=== PATIENT | female | born 1950 | race Caucasian/White ===

== ENCOUNTER → 2018-01-21 12:41 | Outpatient (CLI) | payer MEDICARE, OTHER, SELFPAY ==
--- NOTE | 2018-01-21 12:43 | ECHOD_ITS ---
Reason For Study: GALLOP RHYTHM Procedure This was a 2D Doppler, Color Flow transthoracic echocardiogram. Exam performed in department. Left Ventricle Normal LV size. Left ventricular systolic function is normal. The estimated ejection fraction is 60 %. Transmitral diastolic flow velocities suggest mild (stage 1) diastolic dysfunction (reversed pattern). No regional wall motion abnormalities noted. Right Ventricle Normal RV size. Normal systolic function. Atria Normal left atrium. Normal right atrium. Mitral Valve Normal mitral valve. Mild (1+) eccentric mitral valve insufficiency. Tricuspid Valve Normal tricuspid valve. Mild (1+) tricuspid valve insufficiency. Pulmonary artery systolic pressure is 29 mmHg. Aortic Valve Normal aortic valve. Pulmonic Valve The pulmonic valve is not well visualized. Great Vessels Normal aortic root. The pulmonary artery is normal size. Normal inferior vena cava. Pericardium/Pleural No pericardial effusion. MMode/2D Measurements & Calculations LVIDd: 3.6 cm IVSd: 1.1 cm Ao root diam: 3.1 cm LVIDs: 2.6 cm LVPWd: 1.0 cm RVDd: 3.0 cm FS: 27.2 % LAV(MOD-bp): 44.7 ml EDV(MOD-sp4): 80.0 ml SV(MOD-sp4): 46.6 ml LAV(MOD-bp) Indexed: 23.1 ml/m2 ESV(MOD-sp4): 33.4 ml LAV(MOD-sp2): 44.4 ml EF(MOD-sp4): 58.3 % LAV(MOD-sp4): 41.6 ml LA A4 area: 16.5 cm2 RA A4 area: 13.0 cm2 Time Measurements MV dec time: 0.19 sec Doppler Measurements & Calculations MV E max gabriel: 67.9 cm/sec Lat Peak E' Gabriel: 13.3 cm/sec Med Peak E' Gabriel: 9.3 cm/sec MV A max gabriel: 79.9 cm/sec E/E' lat: 5.1 E/E' med: 7.3 MV E/A: 0.85 Ao V2 max: 136.5 cm/sec LV V1 max: 94.8 cm/sec PA V2 max: 145.2 cm/sec Ao max P.5 mmHg LV V1 max P.6 mmHg TR max gabriel: 259.1 cm/sec TR max P.9 mmHg Interpretation Summary Normal LV size. Left ventricular systolic function is normal. The estimated ejection fraction is 60 %. Transmitral diastolic flow velocities suggest mild (stage 1) diastolic dysfunction (reversed pattern). Mild (1+) eccentric mitral valve insufficiency. Mild (1+) tricuspid valve insufficiency. Ordering Physician: Damian Craig Referring Physician: Damian Craig Performed By: Andriy, Melissa, RDCS
== END ==
PROVIDERS: Family Provider Family Medicine; PCP Family Medicine; Visit Provider Family Medicine
DX: R00.8 Other abnormalities of heart beat (principal)
CPT/HCPCS: 93306

== ENCOUNTER → 2018-01-22 07:38 | Outpatient (CLI) | payer MEDICARE, SELFPAY ==
[2018-01-22 10:07] LABS: Absolute Lymphocyte Count 1.29 X10^3/ul (0.83-4.51); Absolute Neutrophil Count 2.9 X10^3/uL (2.0-7.7); Basophil# 0.01 X10^3/uL; Basophil% 0.2 % (0-1); Eosinophil# 0.24 X10^3/uL; Hematocrit 41.5 % (37-47); Hemoglobin 13.7 g/dl (12.0-15.0); Lymphocyte # 1.29 X10^3/ul (4.0); Lymphocyte % 26.7 % (19-41); Mean Corpuscular Hgb 30.4 pg (27.0-32.0); Mean Corpuscular Volume 92.2 fL (81-99); Mean Platelet Vol. 9.7 fl (6.2-12.0); Monocyte% 8.3 % (0-10); Neutrophil # 2.89 X10^3/uL (2.7-7.7); Neutrophil % 59.8 % (47-70); Platelet Count 181 K/mm3 (150-450); RBC Distribution Width CV 13.3 % (11.6-14.6); White Blood Count 4.8 K/mm3 (4.4-11.0)
[2018-01-22 10:09] LABS: POSITIVE COUNT NO; POSITIVE DIFFERENTIAL NO; POSITIVE MORPHOLOGY NO
[2018-01-22 10:45] LABS: ALB/GLOB Ratio 0.8 RATIO (0.9-2.4); AST(SGOT) 15 U/L (15-37); Alanine Aminotransfer ALT/SGPT 18 U/L (13-56); Alkaline Phosphatase 80 U/L (45-117); Anion Gap 9 (5-15); BUN 14 mg/dL (7-18); BUN/Creat Ratio 22.8 RATIO (10-20); Calcium,Total 8.5 mg/dL (8.5-10.1); Chloride 108 mmol/L (98-107); Cholesterol 227 mg/dL (200); Creatinine, Serum 0.61 mg/dL (0.55-1.02); EST Glomerular Filtration Rate 104 mL/min (>60); Est Glom Filt Rate - Afr Amer 126 mL/min (>60); Globulin 3.6 g/dL (2.2-4.2); Glucose 88 mg/dL (74-106); High Density Lipoprotein 55 mg/dL; Potassium 4.1 mmol/L (3.5-5.1); Protein, Total 6.6 g/dL (6.4-8.2); Sodium Level 142 mmol/L (136-145); Thyroid Stim Hormone (TSH) 3.87 uIU/mL (0.358-3.74); Triglycerides 80 mg/dL; Very Low Density Lipoprotein 16 mg/dL (5-40)
== END ==
PROVIDERS: Family Provider Family Medicine; PCP Family Medicine; Visit Provider Family Medicine
DX: Z00.00 Encounter for general adult medical examination without abnormal findings (principal); N81.4 Uterovaginal prolapse, unspecified; R00.8 Other abnormalities of heart beat
CPT/HCPCS: 36415; 80053; 80061; 84443; 85025

== ENCOUNTER 2018-01-29 07:07 | Day surgery (SDC) | payer MEDICARE, OTHER, SELFPAY ==
[2018-01-29] VITALS (8 sets, daily range): BP systolic 104–138; BP diastolic 53–84; PULSE 78–110; RESP 16–18; TEMP 36.3–36.9; O2SAT 94–98; BMI 35.2
[2018-01-29] MEDS: Phenazopyridine 95 MG Tablet 190 MG PO (07:00)
--- NOTE | 2018-01-29 08:24 | PCM.OPRPT ---
Problem List (1) Uterovaginal prolapse, incomplete Status: Acute (2) Female stress incontinence Status: Acute Report of Operation Date of Procedure: 01/29/18 Pre-Operative Diagnosis: Uterovaginal prolapse and stress incontinence Post-Operative Diagnosis: same Surgery/Procedure Performed:: Total vaginal hysterectomy, bilateral salpingectomy, uterosacral ligament suspension, anterior colporrhaphy, midurethral sling and cystoscopy Description of Surgical Findings:: The patient was taken to the operating room where general anesthesia was initiated. The patient was placed in dorsal lithotomy position and prepped and draped in sterile fashion. A surgical timeout occurred. A sandy catheter was placed in the patient's bladder. A weighted speculum was placed in the patient's vagina. A curved [place] was used to retract the anterior vaginal wall and bladder out of the field. The cervix was grasped with two Kati traction forceps. The cervix was then injected with 0.25% marcaine mixed with epinephrine. A circumferential incision with a 10 blade scalpel was then made incising the vagina mucosa down to the body of the cervix. The posterior vaginal epithelium was then dissected off the cervix until the peritoneum of the pouch of Ward was reached. This was then grasped and cut with Orta scissors entering the peritoneal cavity. A long weighted speculum was then placed in the posterior cul-de-sac. Attention was then turned to the anterior vaginal wall epithelium which was grasped with pickups and dissected, along with the bladder, off of the cervix and the uterus until the peritoneal reflection was visualized. This was then grasped with pickups and incised with Metzenbaum scissors, entering the peritoneal cavity anteriorly. The sanyd bulb was palpated to confirm that the bladder was not perforated. The Ping was then used to retract the bladder out of the operative field. A curved Beverly clamp was then used to clamp, cut and suture ligate the uterosacral ligament on the patient's left side. This was repeated on the contralateral side. Next, the vessels of the broad ligament including the uterine vessels were clamped, cut and suture ligated bilaterally. Finally, the utero-ovarian ligament was clamped cut and suture ligated; first with a tie on a passer and then with a Beverly stitch. The uterus and cervix were passed off the sterile field and sent to pathology. With two Breisky Navratil retractors placed anteriorly and posteriorly in the vagina, the bowel was packed out of the cul-de-sac using a moist Kerlex sponge. A 0-Maxon with an HGU-46 needle on a long needle road train driver was passed through the uterosacral ligament on the patients right side. This was followed by a 2-0 prolene suture using an SH needle. This was repeated on the contralateral side. The instruments and packing were removed from the vagina. The patient was given 5 mg of Lasix IV and 5 cc of Indigo [place]. Cystoscopy was then performed while holding tension on the uterosacral ligament suspensions sutures. Bilateral efflux of orange urine was seen from ureteral orifices. The vaginal epithelium overlying the anterior vaginal wall was grasped with two Allis clamps, injected with 0.25% Marcaine with epinephrine and a midline incision was made over the herniation of the anterior vaginal wall. The underlying pubocervical fascia was dissected off the overlying vaginal epithelium until the herniation of the pubocervical fascia was completely exposed. Hemostasis was achieved with electrosurgical cautery. The herniation was repaired in the traditional fashion using imbricating horizontal mattress sutures of 2-O PDS on a CT-1 needle. Once the hernation was completely repaired, the redundant vaginal epithelium was excised and the incision was closed with a running, locking 3-O vicryl suture. Excellent hemostasis was noted. The sutures were then bought through the corners of the vaginal cuff. The cuff was closed with interrupted 0-vicryl sutures. The uterosacral ligament sutures were then tied, elevating the vaginal vault. The vaginal epithelium overlying the mid-urethra was grasped with two Allis clamps, injected with 0.25% Marcaine with epinephrine and a 1.5 cm midline incision was made over the mid urethra using a 15 blade scalpel. Tunnels were dissected bilaterally to the pubic rami and the Advantage Fit trocars were passed through the tunnels on the right side, through the space of Retzius and out the skin at at the pubic symphysis. This was repeated on the patient's left side. Cystoscopy was performed and there was no evidence of bladder or urethral injury. The sling was then drawn up through the space of Retzius and out the skin at the pubic symphysis. Tension was adjusted by placing a Wangensteen forceps between the sling and the urethra. Once adequate tension was adjusted, the plastic sheaths were removed. The redundant sling was trimmed at the skin edges and the skin was repaired with Indermil. The vaginal epithelium was repaired with a running 3-0 Vicryl suture. The vagina was packed with Kerlex gauze soaked in estrogen cream. Anesthesia was discontinued. All needle, instrument, and sponge counts were correct x 2. The patient was taken to recovery room in stable condition draining clear urine from her sandy catheter. materials supervisor: Naty Mehta Type of Anesthesia:: General - Endotracheal
--- NOTE | 2018-01-29 08:29 | OP.PCM_ITS ---
Problem List (1) Uterovaginal prolapse, incomplete Status: Acute (2) Female stress incontinence Status: Acute Report of Operation Date of Procedure: 01/29/18 Pre-Operative Diagnosis: Uterovaginal prolapse and stress incontinence Post-Operative Diagnosis: same Surgery/Procedure Performed:: Total vaginal hysterectomy, bilateral salpingectomy, uterosacral ligament suspension, anterior colporrhaphy, midurethral sling and cystoscopy Description of Surgical Findings:: The patient was taken to the operating room where general anesthesia was initiated. The patient was placed in dorsal lithotomy position and prepped and draped in sterile fashion. A surgical timeout occurred. A sandy catheter was placed in the patient's bladder. A weighted speculum was placed in the patient's vagina. A curved [place] was used to retract the anterior vaginal wall and bladder out of the field. The cervix was grasped with two Kati traction forceps. The cervix was then injected with 0.25% marcaine mixed with epinephrine. A circumferential incision with a 10 blade scalpel was then made incising the vagina mucosa down to the body of the cervix. The posterior vaginal epithelium was then dissected off the cervix until the peritoneum of the pouch of Ward was reached. This was then grasped and cut with Orta scissors entering the peritoneal cavity. A long weighted speculum was then placed in the posterior cul-de-sac. Attention was then turned to the anterior vaginal wall epithelium which was grasped with pickups and dissected, along with the bladder, off of the cervix and the uterus until the peritoneal reflection was visualized. This was then grasped with pickups and incised with Metzenbaum scissors, entering the peritoneal cavity anteriorly. The sandy bulb was palpated to confirm that the bladder was not perforated. The Ping was then used to retract the bladder out of the operative field. A curved Beverly clamp was then used to clamp, cut and suture ligate the uterosacral ligament on the patient's left side. This was repeated on the contralateral side. Next, the vessels of the broad ligament including the uterine vessels were clamped, cut and suture ligated bilaterally. Finally, the utero-ovarian ligament was clamped cut and suture ligated; first with a tie on a passer and then with a Beverly stitch. The uterus and cervix were passed off the sterile field and sent to pathology. With two Breisky Navratil retractors placed anteriorly and posteriorly in the vagina, the bowel was packed out of the cul-de-sac using a moist Kerlex sponge. A 0-Maxon with an HGU-46 needle on a long needle coal tram driver was passed through the uterosacral ligament on the patients right side. This was followed by a 2- 0 prolene suture using an SH needle. This was repeated on the contralateral side. The instruments and packing were removed from the vagina. The patient was given 5 mg of Lasix IV and 5 cc of Indigo [place]. Cystoscopy was then performed while holding tension on the uterosacral ligament suspensions sutures. Bilateral efflux of orange urine was seen from ureteral orifices. The vaginal epithelium overlying the anterior vaginal wall was grasped with two Allis clamps, injected with 0.25% Marcaine with epinephrine and a midline incision was made over the herniation of the anterior vaginal wall. The underlying pubocervical fascia was dissected off the overlying vaginal epithelium until the herniation of the pubocervical fascia was completely exposed. Hemostasis was achieved with electrosurgical cautery. The herniation was repaired in the traditional fashion using imbricating horizontal mattress sutures of 2-O PDS on a CT-1 needle. Once the hernation was completely repaired , the redundant vaginal epithelium was excised and the incision was closed with a running, locking 3-O vicryl suture. Excellent hemostasis was noted. The sutures were then bought through the corners of the vaginal cuff. The cuff was closed with interrupted 0-vicryl sutures. The uterosacral ligament sutures were then tied, elevating the vaginal vault. The vaginal epithelium overlying the mid-urethra was grasped with two Allis clamps, injected with 0.25% Marcaine with epinephrine and a 1.5 cm midline incision was made over the mid urethra using a 15 blade scalpel. Tunnels were dissected bilaterally to the pubic rami and the Advantage Fit trocars were passed through the tunnels on the right side, through the space of Retzius and out the skin at at the pubic symphysis. This was repeated on the patient's left side. Cystoscopy was performed and there was no evidence of bladder or urethral injury. The sling was then drawn up through the space of Retzius and out the skin at the pubic symphysis. Tension was adjusted by placing a Wangensteen forceps between the sling and the urethra. Once adequate tension was adjusted, the plastic sheaths were removed. The redundant sling was trimmed at the skin edges and the skin was repaired with Indermil. The vaginal epithelium was repaired with a running 3-0 Vicryl suture. The vagina was packed with Kerlex gauze soaked in estrogen cream. Anesthesia was discontinued. All needle, instrument, and sponge counts were correct x 2. The patient was taken to recovery room in stable condition draining clear urine from her sandy catheter. patient services representative: Naty Mehta Type of Anesthesia:: General - Endotracheal
--- NOTE | 2018-01-29 08:45 | UT_PTH ---
PATIENT: KRISTA TALAVERA LOC: [facility] [place] U#:[id number] AGE/SX: 67/F ROOM: RE01/29/[address]: Dr. Negrita Cortez MD : 1950 BED: DIS: 01/29/2018 SPEC #: [id number] RECD: 01/29/18 12:26 STATUS: ALEXEI JERO #: [id number] ZHEN: 01/29/18 08:[address]: Negrita Cortez DEPT: SURGICAL PATHOLOGY RECD BY: Fer Bran ENTERED: 01/29/18 13:13 SP TYPE: UTERUS OTHR DR: Dr. Damian Craig MD Tissues: Uterus, NOS Procedures: Surgery Specimen Level V HEADER OPERATION: Hysterectomy, total vaginal, anterior repair, sling, cysto, uterosacral ligament fixation PRE-OP DIAGNOSIS: Uterovaginal prolapse; stress urinary incontinence TISSUE SUBMITTED: Uterus, vaginal mucosa MICROSCOPIC DIAGNOSIS Uterus, vaginal mucosa, total vaginal hysterectomy with anterior repair: Cervix ? mild chronic inflammation. Endometrium ? inactive endometrium with cystic changes. Myometrium ? adenomyosis. - focal subserosal benign glandular inclusion. Vaginal mucosa ? fragments of squamous mucosa with focal hyperkeratosis and parakeratosis. SJ:yvonne 02/01/18 MICROSCOPIC DESCRIPTION Slides are reviewed. GROSS DESCRIPTION Received in fixative is one container labeled with the patient's name and designated uterus and vaginal mucosa. The specimen consists of a uterus with cervix without fallopian tubes and ovaries measuring 7.6 x 4 x 3.5 cm and weighing 45.5 gm. The ectocervix is unremarkable. The cervical os is [place] in contour. The endocervical canal measures 3 cm in length and is grossly unremarkable. The triangular endometrial cavity measures 3.5 x 2 cm. The velvety, light steward endometrium measures up to 0.2 cm. The myometrium measures 1.5 cm in greatest thickness and is free of mass lesions. Also present in the container are two glistening fragments of pink-steward mucosa with attached hemorrhagic submucosal tissue measuring in aggregate 5 x 5 x 0.6 cm. No mucosal mass lesions are identified. Plumbing Assembler Installer sections are submitted in six cassettes as follows: 1 - anterior cervix, 2 - posterior cervix, 3 & 4 - anterior uterine wall, 5 - posterior uterine wall, 6 ? vaginal mucosa. / AM:yvonne 01/29/18 TC:5 CPT: 62135
[2018-01-29] MEDS: Bupiv/Epi 0.5% Mpf 30 ML Vial (08:57)
[2018-01-29] MEDS: Cefazolin 2 GM in 0.9% Normal Saline 100 ML IV (08:57)
--- NOTE | 2018-01-29 10:19 | PCM.DC.VHY ---
Discharge Activity: Return to Normal Activity, May not drive while taking narcotic pain medications. May shower in (days): 1 May resume sexual activity in: 6 weeks Call your doctor if your incision/area has: Continuous Slow Oozing, Sudden Increased Bleeding, Increased Pain/ Swelling, Increased Redness, Foul Smelling Discharge, Swelling at the incision site Call your doctor if you observe: Fever of 101 or Higher, Inability to urinate, Inability to have a bowel movement, Using more than one pad per hour Allergies/Adverse Reactions: Allergies No Known Allergies Allergy (Verified 01/22/18 10:07) Medications to take at Discharge Paroxetine HCl [Paxil] 20 mg PO DAILY 01/22/18 Primary Care Physician: Damian Craig MD [Primary Care Provider] - Please Follow Up With: Negrita Cortez MD When: 6 weeks Proposed Discharge Date: 01/29/18
--- NOTE | 2018-01-29 14:47 | NURSING ---
BLADDER SCAN SHOWS [phone], PT CONTINUES TO DENY URGE TO VOID. SITTING AT EDGE OF BED TAKING PO FLUIDS NOW. WILL CONTINUE TO MONITOR.
== END 2018-01-29 16:02 | disposition home or self-care (01) ==
LOC: SDC 07:09 → AC 07:09 → MS2 08:50 → AC 10:54
PROVIDERS: Family Provider Family Medicine; PCP Family Medicine; Visit Provider Obstetrics & Gynecology
PROC: (CPT 58260; principal; 2018-01-29 08:25)
DX: N80.0 Endometriosis of uterus (principal); N89.4 Leukoplakia of vagina; N72 Inflammatory disease of cervix uteri; R23.4 Changes in skin texture; N39.3 Stress incontinence (female) (male); F32.9 Major depressive disorder, single episode, unspecified; F41.9 Anxiety disorder, unspecified; Z79.899 Other long term (current) drug therapy; Z87.891 Personal history of nicotine dependence
CPT/HCPCS: 57240; 57288; 58260; 58700; 88307; J7120; C1771; J2405

== ENCOUNTER → 2018-02-09 14:56 | Outpatient (CLI) | payer MEDICARE, OTHER, SELFPAY ==
--- NOTE | 2018-02-09 14:57 | BI_ITS ---
MAMMOGRAPHY - BILATERAL SCREENING REASON FOR EXAM: Female, 67 years old. Routine annual screening examination. PERTINENT HISTORY: Grandmother with breast cancer. Remote left stereotactic breast biopsy. TECHNIQUE: Digital bilateral breast jenny (3D mammographic acquisition) in the CC and MLO projections. 2-D mediolateral oblique (MLO) and craniocaudad (CC) views of both breasts were obtained. CAD: Full Field Digital Mammography with Computer Added Detection was performed. COMPARISON: Comparison is made with prior study dated December 25, 2016 and November 19, 2015. FINDINGS: Breast Composition: The breasts are almost entirely fatty. There are no dominant masses or suspicious calcifications. A tissue clip marker is once again seen in the upper lateral portion of the left breast. No other significant abnormalities are identified. There has been no significant change since the prior study. BI/SCREENING MAMM (CAD), BILAT IMPRESSION: Stable bilateral screening mammogram. Yearly follow-up mammogram recommended. (A) ASSESSMENT CATEGORY: BIRADS Category 2: Benign. A letter regarding these results will be sent to the patient by the facility within 30 days. Approximately 10% of breast cancers are not detected by mammography. A normal mammogram should not delay biopsy of a clinically suspicious abnormality. [id number] Electronically Signed: Xavier Crane MD at 8:14 EDT Tel [phone], Service support ,
== END ==
PROVIDERS: Family Provider Family Medicine; PCP Family Medicine; Visit Provider Family Medicine
DX: Z12.31 Encounter for screening mammogram for malignant neoplasm of breast (principal)
CPT/HCPCS: 77063; 77067

== ENCOUNTER → 2018-08-11 12:22 | Outpatient (CLI) | payer MEDICARE, OTHER, SELFPAY ==
--- NOTE | 2018-08-11 12:27 | RAD_ITS ---
STUDY: X-RAY - PELVIS AND LEFT HIP REASON FOR EXAM: Female, 68 years old. Left hip pain TECHNIQUE: Radiological exam, hip, unilateral, with pelvis when performed; 2 or 3 views. COMPARISON: None. FINDINGS: Severe osteoarthritic changes are seen in the right hip. Moderate osteoarthritic changes are seen in the left hip. The sacroiliac joints are normal. There are no fractures. RAD/HIP, UNI W/ Pelvis 2-3 Views IMPRESSION: Osteoarthritis of both hips especially on the right. No fracture Electronically Signed: Suleman Murphy MD at 4:56 EST Tel , Service support ,
== END ==
PROVIDERS: Family Provider Family Medicine; PCP Family Medicine; Referring Provider Family Medicine; Visit Provider Family Medicine
DX: M25.552 Pain in left hip (principal)
CPT/HCPCS: 73502

== ENCOUNTER → 2019-06-01 | Outpatient (CLI) | payer MEDICARE, OTHER, SELFPAY ==
--- NOTE | 2019-06-01 07:59 | BI_ITS ---
MAMMOGRAPHY - BILATERAL SCREENING REASON FOR EXAM: Female, 69 years old. Routine annual screening examination. PERTINENT HISTORY: Grandmother with breast cancer. Remote left stereotactic breast biopsy. TECHNIQUE: Digital bilateral breast mague (3D mammographic acquisition) in the CC and MLO projections. 2-D mediolateral oblique (MLO) and craniocaudad (CC) views of both breasts were obtained. CAD: Full Field Digital Mammography with Computer Added Detection was performed. COMPARISON: Comparison is made with prior study dated February 09, 2018 and December 25, 2016. FINDINGS: Breast Composition: The breasts are almost entirely fatty. There are no dominant masses or suspicious calcifications. A tissue clip marker is once again seen in the upper lateral aspect of the left breast No other significant abnormalities are identified. There has been no significant change since the prior study. BI/SCREEN MAMM (CAD) W/MAGUE BILAT IMPRESSION: Stable bilateral screening mammogram. Yearly follow-up mammogram recommended. (A) ASSESSMENT CATEGORY: BIRADS Category 2: Benign. A letter regarding these results will be sent to the patient by the facility within 30 days. Approximately 10% of breast cancers are not detected by mammography. A normal mammogram should not delay biopsy of a clinically suspicious abnormality. [id number] Electronically Signed: Xavier Crane, at 10:36 EDT , Service support ,
== END | disposition home or self-care (01) ==
LOC: OPBI 07:56
PROVIDERS: Family Provider Family Medicine; PCP Family Medicine; Referring Provider Family Medicine; Visit Provider Family Medicine
DX: Z12.31 Encounter for screening mammogram for malignant neoplasm of breast (principal)
CPT/HCPCS: 77063; 77067

== ENCOUNTER → 2020-05-17 | Outpatient (CLI) | payer MEDICARE, OTHER, SELFPAY ==
[2020-05-17 10:08] LABS: Absolute Lymphocyte Count 1.33 X10^3/uL (0.83-4.51); Absolute Neutrophil Count 2.7 X10^3/uL (2.0-7.7); Basophil# 0.01 X10^3/uL; Basophil% 0.2 % (0-1); Eosinophil# 0.13 X10^3/uL; Eosinophils% 2.8 % (0-5); Hematocrit 41.8 % (37-47); Hemoglobin 13.4 g/dL (12.0-15.0); Lymphocyte # 1.33 X10^3/ul (4.0); Lymphocyte % 29.1 % (19-41); Mean Corp Hgb Conc 32.1 g/dL (32-36); Mean Corpuscular Hgb 30.4 pg (27.0-32.0); Mean Corpuscular Volume 94.8 fL (81-99); Mean Platelet Vol. 9.5 fl (6.2-12.0); Monocyte# 0.35 X10^3/uL; Monocyte% 7.7 % (0-10); NRBC Flagged by Analyzer 0 % (0-5); Neutrophil # 2.74 X10^3/uL (2.7-7.7); Platelet Count 174 K/mm3 (150-450); RBC Distribution Width CV 12.2 % (11.6-14.6); RBC Distribution Width SD 42.3 fl (35.1-43.9); Red Blood Count 4.41 M/mm3 (4.2-5.4); White Blood Count 4.6 K/mm3 (4.4-11.0)
[2020-05-17 10:25] LABS: Hemoglobin A1c 5.2 % (3.8-5.6)
[2020-05-17 10:28] LABS: Vitamin D,25 Hydroxy 40.7 ng/mL
[2020-05-17 10:33] LABS: Anion Gap 3 (5-15); BUN 18 mg/dL (7-18); Calcium,Total 8.6 mg/dL (8.5-10.1); Chloride 110 mmol/L (98-107); Cholesterol 188 mg/dL (200); Creatinine, Serum 0.55 mg/dL (0.55-1.02); EST Glomerular Filtration Rate 118 mL/min (>60); Est Glom Filt Rate - Afr Amer 143 mL/min (>60); Glucose 93 mg/dL (74-106); High Density Lipoprotein 50 mg/dL; Sodium Level 142 mmol/L (136-145); Thyroid Stim Hormone (TSH) 3.59 uIU/mL (0.358-3.74); Triglycerides 72 mg/dL; Very Low Density Lipoprotein 14 mg/dL (5-40)
== END | disposition home or self-care (01) ==
LOC: MFPLAB 08:06
PROVIDERS: PCP Family Medicine; Referring Provider Family Medicine; Visit Provider Family Medicine
DX: M19.90 Unspecified osteoarthritis, unspecified site (principal); M85.80 Other specified disorders of bone density and structure, unspecified site; E66.9 Obesity, unspecified; Z68.32 Body mass index [BMI] 32.0-32.9, adult
CPT/HCPCS: 36415; 80048; 80061; 82306; 83036; 84443; 85025

== ENCOUNTER → 2020-05-23 | Outpatient (CLI) | payer MEDICARE, OTHER, SELFPAY ==
[2018-01-29 08:14] VITALS: BMI 35.2
--- NOTE | 2020-05-23 08:27 | BD_ITS ---
STUDY: DUAL ENERGY X-RAY ABSORPTIOMETRY / DXA REASON FOR EXAM: Female, 70 years old. Pat is 187# and 63.25 and quot; a loss of 1.75 and quot; per pat. Early edgar 35. Hx of HRT. Past hx of smoking 50 yrs ago. Was on a bone building med in the past but for only a few months. Exercises moderatly. TECHNIQUE: Bone Mineral Density (BMD) measurements of lumbar spine and bilateral hips were obtained. COMPARISON: Comparison is made with prior examination dated 05/08/2011. FINDINGS: Lumbar Spine (L1-L4): g/cm2 (1.124) / T-score (-0.6) / Z-score (1.0) Findings are suggestive of normal bone density with a low fracture risk. Left Femur Total: g/cm2 (0.693) / T-score (-2.5) / Z-score (-1.1) Left Femoral Neck: g/cm2 (0.945) / T-score (-0.7) / Z-score (0.9) Right Femur Total: g/cm2 (0.721) / T-score (-2.3) / Z-score (-0.9) Right Femoral Neck: g/cm2 (0.901) / T-score (-1.0) / Z-score (0.6) The T-Scores on the most recent prior examination were: Lumbar Spine (L1-L4): There has been improvement of bone density since the previous examination. Left Femur Total: which represents a worsening of 17%. Right Femur Total: which represents a worsening of 12.9%. BD/Dexa Bone Density Study IMPRESSION: The patient is considered osteopenic as outlined below according to World Maxx Organization (WHO) criteria with a high fracture risk. There has been worsening of bone density since the previous examination. Reference Information: The T-score is the number of standard deviations above or below the standard which is normal for young adults at their peak bone mineral density. The World Health Organization (WHO) interprets the T-scores as follows: Above -1 Normal bone density Between -1 and -2.5 Osteopenia Equal to / or below -2.5 Osteoporosis As a practical clinical guideline, osteopenia may be graded as follows: Mild -1 through -1.5 Moderate -1.6 through -2.0 Severe -2.1 through -2.4 The Z-score is the number of standard deviations above or below age-matched controls. A Z-score of less than -1.5 would be considered abnormal. References: 1. NIH Osteoporosis and Related Bone Diseases http://www.osteo.org 2. International Society for Clinical Densitometry http://www.iscd.org 3. National Osteoporosis Foundation http://www.nof.org Electronically Signed: Xavier Crane, at 15:54 EDT , Service support ,
== END | disposition home or self-care (01) ==
LOC: OPBD 08:19
PROVIDERS: PCP Family Medicine; Referring Provider Family Medicine; Visit Provider Family Medicine
DX: M85.80 Other specified disorders of bone density and structure, unspecified site (principal); N95.9 Unspecified menopausal and perimenopausal disorder
CPT/HCPCS: 77080

== ENCOUNTER 2020-06-27 10:00 | Outpatient (RCR) | payer MEDICARE, OTHER, SELFPAY ==
[2018-01-29 08:14] VITALS: BMI 35.2
--- NOTE | 2020-05-24 12:52 | HP.PTEVAL_ITS ---
Patient's Visit Information KRISTA TALAVERA is a 70 year old F referred to Physical Therapy by Dr. Damian Craig MD with a diagnosis of Bilateral Hip Pain. Date of Evaluation: 05/24/20 Physical Therapist: Lorenza Davis DPT - Visit Plan Frequency: 2x /Week Duration: 4 Weeks Plan: Focus on LE and core strength for functional mobility - Subjective Patient reports that she is having problems with both hips. She use to walk 4 miles and now just going to the grocery wears her out. Has problems with stairs, getting in/out of the car. The left one hurts more than the right. She has a truck so which is a harder one to get in/out of. Both hips bother her at night- sleep is disturbed when she rolls over onto them but then she can go right back to sleep. Worst: 3/10 Agg: being up on them. Best: 0/10 Eases: sit down- When she sit down the pain goes away instantly. When she rests and then gets back to it its okay. Pain is located in the groin- describes the pain as achy. When she is on her feet she feel like she has a weight on her low back. No radiating pain- No N/T in the LE. Did have bone density scans and x- rays on her hips. The right is worse than the left for OA- and will hear of her bone denisity tomorrow. She scrubbed a lot of floors when she was younger so she thinks that part of the problem and her balance is not that great- but has not had any falls. She would like to get more active but her hips are pr eventing that. PMHX: none Meds: Paxil. - Objective Posture: FH, RS, increased kyphosis- unable to correct and maintain. Gait: slightly antalgic- decreased stance bilateral with moderate hip drop. HR/TR: able without pain but uses UE. Stairs: asc/desc 8 recip with 2 HR- propulsion with UE and poor control with descent. SLS: unable without UE and reports pain in left hip. Palpation: tender along greater troch bilaterally andinto the gluts on the left. Sensation: WFL. ROM: Left: Hip- flexion: 90 degrees, extn: netral, IR: 30 derees, ER: neutral, Abd: 50 degrees, Knee/Ankle: WNL. Right: Hip- flexion: 100 degrees xtn: netral, IR: 30 derees, ER: neutral, Abd: 50 degrees, Knee/Ankle: WNL. Strength:Core: fair minus, Hip: 4-/5, Knee: 5/5, Ankle: 5/5. Special Test: Scour: positive, JEF: positive. Dural Signs: negative - Goals Goal 1:: Patient will be I with HEP and progression Goal Time Frame: 4-6 Weeks Goal 2:: Patient will ambulate >300 feet with a normalized gait pattern Goal Time Frame: 4-6 Weeks Goal 3:: Patient will asc/desc 8' stairs recip with 1 HR and good technique Goal Time Frame: 4-6 Weeks Goal 4:: Patient will demo 4+/5 throughout LE Goal Time Frame: 4-6 Weeks Goal 5:: Patient will report no more than 2/10 pain Goal Time Frame: 4-6 Weeks - Rehabilitation Potential Physical Therapy Diagnosis: Patient presents with hypomobility-she has decreased ROM,strength, flex and muscular endurance leading to abnormal gait and decreased ability to perform painfree ADL's Rehabilitation Potential: Fair - Anticipated Interventions Therapeutic Exercise to Include: Strength training, Endurance training, Balance training, Agility training, Body mechanics, Postural training, Flexibilty training, Gait and locomotor training, Neuromotor development, Passive ROM, Active ROM, Dynamic Lumbar Stabilization, Scapular Strength/Stabilization For the Purpose of:: To improve muscle performance and motor function TENS: Yes Cryotherapy (ice pack, ice massage): Yes Thermo therapy (hot pack): Yes Thank you for the opportunity to evaluate your patient. For Medicare and Medicare HMO plans, please review the plan of care and approve it. It will need to be FAXED BACK to us at [phone] for Medicare purposes. For Medicare only, by signing this I certify the plan of care. Please let me know if there are questions or concerns regarding this plan of care. Physician Signature: Date:
--- NOTE | 2020-06-27 10:51 | HP.PTDCSUM ---
It has been my pleasure to treat KRISTA TALAVERA referred by Dr. Damian Craig MD, with the diagnosis of Bilateral Hip Pain for a total of 10 visit(s). Discharge Date: Please see the following information for a summary of their discharge status. Subjective: Patient reports that she does not feel that she is doing a lot better. She feels she can continue the exercises at home. She reports that its not bad to walk but if she is in the store for an hour it starts to bother her and she wants to sit down. She feels stiff if she sits down for to long. Right Hip Pain Intensity (Out of 10): 4 Left Hip Pain Intensity (Out of 10): 4 % Improvement: 50 Objective/Function: Posture: FH, RS, increased kyphosis- unable to correct and maintain. Gait: slightly antalgic- decreased stance bilateral with moderate hip drop. HR/TR: able without pain but uses UE. Stairs: asc/desc 8 recip with 1 HR- fair form. SLS: weight shift fully but does not take her hands off the wall Palpation: tender along greater troch bilaterally andinto the gluts on the left. Sensation: WFL. Strength:Core: fair, Hip: 4/5, Knee: 5/5, Ankle: 5/5. Special Test: Scour: positive, JEF: positive. Dural Signs: negative Goal 1:: Patient will be I with HEP and progression Goal 2:: Patient will ambulate >300 feet with a normalized gait pattern Goal 3:: Patient will asc/desc 8' stairs recip with 1 HR and good technique Goal 4:: Patient will demo 4+/5 throughout LE Goal 5:: Patient will report no more than 2/10 pain Plan: Discharge to [facility] If there are questions or concerns regarding this patient's physical therapy, please feel free to call me at [phone]. Thank you for the referral of this patient. Sincerely, Lorenza Davis DPT
== END 2020-06-27 13:27 | disposition home or self-care (01) ==
LOC: PT 10:00
PROVIDERS: PCP Family Medicine; Referring Provider Family Medicine; Visit Provider Family Medicine
DX: M16.0 Bilateral primary osteoarthritis of hip (principal)
CPT/HCPCS: 97110; 97162; 97164

== ENCOUNTER → 2020-11-12 11:42 | Outpatient (CLI) | payer MEDICARE, OTHER, SELFPAY ==
[2018-01-29 08:14] VITALS: BMI 35.2
[2020-11-12 15:10] LABS: Absolute Lymphocyte Count 1.27 X10^3/uL (0.83-4.51); Basophil# 0.01 X10^3/uL; Basophil% 0.1 % (0-1); Eosinophil# 0.03 X10^3/uL; Eosinophils% 0.4 % (0-5); Hematocrit 47.3 % (37-47); Hemoglobin 15.2 g/dL (12.0-15.0); Lymphocyte # 1.27 X10^3/ul (4.0); Mean Corp Hgb Conc 32.1 g/dL (32-36); Mean Corpuscular Hgb 30.1 pg (27.0-32.0); Mean Corpuscular Volume 93.7 fL (81-99); Mean Platelet Vol. 9.5 fl (6.2-12.0); Monocyte# 0.41 X10^3/uL; Monocyte% 6.1 % (0-10); NRBC Flagged by Analyzer 0 % (0-5); Neutrophil # 4.97 X10^3/uL (2.7-7.7); Neutrophil % 74.3 % (47-70); Platelet Count 193 K/mm3 (150-450); RBC Distribution Width CV 12.1 % (11.6-14.6); RBC Distribution Width SD 42.2 fl (35.1-43.9); Red Blood Count 5.05 M/mm3 (4.2-5.4); White Blood Count 6.7 K/mm3 (4.4-11.0)
[2020-11-12 15:45] LABS: ALB/GLOB Ratio 0.9 RATIO (0.9-2.4); AST(SGOT) 15 U/L (15-37); Alanine Aminotransfer ALT/SGPT 19 U/L (13-56); Albumin, Serum 3.4 g/dL (3.2-5.0); Alkaline Phosphatase 94 U/L (45-117); Anion Gap 8 (5-15); BUN 18 mg/dL (7-18); BUN/Creat Ratio 26.7 RATIO (10-20); Calcium,Total 9.3 mg/dL (8.5-10.1); Chloride 108 mmol/L (98-107); Creatinine, Serum 0.68 mg/dL (0.55-1.02); EST Glomerular Filtration Rate 92 mL/min (>60); Est Glom Filt Rate - Afr Amer 111 mL/min (>60); Globulin 3.8 g/dL (2.2-4.2); Glucose 117 mg/dL (74-106); Potassium 4.1 mmol/L (3.5-5.1); Protein, Total 7.2 g/dL (6.4-8.2); Sodium Level 142 mmol/L (136-145); Thyroid Stim Hormone (TSH) 2.88 uIU/mL (0.358-3.74)
== END ==
PROVIDERS: PCP Family Medicine; Visit Provider Family Medicine
DX: I47.1 Supraventricular tachycardia (principal)
CPT/HCPCS: 36415; 80053; 84443; 85025

== ENCOUNTER → 2020-11-29 06:30 | Outpatient (CLI) | payer MEDICARE, OTHER, SELFPAY ==
[2020-11-21 08:56] VITALS: BMI 34.0
--- NOTE | 2020-11-29 06:33 | ECHOD_ITS ---
Reason For Study: A. fib Procedure This was a 2D Doppler, Color Flow transthoracic echocardiogram. Exam performed in department. Left Ventricle Normal LV size. Left ventricular systolic function is normal. The estimated ejection fraction is 65 %. Stage 1 diastolic dysfunction. No regional wall motion abnormalities noted. Right Ventricle Normal RV size. Normal systolic function. Atria Normal left atrium. Normal right atrium. Bubble contrast study negative for right to left interatrial shunt. Mitral Valve Normal mitral valve. Tricuspid Valve Normal tricuspid valve. Mild tricuspid valve insufficiency. Aortic Valve Normal aortic valve. Trisinus/trileaflet aortic valve. Mild (1+) eccentric aortic valve insufficiency. Pulmonic Valve The pulmonic valve is not well visualized. Great Vessels Normal aortic root. The pulmonary artery is normal size. Normal inferior vena cava. Pericardium/Pleural No pericardial effusion. Medication Performed a rapid injection of agitated mix of 9 cc saline and 1cc air to assess for atrial septal defect. MMode/2D Measurements & Calculations LVIDd: 3.6 cm IVSd: 1.1 cm Ao root diam: 3.2 cm LVIDs: 2.1 cm LVPWd: 1.0 cm RVDd: 3.3 cm FS: 41.0 % LAV(MOD-bp): 44.3 ml LVAd ap4: 28.7 cm2 SV(MOD-sp4): 51.4 ml LAV(MOD-bp) Indexed: 22.9 ml/m2 EDV(MOD-sp4): 78.3 ml LAV(MOD-sp2): 38.3 ml EDV(sp4-el): 80.7 ml LAV(MOD-sp4): 46.1 ml LVAs ap4: 15.1 cm2 ESV(MOD-sp4): 26.9 ml ESV(sp4-el): 26.4 ml EF(MOD-sp4): 65.6 % EF(sp4-el): 67.3 % SV(sp4-el): 54.3 ml LA A4 area: 17.0 cm2 LA dimension(2D): 4.0 cm RA A4 area: 12.2 cm2 Doppler Measurements & Calculations MV E max gabriel: 64.6 cm/sec Lat Peak E' Gabriel: 7.9 cm/sec Med Peak E' Gabriel: 9.1 cm/sec MV A max gabriel: 103.5 cm/sec E/E' lat: 8.2 E/E' med: 7.1 MV E/A: 0.62 Ao V2 max: 146.8 cm/sec AI max gabriel: 451.0 cm/sec LV V1 max: 118.1 cm/sec Ao max P.6 mmHg AI max P.4 mmHg LV V1 max P.6 mmHg AI dec slope: 426.7 cm/sec2 AI P1/2t: 309.6 msec PA V2 max: 166.8 cm/sec TR max gabriel: 234.9 cm/sec TR max P.1 mmHg Interpretation Summary Normal LV size. Left ventricular systolic function is normal. The estimated ejection fraction is 65 %. Stage 1 diastolic dysfunction. Bubble contrast study negative for right to left interatrial shunt. Mild tricuspid valve insufficiency. Ordering Physician: Xander Fitzgerald Referring Physician: Damian Craig MD Performed By: Deepti Bush RDCS
--- NOTE | 2020-11-29 09:19 | STRESSREP ---
Stress Test Report Exercise myocardial perfusion stress test. 70-year-old lady with a history of chest pain. Stress protocol: Resting EKG demonstrates normal sinus rhythm with a rate of 75 bpm normal intervals are noted resting blood pressure is 116/70 mmHg. The patient exercised according to regular Shahzad protocol for a total duration of 5 minutes and 30 seconds. The maximum heart rate attained was 164 bpm which was 107% of maximum predicted heart rate the maximum workload was 7 metabolic equivalents. At rest there were no ST or T wave changes noted suggest ischemia at peak exercise upsloping ST changes only were noted with no meet the criteria for ischemia. The resting blood pressure was 116/70 with a peak blood pressure 154/80 mmHg. Myocardial perfusion protocol. 11.5 mCi of technetium 99m sestamibi was injected at rest. The patient exercised according to regular Shahzad protocol for 5-1/2 minutes and at peak exercise 32.6 mCi of technetium 99m sestamibi was injected stress images were obtained stress and rest images were reconstructed and compared in the short axis vertical long horizontal long axis. Gated images were also obtained Perfusion SPECT analysis: Review of the stress images demonstrate normal uptake of tracer noted in all areas of the myocardium the resting images similarly demonstrate normal uptake of tracer noted in all areas of the myocardium. No areas of reversibility are noted suggest ischemia no previous infarct is noted. Gated SPECT analysis: The gated ejection fraction is 67%. Conclusion: Normal exercise myocardial perfusion stress test at a moderate workload. Preserved ejection fraction.
== END ==
PROVIDERS: PCP Family Medicine; Referring Provider Internal Medicine Cardiovascular Disease; Visit Provider Internal Medicine Cardiovascular Disease
DX: R94.31 Abnormal electrocardiogram [ECG] [EKG] (principal); I48.0 Paroxysmal atrial fibrillation
CPT/HCPCS: 78452; 93017; 93306; A9500; A4216

== ENCOUNTER 2021-01-31 09:18 | Outpatient (RCR) | payer MEDICARE, OTHER, SELFPAY ==
[2020-12-11 08:29] VITALS: BMI 34.0
[2021-01-03 10:34] VITALS: BMI 35.0
[2021-01-03 12:56] LABS: Prothrombin Time (Protime)PT. 12.5 SECONDS (11.7-14.9)
[2021-01-10 10:15] LABS: International Normalized Ratio 1.3; Prothrombin Time (Protime)PT. 15.9 SECONDS (11.7-14.9)
[2021-01-17 10:16] LABS: International Normalized Ratio 1.5; Prothrombin Time (Protime)PT. 17.6 SECONDS (11.7-14.9)
[2021-01-24 11:12] LABS: International Normalized Ratio 1.3; Prothrombin Time (Protime)PT. 15.9 SECONDS (11.7-14.9)
[2021-01-31 10:37] LABS: Prothrombin Time (Protime)PT. 21.6 SECONDS (11.7-14.9)
== END 2021-01-31 18:00 | disposition home or self-care (01) ==
LOC: LAB 09:18
PROVIDERS: PCP Family Medicine; Referring Provider Physician Assistant Medical; Visit Provider Physician Assistant Medical
DX: I48.0 Paroxysmal atrial fibrillation (principal)
CPT/HCPCS: 36415; 85610

== ENCOUNTER 2021-02-14 09:07 | Outpatient (RCR) | payer MEDICARE, OTHER, SELFPAY ==
[2021-01-03 10:34] VITALS: BMI 35.0
[2021-02-14 09:40] LABS: International Normalized Ratio 2.6; Prothrombin Time (Protime)PT. 27.4 SECONDS (11.7-14.9)
== END 2021-02-14 18:00 | disposition home or self-care (01) ==
LOC: LAB 09:07
PROVIDERS: PCP Family Medicine; Referring Provider Physician Assistant Medical; Visit Provider Physician Assistant Medical
DX: I48.0 Paroxysmal atrial fibrillation (principal)
CPT/HCPCS: 36415; 85610

== ENCOUNTER 2021-03-07 10:51 | Outpatient (RCR) | payer MEDICARE, OTHER, SELFPAY ==
[2021-01-03 10:34] VITALS: BMI 35.0
== END 2021-03-07 18:00 | disposition home or self-care (01) ==
LOC: LAB 10:51
PROVIDERS: PCP Family Medicine; Referring Provider Physician Assistant Medical; Visit Provider Physician Assistant Medical
DX: I48.0 Paroxysmal atrial fibrillation (principal)

== ENCOUNTER 2021-03-13 15:59 | Observation (INO) | payer MEDICARE, OTHER, SELFPAY ==
[2021-01-03 10:34] VITALS: BMI 35.0
--- NOTE | 2021-02-25 22:56 | PCM.HP.BLA ---
History and Physical History and Physical [facility] Patient Name: Joselin Singer : 1950 From:? TUYET ANDERSON PA-C? DATE OF SURGERY:? 03/13/2021 SCHEDULED PROCEDURE:? right total hip arthroplasty HISTORY OF PRESENT ILLNESS: This is a 70-year-old female who has had ongoing pain for over 2 years with regards to her right hip.? She also gets pain in the left hip.? Pain can reach 6/10 with activities.? Her pain has been gone, aching, stabbing.? She has increased pain with going up and down stairs, sitting, and walking.? She does get pain and bilateral groin as well as into the anterior thigh.? Denies any numbness and tingling.? She does have start up pain.? She has difficulty with activities of daily living including getting dressed as well as shopping.? She has tried rest with no relief in symptoms.? She has been through physical therapy and home exercises without relief.? She denies previous surgery on the right hip.? Patient has a medical history pertinent for hypertension, atrophic fibrillation in which she has on Coumadin.? We're obtaining surgical clearance from the primary care physician and records management technician .? Crime Prevention Worker was okay with stopping the Coumadin 3 days prior to surgery.? She will resume this postoperatively.? Patient denies any chest pain, shortness of breath, fevers chills or recent infections.? After failing conservative measures and discussing treatment options with Dr. Elmo Velásquez, the patient does wish to proceed with a right total hip arthroplasty. REVIEW OF SYSTEMS: ROS: Const: Reports weight change, but denies change in appetite and fever. CV: Reports irregular heartbeat, but denies chest pain and heart murmur. Resp: Denies cough, pneumonia, shortness of breath, tuberculosis and wheezing. GI: Denies constipation, diarrhea, heartburn, nausea, rectal itching, bloody stools and vomiting. : Reports incontinence. Musculo: Reports trouble walking and weakness, but denies leg swelling and pain. Skin: Denies Raynaud's, history of shingles and tattoo. Neuro: Denies ambulatory dysfunction, dizziness, numbness/tingling and tremor. Psych: Reports anxiety, but denies insomnia and stress. Eamon/Lymph: Denies anemia, bleeding/bruising tendency and past transfusion. Reviewed, no changes. PAST MEDICAL HISTORY: Advance Care Plan: Other Directive, POA Effective Date: 01/09/2021 Other Directive, LIVING WILL Effective Date: 01/09/2021 PMH: Medical Problems: Arthritis, Hard of Hearing, High Blood Pressure Covid-19 Vaccinated - (12/20/2020)(01/17/2021) A-Fib Accidents: None Surgical Hx: Hysterectomy, Tonsillectomy, Tubal Ligation Anesthesia Complications: None Assistive Devices: Glasses Reviewed, no changes. SOCIAL HISTORY: SH: Marital: .Occupation: Retired.Work Status: Retired.Hand Dominance: Left-handed. Personal Habits:? Cigarette Use: Former.Smokeless Tobacco: Never Used Smokeless Tobacco.E-Cigarette Use: Never used.Alcohol: Denies use.Drug Use: Denies Use.Enjoy Exercising: Never Exercises. Reviewed and updated. VITALS: Ht: 64.3 Wt: 204lb Wt k.534 BMI: 34.7 BP: 135/76 Pulse: 63 Resp: 14 T: 97.3 T: 36.3C Pain Level: 2 ALLERGIES: No Known Drug Allergy? MEDICATIONS: Warfarin Sodium 3 mg 1 daily, Metoprolol Tartrate 25 mg 1 by mouth twice a day, Super B Complex? 2 daily, Sarabjit Red , Magnesium Oxide (Elemental) 400 mg 2 daily, Paroxetine HCL 30 mg 1 by mouth every day, Calcium + D3? 2 daily, Tylenol 8 Hour Arthritis Pain 650 mg every 4 hour as needed pain PRE-OP EXAM:? General appearance:NORMAL? ? ? Other: Eyes: Conjunctivae and lids: NORMAL? Pupils: ERR Ears, Nose, Mouth, and Throat: NORMAL? Other: Inspection of lips, teeth and gums: NORMAL? ?Other: Neck: Examination of neck: no masses noted. Respiratory: Assessment of respiratory effort: NORMAL? ?Other: ?Auscultation of lungs: clear to auscultation no wheezes, rhonchi or rales. Cardiovascular:? Auscultation of heart: regular rate and rhythm, no murmurs, gallops or rubs. Exam of carotid arteries: NORMAL? ?Other: Gastrointestinal:? Exam of abdomen: soft, nontender, nondistended bowel sounds present. PHYSICAL EXAMINATION: Patient does walk with an antalgic gait.? There is tenderness to palpation over bilateral greater trochanteric region.? Right hip she has obligatory external rotation with flexion.? Flexion 60, internal rotation 10, external rotation 20.? Sensation intact to light touch.? Neurovascularly intact. IMAGING STUDIES: Previous x-rays of the right hip reveal joint space narrowing, subchondral sclerosis, osteophyte formation consistent with severe stage IV osteoarthritis IMPRESSION: 1.? Severe right hip osteoarthritis 2.? Left hip osteoarthritis 3.? Hypertension 4.? History of atrial fibrillation currently on Coumadin PLAN: Dr. Elmo Velásquez did discuss and review with the patient all treatment options including surgical versus nonsurgical options.? Patient does wish to proceed with the above-stated procedure.? Potential risks, benefits, and complications of the procedure were discussed in detail including but not limited to , infection, nerve and blood vessel damage, persistent pain, numbness, tingling, paresthesias, blood clot, pulmonary embolism, and requirement for possible further surgery.? The patient expressed full understanding and has no further questions for the doctor.? Patient does agree to proceed with the above-stated procedure and has signed the surgery consent form. We discussed the current risks associated with COVID 19.? This does include the risk of exposure while in the hospital.? Patient was reassured local hospitals have low infection rates and are taking all necessary precautions to avoid exposure to patients.? In addition, we discussed strategies that can be used to help limit exposure including those that limit the patient's time in the hospital.? Also using strategies to limit the patient's need for continued inpatient services after being discharged from the hospital.? Patient was notified that we will need to comply with any screening or testing the hospital wishes to perform or that surgery may be delayed for any positive results. This dictation was created using voice recognition software. Phonetic and/or grammatical errors may exist. ___? I have re-examined the patient.? There are no clinical changes since date of exam. ___? See progress notes for changes. ___? Dictated on admission Date: ? ? ?Time: Signature:
[2021-03-07 11:55] LABS: Absolute Lymphocyte Count 1.72 X10^3/uL (0.83-4.51); Absolute Neutrophil Count 3.3 X10^3/uL (2.0-7.7); Basophil# 0.03 X10^3/uL; Basophil% 0.5 % (0-1); Eosinophil# 0.11 X10^3/uL; Hematocrit 40.6 % (37-47); Hemoglobin 13.3 g/dL (12.0-15.0); Lymphocyte # 1.72 X10^3/ul (0.83-4.51); Lymphocyte % 30.7 % (19-41); Mean Corp Hgb Conc 32.8 g/dL (32-36); Mean Corpuscular Hgb 30.7 pg (27.0-32.0); Mean Corpuscular Volume 93.8 fL (81-99); Mean Platelet Vol. 9.5 fl (6.2-12.0); Monocyte# 0.42 X10^3/uL; Monocyte% 7.5 % (0-10); NRBC Flagged by Analyzer 0 % (0-5); Neutrophil # 3.32 X10^3/uL (2.7-7.7); Neutrophil % 59.1 % (47-70); Platelet Count 171 K/mm3 (150-450); RBC Distribution Width CV 12.5 % (11.6-14.6); RBC Distribution Width SD 43.3 fl (35.1-43.9); Red Blood Count 4.33 M/mm3 (4.2-5.4); White Blood Count 5.6 K/mm3 (4.4-11.0)
[2021-03-07 12:01] LABS: International Normalized Ratio 2.1; Prothrombin Time (Protime)PT. 22.7 SECONDS (11.7-14.9)
[2021-03-07 12:40] LABS: Anion Gap 4 (5-15); BUN 18 mg/dL (7-18); BUN/Creat Ratio 29.1 RATIO (10-20); Chloride 104 mmol/L (98-107); Creatinine, Serum 0.62 mg/dL (0.55-1.02); EST Glomerular Filtration Rate 102 mL/min (>60); Est Glom Filt Rate - Afr Amer 123 mL/min (>60); Glucose 90 mg/dL (74-106); Magnesium 2.4 mg/dL (1.6-2.6); Potassium 4.2 mmol/L (3.5-5.1); Sodium Level 139 mmol/L (136-145)
[2021-03-13] VITALS (15 sets, daily range): BP systolic 95–143; BP diastolic 55–78; PULSE 68–83; RESP 16; TEMP 36–37.1; O2SAT 95–100; BMI 36.1
--- NOTE | 2021-03-13 07:14 | OP.PCM_ITS ---
Report of Operation Date of Procedure: 03/13/21 Pre-Operative Diagnosis: Right hip primary osteoarthritis Post-Operative Diagnosis: Right hip primary osteoarthritis Surgery/Procedure Performed:: Right minimally invasive direct anterior total hip replacement Description of Surgical Findings:: Stable hip with equal leg length Surgeon: Elmo Velásquez bed operator: Shannon Mary Type of Anesthesia: Spinal Special Medications: 2 g Ancef, 2 g TXA lavage prior to closure, 10 mg Decadron, joint cocktail (5 mg Duramorph, 30 mL of 0.5% Ropivicaine, 1000 units of epinephrine, 30 mg of Toradol) Specimen's removed: Bony cuts Estimated Blood Loss (mL): 250 Fluids Replaced: 1000 mL crystalloid Description of Procedure: Components used: 1. Accolade 2 Jass femoral stem size 4 132? 2. [place] trident 2 acetabular shell size 52 mm 3. [place] X3 polyethylene E 4. Jass Biolox delta 36mm, -5mm femoral head Brief history operative indications: 71 yo F who failed conservative measures for their hip osteoarthritis. X-rays were consistent with osteoarthritis including joint space narrowing, osteophyte formation and subchondral cysts. Total hip replacement was discussed with the patient with risks and benefits including but not limited to blood loss, DVTs, PEs, neurovascular damage, dislocation, general risks of anesthesia including loss of life. Patient demonstrated an understanding medical clearance is obtained the patient was consented for surgery. Procedure: On the date of procedure the patient's right hip was marked in the preoperative area. Patient was then taken back to the operating room where anesthesia assumed control of the C-spine and airway and administered anesthetic. Patient was transferred to the operating table and placed in the supine position. The hips were placed at the break of the bed and a sacral bump was placed. The right lower extremity was then prepped out in a sterile fashion using chlorhexidine while the surgeon scrubbed. The PA was vital in the positioning of the patient. Upon reentering the room the right lower extremity was draped in the standard orthopedic fashion and the incision was marked. A timeout was called and everyone agreed upon the side, the site, the procedure be performed, antibody given, and patient's identity. At this time incision was made through skin, subcutaneous tissue, and fat down to fascia. The fascia was then incised and the TFL was retracted laterally. A retractor was placed on the lateral border of the femoral neck. Attention was directed to the inferior portion of the approach and all crossing vessels were identified and appropriately coagulated. A retractor was then placed on the medial portion of the femoral neck. The anterior capsule was then cleared of all soft tissue and then H shaped capsulotomy was made. The retractors were then placed inside the capsule. The femoral neck was identified and a cleanup cut was made. At this time a power corkscrew was used to remove the femoral head. Attention was then turned toward the acetabulum where the soft tissues were appropriately retracted and the acetabulum was sequentially reamed to 52 mm. A 52 mm cup was then selected and impacted into place. Acetabular liner was impacted into place and locking mechanism was verified. The position of the acetabular cup was then verified under live fluoroscopy. Attention was then turned to the femur. Soft tissue releases on the medial and lateral femoral neck were appropriately done, the leg was externally rotated and lateralized. A Baltazar retractor was placed medially and proximally to the greater trochanter this allowed appropriate visualization and exposure of the femoral canal. Rongeour was then used to remove excess lateral bone. A canal finder and entry broach were used to open the proximal canal. Once we verified we were down the femoral canal we subsequently broached up to a size 4 femur. The appropriate neck was placed in the previously selected head was trialed with a -5 mm neck. Traction was pulled and the hip was reduced with internal rotation. Once it was appropriately reduced and stability was checked. There was minimal shuck, equal leg lengths and appropriate stability with hyperextension and external rotation as well as with 90? flexion and internal rotation. Fluoroscopy was then also used to verify the position of the components and leg lengths using the contralateral side for comparison. The trial components were then dislocated the proximal femur was again exposed and the components were removed from the wound. The final components were verified and opened. The wound was copiously irrigated out with normal saline. The acetabulum was checked for any residual debris. The final components were placed and impacted. Traction and internal rotation were again used to reduce the hip. After adequate reduction the hip remained stable with appropriate leg lengths. The final components were once again checked with live fluoroscopy and were found to be satisfactory. The wound was then copiously irrigated with normal saline once more, and hemostasis was obtained. Closure was then done using #1 Vicryl runner to close the fascia. A 2-0 vicryl interuppted sutures were used to close the subcutaneous skin. A 3-0 Monocryl and Steri-Strips were used for final skin closure. A Silverlon dressing was placed. Patient was awakened by anesthesia and transferred to the [facility]. Patient was then transferred to the PACU for recovery. Postoperative plan: Patient will get 24 hours postop antibiotics. Patient will get in-house physical therapy and will be weight-bear as tolerated. Patient will follow up in office in 2 weeks for a wound check and x-rays. Patient will resume her Coumadin postoperatively for DVT prophylaxis she will bridge with Xarelto while in-house. Complications No intraoperative complications Admit VTE Documentation VTE Present on Admission: No VTE Mechan Device Prophylaxis: SCD's and Thigh High MARILYN Hose VTE Pharm Prophylaxis ordered?: Yes
[2021-03-13] MEDS: Lactated Ringers 1,000 ML 999 ML IV ×2 (09:04→12:16)
[2021-03-13] MEDS: Gabapentin 600 MG Tablet PO (09:04)
[2021-03-13] MEDS: Acetaminophen 500 MG Tablet 1000 MG PO ×3 (09:04→21:15)
[2021-03-13 09:14] LABS: International Normalized Ratio 1.1; Prothrombin Time (Protime)PT. 13.2 SECONDS (11.7-14.9)
[2021-03-13] MEDS: Lactated Ringers 1,000 ML 75 ML IV (09:25)
[2021-03-13] MEDS: Cefazolin 2 GM in 0.9% Normal Saline 100 ML IV (10:40)
--- NOTE | 2021-03-13 11:00 | HIP_PTH ---
PATIENT: KRISTA TALAVERA LOC: [id number] U#:[id number] AGE/SX: 71/F [place]: [facility] [place] [place]13/[address]: Dr. Lakshmi Bautista MD : 1950 BED: 1 DIS: 03/14/2021 SPEC #: [id number] RECD: 03/13/21 13:18 STATUS: ALEXEI SNEEDRoshni #: [id number] ZHEN: 03/13/21 11:[address]: Elmo Velásquez DEPT: SURGICAL PATHOLOGY RECD BY: Chu Pugh ENTERED: 03/13/21 13:25 SP TYPE: TOTAL HIP OTHR DR: Dr. Damian Craig MD Tissues: Hip, NOS Procedures: Decalcification bone/plaque Surgery Specimen Level IV HEADER OPERATION: ERAS, total hip anterior approach PRE-OP DIAGNOSIS: Severe right hip osteoarthritis TISSUE SUBMITTED: Right hip bone and soft tissue MICROSCOPIC DIAGNOSIS Bone and soft tissue of right hip, total hip resection: Severe degenerative joint disease. Trilineage hematopoiesis. AM:yvonne 03/18/2021 MICROSCOPIC DESCRIPTION Slides are reviewed. GROSS DESCRIPTION Received is one container labeled with the patient's name and designated right hip bone and soft tissue. The specimen consists of a steward femoral head measuring 4.5 x 4.5 x 4 cm. The articular surface displays prominent osteophyte formation, eburnation and bone erosion. Also present in the specimen container is a detached piece of bone consistent with portion of femoral neck measuring 4 x 3 x 1.2 cm. The soft tissue measures in aggregate 7 x 7 x 3 cm. Aircraft Quality Control Inspector sections are submitted in two cassettes as follows: 1 - soft tissue, 2 - bone after decalcification. / SJ:yvonne 03/13/21 TC:5 [facility]: [id number], [id number]
--- NOTE | 2021-03-13 11:00 | RAD_ITS ---
STUDY: X-RAY - PELVIS AND RIGHT HIP REASON FOR EXAM: Female, 71 years old. PAIN TECHNIQUE: 1 views of the pelvis and hip. COMPARISON: None. FINDINGS: The patient is status post right total hip replacement. There is good alignment. RAD/Hip 1 view with Pelvis IMPRESSION: Status post right total hip replacement. There is good alignment. Electronically Signed: Xavier Crane MD at 12:05 EDT , Service support ,
[2021-03-13 11:05] LABS: Bedside Glucose 69 mg/dL (70-110)
[2021-03-13 11:16] LABS: INR Fingerstick 1.7; Prothrombin Time Fingerstick 20.1 SEC (11.9-14.4)
--- NOTE | 2021-03-13 13:00 | RAD_ITS ---
STUDY: X-RAY - PELVIS AND RIGHT HIP REASON FOR EXAM: Female, 71 years old. Post Op -- AP both hips on single ronny/lateral of op hip PACU TECHNIQUE: 2 views of the pelvis and hip. COMPARISON: None. FINDINGS: The patient is status post right total hip replacement. There is good alignment. Postoperative soft tissue changes. RAD/Hip Min 2 Views (Portable) IMPRESSION: Status post right total hip replacement. There is good alignment. Postoperative soft tissue changes. Electronically Signed: Xavier Crane MD at 13:30 EDT , Service support ,
[2021-03-13] MEDS: Lactated Ringers 1,000 ML 125 ML IV (13:40)
[2021-03-13] MEDS: Ensure Surgery 237 ML LIQUID PO (16:29)
--- NOTE | 2021-03-13 16:41 | PN.HOSP_ITS ---
Subjective Subjective Status post right anterior total hip replacement. Currently feeling well at this time. Objective Data Objective Data Vital Signs: Vital Signs Temp Pulse Resp BP Pulse Ox 36.4 C L 73 16 143/70 H 96 03/13/21 16:02 03/13/21 16:02 03/13/21 16:02 03/13/21 16:02 03/13/21 16:02 Oxygen Flow Rate (L/min) 6 Oxygen Delivery Method Room Air Weight: 94 kg Body Mass Index (BMI) 36.1 Intake & Output: Intake and Output for Last 24 Hours 03/11/21 03/12/21 03/13/21 23:59 23:59 23:59 Intake Total 3335.5 / 3335.5 Balance 3335.5 / 3335.5 Lab / Micro Data Result Diagrams: 03/07/21 11:06 03/07/21 11:06 Labs: Laboratory Results - last 24 hr 03/13/21 03/13/21 03/13/21 08:41 08:44 09:22 POC PT 20.1 H PT 13.2 INR 1.7 1.1 POC Glucose 69 L Micro: Microbiology 03/07/21 11:06 Nasal Secretion Nasal Screen MRSA/MSSA - Final Radiography Diagnostic Testing: Radiology Impression Hip X-Ray 03/13/21 13:00 IMPRESSION: Status post right total hip replacement. There is good alignment. Postoperative soft tissue changes. Electronically Signed: Xavier Crane MD at 13:30 EDT , Service support , Physical Exam Const alert and oriented x3 Neck no lymphadenopathy Resp normal respiratory effort Cardio regular rate, regular rhythm, S1 normal heart sound and S2 normal heart sound GI normal to inspection, nondistended, normoactive bowel sounds, non-tender and non-distended Extremity normal to inspection Assessment & Plan Assessment/Plan (1) Paroxysmal atrial fibrillation: PLAN: 1. Paroxysmal atrial fibrillation * Currently rate controlled * Continue with metoprolol tartrate as well as anticoagulation with warfarin 2. Status post right hip replacement * Management per orthopedics 3. VTE prophylaxis: Patient currently on warfarin. Charges/Coding Visit Charges Inpatient E&M: 07463 Subs Hosp L2
[2021-03-13] MEDS: Senna/Docusate Sodium 1 Tablet 2 TABLET PO (21:15)
[2021-03-13] MEDS: Metoprolol Tartrate 25 MG Tablet PO (21:15)
[2021-03-13] MEDS: Cefazolin 1 GM/50 ML BAG IV (21:15)
[2021-03-13] MEDS: PARoxetine 10 MG Tablet 30 MG PO (21:26)
[2021-03-14] MEDS: oxyCODONE 5 MG Tablet 2.5 MG PO (01:58)
[2021-03-14 02:14] VITALS: BP 115/42; PULSE 63; RESP 16; TEMP 36.8; O2SAT 96
--- NOTE | 2021-03-14 05:59 | PN.ORTHO_ITS ---
Subjective Subjective 71-year-old female. 1 day status post right total hip replacement. Overall she is doing well. She notes she is more thigh discomfort this morning than last evening. Some numbness over the lateral thigh. No numbness and tingling distally. No shortness of breath or chest pain. She was able to get up to the chair for couple hours last evening. She is been happy with her progress so far. Objective Data Objective Data Vital Signs: Vital Signs Temp Pulse Resp BP Pulse Ox 98.3 F 63 16 115/42 L 96 03/14/21 02:14 03/14/21 02:14 03/14/21 02:14 03/14/21 02:14 03/14/21 02:14 Oxygen Flow Rate (L/min) 6 Oxygen Delivery Method Room Air Weight: 207 lb 3.752 oz Body Mass Index (BMI) 36.1 Intake & Output: Intake and Output for Last 24 Hours 03/12/21 03/13/21 03/14/21 23:59 23:59 23:59 Intake Total 4385.5 / 4985.5 600 / 600 Balance 4385.5 / 4985.5 600 / 600 Lab / Micro Data Result Diagrams: 03/07/21 11:06 03/07/21 11:06 Labs: Laboratory Results - last 24 hr 03/13/21 03/13/21 03/13/21 08:41 08:44 09:22 POC PT 20.1 H PT 13.2 INR 1.7 1.1 POC Glucose 69 L Micro: Microbiology 03/07/21 11:06 Nasal Secretion Nasal Screen MRSA/MSSA - Final Radiography Diagnostic Testing: Radiology Impression Hip X-Ray 03/13/21 13:00 IMPRESSION: Status post right total hip replacement. There is good alignment. Postoperative soft tissue changes. Electronically Signed: Xavier Crane MD at 13:30 EDT , Service support , Personally reviewed x-rays and agree Physical Exam Narrative Alert and oriented x3. Appears well this morning. No acute distress. Extremity Extremity Narrative: Right lower extremity: Dressing is clean dry and intact Sensations intact to light touch saphenous, sural, superficial peroneal, deep peroneal, and tibial distributions Motors intact EHL, DF, PF calves are soft and supple thigh is soft and supple, Mild ecchymosis laterally. Assessment & Plan Assessment/Plan (1) Anticoagulant long-term use: PLAN: Patient is restarted on her Coumadin postoperatively. She is been given 2 weeks of Eliquis at home. She will be given Xarelto here in the hospital. I have encouraged her to follow-up with her PCP in 3 to 4 days for INR check. I think it is very possible she can discontinue the Eliquis prior to the full 2 weeks when she is adequately bridged. (2) Paroxysmal atrial fibrillation: PLAN: Medically managed and stable. Anticoagulation addressed as above. (3) Status post total hip replacement, right: PLAN: Pain control: Continue current regimen. Patient doing well with Tylenol and oxycodone. No anti-inflammatory secondary to anticoagulation therapy. DVT prophylaxis: Coumadin with Eliquis bridging. Have recommended follow-up with her PCP to check INR and discontinue bridging as soon as appropriate. Therapy: Weightbearing as tolerated, activity as tolerated, anterior precau tions. Medical management: Medical comorbidities are well managed. Appreciate hospitalist service involvement in this patient. Laboratories: Pending at this time will follow and make adjustments as n ecessary. Disposition: Patient is doing well this morning. We will plan on discharge home after therapy today. Patient can discontinue her dressing 5 days postoperatively. First physical therapy is scheduled for March 18. [facility] Office:
[2021-03-14 06:03] VITALS: BP 130/49; PULSE 63; RESP 16; TEMP 36.7; O2SAT 96
[2021-03-14] MEDS: Acetaminophen 500 MG Tablet 1000 MG PO (06:05)
[2021-03-14] MEDS: Cefazolin 1 GM/50 ML BAG IV (06:06)
--- NOTE | 2021-03-14 06:06 | PCM.DC.SUM ---
Providers Date of Admission: 03/13/21 Primary Care Physician: Dr. Damian Craig MD Consultations 03/13/21 07:36 Consult: Hospitalist Routine Consulting Provider: Damian Chase Reason for Consult: post op med management EMERGENT Consult: No MD Notified: Yes Date Notified: 03/13/21 Time Notified: 15:53 Method of Notification: Text Reason For Visit: RT TOTAL ANTERIOR HIP Diagnosis Discharge Diagnosis (1) Anticoagulant long-term use: Status: Chronic Code(s): Z79.01 - long term acute care registered nurse (current) use of anticoagulants (2) Paroxysmal atrial fibrillation: Status: Chronic Code(s): I48.0 - Paroxysmal atrial fibrillation (3) Status post total hip replacement, right: Status: Acute Code(s): Z96.641 - Presence of right artificial hip joint Medications at Discharge Home Medications metoprolol tartrate 25 mg tablet 25 mg PO BID 11/19/20 paroxetine HCl 30 mg tablet 30 mg PO DAILY 12/11/20 magnesium oxide 400 mg PO DAILY tablet 01/03/21 warfarin 3 mg tablet 3 mg PO .COMPLEX #90 tablet 01/24/21 calcium carbonate-vitamin D3 [Calcium 600 + D(3)] 1 cap PO DAILY 02/26/21 omega-3 fatty acids [[place] 3 Fish Oil] 1,250 mg PO DAILY 02/26/21 vitamin B complex 1 tab PO DAILY 02/26/21 Weight / BMI Weight Weight: 207 lb 3.752 oz Body Mass Index (BMI) 36.1 ABG / Lab / Microbiology Data Result Diagrams: 03/07/21 11:06 03/07/21 11:06 Laboratory: Laboratory Results - last 24 hr 03/13/21 03/13/21 03/13/21 08:41 08:44 09:22 POC PT 20.1 H PT 13.2 INR 1.7 1.1 POC Glucose 69 L Microbiology: Microbiology 03/07/21 11:06 Nasal Secretion Nasal Screen MRSA/MSSA - Final Radiography Diagnostic Testing: Radiology Impression Hip X-Ray 03/13/21 13:00 IMPRESSION: Status post right total hip replacement. There is good alignment. Postoperative soft tissue changes. Electronically Signed: Xavier Crane MD at 13:30 EDT , Service support , D/C Instructions Discharge Diet: No restrictions Discharge Activity: May Not Drive May shower in (days): 1 (With back to shower) May resume sexual activity in: 6-8 weeks Ice area for (Minutes): 20 (every hour while awake.) Weight Bearing Status: Weight bearing as tolerated Keep extremity elevated above heart level: Operative Extremity Additional Activity Instructions: Wear elastic stockings for 2 weeks after your surgery. Call your doctor if your incision/area has: Continuous Slow Oozing, Sudden Increased Bleeding, Increased Pain/ Swelling, Increased Redness and Foul Smelling Discharge Call your doctor if you observe: Fever of 101 or Higher, Coldness, Increased Pain, Numbness or Tingling, Change in Color, Calf discomfort and Uncontrolled pain Change Dressing in: do not change dressing (and daily as needed.) Remove Dressing in: 5 days Additional Dressing/Incision Instructions: If incision is clean dry and intact may leave the wound open to air and continue showering. If there is continued drainage continue daily dry dressing changes and keep incision clean dry and intact until there is no drainage. Please Follow Up With: Elmo Velásquez MD When: 02/14/2021 Discharge Plan Admission Admit Date/Time: 03/13/21 15:59 Primary Reason for Your Visit: Right total hip replacement Attending Provider: Elmo Velásquez Primary Care Provider: Damian Craig Consulting Providers: Damian Chase Discharge Orders/Prescriptions Prescriptions: No Action metoprolol tartrate 25 mg tablet 25 mg PO BID RF: 0 magnesium oxide 400 mg magnesium tablet 400 mg PO DAILY RF: 0 paroxetine HCl 30 mg tablet 30 mg PO DAILY RF: 0 warfarin 3 mg tablet 3 mg PO .COMPLEX Qty: 90 RF: 11 vitamin B complex Tablet 1 tab PO DAILY RF: 0 [place] 3 Fish Oil Capsule 1,250 mg PO DAILY RF: 0 Calcium 600 + D(3) 600 mg calcium- 200 unit Capsule 1 cap PO DAILY RF: 0 Referrals / Follow Up: Damian Craig MD [Primary Care Provider] -
[2021-03-14] MEDS: Rivaroxaban 10 MG Tablet PO (06:08)
--- NOTE | 2021-03-14 06:09 | PCM.DC ---
Discharge Instructions Activity Discharge Activity: May Not Drive (while taking narcotic pain medications.) May shower in (days): 1 (Turned back to water shower did not directly run water over the dressing. Do NOT soak/submerge in tub/pool/gutierrez/stream/hot tub.) Additional Activity Instructions:: Wear elastic stockings for 2 weeks. DO NOT use alcohol with narcotic pain medication. DO NOT make important decisions while taking narcotic medication. If you have problems with taking your medication (rash, itching, nausea, etc.) call the office at once. Dressing / Incision Call your doctor if your incision/area has: Increased Redness and Foul Smelling Discharge Call your doctor if you observe: Fever of 101 or Higher Remove Dressing in: 5 days Additional Dressing/Incision Instructions:: If incision is clean dry and intact may leave the wound open to air and continue showering. If there is continued drainage continue daily dry dressing changes and keep incision clean dry and intact until there is no drainage. Follow Up Care Please Follow Up With: Amilcar Michaud PA-C When: 03-27-2021 10 ;00 Test Results: Test results from this visit will be discussed in further detail at your follow-up appointment, if applicable. Discharge Plan Admission Admit Date/Time: 03/13/21 15:59 Primary Reason for Your Visit: Right total hip replacement Attending Provider: Elmo Velásquez Primary Care Provider: Damian Craig Consulting Providers: Damian Chase Discharge Orders/Prescriptions Prescriptions: New acetaminophen 500 mg Tablet 1,000 mg PO Q8 Qty: 0 RF: 0 famotidine 20 mg Tablet 20 mg PO DAILY 30 Days Qty: 30 RF: 0 Ensure Surgery 0.08-1.4 gram-kcal/mL Liquid 237 ml PO TIDCM Qty: 0 RF: 0 sennosides-docusate sodium [Stool Softener-Stimulant Laxat] 8.6-50 mg Tablet 2 tab PO BID 5 Days Qty: 10 RF: 0 warfarin [Jantoven] 3 mg Tablet 3 mg PO Sharma@1700 Qty: 0 RF: 0 oxycodone 5 mg Tablet 5 - 10 mg PO Q4H PRN PRN (Reason: Pain Score 4-10) 5 Days Qty: 40 RF: 0 Continued metoprolol tartrate 25 mg tablet 25 mg PO BID RF: 0 magnesium oxide 400 mg magnesium tablet 400 mg PO DAILY RF: 0 paroxetine HCl 30 mg tablet 30 mg PO DAILY RF: 0 warfarin 3 mg tablet 3 mg PO .COMPLEX Qty: 90 RF: 11 Calcium 600 + D(3) 600 mg calcium- 200 unit Capsule 1 cap PO DAILY RF: 0 Held vitamin B complex Tablet 1 tab PO DAILY RF: 0 Hold Instructions: Resume on 03/27/21. omega-3 fatty acids Capsule 1,250 mg PO DAILY RF: 0 Hold Instructions: Resume on 03/27/21. Referrals / Follow Up: Damian Craig MD [Primary Care Provider] - (please f/u in 3-4 days to check INR and possible d/c eliquis)
[2021-03-14 06:16] LABS: Hematocrit 29.8 % (37-47); Hemoglobin 9.7 g/dL (12.0-15.0); Mean Corp Hgb Conc 32.6 g/dL (32-36); Mean Corpuscular Hgb 30.7 pg (27.0-32.0); Mean Corpuscular Volume 94.3 fL (81-99); Mean Platelet Vol. 9.6 fl (6.2-12.0); Platelet Count 130 K/mm3 (150-450); RBC Distribution Width CV 12.2 % (11.6-14.6); RBC Distribution Width SD 42.5 fl (35.1-43.9); Red Blood Count 3.16 M/mm3 (4.2-5.4); White Blood Count 8.8 K/mm3 (4.4-11.0)
[2021-03-14 06:29] LABS: International Normalized Ratio 1.2; Prothrombin Time (Protime)PT. 14.2 SECONDS (11.7-14.9)
[2021-03-14 06:38] LABS: Anion Gap 4 (5-15); BUN 15 mg/dL (7-18); BUN/Creat Ratio 29.5 RATIO (10-20); Calcium,Total 8.1 mg/dL (8.5-10.1); Chloride 109 mmol/L (98-107); Creatinine, Serum 0.51 mg/dL (0.55-1.02); EST Glomerular Filtration Rate 127 mL/min (>60); Est Glom Filt Rate - Afr Amer 154 mL/min (>60); Estimated Creatinine Clearance 43.92 ml/min; Glucose 114 mg/dL (74-106); Potassium 4.1 mmol/L (3.5-5.1); Sodium Level 138 mmol/L (136-145)
[2021-03-14] MEDS: Calcium Carb/Vitamin D 1 TABLET Tablet PO (08:20)
[2021-03-14] MEDS: Famotidine 20 MG Tablet PO (08:20)
[2021-03-14 08:21] VITALS: BP 130/49; PULSE 63
[2021-03-14] MEDS: Metoprolol Tartrate 25 MG Tablet PO (08:21)
[2021-03-14] MEDS: Ensure Surgery 237 ML LIQUID PO (08:26)
[2021-03-14] MEDS: Magnesium Chloride 64 MG Delay Rel.Tablet 128 MG PO (08:26)
--- NOTE | 2021-03-14 10:13 | PHA.DC.MC ---
Pharmacy Service has performed discharge medication reconciliation and counseling for this patient. The patient was counseled on the following discharge medications and changes in medications for homegoing were reviewed. 1. OXYCODONE 2. SENNA/DOCUSATE 3. TYLENOL 4. PEPCID The Reason for Use, instructions for use, and potential side effects were reviewed for all new medications. The patient's questions regarding all of their medications were answered. The patient was able to verbally demonstrate an understanding of their discharge medications. NOTE: Also discussed with the patient her warfarin and Eliquis bridging. Explained importance of following up with PCP, Dr. Craig, 3-4 days to have INR monitored so she would not have to be on her bridge therapy longer than necessary. Pt verbalized understanding. Home Medications metoprolol tartrate 25 mg tablet 25 mg PO BID 11/19/20 paroxetine HCl 30 mg tablet 30 mg PO DAILY 12/11/20 magnesium oxide 400 mg PO DAILY tablet 01/03/21 warfarin 3 mg tablet 3 mg PO .COMPLEX #90 tablet 01/24/21 Calcium 600 + D(3) 1 cap PO DAILY 02/26/21 omega-3 fatty acids 1,250 mg PO DAILY 02/26/21 vitamin B complex 1 tab PO DAILY 02/26/21 acetaminophen 1,000 mg PO Q8 #0 tab 03/14/21 famotidine 20 mg PO DAILY 30 Days #30 tab 03/14/21 nut.tx.comp. immune systm,reg [Ensure Surgery] 237 ml PO TIDCM #0 ml 03/14/21 oxycodone 5 - 10 mg PO Q4H PRN PRN 5 Days #40 tab 03/14/21 sennosides-docusate sodium [Stool Softener-Stimulant Laxat] 2 tab PO BID 5 Days #10 tab 03/14/21 warfarin [Jantoven] 3 mg PO Sharma@1700 #0 tab 03/14/21 The patient's discharge medication list was reviewed for discrepancies and discrepancies were resolved.
[2021-03-14 10:18] VITALS: BP 115/48; PULSE 77; RESP 16; TEMP 36.9; O2SAT 96
--- NOTE | 2021-03-14 10:35 | CASEMGMT ---
RN DEMI Face to Face with patient for initial transition planning/care coordination assessment. RN CM introduced self and role at [facility]. Patient sitting in chair, alert and oriented, at bedside. Patient willing to participate in assessment and is able to answer all questions appropriately. Care providers, pharmacy, and demographics verified. Patient wishes to discharge home and is setup with [facility] for outpatient therapy. Patient states she has no further needs or concerns at this time. CM to follow for discharge planning needs that may arise. PCP: Damian Craig Specialists: Amilcar vice president [employer] Preferred Pharmacy: [facility] Insurance: [facility], [facility] Prescription Benefit: yes Living Will/HPOA: yes, Kusum Singer LNOK: , daughter Living Arrangements: Patient lives with in a single story home with ramp to enter the home. Patient was independent at home prior to discharge. Transportation: DME/HHC: Ana states she has shower chair, grab bars, and walker. Patient is setup with [facility] for outpatient therapy starting Thursday. Disposition Plan: Patient to discharge home with family support and follow-up plans in place. Lucero COBB, RN, CM
--- NOTE | 2021-03-14 10:51 | PCM.PN.HOSP ---
Documented by User: Yoandy WORKMAN 03/14/21 10:57 Subjective Subjective Patient is a pleasant 71-year-old female comfortably resting in a chair, alert and orient x3. Patient denies chest pain, shortness of breath, palpitations, hemoptysis, sputum production, fever, chills, N/V/D. Objective Data Objective Data Vital Signs: Vital Signs Temp Pulse Resp BP Pulse Ox 98.5 F 77 16 115/48 L 96 03/14/21 10:18 03/14/21 10:18 03/14/21 10:18 03/14/21 10:18 03/14/21 10:18 Oxygen Flow Rate (L/min) 6 Oxygen Delivery Method Room Air Weight: 207 lb 3.752 oz Body Mass Index (BMI) 36.1 Intake & Output: Intake and Output for Last 24 Hours 03/12/21 03/13/21 03/14/21 23:59 23:59 23:59 Intake Total 4385.5 / 4985.5 1150 / 1150 Balance 4385.5 / 4985.5 1150 / 1150 Lab / Micro Data Result Diagrams: 03/14/21 05:46 03/14/21 05:46 Labs: Laboratory Results - last 24 hr 03/13/21 03/13/21 03/14/21 08:41 09:22 05:46 WBC 8.8 RBC 3.16 L Hgb 9.7 L Hct 29.8 L MCV 94.3 MCH 30.7 MCHC 32.6 RDW Std Deviation 42.5 RDW Coeff of Marielos 12.2 Plt Count 130 L MPV 9.6 POC PT 20.1 H PT INR 1.7 Sodium Potassium Chloride Carbon Dioxide Anion Gap BUN Creatinine Estim Creat Clear Calc Est GFR (MDRD) Af Amer Est GFR (MDRD) Non-Af BUN/Creatinine Ratio Glucose Calcium POC Glucose 69 L 03/14/21 03/14/21 05:46 05:46 WBC RBC Hgb Hct MCV MCH MCHC RDW Std Deviation RDW Coeff of Marielos Plt Count MPV POC PT PT 14.2 INR 1.2 Sodium 138 Potassium 4.1 Chloride 109 H Carbon Dioxide 25.0 Anion Gap 4 L BUN 15 Creatinine 0.51 L Estim Creat Clear Calc 43.92 Est GFR (MDRD) Af Amer 154 Est GFR (MDRD) Non-Af 127 BUN/Creatinine Ratio 29.5 H Glucose 114 H Calcium 8.1 L POC Glucose Micro: Microbiology 03/07/21 11:06 Nasal Secretion Nasal Screen MRSA/MSSA - Final Radiography Diagnostic Testing: Radiology Impression Hip X-Ray 03/13/21 13:00 IMPRESSION: Status post right total hip replacement. There is good alignment. Postoperative soft tissue changes. Electronically Signed: Xavier Crane MD at 13:30 EDT , Service support , Physical Exam Narrative See subjective. Const alert, oriented x3 and no apparent distress HEENT head/scalp atraumatic and moist oral mucous membranes Head and Scalp: normocephalic Eyes PERRL, EOMs intact bilaterally and conjunctivae normal Neck no lymphadenopathy, supple and no JVD Resp normal respiratory effort, no retractions, no use of accessory muscles and clear to auscultation bilaterally Cardio regular rate, regular rhythm, no murmurs and no JVD GI normal to inspection, nondistended, normoactive bowel sounds, soft to palpation, non-tender and non-distended Extremity normal to inspection, full ROM and no clubbing, cyanosis or edema Skin no rashes or lesions noted, no wounds and skin turgor normal Neuro CN's II-XII intact bilaterally Psych affect normal Assessment & Plan Assessment/Plan (1) Paroxysmal atrial fibrillation: (2) Status post total hip replacement, right: (3) Anticoagulant long-term use: PLAN: See subjective for patient presentation. This provider saw this patient on consult from orthopedics status post right anterior total hip replacement conducted on 03/13/2021. Patient to be discharged home today, per orthopedics. 1) paroxysmal atrial fibrillation. Rate currently controlled. Continue home metoprolol and warfarin. 2) status post right hip arthroplasty Surgical management indicated for right hip primary osteoarthritis. Management per orthopedics, follow-up appointment on 03/27/2021. Discharge home today. Patient seen by Yoandy Houston PA-C, under the supervision of Dr. Bautista. Documented by User: Dr. Lakshmi Bautista MD 03/14/21 17:12 Objective Data Lab / Micro Data Result Diagrams: 03/14/21 05:46 03/14/21 05:46 Charges/Coding Addendum Addendum: This patient was seen in conjunction with JACINTA Figueroa. I have independently interviewed and examined the patient and reviewed pertinent historical, laboratory, and other data. Please refer to JACINTA Figueroa's note for his patient's presentation, findings, and recommendations. I have reviewed and his note and concur with his documentation Patient was seen and examined. She feels improved. Denied any chest pain or dyspnea palpitation. She has been discharge Physical Exam: Gen:Comfortable, not pale, not jaundiced CVS:HS I +II, regular, no murmurs RESP: Diminished at lung bases GI: BS present and normal, soft, nontender, no palpable organs EXT:No edema ASSESSMENT: 1. Postop day 1 status post right hip arthroplasty 2. Paroxysmal atrial fibrillation Plan: Home Meds reviewed?continue Follow-up with orthopedic surgery recommendations Visit Charges Inpatient E&M: 09731 Subs Hosp L2
== END 2021-03-14 10:43 | disposition home or self-care (01) ==
LOC: MS3 15:59
PROVIDERS: Admitting Provider Specialist; PCP Family Medicine; Referring Provider Specialist; Visit Provider Internal Medicine
PROC: (CPT 27284; principal; 2021-03-13 10:35)
DX: M16.0 Bilateral primary osteoarthritis of hip (principal); I10 Essential (primary) hypertension; I48.0 Paroxysmal atrial fibrillation; Z79.01 Long term (current) use of anticoagulants; Z87.891 Personal history of nicotine dependence; Z79.899 Other long term (current) drug therapy
CPT/HCPCS: 01214; 27130; 36415; 36416; 73501; 73502; 76000; 80048; 82962; 83735; 85025; 85027; 85610; 87081; 88305; 88311; 96361; 96365; 96366; 97110; 97162; 97166; 97530; 99218; 99251; C1776; J7120; A4216; G0378; G0379; G0463

== ENCOUNTER 2021-05-08 13:32 | Observation (INO) | payer MEDICARE, OTHER, SELFPAY ==
[2021-01-03 10:34] VITALS: BMI 35.0
[2021-03-13 16:01] VITALS: BMI 36.1
--- NOTE | 2021-04-23 05:07 | PCM.HP.BLA ---
History and Physical History and Physical [facility] Patient Name: Joselin Singer : 1950 From: TUYET ANDERSON PA-C DATE OF SURGERY: 05/08/2021 SCHEDULED PROCEDURE: left total hip arthroplasty HISTORY OF PRESENT ILLNESS: Dictating on a 71-year-old female who is had bilateral hip pain for several years. She recently on March 13, 2021 underwent a right total hip arthroplasty and is doing well. She continues to complain of left hip pain. Pain is increased with going up and down stairs and walking. Pain can reach his high as a 6/10. She does have start up pain. She has difficulty with activities of daily living including shopping as well as leisure activity such as walking for exercise. Pain does occasionally wake her at night. She gets pain into the thigh. She has increased groin pain with activities on the left. Patient has difficulty putting on her socks and shoes. Patient has been through physical therapy and home exercises with no relief in symptoms. She has tried Tylenol for pain control. She is unable to use nonsteroidal anti-inflammatories due to her Coumadin use. She uses a cane for ambulatory assistance. Denies previous surgery on the left hip. Patient has medical history pertinent for atrial ablation in which she currently takes Coumadin. Patient also has hypertension. Currently denies any chest pain, shortness of breath, fevers chills or recent infections. We have obtain surgical clearance from the infant lead teacher Dr. Fitzgerald and will be asking for input on bridging if required. After failing conservative measures and discussing treatment options with Dr. Elmo Velásquez, the patient does wish to proceed with a left total hip arthroplasty. REVIEW OF SYSTEMS: ROS: Const: Reports weight change, but denies change in appetite and fever. CV: Reports irregular heartbeat, but denies chest pain and heart murmur. Resp: Denies cough, pneumonia, shortness of breath, tuberculosis and wheezing. GI: Denies constipation, diarrhea, heartburn, nausea, rectal itching, bloody stools and vomiting. : Reports incontinence. Musculo: Reports trouble walking and weakness, but denies leg swelling and pain. Skin: Denies Raynaud's, history of shingles and tattoo. Neuro: Denies ambulatory dysfunction, dizziness, numbness/tingling and tremor. Psych: Reports anxiety, but denies insomnia and stress. Eamon/Lymph: Denies anemia, bleeding/bruising tendency and past transfusion. Reviewed, no changes. PAST MEDICAL HISTORY: Advance Care Plan: Other Directive, POA Effective Date: 01/09/2021 Other Directive, LIVING WILL Effective Date: 01/09/2021 PMH: Medical Problems: Arthritis, Hard of Hearing, High Blood Pressure Covid-19 Vaccinated - (12/20/2020)(01/17/2021) A-Fib Accidents: None Surgical Hx: Hysterectomy, Tonsillectomy, Tubal Ligation Hip Replacement RT - (03/13/2021) SAW @ [facility] Anesthesia Complications: None Assistive Devices: Glasses Reviewed, no changes. SOCIAL HISTORY: SH: Marital: .Occupation: Retired.Work Status: Retired.Hand Dominance: Left-handed. Personal Habits: Cigarette Use: Former.Smokeless Tobacco: Never Used Smokeless Tobacco.E-Cigarette Use: Never used.Alcohol: Denies use.Drug Use: Denies Use.Enjoy Exercising: Never Exercises. Reviewed, no changes. VITALS: Ht: 65.5 Wt: 208lb Wt k.349 BMI: 34.1 BP: 120/68 Pulse: 71 Resp: 20 T: 97.8 T: 36.6C Pain Level: 0 ALLERGIES: No Known Drug Allergy MEDICATIONS: Warfarin Sodium 3 mg 1 daily, Metoprolol Tartrate 25 mg 1 by mouth twice a day, Paroxetine HCL 30 mg 1 by mouth every day, Tylenol 8 Hour Arthritis Pain 650 mg every 4 hour as needed pain PRE-OP EXAM: General appearance:NORMAL Other: Eyes: Conjunctivae and lids: NORMAL Pupils: ERR Ears, Nose, Mouth, and Throat: NORMAL Other: Inspection of lips, teeth and gums: NORMAL Other: Neck: Examination of neck: no masses noted. Respiratory: Assessment of respiratory effort: NORMAL Other: Auscultation of lungs: clear to auscultation no wheezes, rhonchi or rales. Cardiovascular: Auscultation of heart: regular rate and rhythm, no murmurs, gallops or rubs. Exam of carotid arteries: NORMAL Other: Gastrointestinal: Exam of abdomen: soft, nontender, nondistended bowel sounds present. PHYSICAL EXAMINATION: Patient continues to walk with an antalgic gait. She is doing well from the right postoperative hip with the incision well healed. She continues to complain of left groin pain with ambulation. Left hip obligatory external rotation with flexion to 60, internal rotation 10, external rotation 30 with increased pain. IMAGING STUDIES: Previous x-rays of the left hip reveal joint space narrowing with subchondral sclerosis, osteophyte formation consistent with severe stage IV severe osteoarthritis IMPRESSION: 1. Severe left hip osteoarthritis 2. Presence of right total hip arthroplasty 3. Atrial fibrillation currently on Coumadin 4. Hypertension PLAN: Dr. Elmo Velásquez did discuss and review with the patient all treatment options including surgical versus nonsurgical options. Patient does wish to proceed with the above-stated procedure. Potential risks, benefits, and complications of the procedure were discussed in detail including but not limited to , infection, nerve and blood vessel damage, persistent pain, numbness, tingling, paresthesias, blood clot, pulmonary embolism, and requirement for possible further surgery. The patient expressed full understanding and has no further questions for the doctor. Patient does agree to proceed with the above-stated procedure and has signed the surgery consent form. We discussed the current risks associated with COVID 19. This does include the risk of exposure while in the hospital. Patient was reassured local hospitals have low infection rates and are taking all necessary precautions to avoid exposure to patients. In addition, we discussed strategies that can be used to help limit exposure including those that limit the patient's time in the hospital. Also using strategies to limit the patient's need for continued inpatient services after being discharged from the hospital. Patient was notified that we will need to comply with any screening or testing the hospital wishes to perform or that surgery may be delayed for any positive results. This dictation was created using voice recognition software. Phonetic and/or grammatical errors may exist. ___ I have re-examined the patient. There are no clinical changes since date of exam. ___ See progress notes for changes. ___ Dictated on admission Date: Time: Signature:
[2021-05-08] VITALS (13 sets, daily range): BP systolic 104–137; BP diastolic 53–90; PULSE 57–88; RESP 16–18; TEMP 36–36.9; O2SAT 95–100; BMI 36.8
--- NOTE | 2021-05-08 07:15 | PCM.OPRPT ---
Report of Operation Date of Procedure: 05/08/21 Pre-Operative Diagnosis: Left hip primary osteoarthritis Post-Operative Diagnosis: Left hip primary osteoarthritis Surgery/Procedure Performed:: Left minimally invasive direct anterior hip replacement Description of Surgical Findings:: Stable hip with equal leg lengths Surgeon: Elmo Velásquez supplier quality manager: Amilcar Michaud Type of Anesthesia: Spinal Special Medications: 2 g Ancef, 1 g TXA at incision, 1 g TXA closure, 10 mg Decadron, joint cocktail (5 mg Duramorph, 30 mL of 0.5% Ropivicaine, 1000 units of epinephrine, 30 mg of Toradol) Specimen's removed: Bony cuts Estimated Blood Loss (mL): 350 Fluids Replaced: 1300 mL crystalloid Description of Procedure: Components used: 1. Accolade 2 Jass femoral stem size 4 132? 2. Jass trident 2 acetabular shell size 52 mm 3. [place] X3 polyethylene E 4. Jass Biolox delta 36 mm, -2.5 mm femoral head Brief history operative indications: 71yo female who failed conservative measures for their hip osteoarthritis. X-rays were consistent with osteoarthritis including joint space narrowing, osteophyte formation and subchondral cysts. Total hip replacement was discussed with the patient with risks and benefits including but not limited to blood loss, DVTs, PEs, neurovascular damage, dislocation, general risks of anesthesia including loss of life. Patient demonstrated an understanding medical clearance is obtained the patient was consented for surgery. Procedure: On the date of procedure the patient's L hip was marked in the preoperative area. Patient was then taken back to the operating room where anesthesia assumed control of the C-spine and airway and administered anesthetic. Patient was transferred to the operating table and placed in the supine position. The hips were placed at the break of the bed and a sacral bump was placed. L The lower extremity was then prepped out in a sterile fashion using chlorhexidine while the surgeon scrubbed. The PA was vital in the positioning of the patient. Upon reentering the room the left lower extremity was draped in the standard orthopedic fashion and the incision was marked. A timeout was called and everyone agreed upon the side, the site, the procedure be performed, antibody given, and patient's identity. At this time incision was made through skin, subcutaneous tissue, and fat down to fascia. The fascia was then incised and the TFL was retracted laterally. A retractor was placed on the lateral border of the femoral neck. Attention was directed to the inferior portion of the approach and all crossing vessels were identified and appropriately coagulated. A retractor was then placed on the medial portion of the femoral neck. The anterior capsule was then cleared of all soft tissue and then H shaped capsulotomy was made. The retractors were then placed inside the capsule. The femoral neck was identified and a cleanup cut was made. At this time a power corkscrew was used to remove the femoral head. Attention was then turned toward the acetabulum where the soft tissues were appropriately retracted and the acetabulum was sequentially reamed to 52 mm. A 52 mm cup was then selected and impacted into place. Acetabular liner was impacted into place and locking mechanism was verified. The position of the acetabular cup was then verified under live fluoroscopy. Attention was then turned to the femur. Soft tissue releases on the medial and lateral femoral neck were appropriately done, the leg was externally rotated and lateralized. A Baltazar retractor was placed medially and proximally to the greater trochanter this allowed appropriate visualization and exposure of the femoral canal. Rongeour was then used to remove excess lateral bone. A canal finder and entry broach were used to open the proximal canal. Once we verified we were down the femoral canal we subsequently broached up to a size 4 femur. The appropriate neck was placed in the previously selected head was trialed with a -2.5 mm neck. Traction was pulled and the hip was reduced with internal rotation. Once it was appropriately reduced and stability was checked. There was minimal shuck, equal leg lengths and appropriate stability with hyperextension and external rotation as well as with 90? flexion and internal rotation. Fluoroscopy was then also used to verify the position of the components and leg lengths using the contralateral side for comparison. The trial components were then dislocated the proximal femur was again exposed and the components were removed from the wound. The final components were verified and opened. The wound was copiously irrigated out with normal saline. The acetabulum was checked for any residual debris. The final components were placed and impacted. Traction and internal rotation were again used to reduce the hip. After adequate reduction the hip remained stable with appropriate leg lengths. The final components were once again checked with live fluoroscopy and were found to be satisfactory. The wound was then copiously irrigated with normal saline once more, and hemostasis was obtained. Closure was then done using #1 Vicryl runner to close the fascia. A 2-0 vicryl interuppted sutures were used to close the subcutaneous skin. A 3-0 Monocryl and Steri-Strips were used for final skin closure. A Silverlon dressing was placed. Patient was awakened by anesthesia and transferred to the [facility]. Patient was then transferred to the PACU for recovery. Postoperative plan: Patient will get 24 hours postop antibiotics. Patient will get in-house physical therapy and will be weight-bear as tolerated. Patient will follow up in office in 2 weeks for a wound check and x-rays. Patient will resume Coumadin tomorrow for her atrial fibrillation this will be used for DVT prophylaxis. Complications No intraoperative complications Admit VTE Documentation VTE Present on Admission: No VTE Mechan Device Prophylaxis: SCD's and Thigh High MARILYN Hose VTE Pharm Prophylaxis ordered?: Yes
--- NOTE | 2021-05-08 07:17 | RAD_ITS ---
STUDY: X-RAY - PELVIS AND LEFT HIP REASON FOR EXAM: Postoperative evaluation of left hip arthroplasty. TECHNIQUE: 2 views of the pelvis and hip. COMPARISON: Radiographs . FINDINGS: There is postoperative gas in the soft tissues. Normal bilateral iliac wings, sacroiliac joints and visualized sacrum. Normal bilateral superior and inferior pubic rami. Normal pubic symphysis. Normal bilateral ischial tuberosities. There is a left hip arthroplasty without evidence of complication. RAD/Hip Min 2 Views (Portable) IMPRESSION: Uncomplicated left hip arthroplasty. Electronically Signed: Jamie Shell MD at 14:20 EDT Tel , Service support ,
[2021-05-08] MEDS: Lactated Ringers 1,000 ML 75 ML IV (09:36)
[2021-05-08] MEDS: Acetaminophen 500 MG Tablet 1000 MG PO ×3 (09:37→23:00)
[2021-05-08] MEDS: Gabapentin 600 MG Tablet PO (09:37)
[2021-05-08 09:46] LABS: Bedside Glucose 63 mg/dL (70-110)
[2021-05-08 10:31] LABS: INR Fingerstick 1.3; Prothrombin Time Fingerstick 15.8 SEC (11.9-14.4)
[2021-05-08] MEDS: Cefazolin 2 GM in 0.9% Normal Saline 100 ML IV (11:15)
[2021-05-08] MEDS: dexAMETHasone 10 MG/ML Vial IV (11:32)
--- NOTE | 2021-05-08 12:10 | RAD_ITS ---
STUDY: X-RAY - PELVIS AND LEFT HIP REASON FOR EXAM: Intraoperative fluoroscopy for left hip arthroplasty. TECHNIQUE: 6 intraoperative images of the pelvis and hip. COMPARISON: Radiographs 03/13/2021. FINDINGS: There is a left hip arthroplasty without evidence of complication. 8.7 seconds of fluoroscopy time was used. Electronically Signed: Jamie Shell MD at 14:33 EDT Tel , Service support , RAD/Hip 1 view with Pelvis
[2021-05-08] MEDS: Lactated Ringers 1,000 ML 999 ML IV ×2 (12:40→14:31)
--- NOTE | 2021-05-08 15:54 | PCM.PN.HOSP ---
Subjective Subjective No pain at present. Objective Data Objective Data Vital Signs: Vital Signs Temp Pulse Resp BP Pulse Ox 36.5 C L 82 16 132/59 H 96 05/08/21 15:19 05/08/21 15:19 05/08/21 15:19 05/08/21 15:19 05/08/21 15:19 Oxygen Flow Rate (L/min) 6 Oxygen Delivery Method Room Air Weight: 94.2 kg Body Mass Index (BMI) 36.8 Intake & Output: Intake and Output for Last 24 Hours 05/06/21 05/07/21 05/08/21 23:59 23:59 23:59 Intake Total 2335.5 / 2335.5 Balance 2335.5 / 2335.5 Lab / Micro Data Labs: Laboratory Results - last 24 hr 05/08/21 09:01: POC PT 15.8 H, INR 1.3 05/08/21 09:13: POC Glucose 63 L Radiography Diagnostic Testing: Radiology Impression Hip X-Ray 05/08/21 07:17 IMPRESSION: Uncomplicated left hip arthroplasty. Electronically Signed: Jamie Shell MD at 14:20 EDT Tel , Service support , Hip/Pelvis X-Ray 05/08/21 12:10 Physical Exam Const alert and no apparent distress HEENT Head and Scalp: normocephalic Resp normal respiratory effort, no use of accessory muscles and clear to auscultation bilaterally Cardio regular rate, regular rhythm, S1 normal heart sound and S2 normal heart sound GI normal to inspection, nondistended, normoactive bowel sounds, soft to palpation, non-tender and non-distended Extremity Peripheral Pulses: Yes dorsalis pedis pulses present Skin no rashes or lesions noted Assessment & Plan Assessment/Plan (1) Paroxysmal atrial fibrillation: PLAN: 1. pafib NSR continue warfarin and metoprolol tartrate 2. s/p L hip replacment mgmt per orthopaedics 3. VTE prophylaxis: resumed on warfarin consider VTE prophylactic dosing of enoxaparin until INR greater than or equal to 2. Thank you for the consult. Will follow peripherally. Charges/Coding Visit Charges Inpatient E&M: 82938 Subs Hosp L2
[2021-05-08] MEDS: Famotidine 20 MG Tablet PO (16:39)
[2021-05-08] MEDS: Lactated Ringers 1,000 ML 125 ML IV (16:39)
[2021-05-08] MEDS: Cefazolin 1 GM/50 ML BAG IV (18:56)
[2021-05-08] MEDS: Metoprolol Tartrate 25 MG Tablet PO (20:51)
[2021-05-08] MEDS: Senna/Docusate Sodium 1 Tablet 2 TABLET PO (20:52)
[2021-05-08] MEDS: Paroxetine 20 MG Tablet PO (20:52)
[2021-05-09] MEDS: Cefazolin 1 GM/50 ML BAG IV (03:17)
[2021-05-09 03:19] VITALS: BP 111/53; PULSE 58; RESP 16; TEMP 36.6; O2SAT 98
[2021-05-09 05:42] LABS: Hematocrit 34.5 % (37-47); Hemoglobin 10.1 g/dL (12.0-15.0); Mean Corp Hgb Conc 29.3 g/dL (32-36); Mean Corpuscular Hgb 30.1 pg (27.0-32.0); Mean Platelet Vol. 9.6 fl (6.2-12.0); Platelet Count 147 K/mm3 (150-450); RBC Distribution Width SD 45.4 fl (35.1-43.9); Red Blood Count 3.35 M/mm3 (4.2-5.4); White Blood Count 8.5 K/mm3 (4.4-11.0)
[2021-05-09] MEDS: 0.9% Saline Lock 10 ML Syringe IV (05:53)
[2021-05-09] MEDS: Acetaminophen 500 MG Tablet 1000 MG PO (05:54)
[2021-05-09 05:55] VITALS: BP 142/57; PULSE 61; RESP 18; TEMP 36.7; O2SAT 100
[2021-05-09 06:01] LABS: Anion Gap 5 (5-15); BUN 17 mg/dL (7-18); BUN/Creat Ratio 34.6 RATIO (10-20); Calcium,Total 8.1 mg/dL (8.5-10.1); Chloride 106 mmol/L (98-107); Creatinine, Serum 0.49 mg/dL (0.55-1.02); EST Glomerular Filtration Rate 133 mL/min (>60); Est Glom Filt Rate - Afr Amer 161 mL/min (>60); Estimated Creatinine Clearance 41.99 ml/min; Glucose 127 mg/dL (74-106); Potassium 3.8 mmol/L (3.5-5.1); Sodium Level 138 mmol/L (136-145)
[2021-05-09 06:10] LABS: International Normalized Ratio 1.1; Prothrombin Time (Protime)PT. 13.6 SECONDS (11.7-14.9)
[2021-05-09] MEDS: Calcium Carb/Vitamin D 1 TABLET Tablet PO (08:10)
[2021-05-09] MEDS: Cholecalciferol (VIT D3) 25 MCG TABLET (1,000 UNITS) PO (08:10)
[2021-05-09] MEDS: Ensure Surgery 237 ML LIQUID PO ×2 (08:11→12:13)
[2021-05-09] MEDS: oxyCODONE 5 MG Tablet PO (09:15)
[2021-05-09 10:00] VITALS: BP 126/45; PULSE 82; RESP 16; TEMP 36.8; O2SAT 99
--- NOTE | 2021-05-09 10:24 | PCM.PN.ORT ---
Subjective Subjective The patient was sitting in bedside chair upon examination. Patient denies any chest pain, shortness of breath, dizziness, lightheadedness, nausea or vomiting, or calf pain. Pain is controlled on medications. No adverse overnight events. Overall patient is doing very well. Her pain is been well controlled. Patient does have history of atrial fibrillation and is currently on Coumadin. We did get clearance from typing office worker and primary care physician. They stated no bridging was required. She can resume her Coumadin postoperatively. She will need repeat INR check in 1 week. Objective Data Objective Data Vital Signs: Vital Signs Temp Pulse Resp BP Pulse Ox 98.0 F 61 18 142/57 H 100 05/09/21 05:55 05/09/21 05:55 05/09/21 05:55 05/09/21 05:55 05/09/21 05:55 Oxygen Flow Rate (L/min) 6 Oxygen Delivery Method Room Air Weight: 94.2 kg Body Mass Index (BMI) 36.8 Intake & Output: Intake and Output for Last 24 Hours 05/07/21 05/08/21 05/09/21 23:59 23:59 23:59 Intake Total 5006.25 / 5006.25 148.25 / 148.25 Balance 5006.25 / 5006.25 148.25 / 148.25 Lab / Micro Data Result Diagrams: 05/09/21 04:58 05/09/21 04:58 Labs: Laboratory Results - last 24 hr 05/08/21 09:01: POC PT 15.8 H, INR 1.3 05/09/21 04:58: WBC 8.5, RBC 3.35 L, Hgb 10.1 L, Hct 34.5 L, MCV 103.0 H, MCH 30.1, MCHC 29.3 L, RDW Std Deviation 45.4 H, RDW Coeff of Marielos 12.0, Plt Count 147 L, MPV 9.6 05/09/21 04:58: Sodium 138, Potassium 3.8, Chloride 106, Carbon Dioxide 27.0, Anion Gap 5, BUN 17, Creatinine 0.49 L, Estim Creat Clear Calc 41.99, Est GFR (MDRD) Af Amer 161, Est GFR (MDRD) Non-Af 133, BUN/Creatinine Ratio 34.6 H, Glucose 127 H, Calcium 8.1 L 05/09/21 04:58: PT 13.6, INR 1.1 Radiography Diagnostic Testing: Radiology Impression Hip X-Ray 05/08/21 07:17 IMPRESSION: Uncomplicated left hip arthroplasty. Electronically Signed: Jamie Shell MD at 14:20 EDT Tel , Service support , Hip/Pelvis X-Ray 05/08/21 12:10 Physical Exam Narrative Vital signs stable and afebrile. Patient is able to plantarflex and dorsiflex actively. Sensation is intact to light touch to saphenous, sural, superficial and deep peroneal, and tibial distribution. Dressing is clean dry and intact. Negative Homans bilaterally, negative signs and symptoms of DVT. Const alert, oriented x3 and no apparent distress Assessment & Plan Assessment/Plan (1) Status post total hip replacement, left: PLAN: 1. S/P left direct anterior total hip arthroplasty POD #1 2. Continue Pain Medications: Tylenol and oxycodone 3. DVT Prophylaxis: Patient is resuming her Coumadin as instructed and directed by outside provider. We reached out and they do not require any bridging postoperatively. She will need INR recheck in 1 week. 4. PT/OT: Weightbearing as tolerated 5. H & H: 10.1/34.5, asymptomatic. Postoperative anemia secondary to acute blood loss from surgery without any intra operative complications. 6. Continue postoperative medical management per medicine 7. Encouraged Incentive Spirometry 8. Disposition: Overall patient is doing well today and plan will be for discharge home later this afternoon. Medications will be E scribed to [facility]. She will resume Coumadin as instructed by outside provider in which no bridging was required. Patient will follow-up per postop instructions. I have reviewed the [place] Automated Rx Reporting System (OARRS) report for this patient for refill pattern and other prescriber involvement as part of the appropriate surveillance for the provision of acute and chronic controlled medications. The report was requested and reviewed on the date of this entry and was considered in the prescribing process.
--- NOTE | 2021-05-09 10:32 | PCM.DC ---
Discharge Instructions Diet Discharge Diet: No restrictions Activity Discharge Activity: May Not Drive (while taking narcotic pain medications.) May shower in (days): 1 (only if incision is dry and without drainage. Do NOT soak/submerge in tub/pool/gutierrez/stream/hot tub.)) Ice area for (Minutes): 20 (Every 1-2 hours while awake[address] place barrier between ice and skin.) Weight Bearing Status: Weight bearing as tolerated Keep extremity elevated above heart level: Operative Extremity Dressing / Incision Call your doctor if your incision/area has: Continuous Slow Oozing, Sudden Increased Bleeding, Increased Pain/ Swelling, Increased Redness and Foul Smelling Discharge Call your doctor if you observe: Fever of 101 or Higher, Shortness of breath, Chest pain, Calf discomfort and Uncontrolled pain Remove Dressing in: 4 days (Okay to remove dressing on May 13, 2021) Additional Dressing/Incision Instructions:: Follow [facility] Post-op Instructions. Once postoperative dressing has been removed, only use gentle soap and water over the incision. Do not use any ointments, Neosporin, salves, alcohol pads over the incision for 6 weeks postoperatively. Do not submerge underwater for 6 weeks postoperatively. Continue with MARILYN hose/elastic stockings for 2 weeks postoperatively. May remove at nighttime but needs to be placed back on the leg during the day. Do NOT use alcohol with narcotic pain medication. Do NOT make important decisions while taking narcotic medication. If you have problems with taking your medication (rash, itching, nausea, etc.) call the office at once. Follow Up Care Test Results: Test results from this visit will be discussed in further detail at your follow-up appointment, if applicable. Discharge Plan Admission Admit Date/Time: 05/08/21 13:32 Attending Provider: Elmo Velásquez Primary Care Provider: Damian Craig Consulting Providers: Damian Chase Discharge Orders/Prescriptions Prescriptions: New acetaminophen 500 mg Tablet 1,000 mg PO Q8 Qty: 100 RF: 0 oxycodone 5 mg Tablet 5 - 10 mg PO Q4H PRN PRN (Reason: Pain Score 4-10) 4 Days Qty: 42 RF: 0 sennosides-docusate sodium [Stool Softener-Stimulant Laxat] 8.6-50 mg Tablet 2 tab PO BID Qty: 14 RF: 0 Continued metoprolol tartrate 25 mg tablet 25 mg PO BID RF: 0 magnesium oxide 400 mg magnesium tablet 400 mg PO DAILY RF: 0 paroxetine HCl [Paxil] 30 mg tablet 20 mg PO DAILY RF: 0 vitamin B complex Tablet 1 tab PO DAILY RF: 0 Hold Instructions: Resume on 03/27/21. omega-3 fatty acids Capsule 1,250 mg PO DAILY RF: 0 Hold Instructions: Resume on 03/27/21. Calcium 600 + D(3) 600 mg calcium- 200 unit Capsule 1 cap PO DAILY RF: 0 warfarin 3 mg tablet 8 mg PO DAILY RF: 0 cholecalciferol (vitamin D3) [Vitamin D3] 25 mcg (1,000 unit) Capsule 25 mcg PO DAILY RF: 0 Discontinued acetaminophen 500 mg Tablet 1,000 mg PO Q8 Qty: 0 RF: 0 famotidine 20 mg Tablet 20 mg PO DAILY 30 Days Qty: 30 RF: 0 sennosides-docusate sodium [Stool Softener-Stimulant Laxat] 8.6-50 mg Tablet 2 tab PO BID 5 Days Qty: 10 RF: 0 oxycodone 5 mg Tablet 5 - 10 mg PO Q4H PRN PRN (Reason: Pain Score 4-10) 5 Days Qty: 40 RF: 0 Other Ambulatory Orders: MRSA/SAID SCREEN (PRE SURG) (Routine) Timeframe: 20210424 Facility: [facility] - Location: Laboratory Ordered By: Dr. Damian Vincent Basic Metabolic Profile (BMP) (Routine) Timeframe: 20210424 Facility: [facility] - Location: Laboratory Ordered By: Dr. Elmo Velásquez CBC W/Diff, Automated (Routine) Timeframe: 20210424 Facility: [facility] - Location: Laboratory Ordered By: Dr. Elmo Velásquez Magnesium (Routine) Timeframe: 20210424 Facility: [facility] - Location: Laboratory Ordered By: Dr. Elmo Velásquez Referrals / Follow Up: Damian Craig MD [Primary Care Provider] - Physical,Therapy [Other] - 05/13/21 9:00 am Shelly Solis PA [PHYSICIAN CABLE SPLICER ASSISTANT] - 05/21/21 8:45 am Disposition Disposition (needs filled in before D/C Order can be placed): Home, Self Care
[2021-05-09 10:52] VITALS: BP 126/46; PULSE 61
[2021-05-09] MEDS: Metoprolol Tartrate 25 MG Tablet PO (10:52)
[2021-05-09] MEDS: Magnesium Chloride 64 MG Delay Rel.Tablet 128 MG PO (10:52)
[2021-05-09] MEDS: Senna/Docusate Sodium 1 Tablet 2 TABLET PO (10:53)
[2021-05-09] MEDS: Famotidine 20 MG Tablet PO (10:53)
--- NOTE | 2021-05-09 11:25 | CASEMGMT ---
TEENA SIMMS Face to Face with patient for initial transition planning/care coordination assessment. RN DEMI introduced self and role at [facility]. Patient lying in bed, alert and oriented, family at bedside. Patient willing to participate in assessment and is able to answer all questions appropriately. Care providers, pharmacy, and demographics verified. Patient wishes to discharge home and is scheduled for outpatient therapy with [facility]. Patient states she has no further needs or concerns at this time. CM to follow for discharge planning needs that may arise. PCP: Rafa Specialists: khushi Velásquez; Amilcar grocery shopper Preferred Pharmacy: [facility] Insurance: [facility], [facility] Prescription Benefit: yes Living Will/HPOA: yes, Daughter Kusum Singer LNOK: , daughter Living Arrangements: Patient lives with in a single story home with no steps to enter. Patient states she was independent at home prior to surgery . Transportation: DME/HHC: Patient states she has walker, rollator, shower chair, raised toilet, and cane at home. No previous HHC or SNF. Patient is scheduled for outpatient therapy with [facility] on Thursday. Disposition Plan: Patient to discharge home with outpatient therapy, family support, and follow-up plans in place. Lucero COBB, RN, CM
--- NOTE | 2021-05-09 11:30 | CASEMGMT ---
TEENA SIMMS in to discuss SALAS form with patient. RN DEMI explained SALAS form to patient, patient voiced understanding. Patient signed SALAS form and filed in chart. Patient provided copy of signed SALAS form. Patient had no further questions or concerns at this time.
--- NOTE | 2021-05-09 12:44 | PCM.PN.HOSP ---
Subjective Subjective Feels good. Feels ready for discharge. Objective Data Objective Data Vital Signs: Vital Signs Temp Pulse Resp BP Pulse Ox 36.8 C 61 16 126/46 H 99 05/09/21 10:00 05/09/21 10:52 05/09/21 10:00 05/09/21 10:52 05/09/21 10:00 Oxygen Flow Rate (L/min) 6 Oxygen Delivery Method Room Air Weight: 94.2 kg Body Mass Index (BMI) 36.8 Intake & Output: Intake and Output for Last 24 Hours 05/07/21 05/08/21 05/09/21 23:59 23:59 23:59 Intake Total 5006.25 / 5006.25 148.25 / 148.25 Balance 5006.25 / 5006.25 148.25 / 148.25 Lab / Micro Data Result Diagrams: 05/09/21 04:58 05/09/21 04:58 Labs: Laboratory Results - last 24 hr 05/09/21 04:58: WBC 8.5, RBC 3.35 L, Hgb 10.1 L, Hct 34.5 L, MCV 103.0 H, MCH 30.1, MCHC 29.3 L, RDW Std Deviation 45.4 H, RDW Coeff of Marielos 12.0, Plt Count 147 L, MPV 9.6 05/09/21 04:58: Sodium 138, Potassium 3.8, Chloride 106, Carbon Dioxide 27.0, Anion Gap 5, BUN 17, Creatinine 0.49 L, Estim Creat Clear Calc 41.99, Est GFR (MDRD) Af Amer 161, Est GFR (MDRD) Non-Af 133, BUN/Creatinine Ratio 34.6 H, Glucose 127 H, Calcium 8.1 L 05/09/21 04:58: PT 13.6, INR 1.1 Radiography Diagnostic Testing: Radiology Impression Hip X-Ray 05/08/21 07:17 IMPRESSION: Uncomplicated left hip arthroplasty. Electronically Signed: Jamie Shell MD at 14:20 EDT Tel , Service support , Hip/Pelvis X-Ray 05/08/21 12:10 Physical Exam Const alert Constitutional Narrative: up in chair. non-toxic. Psych affect normal Assessment & Plan Assessment/Plan (1) Paroxysmal atrial fibrillation: PLAN: 1. pafib NSR continue warfarin and metoprolol tartrate 2. s/p L hip replacment mgmt per orthopaedics 3. VTE prophylaxis: resumed on warfarin consider VTE prophylactic dosing of enoxaparin until INR greater than or equal to 2. Medically stable for Discharge. Will sign off. Call with questions. BASILIA Michaud. Charges/Coding Visit Charges Inpatient E&M: 18235 Subs Hosp L1
== END 2021-05-09 13:58 | disposition home or self-care (01) ==
LOC: SDC 13:33 → MS3 13:33
PROVIDERS: Admitting Provider Specialist; PCP Family Medicine; Referring Provider Specialist; Visit Provider Specialist
PROC: (CPT 27284; principal; 2021-05-08 10:50)
DX: M16.12 Unilateral primary osteoarthritis, left hip (principal); I10 Essential (primary) hypertension; Z79.01 Long term (current) use of anticoagulants; Z79.899 Other long term (current) drug therapy; I48.0 Paroxysmal atrial fibrillation; F41.9 Anxiety disorder, unspecified; N39.3 Stress incontinence (female) (male); E66.9 Obesity, unspecified; Z68.36 Body mass index [BMI] 36.0-36.9, adult
CPT/HCPCS: 01214; 27130; 36415; 36416; 73501; 73502; 76000; 80048; 82962; 85027; 85610; 96365; 96366; 97110; 97116; 97162; 97166; 97535; 99218; 99251; C1776; J7120; A4216; G0378; G0463; J2405

== ENCOUNTER → 2021-06-26 10:39 | Outpatient (CLI) | payer MEDICARE, OTHER, SELFPAY ==
[2021-06-26 12:14] LABS: Hematocrit 43.5 % (37-47); Hemoglobin 13.3 g/dL (12.0-15.0); Mean Corp Hgb Conc 30.6 g/dL (32-36); Mean Corpuscular Hgb 28.9 pg (27.0-32.0); Mean Corpuscular Volume 94.6 fL (81-99); Mean Platelet Vol. 9.4 fl (6.2-12.0); Platelet Count 247 K/mm3 (150-450); RBC Distribution Width CV 12.9 % (11.6-14.6); RBC Distribution Width SD 44.7 fl (35.1-43.9); White Blood Count 6.9 K/mm3 (4.4-11.0)
[2021-06-26 12:40] LABS: ALB/GLOB Ratio 0.7 RATIO (0.9-2.4); AST(SGOT) 15 U/L (15-37); Alanine Aminotransfer ALT/SGPT 29 U/L (13-56); Albumin, Serum 2.9 g/dL (3.2-5.0); Alkaline Phosphatase 126 U/L (45-117); Anion Gap 4 (5-15); BUN 16 mg/dL (7-18); BUN/Creat Ratio 30.7 RATIO (10-20); CRP 2.96 mg/L (0.0-3.0); Calcium,Total 8.6 mg/dL (8.5-10.1); Chloride 105 mmol/L (98-107); Creatinine, Serum 0.52 mg/dL (0.55-1.02); EST Glomerular Filtration Rate 124 mL/min (>60); Est Glom Filt Rate - Afr Amer 150 mL/min (>60); Ferritin 104 ng/mL (8-252); Glucose 74 mg/dL (74-106); Potassium 3.8 mmol/L (3.5-5.1); Protein, Total 6.9 g/dL (6.4-8.2); Sodium Level 137 mmol/L (136-145)
[2021-06-26 12:41] LABS: Vitamin B12 354 pg/mL (211-911); Vitamin D,25 Hydroxy 44.6 ng/mL
== END ==
PROVIDERS: PCP Family Medicine; Referring Provider Family Medicine; Visit Provider Family Medicine
DX: E55.9 Vitamin D deficiency, unspecified (principal); R53.83 Other fatigue; Z79.01 Long term (current) use of anticoagulants
CPT/HCPCS: 36415; 80053; 82306; 82607; 82728; 82746; 84443; 85027; 86140

== ENCOUNTER 2021-11-12 08:22 | Outpatient (CLI) | payer MEDICARE, OTHER, SELFPAY ==
--- NOTE | 2021-11-12 08:24 | BI_ITS ---
MAMMOGRAPHY - BILATERAL SCREENING REASON FOR EXAM: Female, 71 years old. Routine annual screening examination. PERTINENT HISTORY: Grandmother with breast cancer. Remote left stereotactic breast biopsy. TECHNIQUE: Digital bilateral breast jenny (3D mammographic acquisition) in the CC and MLO projections. 2-D mediolateral oblique (MLO) and craniocaudad (CC) views of both breasts were obtained. CAD: Full Field Digital Mammography with Computer Added Detection was performed. COMPARISON: Comparison is made with prior study 06/01/2019 and 02/09/2018. FINDINGS: Breast Composition: The breasts are almost entirely fatty. There are no dominant masses or suspicious calcifications. A tissue clip marker is once again seen in the upper lateral aspect of the left breast. This is unchanged. Stable small benign-appearing bilateral axillary lymph nodes. No other significant abnormalities are identified. There has been no significant change since the prior study. BI/SCREENING MAMM (CAD), BILAT IMPRESSION: Stable bilateral screening mammogram. Yearly follow-up mammogram recommended. (A) ASSESSMENT CATEGORY: BIRADS Category 2: Benign. A letter regarding these results will be sent to the patient by the facility within 30 days. Approximately 10% of breast cancers are not detected by mammography. A normal mammogram should not delay biopsy of a clinically suspicious abnormality. [id number] Electronically Signed: Xavier Crane MD at 9:31 EST ,
== END 2021-11-12 23:59 | disposition home or self-care (01) ==
LOC: OPBI 08:22
PROVIDERS: PCP Family Medicine; Referring Provider Nurse Practitioner Family; Visit Provider Nurse Practitioner Family
DX: Z12.31 Encounter for screening mammogram for malignant neoplasm of breast (principal)
CPT/HCPCS: 77067

== ENCOUNTER → 2023-02-23 | Outpatient (CLI) | payer MEDICARE, OTHER, SELFPAY ==
--- NOTE | 2023-02-23 15:21 | BI_ITS ---
MAMMOGRAPHY - BILATERAL SCREENING REASON FOR EXAM: Female, 72 years old. Routine annual screening examination. PERTINENT HISTORY: Grandmother with breast cancer. Remote left stereotactic breast biopsy. TECHNIQUE: Digital bilateral breast mague (3D mammographic acquisition) in the CC and MLO projections. 2-D mediolateral oblique (MLO) and craniocaudad (CC) views of both breasts were obtained. CAD: Full Field Digital Mammography with Computer Added Detection was performed. COMPARISON: Mammogram from 11/12/2021, 06/01/2019. FINDINGS: Breast Composition: The breasts are almost entirely fatty. There are no dominant masses or suspicious calcifications. Stable biopsy marker in the left breast. Stable benign-appearing bilateral axillary lymph nodes. No other significant abnormalities are identified. There has been no significant change since the prior study. BI/SCRN MAMM (CAD)W/MAGUE BILAT IMPRESSION: Stable bilateral screening mammogram. Yearly follow-up mammogram recommended. (A) ASSESSMENT CATEGORY: BIRADS Category 2: Benign. A letter regarding these results will be sent to the patient by the facility within 30 days. Approximately 10% of breast cancers are not detected by mammography. A normal mammogram should not delay biopsy of a clinically suspicious abnormality. Electronically Signed: Gautam Wick MD at 17:31 EDT ,
== END | disposition home or self-care (01) ==
LOC: OPBI 15:19
PROVIDERS: PCP Family Medicine; Referring Provider Nurse Practitioner Family; Visit Provider Nurse Practitioner Family
DX: Z12.31 Encounter for screening mammogram for malignant neoplasm of breast (principal); Z80.3 Family history of malignant neoplasm of breast
CPT/HCPCS: 77063; 77067

== ENCOUNTER → 2023-07-14 | Outpatient (CLI) | payer MEDICARE, OTHER, SELFPAY ==
[2023-07-14 15:36] LABS: Absolute Lymphocyte Count 1.58 X10^3/uL (0.83-4.51); Absolute Neutrophil Count 3.7 X10^3/uL (2.0-7.7); Basophil# 0.03 X10^3/uL; Basophil% 0.5 % (0-1); Eosinophils% 1.7 % (0-5); Hematocrit 43.1 % (37-47); Hemoglobin 13.7 g/dL (12.0-15.0); Lymphocyte # 1.58 X10^3/ul (0.83-4.51); Lymphocyte % 26.9 % (19-41); Mean Corp Hgb Conc 31.8 g/dL (32-36); Mean Corpuscular Hgb 29.8 pg (27.0-32.0); Mean Corpuscular Volume 93.9 fL (81-99); Mean Platelet Vol. 9.6 fl (6.2-12.0); Monocyte# 0.44 X10^3/uL; Monocyte% 7.5 % (0-10); NRBC Flagged by Analyzer 0 % (0-5); Neutrophil # 3.71 X10^3/uL (2.7-7.7); Neutrophil % 63.2 % (47-70); Platelet Count 186 K/mm3 (150-450); RBC Distribution Width CV 13.3 % (11.6-14.6); RBC Distribution Width SD 45.7 fl (35.1-43.9); Red Blood Count 4.59 M/mm3 (4.2-5.4); White Blood Count 5.9 K/mm3 (4.4-11.0)
[2023-07-14 16:07] LABS: Vitamin B12 388 pg/mL (211-911)
[2023-07-14 16:19] LABS: ALB/GLOB Ratio 0.9 RATIO (0.9-2.4); AST(SGOT) 17 U/L (15-37); Alanine Aminotransfer ALT/SGPT 26 U/L (13-56); Albumin, Serum 3.1 g/dL (3.2-5.0); Alkaline Phosphatase 97 U/L (45-117); Anion Gap 5 (5-15); BUN 19 mg/dL (7-18); Calcium,Total 8.7 mg/dL (8.5-10.1); Chloride 108 mmol/L (98-107); EST Glomerular Filtration Rate 87 mL/min (>60); Est Glom Filt Rate - Afr Amer 105 mL/min (>60); Ferritin 65 ng/mL (8-252); Globulin 3.5 g/dL (2.2-4.2); Glucose 97 mg/dL (74-106); Potassium 3.9 mmol/L (3.5-5.1); Protein, Total 6.6 g/dL (6.4-8.2); Sodium Level 140 mmol/L (136-145); Thyroid Stim Hormone (TSH) 2.06 uIU/mL (0.358-3.74)
[2023-07-14 16:23] LABS: International Normalized Ratio 2.9; Prothrombin Time (Protime)PT. 30.6 SECONDS (11.7-14.9)
== END | disposition home or self-care (01) ==
LOC: MFPLAB 13:46
PROVIDERS: PCP Family Medicine; Visit Provider Family Medicine
DX: I10 Essential (primary) hypertension (principal); I48.0 Paroxysmal atrial fibrillation; R53.83 Other fatigue; Z79.01 Long term (current) use of anticoagulants
CPT/HCPCS: 36415; 80053; 82607; 82728; 84443; 85025; 85610

== ENCOUNTER → 2023-12-22 | Outpatient (CLI) | payer MEDICARE, OTHER, SELFPAY ==
--- NOTE | 2023-12-22 12:02 | STRESSREP ---
Stress Test Report Pharmacologic myocardial perfusion stress test. 73-year-old lady for preoperative evaluation Resting EKG demonstrates sinus rhythm with a rate of 74 bpm. Resting blood pressure is 138/78 mmHg. 0.4 mg of regadenoson was infused per usual protocol followed by rapid intravenous saline flush injection. Continuous EKG monitoring was performed. The maximum heart rate was 88 bpm which was 59% of max impacted heart rate the maximum workload was 1 metabolic equivalent. At rest there were no ST or T wave changes noted to suggest ischemia and at peak infusion nonspecific ST changes were noted which did not meet the criteria for ischemia. No clinical angina is noted. The final blood pressure was 126/70 mmHg. Myocardial perfusion protocol. 13.6 mCi of technetium 99m sestamibi was injected at rest. 0.4 mg of regadenoson was infused per usual protocol. At peak infusion 43.7 mCi of technetium 99m sestamibi was injected stress images were obtained stress and rest images were reconstructed and compared in the short axis vertical long and horizontal long axis. Gated images were also obtained. Perfusion SPECT analysis: Review of the stress images demonstrate normal uptake of tracer noted in all areas of the myocardium. The resting images similar demonstrated normal uptake of tracer noted in all areas of the myocardium. No areas of reversibility are noted to suggest ischemia and no previous infarct is noted. Gated SPECT analysis: The gated ejection fraction is 39%. Conclusion: Normal pharmacologic myocardial perfusion stress test. Mildly reduced ejection fraction.
== END | disposition home or self-care (01) ==
LOC: CVS 06:10
PROVIDERS: PCP Family Medicine; Referring Provider Internal Medicine Cardiovascular Disease; Visit Provider Internal Medicine Cardiovascular Disease
DX: Z01.818 Encounter for other preprocedural examination (principal); I25.10 Atherosclerotic heart disease of native coronary artery without angina pectoris
CPT/HCPCS: 78452; 93017; A9500; A4216; J2785

== ENCOUNTER → 2024-01-22 | Outpatient (CLI) | payer MEDICARE, OTHER, SELFPAY ==
--- NOTE | 2024-01-22 08:04 | EKG12_ITS ---
Test Reason : PREOP Blood Pressure : / mmHG Vent. Rate : 089 BPM Atrial Rate : 089 BPM P-R Int : 170 ms QRS Dur : 084 ms QT Int : 356 ms P-R-T Axes : 022 006 026 degrees QTc Int : 433 ms Normal sinus rhythm Normal ECG Confirmed by FREDERICK WAGNER, MALIKA ([id number]), editor dictionary NAEL YOO ([id number]) on 01/22/2024 10:41:36 AM Referred By: Elmo Velásquez Confirmed By:MALIKA MACK MD
--- NOTE | 2024-01-22 08:05 | CT_ITS ---
CT RIGHT LOWER EXTREMITY WITH 3-D IMAGING CLINICAL INDICATION: RIGHT KNEE OSTEOARTHRITIS *ADNK PROTOCOL* TECHNIQUE: Axial CT images of the right lower extremity (including right hip, right knee, and right ankle) was performed without IV contrast material. Coronal and sagittal reformats were provided. RADIATION DOSAGE (If Supplied By Facility): CTDIvol = ( 20.08 ) mGy, DLP = ( 1240.95 ) mGycm COMPARISON: No relevant prior comparison study available. FINDINGS: Bones: There is a right hip arthroplasty in place, with no periprosthetic fracture. There is minimal degenerative arthrosis of the patellofemoral and lateral femorotibial compartments of the right knee, with tiny marginal osteophyte formation. There is a plantar calcaneal spur, otherwise, unremarkable right ankle. Osseous structures are intact without evidence of fracture or dislocation. No lytic or blastic osseous masses. Soft Tissues: There is a small right knee joint effusion. The deep soft tissue structures are unremarkable. The superficial soft tissues are unremarkable without evidence of edema, hematoma, or foreign body. CT/Extremity Lower without Contra IMPRESSION: Minimal degenerative arthrosis of the patellofemoral and lateral femorotibial compartments of the right knee. Small right knee joint effusion. Electronically Signed: Salty Anderson MD at 10:28 EDT ,
== END | disposition home or self-care (01) ==
LOC: PSN 08:04
PROVIDERS: PCP Family Medicine; Referring Provider Specialist; Visit Provider Specialist
DX: Z01.818 Encounter for other preprocedural examination (principal); Z01.810 Encounter for preprocedural cardiovascular examination; M25.561 Pain in right knee; M17.11 Unilateral primary osteoarthritis, right knee; M25.461 Effusion, right knee
CPT/HCPCS: 73700; 93005

== ENCOUNTER → 2024-01-25 | Outpatient (CLI) | payer MEDICARE, OTHER, SELFPAY ==
[2024-01-25 12:05] LABS: Absolute Lymphocyte Count 1.41 X10^3/uL (0.83-4.51); Absolute Neutrophil Count 4.1 X10^3/uL (2.0-7.7); Basophil# 0.03 X10^3/uL; Basophil% 0.5 % (0-1); Eosinophil# 0.18 X10^3/uL; Eosinophils% 2.9 % (0-5); Hematocrit 44.3 % (37-47); Hemoglobin 14.4 g/dL (12.0-15.0); Lymphocyte # 1.41 X10^3/ul (0.83-4.51); Lymphocyte % 22.7 % (19-41); Mean Corp Hgb Conc 32.5 g/dL (32-36); Mean Corpuscular Hgb 30.3 pg (27.0-32.0); Mean Corpuscular Volume 93.1 fL (81-99); Mean Platelet Vol. 9.4 fl (6.2-12.0); Monocyte# 0.52 X10^3/uL; Monocyte% 8.4 % (0-10); NRBC Flagged by Analyzer 0 % (0-5); Neutrophil # 4.06 X10^3/uL (2.7-7.7); Neutrophil % 65.2 % (47-70); Platelet Count 207 K/mm3 (150-450); RBC Distribution Width CV 12.8 % (11.6-14.6); RBC Distribution Width SD 43.8 fl (35.1-43.9); Red Blood Count 4.76 M/mm3 (4.2-5.4); White Blood Count 6.2 K/mm3 (4.4-11.0)
[2024-01-25 12:27] LABS: International Normalized Ratio 1.5; Prothrombin Time (Protime)PT. 17.8 SECONDS (11.7-14.9)
[2024-01-25 12:28] LABS: Partial Thromboplast Time 32.3 Seconds (24.1-36.2)
[2024-01-25 12:39] LABS: Vitamin D,25 Hydroxy 46.9 ng/mL
[2024-01-25 13:01] LABS: ALB/GLOB Ratio 0.8 RATIO (0.9-2.4); AST(SGOT) 18 U/L (15-37); Alanine Aminotransfer ALT/SGPT 18 U/L (13-56); Albumin, Serum 3.3 g/dL (3.2-5.0); Alkaline Phosphatase 102 U/L (45-117); Anion Gap 7 (5-15); BUN 15 mg/dL (7-18); BUN/Creat Ratio 22.8 RATIO (10-20); Calcium,Total 9.3 mg/dL (8.5-10.1); Chloride 104 mmol/L (98-107); Creatinine, Serum 0.66 mg/dL (0.55-1.02); EST Glomerular Filtration Rate 94 mL/min (>60); Est Glom Filt Rate - Afr Amer 114 mL/min (>60); Globulin 4.2 g/dL (2.2-4.2); Glucose 95 mg/dL (74-106); Magnesium 2.2 mg/dL (1.6-2.6); Microalbumin,Random Urine < 5.0 mg/L (NO RANGE EST.); Potassium 3.7 mmol/L (3.5-5.1); Protein, Total 7.5 g/dL (6.4-8.2); Sodium Level 139 mmol/L (136-145)
== END | disposition home or self-care (01) ==
LOC: MFPLAB 11:09
PROVIDERS: PCP Family Medicine; Visit Provider Family Medicine
DX: M17.11 Unilateral primary osteoarthritis, right knee (principal); I48.0 Paroxysmal atrial fibrillation; M85.80 Other specified disorders of bone density and structure, unspecified site; Z79.01 Long term (current) use of anticoagulants; I10 Essential (primary) hypertension
CPT/HCPCS: 36415; 80053; 82043; 82306; 82570; 83735; 84443; 85025; 85610; 85730

== ENCOUNTER → 2024-02-01 | Outpatient (CLI) | payer MEDICARE, OTHER, SELFPAY ==
--- NOTE | 2024-02-01 08:44 | ECHOD_ITS ---
Reason For Study: ATRIAL FIBRILLATION Procedure This was a 2D Doppler, Color Flow transthoracic echocardiogram. Exam performed in department. Left Ventricle Normal LV size. Left ventricular systolic function is normal. The left ventricular ejection fraction is 60 %. No regional wall motion abnormalities noted. Right Ventricle Normal RV size. Normal systolic function. Atria Normal left atrium. Normal right atrium. Mitral Valve Normal mitral valve. Tricuspid Valve Normal tricuspid valve. Aortic Valve Normal aortic valve. Pulmonic Valve Normal pulmonic valve. Great Vessels Normal aortic root. The pulmonary artery is normal size. Inferior vena cava collapse with respiration. Pericardium/Pleural No pericardial effusion. MMode/2D Measurements & Calculations LVIDd: 4.1 cm IVSd: 0.85 cm LVOT diam: 2.1 cm LVIDs: 2.8 cm LVPWd: 0.90 cm LVOT area: 3.4 cm2 RVDd: 3.3 cm FS: 31.5 % Ao root diam: 3.0 cm LAV(MOD-bp): 52.6 ml LVAd ap4: 29.9 cm2 LAV(MOD-bp) Indexed: 26.6 ml/m2 LVLd ap4: 8.6 cm LAV(MOD-sp2): 67.1 ml EDV(MOD-sp4): 83.7 ml LAV(MOD-sp4): 36.3 ml EDV(sp4-el): 87.9 ml LVAs ap4: 17.1 cm2 LVLs ap4: 7.5 cm ESV(MOD-sp4): 33.2 ml ESV(sp4-el): 33.0 ml EF(MOD-sp4): 60.3 % EF(sp4-el): 62.5 % LVAd ap2: 31.8 cm2 SV(MOD-sp4): 50.4 ml SV(MOD-sp2): 55.9 ml LVLd ap2: 8.8 cm EDV(MOD-sp2): 92.5 ml EDV(sp2-el): 97.0 ml LVAs ap2: 17.6 cm2 LVLs ap2: 7.1 cm ESV(MOD-sp2): 36.6 ml ESV(sp2-el): 37.1 ml EF(MOD-sp2): 60.5 % SV(sp4-el): 55.0 ml LA dimension(2D): 3.2 cm LA A4 area: 14.9 cm2 RA A4 area: 11.6 cm2 TAPSE: 2.0 cm Time Measurements MV dec time: 0.22 sec Doppler Measurements & Calculations MV E max gabriel: 61.6 cm/sec Lat Peak E' Gabriel: 10.5 cm/sec Med Peak E' Gabriel: 10.1 cm/sec MV A max gabriel: 90.8 cm/sec E/E' lat: 5.9 E/E' med: 6.1 MV E/A: 0.68 Ao V2 max: 160.4 cm/sec AI max gabriel: 402.5 cm/sec MV dec slope: 279.5 cm/sec2 Ao max P.3 mmHg AI max P.9 mmHg Ao V2 mean: 109.5 cm/sec Ao mean P.3 mmHg AI dec slope: 372.8 cm/sec2 Ao V2 VTI: 31.2 cm AI P1/2t: 316.2 msec AV (velocity ratio): 0.81 NATE(I,D): 2.7 cm2 NATE(V,D): 2.2 cm2 LV V1 max: 106.5 cm/sec SV(LVOT): 84.6 ml PA V2 max: 137.2 cm/sec LV V1 max P.5 mmHg PA max PG (full): 5.1 mmHg LV V1 mean P.7 mmHg LV V1 mean: 79.6 cm/sec LV V1 VTI: 25.2 cm ECHO/Echo Complete Interpretation Summary Normal LV size. Left ventricular systolic function is normal. The left ventricular ejection fraction is 60 %. Structurally normal valves. Ordering Physician: Yoandy Carson Referring Physician: Damian Craig MD Performed By: Yvette Mccloud RDCS
== END | disposition home or self-care (01) ==
LOC: CVS 08:44
PROVIDERS: PCP Family Medicine; Referring Provider Nurse Practitioner Family; Visit Provider Nurse Practitioner Family
DX: Z01.810 Encounter for preprocedural cardiovascular examination (principal); I48.0 Paroxysmal atrial fibrillation; I10 Essential (primary) hypertension
CPT/HCPCS: 93306

== ENCOUNTER 2024-02-04 09:00 | Outpatient (RCR) | payer MEDICARE, OTHER, SELFPAY ==
--- NOTE | 2023-12-11 09:36 | HP.PTEVAL_ITS ---
Patient's Visit Information Visit Information Visit Information: KRISTA TALAVERA is a 73 year old F referred to Physical Therapy by Dr. Elmo Velásquez MD with a diagnosis of PAIN IN RIGHT KNEE ,UNILATERAL PRIMARY OASTEOARTHRITIS ,RIGHT KNEE. Date of Evaluation: 12/11/23 Physical Therapist: Sanket Goodwin, PT, Cert MDT, OCS Visit Plan Frequency: 2-3x /Week Duration: 4-6 Weeks Plan: PT INTERVENTIONS AQUATIC THERAPY ROM RIGHT KNEE ,FLEXABILITY RIGHT LEG , AND STRENGTHENING QUADS/ HAMS/HIP Subjective Subjective: This 73 y/o female presents to physical therapy with right knee DJD right. Patient here for Pre Rehab and plans to have TKA in February 17. Patient has had knee pain for 1 year but symptoms worse past several weeks. Patient seen Dr Velásquez tried injection cortisone which did not help. Patient had x-rays showed progressive DJD right. Patient pain global greater lateral medial . Patient can sleep okay. Denies paresthesia/tingling-. Aggravating factors walking/standing,stairs unable squat kneel. Patient doing steps one step at a time. Alleviating factors teylonal . Patient has no edema. Patient pain affects QOL and function and started to use cane . Patient pain goals lessen pain and have TKA. Patient has h/o FERMIN SOCIAL: VOCATION: retired Pain Right Knee: Pain Intensity (Out of 10): 8 Pain Intensity Range: 10 Objective Objective: POSTURE: mild forward posture hips/knees flexed NEURO: denies paresthesia/tingling PALAPTION: medial /lateral joint line GAIT: reciprocal pattern 2 point gait with cane antalgic right side hips/knee flexed AROM: right knee 10 -100 degrees supine flexion ,left 5-125 degrees MMT: ( peak force) quads 21.2 ,hamstrings 18.5 ,hip flexion 22.7 STAIRS: one step at time with rail and cane Balance/Special Test Scores Lower Extremity Functional Score: 29 Goals Goal 1:: I with Aquatic therapy program Goal Time Frame: 4-6 Weeks Goal 2:: Patient to demonstrate 40% improvement with less pain and increase function Goal Time Frame: 4-6 Weeks Goal 3:: Patient to improve LFES score by 5 points to improve QOL and function Goal Time Frame: 4-6 Weeks Goal 4:: Patient to improve AROM knee by 5-10 degrees to improve gait and stairs Goal Time Frame: 4-6 Weeks Goal 5:: Patient to improve peak force quads/hams/hip by 5-10 # strength Goal Time Frame: 4-6 Weeks Rehabilitation Potential Physical Therapy Diagnosis: This patient has right knee DJD with pain decrease ROM ,strength impairs gait and function thus will need TKA in May and benefit from skilled PT Rehabilitation Potential: Good Anticipated Interventions Patient/Client Instruction: Educate patient on: Condition and Plan of Care For the Purpose of:: To decrease pain, To increase ROM, To improve ability to perform ADL's, To increase tolerance to activity/condition/position, To improve ability of physical actions for home/community/work/leisure, To improve gait and locomotor functions, To improve health of tissue, To decrease soft tissue restriction and To increase flexibility/ROM Therapeutic Exercise to Include: Strength training, Endurance training, Balance training, Flexibilty training, Gait and locomotor training, In an aquatic setting and Active ROM Comment: QUADS/HAMS/HIP For the Purpose of:: To decrease pain, To decrease swelling/inflammation, To increase ROM, To improve muscle performance and motor function, To improve ability to perform ADL's, To increase tolerance to activity/condition/position, To improve ability of physical actions for home/community/work/leisure, To increase flexibility/ROM, To improve endurance and To improve balance Text: Thank you for the opportunity to evaluate your patient. For Medicare and Medicare HMO plans, please review the plan of care and approve it. It will need to be FAXED BACK to us at [phone] for Medicare purposes. For Medicare only, by signing this I certify the plan of care. Please let me know if there are questions or concerns regarding this plan of care. Physician Signature: Date:
--- NOTE | 2024-01-08 10:01 | HP.PTREVAL_ITS ---
Re-Evaluation Intro: Dr. Elmo Velásquez MD, It has been my pleasure to treat KRISTA TALAVERA over the last 9 visits for PAIN IN RIGHT KNEE ,UNILATERAL PRIMARY OASTEOARTHRITIS ,RIGHT KNEE. Please see the progress note below for an update on the physical therapy plan of care! Subjective Subjective: Patient plans to get TKA February 17 Does no use cane Objective Objective/Function: * Patient progressing towards goals with ROM and strength thus new goals updated and PT interventions are appropriate and benefit from skilled PT* POSTURE: mild forward posture hips/knees flexed NEURO: denies paresthesia/tingling PALAPTION: medial /lateral joint line GAIT: reciprocal pattern antalgic gait mild right side ( doesnt use cane) AROM: right knee 5-110 degrees supine flexion ,left 5-125 degrees MMT: ( peak force) quads 31.8 ,hamstrings 31,2 ,hip flexion 32.7 STAIRS: one step at time with rail Plan Plan Plan: PT INTERVENTIONS AQUATIC THERAPY ROM RIGHT KNEE ,FLEXABILITY RIGHT LEG , AND STRENGTHENING QUADS/ HAMS/HIP Balance/Gait/Functional tests Balance/Special Test Scores Lower Extremity Functional Score: 30 Goals Goals Goal 1:: I with Aquatic therapy program Goal Time Frame: 4-6 Weeks Goal Progress: Progressing Goal 2:: Patient to demonstrate 40% improvement with less pain and increase function Goal Time Frame: 4-6 Weeks Goal Progress: Progressing Goal 3:: Patient to improve LFES score by 5 points to improve QOL and function Goal Time Frame: 4-6 Weeks Goal Progress: Progressing Goal 4:: Patient to improve AROM knee by 5-10 degrees to improve gait and st airs( NEW GOAL) Goal Time Frame: 4-6 Weeks Goal 5:: Patient to improve peak force quads/hams/hip by 5-10 # strength ( NEW GOAL) Goal Time Frame: 4-6 Weeks Anticipated Interventions Anticipated Interventions Patient/Client Instruction: Educate patient on: Condition and Plan of Care For the Purpose of:: To decrease pain, To increase ROM, To improve ability to perform ADL's, To increase tolerance to activity/condition/position, To improve ability of physical actions for home/community/work/leisure, To improve gait and locomotor functions, To improve health of tissue, To decrease soft tissue restriction and To increase flexibility/ROM Therapeutic Exercise to Include: Strength training, Endurance training, Balance training, Flexibilty training, Gait and locomotor training, In an aquatic setting and Active ROM Comment: QUADS/HAMS/HIP For the Purpose of:: To decrease pain, To decrease swelling/inflammation, To increase ROM, To improve muscle performance and motor function, To improve ability to perform ADL's, To increase tolerance to activity/condition/position, To improve ability of physical actions for home/community/work/leisure, To increase flexibility/ROM, To improve endurance and To improve balance Re-Evaluation Ending Re-evaluation ending: Please do not hesitate to contact me at [phone] by phone or if you have questions or concerns regarding this new plan of care! Sincerely, Sanket Goodwin, PT, Cert MDT, OCS
--- NOTE | 2024-02-04 09:33 | HP.PTDCSUM ---
Discharge Summary D/C summary: It has been my pleasure to treat KRISTA TALAVERA referred by Dr. Elmo Velásquez MD, with the diagnosis of PAIN IN RIGHT KNEE ,UNILATERAL PRIMARY OASTEOARTHRITIS ,RIGHT KNEE for a total of 17 visit(s). Discharge Date: 02/04/24 Please see the following information for a summary of their discharge status. Subjective Subjective: Doing well ,, Ready for knee TKR Pain Right Knee: Pain Intensity (Out of 10): 4 Overall Improvement % Improvement: 50 Objective Objective/Function: POSTURE: mild forward posture hips/knees flexed NEURO: denies paresthesia/tingling PALAPTION: medial /lateral joint line GAIT: reciprocal pattern antalgic AROM: right knee 5-120 degrees supine flexion ,left 5-125 degrees MMT: ( peak force) quads 31.8 ,hamstrings 31,2 ,hip flexion 32.7 STAIRS: one step at time with rail Goals Goal 1:: I with Aquatic therapy program Goal Progress: Goal Met Goal 2:: Patient to demonstrate 40% improvement with less pain and increase function Goal Progress: Goal Met Goal 3:: Patient to improve LFES score by 5 points to improve QOL and function Goal Progress: Goal Met Goal 4:: Patient to improve AROM knee by 5-10 degrees to improve gait and stairs( NEW GOAL) Goal Progress: Goal Met Goal 5:: Patient to improve peak force quads/hams/hip by 5-10 # strength ( NEW GOAL) Goal Progress: Goal Met Plan Plan: D/C SCHEDULED SURGERY D/C Information d/c sentence: If there are questions or concerns regarding this patient's physical therapy, please feel free to call me at [phone]. Thank you for the referral of this patient. Sincerely, Sanket Goodwin, PT, Cert MDT, OCS Balance/Gait/Functional tests Balance/Special Test Scores Lower Extremity Functional Score: 55 Improvement % Improvement: 50
== END 2024-02-04 09:45 | disposition home or self-care (01) ==
LOC: PT 09:00
PROVIDERS: PCP Family Medicine; Referring Provider Specialist; Visit Provider Specialist
DX: M25.561 Pain in right knee (principal); M17.11 Unilateral primary osteoarthritis, right knee; M25.461 Effusion, right knee
CPT/HCPCS: 97113; 97162; 97530

== ENCOUNTER → 2024-02-05 | Outpatient (CLI) | payer MEDICARE, OTHER, SELFPAY ==
[2024-02-05 14:47] LABS: Absolute Neutrophil Count 4.4 X10^3/uL (2.0-7.7); Basophil# 0.03 X10^3/uL; Basophil% 0.4 % (0-1); Eosinophil# 0.12 X10^3/uL; Eosinophils% 1.7 % (0-5); Hematocrit 41.7 % (37-47); Hemoglobin 13.8 g/dL (12.0-15.0); Lymphocyte % 26.7 % (19-41); Mean Corp Hgb Conc 33.1 g/dL (32-36); Mean Corpuscular Hgb 30.3 pg (27.0-32.0); Mean Corpuscular Volume 91.6 fL (81-99); Mean Platelet Vol. 9.6 fl (6.2-12.0); Monocyte# 0.64 X10^3/uL; NRBC Flagged by Analyzer 0 % (0-5); Neutrophil # 4.41 X10^3/uL (2.7-7.7); Neutrophil % 61.9 % (47-70); Platelet Count 189 K/mm3 (150-450); RBC Distribution Width CV 12.6 % (11.6-14.6); RBC Distribution Width SD 42.2 fl (35.1-43.9); Red Blood Count 4.55 M/mm3 (4.2-5.4); White Blood Count 7.1 K/mm3 (4.4-11.0)
[2024-02-05 15:14] LABS: Albumin, Serum 3.3 g/dL (3.2-5.0); Anion Gap 6 (5-15); BUN 30 mg/dL (7-18); BUN/Creat Ratio 50.7 RATIO (10-20); Chloride 104 mmol/L (98-107); Creatinine, Serum 0.59 mg/dL (0.55-1.02); EST Glomerular Filtration Rate 106 mL/min (>60); Est Glom Filt Rate - Afr Amer 128 mL/min (>60); Glucose 95 mg/dL (74-106); Sodium Level 137 mmol/L (136-145)
== END | disposition home or self-care (01) ==
PROVIDERS: PCP Family Medicine; Referring Provider Specialist; Visit Provider Specialist
DX: Z01.818 Encounter for other preprocedural examination (principal); I48.91 Unspecified atrial fibrillation; Z01.810 Encounter for preprocedural cardiovascular examination; Z01.812 Encounter for preprocedural laboratory examination; I10 Essential (primary) hypertension; Z79.01 Long term (current) use of anticoagulants; Z79.899 Other long term (current) drug therapy
CPT/HCPCS: 36415; 80048; 82040; 85025

== ENCOUNTER → 2024-02-07 | Outpatient (CLI) | payer MEDICARE, OTHER, SELFPAY | END | disposition home or self-care (01) | LOC: LAB.FUTURE 09:37 | PROVIDERS: PCP Family Medicine; Visit Provider Specialist | DX: Z01.818 Encounter for other preprocedural examination (principal); I48.91 Unspecified atrial fibrillation; M17.11 Unilateral primary osteoarthritis, right knee; M21.061 Valgus deformity, not elsewhere classified, right knee; I10 Essential (primary) hypertension; Z79.01 Long term (current) use of anticoagulants; Z01.810 Encounter for preprocedural cardiovascular examination; Z01.812 Encounter for preprocedural laboratory examination ==

== ENCOUNTER → 2024-04-08 | Outpatient (CLI) | payer MEDICARE, OTHER, SELFPAY ==
[2024-04-08 15:28] LABS: Vitamin B12 400 pg/mL (211-911)
[2024-04-08 15:46] LABS: ALB/GLOB Ratio 0.9 RATIO (0.9-2.4); AST(SGOT) 13 U/L (15-37); Alanine Aminotransfer ALT/SGPT 17 U/L (13-56); Albumin, Serum 3.6 g/dL (3.2-5.0); Alkaline Phosphatase 124 U/L (45-117); Anion Gap 9 (5-15); BUN 10 mg/dL (7-18); CRP 7.43 mg/L (0.0-3.0); Calcium,Total 9.5 mg/dL (8.5-10.1); Chloride 104 mmol/L (98-107); Creatinine, Serum 0.56 mg/dL (0.55-1.02); EST Glomerular Filtration Rate 114 mL/min (>60); Est Glom Filt Rate - Afr Amer 138 mL/min (>60); Globulin 3.9 g/dL (2.2-4.2); Glucose 117 mg/dL (74-106); Potassium 3.8 mmol/L (3.5-5.1); Protein, Total 7.5 g/dL (6.4-8.2); Sodium Level 138 mmol/L (136-145); Thyroid Stim Hormone (TSH) 1.72 uIU/mL (0.358-3.74)
[2024-04-11 13:07] LABS: ANTINUCLEAR ANTIBODIES DIRECT Negative (Negative)
== END | disposition home or self-care (01) ==
LOC: MTLAB 12:38
PROVIDERS: PCP Family Medicine; Referring Provider Family Medicine; Visit Provider Family Medicine
DX: R53.83 Other fatigue (principal)
CPT/HCPCS: 36415; 80053; 82607; 82746; 84443; 86038; 86140

== ENCOUNTER → 2024-07-19 | Outpatient (CLI) | payer MEDICARE, OTHER, SELFPAY ==
--- NOTE | 2024-07-19 13:10 | BI_ITS ---
MAMMOGRAPHY - BILATERAL SCREENING 3-D TOMOSYNTHESIS REASON FOR EXAM: Female, 74 years old. screening PERTINENT HISTORY: No significant family history. TECHNIQUE: 2-D mammograms and 3-D Tomosynthesis of the breast (s) were performed. CAD was performed. COMPARISON: 02/23/2023 FINDINGS: The breast composition is composed of scattered fibroglandular density. Scattered benign calcifications are seen. No dense spiculated masses or suspicious microcalcifications are identified. No architectural distortion is identified. There is no skin thickening or retraction. There has been no significant change since the prior study. BI/SCRN MAMM (CAD)W/MAGUE BILAT IMPRESSION: No mammographic signs of malignancy. Routine yearly mammograms recommended. ASSESSMENT CATEGORY: BIRADS Category 1: Negative. A letter regarding these results will be sent to the patient by the facility within 30 days. FOLLOW UP RECOMMENDATION: Yearly follow up mammogram recommended. (A) Approximately 10% of breast cancers are not detected by mammography. A normal mammogram should not delay biopsy of a clinically suspicious abnormality. Electronically Signed: Fer Delgado MD at 14:36 EDT ,
== END | disposition home or self-care (01) ==
LOC: OPBI 13:09
PROVIDERS: PCP Family Medicine; Referring Provider Family Medicine; Visit Provider Family Medicine
DX: Z12.31 Encounter for screening mammogram for malignant neoplasm of breast (principal)
CPT/HCPCS: 77063; 77067

== ENCOUNTER 2024-10-03 05:32 | Emergency (ER) | payer MEDICARE, OTHER, SELFPAY ==
[2024-10-03 05:32] VITALS: BP 181/64; PULSE 124; RESP 18; TEMP 37.4; O2SAT 95; BMI 36.3
--- NOTE | 2024-10-03 05:39 | RAD_ITS ---
STUDY: X-RAY CHEST REASON FOR EXAM: Female, 74 years old. cough, vomiting TECHNIQUE: Single AP portable view of the chest. COMPARISON: None. FINDINGS: The lungs are clear and expanded. There is no demonstrated pleural abnormality. Normal size heart. Normal mediastinum and [place]. Normal visualized pulmonary arteries. Normal visualized aortic arch and descending thoracic aorta. Normal visualized thoracic spine. Normal visualized ribs, clavicles, and shoulders. There is no demonstrated abnormality of the visualized soft tissue structures of the upper abdomen. RAD/Chest 1 View (Portable) IMPRESSION: Normal x-ray examination of the chest. Electronically Signed: Fer Delgado MD at 8:15 EST ,
--- NOTE | 2024-10-03 05:39 | EKG12_ITS ---
Test Reason : DYSRHYTHMIA Blood Pressure : */* mmHG Vent. Rate : 115 BPM Atrial Rate : 115 BPM P-R Int : 210 ms QRS Dur : 78 ms QT Int : 296 ms P-R-T Axes : 57 20 23 degrees QTcB Int : 409 ms Sinus tachycardia with 1st degree A-V block Otherwise normal ECG Confirmed by FREDERICK WAGNER, MALIKA ([id number]), editor city NAEL YOO ([id number]) on 10/04/2024 7:55:06 AM Referred By: BB Confirmed By: MALIKA MACK MD
--- NOTE | 2024-10-03 05:40 | EDS_ITS ---
HPI HPI - GI History of Present Illness Chief Complaint: Nausea/Vomiting Informant: patient Narrative Narrative: 74-year-old female presents at 5:30 AM for symptoms that started 1.5 hours ago. She woke up feeling poorly, nauseated, she vomited clear liquid once, and decided to come to the ED. She denies any associated subjective fevers or chills, chest or abdominal pain, diarrhea, she has had a cough but no dyspnea. She was at a 1 or 2 days ago, no known sick contacts but she was around a lot of people. PFSH PFSH Medical History Essential hypertension Other acute postprocedural pain Wears glasses Arthritis Migraine headache Former smoker Leg cramps History of pain when walking Anticoagulant long-term use Paroxysmal atrial fibrillation Anxiety Obesity Paroxysmal supraventricular tachycardia Dizziness Palpitations Female stress incontinence Uterovaginal prolapse, incomplete Home Medications ?Medication ?Instructions ?Recorded ?Last Taken ?Type acetaminophen 500 mg tablet 1,000 mg PO Q8 PRN pain 07/23/22 Unknown History diltiazem HCl 120 mg 120 mg PO DAILY #90 caps 07/24/22 Unknown Rx capsule,extended release 24 hr, controlled ascorbic acid (vitamin C) 500 mg 500 mg PO QAM osteoporosis 05/31/24 Unknown History tablet (Vitamin C) cholecalciferol (vitamin D3) 25 25 mcg PO QDAY 05/31/24 Unknown History mcg (1,000 unit) tablet apixaban 5 mg tablet (Eliquis) 5 mg PO BID #180 tabs 08/26/24 Unknown Rx buspirone 5 mg tablet 5 mg PO BID 10/03/24 Unknown History calcium citrate 200 mg PO BID 10/03/24 Unknown History magnesium oxide 400 mg (241.3 mg 400 mg PO QHS 10/03/24 Unknown History magnesium) tablet ondansetron 8 mg disintegrating 8 mg PO Q8H PRN nausea and 10/03/24 Unknown Rx tablet vomiting #12 tabs Allergy/AdvReac Type Severity Reaction Status Date / Time metoprolol AdvReac Mild Nausea Verified 10/03/24 05:32 flecainide AdvReac nausea Verified 10/03/24 05:32 Family History Mother CAD (coronary artery disease) Myocardial infarction, Onset Age: 80 Father Asthma COPD (chronic obstructive pulmonary disease) Brother Colon cancer COPD (chronic obstructive pulmonary disease) Former smoker Grandmother Breast cancer Grandfather Colon cancer Surgical History History of knee replacement (02/18/24) History of total hip arthroplasty (05/08/21) Hx of total hip arthroplasty History of esophagogastroduodenoscopy (EGD) Hx of colonoscopy History of bladder suspension procedure (2018) H/O total hysterectomy (2018) Social History Smoking Status: Former smoker how long ago did patient quit smokin years ago alcohol intake: never substance use type: does not use caffeine: Yes Type: coffee Number of servings: 2 ROS ROS ED Constitutional Constitutional ED: Denies chills or fever(s) Eyes Eyes: Denies change in vision or diplopia ENT ENT ED: Denies rhinorrhea or sore throat Cardiovascular Cardiovascular: Denies chest pain or palpitations Respiratory/Chest Respiratory/Chest: Reports cough; Denies dyspnea Gastrointestinal Gastrointestinal: Reports nausea and vomiting; Denies abdominal pain or diarrhea Genitourinary Genitourinary ED: Denies dysuria or hematuria Musculoskeletal Musculoskeletal: Denies back pain or neck pain Integumentary Denies abscess or rash Neurologic Neurologic: Denies headache(s), paresthesias or weakness Psychiatric Psychiatric: Denies anxiety or suicidal thoughts EXAM Physical Exam Const Vital Signs: 10/03/24 05:32 10/03/24 05:55 Temperature 99.3 F H Temperature Source Oral Pulse Rate 124 H Respiratory Rate 18 Blood Pressure 181/64 H Blood Pressure Mean 103 Pulse Ox 95 98 Oxygen Delivery Method Room Air Positive well nourished and well developed General Appearance ED: well developed and NAD HEENT Reports moist mucous membranes normocephalic and atraumatic Eyes PERRL and EOMs intact bilaterally Neck full ROM and supple Resp normal respiratory effort and clear to auscultation bilaterally Effort and Inspection: able to speak in complete sentences Cardio regular rate, regular rhythm and no murmurs Rate: tachycardic GI non-tender and non-distended Auscultation: normoactive bowel sounds Palpation: soft Back/Spine no CVA tenderness General Back: other FROM Extremity normal to inspection General Extremety ED: Negative for edema, pulses abnormal or tenderness General Extremity: Negative for edema or pulses abnormal Neuro oriented x3, CN's II-XII intact bilaterally and no sensory deficits noted Sensorium / Orientation: awake and alert Motor Exam: strength 5/5 throughout Psych mental status grossly normal and thought process normal Skin no rashes or lesions noted and no wounds MDM MDM MDM Narrative Medical decision making narrative: Patient has a low-grade temperature of 99.3, making viral gastritis more likely item of the differential, which also includes acute coronary syndrome, dysrhythmia, lower lobe pneumonia causing her cough and GI symptoms. Therefore chest x-ray, EKG, labs obtained. EKG shows sinus tachycardia but is otherwise unremarkable except for an incidental first-degree AV block. While awaiting workup she was given a bag of IV fluids as well as some Tylenol after receiving Zofran to see if treating her low-grade fever and giving her fluids would help her tachycardia. 1 view chest x-ray on my interpretation shows chronic-appearing interstitial abnormalities, but no acute infiltrates or pleural effusion or pneumothorax. Her labs including her troponin are unremarkable. After the fluids, Tylenol, Zofran, her heart rate has come down to about 108, she is feeling less nauseated and doing okay clinically. Given the patient presenting 1.5 hours after the onset of symptoms, in order to rule out acute coronary syndrome I am sending a 2-hour repeat high-sensitivity troponin. If the patient continues to be doing well and tolerating oral fluids and the delta comes back negative, I support sending the patient home with a prescription for Zofran to supportively and empirically treat acute gastritis. Checked out to a.m. physician at shift change. Lab Data Attestation: I reviewed the patient's lab results. Labs: Laboratory Results - last 24 hr 10/03/24 05:50 WBC 6.1 RBC 4.60 Hgb 13.9 Hct 41.5 MCV 90.2 MCH 30.2 MCHC 33.5 RDW Std Deviation 40.1 RDW Coeff of Marielos 12.2 Plt Count 113 L MPV 9.1 Immature Gran % (Auto) 0.300 Neut % (Auto) 83.6 H Lymph % (Auto) 6.8 L [place] % (Auto) 8.2 Eos % (Auto) 0.8 Baso % (Auto) 0.3 Absolute Neuts (auto) 5.1 Absolute Lymphs (auto) 0.41 L Nucleated RBC % 0 Sodium 138 Potassium 3.9 Chloride 108 H Carbon Dioxide 27.0 Anion Gap 3 L BUN 11 Creatinine 0.65 Estim Creat Clear Calc 68.84 Est GFR (MDRD) Af Amer 114 Est GFR (MDRD) Non-Af 94 BUN/Creatinine Ratio 16.8 Glucose 123 H Calcium 9.1 Troponin I High Sens 7 Rhythm Strip Rhythm Strip: Sinus Tach Rate: 120 Ectopy: None EKG Initial EKG: Attestation: I personally reviewed and interpreted this EKG as follows: Interpretation: No Acute Injury Pattern, Sinus Tachycardia and AV Block (1st deg) Discharge Plan Triage Chief Complaint: Nausea/Vomiting ED Provider: Thierry Sy Dx/Rx/DC Orders Clinical Impression: Acute gastritis without bleeding Instructions: ED Gastritis (Adult) Prescriptions: New ondansetron 8 mg tablet,disintegrating 8 mg PO Q8H PRN (Reason: nausea and vomiting) Qty: 12 0RF No Action acetaminophen 500 mg tablet 1,000 mg PO Q8 PRN (Reason: pain) Rx Instructions: Do not take more than 3000 mg Tylenol in a 24-hour period. cholecalciferol (vitamin D3) 25 mcg (1,000 unit) tablet 25 mcg PO QDAY ascorbic acid (vitamin C) [Vitamin C] 500 mg tablet 500 mg PO QAM buspirone 5 mg tablet 5 mg PO BID calcium citrate 200 mg (950 mg) tablet 200 mg PO BID magnesium oxide 400 mg (241.3 mg magnesium) tablet 400 mg PO QHS diltiazem HCl 120 mg capsule,ext.rel 24h degradable 120 mg PO DAILY Qty: 90 3RF Eliquis 5 mg tablet 5 mg PO BID Qty: 180 4RF Primary Care Provider: Damian Craig Referrals: Damian Craig MD [Primary Care Provider] - 3-5 Days if not improving Print Language: Citizen Of [place]
[2024-10-03] MEDS: 0.9% Normal Saline (500mL Bag) 500 ML 999 ML IV (05:53)
[2024-10-03] MEDS: Ondansetron 4 MG/2 ML Vial IV (05:53)
[2024-10-03] MEDS: Acetaminophen 500 MG Tablet 1000 MG PO (05:54)
[2024-10-03 05:55] VITALS: O2SAT 98
[2024-10-03 06:02] LABS: Absolute Lymphocyte Count 0.41 X10^3/uL (0.83-4.51); Absolute Neutrophil Count 5.1 X10^3/uL (2.0-7.7); Basophil# 0.02 X10^3/uL; Basophil% 0.3 % (0-1); Eosinophil# 0.05 X10^3/uL; Eosinophils% 0.8 % (0-5); Hematocrit 41.5 % (37-47); Hemoglobin 13.9 g/dL (12.0-15.0); Lymphocyte # 0.41 X10^3/ul (0.83-4.51); Lymphocyte % 6.8 % (19-41); Mean Corp Hgb Conc 33.5 g/dL (32-36); Mean Corpuscular Hgb 30.2 pg (27.0-32.0); Mean Corpuscular Volume 90.2 fL (81-99); Mean Platelet Vol. 9.1 fl (6.2-12.0); Monocyte% 8.2 % (0-10); NRBC Flagged by Analyzer 0 % (0-5); Neutrophil # 5.07 X10^3/uL (2.7-7.7); Neutrophil % 83.6 % (47-70); POSITIVE DIFFERENTIAL YES; Platelet Count 113 K/mm3 (150-450); RBC Distribution Width CV 12.2 % (11.6-14.6); RBC Distribution Width SD 40.1 fl (35.1-43.9); White Blood Count 6.1 K/mm3 (4.4-11.0)
[2024-10-03 06:18] LABS: Anion Gap 3 (5-15); BUN 11 mg/dL (7-18); BUN/Creat Ratio 16.8 RATIO (10-20); Calcium,Total 9.1 mg/dL (8.5-10.1); Chloride 108 mmol/L (98-107); Creatinine, Serum 0.65 mg/dL (0.55-1.02); EST Glomerular Filtration Rate 94 mL/min (>60); Est Glom Filt Rate - Afr Amer 114 mL/min (>60); Estimated Creatinine Clearance 68.84 ml/min; Glucose 123 mg/dL (74-106); Potassium 3.9 mmol/L (3.5-5.1); Sodium Level 138 mmol/L (136-145); Troponin-I HS (w/2H Reflex) 7 pg/mL (3.0-54.0)
[2024-10-03 07:32] VITALS: BP 143/67; PULSE 92
[2024-10-03 07:57] LABS: Reflex Troponin-HS? (from REC) Y
--- NOTE | 2024-10-03 08:16 | EKG12_ITS ---
Test Reason : SOB/CP Blood Pressure : */* mmHG Vent. Rate : 99 BPM Atrial Rate : 99 BPM P-R Int : 206 ms QRS Dur : 80 ms QT Int : 348 ms P-R-T Axes : 37 10 26 degrees QTcB Int : 446 ms Normal sinus rhythm Normal ECG When compared with ECG of 03-Oct-2024 05:46, MANUAL COMPARISON REQUIRED DATA IS UNCONFIRMED Confirmed by FREDERICK WAGNER, MALIKA ([id number]), clinical editor NAEL YOO ([id number]) on 10/06/2024 1:18:32 PM Referred By: Confirmed By: MALIKA MACK MD
[2024-10-03 08:25] LABS: Troponin-I HS 13 pg/mL (3.0-54.0)
[2024-10-03 08:45] VITALS: BP 143/64; PULSE 71; RESP 20; TEMP 36.9; O2SAT 100
== END 2024-10-03 08:50 | disposition home or self-care (01) ==
LOC: ED 05:59
PROVIDERS: Emergency Provider Emergency Medicine; PCP Family Medicine; Visit Provider Emergency Medicine
DX: K29.00 Acute gastritis without bleeding (principal); I10 Essential (primary) hypertension; Z87.891 Personal history of nicotine dependence; Z79.899 Other long term (current) drug therapy; Z79.01 Long term (current) use of anticoagulants
CPT/HCPCS: 71045; 80048; 84484; 85025; 93005; 96361; 96374; 99283; A4216; J2405

== ENCOUNTER 2024-10-05 08:48 | Emergency (ER) | payer MEDICARE, OTHER, SELFPAY ==
[2024-10-05 08:49] VITALS: BP 135/66; PULSE 117; RESP 18; TEMP 37.2; O2SAT 92
--- NOTE | 2024-10-05 09:03 | EDS_ITS ---
HPI History of Present Illness Chief Complaint: Abd Pain Informant: patient and spouse/S.O. Narrative Narrative: 74-year-old female brought to the emergency room because she states she does not feel well. Patient states that she was seen here on Thursday and was diagnosed with gastritis. She states that when she got home she developed bruising of her right leg from the EKG sticker but now also is on her knee. She states that she continues to have nausea. This morning she states she had a fever of 103 and took Tylenol at 0800 hrs. She did not take any of her morning medications because she was afraid she might throw up. She has not yet thrown up. states that she seemed like she was going to throw up yesterday. She denies cough sore throat or runny nose. She states my stomach just does not feel well. states he feels fine. She denies any diarrhea. Review of her labs on Thursday showed a mild thrombocytopenia. She is on Eliquis for atrial fibrillation. [facility] Medical History Essential hypertension Other acute postprocedural pain Wears glasses Arthritis Migraine headache Former smoker Leg cramps History of pain when walking Anticoagulant long-term use Paroxysmal atrial fibrillation Anxiety Obesity Paroxysmal supraventricular tachycardia Dizziness Palpitations Female stress incontinence Uterovaginal prolapse, incomplete Home Medications ?Medication ?Instructions ?Recorded ?Last Taken ?Type acetaminophen 500 mg tablet 1,000 mg PO Q8 PRN pain 07/23/22 Unknown History diltiazem HCl 120 mg 120 mg PO DAILY #90 caps 07/24/22 Unknown Rx capsule,extended release 24 hr, controlled ascorbic acid (vitamin C) 500 mg 500 mg PO QAM osteoporosis 05/31/24 Unknown History tablet (Vitamin C) cholecalciferol (vitamin D3) 25 25 mcg PO QDAY 05/31/24 Unknown History mcg (1,000 unit) tablet apixaban 5 mg tablet (Eliquis) 5 mg PO BID #180 tabs 08/26/24 Unknown Rx buspirone 5 mg tablet 5 mg PO BID 10/03/24 Unknown History calcium citrate 200 mg PO BID 10/03/24 Unknown History magnesium oxide 400 mg (241.3 mg 400 mg PO QHS 10/03/24 Unknown History magnesium) tablet ondansetron 8 mg disintegrating 8 mg PO Q8H PRN nausea and 10/03/24 Unknown Rx tablet vomiting #12 tabs Allergy/AdvReac Type Severity Reaction Status Date / Time metoprolol AdvReac Mild Nausea Verified 10/05/24 08:49 flecainide AdvReac nausea Verified 10/05/24 08:49 Family History Mother CAD (coronary artery disease) Myocardial infarction, Onset Age: 80 Father Asthma COPD (chronic obstructive pulmonary disease) Brother Colon cancer COPD (chronic obstructive pulmonary disease) Former smoker Grandmother Breast cancer Grandfather Colon cancer Surgical History History of knee replacement (02/18/24) History of total hip arthroplasty (05/08/21) Hx of total hip arthroplasty History of esophagogastroduodenoscopy (EGD) Hx of colonoscopy History of bladder suspension procedure (2017) H/O total hysterectomy (2017) Social History Smoking Status: Former smoker how long ago did patient quit smokin years ago alcohol intake: never substance use type: does not use caffeine: Yes Type: coffee Number of servings: 2 ROS ROS ED ROS Narrative Fatigue Constitutional Constitutional ED: Reports chills and fever(s); Denies weight loss Eyes Eyes: Denies change in vision or diplopia ENT ENT ED: Denies ear pain, rhinorrhea or sore throat Cardiovascular Cardiovascular: Denies chest pain, orthopnea, palpitations or racing heartbeat Respiratory/Chest Respiratory/Chest: Denies cough, dyspnea or orthopnea Gastrointestinal Gastrointestinal: Reports nausea and vomiting; Denies abdominal pain or diarrhea Genitourinary Genitourinary ED: Denies dysuria, hematuria or urinary frequency Musculoskeletal Musculoskeletal: Denies arthralgias or myalgias Integumentary Reports rash; Denies abscess Neurologic Neurologic: Denies headache(s) or weakness Psychiatric Psychiatric: Denies anxiety, depression, suicidal ideation or suicidal thoughts Endocrine Endocrinology: Denies polydipsia, polyphagia or polyuria Allergic/Immunologic Allergic/Immunologic ED: Denies mouth swelling, tongue swelling or urticaria EXAM Physical Exam Const Vital Signs: 10/05/24 08:49 10/05/24 10:56 10/05/24 12:05 Temperature 98.9 F 98.8 F Temperature Source Oral Pulse Rate 117 H 89 84 Respiratory Rate 18 14 16 Blood Pressure 135/66 H 124/54 H 138/79 H Blood Pressure Mean 89 77 98 Pulse Ox 92 93 97 Oxygen Delivery Method Room Air Room Air Positive well nourished, well developed and obese General Appearance ED: well developed and NAD Nutritional Appearance: obese HEENT Reports normocephalic, head/scalp atraumatic and moist mucous membranes Eyes PERRL and EOMs intact bilaterally Neck no lymphadenopathy, supple and no JVD Resp normal respiratory effort and clear to auscultation bilaterally Cardio regular rate, regular rhythm and no murmurs Rate: tachycardic GI normal to inspection, nondistended, normoactive bowel sounds and non-tender Palpation: soft Back/Spine no CVA tenderness and normal ROM Extremity normal to inspection General Extremety ED: Negative for edema General Extremity: Negative for edema Neuro oriented x3 and CN's II-XII intact bilaterally Sensorium / Orientation: alert Motor Exam: strength 5/5 throughout Psych mental status grossly normal Mood & Affect: Negative for depressed or tearful Skin no wounds Skin Narrative: There is a petechial-like rash on the right lower extremity extending from near the ankle to mid murray. There is a second area just inferior to the right patella anteriorly. This rash does not kwesi and again appears petechial in nature MDM MDM MDM Narrative Medical decision making narrative: Differential diagnosis includes but not limited to viral syndrome gastritis gastroenteritis dehydration electrolyte abnormalities UTI Patient's white count 6.9 with 85.7 neutrophils. Platelet count 113 which is where she was on Thursday. Hemoglobin is 13.1 INR 1.3 PTT 34.6 creatinine 0.67 glucose 151 elevation of her transaminases and slight elevation of alk phos normal total bilirubin direct bilirubin slightly elevated 0.32 urinalysis with no overt infection. Patient is COVID-19 positive. Patient's vital signs are stable. She is able to ambulate and believes that she will do well at home. Would recommend continued supportive care follow-up for return if worsening History & Record Review Discussion w/independent historian: Patient and Significant other Lab Data Attestation: I reviewed the patient's lab results. Labs: Laboratory Results - last 24 hr 10/05/24 10/05/24 09:15 09:40 WBC 6.9 RBC 4.39 Hgb 13.1 Hct 39.5 MCV 90.0 MCH 29.8 MCHC 33.2 RDW Std Deviation 40.5 RDW Coeff of Marielos 12.1 Plt Count 113 L MPV 9.4 Immature Gran % (Auto) 0.300 Neut % (Auto) 85.7 H Lymph % (Auto) 5.4 L Wallace % (Auto) 8.5 Eos % (Auto) 0.0 Baso % (Auto) 0.1 Absolute Neuts (auto) 5.9 Absolute Lymphs (auto) 0.37 L Nucleated RBC % 0 PT 16.7 H INR 1.3 APTT 34.6 Sodium 136 Potassium 3.3 L Chloride 101 Carbon Dioxide 27.0 Anion Gap 8 BUN 15 Creatinine 0.67 Est GFR (MDRD) Af Amer 112 Est GFR (MDRD) Non-Af 92 BUN/Creatinine Ratio 22.5 H Glucose 151 H Calcium 8.5 Total Bilirubin 0.70 Direct Bilirubin 0.32 H AST 160 H ALT 146 H Alkaline Phosphatase 127 H Total Protein 6.5 Albumin 2.7 L Globulin 3.8 Lipase 21 Urine Color Yellow Urine Clarity Clear Urine pH 6.0 Ur Specific [place] 1.025 Urine Protein 30 H Urine Glucose (UA) Normal Urine Ketones 5 H Urine Occult Blood 10 H Urine Nitrite Negative Urine Bilirubin 1 H Urine Urobilinogen 1 H Ur Leukocyte Esterase 25 H Urine RBC 0-5 SEEN Urine WBC 0-5 SEEN Ur Squamous Epith Cells 0 SEEN Calcium Oxalate Crystal 3+ Urine Bacteria 0 SEEN Urine Mucus 0 SEEN Discharge Plan Triage Chief Complaint: Abd Pain ED Provider: Nasir Jean Baptiste Dx/Rx/DC Orders Clinical Impression: COVID-19, Anticoagulant long-term use, Nausea, Thrombocytopenia, Petechial rash Instructions: Symptoms of COVID-19 Infection, Thrombocytopenia Prescriptions: No Action acetaminophen 500 mg tablet 1,000 mg PO Q8 PRN (Reason: pain) Rx Instructions: Do not take more than 3000 mg Tylenol in a 24-hour period. cholecalciferol (vitamin D3) 25 mcg (1,000 unit) tablet 25 mcg PO QDAY ascorbic acid (vitamin C) [Vitamin C] 500 mg tablet 500 mg PO QAM buspirone 5 mg tablet 5 mg PO BID calcium citrate 200 mg (950 mg) tablet 200 mg PO BID magnesium oxide 400 mg (241.3 mg magnesium) tablet 400 mg PO QHS ondansetron 8 mg tablet,disintegrating 8 mg PO Q8H PRN (Reason: nausea and vomiting) Qty: 12 0RF diltiazem HCl 120 mg capsule,ext.rel 24h degradable 120 mg PO DAILY Qty: 90 3RF Eliquis 5 mg tablet 5 mg PO BID Qty: 180 4RF Primary Care Provider: Damian Craig Referrals: Damian Craig MD [Primary Care Provider] - As Needed Print Language: Wolof Disposition Disposition: Home, Self Care Discharge Date/Time: 10/05/24 12:08
[2024-10-05 09:31] LABS: Absolute Lymphocyte Count 0.37 X10^3/uL (0.83-4.51); Absolute Neutrophil Count 5.9 X10^3/uL (2.0-7.7); Basophil# 0.01 X10^3/uL; Basophil% 0.1 % (0-1); Hematocrit 39.5 % (37-47); Hemoglobin 13.1 g/dL (12.0-15.0); Lymphocyte # 0.37 X10^3/ul (0.83-4.51); Lymphocyte % 5.4 % (19-41); Mean Corp Hgb Conc 33.2 g/dL (32-36); Mean Corpuscular Hgb 29.8 pg (27.0-32.0); Mean Platelet Vol. 9.4 fl (6.2-12.0); Monocyte# 0.58 X10^3/uL; Monocyte% 8.5 % (0-10); NRBC Flagged by Analyzer 0 % (0-5); Neutrophil # 5.87 X10^3/uL (2.7-7.7); Neutrophil % 85.7 % (47-70); POSITIVE DIFFERENTIAL YES; Platelet Count 113 K/mm3 (150-450); RBC Distribution Width CV 12.1 % (11.6-14.6); RBC Distribution Width SD 40.5 fl (35.1-43.9); Red Blood Count 4.39 M/mm3 (4.2-5.4); White Blood Count 6.9 K/mm3 (4.4-11.0)
[2024-10-05 09:46] LABS: AST(SGOT) 160 U/L (15-37); Alanine Aminotransfer ALT/SGPT 146 U/L (13-56); Albumin, Serum 2.7 g/dL (3.2-5.0); Alkaline Phosphatase 127 U/L (45-117); Anion Gap 8 (5-15); BUN 15 mg/dL (7-18); BUN/Creat Ratio 22.5 RATIO (10-20); Bilirubin, Direct 0.32 mg/dL (0.00-0.30); Calcium,Total 8.5 mg/dL (8.5-10.1); Chloride 101 mmol/L (98-107); Creatinine, Serum 0.67 mg/dL (0.55-1.02); EST Glomerular Filtration Rate 92 mL/min (>60); Est Glom Filt Rate - Afr Amer 112 mL/min (>60); Globulin 3.8 g/dL (2.2-4.2); Glucose 151 mg/dL (74-106); Lipase 21 U/L (13-75); Potassium 3.3 mmol/L (3.5-5.1); Protein, Total 6.5 g/dL (6.4-8.2); Sodium Level 136 mmol/L (136-145)
[2024-10-05 09:47] LABS: International Normalized Ratio 1.3; Prothrombin Time (Protime)PT. 16.7 SECONDS (11.7-14.9)
[2024-10-05 09:48] LABS: Partial Thromboplast Time 34.6 Seconds (24.1-36.2)
[2024-10-05 09:55] LABS: Bacteria 0 SEEN /hpf (None Seen); Mucous, Urine 0 SEEN /hpf (<or=2+); Squamous Epithelial Cells - UA 0 SEEN /hpf (5-10)
[2024-10-05 10:01] LABS: Color, Urine Yellow (Yellow); Glucose, Dipstick Normal (Normal); Ketone-Dipstick 5 mg/dl (Negative); Leukocyte Esterase-Dipstick 25 /ul (Negative); Nitrite-Dipstick Negative (Negative); Occult Blood-Urine 10 /ul (Negative); Protein-Dipstick 30 mg/dl (Negative); Specific Gravity, Urine 1.025 (1.002-1.030); Urine Clarity Clear (Clear); Urine Urobilinogen 1 mg/dl (Normal)
[2024-10-05 10:04] LABS: Urine Bilirubin Dipstick 1 mg/dL (Negative)
[2024-10-05 10:09] LABS: Red Blood Cells-Urine 0-5 SEEN /hpf (0-5); White Blood Cells 0-5 SEEN /hpf (0-5)
[2024-10-05 10:10] LABS: Calcium Oxalate Crystals Ur 3+ /hpf (<or=2+)
[2024-10-05] MEDS: 0.9% Normal Saline (1000mL) 1,000 ML 1000 ML IV (10:28)
[2024-10-05] MEDS: Ondansetron 4 MG/2 ML Vial IV (10:28)
[2024-10-05 10:30] VITALS: BMI 36.8
[2024-10-05 10:56] VITALS: BP 124/54; PULSE 89; RESP 14; O2SAT 93
[2024-10-05 12:05] VITALS: BP 138/79; PULSE 84; RESP 16; TEMP 37.1; O2SAT 97
== END 2024-10-05 12:08 | disposition home or self-care (01) ==
PROVIDERS: Emergency Provider Emergency Medicine; PCP Family Medicine; Visit Provider Emergency Medicine
DX: U07.1 COVID-19 (principal); I48.0 Paroxysmal atrial fibrillation; R11.0 Nausea; Z87.891 Personal history of nicotine dependence; I10 Essential (primary) hypertension; D69.6 Thrombocytopenia, unspecified; R10.9 Unspecified abdominal pain; Z79.01 Long term (current) use of anticoagulants; E66.9 Obesity, unspecified
CPT/HCPCS: 80048; 80076; 81001; 83690; 85025; 85610; 85730; 87631; 96361; 96374; 99284; A4216; J2405

== ENCOUNTER → 2024-10-11 | Outpatient (CLI) | payer MEDICARE, OTHER, SELFPAY ==
[2024-10-11 15:23] LABS: Hematocrit 41.3 % (37-47); Mean Corp Hgb Conc 31.5 g/dL (32-36); Mean Corpuscular Hgb 29.1 pg (27.0-32.0); Mean Corpuscular Volume 92.4 fL (81-99); Mean Platelet Vol. 8.9 fl (6.2-12.0); POSITIVE COUNT YES; POSITIVE MORPHOLOGY YES; Platelet Count 345 K/mm3 (150-450); RBC Distribution Width CV 12.8 % (11.6-14.6); RBC Distribution Width SD 43.2 fl (35.1-43.9); Red Blood Count 4.47 M/mm3 (4.2-5.4); White Blood Count 11.5 K/mm3 (4.4-11.0)
[2024-10-11 15:33] LABS: Differential Indicated MANUAL DIFF
[2024-10-11 15:37] LABS: Erythrocyte Sedimentation Rate 57 mm/hr (0-30)
[2024-10-11 16:38] LABS: Neutrophil-Band 1 % (0-5); Neutrophil-Segmented 71 % (47-70); Total Cells Counted 100 (MANUAL DIFF)
[2024-10-11 16:39] LABS: Eosinophil 1 % (0-5); Lymphocyte 13 % (19-41); Monocyte 9 % (0-10); Myelocyte 5 % (0-0)
[2024-10-11 17:04] LABS: Absolute Neutrophil Count 8.3 X10^3/uL (2.0-7.7)
[2024-10-11 17:05] LABS: Absolute Lymphocyte Count 1.49 X10^3/uL (0.83-4.51); Platelet Estimate ADEQUATE (ADEQ); Red Cell Morphology N CHROM NORMAL (NORM C&C)
[2024-10-11 17:06] LABS: Anisocytosis RARE; Macrocytosis RARE; Ovalocyte RARE
[2024-10-12 11:39] LABS: Anion Gap 8 (5-15); BUN 24 mg/dL (7-18); BUN/Creat Ratio 41.2 RATIO (10-20); Calcium,Total 9.3 mg/dL (8.5-10.1); Chloride 105 mmol/L (98-107); Creatinine, Serum 0.58 mg/dL (0.55-1.02); EST Glomerular Filtration Rate 108 mL/min (>60); Est Glom Filt Rate - Afr Amer 131 mL/min (>60); Glucose 77 mg/dL (74-106); Potassium 3.7 mmol/L (3.5-5.1); Sodium Level 140 mmol/L (136-145)
[2024-10-12 14:09] LABS: Pathologist Review Reviewed
== END | disposition home or self-care (01) ==
PROVIDERS: PCP Family Medicine
DX: M25.561 Pain in right knee (principal); I10 Essential (primary) hypertension; U09.9 Post COVID-19 condition, unspecified; T84.84XA Pain due to internal orthopedic prosthetic devices, implants and grafts, initial encounter
CPT/HCPCS: 36415; 80048; 85025; 85652; 86140

== ENCOUNTER → 2024-10-11 | Outpatient (CLI) | payer MEDICARE, OTHER, SELFPAY ==
--- NOTE | 2024-10-11 12:34 | VDLE_ITS ---
Reason For Study: Swelling RIGHT LEFT GSV is normal. CFV is compressible, spontaneous, phasic, CFV is compressible, spontaneous, phasic, competent, and demonstrates normal competent and demonstrates normal augmentation. augmentation. FV is compressible, spontaneous, phasic, competent and demonstrates normal augmentation. POP V is compressible, spontaneous, phasic, competent and demonstrates normal augmentation. T/P Trunk is compressible. PTV is compressible. RT PerV is compressible. Procedure This is a venous duplex using B-mode, color flow and spectral Doppler. Exam performed in department. A preliminary report was called and/or faxed to Michi Ritter NP. VL/Venous Duplex US, Unilateral Interpretation Summary Deep veins of the right lower extremity are patent and compressible segmentally . There is no evidence of right lower extremity deep vein thrombosis. The right great sapheno us vein appears patent and compressible segmentally. Ordering Physician: Michi Ritter Referring Physician: Damian Craig MD Performed By: Lucero Smith RVT and Student
== END | disposition home or self-care (01) ==
PROVIDERS: PCP Family Medicine
DX: M79.604 Pain in right leg (principal); M79.89 Other specified soft tissue disorders
CPT/HCPCS: 93971

== ENCOUNTER → 2024-10-12 | Outpatient (CLI) | payer MEDICARE, OTHER, SELFPAY ==
[2024-10-12 12:15] LABS: Synovial Fld Mononuclear WBC # 1.663 10^3/ul; Synovial Fld Polynuclear WBC # 4.278 10^3/uL
[2024-10-12 15:08] LABS: AUTO B FLUID DILUENT BKGD CT WBC <0.1 RBC <0.01 (W<.1,R<.01); Appearance /Synovial Fluid Purulent (CLEAR); Color / Synovial Fluid Yellow (Pale Yellow)
[2024-10-12 15:12] LABS: Source / Synovial Fluid RIGHT KNEE
[2024-10-12 15:16] LABS: Lymph 2 %; Monocyte /Synovial Fluid 8 %; Neutrophil 90 % (0-25)
[2024-10-12 15:17] LABS: Body Fluid QC Type(s) 42880413
[2024-10-12 16:45] LABS: Magnesium 2.4 mg/dL (1.6-2.6)
[2024-10-13 09:59] LABS: Pathologist Comment Reviewed
== END | disposition home or self-care (01) ==
LOC: LAB 10:33 → LABSPEC 12:02
PROVIDERS: Anesthesiology; PCP Family Medicine; Referring Provider Specialist; Visit Provider Specialist
DX: I10 Essential (primary) hypertension (principal); T84.84XA Pain due to internal orthopedic prosthetic devices, implants and grafts, initial encounter; Z96.651 Presence of right artificial knee joint
CPT/HCPCS: 83735; 87015; 87070; 87075; 87077; 87101; 87116; 87186; 87205; 87206; 89050; 89051

== ENCOUNTER 2024-10-13 11:41 | Inpatient (IN) | payer MEDICARE, OTHER, SELFPAY ==
--- NOTE | 2024-10-12 15:37 | PAT.ANE_ITS ---
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 When Was Last Pacemaker Check QUESTION #4 FULL TEXT: You/Your Family Experience fever (hyperthermia) with Anesthesia Last Oral Intake Last Oral intake: Last Oral Intake NPO since Meds taken in AM with sips of water? Meds patient instructed to take am of surgery PONV PONV - industrial robotics mechanic: PONV - industrial robotics mechanic Female Yes 10/12/24 14:22 HX of Motion Sickness Yes 10/12/24 14:22 HX of N/V After Surgery No 10/12/24 14:22 Non-Smoker Yes 10/12/24 14:22 Duration of Surgery greater Yes 10/12/24 14:22 than 60 minutes Number of Risk Factors 4 10/12/24 14:22 PONV Score Severe Risk 10/12/24 14:22 Height & Weight Height & Weight: Anesthesia: Height & Weight Height 5 ft 3 in 10/12/24 15:18 Weight: 89.811 kg 10/12/24 15:18 Respiratory Assessment Respiratory Assessment - industrial robotics mechanic: Respiratory Tract Infection Hx - industrial robotics mechanic Hx Respiratory Tract Infection Yes: 10/05/24 COVID + NO 10/12/24 14:22 SYMPTOMS SINCE 10/06/24 STOP Sleep Apnea STOP Sleep Apnea - industrial robotics mechanic: STOP Sleep Apnea - industrial robotics mechanic Hx Hypertension Yes: CONTROLLED WITH MED 10/12/24 14:22 Hx Sleep Apnea No 10/12/24 14:22 CPAP No 05/08/21 13:20 BIPAP Do you snore loudly (louder No 10/12/24 14:22 than talking or can be heard Do you often feel tired/ No 10/12/24 14:22 fatigued/ sleepy during daytime? Has anyone observed you stop No 10/12/24 14:22 breathing during sleep? STOP Results Negative 10/12/24 14:22 QUESTION #5 FULL TEXT : Do you snore loudly (louder than talking or can be h eard through closed doors)? Tobacco Use History Tobacco Use History - industrial robotics mechanic: Tobacco Use History - industrial robotics mechanic Tobacco Use Non-smoker 02/26/21 09:17 Smoking Status Former smoker 10/12/24 14:22 Hx Tobacco Use No 10/12/24 14:22 Years Smoking Packs Smoked per Day Smoking Cessation Date was No - quit smoking greater 10/12/24 14:22 within the last 15 years than 15 years ago Hx Smoking Cessation Date Hx Smoking Cessation No 10/12/24 14:22 Counseling Hematologic Medial History Hematologic Hx - industrial robotics mechanic: Hematologic Medical Hx - mill operator helper Hx of Blood Transfusion No 10/12/24 14:22 Hx of Transfusion in last 3 No 10/12/24 14:22 Months Date of Last Transfusion (if within last 3 months) Ever experience any problems No 10/12/24 14:22 with transfusion(s)? Specify any problems Hx of Preganancy in last 3 No 10/12/24 14:22 Months Nurse Filling Out Transfusion DSCHRIBER 10/12/24 14:22 & Questions: Date: 10/12/24 10/12/24 14:22 Time: 14:24 10/12/24 14:22 Patient unable to answer at this time (ie. confused, unrespo /Reproduction History /Reproductive History - industrial robotics mechanic: /Reproductive Hx- industrial robotics mechanic Hx Now No 10/12/24 14:22 Gestational Age (in weeks): EDC: Hx Hx Para Hx Section SAB No 10/12/24 14:22 Active Medications Active Medications: Current Medications Generic Name Dose Route Start Last Admin Trade Name Freq PRN Reason Stop Dose Admin Acetaminophen 1,000 mg 10/13/24 12:30 Acetaminophen 500 Mg Tablet PO 10/13/24 12:31 X1 ONE Tranexamic Acid 2,000 mg/ 0 mg 10/13/24 12:30 Sodium Chloride 100 ml OPERA.SITE 10/13/24 12:31 X1 ONE Gabapentin 600 mg 10/13/24 12:30 Gabapentin 600 Mg Tablet PO 10/13/24 12:31 X1 ONE Cefazolin Sodium 2 gm/ N/A 20 mls @ 400 mls/hr 10/13/24 12:30 IV 10/13/24 12:32 PREOP ONE Vancomycin HCl 1,250 mg/ 275 mls @ 167 mls/hr 10/13/24 12:30 Sodium Chloride IV 10/13/24 14:08 PREOP ONE Lactated Ringer's 1,000 mls @ 125 mls/hr 10/13/24 12:30 IV 10/13/24 20:29 .Q8H MAXIMUS Insulin Human Lispro 1 - 6 unit 10/13/24 12:30 Insulin Lispro 100 Unit/Ml Insuln.Pen SC Q4H PRN PRN BG>/= 180, SEE PROTOCOL [facility] Medical History (Updated 10/12/24 @ 14:33 by Monica Mercer) Loss of hearing History of steroid therapy Uses wheelchair Walker as ambulation aid Bladder disease Heartburn History of edema History of stress test History of echocardiogram Cardiology follow-up encounter Essential hypertension Other acute postprocedural pain Wears glasses Arthritis Migraine headache Former smoker History of pain when walking Anticoagulant long-term use Paroxysmal atrial fibrillation Anxiety Obesity Paroxysmal supraventricular tachycardia Dizziness Palpitations Uterovaginal prolapse, incomplete Home Medications ?Medication ?Instructions ?Recorded ?Last Taken ?Type acetaminophen 500 mg tablet 1,000 mg PO Q8 PRN pain 07/23/22 Unknown History ascorbic acid (vitamin C) 500 mg 500 mg PO QAM osteoporosis 05/31/24 Unknown History tablet (Vitamin C) cholecalciferol (vitamin D3) 25 25 mcg PO QDAY SUPPLEMENT 05/31/24 Unknown History mcg (1,000 unit) tablet apixaban 5 mg tablet (Eliquis) 5 mg PO BID BLOOD THINNER #180 tabs 08/26/24 10/12/24 Rx buspirone 5 mg tablet 7.5 mg PO BID ANXIETY 10/03/24 Unknown History calcium citrate 200 mg PO BID SUPPLEMENT 10/03/24 Unknown History magnesium oxide 400 mg (241.3 mg 400 mg PO QHS SUPPLEMENT 10/03/24 Unknown History magnesium) tablet diltiazem HCl 120 mg 120 mg PO QHS BP 10/12/24 Unknown History capsule,extended release 24 hr, controlled famotidine 20 mg tablet 20 mg PO PRN PRN GERD 10/12/24 Unknown History tramadol 50 mg tablet 50 mg PO BID PRN pain 10/12/24 Unknown History Allergy/AdvReac Type Severity Reaction Status Date / Time metoprolol AdvReac Mild Nausea Verified 10/12/24 14:15 flecainide AdvReac nausea Verified 10/12/24 14:15 Family History Mother CAD (coronary artery disease) Myocardial infarction, Onset Age: 80 Father Asthma COPD (chronic obstructive pulmonary disease) Brother Colon cancer COPD (chronic obstructive pulmonary disease) Former smoker Grandmother Breast cancer Grandfather Colon cancer Surgical History (Updated 10/12/24 @ 14:33 by Monica Mercer) History of knee replacement (02/18/24) History of total hip arthroplasty (05/08/21) Hx of total hip arthroplasty History of esophagogastroduodenoscopy (EGD) Hx of colonoscopy History of bladder suspension procedure (2017) H/O total hysterectomy (2017) Social History Smoking Status: Former smoker how long ago did patient quit smokin years ago alcohol intake: never substance use type: does not use caffeine: Yes Type: coffee Number of servings: 2 Audit: Pertinent Findings Pertinent Findings EKG Perinent findings: 10/03/2024 normal sinus rhythm 99 bpm normal EKG Stress test pertinent findings: 12/22/2023 ejection fraction 39% normal perfusion stress test mildly reduced ejection fraction Echo (EF%) pertinent findings: 02/01/2024 normal size normal function EF 60% Consult pertinent findings: Cardiology 05/31/2024 hypertension continue current medical therapy paroxysmal atrial fibrillation chronic EKG today 05/31/2024 shows sinus tachycardia Recommendation Anesthesia Recommendation Anesthesia recommendation: OPTIMIZED for anesthesia
[2024-10-13] VITALS (11 sets, daily range): BP systolic 120–148; BP diastolic 50–75; PULSE 86–116; RESP 16–18; TEMP 36.1–37.4; O2SAT 92–99; BMI 37.5
[2024-10-13] MEDS: 0.9% Normal Saline (1000mL) 1,000 ML 15 ML IV (12:31)
[2024-10-13] MEDS: Vancomycin HCl 1,250 MG in 0.9% Normal Saline (250mL Bag) 250 ML 167 MG IV (12:31)
[2024-10-13] MEDS: Magnesium 1 GM over 15 mins IV (12:31)
[2024-10-13] MEDS: Acetaminophen 500 MG Tablet 1000 MG PO ×2 (12:32→22:29)
[2024-10-13] MEDS: Gabapentin 600 MG Tablet PO (12:32)
--- NOTE | 2024-10-13 13:23 | PCM.PRE.AN2 ---
ASA Classification* ASA Classification ASA Classification: 3 Assessment & Plan Anesthesia* Anesthesia Assessment Anesthesia Assessment: Discussed sedation and/or anesthesia options, risks, benefits, and alternatives with patient/parents/legal guardian/POA. Questions invited. The patient/parents/legal guardian/POA seems to understand and agrees to proceed with anesthesia plan. Reviewed the physical assessment, medical history, allergy history and patient home medications list prior to surgery/procedure/anesthetic and documented any changes. Performed airway and anesthesia risk assessments. Anesthesia Type Anesthesia Type: General (Eliquis 48 hours ago) and Block Anesthesia Focused Assessment* Temperature: 99.4 F Pulse Rate: 116 Blood Pressure: 128/58 Respiratory Rate: 16 Pulse Ox: 96 Airway Assessment Mouth opens: >3 cm Mallampati Score: II Focused Labs Anesthesia Preop lab: CBC WBC 11.5 K/mm3 (4.4-11.0) H 10/11/24 12:09 RBC 4.47 M/mm3 (4.2-5.4) 10/11/24 12:09 Hgb 13.0 g/dL (12.0-15.0) 10/11/24 12:09 Hct 41.3 % (37-47) 10/11/24 12:09 Plt Count 345 K/mm3 (150-450) 10/11/24 12:09 CHEMISTRY Potassium 3.7 mmol/L (3.5-5.1) 10/11/24 12:09 Sodium 140 mmol/L (136-145) 10/11/24 12:09 Magnesium 2.4 mg/dL (1.6-2.6) 10/11/24 12:09 BUN 24 mg/dL (7-18) H 10/11/24 12:09 Creatinine 0.58 mg/dL (0.55-1.02) 10/11/24 12:09 Glucose 77 mg/dL (74-106) 10/11/24 12:09 POC Glucose 63 mg/dL (70-110) L 05/08/21 09:13 TSH 1.72 uIU/mL (0.358-3.74) 04/08/24 12:45 COAG PT 16.7 SECONDS (11.7-14.9) H 10/05/24 09:15 Pre-Assessment Diagnosis/Proposed Procedure Planned Operative Procedure(s): RIGHT KNEE OPEN I&D COMPLETE SYNOVECTOMY AND POLY EXCHANGE Anesthesia History 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 When Was Last Pacemaker Check QUESTION #4 FULL TEXT: You/Your Family Experience fever (hyperthermia) with Anesthesia Last Oral Intake Last Oral intake: Last Oral Intake NPO since 08:00 10/13/24 12:25 Meds taken in AM with sips of Yes 10/13/24 12:25 water? Meds patient instructed to cardizem 10/13/24 12:25 take am of surgery PONV PONV - technician automated equipment: PONV - technician automated equipment Female Yes 10/12/24 14:22 HX of Motion Sickness Yes 10/12/24 14:22 HX of N/V After Surgery No 10/12/24 14:22 Non-Smoker Yes 10/12/24 14:22 Duration of Surgery greater Yes 10/12/24 14:22 than 60 minutes Number of Risk Factors 4 10/12/24 14:22 PONV Score Severe Risk 10/12/24 14:22 Height & Weight Height & Weight: Anesthesia: Height & Weight Height 5 ft 3 in 10/13/24 12:25 Weight: 96 kg 10/13/24 12:25 Body Mass Index (BMI) 37.5 10/13/24 12:25 Respiratory Assessment Respiratory Assessment - technician automated equipment: Respiratory Tract Infection Hx - technician automated equipment Hx Respiratory Tract Infection Yes: 10/05/24 COVID + NO 10/12/24 14:22 SYMPTOMS SINCE 10/06/24 STOP Sleep Apnea STOP Sleep Apnea - technician automated equipment: STOP Sleep Apnea - technician automated equipment Hx Hypertension Yes: CONTROLLED WITH MED 10/12/24 14:22 Hx Sleep Apnea No 10/12/24 14:22 CPAP No 05/08/21 13:20 BIPAP Do you snore loudly (louder No 10/12/24 14:22 than talking or can be heard Do you often feel tired/ No 10/12/24 14:22 fatigued/ sleepy during daytime? Has anyone observed you stop No 10/12/24 14:22 breathing during sleep? STOP Results Negative 10/12/24 14:22 QUESTION #5 FULL TEXT : Do you snore loudly (louder than talking or can be heard through closed doors)? Tobacco Use History Tobacco Use History - technician automated equipment: Tobacco Use History - technician automated equipment Tobacco Use Non-smoker 02/26/21 09:17 Smoking Status Former smoker 10/12/24 14:22 Hx Tobacco Use No 10/12/24 14:22 Years Smoking Packs Smoked per Day Smoking Cessation Date was No - quit smoking greater 10/12/24 14:22 within the last 15 years than 15 years ago Hx Smoking Cessation Date Hx Smoking Cessation No 10/12/24 14:22 Counseling Hematologic Medial History Hematologic Hx - technician automated equipment: Hematologic Medical Hx - care management associate Hx of Blood Transfusion No 10/12/24 14:22 Hx of Transfusion in last 3 No 10/12/24 14:22 Months Date of Last Transfusion (if within last 3 months) Ever experience any problems No 10/12/24 14:22 with transfusion(s)? Specify any problems Hx of Preganancy in last 3 No 10/12/24 14:22 Months Nurse Filling Out Transfusion DSCHRIBER 10/12/24 14:22 & Questions: Date: 10/12/24 10/12/24 14:22 Time: 14:24 10/12/24 14:22 Patient unable to answer at this time (ie. confused, unrespo /Reproduction History /Reproductive History - technician automated equipment: /Reproductive Hx- technician automated equipment Hx Now No 10/12/24 14:22 Gestational Age (in weeks): EDC: Hx Hx Para Hx Section SAB No 10/12/24 14:22 Active Medications Active Medications: Current Medications Generic Name Dose Route Start Last Admin Trade Name Freq PRN Reason Stop Dose Admin Vancomycin HCl 1,250 mg/ 275 mls @ 167 mls/hr 10/13/24 12:30 10/13/24 12:31 Sodium Chloride IV 10/13/24 14:08 167 mls/hr PREOP ONE Administration Lactated Ringer's 1,000 mls @ 125 mls/hr 10/13/24 12:30 IV 10/13/24 20:29 .Q8H MAXIMUS Sodium Chloride 1,000 mls @ 15 mls/hr 10/13/24 11:55 10/13/24 12:31 IV 10/19/24 01:14 15 mls/hr .Q48H MAXIMUS Administration Protocol Insulin Human Lispro 1 - 6 unit 10/13/24 12:30 Insulin Lispro 100 Unit/Ml Insuln.Pen SC Q4H PRN PRN BG>/= 180, SEE PROTOCOL Protocol PFSH Medical History Loss of hearing History of steroid therapy Uses wheelchair Walker as ambulation aid Bladder disease Heartburn History of edema History of stress test History of echocardiogram Cardiology follow-up encounter Essential hypertension Other acute postprocedural pain Wears glasses Arthritis Migraine headache Former smoker History of pain when walking Anticoagulant long-term use Paroxysmal atrial fibrillation Anxiety Obesity Paroxysmal supraventricular tachycardia Dizziness Palpitations Uterovaginal prolapse, incomplete Home Medications ?Medication ?Instructions ?Recorded ?Last Taken ?Type acetaminophen 500 mg tablet 1,000 mg PO Q8 PRN pain 07/23/22 10/13/24 01:00 History ascorbic acid (vitamin C) 500 mg 500 mg PO QAM osteoporosis 05/31/24 Unknown History tablet (Vitamin C) cholecalciferol (vitamin D3) 25 25 mcg PO QDAY SUPPLEMENT 05/31/24 10/12/24 History mcg (1,000 unit) tablet apixaban 5 mg tablet (Eliquis) 5 mg PO BID BLOOD THINNER #180 tabs 08/26/24 10/12/24 Rx buspirone 5 mg tablet 7.5 mg PO BID ANXIETY 10/03/24 10/13/24 History calcium citrate 200 mg PO BID SUPPLEMENT 10/03/24 10/12/24 History magnesium oxide 400 mg (241.3 mg 400 mg PO QHS SUPPLEMENT 10/03/24 Unknown History magnesium) tablet diltiazem HCl 120 mg 120 mg PO QHS BP 10/12/24 10/12/24 History capsule,extended release 24 hr, controlled famotidine 20 mg tablet 20 mg PO PRN PRN GERD 10/12/24 Unknown History tramadol 50 mg tablet 50 mg PO BID PRN pain 10/12/24 10/13/24 01:00 History Allergy/AdvReac Type Severity Reaction Status Date / Time metoprolol AdvReac Mild Nausea Verified 10/13/24 12:19 flecainide AdvReac nausea Verified 10/13/24 12:19 Family History Mother CAD (coronary artery disease) Myocardial infarction, Onset Age: 80 Father Asthma COPD (chronic obstructive pulmonary disease) Brother Colon cancer COPD (chronic obstructive pulmonary disease) Former smoker Grandmother Breast cancer Grandfather Colon cancer Surgical History History of knee replacement (02/18/24) History of total hip arthroplasty (05/08/21) Hx of total hip arthroplasty History of esophagogastroduodenoscopy (EGD) Hx of colonoscopy History of bladder suspension procedure (2017) H/O total hysterectomy (2017) Social History Smoking Status: Former smoker how long ago did patient quit smokin years ago alcohol intake: never substance use type: does not use caffeine: Yes Type: coffee Number of servings: 2 Review of Systems (Anesthesia) ROS Narrative System reviewed and no additional complaints, except as documented.
[2024-10-13 15:05] LABS: Bedside Glucose 85 mg/dL (74-106)
[2024-10-13] MEDS: Cefazolin 2 GM in Syringe 10 ML IV (15:09)
--- NOTE | 2024-10-13 16:25 | PCM.OPRPT ---
Operative Report (Standard) Operative Information Date of Procedure: 10/13/24 Pre-Operative Diagnosis: Right knee acute periprosthetic joint infection Post-Operative Diagnosis: Right knee acute periprosthetic joint infection Surgery/Procedure Performed: Irrigation debridement, complete synovectomy and polyethylene exchange right knee city distribution clerk: Yes Engineering Inspection Assistant: Amilcar Michaud Tasks completed by public aid eligibility assistant: Other (See operative report) Additional benefits assistant?: No Type of Anesthesia: General RN Documented Start/Stop Times: Operation Date: 10/13/24 14:30 Case Time Into Pre-Op 10/13/24 11:52 Out of Pre-Op 10/13/24 15:08 Anesthesia Start 10/13/24 15:09 Into Room 10/13/24 15:09 Procedure Start 10/13/24 15:35 Procedure End 10/13/24 17:30 Anesthesia End 10/13/24 17:37 Out of Room 10/13/24 17:37 Into Recovery 10/13/24 17:40 Out of Recovery 10/13/24 18:46 Procedure Start Time: 15:35 Procedure Stop Time: 17:30 Select all DRAINS/GRAFTS/IMPLANTS that apply: Prosthetic device Prosthetic device details: Jass X3 size 4 polyethylene 9 mm thickness Special Medications: Ancef and vancomycin Estimated Blood Loss: 750 mL Fluids Replaced: 1000 mL Specimen collected: Yes Description of specimen(s) removed: 3 separate specimens were sent to microbiology Description of surgery: 74 yo f history of R TKA in presents with acute pyogenic right total knee infection. Reviewed options were discussed the patient. Based on acuity of the symptoms and organism irrigation debridement with polyethylene exchange is recommended. Risks and benefits of the procedure were discussed with the patient including but not limited to blood loss, DVTs, PEs, neurovascular damage, infection, general risk of anesthesia including loss of life. Demonstrated understanding and was able to sign informed consent. On the date of procedure patient's R lower extremity was marked in the preoperative area. The patient was then taken back to the operating room where the patient was placed on the table in the supine position. All bony prominences were identified a well-padded. Anesthesia assumed control of the C-spine and airway and remained controlled throughout the remainder of the procedure. A tourniquet was placed on the operative thigh and the leg was prepped in a sterile fashion. The surgeon then scrubbed at this time .Upon reentering the room left lower extremity was draped in a standard orthopedic fashion. A timeout was then called and everyone agreed upon the side, the site, the procedure to be performed, patient's identity and antibiotics given. A midline skin incision was made and sharp dissection was taken down through skin subcutaneous tissue and fat. Appropriate flaps were elevated medially and laterally. His arthrotomy was identified and the standard medial parapatellar incision was made and the patella was subluxed laterally. The standard deep MCL release was done. At this point an aggressive synovectomy commenced. Our attention was first turned towards the subpatellar pouch and all suspicious synovium and tissues were debrided. We then directed our attention towards medial lateral gutters were these tissues were aggressively debrided. Knee was then flexed up the polyethylene was removed. Once polyethylene was removed we did the remainder of the synovium in the medial and lateral gutters and along the lateral structures and MCL. We then debrided the posterior knee. Knee was flexed up and culture was taken from the femoral notch. And also there was a membrane beneath the tibial baseplate that was removed and sent for culture. He had completed our synovectomy and were happy with the joint. We then used a chlorahexadine scrub sponge and physically scrub the metal implants using a scrub sponge but nothing abrasive. We also scrubbed the remainder of the wound with chlorhexidine. 6 L of normal saline were then irrigated throughout the wound with low-pressure lavage and the wound was once again explored. All remaining tissue that was suspicious was seen in the wound was once again irrigated with normal saline. 10 mm polyethylene was then opened and put back into place after appropriate trialing. Tourniquet was let down and hemostasis was obtained as well as possible. Lateral drain was placed in 2 g of vancomycin powder were placed in the wound/joint. Once the final components were placed the wound was copiously irrigated with normal saline solution. The wound was closed in a layer fulton fashion using #1 vicryl interrupted sutures for the arthrotomy, 2-0 interrupted Vicryl for the subcuticular layer and isabella for final skin closure. A sterile compressive dressing was then placed. The patient was then awakened from anesthesia, transferred to the [facility] and transferred to the PACU for recovery. Post op plan Infectious ease will be consulted. Patient be placed on Ancef based on preoperative cultures until infectious disease can review the case. Patient be weightbearing as tolerated. Range of motion as tolerated. Resume Eliquis tomorrow for DVT prophylaxis. My physician benefits assistant was a vital part of this case, they was important because there was not another skilled set of hands available to their training and aptitude needed for safe and appropriate completion of this case. They were important in appropriate retraction during the case, and protection of soft tissues during bony cuts. In particular the experience and skill of this benefits assistant made for safe retraction and exposure during implantation of medical implants without damage or fracture to vital soft tissues or structures. His intimate knowledge of the case and my steps aided in safe and expedient completion of the procedure as well as appropriate position of the leg during the case. He was also vital in assisting with closure and placement of the dressing under my direct supervision. Surgical Findings: Gross purulence encountered with synovial fluid. Significant synovial hypertrophy and inflammation. Complications Complications: No Admit VTE Documentation VTE Present on Admission: No VTE Mechan Device Prophylaxis: SCD's and Thigh High MARILYN Hose VTE Pharm Prophylaxis ordered?: Yes
[2024-10-13] MEDS: TRANEXAMIC ACID 2,000 MG, 0.9% Normal Saline (100mL Bag) 100 ML OPERA.SITE (16:40)
[2024-10-13] MEDS: Lactated Ringers 1,000 ML 125 ML IV (17:20)
--- NOTE | 2024-10-13 17:39 | PCM.POST.ANE ---
Anesthesia: Postop Eval I Current Vital Signs Temperature: 97 F Pulse Rate: 103 Blood Pressure: 148/61 Respiratory Rate: 16 Pulse Ox: 92 Oxygen Delivery Method: Nasal Cannula Oxygen Flow Rate (L/min): 2 Assessment Airway patent: Yes Spontaneous unlabored respirations: Yes Mental status: Awake and Calm nausea: No Vomiting: No Anesthesia Complication: No Fluid Hydration Crystalloid volume administer (ml): 1,200 Total IV fluid infused: 1,200 Progress Note Anesthesia document: Postop Eval 1 completed: Yes
--- NOTE | 2024-10-13 17:40 | POSTOPAN2_ITS ---
Anesthesia Postop Eval I Sum Postop Eval Completion status Anesthesia document: Postop Eval 1 completed: Yes Anesthesia Postop Eval I Summary Anesthesia Postop Eval I Summary: Anesthesia Postop Eval I: Assessment Summary Airway patent Yes 10/13/24 17:40 GREEN MATERIAL VALUE ADDED ASSESSOR.MDOT Spontaneous unlabored Yes 10/13/24 17:40 GREEN MATERIAL VALUE ADDED ASSESSOR.MDOT respirations Mental status Awake,Calm 10/13/24 17:40 GREEN MATERIAL VALUE ADDED ASSESSOR.MDOT nausea No 10/13/24 17:40 GREEN MATERIAL VALUE ADDED ASSESSOR.MDOT Vomiting No 10/13/24 17:40 GREEN MATERIAL VALUE ADDED ASSESSOR.MDOT Anesthesia Postop Eval I: Fluid Summary Crystalloid volume administer 1,200 10/13/24 17:40 GREEN MATERIAL VALUE ADDED ASSESSOR.MDOT (ml) Colloids volume administered ( ml) Blood Product volume administered (ml) Total IV fluid infused 1,200 10/13/24 17:40 GREEN MATERIAL VALUE ADDED ASSESSOR.MDOT Anesthesia Postop Eval I: Summary Notes Anesthesia Complication No 10/13/24 17:40 GREEN MATERIAL VALUE ADDED ASSESSOR.MDOT Anesthesia Complication Comment: Post-operative progress note Anesthesia: Postop Eval II Evaluation Mental status: Awake and Calm Pain Level: 4 nausea: No Vomiting: No Complications Anesthesia Complication: No
--- NOTE | 2024-10-13 17:40 | PCM.POSTANE2 ---
Anesthesia Postop Eval I Sum Postop Eval Completion status Anesthesia document: Postop Eval 1 completed: Yes Anesthesia Postop Eval I Summary Anesthesia Postop Eval I Summary: Anesthesia Postop Eval I: Assessment Summary Airway patent Yes 10/13/24 17:40 CREW CHIEF.MDOT Spontaneous unlabored Yes 10/13/24 17:40 CREW CHIEF.MDOT respirations Mental status Awake,Calm 10/13/24 17:40 CREW CHIEF.MDOT nausea No 10/13/24 17:40 CREW CHIEF.MDOT Vomiting No 10/13/24 17:40 CREW CHIEF.MDOT Anesthesia Postop Eval I: Fluid Summary Crystalloid volume administer 1,200 10/13/24 17:40 CREW CHIEF.MDOT (ml) Colloids volume administered ( ml) Blood Product volume administered (ml) Total IV fluid infused 1,200 10/13/24 17:40 CREW CHIEF.MDOT Anesthesia Postop Eval I: Summary Notes Anesthesia Complication No 10/13/24 17:40 CREW CHIEF.MDOT Anesthesia Complication Comment: Post-operative progress note Anesthesia: Postop Eval II Evaluation Mental status: Awake and Calm Pain Level: 4 nausea: No Vomiting: No Complications Anesthesia Complication: No
--- NOTE | 2024-10-13 17:45 | RAD_ITS ---
EXAM: XR RIGHT KNEE, 1 OR 2 VIEWS CLINICAL INDICATION: post op -- AP and Lateral xray of operative knee in PACU TECHNIQUE: Frontal and/or lateral views of the right knee. COMPARISON: No relevant prior studies available. FINDINGS: New total knee arthroplasty. No hardware complications, acute fracture or malalignment. Extensive soft tissue air and gas. Surgical drain projects over the knee. RAD/Knee 1 or 2 Views IMPRESSION: No unexpected postsurgical findings. Electronically Signed: Tadeo Jones MD at 18:53 EST ,
--- NOTE | 2024-10-13 20:22 | CON.PCM.HO_ITS ---
Assessment & Plan Assessment/Plan (1) Infection of prosthetic right knee joint: PLAN: Plan Patient is a 74-year-old female who presented to [facility] on 10/13/2024 for procedure for right knee prosthetic joint infection. Medicine consulted postoperatively for medical management. 1. Right knee prosthetic joint infection ? Orthopedic surgery primary. ID consulted. Initial right knee replacement in February 2024. Presented with worsening pain and early October. Synovial fluid on 10/12 from joint tap showed purulent fluid and WBC count 118,000. S/p right knee debridement with irrigation, complete synovectomy and polyethylene exchange of right knee with Dr. Velásquez on 10/13. Initial joint fluid cultures from 10/12 growing group G strep. Given dose of vancomycin intraoperatively and treating with IV Ancef for now, appreciate ID recs. Pain management per orthopedics. PT/OT/case management consulted. Follow-up a.m. labs. 2. Recent COVID diagnosis ? Presented to the ED on 10/05 not feeling well. Found to be COVID-positive. Chest x-ray was unremarkable and patient was stable on room air. No need for steroids or remdesivir, was managed symptomatically. Patient with mild postoperative hypoxia though notably has been satting in the mid to high 90s on 2 to 4 L nasal cannula, appears to be on oxygen more for comfort. Continue isolation precautions through 10/14. Continue symptomatic management. 3. Paroxysmal A-fib ? Follows with [place] cardiology. In normal sinus rhythm postoperatively. Continue home Eliquis and diltiazem. 4. Hypertension ? Mildly hypertensive postoperatively. Continue home diltiazem. 5. Anxiety ? Stable. Continue home BuSpar. 6. Class II obesity ? BMI 37 on admit. Complicates hospital course, care and prognosis. DVT prophylaxis: Not indicated, on therapeutic Eliquis Total clinical time spent by myself addressing the patient's medical issues, reviewing all the data, and collaborating with patient's care team: 35 minutes. HPI Consult Data Date of Consult: 10/14/24 HPI Narrative Reason for Consultation: Postoperative medical management HPI Narrative: KRISTA TALAVERA, is a 74 F who presented to [facility] on 10/13/2024 for planned orthopedic procedure. Patient had right knee replacement done initially in February 2024. She recently developed pain in the right knee with swelling, and synovial fluid after joint tap on 10/12 with purulent and had 118,000 WBCs present. S/p right knee debridement with irrigation, complete synovectomy and polyethylene exchange of right knee with Dr. Velásquez on 10/13. Patient tolerated procedure well, no intraoperative complications. I saw the patient at bedside earlier this evening. Patient was sleeping on my arrival to the room. On awakening, patient appeared comfortable and was conversing normally. She reported mild right knee pain currently, otherwise denied any acute concerns. Denied any fevers or chills. No other concerns at this time. [facility] Medical History Loss of hearing History of steroid therapy Uses wheelchair Walker as ambulation aid Bladder disease Heartburn History of edema History of stress test History of echocardiogram Cardiology follow-up encounter Essential hypertension Other acute postprocedural pain Wears glasses Arthritis Migraine headache Former smoker History of pain when walking Anticoagulant long-term use Paroxysmal atrial fibrillation Anxiety Obesity Paroxysmal supraventricular tachycardia Dizziness Palpitations Uterovaginal prolapse, incomplete Home Medications ?Medication ?Instructions ?Recorded ?Last Taken ?Type acetaminophen 500 mg tablet 1,000 mg PO Q8 PRN pain 07/23/22 10/13/24 01:00 History ascorbic acid (vitamin C) 500 mg 500 mg PO QAM osteoporosis 05/31/24 Unknown History tablet (Vitamin C) cholecalciferol (vitamin D3) 25 25 mcg PO QDAY SUPPLEMENT 05/31/24 10/12/24 History mcg (1,000 unit) tablet apixaban 5 mg tablet (Eliquis) 5 mg PO BID BLOOD THINNER #180 tabs 08/26/24 10/12/24 Rx buspirone 5 mg tablet 7.5 mg PO BID ANXIETY 10/03/24 10/13/24 History calcium citrate 200 mg PO BID SUPPLEMENT 10/03/24 10/12/24 History magnesium oxide 400 mg (241.3 mg 400 mg PO QHS SUPPLEMENT 10/03/24 Unknown History magnesium) tablet diltiazem HCl 120 mg 120 mg PO QHS BP 10/12/24 10/12/24 History capsule,extended release 24 hr, controlled famotidine 20 mg tablet 20 mg PO PRN PRN GERD 10/12/24 Unknown History tramadol 50 mg tablet 50 mg PO BID PRN pain 10/12/24 10/13/24 01:00 History Allergy/AdvReac Type Severity Reaction Status Date / Time metoprolol AdvReac Mild Nausea Verified 10/13/24 12:19 flecainide AdvReac nausea Verified 10/13/24 12:19 Family History Mother CAD (coronary artery disease) Myocardial infarction, Onset Age: 80 Father Asthma COPD (chronic obstructive pulmonary disease) Brother Colon cancer COPD (chronic obstructive pulmonary disease) Former smoker Grandmother Breast cancer Grandfather Colon cancer Surgical History History of knee replacement (02/18/24) History of total hip arthroplasty (05/08/21) Hx of total hip arthroplasty History of esophagogastroduodenoscopy (EGD) Hx of colonoscopy History of bladder suspension procedure (2017) H/O total hysterectomy (2018) Social History Smoking Status: Former smoker how long ago did patient quit smokin years ago alcohol intake: never substance use type: does not use caffeine: Yes Type: coffee Number of servings: 2 ROS Constitutional Constitutional: Reports fatigue; Denies chills, fever(s) or weakness Cardiovascular Cardiovascular: Denies chest pain Respiratory/Chest Respiratory/Chest: Denies shortness of breath at rest Gastrointestinal Gastrointestinal: Denies abdominal pain Musculoskeletal Musculoskeletal: Reports joint pain Neurologic Neurologic: Denies dizziness or headache(s) Physical Exam Const alert, oriented x3 and no apparent distress Constitutional Narrative: Pleasant elderly female, class II obesity, mildly fatigued appearing but otherwise laying back comfortably in bed, conversing normally and in no acute distress. General Appearance: cooperative and comfortable HEENT normocephalic, head/scalp atraumatic, hearing grossly normal bilaterally, nasal mucous membranes and turbinates normal and moist oral mucous membranes Eyes PERRL, EOMs intact bilaterally and conjunctivae normal Neck full ROM Chest inspection of chest normal Resp normal respiratory effort, normal air movement, no use of accessory muscles and clear to auscultation bilaterally Cardio regular rate, regular rhythm, no murmurs and peripheral pulses 2+ throughout GI normal to inspection, nondistended, normoactive bowel sounds, soft to palpation, non-tender and non-distended Back/Spine normal ROM Extremity Extremity Narrative: Right knee with dressing and ice pack in place. Skin no rashes or lesions noted Psych mental status grossly normal Lab / Micro Data Labs: Laboratory Results - last 24 hr 10/13/24 12:25: POC Glucose 85 Imaging Radiology Impression Knee X-Ray 10/13/24 17:45 IMPRESSION: No unexpected postsurgical findings. Electronically Signed: Tadeo Jones MD at 18:53 EST , Charges/Coding Visit Charges Inpatient E&M: 54206 Subs Hosp L2
[2024-10-13] MEDS: Cefazolin 1 GM/50 ML BAG IV (22:27)
[2024-10-13] MEDS: dilTIAZem CD 120 MG Capsule PO (22:28)
[2024-10-13] MEDS: Magnesium Chloride 64 MG Delay Rel.Tablet 128 MG PO (22:29)
[2024-10-13] MEDS: busPIRone 5 MG Tablet 7.5 MG PO (22:29)
[2024-10-13] MEDS: Senna/Docusate Sodium 1 Tablet 2 TABLET PO (22:29)
[2024-10-14 01:13] VITALS: BP 149/76; PULSE 70; RESP 16; TEMP 36.4; O2SAT 99
[2024-10-14 01:20] VITALS: O2SAT 97
[2024-10-14 05:29] VITALS: BP 148/71; PULSE 80; RESP 16; TEMP 36.6; O2SAT 99
[2024-10-14] MEDS: Acetaminophen 500 MG Tablet 1000 MG PO ×3 (05:31→23:57)
[2024-10-14] MEDS: Cefazolin 1 GM/50 ML BAG IV (05:31)
--- NOTE | 2024-10-14 06:53 | PN.ORTHO_ITS ---
Subjective Subjective The patient was sitting in bed upon examination. Patient denies any chest pain, shortness of breath, dizziness, lightheadedness, nausea or vomiting, or calf pain. Pain is controlled on medications. No adverse overnight events. Case was discussed with nurse and states 140 mL was taken out of the Hemovac drain. Patient had a previous right total knee arthroplasty on February 18, 2024. Patient tested positive for COVID-19 on October 05, 2024. She started to develop right knee symptoms. Patient did have aspiration in the office by Dr. Elmo Velásquez which did reveal joint infection with streptococcal group G. Infectious disease has been consulted for recommendations on antibiotics. Patient states her pain has been controlled overnight. She does have incisional Prevena wound VAC in place. Patient was doing well with the right knee prior to the recent COVID-19. Patient has medical history pertinent for hypertension, paroxysmal atrial fibrillation, anxiety, and obesity. Objective Data Objective Data Vital Signs: Vital Signs Temp Pulse Resp BP Pulse Ox O2 Del Method O2 Flow Rate 98 F 80 16 148/71 H 99 Room Air 2 10/14/24 05:29 10/14/24 05:29 10/14/24 05:29 10/14/24 05:29 10/14/24 05:29 10/14/24 05:29 10/14/24 01:13 Oxygen Flow Rate (L/min) 2 Oxygen Delivery Method Room Air Weight: 96 kg Body Mass Index (BMI) 37.5 Intake & Output: Intake and Output for Last 24 Hours 10/12/24 10/13/24 10/14/24 23:59 23:59 23:59 Intake Total 1855.33 / 1855.33 Output Total 90 / 90 Balance 1765.33 / 1765.33 Lab / Micro Data Labs: Laboratory Results - last 24 hr 10/13/24 12:25: POC Glucose 85 Radiography Diagnostic Testing: Radiology Impression Knee X-Ray 10/13/24 17:45 IMPRESSION: No unexpected postsurgical findings. Electronically Signed: Tadeo Jones MD at 18:53 EST , Physical Exam Narrative Vital signs stable and afebrile. MARILYN hose and SCDs are in place bilaterally Patient is able to plantarflex and dorsiflex actively. Sensation is intact to light touch to saphenous, sural, superficial and deep peroneal, and tibial distribution. Prevena incisional wound VAC in place with no appreciable drainage or output and tubing/canister Hemovac drain was just emptied and patient has had 140 mL removed since surgery Negative Homans bilaterally, negative signs and symptoms of DVT. Const alert, oriented x3 and no apparent distress Assessment & Plan Assessment/Plan (1) Infection of prosthetic right knee joint: PLAN: 1. S/P irrigation debridement with complete synovectomy and polyethylene exchange right knee due to acute periprosthetic joint infection POD #1 2. Continue Pain Medications: Tylenol and oxycodone 3. DVT Prophylaxis: Patient will resume her Eliquis today in which she takes for atrial fibrillation. This will cover her for DVT prophylaxis. Patient denies past history of DVT or pulmonary embolism. 4. PT/OT: Weightbearing as tolerated with walker. Range of motion as tolerated. 5. H & H: Labs are not available yet, asymptomatic. Vitals have been stable. Currently on room air breathing in no distress 6. Infectious disease consultation: Microbiology is currently pending from intraoperative samples. Preoperatively patient did grow out Streptococcus group G. Currently on cefazolin until recommendations from infectious disease. Appreciate recommendations for antibiotics for discharge planning. 7. Hemovac drain: There has been 140 mL fluid removed overnight. Plan will be for removal prior to discharge when appropriate. 8. Continue Prevena incisional wound VAC: Plan will be to keep incisional wound VAC on for 1 week postoperatively with removal on October 20, 2024. Currently no output in canister or tubing 9. Encouraged Incentive Spirometry 10. Patient is aware of postoperative constipation that can occur from 1-3 days postoperatively. Will continue with senna 2 tablets twice daily until first bowel movement. Patient was advised if not having a bowel movement after day 3 she is to contact orthopedics so appropriate change can be made. Patient voiced understanding. 11. Continue postoperative medical treatment per medicine 12. Disposition: At this time patient is orthopedically stable. Awaiting recommendations from infectious disease for appropriate discharge planning for antibiotics. While in the hospital patient will continue to work with physical therapy in which she is weightbearing as tolerated and range of motion as tolerated. Continue above pain medications. She can resume the Eliquis today in which he takes for atrial fibrillation. Recommend ice and elevation. Case management will be involved for appropriate and safe discharge planning once final recommendations have been established. I have reviewed the [place] Automated Rx Reporting System (OARRS) report for this patient for refill pattern and other prescriber involvement as part of the appropriate surveillance for the provision of acute and chronic controlled medications. The report was requested and reviewed on the date of this entry and was considered in the prescribing process. This dictation was created using voice recognition software. Phonetic and/or grammatical errors may exist. (2) COVID-19:
[2024-10-14 07:19] LABS: Hematocrit 33.8 % (37-47); Mean Corp Hgb Conc 32.5 g/dL (32-36); Mean Corpuscular Hgb 29.8 pg (27.0-32.0); Mean Corpuscular Volume 91.6 fL (81-99); Mean Platelet Vol. 8.6 fl (6.2-12.0); Platelet Count 279 K/mm3 (150-450); RBC Distribution Width CV 12.5 % (11.6-14.6); RBC Distribution Width SD 41.9 fl (35.1-43.9); Red Blood Count 3.69 M/mm3 (4.2-5.4); White Blood Count 12.7 K/mm3 (4.4-11.0)
[2024-10-14 07:36] LABS: Anion Gap 3 (5-15); BUN 15 mg/dL (7-18); Calcium,Total 8.2 mg/dL (8.5-10.1); Chloride 107 mmol/L (98-107); Creatinine, Serum 0.43 mg/dL (0.55-1.02); EST Glomerular Filtration Rate 154 mL/min (>60); Est Glom Filt Rate - Afr Amer 186 mL/min (>60); Estimated Creatinine Clearance 70.08 ml/min; Glucose 109 mg/dL (74-106); Potassium 4.1 mmol/L (3.5-5.1); Sodium Level 138 mmol/L (136-145)
--- NOTE | 2024-10-14 08:54 | NURSING ---
SCOTT online ordering entered for child care specialist PICC line need. (spoke with [facility] sanitation truck cleaner and no one in radiology dept available to place PICC)
[2024-10-14 08:55] VITALS: BP 151/78; PULSE 79; RESP 16; TEMP 36.6; O2SAT 98
[2024-10-14] MEDS: oxyCODONE 5 MG Tablet PO ×2 (09:02→23:58)
[2024-10-14] MEDS: Senna/Docusate Sodium 1 Tablet 2 TABLET PO ×2 (09:02→23:57)
[2024-10-14] MEDS: Ascorbic Acid 500 MG Tablet PO (09:02)
[2024-10-14] MEDS: busPIRone 5 MG Tablet 7.5 MG PO ×2 (09:03→23:59)
[2024-10-14] MEDS: Cholecalciferol (VIT D3) 25 MCG TABLET (1,000 UNITS) PO (09:03)
[2024-10-14] MEDS: APIXABAN 5 MG TABLET PO ×2 (09:03→23:59)
--- NOTE | 2024-10-14 11:08 | CASEMGMT ---
Addendum entered by Annia Piedra 10/14/24 11:27: Pt does not have any therapy set up at this time post hospitalization. Original Note: TEENA SIMMS Assessment: Face to Face with pt for initial transition planning/care coordination assessment. RN DEMI introduced self and role at [facility], pt voices understanding and consents to assessment. Pt is A&O x4 and answers all questions appropriately at this time. Pt sitting up in chair in no distress with at bedside. Care providers, pharmacy, and demographics verified/updated. Admitting Dx: PJI Strata Score: 1 PCP:Rafa Specialists:khushi Velásquez; Amilcar, cardio [facility] Insurance: [employer], [employer] Prescription Benefit: yes LNOK: Gavin Singer, Living Arrangements: Pt lives with in a single story home with a ramp to enter. Pt reports prior to surgery she was I in ADLs/IADLs. Pt denies concerns at home. Transportation: Pt drives self and denies concerns with transportation. Pt will transport pt until pt can drive again. DME:w/c, scooter, rollator, walker, toilet riser, shower bench HHC/SNF: Denies hx of Pt states no concerns with going home at time of dc. Discussed with pt the different options should she need IV atb at [place]. Pt states her dtr lives beside her and is a PHARMACIST CRITICAL CARE at [place]. She states she feels she could do IV atb if needed or she would be willing to come in daily to the [facility] Infusion Center if need be. ID is c/s. TEENA SIMMS to follow. Pt states no further concerns/needs. Advised pt to ask CM if any further questions/concerns/needs arise, voices understanding. Pt Goal: Home, pt to discuss with family options should she need IV atb Plan: BONG Correa RN, CM
[2024-10-14] MEDS: 0.9% Saline Lock 10 ML Syringe IV (12:27)
[2024-10-14] MEDS: Ceftriaxone 2 GM in 0.9% Normal Saline (50mL MB+) 50 ML IV (12:28)
--- NOTE | 2024-10-14 12:54 | CASEMGMT ---
Addendum entered by Annia Piedra 10/14/24 16:16: Sent [facility] the ID c/s and picc insertion via careport. Addendum entered by Annia Piedra 10/14/24 16:14: Met with pt dtr, she states that pt has chosen 1. [facility] 2. [facility] 3. [facility] 4. [facility]. She can be available on Thursday by 2:30p-3p to learn administration of medication. Reviewed process and answered all questions. TC denita Schultz at [facility], referral made. TEENA SIMMS will await acceptance. Addendum entered by Annia Piedra 10/14/24 13:48: Received notication that pt is not medically ready for dc this date and possibly tomorrow. Due to not having definitive dc, will plan for SOC for HHC on Thursday. Referral sent to [facility] at this time. Original Note: RN DEMI received IV atb rx from ID. RN DEMI into pt room, pt states that she is leaning towards HHC and her dtr doing the IV atb at home. She states her dtr will be in after work today at approx 2:30. Provided pt with a verbal local in network list of Infusion providers, pt chose [facility]. Patient was provided a list of [facility] providers including quality and resource use data and consistent with the patient?s preferred geographic region, medical needs, and insurance network were provided from the CarePort Guide. Pt to review HHC options and RN DEMI to check back for pt preferences. Pt aware to provide 3 preferences. Message to Amilcar WORKMAN to see if pt medically ready for dc this date.
--- NOTE | 2024-10-14 13:29 | PCM.PN.HOSP ---
Reason for Visit Reason for Visit: Diagnoses Infection and inflammatory reaction due to internal right knee prosthesis, initial encounter (10/14/24) COVID-19 (10/14/24) Encounter for other preprocedural examination (10/14/24) Subjective Subjective Patient sitting up in bed, little bit of pain but overall feeling fairly well. No new or acute complaints. Has not had a bowel movement yet today but reports she usually goes 2 or 3 days without 1. He is amenable to taking stool softeners Objective Data Objective Data Vital Signs: Vital Signs Temp Pulse Resp BP Pulse Ox O2 Del Method O2 Flow Rate 97.9 F 79 16 151/78 H 98 Room Air 2 10/14/24 08:55 10/14/24 08:55 10/14/24 08:55 10/14/24 08:55 10/14/24 08:55 10/14/24 09:22 10/14/24 01:13 Oxygen Flow Rate (L/min) 2 Oxygen Delivery Method Room Air Weight: 96 kg Body Mass Index (BMI) 37.5 Intake & Output: Intake and Output for Last 24 Hours 10/12/24 10/13/24 10/14/24 23:59 23:59 23:59 Intake Total 1855.33 / 1855.33 50 / 50 Output Total 90 / 90 50 / 50 Balance 1765.33 / 1765.33 0 / 0 Lab / Micro Data 10/14/24 06:45 10/14/24 06:45 Labs: Laboratory Results - last 24 hr 10/13/24 12:25: POC Glucose 85 10/14/24 06:45: WBC 12.7 H, RBC 3.69 L, Hgb 11.0 L, Hct 33.8 L, MCV 91.6, MCH 29.8, MCHC 32.5, RDW Std Deviation 41.9, RDW Coeff of Marielos 12.5, Plt Count 279, MPV 8.6, Sodium 138, Potassium 4.1, Chloride 107, Carbon Dioxide 28.0, Anion Gap 3 L, BUN 15, Creatinine 0.43 L, Estim Creat Clear Calc 70.08, Est GFR (MDRD) Af Amer 186, Est GFR (MDRD) Non-Af 154, BUN/Creatinine Ratio 35.0 H, Glucose 109 H, Calcium 8.2 L Radiography Diagnostic Testing: Radiology Impression Knee X-Ray 10/13/24 17:45 IMPRESSION: No unexpected postsurgical findings. Electronically Signed: Tadeo Jones MD at 18:53 EST , Physical Exam Narrative General: Alert, oriented, no apparent distress HEENT: Atraumatic, normocephalic Eyes: Anicteric, normal conjunctiva, extraocular movements grossly intact Neck: Supple Respiratory: Clear to auscultation bilaterally, normal respiratory effort Cardiovascular: Regular rate GI: Soft, nontender, nondistended Extremities: No edema Musculoskeletal: Moving all extremities Neuro: No overt focal neurological deficits Skin: Knee presently wrapped and wound VAC in place Psych: Cooperative Assessment & Plan Assessment/Plan (1) Infection of prosthetic right knee joint: PLAN: Plan # Right prosthetic knee joint infection -Had right total knee arthroplasty 02/18/2024 and began to have problems again with her knee on October 05, 2024. She had joint aspiration in the office with Dr. Velásquez which revealed infection with Streptococcus and patient brought to the hospital and admitted with wound VAC placed. -ID following for antibiotics. Aspiration grew group G strep so patient had PICC ordered and 6 weeks of IV Rocephin with stop date 11/24/2024 with weekly labs and ID follow-up in 2 to 3 weeks # COVID-19 positive -No respiratory symptoms and vitally stable -No indication for Decadron or remdesivir # Paroxysmal atrial fibrillation -Patient on Eliquis and diltiazem #anxiety -Continue home medications #Hypertension -Continue home diltiazem #DVT ppx: On Eliquis Laurie Zuniga MD Charges/Coding Visit Charges Inpatient E&M: 89570 Subs Hosp L1
--- NOTE | 2024-10-14 13:51 | CON.PCM.ID_ITS ---
Assessment & Plan Assessment/Plan (1) Infection of prosthetic right knee joint: PLAN: Aspiration cx with group g strep. Taken to OR 10/13/[address] Velásquez for I&D and poly exchange. Surg cx pending. Will order picc and 6 weeks iv ceftriaxone, stop date 11/24/24 with weekly labs and ID followup in 2-3 weeks. Will follow, thank you (2) COVID-19: HPI Consult Data Date of Consult: 10/14/24 HPI Narrative Reason for Consultation: pji HPI Narrative: KRISTA TALAVERA, is a 74 F who had R knee replacement early last year, developed fever, nausea, headache. Came to ED 10/03 and 10/05, dx with covid. Given symptomatic treatment. Over next week, developed progressive R knee pain, swelling, redness, and warmth. No known trauma to the knee. Admitted and taken to OR 10/13/[address] Velásquez for I&D and poly exchange. Covid sx are resolved, never got sick with this. Full ROS performed and neg except as noted above. [facility] Medical History Loss of hearing History of steroid therapy Uses wheelchair Walker as ambulation aid Bladder disease Heartburn History of edema History of stress test History of echocardiogram Cardiology follow-up encounter Essential hypertension Other acute postprocedural pain Wears glasses Arthritis Migraine headache Former smoker History of pain when walking Anticoagulant long-term use Paroxysmal atrial fibrillation Anxiety Obesity Paroxysmal supraventricular tachycardia Dizziness Palpitations Uterovaginal prolapse, incomplete Home Medications ?Medication ?Instructions ?Recorded ?Last Taken ?Type acetaminophen 500 mg tablet 1,000 mg PO Q8 PRN pain 07/23/22 10/13/24 01:00 History ascorbic acid (vitamin C) 500 mg 500 mg PO QAM osteoporosis 05/31/24 Unknown History tablet (Vitamin C) cholecalciferol (vitamin D3) 25 25 mcg PO QDAY SUPPLEMENT 05/31/24 10/12/24 History mcg (1,000 unit) tablet apixaban 5 mg tablet (Eliquis) 5 mg PO BID BLOOD THINNER #180 tabs 08/26/24 10/12/24 Rx buspirone 5 mg tablet 7.5 mg PO BID ANXIETY 10/03/24 10/13/24 History calcium citrate 200 mg PO BID SUPPLEMENT 10/03/24 10/12/24 History magnesium oxide 400 mg (241.3 mg 400 mg PO QHS SUPPLEMENT 10/03/24 Unknown History magnesium) tablet diltiazem HCl 120 mg 120 mg PO QHS BP 10/12/24 10/12/24 History capsule,extended release 24 hr, controlled famotidine 20 mg tablet 20 mg PO PRN PRN GERD 10/12/24 Unknown History tramadol 50 mg tablet 50 mg PO BID PRN pain 10/12/24 10/13/24 01:00 History ceftriaxone 2 gram intravenous 2 g IV Q24H 40 days 10/14/24 Unknown Rx solution Allergy/AdvReac Type Severity Reaction Status Date / Time metoprolol AdvReac Mild Nausea Verified 10/13/24 12:19 flecainide AdvReac nausea Verified 10/13/24 12:19 Family History Mother CAD (coronary artery disease) Myocardial infarction, Onset Age: 80 Father Asthma COPD (chronic obstructive pulmonary disease) Brother Colon cancer COPD (chronic obstructive pulmonary disease) Former smoker Grandmother Breast cancer Grandfather Colon cancer Surgical History History of knee replacement (02/18/24) History of total hip arthroplasty (05/08/21) Hx of total hip arthroplasty History of esophagogastroduodenoscopy (EGD) Hx of colonoscopy History of bladder suspension procedure (2017) H/O total hysterectomy (2018) Social History Smoking Status: Former smoker how long ago did patient quit smokin years ago alcohol intake: never substance use type: does not use caffeine: Yes Type: coffee Number of servings: 2 Physical Exam Const alert, oriented x3 and no apparent distress General Appearance: cooperative HEENT normocephalic and head/scalp atraumatic Eyes PERRL and EOMs intact bilaterally Neck supple and No nodes Resp normal air movement and clear to auscultation bilaterally Cardio regular rate and regular rhythm GI soft to palpation, non-tender and non-distended Extremity General Extremity: Negative for edema Skin no rashes or lesions noted Skin Narrative: R knee wrapped Neuro CN's II-XII intact bilaterally Lab / Micro Data Attestation: I reviewed the patient's lab results. 10/14/24 06:45 10/14/24 06:45 Labs: Laboratory Results - last 24 hr 10/13/24 12:25: POC Glucose 85 10/14/24 06:45: WBC 12.7 H, RBC 3.69 L, Hgb 11.0 L, Hct 33.8 L, MCV 91.6, MCH 29.8, MCHC 32.5, RDW Std Deviation 41.9, RDW Coeff of Mareilos 12.5, Plt Count 279, MPV 8.6, Sodium 138, Potassium 4.1, Chloride 107, Carbon Dioxide 28.0, Anion Gap 3 L, BUN 15, Creatinine 0.43 L, Estim Creat Clear Calc 70.08, Est GFR (MDRD) Af Amer 186, Est GFR (MDRD) Non-Af 154, BUN/Creatinine Ratio 35.0 H, Glucose 109 H, Calcium 8.2 L Imaging Radiology Impression Knee X-Ray 10/13/24 17:45 IMPRESSION: No unexpected postsurgical findings. Electronically Signed: Tadeo Jones MD at 18:53 EST ,
[2024-10-14 14:37] VITALS: BP 136/83; PULSE 108; RESP 18; TEMP 36.6; O2SAT 98
[2024-10-14 22:45] VITALS: BP 139/66; PULSE 108; RESP 16; TEMP 36.8; O2SAT 98
[2024-10-14] MEDS: Magnesium Chloride 64 MG Delay Rel.Tablet 128 MG PO (23:57)
[2024-10-14] MEDS: dilTIAZem CD 120 MG Capsule PO (23:59)
[2024-10-15 01:48] VITALS: BP 121/61; PULSE 107; RESP 18; TEMP 36.6; O2SAT 95
[2024-10-15 06:10] VITALS: BP 127/46; PULSE 87; RESP 18; TEMP 36.6; O2SAT 98
[2024-10-15] MEDS: Acetaminophen 500 MG Tablet 1000 MG PO ×3 (06:13→22:55)
[2024-10-15 06:24] LABS: Hemoglobin 10.9 g/dL (12.0-15.0); Mean Corp Hgb Conc 31.1 g/dL (32-36); Mean Corpuscular Hgb 28.8 pg (27.0-32.0); Mean Corpuscular Volume 92.6 fL (81-99); Mean Platelet Vol. 8.4 fl (6.2-12.0); Platelet Count 288 K/mm3 (150-450); RBC Distribution Width CV 12.7 % (11.6-14.6); RBC Distribution Width SD 43.1 fl (35.1-43.9); Red Blood Count 3.78 M/mm3 (4.2-5.4)
[2024-10-15 06:55] VITALS: O2SAT 94
[2024-10-15 07:01] LABS: Anion Gap 2 (5-15); BUN 17 mg/dL (7-18); BUN/Creat Ratio 34.1 RATIO (10-20); Calcium,Total 7.9 mg/dL (8.5-10.1); Chloride 110 mmol/L (98-107); EST Glomerular Filtration Rate 129 mL/min (>60); Est Glom Filt Rate - Afr Amer 156 mL/min (>60); Estimated Creatinine Clearance 70.08 ml/min; Glucose 94 mg/dL (74-106); Potassium 3.8 mmol/L (3.5-5.1); Sodium Level 140 mmol/L (136-145)
--- NOTE | 2024-10-15 07:27 | PCM.PN.HOSP ---
Reason for Visit Reason for Visit: Diagnoses Infection and inflammatory reaction due to internal right knee prosthesis, initial encounter (10/14/24) COVID-19 (10/14/24) Encounter for other preprocedural examination (10/14/24) Subjective Subjective Patient feeling well today and has no new or acute complaints, no palpitations or chest pain, denies shortness of breath Objective Data Objective Data Vital Signs: Vital Signs Temp Pulse Resp BP Pulse Ox O2 Del Method O2 Flow Rate 97.8 F 87 18 127/46 H 98 Room Air 2 10/15/24 06:10 10/15/24 06:10 10/15/24 06:10 10/15/24 06:10 10/15/24 06:10 10/15/24 06:10 10/14/24 01:13 Oxygen Flow Rate (L/min) 2 Oxygen Delivery Method Room Air Weight: 96 kg Body Mass Index (BMI) 37.5 Intake & Output: Intake and Output for Last 24 Hours 10/13/24 10/14/24 10/15/24 23:59 23:59 23:59 Intake Total 1855.33 / 1855.33 50 / 50 Output Total 90 / 90 95 / 95 Balance 1765.33 / 1765.33 -45 / -45 Lab / Micro Data 10/15/24 05:56 10/15/24 05:56 Labs: Laboratory Results - last 24 hr 10/14/24 06:45: Sodium 138, Potassium 4.1, Chloride 107, Carbon Dioxide 28.0, Anion Gap 3 L, BUN 15, Creatinine 0.43 L, Estim Creat Clear Calc 70.08, Est GFR (MDRD) Af Amer 186, Est GFR (MDRD) Non-Af 154, BUN/Creatinine Ratio 35.0 H, Glucose 109 H, Calcium 8.2 L 10/15/24 05:56: WBC 9.0, RBC 3.78 L, Hgb 10.9 L, Hct 35.0 L, MCV 92.6, MCH 28.8, MCHC 31.1 L, RDW Std Deviation 43.1, RDW Coeff of Marielos 12.7, Plt Count 288, MPV 8.4, Sodium 140, Potassium 3.8, Chloride 110 H, Carbon Dioxide 28.0, Anion Gap 2 L, BUN 17, Creatinine 0.50 L, Estim Creat Clear Calc 70.08, Est GFR (MDRD) Af Amer 156, Est GFR (MDRD) Non-Af 129, BUN/Creatinine Ratio 34.1 H, Glucose 94, Calcium 7.9 L Micro: Microbiology 10/13/24 17:00 Tissue - Knee Wound Culture - Preliminary Beta streptococcus 10/13/24 17:00 Tissue - Knee Wound Culture - Preliminary Beta hemolytic organism Physical Exam Narrative General: Alert, oriented, no apparent distress HEENT: Atraumatic, normocephalic Eyes: Anicteric, normal conjunctiva, extraocular movements grossly intact Neck: Supple Respiratory: Clear to auscultation bilaterally, normal respiratory effort Cardiovascular: Regular rate GI: Soft, nontender, nondistended Extremities: No edema Musculoskeletal: Moving all extremities, sitting up in chair Neuro: No overt focal neurological deficits Skin: No rashes appreciated Psych: Cooperative Assessment & Plan Assessment/Plan (1) Infection of prosthetic right knee joint: PLAN: Plan # Right prosthetic knee joint infection secondary to group G strep -Had right total knee arthroplasty 02/18/2024 and began to have problems again with her knee on October 05, 2024. She had joint aspiration in the office with Dr. Velásquez which revealed infection with Streptococcus and patient brought to the hospital and admitted with irrigation debridement and complete synovectomy -ID following for antibiotics. Aspiration grew group G strep so patient had PICC ordered and 6 weeks of IV Rocephin with stop date 11/24/2024 with weekly labs and ID follow-up in 2 to 3 weeks -10/15: ID following, PICC ordered with IV Rocephin. Will need weekly labs and follow-up with ID in 2 to 3 weeks. Patient medically stable to discharge from my point once antibiotic plan finalized and okay to do so with orthopedics and infectious disease # COVID-19 positive -No respiratory symptoms and vitally stable -No indication for Decadron or remdesivir -10/15: 98% on room air, no further acute management # Paroxysmal atrial fibrillation -Patient on Eliquis and diltiazem -10/15: On Eliquis, heart rate intermittently low 100s but not consistently so, no A-fib with RVR noted, no symptoms, blood pressure and oxygen saturation is stable. Continue diltiazem, suspect this is physiologic and not pathologic. No further workup or management at this time given vital stability, relatively low grade intermittent tachycardia and lack of any specific complaints that would lead me to believe there was any underlying additional process, discussed this with orthopedics Chronic medical problems: #anxiety -Continue home medications #Hypertension -Continue home diltiazem #DVT ppx: On Suyapaquedgardo Zuniga MD Time spent in the patient's overall evaluation,decision-making process, review of diagnostic data, adjustment of management, discussion with other providers, nursing nursing and ancillary staff involved in patient's care documentation, 36 minutes Charges/Coding Visit Charges Inpatient E&M: 01730 Subs Hosp L2
--- NOTE | 2024-10-15 09:38 | PN.ORTHO_ITS ---
Subjective Subjective Patient did well overnight. Did have some tachycardia. Has history of atrial fibrillation. Infectious disease was able to the patient yesterday and establish antibiotic regimen Rocephin for 6 weeks. Intraoperative cultures consistent with beta-hemolytic strep. Aspiration cultures revealed group G strep. Drain put out 20 at last shift. Roughly 20 mL this morning. Objective Data Objective Data Vital Signs: Vital Signs Temp Pulse Resp BP Pulse Ox O2 Del Method O2 Flow Rate 97.8 F 87 18 127/46 H 94 Room Air 2 10/15/24 06:10 10/15/24 06:10 10/15/24 06:10 10/15/24 06:10 10/15/24 06:55 10/15/24 06:55 10/14/24 01:13 Oxygen Flow Rate (L/min) 2 Oxygen Delivery Method Room Air Weight: 211 lb 10.3 oz Body Mass Index (BMI) 37.5 Intake & Output: Intake and Output for Last 24 Hours 10/13/24 10/14/24 10/15/24 23:59 23:59 23:59 Intake Total 1855.33 / 1855.33 50 / 50 Output Total 90 / 90 95 / 95 Balance 1765.33 / 1765.33 -45 / -45 Lab / Micro Data Attestation: I reviewed the patient's lab results. 10/15/24 05:56 10/15/24 05:56 Labs: Laboratory Results - last 24 hr 10/15/24 05:56: WBC 9.0, RBC 3.78 L, Hgb 10.9 L, Hct 35.0 L, MCV 92.6, MCH 28.8, MCHC 31.1 L, RDW Std Deviation 43.1, RDW Coeff of Marielos 12.7, Plt Count 288, MPV 8.4, Sodium 140, Potassium 3.8, Chloride 110 H, Carbon Dioxide 28.0, Anion Gap 2 L, BUN 17, Creatinine 0.50 L, Estim Creat Clear Calc 70.08, Est GFR (MDRD) Af Amer 156, Est GFR (MDRD) Non-Af 129, BUN/Creatinine Ratio 34.1 H, Glucose 94, C alcium 7.9 L Micro: Microbiology 10/13/24 17:00 Tissue - Knee Wound Culture - Preliminary Beta streptococcus 10/13/24 17:00 Tissue - Knee Wound Culture - Preliminary Beta hemolytic organism Physical Exam Const alert, oriented x3 and no apparent distress Resp normal respiratory effort Extremity Extremity Narrative: Right lower extremity: Prevena VAC dressing is clean dry and intact. No drainage in the VAC canister. Hemovac drain does have about 20 cc of fluid. Skin without erythema. Sensations intact to light touch saphenous, sural, superficial peroneal, deep peroneal, and tibial distributions Motors intact EHL, DF, PF calves are soft and supple Assessment & Plan Assessment/Plan (1) Infection of prosthetic right knee joint: PLAN: 1. S/P irrigation debridement with complete synovectomy and polyethylene exchange right knee due to acute periprosthetic joint infection POD #2 2. Continue Pain Medications: Tylenol and oxycodone 3. DVT Prophylaxis: Patient will resume her Eliquis today in which she takes for atrial fibrillation. This will cover her for DVT prophylaxis. Patient denies past history of DVT or pulmonary embolism. 4. PT/OT: Weightbearing as tolerated with walker. Range of motion as tolerated. 5. H & H: Stable over the last 2 days. 10.9 hemoglobin today. vitals have been stable. Currently on room air breathing in no distress 6. Infectious disease consultation: Microbiology is currently pending from intraoperative samples 2 out of 3 cultures do show positive growth morning showing beta-hemolytic organism 1 beta strep. Preoperative aspiration did grow out Streptococcus group G. Infectious diseases recommended Rocephin for 6 weeks. PICC line was placed. 7. Hemovac drain: Last evening shift drain 20 cc of fluid. Roughly 20 cc this morning overnight. I did elect for the drain. Suture was removed and drain was removed dressing was placed. 8. Continue Prevena incisional wound VAC: Plan will be to keep incisional wound VAC on for 1 week postoperatively with removal on October 20, 2024. Currently no output in canister or tubing 9. Encouraged Incentive Spirometry 10. Patient is aware of postoperative constipation that can occur from 1-3 days postoperatively. Will continue with senna 2 tablets twice daily until first bowel movement. Patient was advised if not having a bowel movement after day 3 she is to contact orthopedics so appropriate change can be made. Patient voiced understanding. 11. Continue postoperative medical treatment per medicine 12. Tachycardia: Patient did become tachycardic overnight. I discussed medicine no other significant abnormalities in her vitals. Currently no chest pain or shortness of breath. Calves are soft and supple. Will continue to monitor clinically. 13. Disposition: At this time patient is orthopedically stable. Infectious disease has established a antibiotic regimen Rocephin every 24 hours IV for 6 weeks. Did review social work notes patient does prefer home health care. Based on availability of home health care and ability training family at home it appears that 2 days ago discharge date. In order to have this properly arranged for safe and appropriate handoff. Will continue to work with family and home health care social work team to finalize a plan. While in the hospital patient will continue to work with physical therapy in which she is weightbearing as tolerated and range of motion as tolerated. Continue above pain medications. She has resumed her Eliquis which she takes for atrial fibrillation. Recommend ice and elevation. Case management will be involved for appropriate and safe discharge planning once final recommendations have been established. Patient did discuss portable SCDs with me today. I directed her to the website showing many options and recommended continue with the good have at home upon discharge. Additionally we discussed at home ice machine. I have reviewed the [place] Automated Rx Reporting System (OARRS) report for this patient for refill pattern and other prescriber involvement as part of the appropriate surveillance for the provision of acute and chronic controlled medications. The report was requested and reviewed on the date of this entry and was considered in the prescribing process. This dictation was created using voice recognition software. Phonetic and/or grammatical errors may exist. (2) COVID-19:
[2024-10-15 09:44] VITALS: BP 126/50; PULSE 101; RESP 18; TEMP 36.7; O2SAT 99
[2024-10-15] MEDS: busPIRone 5 MG Tablet 7.5 MG PO ×2 (09:46→22:56)
[2024-10-15] MEDS: Ascorbic Acid 500 MG Tablet PO (09:46)
[2024-10-15] MEDS: Senna/Docusate Sodium 1 Tablet 2 TABLET PO ×2 (09:46→22:54)
[2024-10-15] MEDS: Cholecalciferol (VIT D3) 25 MCG TABLET (1,000 UNITS) PO (09:46)
[2024-10-15] MEDS: Ceftriaxone 2 GM in 0.9% Normal Saline (50mL MB+) 50 ML IV (09:47)
[2024-10-15] MEDS: APIXABAN 5 MG TABLET PO ×2 (09:47→22:54)
[2024-10-15] MEDS: Calcium Carbonate 500 MG Tablet PO (09:47)
[2024-10-15] MEDS: 0.9% Saline Lock 10 ML Syringe IV (09:52)
[2024-10-15] MEDS: oxyCODONE 5 MG Tablet PO ×2 (10:09→23:08)
[2024-10-15 15:00] VITALS: BP 147/71; PULSE 92; RESP 18; TEMP 36.5; O2SAT 100
[2024-10-15] MEDS: Mineral Oil/Petrolatum Cr 1.75oz Bottle 1 APPLIC TOPICAL (17:34)
[2024-10-15] MEDS: dilTIAZem CD 120 MG Capsule PO (22:54)
[2024-10-15] MEDS: Magnesium Chloride 64 MG Delay Rel.Tablet 128 MG PO (22:55)
[2024-10-15 23:02] VITALS: BP 140/67; PULSE 103; RESP 16; TEMP 36.5; O2SAT 99
[2024-10-16 04:53] VITALS: BP 134/58; PULSE 93; RESP 16; TEMP 36.5; O2SAT 98
[2024-10-16] MEDS: Acetaminophen 500 MG Tablet 1000 MG PO ×3 (04:55→22:39)
[2024-10-16 06:40] LABS: Hematocrit 31.2 % (37-47); Mean Corp Hgb Conc 32.1 g/dL (32-36); Mean Corpuscular Hgb 29.7 pg (27.0-32.0); Mean Corpuscular Volume 92.6 fL (81-99); Mean Platelet Vol. 8.4 fl (6.2-12.0); Platelet Count 249 K/mm3 (150-450); RBC Distribution Width CV 12.8 % (11.6-14.6); RBC Distribution Width SD 43.1 fl (35.1-43.9); Red Blood Count 3.37 M/mm3 (4.2-5.4); White Blood Count 7.4 K/mm3 (4.4-11.0)
[2024-10-16 07:00] LABS: Anion Gap 1 (5-15); BUN 11 mg/dL (7-18); BUN/Creat Ratio 25.3 RATIO (10-20); Calcium,Total 8.3 mg/dL (8.5-10.1); Chloride 108 mmol/L (98-107); Creatinine, Serum 0.43 mg/dL (0.55-1.02); EST Glomerular Filtration Rate 152 mL/min (>60); Est Glom Filt Rate - Afr Amer 183 mL/min (>60); Estimated Creatinine Clearance 70.08 ml/min; Glucose 104 mg/dL (74-106); Sodium Level 138 mmol/L (136-145)
[2024-10-16 08:15] VITALS: O2SAT 96
[2024-10-16 09:27] VITALS: BP 122/73; PULSE 89; RESP 18; TEMP 36.5; O2SAT 96
[2024-10-16] MEDS: APIXABAN 5 MG TABLET PO ×2 (09:28→22:39)
[2024-10-16] MEDS: busPIRone 5 MG Tablet 7.5 MG PO ×2 (09:28→22:37)
[2024-10-16] MEDS: Senna/Docusate Sodium 1 Tablet 2 TABLET PO (09:29)
[2024-10-16] MEDS: Cholecalciferol (VIT D3) 25 MCG TABLET (1,000 UNITS) PO (09:29)
[2024-10-16] MEDS: Ascorbic Acid 500 MG Tablet PO (09:29)
[2024-10-16] MEDS: Calcium Carbonate 500 MG Tablet PO ×2 (09:29→22:38)
[2024-10-16] MEDS: Ceftriaxone 2 GM in 0.9% Normal Saline (50mL MB+) 50 ML IV (10:14)
[2024-10-16] MEDS: 0.9% Saline Lock 10 ML Syringe IV (10:15)
--- NOTE | 2024-10-16 11:01 | PN.HOSP_ITS ---
Reason for Visit Reason for Visit: Diagnoses Infection and inflammatory reaction due to internal right knee prosthesis, initial encounter (10/14/24) COVID-19 (10/14/24) Encounter for other preprocedural examination (10/14/24) Subjective Subjective Patient was just up in chair and on side of bed doing exercises, now laying back, she has no physical complaints Objective Data Objective Data Vital Signs: Vital Signs Temp Pulse Resp BP Pulse Ox O2 Del Method O2 Flow Rate 97.7 F L 89 18 122/73 H 96 Room Air 2 10/16/24 09:27 10/16/24 09:27 10/16/24 09:27 10/16/24 09:27 10/16/24 09:27 10/16/24 09:27 10/14/24 01:13 Oxygen Flow Rate (L/min) 2 Oxygen Delivery Method Room Air Weight: 96 kg Body Mass Index (BMI) 37.5 Intake & Output: Intake and Output for Last 24 Hours 10/14/24 10/15/24 10/16/24 23:59 23:59 23:59 Intake Total 50 / 50 450 / 650 400 / 400 Output Total 95 / 95 Balance -45 / -45 450 / 650 400 / 400 Lab / Micro Data 10/16/24 06:19 10/16/24 06:19 Labs: Laboratory Results - last 24 hr 10/16/24 06:19: WBC 7.4, RBC 3.37 L, Hgb 10.0 L, Hct 31.2 L, MCV 92.6, MCH 29.7, MCHC 32.1, RDW Std Deviation 43.1, RDW Coeff of Marielos 12.8, Plt Count 249, MPV 8.4, Sodium 138, Potassium 4.0, Chloride 108 H, Carbon Dioxide 29.0, Anion Gap 1 L, BUN 11, Creatinine 0.43 L, Estim Creat Clear Calc 70.08, Est GFR (MDRD) Af Amer 183, Est GFR (MDRD) Non-Af 152, BUN/Creatinine Ratio 25.3 H, Glucose 104, C alcium 8.3 L Micro: Microbiology 10/13/24 17:00 Tissue - Knee Gram Stain - Final 10/13/24 17:00 Tissue - Knee Wound Culture - Final Streptococcus group G 10/13/24 17:00 Tissue - Knee Gram Stain - Final 10/13/24 17:00 Tissue - Knee Wound Culture - Final Streptococcus group G 10/13/24 17:00 Tissue - Knee Gram Stain - Final 10/13/24 17:00 Tissue - Knee Wound Culture - Final No growth aerobically. Physical Exam Narrative General: Alert, oriented, no apparent distress HEENT: Atraumatic, normocephalic Eyes: Anicteric, normal conjunctiva, extraocular movements grossly intact Neck: Supple Respiratory: Clear to auscultation bilaterally, normal respiratory effort Cardiovascular: Very slightly tachycardic and irregular but patient just got back in the bed GI: Soft, nontender, nondistended Extremities: No edema Musculoskeletal: Moving all extremities, sitting up in chair Neuro: No overt focal neurological deficits Skin: No rashes appreciated Psych: Cooperative Assessment & Plan Assessment/Plan (1) Infection of prosthetic right knee joint: PLAN: Plan # Right prosthetic knee joint infection secondary to group G strep -Had right total knee arthroplasty 02/18/2024 and began to have problems again with her knee on October 05, 2024. She had joint aspiration in the office with Dr. Velásquez which revealed infection with Streptococcus and patient brought to the hospital and admitted with irrigation debridement and complete synovectomy -ID following for antibiotics. Aspiration grew group G strep so patient had PICC ordered and 6 weeks of IV Rocephin with stop date 11/24/2024 with weekly labs and ID follow-up in 2 to 3 weeks -10/15: ID following, PICC ordered with IV Rocephin. Will need weekly labs and follow-up with ID in 2 to 3 weeks. Patient medically stable to discharge from my point once antibiotic plan finalized and okay to do so with orthopedics and infectious disease -10/16: Awaiting home health for discharge, patient on Rocephin # COVID-19 positive -No respiratory symptoms and vitally stable -No indication for Decadron or remdesivir -10/15: 98% on room air, no further acute management -10/16: Respiratory status stable # Paroxysmal atrial fibrillation -Patient on Eliquis and diltiazem -10/15: On Eliquis, heart rate intermittently low 100s but not consistently so, no A-fib with RVR noted, no symptoms, blood pressure and oxygen saturation is stable. Continue diltiazem, suspect this is physiologic and not pathologic. No further workup or management at this time given vital stability, relatively low grade intermittent tachycardia and lack of any specific complaints that would lead me to believe there was any underlying additional process, discussed this with orthopedics -10/16: Continues to intermittently have very low-grade elevations in heart rate, had just been up in chair and then doing exercises on side of bed so was very slight elevation heart rate. Given patient otherwise vitally stable and also is down hemoglobin postsurgery as well as is on antibiotics for an infection and patient reports p.o. intake suspect this is all causing mild physiologic tachycardia especially if she is getting up or moving around and would anticipate that this would improve over time, does not seem that there is any actual A-fib with RVR or anything else pathologic, due to her saying she is not eating and drinking particularly well will add gentle IV fluids, do not think this is something that would preclude discharge tomorrow or the following day. Patient can follow-up with her primary care physician. Continue Eliquis and diltiazem Chronic medical problems: #anxiety -Continue home medications #Hypertension -Continue home diltiazem #DVT ppx: On Eliquis Laurie Zuniga MD Time spent in the patient's overall evaluation,decision-making process, review of diagnostic data, adjustment of management, discussion with other providers, nursing nursing and ancillary staff involved in patient's care documentation, 35 minutes Charges/Coding Visit Charges Inpatient E&M: 48368 Subs Hosp L2
[2024-10-16] MEDS: 0.9% Normal Saline (1000mL) 1,000 ML 50 ML IV (12:31)
[2024-10-16] MEDS: Mineral Oil/Petrolatum Cr 1.75oz Bottle 1 APPLIC TOPICAL (12:40)
--- NOTE | 2024-10-16 13:23 | PCM.PN.ORT ---
Subjective Subjective Patient is doing well. She is comfortable. She is tolerated therapy well. Plan is for home health care with her IV infusion. PICC line is in place. She is on Rocephin 2 g once daily. Objective Data Objective Data Vital Signs: Vital Signs Temp Pulse Resp BP Pulse Ox O2 Del Method O2 Flow Rate 97.7 F L 89 18 122/73 H 96 Room Air 2 10/16/24 09:27 10/16/24 09:27 10/16/24 09:27 10/16/24 09:27 10/16/24 09:27 10/16/24 09:27 10/14/24 01:13 Oxygen Flow Rate (L/min) 2 Oxygen Delivery Method Room Air Weight: 211 lb 10.3 oz Body Mass Index (BMI) 37.5 Intake & Output: Intake and Output for Last 24 Hours 10/14/24 10/15/24 10/16/24 23:59 23:59 23:59 Intake Total 50 / 50 450 / 650 450 / 450 Output Total 95 / 95 Balance -45 / -45 450 / 650 450 / 450 Lab / Micro Data 10/16/24 06:19 10/16/24 06:19 Labs: Laboratory Results - last 24 hr 10/16/24 06:19: WBC 7.4, RBC 3.37 L, Hgb 10.0 L, Hct 31.2 L, MCV 92.6, MCH 29.7, MCHC 32.1, RDW Std Deviation 43.1, RDW Coeff of Marielos 12.8, Plt Count 249, MPV 8.4, Sodium 138, Potassium 4.0, Chloride 108 H, Carbon Dioxide 29.0, Anion Gap 1 L, BUN 11, Creatinine 0.43 L, Estim Creat Clear Calc 70.08, Est GFR (MDRD) Af Amer 183, Est GFR (MDRD) Non-Af 152, BUN/Creatinine Ratio 25.3 H, Glucose 104, Calcium 8.3 L Micro: Microbiology 10/13/24 17:00 Tissue - Knee Gram Stain - Final 10/13/24 17:00 Tissue - Knee Wound Culture - Final Streptococcus group G 10/13/24 17:00 Tissue - Knee Gram Stain - Final 10/13/24 17:00 Tissue - Knee Wound Culture - Final Streptococcus group G 10/13/24 17:00 Tissue - Knee Gram Stain - Final 10/13/24 17:00 Tissue - Knee Wound Culture - Final No growth aerobically. Physical Exam Narrative Right lower extremity: Wound VAC dressing is clean dry and intact no drainage in tubing or canister. No surrounding erythema Sensations intact to light touch saphenous, sural, superficial peroneal, deep peroneal, and tibial distributions Motors intact EHL, DF, PF calves are soft and supple Const alert and oriented x3 Assessment & Plan Assessment/Plan (1) Infection of prosthetic right knee joint: PLAN: 1. S/P irrigation debridement with complete synovectomy and polyethylene exchange right knee due to acute periprosthetic joint infection POD #3 2. Continue Pain Medications: Tylenol and oxycodone. Primarily controlled with Tylenol 3. DVT Prophylaxis: Patient has resumed her Eliquis in which she takes for atrial fibrillation. This will cover her for DVT prophylaxis. Patient denies past history of DVT or pulmonary embolism. 4. PT/OT: Weightbearing as tolerated with walker. Range of motion as tolerated. 5. H & H: Stable over send surgery with expected drop associated with intraoperative blood loss. vitals have been stable. Currently on room air breathing in no distress 6. Infectious disease consultation: Intraoperative microbiology is currently 2 out of 3 cultures do show group G strep susceptible to cephalosporins. Preoperative aspiration did grow out Streptococcus group G. Infectious diseases recommended Rocephin for [address] 7. Hemovac drain: Removed yesterday. 8. Continue Prevena incisional wound VAC: Plan will be to keep incisional wound VAC on for 1 week postoperatively with removal on October 20, 2024. Currently no output in canister or tubing 9. Encouraged Incentive Spirometry 10. Patient is aware of postoperative constipation that can occur from 1-3 days postoperatively. Will continue with senna 2 tablets twice daily until first bowel movement. Patient was advised if not having a bowel movement after day 3 she is to contact orthopedics so appropriate change can be made. Patient voiced understanding. Additionally, we spoke about the use of probiotics today upon discharge. Patient was instructed to take probiotic of choice or use activity over at least once a day 11. Continue postoperative medical treatment per medicine. Appreciate medicine input on this patient 12. Tachycardia: Patient has had occasional bouts of increased heart rate some associated with activity and therapy sessions otherwise asymptomatic. Discussed case with medicine yesterday dated give her some additional IV fluids today due to her increased oral intake ultimately, does not appear to be significant enough to require continued inpatient care. Currently no chest pain or shortness of breath. Calves are soft and supple. Will continue to monitor clinically. 13. Disposition: At this time patient is orthopedically stable. Infectious disease has established a antibiotic regimen Rocephin every 24 hours IV for 6 weeks and now cultures show bacteria would be susceptible to this. Did speak with social work today. Plan is for discharge tomorrow if approval can be obtained from the at home service. Will plan on discharge after her dose of antibiotics tomorrow. Her daughter is expected to be at the home on Thursday for appropriate training. While in the hospital patient will continue to work with physical therapy in which she is weightbearing as tolerated and range of motion as tolerated. Continue above pain medications. She has resumed her Eliquis which she takes for atrial fibrillation. Recommend ice and elevation. Case management will be involved for appropriate and safe discharge planning once final recommendations have been established. Patient did discuss portable SCDs with me yesterday. I directed her to the website showing many options and recommended continue with the good have at home upon discharge. Additionally we discussed at home ice machine. I have reviewed the [place] Automated Rx Reporting System (OARRS) report for this patient for refill pattern and other prescriber involvement as part of the appropriate surveillance for the provision of acute and chronic controlled medications. The report was requested and reviewed on the date of this entry and was considered in the prescribing process. This dictation was created using voice recognition software. Phonetic and/or grammatical errors may exist. (2) COVID-19:
[2024-10-16 14:00] VITALS: BP 138/56; PULSE 96; RESP 18; TEMP 36.7; O2SAT 98
[2024-10-16] MEDS: oxyCODONE 5 MG Tablet PO (19:48)
[2024-10-16 22:35] VITALS: BP 139/58; PULSE 102; RESP 16; TEMP 37; O2SAT 95
[2024-10-16] MEDS: Magnesium Chloride 64 MG Delay Rel.Tablet 128 MG PO (22:38)
[2024-10-16] MEDS: dilTIAZem CD 120 MG Capsule PO (22:39)
[2024-10-16 22:42] VITALS: PULSE 103
[2024-10-17 05:22] VITALS: BP 136/57; PULSE 94; RESP 16; TEMP 36.4; O2SAT 97
[2024-10-17] MEDS: Acetaminophen 500 MG Tablet 1000 MG PO (05:24)
--- NOTE | 2024-10-17 07:25 | PCM.PN.ORT ---
Subjective Subjective Patient appears to be comfortable in bed. Patient stated that they have been up and working with physical therapy and has been walking on hallway. Patient states that her pain is well-controlled with pretty much just taking Tylenol. Patient denies any shortness of breath, chest pain, calf pain, fever, chills, dizziness, nausea, and vomiting. Patient denies any adverse events overnight. Objective Data Objective Data Vital Signs: Vital Signs Temp Pulse Resp BP Pulse Ox O2 Del Method O2 Flow Rate 97.5 F L 94 16 136/57 H 97 Room Air 2 10/17/24 05:22 10/17/24 05:22 10/17/24 05:22 10/17/24 05:22 10/17/24 05:22 10/17/24 05:22 10/14/24 01:13 Oxygen Flow Rate (L/min) 2 Oxygen Delivery Method Room Air Weight: 96 kg Body Mass Index (BMI) 37.5 Intake & Output: Intake and Output for Last 24 Hours 10/15/24 10/16/24 10/17/24 23:59 23:59 23:59 Intake Total 450 / 650 1172.5 / 1372.5 350 / 350 Balance 450 / 650 1172.5 / 1372.5 350 / 350 Lab / Micro Data 10/16/24 06:19 10/16/24 06:19 Micro: Microbiology 10/13/24 17:00 Tissue - Knee Gram Stain - Final 10/13/24 17:00 Tissue - Knee Wound Culture - Final Streptococcus group G 10/13/24 17:00 Tissue - Knee Anaerobic Culture - Preliminary Checking for anaerobes, further studies to follow. 10/13/24 17:00 Tissue - Knee Gram Stain - Final 10/13/24 17:00 Tissue - Knee Wound Culture - Final Streptococcus group G 10/13/24 17:00 Tissue - Knee Anaerobic Culture - Preliminary Checking for anaerobes, further studies to follow. 10/13/24 17:00 Tissue - Knee Gram Stain - Final 10/13/24 17:00 Tissue - Knee Wound Culture - Final No growth aerobically. 10/13/24 17:00 Tissue - Knee Anaerobic Culture - Preliminary No growth in 48 hours. Physical Exam Narrative 1. There is in place bilaterally. 2. SCDs are in place bilaterally. 3. Incision is clean dry and intact. 4. Dorsiflexion and plantarflexion are performed actively without pain or restriction. 5. Sensation intact to light touch. 6. Neurovascular intact overall. 7. Negative Homans' sign. Const alert, oriented x3 and no apparent distress Assessment & Plan Assessment/Plan (1) Infection of prosthetic right knee joint: PLAN: 1. DVT prophylaxis: Patient has resumed her normal dose of Eliquis and will continue her regular dose at home, patient was educated to wear her MARILYN hose for 2 weeks educating her that she is able to take them off at night if she wishes, patient was also encouraged to walk 5 minutes of every hour that she is weak. 2. Pain medication: Patient was instructed to take Tylenol 1000 mg every 8 hours [id number] taking no more than 3000 mg in 24 hours. Patient was also instructed to then take her oxycodone 1-2 every 6 hours as needed for breakthrough pain. OARRS report was reviewed today. The risk of abuse potential for narcotic pain medications was discussed and reviewed. Patient was advised on history of motor vehicle or operate heavy equipment while taking narcotic pain medication. They were instructed to the minimal amount of narcotic pain medication as requested by the current pain and decrease its use as appropriate for pain. Patient voiced understanding. 3. Constipation: Patient states that she did have a bowel movement yesterday. Patient was instructed that she will be sent home with senna that she can take as needed for constipation. 4. Physical therapy: Patient has been up and working with physical therapy stating that she has walked up and down the hallway with her walker. Per physical therapy note she walked 120 feet with her walker. Patient states that she will begin physical therapy at her home along with home health services. 5. Labs: Patient's labs have not yet been drawn this morning. Patient's labs were stable as of yesterday and we will review once labs are drawn. 6. Incentive spirometer: Patient was encouraged to use her incentive spirometer every hour that she is awake for the first week to exercise along decrease risk of postoperative lung infection. 7. Home health: Patient will be utilizing home health services as she will have an IV infusion and PICC line with Rocephin 2 g 1 time per day for 6 weeks. 8. Patient is weightbearing as tolerated with her walker. 9. Infectious disease: Intraoperative cultures have come back as group G Streptococcus infectious disease services were involved and recommended Rocephin for 6 weeks. Patient has a PICC line in place. 10. Prevena incisional wound VAC: Patient will have wound VAC in place for 1 week postoperatively with removal on 10/20/2024. 11. Dressings: Patient was educated that she is able to get her dressings in the shower and can remove waterproof dressing on postop day 5. Patient was educated that she can do gentle soap and water over her incision after taking the dressing off. Patient was advised not to do any soaking, submerging of her incision for 6 weeks. Patient was also advised not to do any lotions, oils, salves directly over the incision for 6 weeks. 12. Medicines involvement: Medicine services have been involved to help manage chronic disease. Appreciate medicine services. 13. Patient is good for discharge as pain is adequately controlled, she has worked with physical therapy and has seemed to tolerate well, and is okay per medicine doctors instructions. 14 disposition: Patient is orthopedically stable at this time and is ready for discharge. The discharge plan is for patient to be discharged today if approval is obtained from home health services. Will plan that she can be discharged today after her dose of antibiotics. Case management has been involved and will help for a safe discharge planning once recommendations and plans are in place. Patient will plan to follow-up in our office in 2 weeks on 10/28/[address] Velásquez. Patient plans to set up home physical therapy as well. Patient will be weightbearing as tolerated with her walker for physical therapy. Patient was encouraged to do elevation and ice as needed for pain control.
--- NOTE | 2024-10-17 07:42 | DCINST_ITS ---
Discharge Instructions Diet Discharge Diet: No restrictions DC O2, CPAP, BIPAP needs Home O2 Discharge instructions: No Dressing / Incision Discharge Activity: May Not Drive (No driving for 6 weeks as well as while taking narcotic pain medication.) and May Shower (As long as incision is clean dry and intact. No soaking, submerging for 6 weeks.) Ice area for (Minutes): 20 (Every 1-2 hours while awake. Making sure to place a barrier between the ice machine in the skin.) Weight Bearing Status: Weight bearing as tolerated Keep extremity elevated above heart level: Operative Extremity Dressing / Incision Call your doctor if your incision/area has: Increased Pain/ Swelling, Increased Redness, Foul Smelling Discharge and Swelling at the incision site Call your doctor if you observe: Fever of 101 or Higher, Numbness or Tingling, Inability to have a bowel movement, Shortness of breath, Dizziness, Chest pain and Calf discomfort Remove Dressing in: 1 day (Can remove dressing on postoperative day 5. Will have Prevena incisional wound VAC on for 1 week postoperative with removal on 10/20/2024.) Additional Dressing/Incision Instructions:: Once postoperative dressing has been removed, only use gentle soap and water over the incision. Do not use any ointments, Neosporin, salves, alcohol pads over the incision for 6 weeks postoperatively. Do not submerge underwater for 6 weeks postoperatively. Continue with MARILYN hose/elastic stockings for 2 weeks postoperatively. May remove at nighttime but needs to be placed back on the leg during the day. Do NOT use alcohol with narcotic pain medication. Do NOT make important decisions while taking narcotic medication. If you have problems with taking your medication (rash, itching, nausea, etc.) call the office at once. Follow Up Care Test Results: Test results from this visit will be discussed in further detail at your follow- up appointment, if applicable. Discharge Plan Admission Admit Date/Time: 10/14/24 11:35 Attending Provider: Elmo Velásquez Primary Care Provider: Damian Craig Consulting Providers: Laurie Zuniga; Ariel Traylor Discharge Orders/Prescriptions Prescriptions: New ceftriaxone 2 gram recon soln 2 g IV Q24H 40 Days Rx Instructions: stop date 11/24/24. Dx: [facility] weekly bmp, cbc, and esr. Fax to [phone]. Routine picc care per protocol. oxycodone 5 mg Tablet 5 - 10 mg PO Q4H PRN PRN (Reason: as needed for pain) 7 Days Qty: 42 0RF Rx Instructions: Take 1-2 tabs every 4-6 hours as needed for pain control. sennosides-docusate sodium 8.6-50 mg Tablet 2 tab PO BID 3 Days Qty: 12 0RF Continued acetaminophen 500 mg tablet 1,000 mg PO Q8 PRN (Reason: pain) Rx Instructions: Do not take more than 3000 mg Tylenol in a 24-hour period. cholecalciferol (vitamin D3) 25 mcg (1,000 unit) tablet 25 mcg PO QDAY ascorbic acid (vitamin C) [Vitamin C] 500 mg tablet 500 mg PO QAM buspirone 5 mg tablet 7.5 mg PO BID calcium citrate 200 mg (950 mg) tablet 200 mg PO BID magnesium oxide 400 mg (241.3 mg magnesium) tablet 400 mg PO QHS tramadol 50 mg tablet 50 mg PO BID PRN (Reason: pain) diltiazem HCl 120 mg capsule,ext.rel 24h degradable 120 mg PO QHS famotidine 20 mg tablet 20 mg PO PRN PRN (Reason: GERD) Eliquis 5 mg tablet 5 mg PO BID Qty: 180 4RF Referrals / Follow Up: Damian Craig MD [Primary Care Provider] - Disposition Disposition (needs filled in before D/C Order can be placed): Home Health Service
[2024-10-17 08:23] VITALS: BP 134/68; PULSE 94; RESP 17; TEMP 36.6; O2SAT 97
--- NOTE | 2024-10-17 09:09 | CASEMGMT ---
Addendum entered by Annia Piedra 10/17/24 09:48: Pt nurse aware that pt may dc after the IV medication is given. Addendum entered by Annia Piedra 10/17/24 09:31: Faxed [facility] the IV rx for pt. Addendum entered by Annia Piedra 10/17/24 09:29: [id number] CM into pt room, pt is aware that [facility] has accepted her for care to start tomorrow. She is aware the cost of the IV medication and supplies is $565.51/wk. Pt asks if there is help with this cost. She is aware that they will call her and she can verify with them. Also sent a message in [facility] making them aware pt has this question. Pt denies further needs at this time. Original Note: TC denita Schultz at [facility], they can accept pt for SOC tomorrow. Updated [facility] with dc instructions and [facility] agency to see pt. Updated dc plan.
[2024-10-17] MEDS: Ceftriaxone 2 GM in 0.9% Normal Saline (50mL MB+) 50 ML IV (10:01)
[2024-10-17] MEDS: busPIRone 5 MG Tablet 7.5 MG PO (10:01)
[2024-10-17] MEDS: Calcium Carbonate 500 MG Tablet PO (10:03)
[2024-10-17] MEDS: Cholecalciferol (VIT D3) 25 MCG TABLET (1,000 UNITS) PO (10:03)
[2024-10-17] MEDS: Ascorbic Acid 500 MG Tablet PO (10:03)
[2024-10-17] MEDS: 0.9% Saline Lock 10 ML Syringe IV (10:03)
[2024-10-17] MEDS: APIXABAN 5 MG TABLET PO (10:03)
--- NOTE | 2024-10-17 11:15 | PHA.DC_ITS ---
Pharmacy [facility] has performed discharge medication reconciliation and counseling for this patient. Patient would like meds to beds, this [facility] called retail and requested delivery. 1. CEFTRIAXONE 2GM IV DAILY 2. OXYCODONE 5-10MG PO Q4-6H PRN PAIN - DO NOT TAKE AT THE SAME TIME TRAMADOL 3. SENNA/DOCUSATE 2T PO BID The patient's discharge medication list was reviewed for discrepancies and discrepancies were resolved. The patient was counseled on the following discharge medications and changes in medications for homegoing were reviewed. The Reason for Use, instructions for use, and potential side effects were reviewed for all new medications. The patient's questions regarding all of their medications were answered. The patient was able to verbally demonstrate an understanding of their discharge medications. Medications at Discharge Home Medications acetaminophen 500 mg tablet 1,000 mg PO Q8 PRN pain 07/23/22 ascorbic acid (vitamin C) 500 mg tablet (Vitamin C) 500 mg PO QAM osteoporosis 05/31/24 cholecalciferol (vitamin D3) 25 mcg (1,000 unit) tablet 25 mcg PO QDAY SUPPLEMENT 05/31/24 apixaban 5 mg tablet (Eliquis) 5 mg PO BID BLOOD THINNER #180 tabs 08/26/24 buspirone 5 mg tablet 7.5 mg PO BID ANXIETY 10/03/24 calcium citrate 200 mg PO BID SUPPLEMENT 10/03/24 magnesium oxide 400 mg (241.3 mg magnesium) tablet 400 mg PO QHS SUPPLEMENT 10/03/24 diltiazem HCl 120 mg capsule,extended release 24 hr, controlled 120 mg PO QHS BP 10/12/24 famotidine 20 mg tablet 20 mg PO PRN PRN GERD 10/12/24 tramadol 50 mg tablet 50 mg PO BID PRN pain 10/12/24 ceftriaxone 2 gram intravenous solution 2 g IV Q24H 40 days 10/14/24 oxycodone 5 mg tablet 5 - 10 mg (1 - 2 x 5 mg) PO Q4H PRN PRN as needed for pain 7 days #42 tabs 10/17/24 sennosides 8.6 mg-docusate sodium 50 mg tablet 2 tab PO BID 3 days #12 tabs 10/17/24
--- NOTE | 2024-10-17 12:59 | PCM.DC.SUM ---
Providers Date of Admission: 10/13/24 Date of Discharge: 10/17/24 Primary Care Physician: Dr. Damian Craig MD Consultations 10/13/24 16:56 Consult: Infectious Disease Routine Consulting Provider: Ariel Traylor Reason for Consult: R TKA PJI EMERGENT Consult: No Notified: Yes Date Notified: 10/13/24 Time Notified: 16:57 Method of Notification: Text 10/13/24 16:57 Consult: Hospitalist Routine Consulting Provider: [facility] Reason for Consult: post op med management EMERGENT Consult: No Notified: Yes Date Notified: 10/13/24 Time Notified: 19:50 Method of Notification: Text Diagnosis Discharge Diagnosis (1) Infection of prosthetic right knee joint: Status: Acute Code(s): T84.53XA - Infection and inflammatory reaction due to internal right knee prosthesis, initial encounter Plan: 1. S/P irrigation debridement with complete synovectomy and polyethylene exchange right knee due to acute periprosthetic joint infection POD #1 2. Continue Pain Medications: Tylenol and oxycodone 3. DVT Prophylaxis: Patient will resume her Eliquis today in which she takes for atrial fibrillation. This will cover her for DVT prophylaxis. Patient denies past history of DVT or pulmonary embolism. 4. PT/OT: Weightbearing as tolerated with walker. Range of motion as tolerated. 5. H & H: Labs are not available yet, asymptomatic. Vitals have been stable. Currently on room air breathing in no distress 6. Infectious disease consultation: Microbiology is currently pending from intraoperative samples. Preoperatively patient did grow out Streptococcus group G. Currently on cefazolin until recommendations from infectious disease. Appreciate recommendations for antibiotics for discharge planning. 7. Hemovac drain: There has been 140 mL fluid removed overnight. Plan will be for removal prior to discharge when appropriate. 8. Continue Prevena incisional wound VAC: Plan will be to keep incisional wound VAC on for 1 week postoperatively with removal on October 20, 2024. Currently no output in canister or tubing 9. Encouraged Incentive Spirometry 10. Patient is aware of postoperative constipation that can occur from 1-3 days postoperatively. Will continue with senna 2 tablets twice daily until first bowel movement. Patient was advised if not having a bowel movement after day 3 she is to contact orthopedics so appropriate change can be made. Patient voiced understanding. 11. Continue postoperative medical treatment per medicine 12. Disposition: At this time patient is orthopedically stable. Awaiting recommendations from infectious disease for appropriate discharge planning for antibiotics. While in the hospital patient will continue to work with physical therapy in which she is weightbearing as tolerated and range of motion as tolerated. Continue above pain medications. She can resume the Eliquis today in which he takes for atrial fibrillation. Recommend ice and elevation. Case management will be involved for appropriate and safe discharge planning once final recommendations have been established. I have reviewed the [place] Automated Rx Reporting System (OARRS) report for this patient for refill pattern and other prescriber involvement as part of the appropriate surveillance for the provision of acute and chronic controlled medications. The report was requested and reviewed on the date of this entry and was considered in the prescribing process. This dictation was created using voice recognition software. Phonetic and/or grammatical errors may exist. Medications at Discharge Home Medications acetaminophen 500 mg tablet 1,000 mg PO Q8 PRN pain 07/23/22 ascorbic acid (vitamin C) 500 mg tablet (Vitamin C) 500 mg PO QAM osteoporosis 05/31/24 cholecalciferol (vitamin D3) 25 mcg (1,000 unit) tablet 25 mcg PO QDAY SUPPLEMENT 05/31/24 apixaban 5 mg tablet (Eliquis) 5 mg PO BID BLOOD THINNER #180 tabs 08/26/24 buspirone 5 mg tablet 7.5 mg PO BID ANXIETY 10/03/24 calcium citrate 200 mg PO BID SUPPLEMENT 10/03/24 magnesium oxide 400 mg (241.3 mg magnesium) tablet 400 mg PO QHS SUPPLEMENT 10/03/24 diltiazem HCl 120 mg capsule,extended release 24 hr, controlled 120 mg PO QHS BP 10/12/24 famotidine 20 mg tablet 20 mg PO PRN PRN GERD 10/12/24 tramadol 50 mg tablet 50 mg PO BID PRN pain 10/12/24 ceftriaxone 2 gram intravenous solution 2 g IV Q24H 40 days 10/14/24 oxycodone 5 mg tablet 5 - 10 mg (1 - 2 x 5 mg) PO Q4H PRN PRN as needed for pain 7 days #42 tabs 10/17/24 sennosides 8.6 mg-docusate sodium 50 mg tablet 2 tab PO BID 3 days #12 tabs 10/17/24 Hospital Course Operations - (Irrigation debridement with complete synovectomy and polyethylene exchange right knee due to acute periprosthetic joint infection) Summary of Care Provided Hospital Course: Patient is a 74-year-old female who has history of previous right total knee arthroplasty in February 2024. Patient presented to the emergency room on October 05, 2024 not feeling well. She tested positive for COVID-19. Patient was then seen by Dr. Elmo Velásquez in which joint aspiration did reveal purulent fluid. Based on the acuity of symptoms and organism the patient opted to proceed with a irrigation debridement with complete synovectomy and polyethylene exchange right knee. The patient underwent the above-stated procedure on October 13, 2024. Patient did receive perioperative antibiotics. Intraoperatively was uneventful. For details please see dictated operative note. The patient was placed in thigh-high teds, bilateral SCDs, remained stable in recovery. Patient was admitted to the 3rd floor at [facility]. The patient's pain was managed with the use of IV and p.o. pain medications. Patient participated in physical therapy. Patient was discharged on postoperative day 4 to home with home health physical therapy and nursing for IV antibiotics. Patient's pain was primarily managed on Tylenol. She has resumed her Eliquis which will cover her for DVT prophylaxis. Infectious disease was consulted while in the hospital with PICC line placed. Infectious disease recommended Rocephin ?6 weeks. Cultures did grow out Streptococcus group G. Patient initially had a Hemovac drain which was removed on postoperative day #2. She will continue with the pravena incisional wound VAC with removal on October 20, 2024. Patient will follow up with [facility] per postop instructions for reassessment. She will also follow up with infectious disease 2 weeks postoperatively with repeat labs per infectious disease. Weight / BMI Weight Weight: 96 kg Body Mass Index (BMI) 37.5 ABG / Lab / Microbiology Data 10/16/24 06:19 10/16/24 06:19 Microbiology: Microbiology 10/13/24 17:00 Tissue - Knee Gram Stain - Final 10/13/24 17:00 Tissue - Knee Wound Culture - Final Streptococcus group G 10/13/24 17:00 Tissue - Knee Anaerobic Culture - Preliminary Checking for anaerobes, further studies to follow. 10/13/24 17:00 Tissue - Knee Gram Stain - Final 10/13/24 17:00 Tissue - Knee Wound Culture - Final Streptococcus group G 10/13/24 17:00 Tissue - Knee Anaerobic Culture - Preliminary Checking for anaerobes, further studies to follow. 10/13/24 17:00 Tissue - Knee Gram Stain - Final 10/13/24 17:00 Tissue - Knee Wound Culture - Final No growth aerobically. 10/13/24 17:00 Tissue - Knee Anaerobic Culture - Preliminary No growth in 48 hours. D/C Instructions Discharge Diet: No restrictions Ice area for (Minutes): 20 (Every 1-2 hours while awake. Making sure to place a barrier between the ice machine in the skin.) Weight Bearing Status: Weight bearing as tolerated Keep extremity elevated above heart level: Operative Extremity Call your doctor if your incision/area has: Increased Pain/ Swelling, Increased Redness, Foul Smelling Discharge and Swelling at the incision site Call your doctor if you observe: Fever of 101 or Higher, Numbness or Tingling, Inability to have a bowel movement, Shortness of breath, Dizziness, Chest pain and Calf discomfort Additional Dressing/Incision Instructions: Once postoperative dressing has been removed, only use gentle soap and water over the incision. Do not use any ointments, Neosporin, salves, alcohol pads over the incision for 6 weeks postoperatively. Do not submerge underwater for 6 weeks postoperatively. Continue with MARILYN hose/elastic stockings for 2 weeks postoperatively. May remove at nighttime but needs to be placed back on the leg during the day. Do NOT use alcohol with narcotic pain medication. Do NOT make important decisions while taking narcotic medication. If you have problems with taking your medication (rash, itching, nausea, etc.) call the office at once. DC O2, CPAP, BIPAP Needs Home O2 Discharge instructions: No Meaningful Use Info Meaningful Use Meaningful Use Diagnoses (Choose all that apply): None applicable Ischemic Stroke Statin Dosing Therapy Reference: STATIN DOSE THERAPY REFERENCE: * Patients > 75 years receive moderate or high dose statin therapy. * Patients 75 years or YOUNGER should receive HIGH intensity statin dose unless contraindicated. You will be required to document reason for non-treatment if statin daily dose does not meet guidelines. HIGH DOSE STATIN THERAPY DAILY Atorvastatin > than or = to 40 mg Rosuvastatin > than or = to 20 mg Amlodipine + Atorvastatin > than or = to 2.5/40 mg Ezetimibe + Simvastatin 10/80 mg Simvastatin 80mg Discharge Plan Admission Admit Date/Time: 10/14/24 11:35 Attending Provider: Elmo Velásquez Primary Care Provider: Damian Craig Consulting Providers: Laurie Zuniga; Ariel Traylor Discharge Orders/Prescriptions Prescriptions: New ceftriaxone 2 gram recon soln 2 g IV Q24H 40 Days Rx Instructions: stop date 11/24/24. Dx: PJI weekly bmp, cbc, and esr. Fax to [phone]. Routine picc care per protocol. oxycodone 5 mg Tablet 5 - 10 mg PO Q4H PRN PRN (Reason: as needed for pain) 7 Days Qty: 42 0RF Rx Instructions: Take 1-2 tabs every 4-6 hours as needed for pain control. sennosides-docusate sodium 8.6-50 mg Tablet 2 tab PO BID 3 Days Qty: 12 0RF Continued acetaminophen 500 mg tablet 1,000 mg PO Q8 PRN (Reason: pain) Rx Instructions: Do not take more than 3000 mg Tylenol in a 24-hour period. cholecalciferol (vitamin D3) 25 mcg (1,000 unit) tablet 25 mcg PO QDAY ascorbic acid (vitamin C) [Vitamin C] 500 mg tablet 500 mg PO QAM buspirone 5 mg tablet 7.5 mg PO BID calcium citrate 200 mg (950 mg) tablet 200 mg PO BID magnesium oxide 400 mg (241.3 mg magnesium) tablet 400 mg PO QHS tramadol 50 mg tablet 50 mg PO BID PRN (Reason: pain) diltiazem HCl 120 mg capsule,ext.rel 24h degradable 120 mg PO QHS famotidine 20 mg tablet 20 mg PO PRN PRN (Reason: GERD) Eliquis 5 mg tablet 5 mg PO BID Qty: 180 4RF Referrals / Follow Up: Damian Craig MD [Primary Care Provider] - Disposition Disposition (needs filled in before D/C Order can be placed): Home Health Service
--- NOTE | 2024-10-17 14:18 | PCM.PN.HOSP ---
Reason for Visit Reason for Visit: Diagnoses Other acute postprocedural pain (10/14/24) Infection and inflammatory reaction due to internal right knee prosthesis, initial encounter (10/14/24) COVID-19 (10/14/24) Encounter for other preprocedural examination (10/14/24) Subjective Subjective Patient feeling well today with no new or acute complaints Objective Data Objective Data Vital Signs: Vital Signs Temp Pulse Resp BP Pulse Ox O2 Del Method O2 Flow Rate 97.9 F 94 17 134/68 H 97 Room Air 2 10/17/24 08:23 10/17/24 08:23 10/17/24 08:23 10/17/24 08:23 10/17/24 08:23 10/17/24 08:23 10/14/24 01:13 Oxygen Flow Rate (L/min) 2 Oxygen Delivery Method Room Air Weight: 96 kg Body Mass Index (BMI) 37.5 Intake & Output: Intake and Output for Last 24 Hours 10/15/24 10/16/24 10/17/24 23:59 23:59 23:59 Intake Total 450 / 650 1172.5 / 1372.5 400 / 400 Balance 450 / 650 1172.5 / 1372.5 400 / 400 Lab / Micro Data 10/16/24 06:19 10/16/24 06:19 Micro: Microbiology 10/13/24 17:00 Tissue - Knee Gram Stain - Final 10/13/24 17:00 Tissue - Knee Wound Culture - Final Streptococcus group G 10/13/24 17:00 Tissue - Knee Anaerobic Culture - Final No anaerobic bacteria isolated. 10/13/24 17:00 Tissue - Knee Gram Stain - Final 10/13/24 17:00 Tissue - Knee Wound Culture - Final Streptococcus group G 10/13/24 17:00 Tissue - Knee Anaerobic Culture - Final No anaerobic bacteria isolated. 10/13/24 17:00 Tissue - Knee Gram Stain - Final 10/13/24 17:00 Tissue - Knee Wound Culture - Final No growth aerobically. 10/13/24 17:00 Tissue - Knee Anaerobic Culture - Preliminary No growth in 48 hours. Physical Exam Narrative General: Alert, oriented, no apparent distress HEENT: Atraumatic, normocephalic Eyes: extraocular movements grossly intact Neck: Supple Respiratory: normal respiratory effort Cardiovascular: Irregularly irregular, not presently tachycardic GI: nondistended Extremities: Moving all extremities Neuro: No overt focal neurological deficits Psych: Cooperative Assessment & Plan Assessment/Plan (1) Infection of prosthetic right knee joint: PLAN: Plan # Right prosthetic knee joint infection secondary to group G strep -Had right total knee arthroplasty 02/18/2024 and began to have problems again with her knee on October 05, 2024. She had joint aspiration in the office with Dr. Velásquez which revealed infection with Streptococcus and patient brought to the hospital and admitted with irrigation debridement and complete synovectomy -ID following for antibiotics. Aspiration grew group G strep so patient had PICC ordered and 6 weeks of IV Rocephin with stop date 11/24/2024 with weekly labs and ID follow-up in 2 to 3 weeks -10/15: ID following, PICC ordered with IV Rocephin. Will need weekly labs and follow-up with ID in 2 to 3 weeks. Patient medically stable to discharge from my point once antibiotic plan finalized and okay to do so with orthopedics and infectious disease -10/16: Awaiting home health for discharge, patient on Rocephin -10/17: Patient to discharge today on Rocephin # COVID-19 positive -No respiratory symptoms and vitally stable -No indication for Decadron or remdesivir -10/15: 98% on room air, no further acute management -10/16: Respiratory status stable -10/17: No further workup or management necessary, patient stable # Paroxysmal atrial fibrillation -Patient on Eliquis and diltiazem -10/15: On Eliquis, heart rate intermittently low 100s but not consistently so, no A-fib with RVR noted, no symptoms, blood pressure and oxygen saturation is stable. Continue diltiazem, suspect this is physiologic and not pathologic. No further workup or management at this time given vital stability, relatively low grade intermittent tachycardia and lack of any specific complaints that would lead me to believe there was any underlying additional process, discussed this with orthopedics -10/16: Continues to intermittently have very low-grade elevations in heart rate, had just been up in chair and then doing exercises on side of bed so was very slight elevation heart rate. Given patient otherwise vitally stable and also is down hemoglobin postsurgery as well as is on antibiotics for an infection and patient reports p.o. intake suspect this is all causing mild physiologic tachycardia especially if she is getting up or moving around and would anticipate that this would improve over time, does not seem that there is any actual A-fib with RVR or anything else pathologic, due to her saying she is not eating and drinking particularly well will add gentle IV fluids, do not think this is something that would preclude discharge tomorrow or the following day. Patient can follow-up with her primary care physician. Continue Eliquis and diltiazem -10/17: Irregularly irregular but not tachycardic, exam, no cardiac or respiratory complaints Chronic medical problems: #anxiety -Continue home medications #Hypertension -Continue home diltiazem #DVT ppx: On Eliquis Laurie Zuniga MD Charges/Coding Visit Charges Inpatient E&M: 51355 Subs Hosp L1
--- NOTE | 2024-10-17 14:52 | CHAPLAIN ---
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
== END 2024-10-17 12:13 | disposition home health service (06) | DRG 485 ==
LOC: ACINP 17:50 → MS3 17:51
PROVIDERS: Internal Medicine; Admitting Provider Specialist; PCP Family Medicine; Referring Provider Specialist; Visit Provider Specialist
PROC: 0SBC0ZZ Excision of Right Knee Joint, Open Approach (ICD-10-PCS; CPT 27301; principal; 2024-10-13 14:10)
DX: T84.53XA Infection and inflammatory reaction due to internal right knee prosthesis, initial encounter (principal); U07.1 COVID-19; I10 Essential (primary) hypertension; Z68.37 Body mass index [BMI] 37.0-37.9, adult; I48.0 Paroxysmal atrial fibrillation; F41.9 Anxiety disorder, unspecified; E66.9 Obesity, unspecified; Z87.891 Personal history of nicotine dependence; Z79.899 Other long term (current) drug therapy; Z79.01 Long term (current) use of anticoagulants; Z96.651 Presence of right artificial knee joint; X58.XXXA Exposure to other specified factors, initial encounter
CPT/HCPCS: 36415; 36569; 73560; 80048; 82962; 83735; 85025; 85027; 85652; 86140; 87015; 87070; 87075; 87077; 87101; 87102; 87116; 87186; 87205; 87206; 89050; 89051; 94668; 97110; 97116; 97162; 97166; 97530; 99252; C1776; A4216; G0463; J0696; J2405; J3475

== ENCOUNTER 2024-10-24 10:28 | Outpatient (RCR) | payer MEDICARE, OTHER, SELFPAY ==
[2024-10-24 11:07] LABS: Erythrocyte Sedimentation Rate 52 mm/hr (0-30)
[2024-10-24 11:09] LABS: Hematocrit 31.8 % (37-47); Hemoglobin 10.2 g/dL (12.0-15.0); Mean Corp Hgb Conc 32.1 g/dL (32-36); Mean Corpuscular Hgb 29.7 pg (27.0-32.0); Mean Corpuscular Volume 92.4 fL (81-99); Mean Platelet Vol. 8.9 fl (6.2-12.0); Platelet Count 246 K/mm3 (150-450); RBC Distribution Width CV 12.4 % (11.6-14.6); RBC Distribution Width SD 41.3 fl (35.1-43.9); Red Blood Count 3.44 M/mm3 (4.2-5.4); White Blood Count 4.8 K/mm3 (4.4-11.0)
[2024-10-24 11:21] LABS: Anion Gap 4 (5-15); BUN 14 mg/dL (7-18); BUN/Creat Ratio 28.6 RATIO (10-20); Chloride 106 mmol/L (98-107); Creatinine, Serum 0.49 mg/dL (0.55-1.02); EST Glomerular Filtration Rate 132 mL/min (>60); Est Glom Filt Rate - Afr Amer 160 mL/min (>60); Glucose 124 mg/dL (74-106); Potassium 3.9 mmol/L (3.5-5.1); Sodium Level 137 mmol/L (136-145)
== END 2024-11-04 23:59 ==
LOC: LABSPEC 10:28
PROVIDERS: PCP Family Medicine; Referring Provider Internal Medicine Infectious Disease; Visit Provider Internal Medicine Infectious Disease
DX: Z45.2 Encounter for adjustment and management of vascular access device
CPT/HCPCS: 80048; 85027; 85652

== ENCOUNTER 2024-10-31 14:44 | Outpatient (RCR) | payer MEDICARE, OTHER, SELFPAY ==
[2024-10-31 15:02] VITALS: BP 146/77; PULSE 109; RESP 16; TEMP 36.6; BMI 35.4
--- NOTE | 2024-11-01 09:34 | WC ---
PHOTO 10/31/24 RIGHT KNEE INCISION
--- NOTE | 2024-11-01 14:19 | PCM.WC.HP ---
History of Present Illness Date of Service: 10/31/24 Chief Complaint: Right knee wound after infected arthroplasty History of Wound: Joselin Diane is a delightful 74-year-old female with past medical history of a right total knee arthroplasty in February 2024 who presented back to her arthroplasty surgeon Dr. Velásquez with an acute pyogenic right total knee infection earlier this month in October 2024 and was taken back to the operating room on 13 October 2024 for irrigation/debridement with complete synovectomy and a polyethylene exchange of the right knee. Per operative report, the joint was closed with layered 1-0 Vicryl interrupted sutures and the subcuticular layer was closed with 2-0 interrupted Vicryl sutures followed by isabella for the final skin closure. The patient was placed on IV antibiotics by infectious disease, as her cultures grew Streptococcus group G (currently on ceftriaxone per infectious disease consultation). She followed up with Dr. Velásquez in clinic and had some drainage and wound healing issues from the distal portions of the incision and at some point nylon stitches were used to bridge the gap and keep the wound together (isabella are out on exam today). Today she denies any fevers chills or any significant drainage. Of note the patient has atrial fibrillation and is chronically anticoagulated on Eliquis and also takes diltiazem for rate control and blood pressure. She is not a smoker. No history of diabetes. No personal or family history of bleeding or clotting problems or problems with anesthesia. [facility] Medical History Loss of hearing History of steroid therapy Uses wheelchair Walker as ambulation aid Bladder disease Heartburn History of edema History of stress test History of echocardiogram Cardiology follow-up encounter Essential hypertension Other acute postprocedural pain Wears glasses Arthritis Migraine headache Former smoker History of pain when walking Anticoagulant long-term use Paroxysmal atrial fibrillation Anxiety Obesity Paroxysmal supraventricular tachycardia Dizziness Palpitations Uterovaginal prolapse, incomplete Home Medications ?Medication ?Instructions ?Recorded ?Last Taken ?Type acetaminophen 500 mg tablet 1,000 mg PO Q8 PRN pain 07/23/22 10/13/24 01:00 History ascorbic acid (vitamin C) 500 mg 500 mg PO QAM osteoporosis 05/31/24 Unknown History tablet (Vitamin C) cholecalciferol (vitamin D3) 25 25 mcg PO QDAY SUPPLEMENT 05/31/24 10/12/24 History mcg (1,000 unit) tablet apixaban 5 mg tablet (Eliquis) 5 mg PO BID BLOOD THINNER #180 tabs 08/26/24 10/12/24 Rx buspirone 5 mg tablet 7.5 mg PO BID ANXIETY 10/03/24 10/13/24 History calcium citrate 200 mg PO BID SUPPLEMENT 10/03/24 10/12/24 History magnesium oxide 400 mg (241.3 mg 400 mg PO QHS SUPPLEMENT 10/03/24 Unknown History magnesium) tablet diltiazem HCl 120 mg 120 mg PO QHS BP 10/12/24 10/12/24 History capsule,extended release 24 hr, controlled famotidine 20 mg tablet 20 mg PO PRN PRN GERD 10/12/24 Unknown History ceftriaxone 2 gram intravenous 2 g IV Q24H 40 days 10/14/24 Unknown Rx solution oxycodone 5 mg tablet 5 - 10 mg (1 - 2 x 5 mg) PO Q4H 10/17/24 Unknown Rx PRN PRN as needed for pain 7 days #42 tabs Allergy/AdvReac Type Severity Reaction Status Date / Time metoprolol AdvReac Mild Nausea Verified 10/31/24 15:21 flecainide AdvReac nausea Verified 10/31/24 15:21 Family History Mother CAD (coronary artery disease) Myocardial infarction, Onset Age: 80 Father Asthma COPD (chronic obstructive pulmonary disease) Brother Colon cancer COPD (chronic obstructive pulmonary disease) Former smoker Grandmother Breast cancer Grandfather Colon cancer Surgical History History of knee replacement (02/18/24) History of total hip arthroplasty (05/08/21) Hx of total hip arthroplasty History of esophagogastroduodenoscopy (EGD) Hx of colonoscopy History of bladder suspension procedure (2017) H/O total hysterectomy (2018) Social History Smoking Status: Former smoker how long ago did patient quit smokin years ago alcohol intake: never substance use type: does not use caffeine: Yes Type: coffee Number of servings: 2 Vital Signs Vital Signs Vital Signs: 10/31/24 15:02 Temperature 97.8 F Temperature Source Temporal Pulse Rate 109 H Respiratory Rate 16 Blood Pressure 146/77 H Blood Pressure Mean 100 Blood Pressure Source Monitor Blood Pressure Position Sitting Blood Pressure Location Left Arm Oxygen Delivery Method Room Air Weight Weight: 200 lb Body Mass Index (BMI) 35.4 Physical Exam Narrative Right upper extremity Inspection: No varicosities or swelling or skin changes on the right lower extremity. Wound: Dehiscence of the distal aspect of the right knee surgical incision. No mala purulence or fluid collections at this time. Fibrinous exudate and debris in the area of dehiscence. Vascular: 2+ dorsalis pedis and posterior tibial pulses Sensation: Sensation to light touch intact throughout the foot and ankle. Debridement Note Debridement Note Wound debrided: Right knee wound Laterality: Right Type of Debridement: Selective debridement Anesthesia Used: 4% Lidocaine Solution Depth: in the subcutaneous layer Percentage of wound debrided: 100 Instrument Used: 7mm curette Severity: Fat Layer Exposed Amount of bleeding with debridement: Mild Bleeding Controlled with: Compression and gauze Patient tolerated procedure: Patient tolerated procedure well Post-Debridement Measurements and Additional Note: Post-Debridement Measurements/Treatment - Nurse 1 - General Ulcer Assessment Start: 10/31/24 15:02 Freq: Status: Active Protocol: ABILIO Activity Type Activity Date Activity User E-sign Co-sign Detail Recorded Client Recorded Date Recorded By Document 10/31/24 15:02 [facility] [id number] 10/31/24 15:19 [facility] 10/31/24 15:02 - Today's Visit Information Type of service Initial Visit Arrival Mode Ambulatory, Walker Transfer Assistance None Accompanied by and sebas Patient Identification Verified (Name & Yes ) Height and Weight Height 5 ft 3 in Weight 200 lb Weight in Pounds 200.0 lbs Weight Measurement Method Stated by Patient Body Mass Index (BMI) 35.4 BMI Classification Obese BSA - David 1.93 Vital Signs Temperature (97.8 F-99.1 F) 97.8 F Temperature Source Temporal Pulse Rate (60-100) 109 H Pulse Location Monitor Respiratory Rate (12-18) 16 Respiratory rate source Observation Oxygen Delivery Method Room Air Blood Pressure (90/60-120/80) 146/77 H Blood Pressure Mean 100 Source Monitor Position Sitting Blood Pressure Location Left Arm History Since Last Visit- (Skip if this is Patient's initial visit) Left Footwear Regular Shoe Right Footwear Regular Shoe Pain Scale: 0-10 Numeric Is Patient Pain Free? Yes Communication Assessment Able to Read Yes Able to Write Yes Communication Tools None Right Hearing Abillity Normal Left Hearing Abillity Normal Visual Assistive Devices Glasses Teaching Assessment Preferences Verbal,Written, Audio/Visual, Demonstration Barriers to Learning None Readiness To Learn Excellent Willingness to Engage in Self Management High Activies Readiness to Engage in Self Management High Activities Anxiety Level Calm Cooperation Cooperative Perception Coherent Interest in Health Problem Asks Questions Education Importance Acknowledges Need Does Patient Smoke tobacco or other No substances Smoking Status Former smoker Is Patient Diabetic No Culture/Shinto/Jitterbug Operator Cultural/Shinto Needs that may affect No Treatment Plan Teaching: Wound Center *Welcome to the Wound Center -Person Taught Patient,Family -Teaching Method Discussion -Response to teaching Verbalize Understanding - Nurse 1 - General Ulcer Measurement Start: 10/31/24 15:02 Freq: Status: Active Protocol: Activity Type Activity Date Activity User E-sign Co-sign Detail Recorded Client Recorded Date Recorded By Document 10/31/24 15:02 [facility] [id number] 10/31/24 15:19 [facility] 10/31/24 15:02 Wound Center Nurse 1 #1- R KNEE INCISION POST OP -Combined with other wound No -Current Size (cm) - Length 7.2 -Current Size (cm) - Width 2 -Current Size (cm) - Depth 0.2 -Total Square Cm 14.4 -Date of Last Picture (Recall this 10/31/24 field) -Photo Taken Yes -Tunneling No -Undermining/Tunneling No -Circular Undermining No -Exudate Amt Medium -Exudate Type Serosanguineous -Wound Margin Distinct, Outline Attached -Granulation Amt Medium (34-66%) -Granulation Quality Red -Slough/Fibrin Yes -Necrosis Amt Medium (34-66%) -Necrotic Tissue Type Eschar -Texture (Nancy-wound Skin Appearance) Assessed -Moisture (Nancy-wound Skin Appearance) Assessed,Dry/ Scaly -Color (Nancy-wound Skin Appearance) Assessed -Temperature (Nancy-wound Skin No Abnormality Appearance) (Pt Warm) -Tenderness on Palpation (Nancy-wound No Skin Appearance) -Ulcer Cleansing Soap and Water -Foul Odor after Cleansing No -Anesthetic Used 5% Lidocaine Gel -Wound Comment(s) SOME SUTURES INTACT Lower Limb Edema Present Yes Right Calf (cm) 42 Right Ankle (cm) 23.4 - Nurse 2 - General Ulcer CM Notes Start: 10/31/24 15:02 Freq: Status: Active Protocol: Activity Type Activity Date Activity User E-sign Co-sign Detail Recorded Client Recorded Date Recorded By Document 10/31/24 16:05 JF [id number] 10/31/24 16:12 JF 10/31/24 16:05 Wound Center Nurse 2 #1- R KNEE INCISION POST OP -Time 16:06 -Correct Patient Yes -Correct Side, Site, Position Yes -Correct Procedure Yes -Procedure Performed Yes -Type of Procedure Debridement -Clinical Debridement Muscle / Fascia -Tissue Removed Muscle -Post Debridement (cm) - Length 6.3 -Post Debridement (cm) - Width 0.7 -Post Debridement (cm) - Depth 1.3 -Total Square (Post) (cm) 4.41 -Area of Debridement (cm) - Length 6.3 -Area of Debridement (cm) - Width 0.7 -Total Square (Area) (cm) 4.41 -Tunneling No -Undermining/Tunneling No -Circular Undermining No -Wound/Ulcer Outcome Not Healed -Ulcer Cleansing Rinsed/ Irrigated with Saline -Foul Odor after Cleansing No -Bioengineered Tissue No -Bleeding Controlled with Pressure -Treatment Response Procedure Tolerated Well -Offloading No -Debridement - Muscle / Fascia, 1st Yes 20sq cm Pain Scale: 0-10 Numeric Is Patient Pain Free? Yes - Nurse 3 - General Ulcer D/C NN Start: 10/31/24 15:02 Freq: Status: Active Protocol: Activity Type Activity Date Activity User E-sign Co-sign Detail Recorded Client Recorded Date Recorded By Document 10/31/24 16:17 KW [id number] 10/31/24 16:18 10/31/24 16:17 Wound Care Center Nurse 3 #1- R KNEE INCISION POST OP -Primary Dressing Applied Hysept ($) -Primary Dressing Covered/Secured with Dry Gauze, Secured with Tape Pain Scale: 0-10 Numeric Is Patient Pain Free? Yes - Visit Discharge Discharge Condition Stable Ambulatory Status Ambulatory Transportation Private Auto Medication Reconcilliation completed & No provided to patient/care provider Clinical Summary of Care Provided Yes Charges/Coding Visit Charges Office Visits / Consults: 80761 OV L5 New 60min (Spent significant time reviewing chart, coordinating care with patient and orthopedic surgeon, evaluating the wound, and recommending dressings including the wound VAC) Procedures Integumentary 111xxx-113xx: 20909 Rosy subq tissue 20 sq cm/< (With 25 modifier) Assessment/Plan Assessment/Plan (1) Infection of prosthetic right knee joint: CODE(S): T84.53XA - Infection and inflammatory reaction due to internal right knee prosthesis, initial encounter PLAN: I talked the patient extensively about concern for soft tissue coverage. I talked to Dr. Velásquez also about his concerns. Following debridement of the tissue today, I think it is appropriate to attempt wound VAC to improve granulation and attempt to bridge the area of dehiscence. Patient was informed of risks, benefits, and alternatives to this treatment. We also talked about potential need for flap coverage to improve soft tissue overlying the knee prosthesis, which could possibly be our next option if there is further demarcation of the tissue and need for further debridement in the operating room. I will reassess the wound on Thursday, 07 November 2024 (next week), after initiation of the wound VAC. Flap option would be a medial gastrocnemius. Patient happy with the plan at this time. Dr. Velásquez happy with the plan. The patient will continue twice daily wet-to-dry dressings until she gets the wound VAC.
== END 2024-11-04 23:59 | disposition home or self-care (01) ==
LOC: WC 14:44
PROVIDERS: PCP Family Medicine; Referring Provider Surgery Plastic and Reconstructive Surgery; Visit Provider Surgery Plastic and Reconstructive Surgery
DX: T84.53XA Infection and inflammatory reaction due to internal right knee prosthesis, initial encounter (principal); L97.812 Non-pressure chronic ulcer of other part of right lower leg with fat layer exposed; I48.91 Unspecified atrial fibrillation; I10 Essential (primary) hypertension; Z87.891 Personal history of nicotine dependence; Z90.710 Acquired absence of both cervix and uterus; Z79.01 Long term (current) use of anticoagulants; Z96.651 Presence of right artificial knee joint; B95.4 Other streptococcus as the cause of diseases classified elsewhere
CPT/HCPCS: 11043; 99214; G0463

== ENCOUNTER → 2024-11-01 | Outpatient (CLI) | payer MEDICARE, OTHER, SELFPAY ==
[2024-11-01 18:30] LABS: Hematocrit 34.7 % (37-47); Hemoglobin 11.1 g/dL (12.0-15.0); Mean Corpuscular Hgb 29.6 pg (27.0-32.0); Mean Corpuscular Volume 92.5 fL (81-99); Mean Platelet Vol. 8.9 fl (6.2-12.0); Platelet Count 316 K/mm3 (150-450); RBC Distribution Width CV 13.3 % (11.6-14.6); RBC Distribution Width SD 44.6 fl (35.1-43.9); Red Blood Count 3.75 M/mm3 (4.2-5.4); White Blood Count 5.9 K/mm3 (4.4-11.0)
[2024-11-01 18:31] LABS: Scan Indicated on CBC? Y/N NO
[2024-11-01 18:44] LABS: Anion Gap 9 (5-15); BUN 21 mg/dL (7-18); BUN/Creat Ratio 37.9 RATIO (10-20); Calcium,Total 9.5 mg/dL (8.5-10.1); Chloride 102 mmol/L (98-107); Creatinine, Serum 0.55 mg/dL (0.55-1.02); EST Glomerular Filtration Rate 114 mL/min (>60); Est Glom Filt Rate - Afr Amer 138 mL/min (>60); Glucose 113 mg/dL (74-106); Potassium 3.6 mmol/L (3.5-5.1); Sodium Level 137 mmol/L (136-145)
[2024-11-01 18:53] LABS: Erythrocyte Sedimentation Rate 50 mm/hr (0-30)
== END | disposition home or self-care (01) ==
PROVIDERS: PCP Family Medicine; Visit Provider Internal Medicine Infectious Disease
DX: T84.53XD Infection and inflammatory reaction due to internal right knee prosthesis, subsequent encounter (principal); X58.XXXD Exposure to other specified factors, subsequent encounter
CPT/HCPCS: 80048; 85027; 85652

== ENCOUNTER 2024-11-09 17:54 | Inpatient (IN) | payer MEDICARE, OTHER, SELFPAY ==
[2024-11-09] VITALS (7 sets, daily range): BP systolic 97–119; BP diastolic 52–66; PULSE 112–154; RESP 12–26; TEMP 36.6–37.7; O2SAT 92–98; BMI 34.2; BMI 35.3
--- NOTE | 2024-11-09 18:47 | EDS_ITS ---
HPI History of Present Illness Chief Complaint: General Illness Narrative Narrative: Chief complaint and HPI: Chills. 74-year-old female with past medical history of atrial fibrillation on Eliquis, HTN, right knee infection on antibiotic presents for evaluation of chills. History taken by patient as well as medical record. Patient states that she is currently on antibiotics with Rocephin daily for her right knee infection. She did receive her Rocephin today. On chart review, patient developed an acute pyogenic right total knee infection in October. She was taken back to the operating room operating on 10/13 for irrigation/debridement with complete synovectomy and a polyethylene exchange of the right knee. Cultures grew Streptococcus group G. Patient is currently on Rocephin per infectious disease. She follows with Dr. Chisholm for a wound currently being treated with wound VAC. Patient states that a nurse came to her house today to draw blood from her PICC line. She states shortly later she developed rigors so she presented to the emergency department. She denies any worsening pain in her right knee. Denies any fever, shortness of breath, chest pain, abdominal pain, nausea, vomiting, dysuria, URI symptoms. Review of systems: See HPI Medications: As listed on the chart Allergies: As listed on the chart PFSH: Per chart Vital signs: As listed on the chart. Reviewed. Physical exam: Gen: A&O x3, NAD Head: Normocephalic, atraumatic Eyes: No sclera icterus, conjunctiva clear, PERRL, EOMI ENT: Dry mucous membranes Neck: Trachea midline, No JVD CV: Tachycardic, regular rhythm, no murmurs Resp: Lungs CTA BL, no w/r/c GI: Abd soft, non-distended, non-tender, no r/r/g Musc: Moves all extremities, no deformity, right knee with wound VAC, right knee mildly tender with movement, no erythema however warmer to touch than left knee Skin: Warm, dry, right upper extremity PICC line Neuro: Alert, oriented, grossly intact, sensation intact Psych: Cooperative, appropriate mood and affect [facility] Medical History Loss of hearing History of steroid therapy Uses wheelchair Walker as ambulation aid Bladder disease Heartburn History of edema History of stress test History of echocardiogram Cardiology follow-up encounter Essential hypertension Other acute postprocedural pain Wears glasses Arthritis Migraine headache Former smoker History of pain when walking Anticoagulant long-term use Paroxysmal atrial fibrillation Anxiety Obesity Paroxysmal supraventricular tachycardia Dizziness Palpitations Uterovaginal prolapse, incomplete Home Medications ?Medication ?Instructions ?Recorded ?Last Taken ?Type acetaminophen 500 mg tablet 1,000 mg PO Q8 PRN pain 10/13/24 01:00 History ascorbic acid (vitamin C) 500 mg 500 mg PO QAM osteopo rosis 05/31/24 Unknown History tablet (Vitamin C) cholecalciferol (vitamin D3) 25 25 mcg PO QDAY SUPPLEM ENT 05/31/24 10/12/24 History mcg (1,000 unit) tablet apixaban 5 mg tablet (Eliquis) 5 mg PO BID BLOOD THINN ER #180 tabs 08/26/24 10/12/24 Rx buspirone 5 mg tablet 5 mg PO .q1-2days ANXIETY 11/09/24 History magnesium oxide 400 mg (241.3 mg 400 mg PO QHS SUPPLEM ENT 10/03/24 Unknown History magnesium) tablet ceftriaxone 2 gram intravenous 2 g IV Q24H 40 days 07/29 Unknown Rx solution diltiazem HCl 180 mg 180 mg PO QPM 11/09/24 Unkno wn History capsule,extended release 24 hr, controlled (DILT-XR) hydroxyzine HCl 25 mg tablet 25 mg PO QHS PRN PRN anxi ety 11/09/24 Unknown History quetiapine 25 mg tablet 25 mg PO DAILY 11/09/24 Unkn own History Allergy/AdvReac Type Severity Reaction Status Date / Time metoprolol AdvReac Mild Nausea Verified 11/09/24 17:55 flecainide AdvReac nausea Verified 11/09/24 17:55 Family History Mother CAD (coronary artery disease) Myocardial infarction, Onset Age: 80 Father Asthma COPD (chronic obstructive pulmonary disease) Brother Colon cancer COPD (chronic obstructive pulmonary disease) Former smoker Grandmother Breast cancer Grandfather Colon cancer Surgical History History of knee replacement (02/18/24) History of total hip arthroplasty (05/08/21) Hx of total hip arthroplasty History of esophagogastroduodenoscopy (EGD) Hx of colonoscopy History of bladder suspension procedure (2018) H/O total hysterectomy (2018) Social History (Updated 11/10/24 @ 00:[address] Shadia Nance MD) household members: spouse Smoking Status: Former smoker how long ago did patient quit smokin years ago alcohol intake: never substance use type: does not use caffeine: Yes Type: coffee Number of servings: 2 EXAM Physical Exam Const Vital Signs: 11/09/24 17:55 11/09/24 19:14 11/09/24 20:35 Temperature 99.8 F H 98.4 F Temperature Source Oral Oral Pulse Rate 154 H 127 H Respiratory Rate 20 H 12 Blood Pressure 119/54 L 108/59 L Blood Pressure Mean 75 75 Pulse Ox 97 96 Oxygen Delivery Method Room Air Room Air Room Air 11/09/24 21:35 Temperature 97.9 F Temperature Source Temporal Pulse Rate 122 H Respiratory Rate 21 H Blood Pressure 97/52 L Blood Pressure Mean 67 Pulse Ox 97 Oxygen Delivery Method Room Air MDM MDM MDM Narrative Medical decision making narrative: 74-year-old female with past medical history of atrial fibrillation on Eliquis, HTN, right knee infection on antibiotic presents for evaluation of chills/rigors with known right knee infection. On presentation patient is tachycardic and tachypneic. Temperature 99.8 ?F blood patient did take Tylenol prior to arrival. No hypotension. Given patient's vital signs with known infection patient was made a sepsis alert. 30 cc/kg bolus was not given given that patient is not hypotensive and her 30 cc/kg bolus is 3 L. Will start with a liter. Suspect her knee as a source of infection/symptoms. Patient is already on Rocephin therefore will broaden with vancomycin and Zosyn. Infectious workup ordered as differential diagnosis also includes viral illness, pneumonia, UTI. EKG and chest x-ray reviewed see below. CBC without leukocytosis. Patient has chronic anemia. New thrombocytopenia with platelet count of 132. INR 1.4. CMP with mild hypokalemia of 3.3. No MARILIN. Lactic acid 2.3. Another NS bolus ordered. Patient has worsening transaminitis. With an elevated bilirubin of 1.2. Patient not having any abdominal pain. UA negative for UTI. COVID, flu, RSV negative. X-ray of the right knee without fracture or osteomyelitis. Patient will warrant admission for sepsis likely secondary to right knee infection. Patient was updated of all the results and confirmed understanding of the plan. Patient was discussed with the hospitalist service, Dr. Murphy. She accepted admission but would like orthopedic surgery and plastic surgery notified. I spoke with Dr. Velásquez with orthopedic surgery. He will see the patient in consult. Patient may need surgery tomorrow. Recommends keeping the patient n.p.o. N.p.o. order placed. I spoke with plastic surgeon Dr. Duffy she will see the patient in consult as well. EKG: Interpreted by me/EM physician: EKG shows sinus tachycardia with a heart rate of 149. No acute ischemic changes. EKG shows sinus tachycardia with no acute ischemic changes. Heart rate 127. Diagnostic: Interpreted by me/EM physician: Chest x-ray without pneumonia, effusion, cardiomegaly, pneumothorax 30 minutes of critical care time utilized in managing the patient. This is due to high probability of and deterioration of the patient based on the patient's condition and excludes any separately billable procedures. Impression: 1. Sepsis secondary to right knee infection 2. Chronic anemia 3. Thrombocytopenia 4. Transaminitis 5. Hyperbilirubinemia 6. Mild hypokalemia 7. Lactic acidosis Lab Data Labs: Laboratory Results - last 24 hr 11/09/24 11/09/24 18:54 20:14 WBC 6.1 RBC 3.80 L Hgb 11.2 L Hct 34.8 L MCV 91.6 MCH 29.5 MCHC 32.2 RDW Std Deviation 45.1 H RDW Coeff of Marielos 13.3 Plt Count 132 L MPV 9.4 Immature Gran % (Auto) 1.200 H Neut % (Auto) 89.6 H Lymph % (Auto) 5.0 L [place] % (Auto) 2.1 Eos % (Auto) 1.8 Baso % (Auto) 0.3 Absolute Neuts (auto) 5.4 Absolute Lymphs (auto) 0.30 L Nucleated RBC % 0 PT 16.8 H INR 1.3 APTT 29.6 Sodium 138 Potassium 3.3 L Chloride 106 Carbon Dioxide 22.0 Anion Gap 10 BUN 30 H Creatinine 0.70 Estim Creat Clear Calc 66.69 Est GFR (MDRD) Af Amer 105 Est GFR (MDRD) Non-Af 87 BUN/Creatinine Ratio 42.7 H Glucose 109 H Lactic Acid 2.3 H* Calcium 8.7 Magnesium 1.9 Total Bilirubin 1.20 H AST 233 H ALT 211 H Alkaline Phosphatase 512 H Total Protein 6.6 Albumin 2.4 L Globulin 4.2 Albumin/Globulin Ratio 0.6 L Urine Color Yellow Urine Clarity Clear Urine pH 5.0 Ur Specific [place] 1.015 Urine Protein 30 H Urine Glucose (UA) Normal Urine Ketones 5 H Urine Occult Blood 10 H Urine Nitrite Negative Urine Bilirubin 1 H Urine Urobilinogen 1 H Ur Leukocyte Esterase 25 H Urine RBC 0 SEEN Urine WBC 0-5 SEEN Ur Squamous Epith Cells 0-5 SEEN Urine Bacteria 0 SEEN Urine Mucus 0 SEEN Radiography Diagnostic Testing: Clinical Impression(s) from Imaging Studies Knee X-Ray 11/09/24 18:50 IMPRESSION: Intact right knee arthroplasty. Large knee joint effusion. Reading Location: [facility] Chest X-Ray 11/09/24 19:20 IMPRESSION: NEGATIVE SINGLE VIEW OF THE CHEST. Reading Location: [facility] Discharge Plan Disposition Disposition: Acute Care Hospital [facility] Discharge Date/Time: 11/09/24 23:19
--- NOTE | 2024-11-09 18:48 | EKG12_ITS ---
Test Reason : Blood Pressure : */* mmHG Vent. Rate : 149 BPM Atrial Rate : 149 BPM P-R Int : 130 ms QRS Dur : 74 ms QT Int : 256 ms P-R-T Axes : 62 8 14 degrees QTcB Int : 403 ms Critical Test Result: High HR Sinus tachycardia Otherwise normal ECG Confirmed by FREDERICK WAGNER, MALIKA ([id number]), production editor MELINDA STAHL ([id number]) on 11/12/2024 7:19:36 AM Referred By: Confirmed By: MALIKA MACK MD
--- NOTE | 2024-11-09 18:50 | RAD_ITS ---
PROCEDURE: KNEE 3 VIEWS REASON FOR EXAM: Known infection. TECHNIQUE: 3 view(s) of the right knee COMPARISON: None. FINDINGS: No fracture. No suspicious bone lesion. Normal alignment. Large knee joint effusion. Soft tissues are unremarkable. Right knee arthroplasty. RAD/Knee 3 Views IMPRESSION: Intact right knee arthroplasty. Large knee joint effusion. Reading Location: [id number]
[2024-11-09] MEDS: 0.9% Normal Saline (1000mL) 1,000 ML 999 ML IV ×2 (19:06→21:57)
[2024-11-09 19:18] LABS: Absolute Neutrophil Count 5.4 X10^3/uL (2.0-7.7); Basophil# 0.02 X10^3/uL; Basophil% 0.3 % (0-1); Eosinophil# 0.11 X10^3/uL; Eosinophils% 1.8 % (0-5); Hematocrit 34.8 % (37-47); Hemoglobin 11.2 g/dL (12.0-15.0); Mean Corp Hgb Conc 32.2 g/dL (32-36); Mean Corpuscular Hgb 29.5 pg (27.0-32.0); Mean Corpuscular Volume 91.6 fL (81-99); Mean Platelet Vol. 9.4 fl (6.2-12.0); Monocyte# 0.13 X10^3/uL; Monocyte% 2.1 % (0-10); NRBC Flagged by Analyzer 0 % (0-5); Neutrophil # 5.43 X10^3/uL (2.7-7.7); Neutrophil % 89.6 % (47-70); Platelet Count 132 K/mm3 (150-450); RBC Distribution Width CV 13.3 % (11.6-14.6); RBC Distribution Width SD 45.1 fl (35.1-43.9); White Blood Count 6.1 K/mm3 (4.4-11.0)
--- NOTE | 2024-11-09 19:20 | RAD_ITS ---
PROCEDURE: CHEST 1 VIEW (PORTABLE) REASON FOR EXAM: Sepsis. TECHNIQUE: Frontal view of the chest. COMPARISON: None. FINDINGS: The cardiac and mediastinal contours are normal. The lungs are clear. RAD/Chest 1 View (Portable) IMPRESSION: NEGATIVE SINGLE VIEW OF THE CHEST. Reading Location: [id number]
[2024-11-09 19:22] LABS: International Normalized Ratio 1.3; Prothrombin Time (Protime)PT. 16.8 SECONDS (11.7-14.9)
[2024-11-09 19:24] LABS: Partial Thromboplast Time 29.6 Seconds (24.1-36.2)
[2024-11-09 19:28] LABS: ALB/GLOB Ratio 0.6 RATIO (0.9-2.4); AST(SGOT) 233 U/L (15-37); Alanine Aminotransfer ALT/SGPT 211 U/L (13-56); Albumin, Serum 2.4 g/dL (3.2-5.0); Alkaline Phosphatase 512 U/L (45-117); Anion Gap 10 (5-15); BUN 30 mg/dL (7-18); BUN/Creat Ratio 42.7 RATIO (10-20); Calcium,Total 8.7 mg/dL (8.5-10.1); Chloride 106 mmol/L (98-107); EST Glomerular Filtration Rate 87 mL/min (>60); Est Glom Filt Rate - Afr Amer 105 mL/min (>60); Estimated Creatinine Clearance 66.69 ml/min; Globulin 4.2 g/dL (2.2-4.2); Glucose 109 mg/dL (74-106); Potassium 3.3 mmol/L (3.5-5.1); Protein, Total 6.6 g/dL (6.4-8.2); Sodium Level 138 mmol/L (136-145)
[2024-11-09 19:51] LABS: Lactic Acid 2.3 mmol/L (0.4-1.9)
--- NOTE | 2024-11-09 20:01 | EKG12_ITS ---
Test Reason : REPEAT EKG Blood Pressure : */* mmHG Vent. Rate : 127 BPM Atrial Rate : 127 BPM P-R Int : 160 ms QRS Dur : 80 ms QT Int : 304 ms P-R-T Axes : 42 26 47 degrees QTcB Int : 441 ms Sinus tachycardia Otherwise normal ECG Confirmed by FREDERICK WAGNER, MALIKA ([id number]), international editorial producer MELINDA STAHL ([id number]) on 11/12/2024 7:22:57 AM Referred By: Confirmed By: MALIKA MACK MD
[2024-11-09 20:17] LABS: Bacteria 0 SEEN /hpf (None Seen); Mucous, Urine 0 SEEN /hpf (<or=2+); Red Blood Cells-Urine 0 SEEN /hpf (0-5)
[2024-11-09 20:24] LABS: Color, Urine Yellow (Yellow); Glucose, Dipstick Normal (Normal); Ketone-Dipstick 5 mg/dl (Negative); Leukocyte Esterase-Dipstick 25 /ul (Negative); Nitrite-Dipstick Negative (Negative); Occult Blood-Urine 10 /ul (Negative); Protein-Dipstick 30 mg/dl (Negative); Specific Gravity, Urine 1.015 (1.002-1.030); Urine Clarity Clear (Clear); Urine Urobilinogen 1 mg/dl (Normal)
[2024-11-09] MEDS: Piperacil/Tazobactam 4.5 GM in 0.9% Normal Saline (100mL MB+) 100 ML IV (20:27)
[2024-11-09 20:32] LABS: Urine Bilirubin Dipstick 1 mg/dL (Negative)
--- NOTE | 2024-11-09 20:33 | ED.RN ---
This RN called pharmacy at 1920 regarding meds, pharmacy stated they sent them. This RN checked the tube system and medication bin and called pharmacy back regarding antibiotics. Pharmacist stated they would resend. See MAR for admin time.
[2024-11-09 20:34] LABS: Squamous Epithelial Cells - UA 0-5 SEEN /hpf (5-10); White Blood Cells 0-5 SEEN /hpf (0-5)
[2024-11-09] MEDS: Vancomycin HCl 2,000 MG in 0.9% Normal Saline (500mL Bag) 500 ML 250 MG IV (20:58)
--- NOTE | 2024-11-09 21:31 | PCM.HP.STD ---
HPI - General General Date of Admission: 11/09/24 Date of Service: 11/09/24 Chief Complaint: New onset chills, dehisced incision status post OR with drainage. HPI Narrative The patient is a 74-year-old female with past medical history GERD, hypertension, hyperlipidemia, chronic migraines, former tobacco use, PAF, anxiety and depression, obesity who presents to the [facility] ED on 11/09/2024 with history of infected right prosthetic knee status post recent 10/13/2024 irrigation and debridement with complete synovectomy and possibly an exchange in the right knee due to the acute infection per Dr. Velásquez with noted aspiration with group G strep discharged at that time with a PICC line with 6 weeks of planned IV Rocephin with stop date 11/24/2024 with plan follow-up with ID in 2 to 3 weeks with outpatient wound healing clinic evaluation per plastic surgery on 11/08/[address] Chisholm for right knee wound following the infected arthroplasty secondary to drainage and wound healing issues at the distal portion of the incision with no fevers or chills but worsened appearance as well as onset of chills just over the last day prompting eventual evaluation in the ED per plastic surgery recommendation on 11/09/2024. She notes the pain is more of a throbbing ache to the right knee is not worse than it was previously. Workup in the ED included T99.8, heart rate 154, BP 119/54, respiratory rate 20, 97% on room air with most recent repeat evaluation T98.4, heart 127, BP 108/59, respiratory rate 12, 96% room air, CBC with WBC 6.1, hemoglobin 11.2, MCV 91.6, platelet 132 with increased immature granulocytes with lymphopenia, coags unremarkable aside PT 16.8, CMP with potassium 3.3, BUN/: 30/0.70, GFR 87, glucose 109, lactic acid 2.3, T. bili 1.20, AST/LT 233/211, alk phos 512, urinalysis with no obvious evidence of UTI, chest x-ray with no acute cardiopulmonary findings, plain film of the right knee with arthroplasty with large knee joint effusion, EKG with sinus tachycardia with no acute evidence of ischemia. In the ED patient administered 2 L normal saline (30 cc/kg would be 3L but notable amount for her age, decreased per ED to be cautious), Tylenol 650 mg p.o. x 1, IV Zosyn and vancomycin. ED discussed case with Ortho/Siska. [facility] Medical History Loss of hearing History of steroid therapy Uses wheelchair Walker as ambulation aid Bladder disease Heartburn History of edema History of stress test History of echocardiogram Cardiology follow-up encounter Essential hypertension Other acute postprocedural pain Wears glasses Arthritis Migraine headache Former smoker History of pain when walking Anticoagulant long-term use Paroxysmal atrial fibrillation Anxiety Obesity Paroxysmal supraventricular tachycardia Dizziness Palpitations Uterovaginal prolapse, incomplete Home Medications ?Medication ?Instructions ?Recorded ?Last Taken ?Type acetaminophen 500 mg tablet 1,000 mg PO Q8 PRN pain 07/23/22 10/13/24 01:00 History ascorbic acid (vitamin C) 500 mg 500 mg PO QAM osteoporosis 05/31/24 Unknown History tablet (Vitamin C) cholecalciferol (vitamin D3) 25 25 mcg PO QDAY SUPPLEMENT 05/31/24 10/12/24 History mcg (1,000 unit) tablet apixaban 5 mg tablet (Eliquis) 5 mg PO BID BLOOD THINNER #180 tabs 08/26/24 10/12/24 Rx buspirone 5 mg tablet 5 mg PO .q1-2days ANXIETY 10/03/24 11/09/24 History magnesium oxide 400 mg (241.3 mg 400 mg PO QHS SUPPLEMENT 10/03/24 Unknown History magnesium) tablet ceftriaxone 2 gram intravenous 2 g IV Q24H 40 days 10/14/24 Unknown Rx solution diltiazem HCl 180 mg 180 mg PO QPM 11/09/24 Unknown History capsule,extended release 24 hr, controlled (DILT-XR) hydroxyzine HCl 25 mg tablet 25 mg PO QHS PRN PRN anxiety 11/09/24 Unknown History quetiapine 25 mg tablet 25 mg PO DAILY 11/09/24 Unknown History Allergy/AdvReac Type Severity Reaction Status Date / Time metoprolol AdvReac Mild Nausea Verified 11/09/24 17:55 flecainide AdvReac nausea Verified 11/09/24 17:55 Family History Mother CAD (coronary artery disease) Myocardial infarction, Onset Age: 80 Father Asthma COPD (chronic obstructive pulmonary disease) Brother Colon cancer COPD (chronic obstructive pulmonary disease) Former smoker Grandmother Breast cancer Grandfather Colon cancer Surgical History History of knee replacement (02/18/24) History of total hip arthroplasty (05/08/21) Hx of total hip arthroplasty History of esophagogastroduodenoscopy (EGD) Hx of colonoscopy History of bladder suspension procedure (2018) H/O total hysterectomy (2018) Social History (Updated 11/10/24 @ 00:[address] Shadia Nance MD) household members: spouse Smoking Status: Former smoker how long ago did patient quit smokin years ago alcohol intake: never substance use type: does not use caffeine: Yes Type: coffee Number of servings: 2 ROS ROS Narrative Admission Review of Systems: CONSTITUTIONAL: No weight loss, fever, + chills, weakness or fatigue. HEENT: Eyes: No visual loss, blurred vision, double vision or yellow sclerae. Ears, Nose, Throat: No hearing loss, sneezing, congestion, runny nose or sore throat. SKIN: No rash or itching, lesions except + right knee mildly dehisced incision status post previous OR recently with VAC in place with serosanguineous drainage with increased warmth. CARDIOVASCULAR: No chest pain, chest pressure or chest discomfort, palpitations, edema, orthopnea, syncopal events. RESPIRATORY: No shortness of breath, cough or sputum, wheezing, hemoptysis. GASTROINTESTINAL: + Decreased appetite. No nausea, vomiting or diarrhea, abdominal pain, melena, BRBPR. GENITOURINARY: No dysuria, frequency, urgency or retention. NEUROLOGICAL: No headache, dizziness, syncope, paralysis, ataxia, numbness or tingling in the extremities, focal weakness, change in bowel or bladder control, seizure. MUSCULOSKELETAL: + muscle, back pain, joint pain or stiffness. HEMATOLOGIC: + Chronic anemia, easy bleeding/bruising. LYMPHATICS: No enlarged nodes. No history of splenectomy. PSYCHIATRIC: + History of anxiety and depression. ENDOCRINOLOGIC: No reports of sweating, cold or heat intolerance. No polyuria or polydipsia. ALLERGIES: No history of asthma, hives, eczema or rhinitis. Vital Signs Vital Signs Vital Signs: 11/09/24 17:55 11/09/24 19:14 11/09/24 20:35 Temperature 99.8 F H 98.4 F Temperature Source Oral Oral Pulse Rate 154 H 127 H Respiratory Rate 20 H 12 Blood Pressure 119/54 L 108/59 L Blood Pressure Mean 75 75 Pulse Ox 97 96 Oxygen Delivery Method Room Air Room Air Room Air Weight Weight: 193 lb Body Mass Index (BMI) 34.2 Physical Exam Narrative Physical Examination: General: Awake, alert, oriented x 3 and cooperative, seated upright in the ED bed, fatigued, mildly ill-appearing Skin: Normal color, normal turgor, no icterus, no cyanosis except for very staged ecchymoses, abrasions, right knee with incisional wound VAC in place with serosanguineous drainage, increased warmth to palpation of the knee. HEENT: AT/NC, EOMI, PERRLA, moderately dry MM, no carotid bruits or JVD noted. Lungs: Mildly diminished, greater bases, proper effort, no rales, ronchi or wheezing. Heart: Irregular irregular; no gallop, rub audible. Abdomen: Soft, obese, NTTP, ND, distant normal BS, no appreciated HSM. Extremities: No cyanosis, no clubbing, pedal to knee swelling with VAC in place to the distal portion of the recent incisional opening/dehisced region with serosanguineous drainage, increased warmth to the knee to palpation. Neurological: Patient awake, alert, oriented as noted, cognitive function intact; pupils equally reactive to light and accommodation, cranial nerves grossly normal, moving all 4 extremities although limited right lower extremity movement given discomfort as expected, no focal deficits, strength moderately to severely globally decreased. Psychiatric: Affect appears flat, fatigued, ill-appearing, no acute evidence of depressive or anxiety feelings but does have underlying history. Results Lab / Micro Data 11/09/24 18:54 11/09/24 18:54 Labs: Laboratory Results - last 24 hr 11/09/24 18:54: WBC 6.1, RBC 3.80 L, Hgb 11.2 L, Hct 34.8 L, MCV 91.6, MCH 29.5, MCHC 32.2, RDW Std Deviation 45.1 H, RDW Coeff of Marielos 13.3, Plt Count 132 L, MPV 9.4, Immature Gran % (Auto) 1.200 H, Neut % (Auto) 89.6 H, Lymph % (Auto) 5.0 L, [place] % (Auto) 2.1, Eos % (Auto) 1.8, Baso % (Auto) 0.3, Absolute Neuts (auto) 5.4, Absolute Lymphs (auto) 0.30 L, Nucleated RBC % 0, PT 16.8 H, INR 1.3, APTT 29.6, Sodium 138, Potassium 3.3 L, Chloride 106, Carbon Dioxide 22.0, Anion Gap 10, BUN 30 H, Creatinine 0.70, Estim Creat Clear Calc 66.69, Est GFR (MDRD) Af Amer 105, Est GFR (MDRD) Non-Af 87, BUN/Creatinine Ratio 42.7 H, Glucose 109 H, Lactic Acid 2.3 H*, Calcium 8.7, Total Bilirubin 1.20 H, AST 233 H, ALT 211 H, Alkaline Phosphatase 512 H, Total Protein 6.6, Albumin 2.4 L, Globulin 4.2, Albumin/Globulin Ratio 0.6 L 11/09/24 20:14: Urine Color Yellow, Urine Clarity Clear, Urine pH 5.0, Ur Specific [place] 1.015, Urine Protein 30 H, Urine Glucose (UA) Normal, Urine Ketones 5 H, Urine Occult Blood 10 H, Urine Nitrite Negative, Urine Bilirubin 1 H, Urine Urobilinogen 1 H, Ur Leukocyte Esterase 25 H, Urine RBC 0 SEEN, Urine WBC 0-5 SEEN, Ur Squamous Epith Cells 0-5 SEEN, Urine Bacteria 0 SEEN, Urine Mucus 0 SEEN Micro: Microbiology 11/09/24 19:20 Mucosa - Nose SARS-CoV-2, Influenza & RSV (PCR) - Final Imaging Radiology Impression Knee X-Ray 11/09/24 18:50 IMPRESSION: Intact right knee arthroplasty. Large knee joint effusion. Reading Location: [facility] Chest X-Ray 11/09/24 19:20 IMPRESSION: NEGATIVE SINGLE VIEW OF THE CHEST. Reading Location: [facility] Assessment & Plan Assessment/Plan (1) Septic joint: PLAN: Plan The patient is a 74-year-old female with past medical history GERD, hypertension, hyperlipidemia, chronic migraines, former tobacco use, PAF, anxiety and depression, obesity who presents to the [facility] ED on 11/09/2024 with history of infected right prosthetic knee status post recent 10/13/2024 irrigation and debridement with complete synovectomy and possibly an exchange in the right knee due to the acute infection per Dr. Velásquez with noted aspiration with group G strep discharged at that time with a PICC line with 6 weeks of planned IV Rocephin with stop date 11/24/2024 with plan follow-up with ID in 2 to 3 weeks with outpatient wound healing clinic evaluation per plastic surgery on 11/08/[address] Chisholm for right knee wound following the infected arthroplasty secondary to drainage and wound healing issues at the distal portion of the incision with no fevers or chills but worsened appearance as well as onset of chills just over the last day prompting eventual evaluation in the ED per plastic surgery recommendation on 11/09/2024. #1. Acute Sepsis (Source, Tachycardia, Elevated LFTs, mild Hyperbilirubinemia, mild lactic acidosis otherwise no specific noted end-organ damage) secondary to Acute Septic Joint: Given concern for sepsis with infected joint with recent operative intervention will admit to the ICU per protocol, will continue consultation with aviation medicine specialist as well as plastic surgery and orthopedic surgery who have both been made aware, in case of operative intervention needs given concern for septic joint will hold patient oral Eliquis with last dose given to 5 AM and transition to heparin drip in the interim pending right lower extremity duplex ultrasound to be cautious per discussion with plastic surgery, maintain on broad-spectrum antibiotic therapy with IV vancomycin and IV cefepime, will request cultures from wound as well as MRSA wound, will request ID involvement, will give additional 1 L IV fluid and continue maintenance IV fluids, continue to trend CBC and CMP, will have n.p.o. status after midnight in case of operative intervention needs. #2. Mild hyperbilirubinemia, transaminitis: Suspected secondary to #1, admission CMP with total bili 1.20, AST/ALT 233/211, alk phos 512, will continue to treat as noted and repeat CMP in AM. #3. Hypokalemia: Admission K+ 3.3, magnesium level requested, supplementation given, repeat level in AM. #4. Thrombocytopenia, appears new, suspected reactive given number 1: Admission platelets 132, previous to this earlier in the day had been 161 and normal range except for very focal specific decrease is potentially reactive, will continue to trend CBC. #5. Acute renal insufficiency with no previous chart reported chronic kidney disease and GFR had previously been in appropriate range suspected likely secondary to #1: Admission BUN/Cr 30/0.70, GFR 87, baseline renal function primarily 0.40.7 with a GFR in the 100 range now presenting with a GFR in the 80s, repeat BMP in AM. #6. Chronic normocytic anemia: Admission hemoglobin 11.2, MCV 91.6, baseline 10-11 more recently however previous to this had been 13 range. #7. Anxiety and depression: We will cautiously continue patient home Seroquel, hydroxyzine and BuSpar regimen with hold parameters for sedation. #8. Hypertension: Continue home regimen including diltiazem with hold parameters as needed especially given presentation #1, PRN hydralazine. #9. Hyperlipidemia: Per current list not on regimen, defer to outpatient. #10. PAF: We will cautiously continue diltiazem with hold parameters as needed given #1, holding Eliquis with last dose 11/09/2024 early a.m. with transition to heparin drip pending duplex ultrasound as discussed with plastic surgery. #11. Former tobacco use: Encourage continued tobacco cessation. #12. Obesity: Weight loss and lifestyle changes encouraged. #13. DVT prophylaxis: As noted holding Eliquis with last dose 11/09/2024 early a.m. and transition to heparin drip pending duplex ultrasound of the right lower extremity per discussion with plastic surgery to be cautious. #14. CODE status: Patient MURALI is her daughter and living will is currently in place. Discussed CODE status at length including difference between FULL code, DNR-CCA and DNR-CC status. Following discussions about the differences in these status, requested Full Code status. Advanced Care Planning Face to Face Time: 16 minutes. Charges/Coding Visit Charges Inpatient E&M: 67428 Init Hosp L3 Procedures Hospitalists Procedures: 30490 Advncd Care Plan 30 Min
--- NOTE | 2024-11-09 22:09 | VDLE_ITS ---
Reason For Study: RLE Pain RIGHT LEFT GSV is normal. CFV is compressible, spontaneous, phasic, CFV is compressible, spontaneous, phasic, competent, and demonstrates normal competent and demonstrates normal augmentation. augmentation. FV is compressible, spontaneous, phasic, competent and demonstrates normal augmentation. POP V is compressible, spontaneous, phasic, competent and demonstrates normal augmentation. T/P Trunk is compressible. PTV is compressible. RT PerV is compressible. Procedure This is a venous duplex using B-mode, color flow and spectral Doppler. Exam performed portable in ICU/CCU. The exam was diagnostic. A preliminary report was called and/or faxed to ICU cap inspectorTEENA Bo. VL/Venous Duplex US, Unilateral Interpretation Summary Deep veins of the right lower extremity are patent and compressible segmentally . There is no evidence of right lower extremity deep vein thrombosis. The right great sapheno us vein appears patent and compressible segmentally. Ordering Physician: Shadia Nance Referring Physician: Damian Craig Performed By: Tomer Vasquez RVT
[2024-11-09 22:46] LABS: Magnesium 1.9 mg/dL (1.6-2.6)
[2024-11-09 23:01] LABS: Reflex Lactate? Y
[2024-11-09] MEDS: Acetaminophen 325 MG Tablet 650 MG PO (23:41)
[2024-11-09] MEDS: HEPARIN/D5w 25,000 UNITS 25,000 UNITS/250 ML IV.SOLN. 12 UNITS CONT INF (23:42)
[2024-11-09] MEDS: 0.9% Normal Saline (1000mL) 1,000 ML 100 ML IV (23:42)
[2024-11-09] MEDS: Potassium Chloride Oral Tablet 20 MEQ 40 MEQ PO (23:42)
[2024-11-09 23:45] LABS: Lactic Acid 0.7 mmol/L (0.4-1.9)
--- NOTE | 2024-11-09 23:47 | PCM.RX.CS ---
Consult Antibiotic Management Pharmacy has been consulted to manage selected antibiotic: Vancomycin Type of Intervention Type of Consult: New start Labs Labs: Sodium 138 mmol/L (136-145) 11/09/24 18:54 Potassium 3.3 mmol/L (3.5-5.1) L 11/09/24 18:54 Chloride 106 mmol/L (98-107) 11/09/24 18:54 Carbon Dioxide 22.0 mmol/L (21.0-32.0) 11/09/24 18:54 Anion Gap 10 (5-15) 11/09/24 18:54 BUN 30 mg/dL (7-18) H 11/09/24 18:54 Creatinine 0.70 mg/dL (0.55-1.02) 11/09/24 18:54 Est GFR (MDRD) Af Amer 105 mL/min (>60) 11/09/24 18:54 Est GFR (MDRD) Non-Af 87 mL/min (>60) 11/09/24 18:54 BUN/Creatinine Ratio 42.7 RATIO (10-20) H 11/09/24 18:54 Glucose 109 mg/dL (74-106) H 11/09/24 18:54 Microbiology Microbiology: Microbiology 11/09/24 19:20 Mucosa - Nose SARS-CoV-2, Influenza & RSV (PCR) - Final Dosing Weight Weight used for dosin.4 kg Estimated Creatinine Clearance Estimated Creatinine Clearance: 66.69 Goal Trough Goal Trough: 15-20 mcg/mL Pharmacy Plan for Drug Dosing Pharmacy Plan for Drug Dosing: Pharmacy Service will continue to monitor and adjust dosing as required. 2GM DOSE GIVEN IN ER, START 1GM Q12H AND DRAW TROUGH PRIOR TO 4TH DOSE Follow-Up Labs Follow-Up Labs: Trough: Vancomycin Date/Time Labs Ordered Labs to be done on [date and time ordered]: 11/11 @ 9805
[2024-11-09 23:53] LABS: International Normalized Ratio 1.4; Partial Thromboplast Time 29.9 Seconds (24.1-36.2)
[2024-11-10] VITALS (18 sets, daily range): BP systolic 89–120; BP diastolic 47–77; PULSE 94–128; RESP 14–24; TEMP 36.4–37; O2SAT 78–100; BMI 35.3
[2024-11-10] MEDS: 0.9% Normal Saline (500mL Bag) 500 ML 999 ML IV ×2 (01:41→02:47)
[2024-11-10] MEDS: 0.9% Saline Lock 10 ML Syringe IV ×3 (01:42→22:15)
--- NOTE | 2024-11-10 01:43 | PCMCONS.TICU ---
HPI Consult Data Date of Consult: 11/10/24 HPI Narrative Reason for Consultation: Sepsis, Rt Knee infection HPI Narrative: KRISTA TALAVERA, is a 74 F with GERD, hypertension, hyperlipidemia, chronic migraines, former tobacco use, PAF, anxiety and depression, obesity who presents to the [facility] ED on 11/09/2024 with history of infected right prosthetic knee. Patient had Rt knee replacement about a yr ago and needed I & D about a month ago for septic arthritis. Patient was placed on 6weeks of antibiotics, until 11/24/2024. Patient has been following up with out patient wound care clinic and was placed on wound vac. Patient developed fever, chills on 11/09 therefore presented to the ER for further evaluation. Patient also vomited once in ER. Currently patient denies any chest pain, nausea, abd pain, diaphoresis, dizziness. [facility] Medical History Loss of hearing History of steroid therapy Uses wheelchair Walker as ambulation aid Bladder disease Heartburn History of edema History of stress test History of echocardiogram Cardiology follow-up encounter Essential hypertension Other acute postprocedural pain Wears glasses Arthritis Migraine headache Former smoker History of pain when walking Anticoagulant long-term use Paroxysmal atrial fibrillation Anxiety Obesity Paroxysmal supraventricular tachycardia Dizziness Palpitations Uterovaginal prolapse, incomplete Home Medications ?Medication ?Instructions ?Recorded ?Last Taken ?Type acetaminophen 500 mg tablet 1,000 mg PO Q8 PRN pain 07/23/22 10/13/24 01:00 History ascorbic acid (vitamin C) 500 mg 500 mg PO QAM osteoporosis 05/31/24 Unknown History tablet (Vitamin C) cholecalciferol (vitamin D3) 25 25 mcg PO QDAY SUPPLEMENT 05/31/24 10/12/24 History mcg (1,000 unit) tablet apixaban 5 mg tablet (Eliquis) 5 mg PO BID BLOOD THINNER #180 tabs 08/26/24 10/12/24 Rx buspirone 5 mg tablet 5 mg PO .q1-2days ANXIETY 10/03/24 11/09/24 History magnesium oxide 400 mg (241.3 mg 400 mg PO QHS SUPPLEMENT 10/03/24 Unknown History magnesium) tablet ceftriaxone 2 gram intravenous 2 g IV Q24H 40 days 10/14/24 Unknown Rx solution diltiazem HCl 180 mg 180 mg PO QPM 11/09/24 Unknown History capsule,extended release 24 hr, controlled (DILT-XR) hydroxyzine HCl 25 mg tablet 25 mg PO QHS PRN PRN anxiety 11/09/24 Unknown History quetiapine 25 mg tablet 25 mg PO DAILY 11/09/24 Unknown History Allergy/AdvReac Type Severity Reaction Status Date / Time metoprolol AdvReac Mild Nausea Verified 11/09/24 17:55 flecainide AdvReac nausea Verified 11/09/24 17:55 Family History Mother CAD (coronary artery disease) Myocardial infarction, Onset Age: 80 Father Asthma COPD (chronic obstructive pulmonary disease) Brother Colon cancer COPD (chronic obstructive pulmonary disease) Former smoker Grandmother Breast cancer Grandfather Colon cancer Surgical History History of knee replacement (02/18/24) History of total hip arthroplasty (05/08/21) Hx of total hip arthroplasty History of esophagogastroduodenoscopy (EGD) Hx of colonoscopy History of bladder suspension procedure (2017) H/O total hysterectomy (2018) Social History (Updated 11/10/24 @ 00:[address] Shadia Nance MD) household members: spouse Smoking Status: Former smoker how long ago did patient quit smokin years ago alcohol intake: never substance use type: does not use caffeine: Yes Type: coffee Number of servings: 2 ROS ROS Narrative As pre HPI Objective Data Objective Data Vital Signs: Vital Signs Last response Temperature 36.7 C 11/10/24 01:15 Temperature Source Temporal 11/10/24 01:15 Pulse Rate 103 H 11/10/24 01:15 Respiratory Rate 20 H 11/10/24 01:15 Respiratory Effort Normal, Non-Labored 11/10/24 00:15 Respiratory Depth Normal 11/10/24 00:15 Respiratory Pattern Normal 11/10/24 00:15 Blood Pressure 89/50 L 11/10/24 01:15 Blood Pressure Mean 63 11/10/24 01:15 Blood Pressure Source Monitor 11/10/24 00:45 Blood Pressure Position Semi-Fowlers 11/10/24 00:45 Blood Pressure Location Left Arm 02/06/25 00:45 Pulse Ox 91 11/10/24 01:15 Oxygen Delivery Method Room Air 11/10/24 01:15 I&O: I&O Last 24 Hours 11/09/24 11/09/24 11/10/24 11:59 23:59 11:59 Intake Total 3140 / 3140 Balance 3140 / 3140 I&O: Total Stay 11/09/24 17:54 thru 11/09/24 23:59 Intake Total 3140 Balance 3140 Current Meds Ordered / Administered: Current meds ordered / Administered Generic Name Dose Route Start Last Admin Trade Name Freq PRN Reason Stop Dose Admin Acetaminophen 650 mg 11/09/24 23:22 11/09/24 23:41 Acetaminophen 325 Mg Tablet PO 650 mg Q4H PRN PRN Administration Fever, pain 1-07/14 Al Hydroxide/Mg Hydroxide 30 ml 11/09/24 23:22 Mag Hydrox/Al Hydrox/Simeth 30 Ml Udc PO Q6H PRN PRN Gastric Burning Albuterol Sulfate 2.5 mg 11/09/24 23:22 Albuterol 2.5 Mg/3 Ml Vial.Neb. INHALATION Q2H PRN PRN Dyspnea, wheezing Ascorbic Acid 500 mg 11/10/24 10:00 Ascorbic Acid 500 Mg Tablet PO DAILY [facility] Buspirone HCl 5 mg 11/09/24 23:22 Buspirone 5 Mg Tablet PO .q1-2days MAXIMUS Clarify Med Order 1 each 11/10/24 01:45 Clarify Order NOTE CLARIFY MAXIMUS Diltiazem HCl 180 mg 11/10/24 22:00 Diltiazem Cd 180 Mg Capsule PO QHS [facility] Heparin Sodium (Porcine) 0 unit 11/09/24 23:30 Heparin Injection (Vial) 5,000 Unit/Ml Vial IV UD PRN dose adjustment Protocol Hydralazine HCl 10 mg 11/09/24 23:22 Hydralazine 20 Mg/Ml Vial IV Q4H PRN PRN SBP > 160 Protocol Hydroxyzine Pamoate 25 mg 11/09/24 23:22 Hydroxyzine Leana 25 Mg Capsule PO QHS PRN PRN anxiety Vancomycin IV-PHARMACY TO DOSE 500 mls @ 250 mls/hr 11/09/24 23:22 1 each/ Sodium Chloride IV X1 PRN Rx to Dose Protocol Cefepime HCl 2 gm/ Sodium 100 mls @ 200 mls/hr 11/10/24 06:00 Chloride IV Q8 MAXIMUS Sodium Chloride 1,000 mls @ 100 mls/hr 11/09/24 23:22 11/09/24 23:42 IV 11/10/24 09:21 100 mls/hr .Q10H MAXIMUS Administration Protocol Heparin Sodium/Dextrose 25,000 units in 250 mls @ 12 mls/hr 11/09/24 23:22 11/09/24 23:42 CONT INF 1,200 units/hr .[id number] MAXIMUS 12 mls/hr Administration Protocol As Directed Sodium Chloride 100 mls @ 15 mls/hr 11/09/24 23:32 IV .Q6H40M PRN Saline Flush Sodium Chloride 100 mls @ 15 mls/hr 11/09/24 23:32 IV .Q6H40M PRN Additional IVPB Infusion Vancomycin HCl 1,000 mg in 200 mls @ 200 mls/hr 11/10/24 09:00 Vancomycin IV Q12H [facility] Sodium Chloride 500 mls @ 999 mls/hr 11/10/24 01:26 11/10/24 01:41 IV 11/10/24 01:56 999 mls/hr .Q31M ONE Administration Protocol Melatonin 3 mg 11/09/24 23:22 Melatonin 3 Mg Tablet PO QHS PRN PRN INSOMNIA Ondansetron HCl 4 mg 11/09/24 23:22 Ondansetron 4 Mg/2 Ml Vial IV Q8H PRN PRN NAUSEA/VOMITING Prochlorperazine Edisylate 5 mg 11/09/24 23:22 Prochlorperazine 10 Mg/2 Ml Vial IV Q4H PRN PRN Breakthrough Nausea/Vomiting Quetiapine Fumarate 25 mg 11/10/24 10:00 Quetiapine 25 Mg Tablet PO DAILY [facility] Protocol Senna/Docusate Sodium 2 tablet 11/09/24 23:22 Senna/Docusate Sodium 1 Tablet PO BID PRN PRN Constipation Sodium Chloride 10 - 40 ml 11/09/24 23:32 11/10/24 01:42 0.9% Saline Lock 10 Ml Syringe IV 10 ml UD PRN Administration SALINE FLUSH Throat Lozenges 1 lozenge 11/09/24 23:22 Benzocaine/Menthol 1 Lozenge MUCOUS MEM Q2H PRN PRN SORE THROAT Vancomycin Protocol 1 lab 11/11/24 06:30 Vancomycin Trough/Random Due 11/11/24 10:30 DAILY MAXIMUS Physical Exam Const alert, oriented x3 and no apparent distress General Appearance: cooperative and well developed HEENT normocephalic Mouth: oral and palatal mucosa normal Eyes PERRL, EOMs intact bilaterally and conjunctivae normal Resp normal respiratory effort and no use of accessory muscles Effort and Inspection: able to speak in complete sentences Auscultation: clear to auscultation bilaterally Cardio regular rate, regular rhythm, S1 normal heart sound, S2 normal heart sound and no murmurs GI normal to inspection, nondistended, normoactive bowel sounds Extremity no clubbing, cyanosis or edema Neuro oriented x3 and moves all extremities Lab / Micro Data 11/09/24 18:54 11/09/24 18:54 Labs: Laboratory Results - last 24 hr 11/09/24 18:54: WBC 6.1, RBC 3.80 L, Hgb 11.2 L, Hct 34.8 L, MCV 91.6, MCH 29.5, MCHC 32.2, RDW Std Deviation 45.1 H, RDW Coeff of Marielos 13.3, Plt Count 132 L, MPV 9.4, Immature Gran % (Auto) 1.200 H, Neut % (Auto) 89.6 H, Lymph % (Auto) 5.0 L, [place] % (Auto) 2.1, Eos % (Auto) 1.8, Baso % (Auto) 0.3, Absolute Neuts (auto) 5.4, Absolute Lymphs (auto) 0.30 L, Nucleated RBC % 0, PT 16.8 H, INR 1.3, APTT 29.6, Sodium 138, Potassium 3.3 L, Chloride 106, Carbon Dioxide 22.0, Anion Gap 10, BUN 30 H, Creatinine 0.70, Estim Creat Clear Calc 66.69, Est GFR (MDRD) Af Amer 105, Est GFR (MDRD) Non-Af 87, BUN/Creatinine Ratio 42.7 H, Glucose 109 H, Lactic Acid 2.3 H*, Calcium 8.7, Magnesium 1.9, Total Bilirubin 1.20 H, AST 233 H, ALT 211 H, Alkaline Phosphatase 512 H, Total Protein 6.6, Albumin 2.4 L, Globulin 4.2, Albumin/Globulin Ratio 0.6 L 11/09/24 20:14: Urine Color Yellow, Urine Clarity Clear, Urine pH 5.0, Ur Specific [place] 1.015, Urine Protein 30 H, Urine Glucose (UA) Normal, Urine Ketones 5 H, Urine Occult Blood 10 H, Urine Nitrite Negative, Urine Bilirubin 1 H, Urine Urobilinogen 1 H, Ur Leukocyte Esterase 25 H, Urine RBC 0 SEEN, Urine WBC 0-5 SEEN, Ur Squamous Epith Cells 0-5 SEEN, Urine Bacteria 0 SEEN, Urine Mucus 0 SEEN 11/09/24 23:13: Lactic Acid 0.7 11/09/24 23:35: PT 17.0 H, INR 1.4, APTT 29.9 Micro: Microbiology 11/09/24 19:20 Mucosa - Nose SARS-CoV-2, Influenza & RSV (PCR) - Final Imaging Radiology Impression Knee X-Ray 11/09/24 18:50 IMPRESSION: Intact right knee arthroplasty. Large knee joint effusion. Reading Location: [facility] Chest X-Ray 11/09/24 19:20 IMPRESSION: NEGATIVE SINGLE VIEW OF THE CHEST. Reading Location: [facility] Assessment and Plan . Assessment and plan: #Sepsis #Rt Knee Septic Arthritis #Afib on AC #HTN #HLD #Obesity Plan -Obtain Blood cultures -Obtain wound cultures -Sepsis bolus given -Start on Maintenance fluids -As needed fluid bolus -Levophed if MAP <65 -Midodrine if patient able to take oral and MAP<65 -Hold all HTN meds -Started on Vanco, Cefepime -Consulted Ortho, ID -Hold oral AC and switched to IV heparin -DVT px - IV heparin for now Critical Care Time: 63mins The entirety of this encounter was done via Telemedicine
[2024-11-10] MEDS: Cefepime HCl 2 GM in 0.9% Normal Saline (100mL MB+) 100 ML IV ×3 (05:43→21:36)
[2024-11-10 05:54] LABS: Absolute Lymphocyte Count 0.63 X10^3/uL (0.83-4.51); Absolute Neutrophil Count 4.6 X10^3/uL (2.0-7.7); Basophil# 0.01 X10^3/uL; Basophil% 0.2 % (0-1); Eosinophil# 0.06 X10^3/uL; Hematocrit 30.1 % (37-47); Hemoglobin 9.7 g/dL (12.0-15.0); Lymphocyte # 0.63 X10^3/ul (0.83-4.51); Lymphocyte % 10.8 % (19-41); Mean Corp Hgb Conc 32.2 g/dL (32-36); Mean Corpuscular Hgb 29.6 pg (27.0-32.0); Mean Corpuscular Volume 91.8 fL (81-99); Mean Platelet Vol. 9.7 fl (6.2-12.0); Monocyte# 0.54 X10^3/uL; Monocyte% 9.2 % (0-10); NRBC Flagged by Analyzer 0 % (0-5); Neutrophil # 4.59 X10^3/uL (2.7-7.7); Neutrophil % 78.5 % (47-70); Platelet Count 123 K/mm3 (150-450); RBC Distribution Width CV 13.5 % (11.6-14.6); RBC Distribution Width SD 45.6 fl (35.1-43.9); Red Blood Count 3.28 M/mm3 (4.2-5.4); White Blood Count 5.9 K/mm3 (4.4-11.0)
[2024-11-10 06:12] LABS: ALB/GLOB Ratio 0.5 RATIO (0.9-2.4); AST(SGOT) 156 U/L (15-37); Alanine Aminotransfer ALT/SGPT 162 U/L (13-56); Alkaline Phosphatase 426 U/L (45-117); Anion Gap 7 (5-15); BUN 19 mg/dL (7-18); Calcium,Total 7.9 mg/dL (8.5-10.1); Chloride 113 mmol/L (98-107); Creatinine, Serum 0.42 mg/dL (0.55-1.02); EST Glomerular Filtration Rate 157 mL/min (>60); Est Glom Filt Rate - Afr Amer 189 mL/min (>60); Estimated Creatinine Clearance 67.83 ml/min; Globulin 3.8 g/dL (2.2-4.2); Glucose 109 mg/dL (74-106); Potassium 3.8 mmol/L (3.5-5.1); Protein, Total 5.8 g/dL (6.4-8.2); Sodium Level 142 mmol/L (136-145)
[2024-11-10 06:47] LABS: Partial Thromboplast Time 95.3 Seconds (24.1-36.2)
--- NOTE | 2024-11-10 07:20 | EX.PCM.CON.S ---
Assessment & Plan Assessment/Plan (1) Infected prosthetic knee joint: PLAN: Plan I discussed with the patient extensively risk benefits and alternatives to continued VAC therapy. I discussed with orthopedic surgery team, Dr. Velásquez. He is planning joint aspiration. If there is positive infection after the aspiration, then he will take the patient to the operating room for an antibiotic spacer, at which time she will likely need a medial gastrocnemius for coverage. If there is no infection on aspiration, then we will continue to discussed with the patient options including continued wound VAC therapy versus debridement in the operating room with medial gastroc flap. At this point patient would like to defer surgery and continue wound VAC therapy as long as there is a chance that he could work, and without any exposed critical structures at the base of the wound, this is a reasonable option at this time. Plastic surgery will follow HPI Consult Data Date of Consult: 11/10/24 HPI Narrative HPI Narrative: Chief Complaint: Right knee wound after infected arthroplasty History of Wound: Joselin Diane is a delightful 74-year-old female with past medical history of a right total knee arthroplasty in February 2024 who presented back to her arthroplasty surgeon Dr. Velásquez with an acute pyogenic right total knee infection earlier this month in October 2024 and was taken back to the operating room on 13 October 2024 for irrigation/debridement with complete synovectomy and a polyethylene exchange of the right knee. Per operative report, the joint was closed with layered 1-0 Vicryl interrupted sutures and the subcuticular layer was closed with 2-0 interrupted Vicryl sutures followed by isabella for the final skin closure. The patient was placed on IV antibiotics by infectious disease, as her cultures grew Streptococcus group G (currently on ceftriaxone per infectious disease consultation, 6 weeks Rocephin). She followed up with Dr. Velásquez in clinic and had some drainage and wound healing issues from the distal portions of the incision and at some point nylon stitches were used to bridge the gap and keep the wound together (isabella are out on exam today). Today she denies any fevers chills or any significant drainage. Of note the patient has atrial fibrillation and is chronically anticoagulated on Eliquis and also takes diltiazem for rate control and blood pressure. She is not a smoker. No history of diabetes. No personal or family history of bleeding or clotting problems or problems with anesthesia. 08 November 2024: Patient tolerating antibiotic course and tolerating the wound VAC. No fevers or chills Current encounter in consultation, 10 November 2024: Patient admitted overnight for subjective fevers and chills, heart rate in the 150s (A-fib RVR), and increased pain over the infected knee prosthesis. Today on the floor, patient endorses increased pain but improved fevers and chills. She has improved vital signs (heart rate in low 100s) with a white blood cell count of 6. PFSH Medical History Loss of hearing History of steroid therapy Uses wheelchair Walker as ambulation aid Bladder disease Heartburn History of edema History of stress test History of echocardiogram Cardiology follow-up encounter Essential hypertension Other acute postprocedural pain Wears glasses Arthritis Migraine headache Former smoker History of pain when walking Anticoagulant long-term use Paroxysmal atrial fibrillation Anxiety Obesity Paroxysmal supraventricular tachycardia Dizziness Palpitations Uterovaginal prolapse, incomplete Home Medications ?Medication ?Instructions ?Recorded ?Last Taken ?Type acetaminophen 500 mg tablet 1,000 mg PO Q8 PRN pain 07/23/22 10/13/24 01:00 History ascorbic acid (vitamin C) 500 mg 500 mg PO QAM osteoporosis 05/31/24 Unknown History tablet (Vitamin C) cholecalciferol (vitamin D3) 25 25 mcg PO QDAY SUPPLEMENT 05/31/24 10/12/24 History mcg (1,000 unit) tablet apixaban 5 mg tablet (Eliquis) 5 mg PO BID BLOOD THINNER #180 tabs 08/26/24 10/12/24 Rx buspirone 5 mg tablet 5 mg PO .q1-2days ANXIETY 10/03/24 11/09/24 History magnesium oxide 400 mg (241.3 mg 400 mg PO QHS SUPPLEMENT 10/03/24 Unknown History magnesium) tablet ceftriaxone 2 gram intravenous 2 g IV Q24H 40 days 10/14/24 Unknown Rx solution diltiazem HCl 180 mg 180 mg PO QPM 11/09/24 Unknown History capsule,extended release 24 hr, controlled (DILT-XR) hydroxyzine HCl 25 mg tablet 25 mg PO QHS PRN PRN anxiety 11/09/24 Unknown History quetiapine 25 mg tablet 25 mg PO DAILY 11/09/24 Unknown History Allergy/AdvReac Type Severity Reaction Status Date / Time metoprolol AdvReac Mild Nausea Verified 11/09/24 17:55 flecainide AdvReac nausea Verified 11/09/24 17:55 Family History Mother CAD (coronary artery disease) Myocardial infarction, Onset Age: 80 Father Asthma COPD (chronic obstructive pulmonary disease) Brother Colon cancer COPD (chronic obstructive pulmonary disease) Former smoker Grandmother Breast cancer Grandfather Colon cancer Surgical History History of knee replacement (02/18/24) History of total hip arthroplasty (05/08/21) Hx of total hip arthroplasty History of esophagogastroduodenoscopy (EGD) Hx of colonoscopy History of bladder suspension procedure (2018) H/O total hysterectomy (2018) Social History (Updated 11/10/24 @ 00:[address] Shadia Nance MD) household members: spouse Smoking Status: Former smoker how long ago did patient quit smokin years ago alcohol intake: never substance use type: does not use caffeine: Yes Type: coffee Number of servings: 2 Physical Exam Narrative VAC removed. Right knee wound examined. THere is no exposed bone or prosthetic. No fluid draining or purulence. Lab / Micro Data 11/10/24 05:42 11/10/24 05:42 Labs: Laboratory Results - last 24 hr 11/09/24 18:54: WBC 6.1, RBC 3.80 L, Hgb 11.2 L, Hct 34.8 L, MCV 91.6, MCH 29.5, MCHC 32.2, RDW Std Deviation 45.1 H, RDW Coeff of Marielos 13.3, Plt Count 132 L, MPV 9.4, Immature Gran % (Auto) 1.200 H, Neut % (Auto) 89.6 H, Lymph % (Auto) 5.0 L, [place] % (Auto) 2.1, Eos % (Auto) 1.8, Baso % (Auto) 0.3, Absolute Neuts (auto) 5.4, Absolute Lymphs (auto) 0.30 L, Nucleated RBC % 0, PT 16.8 H, INR 1.3, APTT 29.6, Sodium 138, Potassium 3.3 L, Chloride 106, Carbon Dioxide 22.0, Anion Gap 10, BUN 30 H, Creatinine 0.70, Estim Creat Clear Calc 66.69, Est GFR (MDRD) Af Amer 105, Est GFR (MDRD) Non-Af 87, BUN/Creatinine Ratio 42.7 H, Glucose 109 H, Lactic Acid 2.3 H*, Calcium 8.7, Magnesium 1.9, Total Bilirubin 1.20 H, AST 233 H, ALT 211 H, Alkaline Phosphatase 512 H, Total Protein 6.6, Albumin 2.4 L, Globulin 4.2, Albumin/Globulin Ratio 0.6 L 11/09/24 20:14: Urine Color Yellow, Urine Clarity Clear, Urine pH 5.0, Ur Specific [place] 1.015, Urine Protein 30 H, Urine Glucose (UA) Normal, Urine Ketones 5 H, Urine Occult Blood 10 H, Urine Nitrite Negative, Urine Bilirubin 1 H, Urine Urobilinogen 1 H, Ur Leukocyte Esterase 25 H, Urine RBC 0 SEEN, Urine WBC 0-5 SEEN, Ur Squamous Epith Cells 0-5 SEEN, Urine Bacteria 0 SEEN, Urine Mucus 0 SEEN 11/09/24 23:13: Lactic Acid 0.7 11/09/24 23:35: PT 17.0 H, INR 1.4, APTT 29.9 11/10/24 05:42: WBC 5.9, RBC 3.28 L, Hgb 9.7 L, Hct 30.1 L, MCV 91.8, MCH 29.6, MCHC 32.2, RDW Std Deviation 45.6 H, RDW Coeff of Marielos 13.5, Plt Count 123 L, MPV 9.7, Immature Gran % (Auto) 0.300, Neut % (Auto) 78.5 H, Lymph % (Auto) 10.8 L, [place] % (Auto) 9.2, Eos % (Auto) 1.0, Baso % (Auto) 0.2, Absolute Neuts (auto) 4.6, Absolute Lymphs (auto) 0.63 L, Nucleated RBC % 0, APTT 95.3 H*, Sodium 142, Potassium 3.8, Chloride 113 H, Carbon Dioxide 22.0, Anion Gap 7, BUN 19 H, Creatinine 0.42 L, Estim Creat Clear Calc 67.83, Est GFR (MDRD) Af Amer 189, Est GFR (MDRD) Non-Af 157, BUN/Creatinine Ratio 45.0 H, Glucose 109 H, Calcium 7.9 L, Total Bilirubin 1.00, AST 156 H, ALT 162 H, Alkaline Phosphatase 426 H, Total Protein 5.8 L, Albumin 2.0 L, Globulin 3.8, Albumin/Globulin Ratio 0.5 L Micro: Microbiology 11/10/24 00:15 Wound - Knee Skin and Soft Tissue MRSA/MSSA (PCR - Final 11/09/24 19:20 Mucosa - Nose SARS-CoV-2, Influenza & RSV (PCR) - Final Imaging Radiology Impression Knee X-Ray 11/09/24 18:50 IMPRESSION: Intact right knee arthroplasty. Large knee joint effusion. Reading Location: [facility] Chest X-Ray 11/09/24 19:20 IMPRESSION: NEGATIVE SINGLE VIEW OF THE CHEST. Reading Location: [facility] X-rays reviewed Charges/Coding Multi Select Codes Visit Charges Office Visit/Consults: 48207 IP Consult L5 (Examined wound, discussed with multiple providers her care, and counseled the patient extensively)
[2024-11-10] MEDS: Acetaminophen 325 MG Tablet 650 MG PO (08:04)
[2024-11-10] MEDS: QUEtiapine 25 MG Tablet PO (08:04)
[2024-11-10] MEDS: Ascorbic Acid 500 MG Tablet PO (08:04)
--- NOTE | 2024-11-10 09:17 | PCM.PN.HOSP ---
Reason for Visit Reason for Visit: Diagnoses Pyogenic arthritis, unspecified (11/09/24) Subjective Subjective Patient is a 74-year-old female with past medical history significant for recent acute pyogenic right total knee infection for which patient underwent irrigation and debridement with complete synovectomy and polyethylene exchange of the right knee on 10/13/[address] Velásquez who presented to the emergency department with nausea vomiting as well as chills Objective Data Objective Data Vital Signs: Vital Signs Temp Pulse Resp BP Pulse Ox O2 Del Method 97.5 F L 108 H 14 107/62 100 Room Air 11/10/24 04:00 11/10/24 07:00 11/10/24 07:00 11/10/24 07:00 11/10/24 07:00 11/10/24 07:38 Oxygen Delivery Method Room Air Weight: 90.4 kg Body Mass Index (BMI) 35.3 Intake & Output: Intake and Output for Last 24 Hours 11/08/24 11/09/24 11/10/24 23:59 23:59 23:59 Intake Total 3140 / 3140 1184.6 / 1184.6 Balance 3140 / 3140 1184.6 / 1184.6 Lab / Micro Data 11/10/24 05:42 11/10/24 05:42 Labs: Laboratory Results - last 24 hr 11/09/24 18:54: WBC 6.1, RBC 3.80 L, Hgb 11.2 L, Hct 34.8 L, MCV 91.6, MCH 29.5, MCHC 32.2, RDW Std Deviation 45.1 H, RDW Coeff of Marielos 13.3, Plt Count 132 L, MPV 9.4, Immature Gran % (Auto) 1.200 H, Neut % (Auto) 89.6 H, Lymph % (Auto) 5.0 L, [place] % (Auto) 2.1, Eos % (Auto) 1.8, Baso % (Auto) 0.3, Absolute Neuts (auto) 5.4, Absolute Lymphs (auto) 0.30 L, Nucleated RBC % 0, PT 16.8 H, INR 1.3, APTT 29.6, Sodium 138, Potassium 3.3 L, Chloride 106, Carbon Dioxide 22.0, Anion Gap 10, BUN 30 H, Creatinine 0.70, Estim Creat Clear Calc 66.69, Est GFR (MDRD) Af Amer 105, Est GFR (MDRD) Non-Af 87, BUN/Creatinine Ratio 42.7 H, Glucose 109 H, Lactic Acid 2.3 H*, Calcium 8.7, Magnesium 1.9, Total Bilirubin 1.20 H, AST 233 H, ALT 211 H, Alkaline Phosphatase 512 H, Total Protein 6.6, Albumin 2.4 L, Globulin 4.2, Albumin/Globulin Ratio 0.6 L 11/09/24 20:14: Urine Color Yellow, Urine Clarity Clear, Urine pH 5.0, Ur Specific [place] 1.015, Urine Protein 30 H, Urine Glucose (UA) Normal, Urine Ketones 5 H, Urine Occult Blood 10 H, Urine Nitrite Negative, Urine Bilirubin 1 H, Urine Urobilinogen 1 H, Ur Leukocyte Esterase 25 H, Urine RBC 0 SEEN, Urine WBC 0-5 SEEN, Ur Squamous Epith Cells 0-5 SEEN, Urine Bacteria 0 SEEN, Urine Mucus 0 SEEN 11/09/24 23:13: Lactic Acid 0.7 11/09/24 23:35: PT 17.0 H, INR 1.4, APTT 29.9 11/10/24 05:42: WBC 5.9, RBC 3.28 L, Hgb 9.7 L, Hct 30.1 L, MCV 91.8, MCH 29.6, MCHC 32.2, RDW Std Deviation 45.6 H, RDW Coeff of Marielos 13.5, Plt Count 123 L, MPV 9.7, Immature Gran % (Auto) 0.300, Neut % (Auto) 78.5 H, Lymph % (Auto) 10.8 L, [place] % (Auto) 9.2, Eos % (Auto) 1.0, Baso % (Auto) 0.2, Absolute Neuts (auto) 4.6, Absolute Lymphs (auto) 0.63 L, Nucleated RBC % 0, APTT 95.3 H*, Sodium 142, Potassium 3.8, Chloride 113 H, Carbon Dioxide 22.0, Anion Gap 7, BUN 19 H, Creatinine 0.42 L, Estim Creat Clear Calc 67.83, Est GFR (MDRD) Af Amer 189, Est GFR (MDRD) Non-Af 157, BUN/Creatinine Ratio 45.0 H, Glucose 109 H, Calcium 7.9 L, Total Bilirubin 1.00, AST 156 H, ALT 162 H, Alkaline Phosphatase 426 H, Total Protein 5.8 L, Albumin 2.0 L, Globulin 3.8, Albumin/Globulin Ratio 0.5 L Micro: Microbiology 11/09/24 20:14 Urine, Clean Catch Urine Culture - Preliminary Culture exhibits no growth. 11/10/24 00:15 Wound - Knee Skin and Soft Tissue MRSA/MSSA (PCR - Final 11/09/24 19:20 Mucosa - Nose SARS-CoV-2, Influenza & RSV (PCR) - Final Radiography Diagnostic Testing: Radiology Impression Knee X-Ray 11/09/24 18:50 IMPRESSION: Intact right knee arthroplasty. Large knee joint effusion. Reading Location: [facility] Chest X-Ray 11/09/24 19:20 IMPRESSION: NEGATIVE SINGLE VIEW OF THE CHEST. Reading Location: [facility] Physical Exam Narrative GENERAL: cooperative HEENT: Atraumatic; normocephalic EYES; Anicteric, Normal Conjunctiva NECK; supple, normal thyroid, RESPIRATORY: Diminished to auscultation CARDIOVASCULAR: Regular S1 S2, GI: soft, normoactive bowel sounds, : No Renal angle tenderness; EXTREMITIES: Right knee in surgical dressing MUSCULOSKELETAL: no muscle wasting NEURO: Awake; no lateralizing signs. SKIN: No Rash PSYCH; Flat affect Assessment & Plan Assessment/Plan (1) Septic joint: PLAN: Plan Patient is a 74-year-old female with past medical history significant for recent acute pyogenic right total knee infection for which patient underwent irrigation and debridement with complete synovectomy and polyethylene exchange of the right knee on 10/13/[address] Velásquez who presented to the emergency department with nausea vomiting as well as chills 1. Sepsis ? Secondary to suspected septic arthritis. Patient started on antibiotics per protocol after cultures have been drawn with IV fluid resuscitation. Patient admitted to the intensive care unit consult placed to plastic surgery patient has been seen by Dr. Chisholm plan is for patient to undergo I&D 2. Hypokalemia -corrected for protocol 3. Mild thrombocytopenia ? Monitor 4. Anemia ? Secondary to chronic disorder monitoring H&H and transfuse if patient becomes symptomatic or hemoglobin falls below 7 5. Acute transaminitis ? Suspected to be secondary to sepsis monitor with daily LFTs 6. Acute renal insufficiency ruled out 7. Paroxysmal atrial fibrillation ? Patient rate control remains labile, patient is on Cardizem which she had apparently not received did modify dose. Patient is on apixaban held in anticipation of patient's surgical procedure 8. Class II obesity with BMI of 35.3 ? Weight loss advised 9. DVT prophylaxis ? Patient is on apixaban which is currently being held for her anticipated I&D Time spent in the patient's overall evaluation,decision-making process, review of diagnostic data, adjustment of management, discussion with other providers, nursing nursing and ancillary staff involved in patient's care documentation, 50 Minutes Charges/Coding Visit Charges Inpatient E&M: [id number] [facility] L3
[2024-11-10] MEDS: Vancomycin IV 1,000 MG/200 ML BAG 200 MG IV ×2 (09:56→20:20)
--- NOTE | 2024-11-10 10:38 | PCM.CONS.GEN ---
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 Taken to OR by Dr. Velásquez 10/13/24 for I&D and poly exchange. Discharged with picc and 6 weeks iv ceftriaxone, planned stop date 11/24/24. Now with new wound infection. OR planned for today. Bcx and wound cx pending. Cont empiric vanc/cefepime. Will follow, thank you HPI Consult Data Date of Consult: 11/10/24 HPI Narrative Reason for Consultation: PJI HPI Narrative: KRISTA TALAVERA, is a 74 F who was admitted in October for strep R knee PJI. Taken to OR by Dr. Velásquez 10/13/24 for I&D and poly exchange. Discharged with picc and 6 weeks iv ceftriaxone, planned stop date 11/24/24. Due to difficulty healing, was seeing Dr. Chisholm as outpt. Came to ED 11/09 with two days chills, worsened knee pain. Admitted on vanc/cefepime, OR planned for today. Full ROS performed and neg except as noted above. [facility] Medical History Loss of hearing History of steroid therapy Uses wheelchair Walker as ambulation aid Bladder disease Heartburn History of edema History of stress test History of echocardiogram Cardiology follow-up encounter Essential hypertension Other acute postprocedural pain Wears glasses Arthritis Migraine headache Former smoker History of pain when walking Anticoagulant long-term use Paroxysmal atrial fibrillation Anxiety Obesity Paroxysmal supraventricular tachycardia Dizziness Palpitations Uterovaginal prolapse, incomplete Home Medications ?Medication ?Instructions ?Recorded ?Last Taken ?Type acetaminophen 500 mg tablet 1,000 mg PO Q8 PRN pain 07/23/22 10/13/24 01:00 History ascorbic acid (vitamin C) 500 mg 500 mg PO QAM osteoporosis 05/31/24 Unknown History tablet (Vitamin C) cholecalciferol (vitamin D3) 25 25 mcg PO QDAY SUPPLEMENT 05/31/24 10/12/24 History mcg (1,000 unit) tablet apixaban 5 mg tablet (Eliquis) 5 mg PO BID BLOOD THINNER #180 tabs 08/26/24 10/12/24 Rx buspirone 5 mg tablet 5 mg PO .q1-2days ANXIETY 10/03/24 11/09/24 History magnesium oxide 400 mg (241.3 mg 400 mg PO QHS SUPPLEMENT 10/03/24 Unknown History magnesium) tablet ceftriaxone 2 gram intravenous 2 g IV Q24H 40 days 10/14/24 Unknown Rx solution diltiazem HCl 180 mg 180 mg PO QPM 11/09/24 Unknown History capsule,extended release 24 hr, controlled (DILT-XR) hydroxyzine HCl 25 mg tablet 25 mg PO QHS PRN PRN anxiety 11/09/24 Unknown History quetiapine 25 mg tablet 25 mg PO DAILY 11/09/24 Unknown History Allergy/AdvReac Type Severity Reaction Status Date / Time metoprolol AdvReac Mild Nausea Verified 11/09/24 17:55 flecainide AdvReac nausea Verified 11/09/24 17:55 Family History Mother CAD (coronary artery disease) Myocardial infarction, Onset Age: 80 Father Asthma COPD (chronic obstructive pulmonary disease) Brother Colon cancer COPD (chronic obstructive pulmonary disease) Former smoker Grandmother Breast cancer Grandfather Colon cancer Surgical History History of knee replacement (02/18/24) History of total hip arthroplasty (05/08/21) Hx of total hip arthroplasty History of esophagogastroduodenoscopy (EGD) Hx of colonoscopy History of bladder suspension procedure (2017) H/O total hysterectomy (2018) Social History (Updated 11/10/24 @ 00:[address] Shadia Nance MD) household members: spouse Smoking Status: Former smoker how long ago did patient quit smokin years ago alcohol intake: never substance use type: does not use caffeine: Yes Type: coffee Number of servings: 2 Physical Exam Const alert, oriented x3 and no apparent distress General Appearance: cooperative HEENT normocephalic and head/scalp atraumatic Eyes PERRL and EOMs intact bilaterally Neck supple and No nodes Resp normal air movement and clear to auscultation bilaterally Cardio regular rate and regular rhythm GI soft to palpation, non-tender and non-distended Extremity General Extremity: edema Skin Skin Narrative: R knee wound Neuro CN's II-XII intact bilaterally Lab / Micro Data Attestation: I reviewed the patient's lab results. 11/10/24 05:42 11/10/24 05:42 Labs: Laboratory Results - last 24 hr 11/09/24 18:54: WBC 6.1, RBC 3.80 L, Hgb 11.2 L, Hct 34.8 L, MCV 91.6, MCH 29.5, MCHC 32.2, RDW Std Deviation 45.1 H, RDW Coeff of Marielos 13.3, Plt Count 132 L, MPV 9.4, Immature Gran % (Auto) 1.200 H, Neut % (Auto) 89.6 H, Lymph % (Auto) 5.0 L, [place] % (Auto) 2.1, Eos % (Auto) 1.8, Baso % (Auto) 0.3, Absolute Neuts (auto) 5.4, Absolute Lymphs (auto) 0.30 L, Nucleated RBC % 0, PT 16.8 H, INR 1.3, APTT 29.6, Sodium 138, Potassium 3.3 L, Chloride 106, Carbon Dioxide 22.0, Anion Gap 10, BUN 30 H, Creatinine 0.70, Estim Creat Clear Calc 66.69, Est GFR (MDRD) Af Amer 105, Est GFR (MDRD) Non-Af 87, BUN/Creatinine Ratio 42.7 H, Glucose 109 H, Lactic Acid 2.3 H*, Calcium 8.7, Magnesium 1.9, Total Bilirubin 1.20 H, AST 233 H, ALT 211 H, Alkaline Phosphatase 512 H, Total Protein 6.6, Albumin 2.4 L, Globulin 4.2, Albumin/Globulin Ratio 0.6 L 11/09/24 20:14: Urine Color Yellow, Urine Clarity Clear, Urine pH 5.0, Ur Specific [place] 1.015, Urine Protein 30 H, Urine Glucose (UA) Normal, Urine Ketones 5 H, Urine Occult Blood 10 H, Urine Nitrite Negative, Urine Bilirubin 1 H, Urine Urobilinogen 1 H, Ur Leukocyte Esterase 25 H, Urine RBC 0 SEEN, Urine WBC 0-5 SEEN, Ur Squamous Epith Cells 0-5 SEEN, Urine Bacteria 0 SEEN, Urine Mucus 0 SEEN 11/09/24 23:13: Lactic Acid 0.7 11/09/24 23:35: PT 17.0 H, INR 1.4, APTT 29.9 11/10/24 05:42: WBC 5.9, RBC 3.28 L, Hgb 9.7 L, Hct 30.1 L, MCV 91.8, MCH 29.6, MCHC 32.2, RDW Std Deviation 45.6 H, RDW Coeff of Marielos 13.5, Plt Count 123 L, MPV 9.7, Immature Gran % (Auto) 0.300, Neut % (Auto) 78.5 H, Lymph % (Auto) 10.8 L, [place] % (Auto) 9.2, Eos % (Auto) 1.0, Baso % (Auto) 0.2, Absolute Neuts (auto) 4.6, Absolute Lymphs (auto) 0.63 L, Nucleated RBC % 0, APTT 95.3 H*, Sodium 142, Potassium 3.8, Chloride 113 H, Carbon Dioxide 22.0, Anion Gap 7, BUN 19 H, Creatinine 0.42 L, Estim Creat Clear Calc 67.83, Est GFR (MDRD) Af Amer 189, Est GFR (MDRD) Non-Af 157, BUN/Creatinine Ratio 45.0 H, Glucose 109 H, Calcium 7.9 L, Total Bilirubin 1.00, AST 156 H, ALT 162 H, Alkaline Phosphatase 426 H, Total Protein 5.8 L, Albumin 2.0 L, Globulin 3.8, Albumin/Globulin Ratio 0.5 L Micro: Microbiology 11/09/24 20:14 Urine, Clean Catch Urine Culture - Preliminary Culture exhibits no growth. 11/10/24 00:15 Wound - Knee Skin and Soft Tissue MRSA/MSSA (PCR - Final 11/09/24 19:20 Mucosa - Nose SARS-CoV-2, Influenza & RSV (PCR) - Final Imaging Radiology Impression Knee X-Ray 11/09/24 18:50 IMPRESSION: Intact right knee arthroplasty. Large knee joint effusion. Reading Location: [facility] Chest X-Ray 11/09/24 19:20 IMPRESSION: NEGATIVE SINGLE VIEW OF THE CHEST. Reading Location: [facility]
[2024-11-10] MEDS: oxyCODONE 5 MG Tablet PO ×2 (11:25→20:50)
[2024-11-10] MEDS: dilTIAZem 60 MG Tablet PO ×2 (11:26→18:03)
--- NOTE | 2024-11-10 12:08 | CHAPLAIN ---
Type of Pastoral Visit _x__ Initial Visit ___ Follow-up Visit ___ On-call Visit ___ General Patient Visit ___ Spiritual Assessment ___ Family Conference ___ Bereavement ___ Rapid Response ___ Code Blue ___ Other (describe below) Pastoral Care Referral From _x__ Patient ___ Family ___ Nurse ___ Physician ___ Mechanical Piping Designer ___ Package Winder ___ Other (describe below) Sacrament/Intervention _x__ Active listening ___ Anointing ___ Bahai ___ Bereavement ___ Communion ___ Yumi exploration ___ ___ Life review _x__ Prayer ___ Reconciliation ___ Sacrament of Sick _x__ Supportive presence ___ Wedding ___ Other (describe below) Pastoral Comments patient reviews the journey of her surgeries and complications; pt asks speaks of her 's recent cancer surgery and his good results so far; spouse is in the room with the patient; pt admits that she has some anger about how she has had disappointing results; pt does also have good support in family and is connected to a yumi community; pt welcomes presence and prayers for support
--- NOTE | 2024-11-10 14:12 | CON.PCM_ITS ---
Assessment & Plan Assessment/Plan (1) Infected prosthetic knee joint: PLAN: Patient is currently under treatment for right knee periprosthetic joint infection. She had an acute washout. We are continuing to treat the wound at the distal portion of the incision. She is under the care of in consultation of plastics as well. We have been monitoring her closely. There is not appear to be an acute clinical change in her knee. Lab work including the ESR continues to trend in a positive direction. Patient has remained on IV antibiotics at the time of the most recent surgical intervention. Ultimately, at this time in order to establish the knee is a source of acute septic bacteremia because I have recommended that we aspirate the knee. Patient is not clinically unstable at this time. Additionally further surgery if unnecessary likely will lead to further wound complications associated with this. We have discussed the case with plastics. She is a candidate for a medial gastroc flap and split-thickness skin graft if needed. However patient has so far wished to proceed with the wound VAC and close clinical monitoring. Based on our previous clinical plan and the current clinical picture have recommended an aspiration. Aspiration right knee: Sterile gloves were donned. Chlorhexidine prep as well as alcohol prep were used to prep the lateral suprapatellar portal. 18-gauge needle was placed into the knee and 25 cc of blood-tinged cloudy fluid was aspirated. Needle was removed and Band-Aid was placed. Fluid was sent for cell count with differential and cultures. Will follow these. At this time we will follow cultures. Surgical intervention will be based on conversations with plastic surgery and laboratory and clinical pictures including cultures. Ultimately, if patient does continue with positive cultures we have discussed repeat washout versus explant with placement of antibiotic spacer. However, if she does need another surgery based on her current clinical picture we would likely want to coordinate it with plastics because further surgery will likely result in need for soft tissue coverage over the anterior knee. Will make her n.p.o. after midnight. Will her to eat today. [facility] Office: HPI Consult Data Date of Consult: 11/10/24 HPI Narrative Reason for Consultation: History of right knee surgery, right knee wound HPI Narrative: KRISTA TALAVERA, is a 74 F who presents with a right knee wound status post total knee replacement with subsequent irrigation debridement polyethylene exchange. Patient had an uneventful total knee replacement in 2023. On October of this year she was brought back to the operating room on October 13 after having a acute respiratory infection and then swelling in her right knee she was found to have a right knee streptococcal infection. At her 2-week postoperative visit she had some breakdown of the distal wound. She has been following plastics in the wound center for this. There has been some talk about using a flap to cover this area. Patient has been leaning towards using the wound VAC which we have been doing. There is been some local debridements however there is not been any signs of acute recurrent septic joint infection. There appears to be appropriate soft tissue coverage this time to allow for granulation tissue. However, patient notes that she was lightheaded last evening and started to have some shakes she came into the hospital and did have some clinical signs of sepsis. She was admitted to the ICU and placed on further antibiotics. There was some concern that her knee may be reinfected. She has been on Rocephin since the time of her irrigation debridement she has been on IV antibiotics during that time. She reports no significant change in her knee symptoms. I do have images from her examination with the plastic surgeon on Thursday to compare to today's exam. Patient is resting comfortably in bed with stable vital signs at this time. [facility] Medical History Loss of hearing History of steroid therapy Uses wheelchair Walker as ambulation aid Bladder disease Heartburn History of edema History of stress test History of echocardiogram Cardiology follow-up encounter Essential hypertension Other acute postprocedural pain Wears glasses Arthritis Migraine headache Former smoker History of pain when walking Anticoagulant long-term use Paroxysmal atrial fibrillation Anxiety Obesity Paroxysmal supraventricular tachycardia Dizziness Palpitations Uterovaginal prolapse, incomplete Home Medications ?Medication ?Instructions ?Recorded ?Last Taken ?Type acetaminophen 500 mg tablet 1,000 mg PO Q8 PRN pain 10/13/24 01:00 History ascorbic acid (vitamin C) 500 mg 500 mg PO QAM osteopo rosis 05/31/24 Unknown History tablet (Vitamin C) cholecalciferol (vitamin D3) 25 25 mcg PO QDAY SUPPLEM ENT 05/31/24 10/12/24 History mcg (1,000 unit) tablet apixaban 5 mg tablet (Eliquis) 5 mg PO BID BLOOD THINN ER #180 tabs 08/26/24 10/12/24 Rx buspirone 5 mg tablet 5 mg PO .q1-2days ANXIETY 11/09/24 History magnesium oxide 400 mg (241.3 mg 400 mg PO QHS SUPPLEM ENT 10/03/24 Unknown History magnesium) tablet ceftriaxone 2 gram intravenous 2 g IV Q24H 40 days 07/29 Unknown Rx solution diltiazem HCl 180 mg 180 mg PO QPM 11/09/24 Unkno wn History capsule,extended release 24 hr, controlled (DILT-XR) hydroxyzine HCl 25 mg tablet 25 mg PO QHS PRN PRN anxi ety 11/09/24 Unknown History quetiapine 25 mg tablet 25 mg PO DAILY 11/09/24 Unkn own History Allergy/AdvReac Type Severity Reaction Status Date / Time metoprolol AdvReac Mild Nausea Verified 11/09/24 17:55 flecainide AdvReac nausea Verified 11/09/24 17:55 Family History Mother CAD (coronary artery disease) Myocardial infarction, Onset Age: 80 Father Asthma COPD (chronic obstructive pulmonary disease) Brother Colon cancer COPD (chronic obstructive pulmonary disease) Former smoker Grandmother Breast cancer Grandfather Colon cancer Surgical History History of knee replacement (02/18/24) History of total hip arthroplasty (05/08/21) Hx of total hip arthroplasty History of esophagogastroduodenoscopy (EGD) Hx of colonoscopy History of bladder suspension procedure (2017) H/O total hysterectomy (2018) Social History household members: spouse Smoking Status: Former smoker how long ago did patient quit smokin years ago alcohol intake: never substance use type: does not use caffeine: Yes Type: coffee Number of servings: 2 ROS ROS Narrative 14 point review of systems outside of what is mentioned in the HPI is negative Physical Exam Const alert, oriented x3 and no apparent distress General Appearance: cooperative and comfortable HEENT normocephalic Eyes PERRL Neck no JVD Resp normal respiratory effort Cardio regular rate GI non-distended Extremity Extremity Narrative: Right lower extremity: Patient's right knee is without pain with passive range of motion. Patient has normal postoperative swelling. No erythema. No change in erythema from most recent office visit. Patient does have wound breakdown of the distal portion of the incision with granulation tissue deep no exposed bone no exposed implant. No erythema around the skin edges. A couple of nylon sutures remain. Wound was palpated to have found to have firm tissue deep without deep tunneling or tracking. No evidence of acute active drainage at this time. Neurovascular intact distally. Skin Skin Narrative: See description of wound above Neuro oriented x3 Psych affect normal Medical Records Data Attestation: I reviewed the patient's medical records Lab / Micro Data Attestation: I reviewed the patient's lab results. Lab results narrative: Laboratory data was reviewed extensively. Patient's ESR is decreased from initial preoperative and postoperative inflammatory markers for her acute knee infection. White count is not elevated. 11/10/24 05:42 11/10/24 05:42 Labs: Laboratory Results - last 24 hr 11/09/24 18:54: WBC 6.1, RBC 3.80 L, Hgb 11.2 L, Hct 34.8 L, MCV 91.6, MCH 29.5, MCHC 32.2, RDW Std Deviation 45.1 H, RDW Coeff of Marielos 13.3, Plt Count 132 L, MPV 9.4, Immature Gran % (Auto) 1.200 H, Neut % (Auto) 89.6 H, Lymph % (Auto) 5.0 L, [place] % (Auto) 2.1, Eos % (Auto) 1.8, Baso % (Auto) 0.3, Absolute Neuts (auto) 5.4, Absolute Lymphs (auto) 0.30 L, Nucleated RBC % 0, PT 16.8 H, INR 1.3, APTT 29.6, Sodium 138, Potassium 3.3 L, Chloride 106, Carbon Dioxide 22.0, Anion Gap 10, BUN 30 H, Creatinine 0.70, Estim Creat Clear Calc 66.69, Est GFR (MDRD) Af Amer 105, Est GFR (MDRD) Non-Af 87, BUN/Creatinine Ratio 42.7 H, Glucose 109 H, Lactic Acid 2.3 H*, Calcium 8.7, Magnesium 1.9, Total Bilirubin 1.20 H, AST 233 H, ALT 211 H, Alkaline Phosphatase 512 H, Total Protein 6.6, Albumin 2.4 L, Globulin 4.2, Albumin/Globulin Ratio 0.6 L 11/09/24 20:14: Urine Color Yellow, Urine Clarity Clear, Urine pH 5.0, Ur Specific Winthrop 1.015, Urine Protein 30 H, Urine Glucose (UA) Normal, Urine Ketones 5 H, Urine Occult Blood 10 H, Urine Nitrite Negative, Urine Bilirubin 1 H, Urine Urobilinogen 1 H, Ur Leukocyte Esterase 25 H, Urine RBC 0 SEEN, Urine WBC 0-5 SEEN, Ur Squamous Epith Cells 0-5 SEEN, Urine Bacteria 0 SEEN, Urine Mucus 0 SEEN 11/09/24 23:13: Lactic Acid 0.7 11/09/24 23:35: PT 17.0 H, INR 1.4, APTT 29.9 11/10/24 05:42: WBC 5.9, RBC 3.28 L, Hgb 9.7 L, Hct 30.1 L, MCV 91.8, MCH 29.6, MCHC 32.2, RDW Std Deviation 45.6 H, RDW Coeff of Marielos 13.5, Plt Count 123 L, MPV 9.7, Immature Gran % (Auto) 0.300, Neut % (Auto) 78.5 H, Lymph % (Auto) 10.8 L, Stuts[place] % (Auto) 9.2, Eos % (Auto) 1.0, Baso % (Auto) 0.2, Absolute Neuts (auto) 4.6, Absolute Lymphs (auto) 0.63 L, Nucleated RBC % 0, APTT 95.3 H*, Sodium 142, Potassium 3.8, Chloride 113 H, Carbon Dioxide 22.0, Anion Gap 7, BUN 19 H, C reatinine 0.42 L, Estim Creat Clear Calc 67.83, Est GFR (MDRD) Af Amer 189, Est GFR (MDRD) Non-Af 157, BUN/Creatinine Ratio 45.0 H, Glucose 109 H, Calcium 7.9 L , Total Bilirubin 1.00, AST 156 H, ALT 162 H, Alkaline Phosphatase 426 H, Total Protein 5.8 L, Albumin 2.0 L, Globulin 3.8, Albumin/Globulin Ratio 0.5 L Micro: Microbiology 11/09/24 20:14 Urine, Clean Catch Urine Culture - Preliminary Culture exhibits no growth. 11/10/24 00:15 Wound - Knee Skin and Soft Tissue MRSA/MSSA (PCR - Final 11/09/24 19:20 Mucosa - Nose SARS-CoV-2, Influenza & RSV (PCR) - Final Imaging Radiology Impression Knee X-Ray 11/09/24 18:50 IMPRESSION: Intact right knee arthroplasty. Large knee joint effusion. Reading Location: [facility] Chest X-Ray 11/09/24 19:20 IMPRESSION: NEGATIVE SINGLE VIEW OF THE CHEST. Reading Location: [facility]
[2024-11-10] MEDS: Acetaminophen 500 MG Tablet 1000 MG PO ×2 (14:42→20:44)
[2024-11-10 14:50] LABS: AUTO B FLUID DILUENT BKGD CT WBC <0.1 RBC <0.01 (W<.1,R<.01); Source / Synovial Fluid RIGHT KNEE
[2024-11-10 14:51] LABS: Appearance /Synovial Fluid VISCOUS (CLEAR); Color / Synovial Fluid RED (Pale Yellow)
[2024-11-10 14:53] LABS: Synovial Fld Mononuclear WBC # 0.457 10^3/ul; Synovial Fld Mononuclear WBC % 7.8 %; Synovial Fld Polynuclear WBC # 5.423 10^3/uL; Synovial Fld Polynuclear WBC % 92.2 %
--- NOTE | 2024-11-10 15:00 | CASEMGMT ---
RN CM readmission note: Index admission: 10/14-10/17. Rt prosthetic knee joint infection. Rt TKA was 02/18/24, began to have problems again w/her knee Oct 05. Had joint aspiration OP w/Dr Velásquez,. Admitted to [facility]. S/P I & D w/synovectomy & polyethylene exchange rt knee. ID c/s, IV atb's, wound vac. Dc'd home w/[facility] for wound vac care and IV atbs. Current admission: 11/09. Sepsis, septic knee RN CM to room to discuss readmission and discharge planning. Introduced self and role. Pt resting in bed, and visitors @ bedside. RN CM offered to return later, but pt stated for RN CM to talk w/her while visitors present. Pt states she had been managing well @ home and has taking medications as prescribed. [facility] has been coming out to see her for SN and PT. She has been doing home IV atb's, gets supplies from [facility], and has all needed supplies/medications @ home that is needed. She has went to f/u appts as instructed. She had an appt scheduled w/Dr Craig today, but this has been cx'd d/t pt coming to the hospital. She had an upcoming appt w/Dr Chisholm on 11/14, which she states has been cancelled. She also had an upcoming appt w/Dr Velásquez tomorrow, that has been cx'd. She would like to return home @ discharge, would like to resume /[facility], and declines wanting list of other [facility] options. Marion @ [facility] aware pt has been admitted to [facility] and will not be discharging until some time next week, at the earliest. Call placed to [facility] and spoke w/Yoandy. He states was aware pt has been admitted to [facility] and further delivery is currently on hold. Pt and deny having further discharge needs/concerns at this time. PT/OT evals pending. Plan: Home w/[facility] for IV atb's and wound vac care/dsg changes. Follow for any changes w/wound vac & IV atb's. Follow for any therapy recommendations. Suzanne COBB RN CM
[2024-11-10 15:11] LABS: Lymph 2 %; Monocyte /Synovial Fluid 7 %; Neutrophil 91 % (0-25)
[2024-11-10 15:12] LABS: Body Fluid QC Type(s) 0206 BF1
--- NOTE | 2024-11-10 16:08 | WOUNDNOTE ---
wound photo: right knee
[2024-11-10 16:38] LABS: Partial Thromboplast Time 64.9 Seconds (24.1-36.2)
[2024-11-10 22:45] LABS: Partial Thromboplast Time 68.5 Seconds (24.1-36.2)
[2024-11-11] VITALS (7 sets, daily range): BP systolic 96–128; BP diastolic 56–74; PULSE 105–137; RESP 16–23; TEMP 36.4–37; O2SAT 92–96; BMI 35.4
[2024-11-11] MEDS: dilTIAZem 60 MG Tablet PO ×5 (00:52→23:48)
[2024-11-11] MEDS: HEPARIN/D5w 25,000 UNITS 25,000 UNITS/250 ML IV.SOLN. 10 UNITS CONT INF (00:53)
[2024-11-11 03:51] LABS: Absolute Lymphocyte Count 0.63 X10^3/uL (0.83-4.51); Absolute Neutrophil Count 5.3 X10^3/uL (2.0-7.7); Basophil# 0.02 X10^3/uL; Basophil% 0.3 % (0-1); Eosinophil# 0.38 X10^3/uL; Eosinophils% 5.5 % (0-5); Hematocrit 34.1 % (37-47); Hemoglobin 10.8 g/dL (12.0-15.0); Lymphocyte # 0.63 X10^3/ul (0.83-4.51); Lymphocyte % 9.2 % (19-41); Mean Corp Hgb Conc 31.7 g/dL (32-36); Mean Corpuscular Hgb 29.1 pg (27.0-32.0); Mean Corpuscular Volume 91.9 fL (81-99); Monocyte# 0.49 X10^3/uL; Monocyte% 7.1 % (0-10); NRBC Flagged by Analyzer 0 % (0-5); Neutrophil # 5.32 X10^3/uL (2.7-7.7); Neutrophil % 77.5 % (47-70); Platelet Count 162 K/mm3 (150-450); RBC Distribution Width CV 13.8 % (11.6-14.6); Red Blood Count 3.71 M/mm3 (4.2-5.4); White Blood Count 6.9 K/mm3 (4.4-11.0)
[2024-11-11 04:09] LABS: Anion Gap 6 (5-15); BUN 15 mg/dL (7-18); BUN/Creat Ratio 31.6 RATIO (10-20); Calcium,Total 8.4 mg/dL (8.5-10.1); Chloride 109 mmol/L (98-107); Creatinine, Serum 0.48 mg/dL (0.55-1.02); EST Glomerular Filtration Rate 137 mL/min (>60); Est Glom Filt Rate - Afr Amer 165 mL/min (>60); Estimated Creatinine Clearance 67.83 ml/min; Glucose 126 mg/dL (74-106); Phosphorus 2.8 mg/dL (2.5-4.9); Potassium 3.6 mmol/L (3.5-5.1); Sodium Level 137 mmol/L (136-145)
[2024-11-11 04:16] LABS: Partial Thromboplast Time 75.2 Seconds (24.1-36.2)
[2024-11-11] MEDS: Cefepime HCl 2 GM in 0.9% Normal Saline (100mL MB+) 100 ML IV ×3 (06:40→23:43)
[2024-11-11] MEDS: Acetaminophen 500 MG Tablet 1000 MG PO ×3 (06:41→23:46)
[2024-11-11] MEDS: Mag Hydrox/Al Hydrox/Simeth 30 ML UDC PO (06:55)
--- NOTE | 2024-11-11 07:10 | PN.HOSP_ITS ---
Reason for Visit Reason for Visit: Diagnoses Pyogenic arthritis, unspecified (11/09/24) Infection and inflammatory reaction due to other internal joint prosthesis, initial encounter (11/09/24) Presence of unspecified artificial knee joint (11/09/24) Subjective Subjective Patient underwent bedside aspiration of the right knee. Joint aspirate sent for Gram stain and culture. Patient was also seen in consultation by ID antibiotics subsequently adjusted Objective Data Objective Data Vital Signs: Vital Signs Temp Pulse Resp BP Pulse Ox O2 Del Method O2 Flow Rate 98.6 F 137 H 23 H 128/74 H 96 Room Air 2 11/11/24 06:15 11/11/24 06:15 11/11/24 06:15 11/11/24 06:15 11/11/24 06:15 11/11/24 06:15 11/11/24 00:58 Oxygen Flow Rate (L/min) 2 Oxygen Delivery Method Room Air Weight: 90.8 kg Body Mass Index (BMI) 35.4 Intake & Output: Intake and Output for Last 24 Hours 11/09/24 11/10/24 11/11/24 23:59 23:59 23:59 Intake Total 3140 / 3140 3095.43 / 3095.43 188 / 188 Balance 3140 / 3140 3095.43 / 3095.43 188 / 188 Medical Nutrition Assessment Dietitian: Malnutrition Criteria Met Start: 11/10/24 11:47 Freq: Status: Active Protocol: Document 11/10/24 16:02 SB (Rec: 11/10/24 16:02 SB [id number]) Nutrition Malnutrition Evidence of Yes Malnutrition Exists Malnutrition (severe Acute Illness/Injury ): Evidenced By Suboptimal Energy Intake (Severe),Weight Loss (Severe) Intake Problem Increased Nutrient Needs (specify) Etiology protein related to wound healing Signs/Symptoms as evidenced by open surgical wound on R knee Status Active Problem Clinical Problem Acute Disease or Injury Related Malnutrition Etiology severe related to inadequate oral intake and recent illnesses Signs/Symptoms as evidenced by PO meeting <75% of estimated nutrition needs and 6% unintentional weight loss x 1 month. Status Active Problem Recommendation Dietitian Recommend advanced diet as tolerated to regular diet. Recommendations/ Recommend nick BID to promote wound healing and 120ml Changes ensure plus high protein TID with medpass, as diet is advanced. Will monitor weight trends. Reviewed and approved by Brianna Haddad RDN, [place]. Lab / Micro Data 11/11/24 03:45 11/11/24 03:45 Labs: Laboratory Results - last 24 hr 11/10/24 13:35: Fluid Source Cancelled, Fluid Color Cancelled, Fluid Appearance Cancelled, Fluid WBC Cancelled, Fluid RBC Cancelled, Fluid Tot Cell Count Cancelled, Fld Polynuclear WBCs # Cancelled, Fld Polynuclear WBCs % Cancelled, Fluid Mononuclear WBCs Cancelled, Fld Mononuclear WBCs % Cancelled, Fluid Neutrophils Cancelled, Fluid Lymphocytes Cancelled, Fluid Monocytes Cancelled, Fluid Plasma Cells Cancelled, Fluid Macrophages Cancelled, Fld Mesothelial Cells Cancelled, Fluid Other Cells Cancelled, Fl Pathologist Comment Cancelled, Fluid Comment 2 Cancelled, Synovial Source RIGHT KNEE, Synovial Color RED, Synovial Appearance VISCOUS, Synovial WBC 58.8000 H, Synovial RBC 0.120 H, Synovial Tot Cell Ct 59.3300 H, Synov Polynuclear WBCs 5.423, Synov Mononuclear WBCs 0.457, S ynovial Neutrophils 91 H, Synovial Lymphocytes 2, Synovial Monocytes 7, Synovial Polynuclear % 92.2, Synovial Mononuclear % 7.8, Synovial Path Comment May follow 11/10/24 16:05: APTT 64.9 H 11/10/24 22:15: APTT 68.5 H 11/11/24 03:45: WBC 6.9, RBC 3.71 L, Hgb 10.8 L, Hct 34.1 L, MCV 91.9, MCH 29.1, MCHC 31.7 L, RDW Std Deviation 47.0 H, RDW Coeff of Marielos 13.8, Plt Count 162, MPV 10.0, Immature Gran % (Auto) 0.400, Neut % (Auto) 77.5 H, Lymph % (Auto) 9.2 L, Bartholomew % (Auto) 7.1, Eos % (Auto) 5.5 H, Baso % (Auto) 0.3, Absolute Neuts (auto) 5.3, Absolute Lymphs (auto) 0.63 L, Nucleated RBC % 0, APTT 75.2 H, Sodium 137, Potassium 3.6, Chloride 109 H, Carbon Dioxide 22.0, Anion Gap 6, BUN 15, C reatinine 0.48 L, Estim Creat Clear Calc 67.83, Est GFR (MDRD) Af Amer 165, Est GFR (MDRD) Non-Af 137, BUN/Creatinine Ratio 31.6 H, Glucose 126 H, Calcium 8.4 L , Phosphorus 2.8, Magnesium 2.0 Micro: Microbiology 11/10/24 00:15 Wound - Knee Gram Stain - Final 11/10/24 00:15 Wound - Knee Skin and Soft Tissue MRSA/MSSA (PCR - Final 11/09/24 20:14 Urine, Clean Catch Urine Culture - Preliminary Culture exhibits no growth. 11/09/24 19:20 Mucosa - Nose SARS-CoV-2, Influenza & RSV (PCR) - Final Radiography Diagnostic Testing: Radiology Impression Venous Doppler Study 11/09/24 22:09 Interpretation Summary Deep veins of the right lower extremity are patent and compressible segmentally. There is no evidence of right lower extremity deep vein thrombosis. The right great saphenous vein appears patent and compressible segmentally. Ordering Physician: Shadia Nance Referring Physician: Damian Craig Performed By: Tomer Vasquez RVT Physical Exam Narrative GENERAL: cooperative HEENT: Atraumatic; normocephalic EYES; Anicteric, Normal Conjunctiva NECK; supple, normal thyroid, RESPIRATORY: Diminished to auscultation CARDIOVASCULAR: Regular S1 S2, GI: soft, normoactive bowel sounds, : No Renal angle tenderness; EXTREMITIES: Right knee in surgical dressing MUSCULOSKELETAL: no muscle wasting NEURO: Awake; no lateralizing signs. SKIN: No Rash PSYCH; Flat affect Assessment & Plan Assessment/Plan (1) Septic joint: PLAN: Plan Patient is a 74-year-old female with past medical history significant for recent acute pyogenic right total knee infection for which patient underwent irrigation and debridement with complete synovectomy and polyethylene exchange of the right knee on 10/13/[address] Velásquez who presented to the emergency department with nausea vomiting as well as chills 1. Sepsis ? Secondary to suspected septic arthritis. Patient started on antibiotics per protocol after cultures have been drawn with IV fluid resuscitation. Patient admitted to the intensive care unit consult placed to plastic surgery patient has been seen by Dr. Chisholm plan is for patient to undergo I&D ? 11/11/2024Patient underwent bedside aspiration of the right knee by Dr. Velásquez. Joint aspirate sent for Gram stain and culture. Patient cell counts had a predominance of neutrophils suggestive of septic joint. Patient was also seen in consultation by ID antibiotics subsequently adjusted 2. Hypokalemia -corrected for protocol 3. Mild thrombocytopenia ? Monitor 4. Anemia ? Secondary to chronic disorder monitoring H&H and transfuse if patient becomes symptomatic or hemoglobin falls below 7 5. Acute transaminitis ? Suspected to be secondary to sepsis monitor with daily LFTs 6. Acute renal insufficiency ruled out 7. Paroxysmal atrial fibrillation ? Patient rate control remains labile, patient is on Cardizem which she had apparently not received did modify dose. Patient is on apixaban held in anticipation of patient's surgical procedure 8. Class II obesity with BMI of 35.3 ? Weight loss advised 9. DVT prophylaxis ? Patient is on apixaban which is currently being held for her anticipated I&D Time spent in the patient's overall evaluation,decision-making process, review of diagnostic data, adjustment of management, discussion with other providers, nursing nursing and ancillary staff involved in patient's care documentation, 50 Minutes Charges/Coding Visit Charges Inpatient E&M: 37162 [facility] L3
[2024-11-11 09:30] LABS: Vancomycin, Trough Level 10.3 ug/mL (5.0-15.0)
[2024-11-11] MEDS: QUEtiapine 25 MG Tablet PO (09:37)
[2024-11-11] MEDS: busPIRone 5 MG Tablet PO (09:37)
[2024-11-11] MEDS: Ascorbic Acid 500 MG Tablet PO (09:38)
--- NOTE | 2024-11-11 09:45 | PCM.RX.CS ---
Consult Type of Intervention Type of Consult: Follow-up Suspected Infection Suspected Infection: Other (septic joint) Labs Labs: Sodium 137 mmol/L (136-145) 11/11/24 03:45 Potassium 3.6 mmol/L (3.5-5.1) 11/11/24 03:45 Chloride 109 mmol/L (98-107) H 11/11/24 03:45 Carbon Dioxide 22.0 mmol/L (21.0-32.0) 11/11/24 03:45 Anion Gap 6 (5-15) 11/11/24 03:45 BUN 15 mg/dL (7-18) 11/11/24 03:45 Creatinine 0.48 mg/dL (0.55-1.02) L 11/11/24 03:45 Est GFR (MDRD) Af Amer 165 mL/min (>60) 11/11/24 03:45 Est GFR (MDRD) Non-Af 137 mL/min (>60) 11/11/24 03:45 BUN/Creatinine Ratio 31.6 RATIO (10-20) H 11/11/24 03:45 Glucose 126 mg/dL (74-106) H 11/11/24 03:45 Vancomycin Trough 10.3 ug/mL (5.0-15.0) 11/11/24 08:52 Microbiology Microbiology: Microbiology 11/10/24 00:15 Wound - Knee Gram Stain - Final 11/10/24 00:15 Wound - Knee Skin and Soft Tissue MRSA/MSSA (PCR - Final 11/09/24 20:14 Urine, Clean Catch Urine Culture - Preliminary Culture exhibits no growth. 11/09/24 19:20 Mucosa - Nose SARS-CoV-2, Influenza & RSV (PCR) - Final Goal Trough Goal Trough: 15-20 mcg/mL Pharmacy Plan for Drug Dosing Pharmacy Plan for Drug Dosing: VANCOMYCIN LEVEL RECEIVED Current Vancomycin Dose: 1000mg Q12H Number of Doses Received: 1000mg x2, 2000mg x1 Vancomycin Level: 10.3 Hours Since Last Dose: 12.5 Renal Function: sCr 0.48 Renal Function Trend: stable Lab/Micro: pending Vancomycin Plan/Comments: Increase Vancomycin dosing regimen to 1500mg Q12H Pending Level: Vancomycin trough @ 2130 11/12/24 Pharmacy Service will continue to monitor and adjust dosing as required. Follow-Up Labs Follow-Up Labs: Trough: Vancomycin (11/12/24 @ 21:30)
[2024-11-11] MEDS: Ondansetron 4 MG/2 ML Vial IV (09:46)
--- NOTE | 2024-11-11 09:54 | PN.SURG_ITS ---
Subjective Subjective Doing well this morning, but did not get a lot of sleep last night. Joint was aspirated at bedside yesterday by orthopedic surgery. Cultures pending. If cultures positive then we will likely exchange for antibiotic spacer and will request medial gastroc flap. Objective Data Objective Data Vital Signs: Vital Signs Temp Pulse Resp BP Pulse Ox O2 Del Method O2 Flow Rate 98.0 F 118 H 18 110/56 L 96 Room Air 2 11/11/24 09:36 11/11/24 09:36 11/11/24 09:36 11/11/24 09:36 11/11/24 09:36 11/11/24 09:36 11/11/24 00:58 Oxygen Flow Rate (L/min) 2 Oxygen Delivery Method Room Air Weight: 200 lb 2.876 oz Body Mass Index (BMI) 35.4 Intake & Output: Intake and Output for Last 24 Hours 11/09/24 11/10/24 11/11/24 23:59 23:59 23:59 Intake Total 3140 / 3140 3095.43 / 3095.43 288 / 288 Balance 3140 / 3140 3095.43 / 3095.43 288 / 288 Medical Nutrition Assessment Dietitian: Malnutrition Criteria Met Start: 11/10/24 11:47 Freq: Status: Active Protocol: Document 11/10/24 16:02 SB (Rec: 11/10/24 16:02 SB [id number]) Nutrition Malnutrition Evidence of Yes Malnutrition Exists Malnutrition (severe Acute Illness/Injury ): Evidenced By Suboptimal Energy Intake (Severe),Weight Loss (Severe) Intake Problem Increased Nutrient Needs (specify) Etiology protein related to wound healing Signs/Symptoms as evidenced by open surgical wound on R knee Status Active Problem Clinical Problem Acute Disease or Injury Related Malnutrition Etiology severe related to inadequate oral intake and recent illnesses Signs/Symptoms as evidenced by PO meeting <75% of estimated nutrition needs and 6% unintentional weight loss x 1 month. Status Active Problem Recommendation Dietitian Recommend advanced diet as tolerated to regular diet. Recommendations/ Recommend nick BID to promote wound healing and 120ml Changes ensure plus high protein TID with medpass, as diet is advanced. Will monitor weight trends. Reviewed and approved by Brianna Haddad, YARI, GENO. Lab / Micro Data 11/11/24 03:45 11/11/24 03:45 Labs: Laboratory Results - last 24 hr 11/10/24 13:35: Fluid Source Cancelled, Fluid Color Cancelled, Fluid Appearance Cancelled, Fluid WBC Cancelled, Fluid RBC Cancelled, Fluid Tot Cell Count Cancelled, Fld Polynuclear WBCs # Cancelled, Fld Polynuclear WBCs % Cancelled, Fluid Mononuclear WBCs Cancelled, Fld Mononuclear WBCs % Cancelled, Fluid Neutrophils Cancelled, Fluid Lymphocytes Cancelled, Fluid Monocytes Cancelled, Fluid Plasma Cells Cancelled, Fluid Macrophages Cancelled, Fld Mesothelial Cells Cancelled, Fluid Other Cells Cancelled, Fl Pathologist Comment Cancelled, Fluid Comment 2 Cancelled, Synovial Source RIGHT KNEE, Synovial Color RED, Synovial Appearance VISCOUS, Synovial WBC 58.8000 H, Synovial RBC 0.120 H, Synovial Tot Cell Ct 59.3300 H, Synov Polynuclear WBCs 5.423, Synov Mononuclear WBCs 0.457, S ynovial Neutrophils 91 H, Synovial Lymphocytes 2, Synovial Monocytes 7, Synovial Polynuclear % 92.2, Synovial Mononuclear % 7.8, Synovial Path Comment May follow 11/10/24 16:05: APTT 64.9 H 11/10/24 22:15: APTT 68.5 H 11/11/24 03:45: WBC 6.9, RBC 3.71 L, Hgb 10.8 L, Hct 34.1 L, MCV 91.9, MCH 29.1, MCHC 31.7 L, RDW Std Deviation 47.0 H, RDW Coeff of Marielos 13.8, Plt Count 162, MPV 10.0, Immature Gran % (Auto) 0.400, Neut % (Auto) 77.5 H, Lymph % (Auto) 9.2 L, [place] % (Auto) 7.1, Eos % (Auto) 5.5 H, Baso % (Auto) 0.3, Absolute Neuts (auto) 5.3, Absolute Lymphs (auto) 0.63 L, Nucleated RBC % 0, APTT 75.2 H, Sodium 137, Potassium 3.6, Chloride 109 H, Carbon Dioxide 22.0, Anion Gap 6, BUN 15, C reatinine 0.48 L, Estim Creat Clear Calc 67.83, Est GFR (MDRD) Af Amer 165, Est GFR (MDRD) Non-Af 137, BUN/Creatinine Ratio 31.6 H, Glucose 126 H, Calcium 8.4 L , Phosphorus 2.8, Magnesium 2.0 11/11/24 08:52: Vancomycin Trough 10.3 Micro: Microbiology 11/10/24 00:15 Wound - Knee Gram Stain - Final 11/10/24 00:15 Wound - Knee Skin and Soft Tissue MRSA/MSSA (PCR - Final 11/09/24 20:14 Urine, Clean Catch Urine Culture - Preliminary Culture exhibits no growth. 11/09/24 19:20 Mucosa - Nose SARS-CoV-2, Influenza & RSV (PCR) - Final Radiography Diagnostic Testing: Radiology Impression Venous Doppler Study 11/09/24 22:09 Interpretation Summary Deep veins of the right lower extremity are patent and compressible segmentally. There is no evidence of right lower extremity deep vein thrombosis. The right great saphenous vein appears patent and compressible segmentally. Ordering Physician: Shadia Nance Referring Physician: Damian Craig Performed By: oTmer Vasquez, RVT Physical Exam Narrative VAC removed. Right knee wound examined. There is no exposed bone or prosthetic. No fluid draining or purulence. Nylon suture removed. Cardio Cardio Narrative: Tachycardic with irregularly irregular rate Extremity Extremity Narrative: SCD on and activated on the contralateral lower extremity No significant lower extremity swelling. Peripheral Pulses: Yes pulses 2+ throughout Assessment & Plan Assessment/Plan (1) Infected prosthetic knee joint: PLAN: Plan I discussed with the patient extensively risk benefits and alternatives to continued VAC therapy. I discussed with orthopedic surgery team, Dr. Velásquez. There is still soft tissue coverage that could granulate with VAC therapy over the knee, however, if another surgery is needed, medial gastrocnemius would definitely be indicated. OK for continued anticoagulation from plastics standpoint. Placing VAC back over wound today for TIW VAC changes. Charges/Coding Multi Select Codes Visit Charges Visit Charges: 45415 Subs Hosp L2
[2024-11-11] MEDS: Vancomycin HCl 1,500 MG in 0.9% Normal Saline (500mL Bag) 500 ML 250 MG IV ×2 (10:10→23:44)
--- NOTE | 2024-11-11 12:37 | PCM.PN.ID ---
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 Taken to OR by Dr. Velásquez 10/13/24 for I&D and poly exchange. Discharged with picc and 6 weeks iv ceftriaxone, planned stop date 11/24/24. Now with new wound infection, aspiration showed increased neutrophils. OR planned for today. Bcx and wound cx pending. Cont empiric vanc/cefepime. Will follow
[2024-11-11 13:42] LABS: Pathologist Comment Reviewed
[2024-11-11] MEDS: Sodium Hypochlorite 473 ML, Sodium Chloride Irrig Solution 473 ML IRRIGATION (14:12)
--- NOTE | 2024-11-11 17:13 | PCM.PN.ORT ---
Subjective Subjective Patient is doing well. Patient is been stabilized overnight. She is comfortable. There is minimal pain with range of motion of the knee. She reports no significant change in symptoms in her knee over the last 24 hours. Her knee symptoms have been stable since postoperative period early. There was no change in symptoms associated with this most recent physical illness. Objective Data Objective Data Vital Signs: Vital Signs Temp Pulse Resp BP Pulse Ox O2 Del Method O2 Flow Rate 97.8 F 115 H 16 105/67 96 Room Air 2 11/11/24 14:16 11/11/24 14:16 11/11/24 14:16 11/11/24 14:16 11/11/24 14:16 11/11/24 14:16 11/11/24 00:58 Oxygen Flow Rate (L/min) 2 Oxygen Delivery Method Room Air Weight: 200 lb 2.876 oz Body Mass Index (BMI) 35.4 Intake & Output: Intake and Output for Last 24 Hours 11/09/24 11/10/24 11/11/24 23:59 23:59 23:59 Intake Total 3140 / 3140 3095.43 / 3095.43 1016.5 / 1016.5 Balance 3140 / 3140 3095.43 / 3095.43 1016.5 / 1016.5 Medical Nutrition Assessment Dietitian: Malnutrition Criteria Met Start: 11/10/24 11:47 Freq: Status: Active Protocol: Document 11/10/24 16:02 SB (Rec: 11/10/24 16:02 SB [id number]) Nutrition Malnutrition Evidence of Yes Malnutrition Exists Malnutrition (severe Acute Illness/Injury ): Evidenced By Suboptimal Energy Intake (Severe),Weight Loss (Severe) Intake Problem Increased Nutrient Needs (specify) Etiology protein related to wound healing Signs/Symptoms as evidenced by open surgical wound on R knee Status Active Problem Clinical Problem Acute Disease or Injury Related Malnutrition Etiology severe related to inadequate oral intake and recent illnesses Signs/Symptoms as evidenced by PO meeting <75% of estimated nutrition needs and 6% unintentional weight loss x 1 month. Status Active Problem Recommendation Dietitian Recommend advanced diet as tolerated to regular diet. Recommendations/ Recommend nick BID to promote wound healing and 120ml Changes ensure plus high protein TID with medpass, as diet is advanced. Will monitor weight trends. Reviewed and approved by Brianna Haddad RDN, GENO. Lab / Micro Data Attestation: I reviewed the patient's lab results. 11/11/24 03:45 11/11/24 03:45 Labs: Laboratory Results - last 24 hr 11/10/24 13:35: Synovial Path Comment Reviewed 11/10/24 22:15: APTT 68.5 H 11/11/24 03:45: WBC 6.9, RBC 3.71 L, Hgb 10.8 L, Hct 34.1 L, MCV 91.9, MCH 29.1, MCHC 31.7 L, RDW Std Deviation 47.0 H, RDW Coeff of Marielos 13.8, Plt Count 162, MPV 10.0, Immature Gran % (Auto) 0.400, Neut % (Auto) 77.5 H, Lymph % (Auto) 9.2 L, [place] % (Auto) 7.1, Eos % (Auto) 5.5 H, Baso % (Auto) 0.3, Absolute Neuts (auto) 5.3, Absolute Lymphs (auto) 0.63 L, Nucleated RBC % 0, APTT 75.2 H, Sodium 137, Potassium 3.6, Chloride 109 H, Carbon Dioxide 22.0, Anion Gap 6, BUN 15, Creatinine 0.48 L, Estim Creat Clear Calc 67.83, Est GFR (MDRD) Af Amer 165, Est GFR (MDRD) Non-Af 137, BUN/Creatinine Ratio 31.6 H, Glucose 126 H, Calcium 8.4 L, Phosphorus 2.8, Magnesium 2.0 11/11/24 08:52: Vancomycin Trough 10.3 Micro: Microbiology 11/10/24 13:35 Fluid - Synovial (joint) Gram Stain - Final 11/10/24 13:35 Fluid - Synovial (joint) Body Fluid Culture - Preliminary No growth-Final to follow 11/10/24 00:15 Wound - Knee Gram Stain - Final 11/10/24 00:15 Wound - Knee Wound Culture - Preliminary GNR Poss Pseudomonas sp 11/10/24 00:15 Wound - Knee Skin and Soft Tissue MRSA/MSSA (PCR - Final 11/09/24 20:14 Urine, Clean Catch Urine Culture - Preliminary Culture exhibits no growth. 11/09/24 19:20 Mucosa - Nose SARS-CoV-2, Influenza & RSV (PCR) - Final Aspiration and culture results were reviewed. Patient does have an increased white blood cell count and the aspiration as well as 91% neutrophils however, cultures are negative. Patient recently had a periprosthetic joint infection with recent surgical intervention with likely acute inflammation associated with this. Based on current data and clinical picture we are considering this information as well as clinical picture. Cultures show no growth Radiography Diagnostic Testing: Radiology Impression Venous Doppler Study 11/09/24 22:09 Interpretation Summary Deep veins of the right lower extremity are patent and compressible segmentally. There is no evidence of right lower extremity deep vein thrombosis. The right great saphenous vein appears patent and compressible segmentally. Ordering Physician: Shadia Nance Referring Physician: Damian Craig Performed By: Tomer Vasquez RVT Physical Exam Narrative Right lower extremity: Wound VAC is in place. No evidence of acute erythema or increased effusion of the knee. Patient is able to go range of motion 0 to 95 degrees without any appreciable pain. Const alert, oriented x3 and no apparent distress Assessment & Plan Assessment/Plan (1) Infected prosthetic knee joint: PLAN: Patient presents a significantly complicated clinical picture. She had irrigation debridement with polyethylene exchange of a right knee periprosthetic strep infection roughly 4 weeks ago. Subsequently at her 2-week postoperative visit she had some breakdown of the distal wound. At that time we enrolled the consultation of plastic surgery to help with the distal wound breakdown for the potential need for a medial gastroc flap and potential soft tissue coverage should the wound continue to breakdown. Ultimately patient has wanted to avoid further surgical intervention and wound VAC treatment has commenced as agreed upon with the patient. She did show up with septic like symptoms in the emergency department however so far the blood cultures have been negative and the knee cultures are negative. Patient was under the care of IV antibiotics for her group G strep. She has continued inflammation in the knee but negative cultures at this time. Ultimately, further surgery on her knee will likely result in further soft tissue destruction around the anterior medial knee and need for soft tissue coverage. After thorough discussion of the clinical picture with the patient as well as the lab results as well as discussions with plastic surgery and the wound service at this time we have elected to proceed with a more cautious approach. We are going to watch the cultures over the weekend and help us determine whether immediate surgery is required. Patient's clinical picture is continuing to improve with significant improvement in her overall knee pain and range of motion and swelling and no return of redness of the knee since surgery. The wound itself has been debrided of necrotic tissue and does have some granulation at the base. There is no active communication with the joint. There is no fluid in today's canister after placement of the wound VAC this morning. Without direct medication to the joint and with the patient being under consistent antibiotic treatment since the time of surgery I am not inclined to proceed with surgical intervention without a positive culture on the knee. All the patient is currently under the treatment for periprosthetic joint infection, at this time we wait for the results of the culture prior to making any definitive surgical decisions. Please call orthopedics for any further questions or concerns. FATOUMATA [facility] Office:
[2024-11-11] MEDS: Heparin Injection (Vial) 5,000 UNIT/ML VIAL 5000 UNIT SC (23:46)
[2024-11-12] VITALS (7 sets, daily range): BP systolic 100–110; BP diastolic 54–73; PULSE 99–111; RESP 16–20; TEMP 36.6–36.9; O2SAT 93–95; BMI 35.8
[2024-11-12 06:05] LABS: Absolute Lymphocyte Count 0.73 X10^3/uL (0.83-4.51); Absolute Neutrophil Count 3.2 X10^3/uL (2.0-7.7); Basophil# 0.01 X10^3/uL; Basophil% 0.2 % (0-1); Eosinophil# 0.28 X10^3/uL; Hematocrit 31.8 % (37-47); Hemoglobin 9.8 g/dL (12.0-15.0); Lymphocyte # 0.73 X10^3/ul (0.83-4.51); Lymphocyte % 15.6 % (19-41); Mean Corp Hgb Conc 30.8 g/dL (32-36); Mean Corpuscular Hgb 28.7 pg (27.0-32.0); Monocyte# 0.44 X10^3/uL; Monocyte% 9.4 % (0-10); NRBC Flagged by Analyzer 0 % (0-5); Neutrophil # 3.19 X10^3/uL (2.7-7.7); Neutrophil % 68.4 % (47-70); Platelet Count 155 K/mm3 (150-450); RBC Distribution Width CV 13.9 % (11.6-14.6); Red Blood Count 3.42 M/mm3 (4.2-5.4); White Blood Count 4.7 K/mm3 (4.4-11.0)
[2024-11-12] MEDS: Acetaminophen 500 MG Tablet 1000 MG PO ×3 (06:09→20:49)
[2024-11-12] MEDS: dilTIAZem 60 MG Tablet PO ×3 (06:09→18:41)
[2024-11-12] MEDS: Cefepime HCl 2 GM in 0.9% Normal Saline (100mL MB+) 100 ML IV ×3 (06:11→20:48)
[2024-11-12 07:01] LABS: Anion Gap 6 (5-15); BUN 12 mg/dL (7-18); BUN/Creat Ratio 26.4 RATIO (10-20); Calcium,Total 8.2 mg/dL (8.5-10.1); Chloride 114 mmol/L (98-107); Creatinine, Serum 0.46 mg/dL (0.55-1.02); EST Glomerular Filtration Rate 143 mL/min (>60); Est Glom Filt Rate - Afr Amer 174 mL/min (>60); Glucose 96 mg/dL (74-106); Potassium 3.7 mmol/L (3.5-5.1); Sodium Level 144 mmol/L (136-145)
--- NOTE | 2024-11-12 07:12 | PN_ITS ---
Subjective Subjective Doing well. No issues with the VAC overnight. Pain controlled. Objective Data Objective Data Vital Signs: Vital Signs Temp Pulse Resp BP Pulse Ox O2 Del Method O2 Flow Rate 98.1 F 106 H 16 100/62 94 Room Air 2 11/12/24 04:45 11/12/24 04:45 11/12/24 04:45 11/12/24 04:45 11/12/24 04:45 11/12/24 04:49 11/11/24 00:58 Oxygen Flow Rate (L/min) 2 Oxygen Delivery Method Room Air Weight: 202 lb 6.15 oz Body Mass Index (BMI) 35.8 Intake & Output: Intake and Output for Last 24 Hours 11/10/24 11/11/24 11/12/24 23:59 23:59 23:59 Intake Total 3095.43 / 3095.43 1296.5 / 1296.5 730 / 730 Balance 3095.43 / 3095.43 1296.5 / 1296.5 730 / 730 Medical Nutrition Assessment Dietitian: Malnutrition Criteria Met Start: 11/10/24 11:47 Freq: Status: Active Protocol: Document 11/10/24 16:02 SB (Rec: 11/10/24 16:02 SB [id number]) Nutrition Malnutrition Evidence of Yes Malnutrition Exists Malnutrition (severe Acute Illness/Injury ): Evidenced By Suboptimal Energy Intake (Severe),Weight Loss (Severe) Intake Problem Increased Nutrient Needs (specify) Etiology protein related to wound healing Signs/Symptoms as evidenced by open surgical wound on R knee Status Active Problem Clinical Problem Acute Disease or Injury Related Malnutrition Etiology severe related to inadequate oral intake and recent illnesses Signs/Symptoms as evidenced by PO meeting <75% of estimated nutrition needs and 6% unintentional weight loss x 1 month. Status Active Problem Recommendation Dietitian Recommend advanced diet as tolerated to regular diet. Recommendations/ Recommend nick BID to promote wound healing and 120ml Changes ensure plus high protein TID with medpass, as diet is advanced. Will monitor weight trends. Reviewed and approved by Brianna Haddad RDN, GENO. Lab / Micro Data 11/12/24 04:50 11/12/24 04:50 Labs: Laboratory Results - last 24 hr 11/10/24 13:35: Synovial Path Comment Reviewed 11/11/24 08:52: Vancomycin Trough 10.3 11/12/24 04:50: WBC 4.7, RBC 3.42 L, Hgb 9.8 L, Hct 31.8 L, MCV 93.0, MCH 28.7, MCHC 30.8 L, RDW Std Deviation 48.0 H, RDW Coeff of Marielos 13.9, Plt Count 155, MPV 10.0, Immature Gran % (Auto) 0.400, Neut % (Auto) 68.4, Lymph % (Auto) 15.6 L, [place] % (Auto) 9.4, Eos % (Auto) 6.0 H, Baso % (Auto) 0.2, Absolute Neuts (auto) 3.2, Absolute Lymphs (auto) 0.73 L, Nucleated RBC % 0, Sodium 144, Potassium 3.7, Chloride 114 H, Carbon Dioxide 24.0, Anion Gap 6, BUN 12, Creatinine 0.46 L , Estim Creat Clear Calc 68.40, Est GFR (MDRD) Af Amer 174, Est GFR (MDRD) Non- Af 143, BUN/Creatinine Ratio 26.4 H, Glucose 96, Calcium 8.2 L Micro: Microbiology 11/09/24 20:14 Urine, Clean Catch Urine Culture - Final Culture exhibits no growth. 11/09/24 19:05 Blood Culture (Wb) - Left Wrist Blood Culture - Preliminary No growth in 48 hours. 11/09/24 18:54 Blood Culture (Wb) - Pic Blood Culture - Preliminary No growth in 48 hours. 11/10/24 13:35 Fluid - Synovial (joint) Gram Stain - Final 11/10/24 13:35 Fluid - Synovial (joint) Body Fluid Culture - Preliminary No growth-Final to follow 11/10/24 00:15 Wound - Knee Gram Stain - Final 11/10/24 00:15 Wound - Knee Wound Culture - Preliminary GNR Poss Pseudomonas sp 11/10/24 00:15 Wound - Knee Skin and Soft Tissue MRSA/MSSA (PCR - Final 11/09/24 19:20 Mucosa - Nose SARS-CoV-2, Influenza & RSV (PCR) - Final Physical Exam Narrative Right lower extremity: Wound VAC is in place. Irrigating mode with 14 cc of Dakins solution every 4 hours. 2+DP and PT pulses Const alert, oriented x3 and no apparent distress Resp Resp Narrative: 1750 on IS this morning Assessment & Plan Assessment/Plan (1) Infected prosthetic knee joint: PLAN: Plan Continue irrigating wound VAC F/u cultures Plan for VAC change and wound assessment on 14 Nov 2024 Discussed with PCU staff making sure LLE has SCDs Agree with Heparin ggt in case patient would be in need of surgical intervention/flap this week. Charges/Coding Visit Charges Inpatient E&M: 50593 Subs Hosp L1
[2024-11-12] MEDS: QUEtiapine 25 MG Tablet PO (09:55)
[2024-11-12] MEDS: Ascorbic Acid 500 MG Tablet PO (09:55)
[2024-11-12] MEDS: Heparin Injection (Vial) 5,000 UNIT/ML VIAL 5000 UNIT SC (09:55)
[2024-11-12] MEDS: Vancomycin HCl 1,500 MG in 0.9% Normal Saline (500mL Bag) 500 ML 250 MG IV ×2 (09:56→23:05)
--- NOTE | 2024-11-12 10:01 | PN.HOSP_ITS ---
Reason for Visit Reason for Visit: Diagnoses Pyogenic arthritis, unspecified (11/09/24) Infection and inflammatory reaction due to other internal joint prosthesis, initial encounter (11/09/24) Presence of unspecified artificial knee joint (11/09/24) Subjective Subjective Patient cultures from the joint aspirate positive for Pseudomonas. Patient remains on cefepime and vancomycin Objective Data Objective Data Vital Signs: Vital Signs Temp Pulse Resp BP Pulse Ox O2 Del Method O2 Flow Rate 98.1 F 106 H 16 100/62 94 Room Air 2 11/12/24 04:45 11/12/24 04:45 11/12/24 04:45 11/12/24 04:45 11/12/24 04:45 11/12/24 04:49 11/11/24 00:58 Oxygen Flow Rate (L/min) 2 Oxygen Delivery Method Room Air Weight: 91.8 kg Body Mass Index (BMI) 35.8 Intake & Output: Intake and Output for Last 24 Hours 11/10/24 11/11/24 11/12/24 23:59 23:59 23:59 Intake Total 3095.43 / 3095.43 1296.5 / 1296.5 730 / 730 Balance 3095.43 / 3095.43 1296.5 / 1296.5 730 / 730 Medical Nutrition Assessment Dietitian: Malnutrition Criteria Met Start: 11/10/24 11:47 Freq: Status: Active Protocol: Document 11/10/24 16:02 SB (Rec: 11/10/24 16:02 SB [id number]) Nutrition Malnutrition Evidence of Yes Malnutrition Exists Malnutrition (severe Acute Illness/Injury ): Evidenced By Suboptimal Energy Intake (Severe),Weight Loss (Severe) Intake Problem Increased Nutrient Needs (specify) Etiology protein related to wound healing Signs/Symptoms as evidenced by open surgical wound on R knee Status Active Problem Clinical Problem Acute Disease or Injury Related Malnutrition Etiology severe related to inadequate oral intake and recent illnesses Signs/Symptoms as evidenced by PO meeting <75% of estimated nutrition needs and 6% unintentional weight loss x 1 month. Status Active Problem Recommendation Dietitian Recommend advanced diet as tolerated to regular diet. Recommendations/ Recommend nick BID to promote wound healing and 120ml Changes ensure plus high protein TID with medpass, as diet is advanced. Will monitor weight trends. Reviewed and approved by Brianna Odenkirk, RDN, LD. Lab / Micro Data 11/12/24 04:50 11/12/24 04:50 Labs: Laboratory Results - last 24 hr 11/10/24 13:35: Synovial Path Comment Reviewed 11/12/24 04:50: WBC 4.7, RBC 3.42 L, Hgb 9.8 L, Hct 31.8 L, MCV 93.0, MCH 28.7, MCHC 30.8 L, RDW Std Deviation 48.0 H, RDW Coeff of Marielos 13.9, Plt Count 155, MPV 10.0, Immature Gran % (Auto) 0.400, Neut % (Auto) 68.4, Lymph % (Auto) 15.6 L, [place] % (Auto) 9.4, Eos % (Auto) 6.0 H, Baso % (Auto) 0.2, Absolute Neuts (auto) 3.2, Absolute Lymphs (auto) 0.73 L, Nucleated RBC % 0, Sodium 144, Potassium 3.7, Chloride 114 H, Carbon Dioxide 24.0, Anion Gap 6, BUN 12, Creatinine 0.46 L , Estim Creat Clear Calc 68.40, Est GFR (MDRD) Af Amer 174, Est GFR (MDRD) Non- Af 143, BUN/Creatinine Ratio 26.4 H, Glucose 96, Calcium 8.2 L Micro: Microbiology 11/10/24 13:35 Fluid - Synovial (joint) Gram Stain - Final 11/10/24 13:35 Fluid - Synovial (joint) Body Fluid Culture - Preliminary No growth-Final to follow 11/10/24 13:35 Fluid - Synovial (joint) Anaerobic Culture - Preliminary No growth in 48 hours. 11/09/24 20:14 Urine, Clean Catch Urine Culture - Final Culture exhibits no growth. 11/09/24 19:05 Blood Culture (Wb) - Left Wrist Blood Culture - Preliminary No growth in 48 hours. 11/09/24 18:54 Blood Culture (Wb) - Pic Blood Culture - Preliminary No growth in 48 hours. 11/10/24 00:15 Wound - Knee Gram Stain - Final 11/10/24 00:15 Wound - Knee Wound Culture - Preliminary GNR Poss Pseudomonas sp 11/10/24 00:15 Wound - Knee Skin and Soft Tissue MRSA/MSSA (PCR - Final 11/09/24 19:20 Mucosa - Nose SARS-CoV-2, Influenza & RSV (PCR) - Final Physical Exam Narrative GENERAL: cooperative HEENT: Atraumatic; normocephalic EYES; Anicteric, Normal Conjunctiva NECK; supple, normal thyroid, RESPIRATORY: Diminished to auscultation CARDIOVASCULAR: Regular S1 S2, GI: soft, normoactive bowel sounds, : No Renal angle tenderness; EXTREMITIES: Right knee in surgical dressing MUSCULOSKELETAL: no muscle wasting NEURO: Awake; no lateralizing signs. SKIN: No Rash PSYCH; Flat affect Assessment & Plan Assessment/Plan (1) Septic joint: PLAN: Plan Patient is a 74-year-old female with past medical history significant for recent acute pyogenic right total knee infection for which patient underwent irrigation and debridement with complete synovectomy and polyethylene exchange of the right knee on 10/13/[address] Velásquez who presented to the emergency department with nausea vomiting as well as chills 1. Sepsis ? Secondary to suspected septic arthritis. Patient started on antibiotics per protocol after cultures have been drawn with IV fluid resuscitation. Patient admitted to the intensive care unit consult placed to plastic surgery patient has been seen by Dr. Chisholm plan is for patient to undergo I&D ? 11/11/2024Patient underwent bedside aspiration of the right knee by Dr. Velásquez. Joint aspirate sent for Gram stain and culture. Patient cell counts had a predominance of neutrophils suggestive of septic joint. Patient was also seen in consultation by ID antibiotics subsequently adjusted ? 11/12/2023 patient cultures from the joint aspirate positive for Pseudomonas. Patient remains on cefepime and vancomycin. Patient underwent wound VAC placement the day prior plan is for wound VAC change and wound assessment on 11/14/2024 2. Hypokalemia -corrected for protocol 3. Mild thrombocytopenia ? Monitor 4. Anemia ? Secondary to chronic disorder monitoring H&H and transfuse if patient becomes symptomatic or hemoglobin falls below 7 5. Acute transaminitis ? Suspected to be secondary to sepsis monitor with daily LFTs 6. Acute renal insufficiency ruled out 7. Paroxysmal atrial fibrillation ? Patient rate control remains labile, patient is on Cardizem which she had apparently not received did modify dose. Patient is on apixaban held in anticipation of patient's surgical procedure 8. Class II obesity with BMI of 35.3 ? Weight loss advised 9. severe protein calorie malnutrition ? Evidenced By Suboptimal Energy Intake (Severe),Weight Loss (Severe). Consult placed to dietitian 10. DVT prophylaxis ? Patient is on apixaban which is currently being held for her anticipated I&D ? 11/12/2024; resumed apixaban Time spent in the patient's overall evaluation,decision-making process, review of diagnostic data, adjustment of management, discussion with other providers, nursing nursing and ancillary staff involved in patient's care documentation, 40 minutes Charges/Coding Visit Charges Inpatient E&M: 21129 Subs Hosp L2
[2024-11-12] MEDS: Ondansetron 4 MG/2 ML Vial IV (10:28)
[2024-11-12] MEDS: Mag Hydrox/Al Hydrox/Simeth 30 ML UDC PO (12:46)
[2024-11-12] MEDS: APIXABAN 5 MG TABLET PO (20:48)
[2024-11-12 22:01] LABS: Vancomycin, Trough Level 17.9 ug/mL (5.0-15.0)
[2024-11-13] VITALS (10 sets, daily range): BP systolic 101–120; BP diastolic 50–64; PULSE 97–118; RESP 16–20; TEMP 36.5–36.8; O2SAT 92–95
--- NOTE | 2024-11-13 01:45 | PCM.RX.CS ---
Consult Antibiotic Management Pharmacy has been consulted to manage selected antibiotic: Vancomycin Type of Intervention Type of Consult: Follow-up Labs Labs: Sodium 144 mmol/L (136-145) 11/12/24 04:50 Potassium 3.7 mmol/L (3.5-5.1) 11/12/24 04:50 Chloride 114 mmol/L (98-107) H 11/12/24 04:50 Carbon Dioxide 24.0 mmol/L (21.0-32.0) 11/12/24 04:50 Anion Gap 6 (5-15) 11/12/24 04:50 BUN 12 mg/dL (7-18) 11/12/24 04:50 Creatinine 0.46 mg/dL (0.55-1.02) L 11/12/24 04:50 Est GFR (MDRD) Af Amer 174 mL/min (>60) 11/12/24 04:50 Est GFR (MDRD) Non-Af 143 mL/min (>60) 11/12/24 04:50 BUN/Creatinine Ratio 26.4 RATIO (10-20) H 11/12/24 04:50 Glucose 96 mg/dL (74-106) 11/12/24 04:50 Vancomycin Trough 17.9 ug/mL (5.0-15.0) H 11/12/24 21:28 Microbiology Microbiology: Microbiology 11/10/24 00:15 Wound - Knee Gram Stain - Final 11/10/24 00:15 Wound - Knee Wound Culture - Final Pseudomonas aeruginosa Coag Negative Staph 11/10/24 00:15 Wound - Knee Skin and Soft Tissue MRSA/MSSA (PCR - Final 11/10/24 13:35 Fluid - Synovial (joint) Gram Stain - Final 11/10/24 13:35 Fluid - Synovial (joint) Body Fluid Culture - Preliminary No growth-Final to follow 11/10/24 13:35 Fluid - Synovial (joint) Anaerobic Culture - Preliminary No growth in 48 hours. 11/09/24 20:14 Urine, Clean Catch Urine Culture - Final Culture exhibits no growth. 11/09/24 19:05 Blood Culture (Wb) - Left Wrist Blood Culture - Preliminary No growth in 48 hours. 11/09/24 18:54 Blood Culture (Wb) - Pic Blood Culture - Preliminary No growth in 48 hours. 11/09/24 19:20 Mucosa - Nose SARS-CoV-2, Influenza & RSV (PCR) - Final Goal Trough Goal Trough: 15-20 mcg/mL Pharmacy Plan for Drug Dosing Pharmacy Plan for Drug Dosing: Pharmacy Service will continue to monitor and adjust dosing as required. TROUGH 17.9 @ 11.5 HOURS. NO CHANGES, FOLLOW UP TROUGH IN 2 DAYS Follow-Up Labs Follow-Up Labs: Trough: Vancomycin Date/Time Labs Ordered Labs to be done on [date and time ordered]: 11/14 @ 1996
[2024-11-13] MEDS: dilTIAZem 60 MG Tablet PO ×3 (04:54→22:44)
[2024-11-13 04:58] LABS: Absolute Lymphocyte Count 0.63 X10^3/uL (0.83-4.51); Absolute Neutrophil Count 3.8 X10^3/uL (2.0-7.7); Basophil# 0.02 X10^3/uL; Basophil% 0.4 % (0-1); Eosinophil# 0.27 X10^3/uL; Eosinophils% 5.2 % (0-5); Hemoglobin 9.9 g/dL (12.0-15.0); Lymphocyte # 0.63 X10^3/ul (0.83-4.51); Lymphocyte % 12.1 % (19-41); Mean Corpuscular Hgb 28.9 pg (27.0-32.0); Mean Corpuscular Volume 96.2 fL (81-99); Monocyte# 0.45 X10^3/uL; Monocyte% 8.7 % (0-10); NRBC Flagged by Analyzer 0 % (0-5); Neutrophil # 3.78 X10^3/uL (2.7-7.7); Neutrophil % 72.8 % (47-70); Platelet Count 144 K/mm3 (150-450); RBC Distribution Width CV 14.1 % (11.6-14.6); RBC Distribution Width SD 49.5 fl (35.1-43.9); Red Blood Count 3.43 M/mm3 (4.2-5.4); White Blood Count 5.2 K/mm3 (4.4-11.0)
[2024-11-13 06:14] LABS: Anion Gap 8 (5-15); BUN 9 mg/dL (7-18); BUN/Creat Ratio 20.5 RATIO (10-20); Calcium,Total 8.2 mg/dL (8.5-10.1); Chloride 118 mmol/L (98-107); Creatinine, Serum 0.44 mg/dL (0.55-1.02); EST Glomerular Filtration Rate 149 mL/min (>60); Est Glom Filt Rate - Afr Amer 180 mL/min (>60); Glucose 104 mg/dL (74-106); Potassium 3.8 mmol/L (3.5-5.1); Sodium Level 146 mmol/L (136-145)
[2024-11-13] MEDS: Cefepime HCl 2 GM in 0.9% Normal Saline (100mL MB+) 100 ML IV ×3 (06:29→20:40)
[2024-11-13] MEDS: Albuterol 2.5 MG/3 ML VIAL.NEB. INHALATION (06:58)
--- NOTE | 2024-11-13 07:37 | PCM.PN.HOSP ---
Reason for Visit Reason for Visit: Diagnoses Pyogenic arthritis, unspecified (11/09/24) Infection and inflammatory reaction due to other internal joint prosthesis, initial encounter (11/09/24) Presence of unspecified artificial knee joint (11/09/24) Subjective Subjective Patient seen complains of feeling tired and experiencing shortness of breath. Currently saturating 94% on 2 L of oxygen. Ordered checks x-ray, COVID and viral respiratory panel Objective Data Objective Data Vital Signs: Vital Signs Temp Pulse Resp BP Pulse Ox O2 Del Method O2 Flow Rate 98 F 114 H 20 H 120/54 L 94 Room Air 2 11/13/24 04:50 11/13/24 04:50 11/13/24 04:50 11/13/24 04:50 11/13/24 04:50 11/13/24 04:50 11/11/24 00:58 Oxygen Flow Rate (L/min) 2 Oxygen Delivery Method Room Air Weight: 91.8 kg Body Mass Index (BMI) 35.8 Intake & Output: Intake and Output for Last 24 Hours 11/11/24 11/12/24 11/13/24 23:59 23:59 23:59 Intake Total 1296.5 / 1296.5 1460 / 1700 710.83 / 710.83 Balance 1296.5 / 1296.5 1460 / 1700 710.83 / 710.83 Medical Nutrition Assessment Dietitian: Malnutrition Criteria Met Start: 11/10/24 11:47 Freq: Status: Active Protocol: Document 11/10/24 16:02 SB (Rec: 11/10/24 16:02 SB [id number]) Nutrition Malnutrition Evidence of Yes Malnutrition Exists Malnutrition (severe Acute Illness/Injury ): Evidenced By Suboptimal Energy Intake (Severe),Weight Loss (Severe) Intake Problem Increased Nutrient Needs (specify) Etiology protein related to wound healing Signs/Symptoms as evidenced by open surgical wound on R knee Status Active Problem Clinical Problem Acute Disease or Injury Related Malnutrition Etiology severe related to inadequate oral intake and recent illnesses Signs/Symptoms as evidenced by PO meeting <75% of estimated nutrition needs and 6% unintentional weight loss x 1 month. Status Active Problem Recommendation Dietitian Recommend advanced diet as tolerated to regular diet. Recommendations/ Recommend nick BID to promote wound healing and 120ml Changes ensure plus high protein TID with medpass, as diet is advanced. Will monitor weight trends. Reviewed and approved by Brianna Haddad RDN, G[facility]. Lab / Micro Data 11/13/24 04:36 11/13/24 04:36 Labs: Laboratory Results - last 24 hr 11/12/24 21:28: Vancomycin Trough 17.9 H 11/13/24 04:36: WBC 5.2, RBC 3.43 L, Hgb 9.9 L, Hct 33.0 L, MCV 96.2, MCH 28.9, MCHC 30.0 L, RDW Std Deviation 49.5 H, RDW Coeff of Marielos 14.1, Plt Count 144 L, MPV 10.0, Immature Gran % (Auto) 0.800, Neut % (Auto) 72.8 H, Lymph % (Auto) 12.1 L, [place] % (Auto) 8.7, Eos % (Auto) 5.2 H, Baso % (Auto) 0.4, Absolute Neuts (auto) 3.8, Absolute Lymphs (auto) 0.63 L, Nucleated RBC % 0, Sodium 146 H, Potassium 3.8, Chloride 118 H, Carbon Dioxide 20.0 L, Anion Gap 8, BUN 9, Creatinine 0.44 L, Estim Creat Clear Calc 68.40, Est GFR (MDRD) Af Amer 180, Est GFR (MDRD) Non-Af 149, BUN/Creatinine Ratio 20.5 H, Glucose 104, Calcium 8.2 L Micro: Microbiology 11/10/24 00:15 Wound - Knee Gram Stain - Final 11/10/24 00:15 Wound - Knee Wound Culture - Final Pseudomonas aeruginosa Coag Negative Staph 11/10/24 00:15 Wound - Knee Skin and Soft Tissue MRSA/MSSA (PCR - Final 11/10/24 13:35 Fluid - Synovial (joint) Gram Stain - Final 11/10/24 13:35 Fluid - Synovial (joint) Body Fluid Culture - Preliminary No growth-Final to follow 11/10/24 13:35 Fluid - Synovial (joint) Anaerobic Culture - Preliminary No growth in 48 hours. 11/09/24 20:14 Urine, Clean Catch Urine Culture - Final Culture exhibits no growth. 11/09/24 19:05 Blood Culture (Wb) - Left Wrist Blood Culture - Preliminary No growth in 48 hours. 11/09/24 18:54 Blood Culture (Wb) - Pic Blood Culture - Preliminary No growth in 48 hours. 11/09/24 19:20 Mucosa - Nose SARS-CoV-2, Influenza & RSV (PCR) - Final Physical Exam Narrative GENERAL: cooperative HEENT: Atraumatic; normocephalic EYES; Anicteric, Normal Conjunctiva NECK; supple, normal thyroid, RESPIRATORY: Diminished to auscultation CARDIOVASCULAR: Regular S1 S2, GI: soft, normoactive bowel sounds, : No Renal angle tenderness; EXTREMITIES: Right knee in surgical dressing MUSCULOSKELETAL: no muscle wasting NEURO: Awake; no lateralizing signs. SKIN: No Rash PSYCH; Flat affect Assessment & Plan Assessment/Plan (1) Septic joint: PLAN: Plan Patient is a 74-year-old female with past medical history significant for recent acute pyogenic right total knee infection for which patient underwent irrigation and debridement with complete synovectomy and polyethylene exchange of the right knee on 10/13/[address] Velásquez who presented to the emergency department with nausea vomiting as well as chills 1. Sepsis ? Secondary to suspected septic arthritis. Patient started on antibiotics per protocol after cultures have been drawn with IV fluid resuscitation. Patient admitted to the intensive care unit consult placed to plastic surgery patient has been seen by Dr. Chisholm plan is for patient to undergo I&D ? 11/11/2024Patient underwent bedside aspiration of the right knee by Dr. Velásquez. Joint aspirate sent for Gram stain and culture. Patient cell counts had a predominance of neutrophils suggestive of septic joint. Patient was also seen in consultation by ID antibiotics subsequently adjusted ? 11/12/2023 patient cultures from the joint aspirate positive for Pseudomonas. Patient remains on cefepime and vancomycin. Patient underwent wound VAC placement the day prior plan is for wound VAC change and wound assessment on 11/14/2024 2. Hypokalemia -corrected for protocol 3. Mild thrombocytopenia ? Monitor 4. Anemia ? Secondary to chronic disorder monitoring H&H and transfuse if patient becomes symptomatic or hemoglobin falls below 7 5. Acute transaminitis ? Suspected to be secondary to sepsis monitor with daily LFTs 6. Acute renal insufficiency ruled out 7. Paroxysmal atrial fibrillation ? Patient rate control remains labile, patient is on Cardizem which she had apparently not received did modify dose. Patient is on apixaban held in anticipation of patient's surgical procedure 8. Class II obesity with BMI of 35.3 ? Weight loss advised 9. severe protein calorie malnutrition ? Evidenced By Suboptimal Energy Intake (Severe),Weight Loss (Severe). Consult placed to dietitian 10. DVT prophylaxis ? Patient is on apixaban which is currently being held for her anticipated I&D ? 11/12/2024; resumed apixaban 11. Acute hypoxia ?Patient seen complains of feeling tired and experiencing shortness of breath. Currently saturating 94% on 2 L of oxygen. Ordered checks x-ray, COVID and viral respiratory panel Time spent in the patient's overall evaluation,decision-making process, review of diagnostic data, adjustment of management, discussion with other providers, nursing nursing and ancillary staff involved in patient's care documentation, 38 minutes Charges/Coding Visit Charges Inpatient E&M: 64957 Subs Hosp L2
--- NOTE | 2024-11-13 09:16 | RAD_ITS ---
PROCEDURE: CHEST 1 VIEW (PORTABLE) REASON FOR EXAM: Short of breath. TECHNIQUE: Frontal view of the chest. COMPARISON: 11/09/2024 FINDINGS: The heart size is normal. New subtle airspace opacities in the left lower lobe with a possible new pleural effusion with interval silhouetting of the left hemidiaphragm. Stable right-sided PICC line. RAD/Chest 1 View (Portable) IMPRESSION: As above. Reading Location: [facility]
[2024-11-13] MEDS: Vancomycin HCl 1,500 MG in 0.9% Normal Saline (500mL Bag) 500 ML 250 MG IV ×2 (10:08→22:41)
[2024-11-13] MEDS: Ondansetron 4 MG/2 ML Vial IV ×2 (10:14→17:40)
[2024-11-13] MEDS: 0.9% Saline Lock 10 ML Syringe IV ×2 (10:14→16:02)
[2024-11-13] MEDS: QUEtiapine 25 MG Tablet PO (10:26)
[2024-11-13] MEDS: APIXABAN 5 MG TABLET PO ×2 (10:26→20:39)
[2024-11-13] MEDS: Ascorbic Acid 500 MG Tablet PO (10:26)
--- NOTE | 2024-11-13 10:42 | PN.SURG_ITS ---
Subjective Subjective Reports same level of pain in the right leg. NAEON. Objective Data Objective Data Vital Signs: Vital Signs Temp Pulse Resp BP Pulse Ox O2 Del Method O2 Flow Rate 98 F 110 H 16 120/54 L 94 Room Air 2 11/13/24 04:50 11/13/24 06:58 11/13/24 06:58 11/13/24 04:50 11/13/24 06:58 11/13/24 10:00 11/13/24 06:58 Oxygen Flow Rate (L/min) 2 Oxygen Delivery Method Room Air Weight: 202 lb 6.15 oz Body Mass Index (BMI) 35.8 Intake & Output: Intake and Output for Last 24 Hours 11/11/24 11/12/24 11/13/24 23:59 23:59 23:59 Intake Total 1296.5 / 1296.5 1460 / 1700 810.83 / 810.83 Balance 1296.5 / 1296.5 1460 / 1700 810.83 / 810.83 Medical Nutrition Assessment Dietitian: Malnutrition Criteria Met Start: 11/10/24 11:47 Freq: Status: Active Protocol: Document 11/10/24 16:02 SB (Rec: 11/10/24 16:02 SB [id number]) Nutrition Malnutrition Evidence of Yes Malnutrition Exists Malnutrition (severe Acute Illness/Injury ): Evidenced By Suboptimal Energy Intake (Severe),Weight Loss (Severe) Intake Problem Increased Nutrient Needs (specify) Etiology protein related to wound healing Signs/Symptoms as evidenced by open surgical wound on R knee Status Active Problem Clinical Problem Acute Disease or Injury Related Malnutrition Etiology severe related to inadequate oral intake and recent illnesses Signs/Symptoms as evidenced by PO meeting <75% of estimated nutrition needs and 6% unintentional weight loss x 1 month. Status Active Problem Recommendation Dietitian Recommend advanced diet as tolerated to regular diet. Recommendations/ Recommend nick BID to promote wound healing and 120ml Changes ensure plus high protein TID with medpass, as diet is advanced. Will monitor weight trends. Reviewed and approved by Brianna Haddad RDN, [facility]. Lab / Micro Data 11/13/24 04:36 11/13/24 04:36 Labs: Laboratory Results - last 24 hr 11/12/24 21:28: Vancomycin Trough 17.9 H 11/13/24 04:36: WBC 5.2, RBC 3.43 L, Hgb 9.9 L, Hct 33.0 L, MCV 96.2, MCH 28.9, MCHC 30.0 L, RDW Std Deviation 49.5 H, RDW Coeff of Marielos 14.1, Plt Count 144 L, MPV 10.0, Immature Gran % (Auto) 0.800, Neut % (Auto) 72.8 H, Lymph % (Auto) 12.1 L, [place] % (Auto) 8.7, Eos % (Auto) 5.2 H, Baso % (Auto) 0.4, Absolute Neuts (auto) 3.8, Absolute Lymphs (auto) 0.63 L, Nucleated RBC % 0, Sodium 146 H, Potassium 3.8, Chloride 118 H, Carbon Dioxide 20.0 L, Anion Gap 8, BUN 9, C [place] 0.44 L, Estim Creat Clear Calc 68.40, Est GFR (MDRD) Af Amer 180, Est GFR (MDRD) Non-Af 149, BUN/Creatinine Ratio 20.5 H, Glucose 104, Calcium 8.2 L Micro: Microbiology 11/10/24 00:15 Wound - Knee Gram Stain - Final 11/10/24 00:15 Wound - Knee Wound Culture - Final Pseudomonas aeruginosa Coag Negative Staph 11/10/24 00:15 Wound - Knee Skin and Soft Tissue MRSA/MSSA (PCR - Final 11/10/24 13:35 Fluid - Synovial (joint) Gram Stain - Final 11/10/24 13:35 Fluid - Synovial (joint) Body Fluid Culture - Preliminary No growth-Final to follow 11/10/24 13:35 Fluid - Synovial (joint) Anaerobic Culture - Preliminary No growth in 48 hours. 11/09/24 20:14 Urine, Clean Catch Urine Culture - Final Culture exhibits no growth. 11/09/24 19:05 Blood Culture (Wb) - Left Wrist Blood Culture - Preliminary No growth in 48 hours. 11/09/24 18:54 Blood Culture (Wb) - Pic Blood Culture - Preliminary No growth in 48 hours. 11/09/24 19:20 Mucosa - Nose SARS-CoV-2, Influenza & RSV (PCR) - Final Radiography Diagnostic Testing: Radiology Impression Chest X-Ray 11/13/24 09:16 IMPRESSION: As above. Reading Location: [facility] Physical Exam Narrative Right lower extremity: Wound VAC is in place. Irrigating mode with 14 cc of Dakins solution every 4 hours. 2+DP and PT pulses Const alert, oriented x3 and no apparent distress Resp Resp Narrative: 1750 on IS this morning Extremity Extremity Narrative: SCD on LLE Assessment & Plan Assessment/Plan (1) Infected prosthetic knee joint: PLAN: Plan Continue irrigating wound VAC F/u cultures Plan for VAC change and wound assessment on Thu, 14 Nov 2024 (Tomorrow). Agree with Heparin ggt in case patient would be in need of surgical intervention/flap this week. Charges/Coding Visit Charges Inpatient E&M: 84364 Subs Hosp L1
[2024-11-13] MEDS: Acetaminophen 500 MG Tablet 1000 MG PO ×2 (13:03→20:40)
[2024-11-13] MEDS: Lactobacillis Acidophilus 1 CAP PO ×2 (13:04→20:40)
[2024-11-13] MEDS: MELATONIN 3 MG TABLET PO (20:40)
[2024-11-14] VITALS (7 sets, daily range): BP systolic 112–126; BP diastolic 57–70; PULSE 102–109; RESP 15–18; TEMP 36.6–36.9; O2SAT 92–96; BMI 36.3
[2024-11-14] MEDS: dilTIAZem 60 MG Tablet PO ×3 (05:17→18:44)
[2024-11-14] MEDS: Acetaminophen 500 MG Tablet 1000 MG PO ×3 (05:17→21:45)
[2024-11-14] MEDS: Cefepime HCl 2 GM in 0.9% Normal Saline (100mL MB+) 100 ML IV ×3 (05:41→21:42)
[2024-11-14 06:11] LABS: Absolute Lymphocyte Count 0.84 X10^3/uL (0.83-4.51); Absolute Neutrophil Count 4.1 X10^3/uL (2.0-7.7); Basophil# 0.04 X10^3/uL; Basophil% 0.7 % (0-1); Eosinophil# 0.28 X10^3/uL; Eosinophils% 4.7 % (0-5); Hemoglobin 10.8 g/dL (12.0-15.0); Lymphocyte # 0.84 X10^3/ul (0.83-4.51); Lymphocyte % 14.1 % (19-41); Mean Corp Hgb Conc 31.8 g/dL (32-36); Mean Corpuscular Hgb 29.7 pg (27.0-32.0); Mean Corpuscular Volume 93.4 fL (81-99); Mean Platelet Vol. 10.1 fl (6.2-12.0); Monocyte# 0.64 X10^3/uL; Monocyte% 10.8 % (0-10); NRBC Flagged by Analyzer 0 % (0-5); Neutrophil # 4.07 X10^3/uL (2.7-7.7); Neutrophil % 68.4 % (47-70); Platelet Count 199 K/mm3 (150-450); RBC Distribution Width CV 14.4 % (11.6-14.6); RBC Distribution Width SD 48.6 fl (35.1-43.9); Red Blood Count 3.64 M/mm3 (4.2-5.4)
[2024-11-14 06:32] LABS: Anion Gap 6 (5-15); BUN 9 mg/dL (7-18); BUN/Creat Ratio 20.8 RATIO (10-20); Calcium,Total 8.6 mg/dL (8.5-10.1); Chloride 115 mmol/L (98-107); Creatinine, Serum 0.43 mg/dL (0.55-1.02); EST Glomerular Filtration Rate 152 mL/min (>60); Est Glom Filt Rate - Afr Amer 184 mL/min (>60); Estimated Creatinine Clearance 68.96 ml/min; Glucose 105 mg/dL (74-106); Magnesium 2.1 mg/dL (1.6-2.6); Phosphorus 3.9 mg/dL (2.5-4.9); Potassium 3.4 mmol/L (3.5-5.1); Sodium Level 143 mmol/L (136-145)
--- NOTE | 2024-11-14 09:14 | PN.SURG_ITS ---
Subjective Subjective Subjective /24-hour events Patient reporting some shortness of breath yesterday and today. She was positive for COVID (tested yesterday). She has not required supplemental oxygen this morning. Otherwise pain is controlled from the leg. Cultures growing Pseudomonas and coag negative staph from the soft tissue cultures, but the synovial fluid has no growth to date (*from the tap on Thursday, 11 November 2024). Objective Data Objective Data Vital Signs: Vital Signs Temp Pulse Resp BP Pulse Ox O2 Del Method O2 Flow Rate 98 F 109 H 18 126/70 H 94 Room Air 2 11/14/24 05:15 11/14/24 05:15 11/14/24 05:15 11/14/24 05:15 11/14/24 05:15 11/14/24 05:15 11/13/24 06:58 Oxygen Flow Rate (L/min) 2 Oxygen Delivery Method Room Air Weight: 205 lb 7.533 oz Body Mass Index (BMI) 36.3 Intake & Output: Intake and Output for Last 24 Hours 11/12/24 11/13/24 11/14/24 23:59 23:59 23:59 Intake Total 1460 / 1700 2140.83 / 2140.83 583.33 / 583.33 Output Total 425 / 425 Balance 1460 / 1700 1715.83 / 1715.83 583.33 / 583.33 Medical Nutrition Assessment Dietitian: Malnutrition Criteria Met Start: 11/10/24 11:47 Freq: Status: Active Protocol: Document 11/10/24 16:02 SB (Rec: 11/10/24 16:02 SB [id number]) Nutrition Malnutrition Evidence of Yes Malnutrition Exists Malnutrition (severe Acute Illness/Injury ): Evidenced By Suboptimal Energy Intake (Severe),Weight Loss (Severe) Intake Problem Increased Nutrient Needs (specify) Etiology protein related to wound healing Signs/Symptoms as evidenced by open surgical wound on R knee Status Active Problem Clinical Problem Acute Disease or Injury Related Malnutrition Etiology severe related to inadequate oral intake and recent illnesses Signs/Symptoms as evidenced by PO meeting <75% of estimated nutrition needs and 6% unintentional weight loss x 1 month. Status Active Problem Recommendation Dietitian Recommend advanced diet as tolerated to regular diet. Recommendations/ Recommend nick BID to promote wound healing and 120ml Changes ensure plus high protein TID with medpass, as diet is advanced. Will monitor weight trends. Reviewed and approved by Brianna Haddad, YARI, LD. Lab / Micro Data 11/14/24 05:27 11/14/24 05:27 Labs: Laboratory Results - last 24 hr 11/14/24 05:27: WBC 6.0, RBC 3.64 L, Hgb 10.8 L, Hct 34.0 L, MCV 93.4, MCH 29.7, MCHC 31.8 L D, RDW Std Deviation 48.6 H, RDW Coeff of Marielos 14.4, Plt Count 199, MPV 10.1, Immature Gran % (Auto) 1.300 H, Neut % (Auto) 68.4, Lymph % (Auto) 14.1 L, [place] % (Auto) 10.8 H, Eos % (Auto) 4.7, Baso % (Auto) 0.7, Absolute Neuts (auto) 4.1, Absolute Lymphs (auto) 0.84, Nucleated RBC % 0, Sodium 143, P otassium 3.4 L, Chloride 115 H, Carbon Dioxide 22.0, Anion Gap 6, BUN 9, C reatinine 0.43 L, Estim Creat Clear Calc 68.96, Est GFR (MDRD) Af Amer 184, Est GFR (MDRD) Non-Af 152, BUN/Creatinine Ratio 20.8 H, Glucose 105, Calcium 8.6, Phosphorus 3.9, Magnesium 2.1 Micro: Microbiology 11/13/24 10:28 Mucosa - Nasopharyngeal Coronavirus COVID-19 PCR - Final SARS-CoV-2 (COVID 19 PCR) 11/13/24 10:28 Mucosa - Nasopharyngeal Respiratory Panel (PCR) - Final 11/10/24 00:15 Wound - Knee Gram Stain - Final 11/10/24 00:15 Wound - Knee Wound Culture - Final Pseudomonas aeruginosa Coag Negative Staph 11/10/24 00:15 Wound - Knee Skin and Soft Tissue MRSA/MSSA (PCR - Final 11/10/24 13:35 Fluid - Synovial (joint) Gram Stain - Final 11/10/24 13:35 Fluid - Synovial (joint) Body Fluid Culture - Preliminary No growth-Final to follow 11/10/24 13:35 Fluid - Synovial (joint) Anaerobic Culture - Preliminary No growth in 48 hours. 11/09/24 20:14 Urine, Clean Catch Urine Culture - Final Culture exhibits no growth. 11/09/24 19:05 Blood Culture (Wb) - Left Wrist Blood Culture - Preliminary No growth in 48 hours. 11/09/24 18:54 Blood Culture (Wb) - Pic Blood Culture - Preliminary No growth in 48 hours. 11/09/24 19:20 Mucosa - Nose SARS-CoV-2, Influenza & RSV (PCR) - Final Radiography Diagnostic Testing: Radiology Impression Chest X-Ray 11/13/24 09:16 IMPRESSION: As above. Reading [facility] Physical Exam Narrative Right lower extremity: Wound VAC removed to examine wound No draining sinuses, no purulent drainage coming from the joint, no exposed critical structures (no hardware no bone). Wound bed appears to be healthy and granulating. 2+DP and PT pulses Const alert, oriented x3 and no apparent distress General Appearance: cooperative Resp normal respiratory effort Resp Narrative: 1250 on IS this morning Extremity Extremity Narrative: SCD on LLE No calf swelling Assessment & Plan Assessment/Plan (1) Infected prosthetic knee joint: PLAN: Plan Continue irrigating wound VAC while in house F/u cultures from the joint aspiration I do not think that the knee was the cause of sepsis/vital sign instability for which she was admitted to the ICU. Discussed with Dr. Velásquez. We both think it is appropriate to continue wound VAC therapy at this point (he does not think it is appropriate to washout the joint and place antibiotic spacer at this time). From my standpoint the wound looks healthy and there is no purulence or draining sinuses from the joint. Given discussion with the patient and her overall health status, conservative management with wound VAC (which appears to be working to this point) seems appropriate. Plastics will follow closely. Plan for 3 times per week VAC changes and close follow-up in the wound care center (next appointment is 21 November 2024, this Thursday) Charges/Coding Visit Charges Inpatient E&M: 09846 Subs Hosp L2 (Change wound VAC, coordinated with other services, counseled the patient and discussed her overall status with thorough physical exam)
[2024-11-14] MEDS: APIXABAN 5 MG TABLET PO ×2 (10:16→21:45)
[2024-11-14] MEDS: Lactobacillis Acidophilus 1 CAP PO ×2 (10:17→21:45)
[2024-11-14] MEDS: QUEtiapine 25 MG Tablet PO (10:17)
[2024-11-14] MEDS: Vancomycin HCl 1,500 MG in 0.9% Normal Saline (500mL Bag) 500 ML 250 MG IV ×2 (10:17→22:40)
[2024-11-14] MEDS: Ascorbic Acid 500 MG Tablet PO (10:24)
[2024-11-14] MEDS: proCHLORPERazine 10 MG/2 ML Vial 5 MG IV (10:42)
--- NOTE | 2024-11-14 11:59 | WOUNDNOTE ---
wound photo: right knee
--- NOTE | 2024-11-14 14:17 | PCM.PN.ID ---
Physical Exam Narrative Feeling ok, knee less sore, no fever. Cough improved from previous. No headache, congestion, body aches, or dyspnea. 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 Taken to OR by Dr. Velásquez 10/13/24 for I&D and poly exchange. Discharged with picc and 6 weeks iv ceftriaxone, planned stop date 11/24/24. Now with new wound infection, aspiration showed increased neutrophils. Bcx neg. Wound cx with rare PsA/CoNS. Aspiration cx neg so far. Cont empiric vanc/cefepime for now. Suspect covid (+) pcr is residual from covid in October given lack of symptoms. D/w Dr. Velásquez. At this point, no plans for surgery. Will follow
--- NOTE | 2024-11-14 17:35 | PN.HOSP_ITS ---
Subjective Subjective Doing well, no issues overnight Objective Data Objective Data Vital Signs: Vital Signs Temp Pulse Resp BP Pulse Ox O2 Del Method O2 Flow Rate 98.5 F 103 H 15 124/64 H 92 T-piece 2 11/14/24 11:12 11/14/24 11:12 11/14/24 11:12 11/14/24 14:25 11/14/24 15:30 11/14/24 14:25 11/14/24 07:44 Oxygen Flow Rate (L/min) 2 Oxygen Delivery Method T-piece Weight: 205 lb 7.533 oz Body Mass Index (BMI) 36.3 Intake & Output: Intake and Output for Last 24 Hours 11/13/24 11/14/24 11/15/24 03:59 03:59 03:59 Intake Total 1540.83 / 1540.83 1960 / 1960 583.33 / 583.33 Output Total 425 / 425 Balance 1540.83 / 1540.83 1535 / 1535 583.33 / 583.33 Medical Nutrition Assessment Dietitian: Malnutrition Criteria Met Start: 11/10/24 11:47 Freq: Status: Active Protocol: Document 11/10/24 16:02 SB (Rec: 11/10/24 16:02 SB [id number]) Nutrition Malnutrition Evidence of Yes Malnutrition Exists Malnutrition (severe Acute Illness/Injury ): Evidenced By Suboptimal Energy Intake (Severe),Weight Loss (Severe) Intake Problem Increased Nutrient Needs (specify) Etiology protein related to wound healing Signs/Symptoms as evidenced by open surgical wound on R knee Status Active Problem Clinical Problem Acute Disease or Injury Related Malnutrition Etiology severe related to inadequate oral intake and recent illnesses Signs/Symptoms as evidenced by PO meeting <75% of estimated nutrition needs and 6% unintentional weight loss x 1 month. Status Active Problem Recommendation Dietitian Recommend advanced diet as tolerated to regular diet. Recommendations/ Recommend nick BID to promote wound healing and 120ml Changes ensure plus high protein TID with medpass, as diet is advanced. Will monitor weight trends. Reviewed and approved by Brianna Haddad RDN, GENO. Lab / Micro Data 11/14/24 05:27 11/14/24 05:27 Labs: Laboratory Results - last 24 hr 11/14/24 05:27: WBC 6.0, RBC 3.64 L, Hgb 10.8 L, Hct 34.0 L, MCV 93.4, MCH 29.7, MCHC 31.8 L D, RDW Std Deviation 48.6 H, RDW Coeff of Marielos 14.4, Plt Count 199, MPV 10.1, Immature Gran % (Auto) 1.300 H, Neut % (Auto) 68.4, Lymph % (Auto) 14.1 L, [place] % (Auto) 10.8 H, Eos % (Auto) 4.7, Baso % (Auto) 0.7, Absolute Neuts (auto) 4.1, Absolute Lymphs (auto) 0.84, Nucleated RBC % 0, Sodium 143, P otassium 3.4 L, Chloride 115 H, Carbon Dioxide 22.0, Anion Gap 6, BUN 9, C reatinine 0.43 L, Estim Creat Clear Calc 68.96, Est GFR (MDRD) Af Amer 184, Est GFR (MDRD) Non-Af 152, BUN/Creatinine Ratio 20.8 H, Glucose 105, Calcium 8.6, Phosphorus 3.9, Magnesium 2.1 Micro: Microbiology 11/13/24 10:28 Mucosa - Nasopharyngeal Coronavirus COVID-19 PCR - Final SARS-CoV-2 (COVID 19 PCR) 11/13/24 10:28 Mucosa - Nasopharyngeal Respiratory Panel (PCR) - Final 11/10/24 00:15 Wound - Knee Gram Stain - Final 11/10/24 00:15 Wound - Knee Wound Culture - Final Pseudomonas aeruginosa Coag Negative Staph 11/10/24 00:15 Wound - Knee Skin and Soft Tissue MRSA/MSSA (PCR - Final 11/10/24 13:35 Fluid - Synovial (joint) Gram Stain - Final 11/10/24 13:35 Fluid - Synovial (joint) Body Fluid Culture - Preliminary No growth-Final to follow 11/10/24 13:35 Fluid - Synovial (joint) Anaerobic Culture - Preliminary No growth in 48 hours. 11/09/24 20:14 Urine, Clean Catch Urine Culture - Final Culture exhibits no growth. 11/09/24 19:05 Blood Culture (Wb) - Left Wrist Blood Culture - Preliminary No growth in 48 hours. 11/09/24 18:54 Blood Culture (Wb) - Pic Blood Culture - Preliminary No growth in 48 hours. 11/09/24 19:20 Mucosa - Nose SARS-CoV-2, Influenza & RSV (PCR) - Final Physical Exam Narrative General: Alert, Oriented x3, Cooperative, No apparent distress HEENT: Atraumatic, PERRLA, EOMI, Normocephalic Oral: Moist Mucosa Neck: Supple, No JVD Lungs: Diminished, Normal air movement, No rhonchi, No wheeze, No rales Cardiovascular: Regular rate, Regular Rhythm, Normal S1, Normal S2, No murmurs Abdomen: Soft, Non Tender, Non-Distended, No Hepato-splenomegaly Extremities: No edema, Capillary Refill Less than 3 Seconds Skin: Wound VAC to the right knee, dressing intact Musculoskeletal: No Tenderness to Palpation of Joints or Extremities Neurological: No focal neurological deficits, Motor Exam 5/5 strength throughout, Sensory exam intact to light touch and pain Psych/Mental Status: Normal Affect, Appropriate Assessment & Plan Assessment/Plan (1) Septic joint: PLAN: Plan 1. Sepsis ? Secondary to suspected septic arthritis. Patient started on antibiotics per protocol after cultures have been drawn with IV fluid resuscitation. Patient admitted to the intensive care unit consult placed to plastic surgery patient has been seen by Dr. Chisholm plan is for patient to undergo I&D ? 11/11/2024Patient underwent bedside aspiration of the right knee by Dr. Velásquez. Joint aspirate sent for Gram stain and culture. Patient cell counts had a predominance of neutrophils suggestive of septic joint. Patient was also seen in consultation by ID antibiotics subsequently adjusted ? 11/12/2024 patient cultures from the joint aspirate positive for Pseudomonas. Patient remains on cefepime and vancomycin. Patient underwent wound VAC placement the day prior plan is for wound VAC change and wound assessment on 11/14/2024 11/14/2024: Appreciate infectious disease assistance, continue with dressing changes 2. Hypokalemia -corrected for protocol 3. Mild thrombocytopenia ? Monitor 4. Anemia ? Secondary to chronic disorder monitoring H&H and transfuse if patient becomes symptomatic or hemoglobin falls below 7 5. Acute transaminitis ? Suspected to be secondary to sepsis monitor with daily LFTs 11/14/2024: Monitor as an outpatient 6. Acute renal insufficiency ruled out 7. Paroxysmal atrial fibrillation ? Patient rate control remains labile, patient is on Cardizem which she had apparently not received did modify dose. Patient is on apixaban held in anticipation of patient's surgical procedure 11/14/2024: Continue with Eliquis as there is no plan for surgical intervention 8. Class II obesity with BMI of 35.3 ? Weight loss advised 9. severe protein calorie malnutrition ? Evidenced By Suboptimal Energy Intake (Severe),Weight Loss (Severe). Consult placed to dietitian DVT: Eliquis Charges/Coding Visit Charges Inpatient E&M: 59080 Subs Hosp L2
--- NOTE | 2024-11-14 18:56 | PCM.PN.ORT ---
Subjective Subjective Patient remained stable. She been stable since admission. Blood cultures have remained negative. Fluid aspiration cultures have been negative. Patient does have some positive cultures from topical wound. Plastics does not feel the wound communicates with deep structures feels there is good granulation tissue at the base of the wound. Case was discussed with infectious disease today. The symptoms have been stable since surgery in early October. Objective Data Objective Data Vital Signs: Vital Signs Temp Pulse Resp BP Pulse Ox O2 Del Method O2 Flow Rate 98.5 F 103 H 15 124/64 H 92 T-piece 2 11/14/24 11:12 11/14/24 11:12 11/14/24 11:12 11/14/24 14:25 11/14/24 15:30 11/14/24 14:25 11/14/24 07:44 Oxygen Flow Rate (L/min) 2 Oxygen Delivery Method T-piece Weight: 205 lb 7.533 oz Body Mass Index (BMI) 36.3 Intake & Output: Intake and Output for Last 24 Hours 11/12/24 11/13/24 11/14/24 23:59 23:59 23:59 Intake Total 1460 / 1700 2140.83 / 2140.83 1213.33 / 1213.33 Output Total 425 / 425 Balance 1460 / 1700 1715.83 / 1715.83 1213.33 / 1213.33 Medical Nutrition Assessment Dietitian: Malnutrition Criteria Met Start: 11/10/24 11:47 Freq: Status: Active Protocol: Document 11/10/24 16:02 SB (Rec: 11/10/24 16:02 SB [id number]) Nutrition Malnutrition Evidence of Yes Malnutrition Exists Malnutrition (severe Acute Illness/Injury ): Evidenced By Suboptimal Energy Intake (Severe),Weight Loss (Severe) Intake Problem Increased Nutrient Needs (specify) Etiology protein related to wound healing Signs/Symptoms as evidenced by open surgical wound on R knee Status Active Problem Clinical Problem Acute Disease or Injury Related Malnutrition Etiology severe related to inadequate oral intake and recent illnesses Signs/Symptoms as evidenced by PO meeting <75% of estimated nutrition needs and 6% unintentional weight loss x 1 month. Status Active Problem Recommendation Dietitian Recommend advanced diet as tolerated to regular diet. Recommendations/ Recommend nick BID to promote wound healing and 120ml Changes ensure plus high protein TID with medpass, as diet is advanced. Will monitor weight trends. Reviewed and approved by Brianna Haddad RDN, GENO. Lab / Micro Data Attestation: I reviewed the patient's lab results. 11/14/24 05:27 11/14/24 05:27 Labs: Laboratory Results - last 24 hr 11/14/24 05:27: WBC 6.0, RBC 3.64 L, Hgb 10.8 L, Hct 34.0 L, MCV 93.4, MCH 29.7, MCHC 31.8 L D, RDW Std Deviation 48.6 H, RDW Coeff of Marielos 14.4, Plt Count 199, MPV 10.1, Immature Gran % (Auto) 1.300 H, Neut % (Auto) 68.4, Lymph % (Auto) 14.1 L, Sac % (Auto) 10.8 H, Eos % (Auto) 4.7, Baso % (Auto) 0.7, Absolute Neuts (auto) 4.1, Absolute Lymphs (auto) 0.84, Nucleated RBC % 0, Sodium 143, Potassium 3.4 L, Chloride 115 H, Carbon Dioxide 22.0, Anion Gap 6, BUN 9, Creatinine 0.43 L, Estim Creat Clear Calc 68.96, Est GFR (MDRD) Af Amer 184, Est GFR (MDRD) Non-Af 152, BUN/Creatinine Ratio 20.8 H, Glucose 105, Calcium 8.6, Phosphorus 3.9, Magnesium 2.1 Micro: Microbiology 11/13/24 10:28 Mucosa - Nasopharyngeal Coronavirus COVID-19 PCR - Final SARS-CoV-2 (COVID 19 PCR) 11/13/24 10:28 Mucosa - Nasopharyngeal Respiratory Panel (PCR) - Final 11/10/24 00:15 Wound - Knee Gram Stain - Final 11/10/24 00:15 Wound - Knee Wound Culture - Final Pseudomonas aeruginosa Coag Negative Staph 11/10/24 00:15 Wound - Knee Skin and Soft Tissue MRSA/MSSA (PCR - Final 11/10/24 13:35 Fluid - Synovial (joint) Gram Stain - Final 11/10/24 13:35 Fluid - Synovial (joint) Body Fluid Culture - Preliminary No growth-Final to follow 11/10/24 13:35 Fluid - Synovial (joint) Anaerobic Culture - Preliminary No growth in 48 hours. 11/09/24 20:14 Urine, Clean Catch Urine Culture - Final Culture exhibits no growth. 11/09/24 19:05 Blood Culture (Wb) - Left Wrist Blood Culture - Preliminary No growth in 48 hours. 11/09/24 18:54 Blood Culture (Wb) - Pic Blood Culture - Preliminary No growth in 48 hours. 11/09/24 19:20 Mucosa - Nose SARS-CoV-2, Influenza & RSV (PCR) - Final Physical Exam Narrative Right lower extremity: Wound VAC is in place. Dakin solution irrigating. Neurovascular intact distally. No erythema. Continued effusion. Const alert and oriented x3 Assessment & Plan Assessment/Plan (1) Infected prosthetic knee joint: PLAN: Patient had irrigation debridement in early October after an acute hematogenous infection. She had septic like symptoms last week however does not have significant of evidence to support return to surgery as the knee being a source of infection. Patient has negative blood cultures and aspiration cultures. Patient soft tissue envelope was compromised and further surgery could lead to larger wound complications. Case has been discussed with plastics and infectious disease. Should be noted that the medicine note 2 days in a row now says positive aspiration cultures however I did speak with the attending yesterday and clarified those as the aspiration cultures have remained negative. Ultimately, I feel the patient's initial course of treatment for IV antibiotics after the irrigation debridement remains the appropriate course of action for this patient. Will continue to allow plastic surgery to treat the wound with the wound VAC. There appears to be some progress in this fashion. Based on this patient is clinically stable. No plans for surgery on this admission at this time. Patient should follow-up in the office in 10 to 14 days with orthopedics for wound check. Would also consider extending IV antibiotic treatment however would defer to infectious disease. Please call orthopedics for any further questions or concerns. FATOUMATA [facility] Office:
[2024-11-14] MEDS: 0.9% Saline Lock 10 ML Syringe IV (21:46)
[2024-11-14 22:20] LABS: Vancomycin, Trough Level 19.5 ug/mL (5.0-15.0)
[2024-11-15] MEDS: dilTIAZem 60 MG Tablet PO ×2 (01:38→06:14)
--- NOTE | 2024-11-15 01:57 | PCM.RX.CS ---
Consult Antibiotic Management Pharmacy has been consulted to manage selected antibiotic: Vancomycin Type of Intervention Type of Consult: Follow-up Labs Labs: Sodium 143 mmol/L (136-145) 11/14/24 05:27 Potassium 3.4 mmol/L (3.5-5.1) L 11/14/24 05:27 Chloride 115 mmol/L (98-107) H 11/14/24 05:27 Carbon Dioxide 22.0 mmol/L (21.0-32.0) 11/14/24 05:27 Anion Gap 6 (5-15) 11/14/24 05:27 BUN 9 mg/dL (7-18) 11/14/24 05:27 Creatinine 0.43 mg/dL (0.55-1.02) L 11/14/24 05:27 Est GFR (MDRD) Af Amer 184 mL/min (>60) 11/14/24 05:27 Est GFR (MDRD) Non-Af 152 mL/min (>60) 11/14/24 05:27 BUN/Creatinine Ratio 20.8 RATIO (10-20) H 11/14/24 05:27 Glucose 105 mg/dL (74-106) 11/14/24 05:27 Vancomycin Trough 19.5 ug/mL (5.0-15.0) H 11/14/24 21:39 Microbiology Microbiology: Microbiology 11/13/24 10:28 Mucosa - Nasopharyngeal Coronavirus COVID-19 PCR - Final SARS-CoV-2 (COVID 19 PCR) 11/13/24 10:28 Mucosa - Nasopharyngeal Respiratory Panel (PCR) - Final 11/10/24 00:15 Wound - Knee Gram Stain - Final 11/10/24 00:15 Wound - Knee Wound Culture - Final Pseudomonas aeruginosa Coag Negative Staph 11/10/24 00:15 Wound - Knee Skin and Soft Tissue MRSA/MSSA (PCR - Final 11/10/24 13:35 Fluid - Synovial (joint) Gram Stain - Final 11/10/24 13:35 Fluid - Synovial (joint) Body Fluid Culture - Preliminary No growth-Final to follow 11/10/24 13:35 Fluid - Synovial (joint) Anaerobic Culture - Preliminary No growth in 48 hours. 11/09/24 20:14 Urine, Clean Catch Urine Culture - Final Culture exhibits no growth. 11/09/24 19:05 Blood Culture (Wb) - Left Wrist Blood Culture - Preliminary No growth in 48 hours. 11/09/24 18:54 Blood Culture (Wb) - Pic Blood Culture - Preliminary No growth in 48 hours. 11/09/24 19:20 Mucosa - Nose SARS-CoV-2, Influenza & RSV (PCR) - Final Goal Trough Goal Trough: 15-20 mcg/mL Pharmacy Plan for Drug Dosing Pharmacy Plan for Drug Dosing: Pharmacy Service will continue to monitor and adjust dosing as required. TROUGH 19.5 @ 11.5 HOURS. NO CHANGES, FOLLOW UP TROUGH IN 1 DAY PER HIGH END OF GOAL TROUGH Follow-Up Labs Follow-Up Labs: Trough: Vancomycin Date/Time Labs Ordered Labs to be done on [date and time ordered]: 11/15 @ 7832
[2024-11-15 03:00] VITALS: BP 100/65; PULSE 106; RESP 18; TEMP 36.6; O2SAT 95
[2024-11-15 03:59] VITALS: BMI 36.5
[2024-11-15 04:03] LABS: Absolute Lymphocyte Count 0.96 X10^3/uL (0.83-4.51); Absolute Neutrophil Count 4.4 X10^3/uL (2.0-7.7); Basophil# 0.06 X10^3/uL; Basophil% 0.9 % (0-1); Eosinophil# 0.37 X10^3/uL; Eosinophils% 5.6 % (0-5); Hematocrit 32.1 % (37-47); Hemoglobin 10.3 g/dL (12.0-15.0); Lymphocyte # 0.96 X10^3/ul (0.83-4.51); Lymphocyte % 14.5 % (19-41); Mean Corp Hgb Conc 32.1 g/dL (32-36); Mean Corpuscular Hgb 29.5 pg (27.0-32.0); Mean Platelet Vol. 9.6 fl (6.2-12.0); Monocyte# 0.75 X10^3/uL; Monocyte% 11.3 % (0-10); NRBC Flagged by Analyzer 0 % (0-5); Neutrophil # 4.39 X10^3/uL (2.7-7.7); Platelet Count 211 K/mm3 (150-450); RBC Distribution Width CV 14.5 % (11.6-14.6); RBC Distribution Width SD 47.9 fl (35.1-43.9); Red Blood Count 3.49 M/mm3 (4.2-5.4); White Blood Count 6.6 K/mm3 (4.4-11.0)
[2024-11-15 04:41] LABS: Anion Gap 6 (5-15); BUN 9 mg/dL (7-18); BUN/Creat Ratio 20.6 RATIO (10-20); Calcium,Total 8.4 mg/dL (8.5-10.1); Chloride 116 mmol/L (98-107); Creatinine, Serum 0.44 mg/dL (0.55-1.02); EST Glomerular Filtration Rate 150 mL/min (>60); Est Glom Filt Rate - Afr Amer 182 mL/min (>60); Estimated Creatinine Clearance 69.12 ml/min; Glucose 106 mg/dL (74-106); Potassium 3.6 mmol/L (3.5-5.1); Sodium Level 144 mmol/L (136-145)
[2024-11-15] MEDS: Acetaminophen 500 MG Tablet 1000 MG PO ×2 (06:14→15:04)
[2024-11-15] MEDS: proCHLORPERazine 10 MG/2 ML Vial 5 MG IV (06:29)
[2024-11-15] MEDS: Cefepime HCl 2 GM in 0.9% Normal Saline (100mL MB+) 100 ML IV ×2 (06:33→15:04)
[2024-11-15 06:36] VITALS: BP 137/73; PULSE 108
[2024-11-15 08:02] VITALS: O2SAT 95
[2024-11-15 09:00] VITALS: BP 113/57; PULSE 113; RESP 18; TEMP 36.3; O2SAT 96
[2024-11-15] MEDS: APIXABAN 5 MG TABLET PO (10:00)
[2024-11-15] MEDS: Lactobacillis Acidophilus 1 CAP PO (10:01)
[2024-11-15] MEDS: QUEtiapine 25 MG Tablet PO (10:01)
[2024-11-15] MEDS: Ascorbic Acid 500 MG Tablet PO (10:01)
[2024-11-15] MEDS: Vancomycin HCl 1,500 MG in 0.9% Normal Saline (500mL Bag) 500 ML 250 MG IV (10:11)
--- NOTE | 2024-11-15 10:30 | CASEMGMT ---
RN CM received script for IV ATBs, discharge community health planning director to send referral to [facility].
--- NOTE | 2024-11-15 10:39 | PN.ID_ITS ---
Physical Exam Narrative Feeling ok, no fever, no n/v/d. 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 Taken to OR by Dr. Velásquez 10/13/24 for I&D and poly exchange. Discharged with picc and 6 weeks iv ceftriaxone, planned stop date 11/24/24. Now with new wound infection, aspiration showed increased neutrophils. Bcx neg. Wound cx with rare PsA/CoNS. Aspiration cx neg so far. Cont cefepime. Suspect covid (+) pcr is residual from covid in October given lack of symptoms. At this point, no plans for surgery. Will write for cefepime IV, stop date 12/02/24 with weekly labs, ID followup in 2 weeks. D/w case finishing machine adjuster. Will follow
--- NOTE | 2024-11-15 12:04 | PCM.PN.HOSP ---
Subjective Subjective Doing well, feels better today. She still some shortness of breath but this is likely due to the lack of mobility in the hospital Objective Data Objective Data Vital Signs: Vital Signs Temp Pulse Resp BP Pulse Ox O2 Del Method O2 Flow Rate 97.3 F L 113 H 18 113/57 L 96 Room Air 2 11/15/24 09:00 11/15/24 09:00 11/15/24 09:00 11/15/24 09:00 11/15/24 09:00 11/15/24 09:00 11/14/24 07:44 Oxygen Flow Rate (L/min) 2 Oxygen Delivery Method Room Air Weight: 206 lb 5.643 oz Body Mass Index (BMI) 36.5 Intake & Output: Intake and Output for Last 24 Hours 11/14/24 11/15/24 11/16/24 03:59 03:59 03:59 Intake Total 1960 / 1960 1793.33 / 1793.33 220 / 220 Output Total 425 / 425 Balance 1535 / 1535 1793.33 / 1793.33 220 / 220 Medical Nutrition Assessment Dietitian: Malnutrition Criteria Met Start: 11/10/24 11:47 Freq: Status: Active Protocol: Document 11/10/24 16:02 SB (Rec: 11/10/24 16:02 SB [id number]) Nutrition Malnutrition Evidence of Yes Malnutrition Exists Malnutrition (severe Acute Illness/Injury ): Evidenced By Suboptimal Energy Intake (Severe),Weight Loss (Severe) Intake Problem Increased Nutrient Needs (specify) Etiology protein related to wound healing Signs/Symptoms as evidenced by open surgical wound on R knee Status Active Problem Clinical Problem Acute Disease or Injury Related Malnutrition Etiology severe related to inadequate oral intake and recent illnesses Signs/Symptoms as evidenced by PO meeting <75% of estimated nutrition needs and 6% unintentional weight loss x 1 month. Status Active Problem Recommendation Dietitian Recommend advanced diet as tolerated to regular diet. Recommendations/ Recommend nick BID to promote wound healing and 120ml Changes ensure plus high protein TID with medpass, as diet is advanced. Will monitor weight trends. Reviewed and approved by Brianna Haddad RDN, [facility]. Lab / Micro Data 11/15/24 03:36 11/15/24 03:36 Labs: Laboratory Results - last 24 hr 11/14/24 21:39: Vancomycin Trough 19.5 H 11/15/24 03:36: WBC 6.6, RBC 3.49 L, Hgb 10.3 L, Hct 32.1 L, MCV 92.0, MCH 29.5, MCHC 32.1, RDW Std Deviation 47.9 H, RDW Coeff of Marielos 14.5, Plt Count 211, MPV 9.6, Immature Gran % (Auto) 1.700 H, Neut % (Auto) 66.0, Lymph % (Auto) 14.5 L, [place] % (Auto) 11.3 H, Eos % (Auto) 5.6 H, Baso % (Auto) 0.9, Absolute Neuts (auto) 4.4, Absolute Lymphs (auto) 0.96, Nucleated RBC % 0, Sodium 144, Potassium 3.6, Chloride 116 H, Carbon Dioxide 23.0, Anion Gap 6, BUN 9, Creatinine 0.44 L, Estim Creat Clear Calc 69.12, Est GFR (MDRD) Af Amer 182, Est GFR (MDRD) Non-Af 150, BUN/Creatinine Ratio 20.6 H, Glucose 106, Calcium 8.4 L Micro: Microbiology 11/10/24 13:35 Fluid - Synovial (joint) Gram Stain - Final 11/10/24 13:35 Fluid - Synovial (joint) Body Fluid Culture - Final No growth in 5 days. 11/10/24 13:35 Fluid - Synovial (joint) Anaerobic Culture - Final No growth in 5 days. 11/09/24 18:54 Blood Culture (Wb) - Pic Blood Culture - Final No growth in 5 days. 11/09/24 19:05 Blood Culture (Wb) - Left Wrist Blood Culture - Final No growth in 5 days. 11/13/24 10:28 Mucosa - Nasopharyngeal Coronavirus COVID-19 PCR - Final SARS-CoV-2 (COVID 19 PCR) 11/13/24 10:28 Mucosa - Nasopharyngeal Respiratory Panel (PCR) - Final 11/10/24 00:15 Wound - Knee Gram Stain - Final 11/10/24 00:15 Wound - Knee Wound Culture - Final Pseudomonas aeruginosa Coag Negative Staph 11/10/24 00:15 Wound - Knee Skin and Soft Tissue MRSA/MSSA (PCR - Final 11/09/24 20:14 Urine, Clean Catch Urine Culture - Final Culture exhibits no growth. 11/09/24 19:20 Mucosa - Nose SARS-CoV-2, Influenza & RSV (PCR) - Final Physical Exam Narrative General: Alert, Oriented x3, Cooperative, No apparent distress HEENT: Atraumatic, PERRLA, EOMI, Normocephalic Oral: Moist Mucosa Neck: Supple, No JVD Lungs: Diminished, Normal air movement, No rhonchi, No wheeze, No rales Cardiovascular: Regular rate, Regular Rhythm, Normal S1, Normal S2, No murmurs Abdomen: Soft, Non Tender, Non-Distended, No Hepato-splenomegaly Extremities: No edema, Capillary Refill Less than 3 Seconds Skin: Wound VAC to the right knee, dressing intact Musculoskeletal: No Tenderness to Palpation of Joints or Extremities Neurological: No focal neurological deficits, Motor Exam 5/5 strength throughout, Sensory exam intact to light touch and pain Psych/Mental Status: Normal Affect, Appropriate Assessment & Plan Assessment/Plan (1) Septic joint: PLAN: Plan 1. Sepsis ? Secondary to suspected septic arthritis. Patient started on antibiotics per protocol after cultures have been drawn with IV fluid resuscitation. Patient admitted to the intensive care unit consult placed to plastic surgery patient has been seen by Dr. Chisholm plan is for patient to undergo I&D ? 11/11/2024Patient underwent bedside aspiration of the right knee by Dr. Velásuqez. Joint aspirate sent for Gram stain and culture. Patient cell counts had a predominance of neutrophils suggestive of septic joint. Patient was also seen in consultation by ID antibiotics subsequently adjusted ? 11/12/2024 patient cultures from the joint aspirate positive for Pseudomonas. Patient remains on cefepime and vancomycin. Patient underwent wound VAC placement the day prior plan is for wound VAC change and wound assessment on 11/14/2024 11/14/2024: Appreciate infectious disease assistance, continue with dressing changes 11/15/2024: 2021 discussed the case with plastic surgery to determine discharge planning it appears that she should be able to go home with 3 times a week VAC changes, she does have an appointment on 11/21/2024 at the wound care center. Of note her topical wound culture was positive for Pseudomonas but the aspiration culture was negative and has no growth for 5 days. Appreciate infectious disease recommendations, cefepime prescription has been written and placed in chart 2. Hypokalemia -corrected for protocol 3. Mild thrombocytopenia ? Monitor 4. Anemia ? Secondary to chronic disorder monitoring H&H and transfuse if patient becomes symptomatic or hemoglobin falls below 7 5. Acute transaminitis ? Suspected to be secondary to sepsis monitor with daily LFTs 11/14/2024: Monitor as an outpatient 6. Acute renal insufficiency ruled out 7. Paroxysmal atrial fibrillation ? Patient rate control remains labile, patient is on Cardizem which she had apparently not received did modify dose. Patient is on apixaban held in anticipation of patient's surgical procedure 11/14/2024: Continue with Eliquis as there is no plan for surgical intervention 8. Class II obesity with BMI of 35.3 ? Weight loss advised 9. severe protein calorie malnutrition ? Evidenced By Suboptimal Energy Intake (Severe),Weight Loss (Severe). Consult placed to dietitian DVT: Coy Charges/Coding Visit Charges Inpatient E&M: 83528 Subs Hosp L2
--- NOTE | 2024-11-15 14:46 | PCM.DC ---
Discharge Instructions Diet Discharge Diet: Low fat / Low cholesterol DC O2, CPAP, BIPAP needs Home O2 Discharge instructions: No Dressing / Incision Discharge Activity: Return to Normal Activity Dressing / Incision Call your doctor if you observe: Fever of 101 or Higher, Shortness of breath, Dizziness, Fainting spells, Swelling in the ankles, Chest pain and Increased palpitations (irregular heartbeat) Follow Up Care Test Results: Test results from this visit will be discussed in further detail at your follow-up appointment, if applicable. Discharge Plan Admission Admit Date/Time: 11/09/24 22:01 Attending Provider: Raymond Patricio Primary Care Provider: Damian Craig Consulting Providers: Elmo Velásquez; Ariel Chisholm; Ariel Traylor; Shadia Nance; Aaron Tony Instructions Additional Instructions / Restrictions: Plastics Instructions Make sure the VAC is changed three times per week, Thursday,Thu, and Thursday. You need to follow up on Thursday, 21 Nov 2024, with Dr. Chisholm in the wound care center. Discharge Orders/Prescriptions Prescriptions: New cefepime 2 gram Recon Soln 2 g IV Q8 17 Days Qty: 51 0RF Rx Instructions: stop date 12/02/24. Dx: PJI weekly bmp, cbc, and esr. Fax to [phone]. Routine picc care per protocol. diltiazem HCl [Cartia XT] 240 mg capsule,extended release 24hr 240 mg PO QHS Qty: 30 0RF Continued acetaminophen 500 mg tablet 1,000 mg PO Q8 PRN (Reason: pain) Rx Instructions: Do not take more than 3000 mg Tylenol in a 24-hour period. cholecalciferol (vitamin D3) 25 mcg (1,000 unit) tablet 25 mcg PO QDAY ascorbic acid (vitamin C) [Vitamin C] 500 mg tablet 500 mg PO QAM magnesium oxide 400 mg (241.3 mg magnesium) tablet 400 mg PO QHS quetiapine 25 mg tablet 25 mg PO DAILY Patient Comments: take one tablet at bedtime for 2 nights, then increase to 2 tablets. Took 1 tablet last night 11/08/24 hydroxyzine HCl 25 mg tablet 25 mg PO QHS PRN PRN (Reason: anxiety) Eliquis 5 mg tablet 5 mg PO BID Qty: 180 4RF Discontinued diltiazem HCl [DILT-XR] 180 mg capsule,ext.rel 24h degradable 180 mg PO QPM ceftriaxone 2 gram recon soln 2 g IV Q24H 40 Days Rx Instructions: stop date 11/24/24. Dx: PJI weekly bmp, cbc, and esr. Fax to [phone]. Routine picc care per protocol. Referrals / Follow Up: Damian Craig MD [Primary Care Provider] - Within 1 Week Hyperbaric Medicine,[facility] and [Non-Staff] - 11/21/24 Disposition Disposition (needs filled in before D/C Order can be placed): Home Health Service
--- NOTE | 2024-11-15 15:46 | PHA.DC_ITS ---
Pharmacy [place] Med Reconciliation Pharmacy Service has performed discharge medication reconciliation for this patient. Patient has had diltiazem before, did not counselor marriage and family, has [facility]. Medications reviewed. The patient's discharge medication list was reviewed for discrepancies and discrepancies were resolved. Medications at Discharge Home Medications acetaminophen 500 mg tablet 1,000 mg PO Q8 PRN pain 07/23/22 ascorbic acid (vitamin C) 500 mg tablet (Vitamin C) 500 mg PO QAM osteoporosis 05/31/24 cholecalciferol (vitamin D3) 25 mcg (1,000 unit) tablet 25 mcg PO QDAY SUPPLEMENT 05/31/24 apixaban 5 mg tablet (Eliquis) 5 mg PO BID BLOOD THINNER #180 tabs 08/26/24 magnesium oxide 400 mg (241.3 mg magnesium) tablet 400 mg PO QHS SUPPLEMENT 10/03/24 hydroxyzine HCl 25 mg tablet 25 mg PO QHS PRN PRN anxiety 11/09/24 quetiapine 25 mg tablet 25 mg PO DAILY 11/09/24 cefepime 2 gram solution for injection 2 g IV Q8 17 days #51 ea 11/15/24 diltiazem HCl 240 mg capsule,extended release 24 hr (Cartia XT) 240 mg PO QHS #30 caps 11/15/24
[2024-11-15 16:34] VITALS: BP 131/77; PULSE 119; RESP 17; TEMP 36.1; O2SAT 95
--- NOTE | 2024-11-15 16:49 | CASEMGMT ---
Patient to discharge home. TEENA SIMMS updated [facility] and arranged for delivery of IV ATBS tonight. TEENA SIMMS updated [facility] and start of care planned for tomorrow. TEENA SIMMS in to update patient and family. Patient voiced appreciation and had no further questions or concerns. TEENA SIMMS updated discharge.
--- NOTE | 2024-11-15 19:23 | DS.PCM_ITS ---
Providers Date of Admission: 11/09/24 Primary Care Physician: Dr. Damian Craig MD Consultations 11/09/24 23:22 Consult: Infectious Disease Routine Consulting Provider: Ariel Traylor Reason for Consult: Septic joint EMERGENT Consult: No MD Notified: Yes Date Notified: 11/09/24 Time Notified: 22:03 Method of Notification: Text Consult: [employer] / Pulmonary Medicine Routine Consulting Provider: Intensivists/Pulmonary Med Reason for Consult: Sepsis, infected joint EMERGENT Consult: No MD Notified: Yes Date Notified: 11/09/24 Time Notified: 22:09 Method of Notification: Text Consult: Orthopedics Routine Consulting Provider: Elmo Velásquez Reason for Consult: Septic joint EMERGENT Consult: No MD Notified: Yes Date Notified: 11/09/24 Time Notified: 22:02 Method of Notification: ED Physician Initiated Consult: Plastic Surgery Routine Consulting Provider: Ariel Chisholm Reason for Consult: Septic joint, knee wound EMERGENT Consult: No MD Notified: Yes Date Notified: 11/09/24 Time Notified: 22:03 Method of Notification: ED Physician Initiated 11/10/24 14:19 Consult: Onc/Wound/metal flow coordinator Routine Comment: Reason for Consult:: right knee Reason For Visit: SEPSIS, SEPTIC KNEE Diagnosis Discharge Diagnosis (1) Septic joint: Status: Acute Code(s): M00.9 - Pyogenic arthritis, unspecified Medications at Discharge Home Medications acetaminophen 500 mg tablet 1,000 mg PO Q8 PRN pain 07/23/22 ascorbic acid (vitamin C) 500 mg tablet (Vitamin C) 500 mg PO QAM osteoporosis 05/31/24 cholecalciferol (vitamin D3) 25 mcg (1,000 unit) tablet 25 mcg PO QDAY SUPPLEMENT 05/31/24 apixaban 5 mg tablet (Eliquis) 5 mg PO BID BLOOD THINNER #180 tabs 08/26/24 magnesium oxide 400 mg (241.3 mg magnesium) tablet 400 mg PO QHS SUPPLEMENT 10/03/24 hydroxyzine HCl 25 mg tablet 25 mg PO QHS PRN PRN anxiety 11/09/24 quetiapine 25 mg tablet 25 mg PO DAILY 11/09/24 cefepime 2 gram solution for injection 2 g IV Q8 17 days #51 ea 11/15/24 diltiazem HCl 240 mg capsule,extended release 24 hr (Cartia XT) 240 mg PO QHS #30 caps 11/15/24 Hospital Course Operations None Procedures None Summary of Care Provided Minutes Spent on Discharge: 38 Hospital Course: Per HPI: The patient is a 74-year-old female with past medical history GERD, hypertension, hyperlipidemia, chronic migraines, former tobacco use, PAF, anxiety and depression, obesity who presents to the 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 Velásquez with noted aspiration with group G strep discharged at that time with a PICC line with 6 weeks of planned IV Rocephin with stop date 11/24/2024 with plan follow-up with ID in 2 to 3 weeks with outpatient wound healing clinic evaluation per plastic surgery on 11/08/[address] Chisholm for right knee wound following the infected arthroplasty secondary to drainage and wound healing issues at the distal portion of the incision with no fevers or chills but worsened appearance as well as onset of chills just over the last day prompting eventual evaluation in the ED per plastic surgery recommendation on 11/09/2024. She notes the pain is more of a throbbing ache to the right knee is not worse than it was previously. Workup in the ED included T99.8, heart rate 154, BP 119/54, respiratory rate 20, 97% on room air with most recent repeat evaluation T98.4, heart 127, BP 108/59, respiratory rate 12, 96% room air, CBC with WBC 6.1, hemoglobin 11.2, MCV 91.6, platelet 132 with increased immature granulocytes with lymphopenia, coags unremarkable aside PT 16.8, CMP with potassium 3.3, BUN/: 30/0.70, GFR 87, glucose 109, lactic acid 2.3, T. bili 1.20, AST/LT 233/211, alk phos 512, urinalysis with no obvious evidence of UTI, chest x-ray with no acute cardiopulmonary findings, plain film of the right knee with arthroplasty with large knee joint effusion, EKG with sinus tachycardia with no acute evidence of ischemia. In the ED patient administered 2 L normal saline (30 cc/kg would be 3L but notable amount for her age, decreased per ED to be cautious), Tylenol 650 mg p.o. x 1, IV Zosyn and vancomycin. ED discussed case with Genna/Kathrine. Hospital Course: 1. Sepsis ? Secondary to suspected septic arthritis. Patient started on antibiotics per protocol after cultures have been drawn with IV fluid resuscitation. Patient admitted to the intensive care unit consult placed to plastic surgery patient has been seen by Dr. Chisholm plan is for patient to undergo I&D ? 11/11/2024Patient underwent bedside aspiration of the right knee by Dr. Velásquez. Joint aspirate sent for Gram stain and culture. Patient cell counts had a predominance of neutrophils suggestive of septic joint. Patient was also seen in consultation by ID antibiotics subsequently adjusted ? 11/12/2024 patient cultures from the joint aspirate positive for Pseudomonas. Patient remains on cefepime and vancomycin. Patient underwent wound VAC placement the day prior plan is for wound VAC change and wound assessment on 11/14/2024 11/14/2024: Appreciate infectious disease assistance, continue with dressing changes 11/15/2024: Discussed the case with plastic surgery who is okay with discharge discharge today,. I discussed the plan for discharge expressed understanding and was amenable to going home and would like to go home today. It appears that she should be able to go home with 3 times a week VAC changes, she does have an appointment on 11/21/2024 at the wound care center. Of note her topical wound culture was positive for Pseudomonas but the aspiration culture was negative and has no growth for 5 days. Appreciate infectious disease recommendations, cefepime prescription has been written and placed in chart we will continue with cefepime as ordered by infectious disease 2. Hypokalemia -corrected for protocol 3. Mild thrombocytopenia ? Monitor 4. Anemia ? Secondary to chronic disorder monitoring H&H and transfuse if patient becomes symptomatic or hemoglobin falls below 7 5. Acute transaminitis ? Suspected to be secondary to sepsis monitor with daily LFTs 11/14/2024: Monitor as an outpatient 6. Acute renal insufficiency ruled out 7. Paroxysmal atrial fibrillation ? Patient rate control remains labile, patient is on Cardizem which she had apparently not received did modify dose. Patient is on apixaban held in anticipation of patient's surgical procedure 11/14/2024: Continue with Eliquis as there is no plan for surgical intervention 11/15/2024: Will resume her home Cardizem but increase dose from 180 mg to 240 mg as she has been getting 60 mg every 6 while she is here and her blood pressure and her heart rate regularly tolerated. I do recommend she follow-up with cardiology as an outpatient for any further medication adjustments. 8. Class II obesity with BMI of 35.3 ? Weight loss advised 9. severe protein calorie malnutrition ? Evidenced By Suboptimal Energy Intake (Severe),Weight Loss (Severe). Consult placed to dietitian Physical Exam Narrative General: Alert, Oriented x3, Cooperative, No apparent distress HEENT: Atraumatic, PERRLA, EOMI, Normocephalic Oral: Moist Mucosa Neck: Supple, No JVD Lungs: Diminished, Normal air movement, No rhonchi, No wheeze, No rales Cardiovascular: Irregular rate and rhythm, Normal S1, Normal S2, No murmurs Abdomen: Soft, Non Tender, Non-Distended, No Hepato-splenomegaly Extremities: No edema, Capillary Refill Less than 3 Seconds Skin: Wound VAC to the right knee, dressing intact Musculoskeletal: No Tenderness to Palpation of Joints or Extremities Neurological: No focal neurological deficits, Motor Exam 5/5 strength throughout, Sensory exam intact to light touch and pain Psych/Mental Status: Normal Affect, Appropriate Weight / BMI Weight Weight: 206 lb 5.643 oz Body Mass Index (BMI) 36.5 ABG / Lab / Microbiology Data 11/15/24 03:36 11/15/24 03:36 Laboratory: Laboratory Results - last 24 hr 11/14/24 21:39: Vancomycin Trough 19.5 H 11/15/24 03:36: WBC 6.6, RBC 3.49 L, Hgb 10.3 L, Hct 32.1 L, MCV 92.0, MCH 29.5, MCHC 32.1, RDW Std Deviation 47.9 H, RDW Coeff of Marielos 14.5, Plt Count 211, MPV 9.6, Immature Gran % (Auto) 1.700 H, Neut % (Auto) 66.0, Lymph % (Auto) 14.5 L, [place] % (Auto) 11.3 H, Eos % (Auto) 5.6 H, Baso % (Auto) 0.9, Absolute Neuts (auto) 4.4, Absolute Lymphs (auto) 0.96, Nucleated RBC % 0, Sodium 144, Potassium 3.6, Chloride 116 H, Carbon Dioxide 23.0, Anion Gap 6, BUN 9, C reatinine 0.44 L, Estim Creat Clear Calc 69.12, Est GFR (MDRD) Af Amer 182, Est GFR (MDRD) Non-Af 150, BUN/Creatinine Ratio 20.6 H, Glucose 106, Calcium 8.4 L Microbiology: Microbiology 11/10/24 13:35 Fluid - Synovial (joint) Gram Stain - Final 11/10/24 13:35 Fluid - Synovial (joint) Body Fluid Culture - Final No growth in 5 days. 11/10/24 13:35 Fluid - Synovial (joint) Anaerobic Culture - Final No growth in 5 days. 11/09/24 18:54 Blood Culture (Wb) - Pic Blood Culture - Final No growth in 5 days. 11/09/24 19:05 Blood Culture (Wb) - Left Wrist Blood Culture - Final No growth in 5 days. 11/13/24 10:28 Mucosa - Nasopharyngeal Coronavirus COVID-19 PCR - Final SARS-CoV-2 (COVID 19 PCR) 11/13/24 10:28 Mucosa - Nasopharyngeal Respiratory Panel (PCR) - Final 11/10/24 00:15 Wound - Knee Gram Stain - Final 11/10/24 00:15 Wound - Knee Wound Culture - Final Pseudomonas aeruginosa Coag Negative Staph 11/10/24 00:15 Wound - Knee Skin and Soft Tissue MRSA/MSSA (PCR - Final 11/09/24 20:14 Urine, Clean Catch Urine Culture - Final Culture exhibits no growth. 11/09/24 19:20 Mucosa - Nose SARS-CoV-2, Influenza & RSV (PCR) - Final D/C Instructions Discharge Diet: Low fat / Low cholesterol Call your doctor if you observe: Fever of 101 or Higher, Shortness of breath, Dizziness, Fainting spells, Swelling in the ankles, Chest pain and Increased palpitations (irregular heartbeat) DC O2, CPAP, BIPAP Needs Home O2 Discharge instructions: No Meaningful Use Info Meaningful Use Meaningful Use Diagnoses (Choose all that apply): None applicable Ischemic Stroke Statin Dosing Therapy Reference: STATIN DOSE THERAPY REFERENCE: * Patients > 75 years receive moderate or high dose statin therapy. * Patients 75 years or YOUNGER should receive HIGH intensity statin dose unless contraindicated. You will be required to document reason for non-treatment if statin daily dose does not meet guidelines. HIGH DOSE STATIN THERAPY DAILY Atorvastatin > than or = to 40 mg Rosuvastatin > than or = to 20 mg Amlodipine + Atorvastatin > than or = to 2.5/40 mg Ezetimibe + Simvastatin 10/80 mg Simvastatin 80mg Discharge Plan Admission Admit Date/Time: 11/09/24 22:01 Attending Provider: Raymond Patricio Primary Care Provider: Damian Craig Consulting Providers: Elmo Velásquez; Ariel Chisholm; Ariel Traylor; Shadia Nance; Aaron Tony Instructions Additional Instructions / Restrictions: Plastics Instructions Make sure the VAC is changed three times per week, Thursday,Thu, and Thursday. You need to follow up on Thursday, 21 Nov 2024, with Dr. Chisholm in the wound care center. Discharge Orders/Prescriptions Prescriptions: New cefepime 2 gram Recon Soln 2 g IV Q8 17 Days Qty: 51 0RF Rx Instructions: stop date 12/02/24. Dx: PJI weekly bmp, cbc, and esr. Fax to [phone]. Routine picc care per protocol. diltiazem HCl [Cartia XT] 240 mg capsule,extended release 24hr 240 mg PO QHS Qty: 30 0RF Continued acetaminophen 500 mg tablet 1,000 mg PO Q8 PRN (Reason: pain) Rx Instructions: Do not take more than 3000 mg Tylenol in a 24-hour period. cholecalciferol (vitamin D3) 25 mcg (1,000 unit) tablet 25 mcg PO QDAY ascorbic acid (vitamin C) [Vitamin C] 500 mg tablet 500 mg PO QAM magnesium oxide 400 mg (241.3 mg magnesium) tablet 400 mg PO QHS quetiapine 25 mg tablet 25 mg PO DAILY Patient Comments: take one tablet at bedtime for 2 nights, then increase to 2 tablets. Took 1 tablet last night 11/08/24 hydroxyzine HCl 25 mg tablet 25 mg PO QHS PRN PRN (Reason: anxiety) Eliquis 5 mg tablet 5 mg PO BID Qty: 180 4RF Discontinued diltiazem HCl [DILT-XR] 180 mg capsule,ext.rel 24h degradable 180 mg PO QPM ceftriaxone 2 gram recon soln 2 g IV Q24H 40 Days Rx Instructions: stop date 11/24/24. Dx: PJI weekly bmp, cbc, and esr. Fax to [phone]. Routine picc care per protocol. Referrals / Follow Up: Damian Craig MD [Primary Care Provider] - Within 1 Week Hyperbaric Medicine,[facility] and [Non-Staff] - 11/21/24 Disposition Disposition (needs filled in before D/C Order can be placed): Home Health Service Charges/Coding Visit Charges Inpatient E&M: 18780 Disch Hosp >30min
== END 2024-11-15 17:22 | disposition home health service (06) | DRG 853 ==
LOC: ED 20:58 → ICU 22:16 → PCU 11-11 17:06
PROVIDERS: Internal Medicine; Admitting Provider Family Medicine; Emergency Provider Surgery; PCP Family Medicine; Visit Provider Family Medicine
DX: A41.52 Sepsis due to Pseudomonas (principal); E43 Unspecified severe protein-calorie malnutrition; U07.1 COVID-19; M00.861 Arthritis due to other bacteria, right knee; T81.31XA Disruption of external operation (surgical) wound, not elsewhere classified, initial encounter; T84.53XA Infection and inflammatory reaction due to internal right knee prosthesis, initial encounter; D63.8 Anemia in other chronic diseases classified elsewhere; D69.6 Thrombocytopenia, unspecified; I48.0 Paroxysmal atrial fibrillation; I10 Essential (primary) hypertension; F32.A Depression, unspecified; E66.812 Obesity, class 2; E78.5 Hyperlipidemia, unspecified; E87.6 Hypokalemia; F41.9 Anxiety disorder, unspecified; Z87.891 Personal history of nicotine dependence; Z79.01 Long term (current) use of anticoagulants; Z68.35 Body mass index [BMI] 35.0-35.9, adult; R09.02 Hypoxemia; Y79.2 Prosthetic and other implants, materials and accessory orthopedic devices associated with adverse incidents; B95.4 Other streptococcus as the cause of diseases classified elsewhere; Z79.899 Other long term (current) drug therapy; B96.5 Pseudomonas (aeruginosa) (mallei) (pseudomallei) as the cause of diseases classified elsewhere
CPT/HCPCS: 11043; 36415; 36592; 71045; 73562; 80048; 80053; 80202; 81001; 83605; 83735; 84100; 85025; 85027; 85610; 85652; 85730; 87040; 87070; 87075; 87077; 87086; 87184; 87186; 87205; 87631; 87633; 87635; 87640; 89050; 89051; 93005; 93971; 94640; 94668; 97116; 97162; 97166; 97530; 97535; 97802; 97803; 99284; A4216; J2405

== ENCOUNTER → 2024-11-09 | Outpatient (CLI) | payer MEDICARE, OTHER, SELFPAY ==
[2024-11-09 16:21] LABS: Hematocrit 35.7 % (37-47); Hemoglobin 11.4 g/dL (12.0-15.0); Mean Corp Hgb Conc 31.9 g/dL (32-36); Mean Corpuscular Hgb 29.6 pg (27.0-32.0); Mean Corpuscular Volume 92.7 fL (81-99); Mean Platelet Vol. 10.1 fl (6.2-12.0); Platelet Count 161 K/mm3 (150-450); RBC Distribution Width CV 13.5 % (11.6-14.6); RBC Distribution Width SD 45.5 fl (35.1-43.9); Red Blood Count 3.85 M/mm3 (4.2-5.4); White Blood Count 4.4 K/mm3 (4.4-11.0)
[2024-11-09 16:43] LABS: Erythrocyte Sedimentation Rate 42 mm/hr (0-30)
[2024-11-09 17:46] LABS: Anion Gap 7 (5-15); BUN 24 mg/dL (7-18); BUN/Creat Ratio 32.9 RATIO (10-20); Calcium,Total 8.9 mg/dL (8.5-10.1); Chloride 104 mmol/L (98-107); Creatinine, Serum 0.73 mg/dL (0.55-1.02); EST Glomerular Filtration Rate 83 mL/min (>60); Est Glom Filt Rate - Afr Amer 101 mL/min (>60); Glucose 113 mg/dL (74-106); Potassium 3.6 mmol/L (3.5-5.1); Sodium Level 138 mmol/L (136-145)
== END | disposition home or self-care (01) ==
LOC: LABSPEC 12:33
PROVIDERS: PCP Family Medicine; Visit Provider Family Medicine
DX: T84.53XD Infection and inflammatory reaction due to internal right knee prosthesis, subsequent encounter (principal); X58.XXXD Exposure to other specified factors, subsequent encounter
CPT/HCPCS: 80048; 85027; 85652

== ENCOUNTER 2024-11-23 15:16 | Outpatient (RCR) | payer MEDICARE, OTHER, SELFPAY ==
[2024-11-23 19:09] LABS: Absolute Neutrophil Count 4.6 X10^3/uL (2.0-7.7); Basophil# 0.03 X10^3/uL; Basophil% 0.5 % (0-1); Eosinophil# 0.21 X10^3/uL; Eosinophils% 3.5 % (0-5); Hematocrit 34.5 % (37-47); Hemoglobin 10.8 g/dL (12.0-15.0); Mean Corp Hgb Conc 31.3 g/dL (32-36); Mean Corpuscular Hgb 29.3 pg (27.0-32.0); Mean Corpuscular Volume 93.8 fL (81-99); Mean Platelet Vol. 9.8 fl (6.2-12.0); Monocyte# 0.59 X10^3/uL; Monocyte% 9.8 % (0-10); NRBC Flagged by Analyzer 0 % (0-5); Neutrophil # 4.56 X10^3/uL (2.7-7.7); POSITIVE DIFFERENTIAL YES; Platelet Count 235 K/mm3 (150-450); RBC Distribution Width CV 14.8 % (11.6-14.6); RBC Distribution Width SD 50.8 fl (35.1-43.9); Red Blood Count 3.68 M/mm3 (4.2-5.4)
[2024-11-23 19:19] LABS: ALB/GLOB Ratio 0.6 RATIO (0.9-2.4); AST(SGOT) 18 U/L (15-37); Alanine Aminotransfer ALT/SGPT 15 U/L (13-56); Albumin, Serum 2.6 g/dL (3.2-5.0); Alkaline Phosphatase 141 U/L (45-117); Anion Gap 7 (5-15); BUN 14 mg/dL (7-18); BUN/Creat Ratio 33.4 RATIO (10-20); Calcium,Total 8.9 mg/dL (8.5-10.1); Chloride 108 mmol/L (98-107); Creatinine, Serum 0.42 mg/dL (0.55-1.02); EST Glomerular Filtration Rate 158 mL/min (>60); Est Glom Filt Rate - Afr Amer 191 mL/min (>60); Glucose 103 mg/dL (74-106); Potassium 3.4 mmol/L (3.5-5.1); Protein, Total 6.6 g/dL (6.4-8.2); Sodium Level 142 mmol/L (136-145)
[2024-11-23 19:20] LABS: Neutrophil % 75.9 % (47-70)
[2024-11-23 19:22] LABS: Hemoglobin A1c 5.3 % (3.8-5.6)
[2024-11-25 05:07] LABS: Prealbumin 17 mg/dL (9-32)
== END 2024-12-02 23:59 ==
LOC: LABSPEC 15:16
PROVIDERS: PCP Family Medicine; Referring Provider Internal Medicine Infectious Disease; Visit Provider Internal Medicine Infectious Disease
DX: T84.53XD Infection and inflammatory reaction due to internal right knee prosthesis, subsequent encounter (principal)
CPT/HCPCS: 80053; 83036; 84134; 85025

== ENCOUNTER 2024-11-28 15:00 | Outpatient (RCR) | payer MEDICARE, OTHER, SELFPAY ==
[2024-11-05 02:44] VITALS: BP 146/77; PULSE 109; RESP 16; TEMP 36.6; BMI 35.4
[2024-11-07 14:27] VITALS: BP 141/70; PULSE 120; RESP 18; TEMP 36.7; BMI 35.4
--- NOTE | 2024-11-08 07:24 | PN.PCM_ITS ---
History of Present Illness Date of Service: 11/08/24 Chief Complaint: Right knee wound after infected arthroplasty History of Wound: Joselin Diane is a delightful 74-year-old female with past medical history of a right total knee arthroplasty in February 2024 who presented back to her arthroplasty surgeon Dr. Velásquez with an acute pyogenic right total knee infection earlier this month in October 2024 and was taken back to the operating room on 13 October 2024 for irrigation/debridement with complete synovectomy and a polyethylene exchange of the right knee. Per operative report, the joint was closed with layered 1-0 Vicryl interrupted sutures and the subcuticular layer was closed with 2-0 interrupted Vicryl sutures followed by isabella for the final skin closure. The patient was placed on IV antibiotics by infectious disease, as her cultures grew Streptococcus group G (currently on ceftriaxone per infectious disease consultation). She followed up with Dr. Velásquez in clinic and had some drainage and wound healing issues from the distal portions of the incision and at some point nylon stitches were used to bridge the gap and keep the wound together (isabella are out on exam today). Today she denies any fevers chills or any significant drainage. Of note the patient has atrial fibrillation and is chronically anticoagulated on Eliquis and also takes diltiazem for rate control and blood pressure. She is not a smoker. No history of diabetes. No personal or family history of bleeding or clotting problems or problems with anesthesia. Subjective Subjective Current encounter, 08 November 2024: Patient tolerating antibiotic course and tolerating the wound VAC. No fevers or chills Objective Data Objective Data Vital Signs: Vital Signs Temp Pulse Resp BP O2 Del Method 98.1 F 120 H 18 141/70 H Room Air 11/07/24 14:27 11/07/24 14:27 11/07/24 14:27 11/07/24 14:27 11/07/24 14:27 Oxygen Delivery Method Room Air Weight: 200 lb Body Mass Index (BMI) 35.4 Charges/Coding Procedures Integumentary 111xxx-113xx: 05089 Rosy musc/fascia 20 sq cm/< Physical Exam Narrative Right upper extremity Inspection: No varicosities or swelling or skin changes on the right lower extremity. Wound: Measures 5.3 x 1.2 cm Dehiscence of the distal aspect of the right knee surgical incision. No mala purulence or fluid collections at this time. No exposed hardware. Fibrinous exudate and debris in the area of dehiscence. Superior nylon suture removed and some necrotic debris at the base of the wound which was excised today, but overall improved granulation with the VAC. Vascular: 2+ dorsalis pedis and posterior tibial pulses Sensation: Sensation to light touch intact throughout the foot and ankle. Debridement Note Debridement Note Wound debrided: Right knee wound Laterality: Right Type of Debridement: Excisional debridement Anesthesia Used: 4% Lidocaine Solution Depth: Down to and including healthy tissue (Fascia) Percentage of wound debrided: 100 Instrument Used: 7mm curette Severity: Necrosis of Muscle (Fascia but no muscle) Amount of bleeding with debridement: Mild Bleeding Controlled with: Compression and gauze Patient tolerated procedure: Patient tolerated procedure well Post-Debridement Measurements and Additional Note: Post-Debridement Measurements/Treatment WC - Nurse 1 - General Ulcer Assessment Start: 11/07/24 14:27 Freq: Status: Active Protocol: [email or web address] Activity Type Activity Date Activity User E-sign Co-sign Detail Recorded Client Recorded Date Recorded By Document 11/07/24 14:27 [id number] 11/07/24 14:34 KW 11/07/24 14:27 WC - Today's Visit Information Type of service Follow-up Visit (Physician/ICU REGISTERED NURSE ) Arrival Mode Ambulatory,Cane Accompanied by family Patient Identification Verified (Name & Yes ) Height and Weight Body Mass Index (BMI) 35.4 BMI Classification Obese Vital Signs Temperature (97.8 F-99.1 F) 98.1 F Temperature Source Temporal Pulse Rate (60-100) 120 H Pulse Location Monitor Respiratory Rate (12-18) 18 Respiratory rate source Observation Oxygen Delivery Method Room Air Blood Pressure (90/60-120/80) 141/70 H Blood Pressure Mean (mm Hg) 93 Source Monitor Position Semi-Fowlers Blood Pressure Location Left Arm History Since Last Visit- (Skip if this is Patient's initial visit) Have you changed medications since your No last visit? Any new allergies or adverse reactions No Had a fall/change in ADL's that may No increase risk of falls Signs or symptoms of abuse and/or No neglect since last visit Have you been in the hospital since your No last visit? Has dressing in place as prescribed Yes Has compression in place as prescribed Yes Has offloadiing in place as prescribed N/A Experienced any changes in pain level or No management Left Footwear Regular Shoe Right Footwear Regular Shoe Pain Scale: 0-10 Numeric Is Patient Pain Free? Yes - Nurse 1 - General Ulcer Measurement Start: 11/07/24 14:27 Freq: Status: Active Protocol: Activity Type Activity Date Activity User E-sign Co-sign Detail Recorded Client Recorded Date Recorded By Document 11/07/24 14:27 REEMA [id number] 11/07/24 14:34 REEMA 11/07/24 14:27 Wound Center Nurse 1 #1- R KNEE INCISION POST OP -Current Size (cm) - Length 5 -Current Size (cm) - Width 0.5 -Current Size (cm) - Depth 0.5 -Total Square Cm 2.5 -Exudate Amt Medium -Exudate Type Serosanguineous -Wound Margin Distinct, Outline Attached -Granulation Amt Large (67-100%) -Granulation Quality [place],Red -Texture (Nancy-wound Skin Appearance) Assessed -Moisture (Nancy-wound Skin Appearance) Assessed -Color (Nancy-wound Skin Appearance) Assessed -Temperature (Nancy-wound Skin No Abnormality Appearance) (Pt Warm) -Tenderness on Palpation (Nancy-wound No Skin Appearance) -Ulcer Cleansing Soap and Water -Foul Odor after Cleansing No -Anesthetic Used 4% Lidocaine Solution - Nurse 2 - General Ulcer CM Notes Start: 11/07/24 14:27 Freq: Status: Active Protocol: Activity Type Activity Date Activity User E-sign Co-sign Detail Recorded Client Recorded Date Recorded By Document 11/07/24 14:38 FAUSTINO [id number] 11/07/24 14:53 FAUSTINO 11/07/24 14:38 Wound Center Nurse 2 -Time 14:39 -Correct Patient Yes -Correct Side, Site, Position Yes -Correct Procedure Yes -Procedure Performed Yes -Type of Procedure Debridement -Clinical Debridement Muscle / Fascia -Tissue Removed Muscle -Post Debridement (cm) - Length 5.3 -Post Debridement (cm) - Width 1.2 -Post Debridement (cm) - Depth 1.4 -Total Square (Post) (cm) 6.36 -Area of Debridement (cm) - Length 5.3 -Area of Debridement (cm) - Width 1.2 -Total Square (Area) (cm) 6.36 -Tunneling No -Undermining/Tunneling No -Circular Undermining No -Wound/Ulcer Outcome Not Healed -Ulcer Cleansing Rinsed/ Irrigated with Saline -Foul Odor after Cleansing No -Bioengineered Tissue No -Bleeding Controlled with Pressure -Treatment Response Procedure Tolerated Well -Offloading No -Debridement - Muscle / Fascia, 1st Yes 20sq cm Pain Scale: 0-10 Numeric Is Patient Pain Free? Yes - Nurse 3 - General Ulcer D/C NN Start: 11/07/24 14:27 Freq: Status: Active Protocol: Activity Type Activity Date Activity User E-sign Co-sign Detail Recorded Client Recorded Date Recorded By Document 11/07/24 15:13 [facility] [id number] 11/07/24 15:13 [facility] 11/07/24 15:13 Wound Care Center Nurse 3 #1- R KNEE INCISION POST OP -Ulcer Cleansing Rinsed/ Irrigated with Saline -Foul Odor after Cleansing No -Negative Pressure Wound Therapy Continue -Setting (mmHg) 125 -Negative Pressure is Continuous -NPWT Application Charge NPWT & Debridement (nc ) Treatment Response Procedure Tolerated Well Pain Scale: 0-10 Numeric Is Patient Pain Free? Yes WC - Visit Discharge Discharge Condition Stable Ambulatory Status Ambulatory Transportation Private Auto Accompanied by and daughter Facility Type Home Health Assessment/Plan Assessment/Plan (1) Infection of prosthetic right knee joint: CODE(S): T84.53XA - Infection and inflammatory reaction due to internal right knee prosthesis, initial encounter PLAN: I talked the patient extensively about concern for soft tissue coverage. I talked to Dr. Velásquez also about his concerns. Following debridement of the tissue today, I think it is appropriate to attempt wound VAC to improve granulation and attempt to bridge the area of dehiscence. Patient was informed of risks, benefits, and alternatives to this treatment. We also talked about potential need for flap coverage to improve soft tissue overlying the knee prosthesis, which could possibly be our next option if there is further demarcation of the tissue and need for further debridement in the operating room. I will reassess the wound on Thursday, 07 November 2024 (next week), after initiation of the wound VAC. Flap option would be a medial gastrocnemius. Patient happy with the plan at this time. Dr. Velásquez happy with the plan. The patient will continue twice daily wet-to-dry dressings until she gets the wound VAC. Plan from 07 November 2024: Continue wound VAC therapy 3 times per week changes. I discussed with the patient and her family my concern for soft tissue coverage over the knee, and that we may have and eventually need a debridement and gastrocnemius flap. I talked to them about the risks, benefits, and alternatives to continued wound VAC therapy versus OR debridement and eventual flap reconstruction at this time. They elected to continue wound VAC therapy for now and reevaluate the wound next week in clinic. I talked to Dr. Velásquez who is the orthopedist, and he was in agreement with this plan at this time. Plan for plastics to follow closely.
[2024-11-21 13:21] VITALS: BP 134/64; PULSE 92; RESP 16; TEMP 36.4; BMI 35.4
--- NOTE | 2024-11-21 16:13 | NURSING ---
PHOTO 11/21/24 Right Knee
--- NOTE | 2024-11-21 16:54 | PCM.WC.PN ---
History of Present Illness Date of Service: 11/21/24 Chief Complaint: Right knee wound after infected arthroplasty History of Wound: HPI from 01 Nov 2024: Joselin Diane is a delightful 74-year-old female with past medical history of a right total knee arthroplasty in February 2024 who presented back to her arthroplasty surgeon Dr. Velásquez with an acute pyogenic right total knee infection earlier this month in October 2024 and was taken back to the operating room on 13 October 2024 for irrigation/debridement with complete synovectomy and a polyethylene exchange of the right knee. Per operative report, the joint was closed with layered 1-0 Vicryl interrupted sutures and the subcuticular layer was closed with 2-0 interrupted Vicryl sutures followed by isabella for the final skin closure. The patient was placed on IV antibiotics by infectious disease, as her cultures grew Streptococcus group G (currently on ceftriaxone per infectious disease consultation). She followed up with Dr. Velásquez in clinic and had some drainage and wound healing issues from the distal portions of the incision and at some point nylon stitches were used to bridge the gap and keep the wound together (isabella are out on exam today). Today she denies any fevers chills or any significant drainage. Of note the patient has atrial fibrillation and is chronically anticoagulated on Eliquis and also takes diltiazem for rate control and blood pressure. She is not a smoker. No history of diabetes. No personal or family history of bleeding or clotting problems or problems with anesthesia. Interval events following initial consultation: Patient was admitted to the hospital on 10 November 2024 for fevers and chills (was determined to be possibly secondary to COVID as she was having shortness of breath as well). The wound was examined and looked about the same as it did in clinic earlier in the week (no signs of mala pus or drainage from the joint). The joint was aspirated as there was concern for infection around the arthroplasty. Aspiration was negative for growth x 5 days and the decision was made by the arthroplasty surgeon to continue current treatment plan with plastics using wound VAC for superficial wound. Patient was discharged on continued cefepime per infectious disease as well as 3 times per week VAC changes and follow-up in the wound care center. Subjective Subjective CURRENT ENCOUNTER, 21 NOV 2024: Patient here today for follow-up. Denies any fevers chills or worsening of pain. Objective Data Objective Data Vital Signs: Vital Signs Temp Pulse Resp BP O2 Del Method 97.6 F L 92 16 134/64 H Room Air 11/21/24 13:21 11/21/24 13:21 11/21/24 13:21 11/21/24 13:21 11/21/24 13:21 Oxygen Delivery Method Room Air Weight: 200 lb Body Mass Index (BMI) 35.4 Charges/Coding Procedures Integumentary 111xxx-113xx: [id number] Rosy musc/fascia 20 sq cm/< Physical Exam Narrative Right lower extremity: Wound VAC removed to examine wound Wound measured 5.9 x 2.7 No draining sinuses, no purulent drainage coming from the joint, no exposed critical structures (no hardware). The wound is deeper today however and appears to be evolving. There was some fibrinous exudate at the base. There is exposed tendon and potentially some tibial plateau at the base. 2+DP and PT pulses Const alert, oriented x3 and no apparent distress General Appearance: cooperative Resp normal respiratory effort Extremity Extremity Narrative: No calf swelling Debridement Note Debridement Note Laterality: Right Type of Debridement: Excisional debridement Anesthesia Used: 4% Lidocaine Solution Depth: Down to and including healthy tissue and to muscle (to fascia ) Percentage of wound debrided: 100 Instrument Used: 7mm curette Severity: Necrosis of Muscle (fascia ) Amount of bleeding with debridement: Mild Bleeding Controlled with: Pressure Patient tolerated procedure: Patient tolerated procedure well Post-Debridement Measurements and Additional Note: Post-Debridement Measurements/Treatment - Nurse 1 - General Ulcer Assessment Start: 11/07/24 14:27 Freq: Status: Active Protocol: ABILIO Activity Type Activity Date Activity User E-sign Co-sign Detail Recorded Client Recorded Date Recorded By Document 11/07/24 14:27 [id number] 11/07/24 14:34 KW Document 11/21/24 13:21 [facility] [id number] 11/21/24 13:32 [facility] 11/07/24 11/21/24 14:27 13:21 - Today's Visit Information Type of service Follow-up Visit Follow-up Visit (Physician/TANK STORAGE SUPERVISOR (Physician/TANK STORAGE SUPERVISOR ) ) Arrival Mode Ambulatory,Cane Ambulatory,Cane Transfer Assistance None Accompanied by family Patient Identification Verified (Name & Yes Yes ) Patient Requires Transmission-Based No Precautions Height and Weight Body Mass Index (BMI) 35.4 35.4 BMI Classification Obese Obese Vital Signs Temperature (97.8 F-99.1 F) 98.1 F 97.6 F L Temperature Source Temporal Temporal Pulse Rate (60-100) 120 H 92 Pulse Location Monitor Monitor Respiratory Rate (12-18) 18 16 Respiratory rate source Observation Observation Oxygen Delivery Method Room Air Room Air Blood Pressure (90/60-120/80) 141/70 H 134/64 H Blood Pressure Mean (mm Hg) 93 87 Source Monitor Monitor Position Semi-Fowlers Sitting Blood Pressure Location Left Arm Left Arm History Since Last Visit- (Skip if this is Patient's initial visit) Have you changed medications since your No No last visit? Any new allergies or adverse reactions No No Had a fall/change in ADL's that may No No increase risk of falls Signs or symptoms of abuse and/or No No neglect since last visit Have you been in the hospital since your No Yes last visit? Has dressing in place as prescribed Yes Yes Has compression in place as prescribed Yes N/A Has offloadiing in place as prescribed N/A N/A Experienced any changes in pain level or No No management Left Footwear Regular Shoe Regular Shoe Right Footwear Regular Shoe Regular Shoe Pain Scale: 0-10 Numeric Is Patient Pain Free? Yes Yes WC - Nurse 1 - General Ulcer Measurement Start: 11/07/24 14:27 Freq: Status: Active Protocol: Activity Type Activity Date Activity User E-sign Co-sign Detail Recorded Client Recorded Date Recorded By Document 11/07/24 14:27 [id number] 11/07/24 14:34 KW Document 11/21/24 13:21 [facility] [id number] 11/21/24 13:32 [facility] 11/07/24 11/21/24 14:27 13:21 Wound Center Nurse 1 #1- R KNEE INCISION POST OP -Combined with other wound No -Current Size (cm) - Length 5 4.3 -Current Size (cm) - Width 0.5 2.3 -Current Size (cm) - Depth 0.5 0.1 -Total Square Cm 2.5 9.89 -Date of Last Picture (Recall this 11/21/24 field) -Photo Taken Yes -Epithelialization Small 1-33% -Tunneling Yes -Tunneling Position (O'clock) 4 -Tunneling Distance (cm) 2.4 -Undermining/Tunneling No -Circular Undermining No -Exudate Amt Medium Medium -Exudate Type Serosanguineous Serosanguineous -Wound Margin Distinct, Distinct, Outline Outline Attached Attached -Granulation Amt Large (67-100%) Small (1-33%) -Granulation Quality [place],Red Red -Slough/Fibrin Yes -Necrosis Amt Large (67-100%) -Necrotic Tissue Type Adherent Slough -Texture (Nancy-wound Skin Appearance) Assessed Assessed, Localized Edema ,Scarring -Moisture (Nancy-wound Skin Appearance) Assessed Assessed -Color (Nancy-wound Skin Appearance) Assessed Assessed -Temperature (Nancy-wound Skin No Abnormality No Abnormality Appearance) (Pt Warm) (Pt Warm) -Tenderness on Palpation (Nancy-wound No No Skin Appearance) -Ulcer Cleansing Soap and Water Soap and Water -Foul Odor after Cleansing No No -Anesthetic Used 4% Lidocaine 5% Lidocaine Solution Gel -Wound Comment(s) knee appears swollen WC - Nurse 2 - General Ulcer CM Notes Start: 11/07/24 14:27 Freq: Status: Active Protocol: Activity Type Activity Date Activity User E-sign Co-sign Detail Recorded Client Recorded Date Recorded By Document 11/07/24 14:38 [id number] 11/07/24 14:53 Document 11/21/24 14:12 [id number] 11/21/24 14:15 11/07/24 11/21/24 14:38 14:12 Wound Center Nurse 2 #1- R KNEE INCISION POST OP -Time 14:39 14:12 -Correct Patient Yes Yes -Correct Side, Site, Position Yes Yes -Correct Procedure Yes Yes -Procedure Performed Yes Yes -Type of Procedure Debridement Debridement -Clinical Debridement Muscle / Fascia Muscle / Fascia -Tissue Removed Muscle Muscle -Post Debridement (cm) - Length 5.3 5.9 -Post Debridement (cm) - Width 1.2 2.7 -Post Debridement (cm) - Depth 1.4 2.1 -Total Square (Post) (cm) 6.36 15.93 -Area of Debridement (cm) - Length 5.3 5.9 -Area of Debridement (cm) - Width 1.2 2.7 -Total Square (Area) (cm) 6.36 15.93 -Tunneling No No -Undermining/Tunneling No No -Circular Undermining No No -Wound/Ulcer Outcome Not Healed Not Healed -Ulcer Cleansing Rinsed/ Rinsed/ Irrigated with Irrigated with Saline Saline -Foul Odor after Cleansing No No -Bioengineered Tissue No No -Bleeding Controlled with Pressure Pressure -Treatment Response Procedure Procedure Tolerated Well Tolerated Well -Offloading No No -Debridement - Muscle / Fascia, 1st Yes Yes 20sq cm Pain Scale: 0-10 Numeric Is Patient Pain Free? Yes Yes WC - Nurse 3 - General Ulcer D/C NN Start: 11/07/24 14:27 Freq: Status: Active Protocol: Activity Type Activity Date Activity User E-sign Co-sign Detail Recorded Client Recorded Date Recorded By Document 11/07/24 15:13 BMF [id number] 11/07/24 15:13 BMF Document 11/21/24 14:48 DL [id number] 11/21/24 14:49 DL 11/07/24 11/21/24 15:13 14:48 Wound Care Center Nurse 3 #1- R KNEE INCISION POST OP -Ulcer Cleansing Rinsed/ Soap and Water Irrigated with Saline -Foul Odor after Cleansing No No -Negative Pressure Wound Therapy Continue Continue -Setting (mmHg) 125 125 -Negative Pressure is Continuous Continuous -NPWT Application Charge NPWT & NPWT & Debridement (nc Debridement (nc ) ) Treatment Response Procedure Procedure Tolerated Well Tolerated Well Pain Scale: 0-10 Numeric Is Patient Pain Free? Yes Yes WC - Visit Discharge Discharge Condition Stable Stable Ambulatory Status Ambulatory Ambulatory Transportation Private Auto Private Auto Accompanied by and daughter Facility Type Home Health Home Health Orders Sent Yes Assessment/Plan Assessment/Plan (1) Infection of prosthetic right knee joint: CODE(S): T84.53XA - Infection and inflammatory reaction due to internal right knee prosthesis, initial encounter PLAN: Plan from 01 Nov 2024: I talked the patient extensively about concern for soft tissue coverage. I talked to Dr. Velásquez also about his concerns. Following debridement of the tissue today, I think it is appropriate to attempt wound VAC to improve granulation and attempt to bridge the area of dehiscence. Patient was informed of risks, benefits, and alternatives to this treatment. We also talked about potential need for flap coverage to improve soft tissue overlying the knee prosthesis, which could possibly be our next option if there is further demarcation of the tissue and need for further debridement in the operating room. I will reassess the wound on Thursday, 07 November 2024 (next week), after initiation of the wound VAC. Flap option would be a medial gastrocnemius. Patient happy with the plan at this time. Dr. Velásquez happy with the plan. The patient will continue twice daily wet-to-dry dressings until she gets the wound VAC. Plan from 07 November 2024: Continue wound VAC therapy 3 times per week changes. I discussed with the patient and her family my concern for soft tissue coverage over the knee, and that we may have and eventually need a debridement and gastrocnemius flap. I talked to them about the risks, benefits, and alternatives to continued wound VAC therapy versus OR debridement and eventual flap reconstruction at this time. They elected to continue wound VAC therapy for now and reevaluate the wound next week in clinic. I talked to Dr. Velásquez who is the orthopedist, and he was in agreement with this plan at this time. Plan for plastics to follow closely. Plan from 21 Nov 2024: Wound is evolving and appears significantly deeper. Given that we are in clinic setting today, unable to examine wound base. Immediately discussed with Dr. Velásquez the arthroplasty surgeon. Given our exam of the wound today with the wound VAC off, he would like to washout the knee and do a polyethylene exchange. At that time I will perform a medial gastrocnemius flap and skin graft for coverage. I talked to the patient extensively about the risks, benefits, and alternatives to reconstruction with a medial gastrocnemius flap. We talked about options of continued wound VAC therapy and conservative management, with the risk of further worsening of the periprosthetic infection. I talked her about the risks of flap failure and the need for repeat procedures including debridement or subsequent reconstructions. I talked to her about weakness of plantarflexion. I talked her about damage to surrounding structures including nerves, muscles, tendons and vasculature. I talked her about the risks of wound healing problems and needs for wound care. We talked about bleeding and infection. Furthermore I talked to her about the risks of general anesthesia including DVT/PE, as well as stroke from either ischemia or hypovolemia/hypotension. I also talked to her about the risks of being off her blood thinner (we discussed being off the blood thinner for 48 hours before surgery) as she has atrial fibrillation. After thorough discussion of the risks and benefits of surgery, she elected to proceed with reconstruction using a medial gastrocnemius flap. Dr. Velásquez and I will coordinate our schedules and plastics will be available for reconstruction after the debridement/synovectomy and polyethylene exchange. For now, wound VAC changes 3 times per week.
[2024-11-28 14:43] VITALS: BP 107/53; PULSE 115; RESP 20; TEMP 36.1; BMI 35.4
--- NOTE | 2024-11-29 06:13 | PN.PCM_ITS ---
History of Present Illness Date of Service: 11/28/24 Chief Complaint: Right knee wound after infected arthroplasty History of Wound: HPI from 01 Nov 2024: Joselin Diane is a delightful 74-year-old female with past medical history of a right total knee arthroplasty in February 2024 who presented back to her arthroplasty surgeon Dr. Velásquez with an acute pyogenic right total knee infection earlier this month in October 2024 and was taken back to the operating room on 13 October 2024 for irrigation/debridement with complete synovectomy and a polyethylene exchange of the right knee. Per operative report, the joint was closed with layered 1-0 Vicryl interrupted sutures and the subcuticular layer was closed with 2-0 interrupted Vicryl sutures followed by isabella for the final skin closure. The patient was placed on IV antibiotics by infectious disease, as her cultures grew Streptococcus group G (currently on ceftriaxone per infectious disease consultation). She followed up with Dr. Velásquez in clinic and had some drainage and wound healing issues from the distal portions of the incision and at some point nylon stitches were used to bridge the gap and keep the wound together (isabella are out on exam today). Today she denies any fevers chills or any significant drainage. Of note the patient has atrial fibrillation and is chronically anticoagulated on Eliquis and also takes diltiazem for rate control and blood pressure. She is not a smoker. No history of diabetes. No personal or family history of bleeding or clotting problems or problems with anesthesia. Interval events following initial consultation: Patient was admitted to the hospital on 10 November 2024 for fevers and chills (was determined to be possibly secondary to COVID as she was having shortness of breath as well). The wound was examined and looked about the same as it did in clinic earlier in the week (no signs of mala pus or drainage from the joint). The joint was aspirated as there was concern for infection around the arthroplasty. Aspiration was negative for growth x 5 days and the decision was made by the arthroplasty surgeon to continue current treatment plan with plastics using wound VAC for superficial wound. Patient was discharged on continued cefepime per infectious disease as well as 3 times per week VAC changes and follow-up in the wound care center. Subjective Subjective 21 NOV 2024: Patient here today for follow-up. Denies any fevers chills or worsening of pain. CURRENT ENCOUNTER, 28 Nov 2024: Tolerating VAC changes. Discussed upcoming surgery extensively today at our visit with the patient and her family. Patient holding her blood thinner today in anticipation for surgery (for her atrial fibrillation). Objective Data Objective Data Vital Signs: Vital Signs Temp Pulse Resp BP O2 Del Method 96.9 F L 115 H 20 H 107/53 L Room Air 11/28/24 14:43 11/28/24 14:43 11/28/24 14:43 11/28/24 14:43 11/21/24 13:21 Oxygen Delivery Method Room Air Weight: 200 lb Body Mass Index (BMI) 35.4 Charges/Coding Procedures Integumentary 111xxx-113xx: [id number] Rosy subq tissue 20 sq cm/< Physical Exam Narrative Right lower extremity: Wound VAC removed to examine wound Wound measured 4.5 x 2.6 and tunnels 2.5 cm down to bone and fascia. Good granulation tissue from laterally. But medial portions of the wound still deep and tunneling. No draining sinuses, no purulent drainage coming from the joint. There was some fibrinous exudate at the base. 2+DP and PT pulses Const alert, oriented x3 and no apparent distress General Appearance: cooperative Resp normal respiratory effort Extremity Extremity Narrative: No calf swelling Debridement Note Debridement Note Wound debrided: Knee wound Laterality: Right Wound Grade/Stage: 3 Type of Debridement: Excisional debridement Anesthesia Used: 4% Lidocaine Solution Depth: in the subcutaneous layer Percentage of wound debrided: 50 and - (This was a limited debridement as we did not want to spread colonization or infection deeper) Instrument Used: 7mm curette Tissue Removed: Biofilm and granulation at the top of the wound for the VAC change Severity: Necrosis of Muscle Bleeding Controlled with: Pressure Patient tolerated procedure: Patient tolerated procedure well Post-Debridement Measurements and Additional Note: Post-Debridement Measurements/Treatment BLACK - Nurse 1 - General Ulcer Assessment Start: 11/07/24 14:27 Freq: Status: Active Protocol: ABILIO Activity Type Activity Date Activity User E-sign Co-sign Detail Recorded Client Recorded Date Recorded By Document 11/07/24 14:27 KW [id number] 11/07/24 14:34 KW Document 11/21/24 13:21 BMF [id number] 11/21/24 13:32 BMF Document 11/28/24 14:43 DL [id number] 11/28/24 14:56 DL 11/07/24 11/21/24 11/28/24 14:27 13:21 14:43 WC - Today's Visit Information Type of service Follow-up Visit Follow-up Visit Follow-up Visit (Physician/HUMAN RESOURCES MANAGER (Physician/HUMAN RESOURCES MANAGER (Physician/HUMAN RESOURCES MANAGER ) ) ) Arrival Mode Ambulatory,Cane Ambulatory,Cane Ambulatory Transfer Assistance None None Accompanied by family Patient Identification Verified (Name & Yes Yes Yes ) Patient Requires Transmission-Based No No Precautions Height and Weight Body Mass Index (BMI) 35.4 35.4 35.4 BMI Classification Obese Obese Obese Vital Signs Temperature (97.8 F-99.1 F) 98.1 F 97.6 F L 96.9 F L Temperature Source Temporal Temporal Temporal Pulse Rate (60-100) 120 H 92 115 H Pulse Location Monitor Monitor Monitor Respiratory Rate (12-18) 18 16 20 H Respiratory rate source Observation Observation Observation Oxygen Delivery Method Room Air Room Air Blood Pressure (90/60-120/80) 141/70 H 134/64 H 107/53 L Blood Pressure Mean (mm Hg) 93 87 71 Source Monitor Monitor Monitor Position Semi-Fowlers Sitting Blood Pressure Location Left Arm Left Arm History Since Last Visit- (Skip if this is Patient's initial visit) Have you changed medications since your No No No last visit? Any new allergies or adverse reactions No No No Had a fall/change in ADL's that may No No No increase risk of falls Signs or symptoms of abuse and/or No No No neglect since last visit Have you been in the hospital since your No Yes No last visit? Has dressing in place as prescribed Yes Yes No Has compression in place as prescribed Yes N/A Yes Has offloadiing in place as prescribed N/A N/A Yes Experienced any changes in pain level or No No No management Left Footwear Regular Shoe Regular Shoe Right Footwear Regular Shoe Regular Shoe Pain Scale: 0-10 Numeric Is Patient Pain Free? Yes Yes Yes - Nurse 1 - General Ulcer Measurement Start: 11/07/24 14:27 Freq: Status: Active Protocol: Activity Type Activity Date Activity User E-sign Co-sign Detail Recorded Client Recorded Date Recorded By Document 11/07/24 14:27 KW [id number] 11/07/24 14:34 KW Document 11/21/24 13:21 BMF [id number] 11/21/24 13:32 [facility] Document 11/28/24 14:43 DL [id number] 11/28/24 14:56 DL 11/07/24 11/21/24 11/28/24 14:27 13:21 14:43 Wound Center Nurse 1 #1- R KNEE INCISION POST OP -Combined with other wound No -Current Size (cm) - Length 5 4.3 4.5 -Current Size (cm) - Width 0.5 2.3 2.6 -Current Size (cm) - Depth 0.5 0.1 2 -Total Square Cm 2.5 9.89 11.70 -Date of Last Picture (Recall this 11/21/24 field) -Photo Taken Yes -Epithelialization Small 1-33% -Tunneling Yes -Tunneling Position (O'clock) 4 -Tunneling Distance (cm) 2.4 -Undermining/Tunneling No -Circular Undermining No -Exudate Amt Medium Medium Medium -Exudate Type Serosanguineous Serosanguineous Serosanguineous -Wound Margin Distinct, Distinct, Distinct, Outline Outline Outline Attached Attached Attached -Granulation Amt Large (67-100%) Small (1-33%) Large (67-100%) -Granulation Quality [place],Red Red Red -Slough/Fibrin Yes -Necrosis Amt Large (67-100%) Small (1-33%) -Necrotic Tissue Type Adherent Slough Adherent Slough -Structure Exposed N/A -Texture (Anncy-wound Skin Appearance) Assessed Assessed, Scarring Localized Edema ,Scarring -Moisture (Nancy-wound Skin Appearance) Assessed Assessed No Abnormality -Color (Nancy-wound Skin Appearance) Assessed Assessed No Abnormality -Temperature (Nancy-wound Skin No Abnormality No Abnormality No Abnormality Appearance) (Pt Warm) (Pt Warm) (Pt Warm) -Tenderness on Palpation (Nancy-wound No No No Skin Appearance) -Ulcer Cleansing Soap and Water Soap and Water Soap and Water -Foul Odor after Cleansing No No No -Anesthetic Used 4% Lidocaine 5% Lidocaine 4% Lidocaine Solution Gel Solution -Wound Comment(s) knee appears swollen WC - Nurse 2 - General Ulcer CM Notes Start: 11/07/24 14:27 Freq: Status: Active Protocol: Activity Type Activity Date Activity User E-sign Co-sign Detail Recorded Client Recorded Date Recorded By Document 11/07/24 14:38 [id number] 11/07/24 14:53 Document 11/21/24 14:12 [id number] 11/21/24 14:15 Document 11/28/24 15:31 [id number] 11/28/24 15:33 11/07/24 11/21/24 11/28/24 14:38 14:12 15:31 Wound Center Nurse 2 #1- R KNEE INCISION POST OP -Time 14:39 14:12 15:32 -Correct Patient Yes Yes Yes -Correct Side, Site, Position Yes Yes Yes -Correct Procedure Yes Yes Yes -Procedure Performed Yes Yes Yes -Type of Procedure Debridement Debridement Debridement -Clinical Debridement Muscle / Fascia Muscle / Fascia Muscle / Fascia -Tissue Removed Muscle Muscle Muscle -Post Debridement (cm) - Length 5.3 5.9 4.5 -Post Debridement (cm) - Width 1.2 2.7 2.7 -Post Debridement (cm) - Depth 1.4 2.1 2.0 -Total Square (Post) (cm) 6.36 15.93 12.15 -Area of Debridement (cm) - Length 5.3 5.9 4.5 -Area of Debridement (cm) - Width 1.2 2.7 2.7 -Total Square (Area) (cm) 6.36 15.93 12.15 -Tunneling No No No -Undermining/Tunneling No No No -Circular Undermining No No No -Wound/Ulcer Outcome Not Healed Not Healed Not Healed -Ulcer Cleansing Rinsed/ Rinsed/ Rinsed/ Irrigated with Irrigated with Irrigated with Saline Saline Saline -Foul Odor after Cleansing No No No -Bioengineered Tissue No No No -Bleeding Controlled with Pressure Pressure Pressure -Treatment Response Procedure Procedure Procedure Tolerated Well Tolerated Well Tolerated Well -Offloading No No No -Debridement - Muscle / Fascia, 1st Yes Yes Yes 20sq cm Pain Scale: 0-10 Numeric Is Patient Pain Free? Yes Yes Yes - Nurse 3 - General Ulcer D/C NN Start: 11/07/24 14:27 Freq: Status: Active Protocol: Activity Type Activity Date Activity User E-sign Co-sign Detail Recorded Client Recorded Date Recorded By Document 11/07/24 15:13 [facility] [id number] 11/07/24 15:13 [facility] Document 11/21/24 14:48 DL [id number] 11/21/24 14:49 DL Document 11/28/24 15:51 DL [id number] 11/28/24 15:54 DL 11/07/24 11/21/24 11/28/24 15:13 14:48 15:51 Wound Care Center Nurse 3 #1- R KNEE INCISION POST OP -Ulcer Cleansing Rinsed/ Soap and Water Irrigated with Saline -Foul Odor after Cleansing No No -Negative Pressure Wound Therapy Continue Continue -Setting (mmHg) 125 125 -Negative Pressure is Continuous Continuous -NPWT Application Charge NPWT & NPWT & Debridement (nc Debridement (nc ) ) Treatment Response Procedure Procedure Tolerated Well Tolerated Well Pain Scale: 0-10 Numeric Is Patient Pain Free? Yes Yes Yes WC - Visit Discharge Discharge Condition Stable Stable Stable Ambulatory Status Ambulatory Ambulatory Ambulatory Transportation Private Auto Private Auto Private Auto Accompanied by and daughter Facility Type Home Health Home Health Home Health Orders Sent Yes Yes #1- R KNEE INCISION POST OP -Ulcer Cleansing Soap and Water -Foul Odor after Cleansing No -Negative Pressure Wound Therapy Continue -Pieces of White Foam Inserted 125 -NPWT Application Charge NPWT & Debridement (nc ) -Foam Supply Charges Black Foam Large -Black Foam, Large 1 -Negative Pressure is Continuous -Regranex (If Applicable) Continue -Wound Comment(s) Dressing applied today per Kenna. Treatment Response Procedure Tolerated Well Assessment/Plan Assessment/Plan (1) Infection of prosthetic right knee joint: CODE(S): T84.53XA - Infection and inflammatory reaction due to internal right knee prosthesis, initial encounter PLAN: Plan from 01 Nov 2024: I talked the patient extensively about concern for soft tissue coverage. I talked to Dr. Velásquez also about his concerns. Following debridement of the tissue today, I think it is appropriate to attempt wound VAC to improve granulation and attempt to bridge the area of dehiscence. Patient was informed of risks, benefits, and alternatives to this treatment. We also talked about potential need for flap coverage to improve soft tissue overlying the knee prosthesis, which could possibly be our next option if there is further demarcation of the tissue and need for further debridement in the operating room. I will reassess the wound on Thursday, 07 November 2024 (next week), after initiation of the wound VAC. Flap option would be a medial gastrocnemius. Patient happy with the plan at this time. Dr. Velásquez happy with the plan. The patient will continue twice daily wet-to-dry dressings until she gets the wound VAC. Plan from 07 November 2024: Continue wound VAC therapy 3 times per week changes. I discussed with the patient and her family my concern for soft tissue coverage over the knee, and that we may have and eventually need a debridement and gastrocnemius flap. I talked to them about the risks, benefits, and alternatives to continued wound VAC therapy versus OR debridement and eventual flap reconstruction at this time. They elected to continue wound VAC therapy for now and reevaluate the wound next week in clinic. I talked to Dr. Velásquez who is the orthopedist, and he was in agreement with this plan at this time. Plan for plastics to follow closely. Plan from 21 Nov 2024: Wound is evolving and appears significantly deeper. Given that we are in clinic setting today, unable to examine wound base. Immediately discussed with Dr. Velásquez the arthroplasty surgeon. Given our exam of the wound today with the wound VAC off, he would like to washout the knee and do a polyethylene exchange. At that time I will perform a medial gastrocnemius flap and skin graft for coverage. I talked to the patient extensively about the risks, benefits, and alternatives to reconstruction with a medial gastrocnemius flap. We talked about options of continued wound VAC therapy and conservative management, with the risk of further worsening of the periprosthetic infection. I talked her about the risks of flap failure and the need for repeat procedures including debridement or subsequent reconstructions. I talked to her about weakness of plantarflexion. I talked her about damage to surrounding structures including nerves, muscles, tendons and vasculature. I talked her about the risks of wound healing problems and needs for wound care. We talked about bleeding and infection. Furthermore I talked to her about the risks of general anesthesia including DVT/PE, as well as stroke from either ischemia or hypovolemia/hypotension. I also talked to her about the risks of being off her blood thinner (we discussed being off the blood thinner for 48 hours before surgery) as she has atrial fibrillation. After thorough discussion of the risks and benefits of surgery, she elected to proceed with reconstruction using a medial gastrocnemius flap. Dr. Velásquez and I will coordinate our schedules and plastics will be available for reconstruction after the debridement/synovectomy and polyethylene exchange. For now, wound VAC changes 3 times per week. Plan from 28 November 2024: We discussed again the risks as noted above. I reiterated the risks of wound healing problems and flap failure. We also discussed the alternatives including continued VAC therapy, but given that Dr. Velásquez is doing a polyethylene exchange, it seems reasonable to attempt to get definitive coverage at the time of the exchange, and the patient understands this and would like to proceed with a gastrocnemius flap. I also reiterated the risks of the dangers of general anesthesia and prolonged operative time as noted above. We also discussed the postoperative protocol for knee extension (at least 1 month). We discussed the procedure and donor site deficits/compensation, as well as numbness and nerve damage and damage to other surrounding structures that is possible. We discussed skin grafting. Continue VAC therapy for now. Plan for definitive coverage on 30 November 2024 at the time of the polyethylene exchange.
== END 2024-12-02 23:59 | disposition home or self-care (01) ==
LOC: WC 15:00
PROVIDERS: PCP Family Medicine; Referring Provider Surgery Plastic and Reconstructive Surgery; Visit Provider Surgery Plastic and Reconstructive Surgery
DX: T84.53XA Infection and inflammatory reaction due to internal right knee prosthesis, initial encounter (principal); L97.813 Non-pressure chronic ulcer of other part of right lower leg with necrosis of muscle; I48.91 Unspecified atrial fibrillation; Z79.01 Long term (current) use of anticoagulants; B95.4 Other streptococcus as the cause of diseases classified elsewhere; Z96.651 Presence of right artificial knee joint
CPT/HCPCS: 11043

== ENCOUNTER 2024-11-30 13:27 | Inpatient (IN) | payer MEDICARE, OTHER, SELFPAY ==
--- NOTE | 2024-11-28 18:12 | PAT.ANESEVAL ---
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 When Was Last Pacemaker Check QUESTION #4 FULL TEXT: You/Your Family Experience fever (hyperthermia) with Anesthesia Last Oral Intake Last Oral intake: Last Oral Intake NPO since Meds taken in AM with sips of water? Meds patient instructed to take am of surgery PONV PONV - securities lending trader: PONV - securities lending trader Female Yes 11/28/24 14:04 HX of Motion Sickness No 11/28/24 14:04 HX of N/V After Surgery No 11/28/24 14:04 Non-Smoker Yes 11/28/24 14:04 Duration of Surgery greater No 11/28/24 14:04 than 60 minutes Number of Risk Factors 2 11/28/24 14:04 PONV Score Moderate Risk 11/28/24 14:04 Height & Weight Height & Weight: Anesthesia: Height & Weight Height 5 ft 3 in 11/14/24 14:46 Respiratory Assessment Respiratory Assessment - securities lending trader: Respiratory Tract Infection Hx - securities lending trader Hx Respiratory Tract Infection Yes: 11/13/24 COVID + NO 11/28/24 14:04 SYMPTOMS PRESENTLY STOP Sleep Apnea STOP Sleep Apnea - securities lending trader: STOP Sleep Apnea - securities lending trader Hx Hypertension No 11/28/24 14:04 Hx Sleep Apnea No 11/28/24 14:04 CPAP No 11/28/24 14:04 BIPAP Do you snore loudly (louder No 11/28/24 14:04 than talking or can be heard Do you often feel tired/ No 11/28/24 14:04 fatigued/ sleepy during daytime? Has anyone observed you stop No 11/28/24 14:04 breathing during sleep? STOP Results Negative 11/28/24 14:04 QUESTION #5 FULL TEXT : Do you snore loudly (louder than talking or can be heard through closed doors)? 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 Specify any problems Hx of Preganancy in last 3 No 11/28/24 14:04 Months Nurse Filling Out Transfusion VCHRISTIN 11/28/24 14:04 & Questions: Date: 11/28/24 11/28/24 14:04 Time: 14:06 11/28/24 14:04 Patient unable to answer at this time (ie. confused, unrespo /Reproduction History /Reproductive History - securities lending trader: /Reproductive Hx- securities lending trader Hx Now No 11/28/24 14:04 Gestational Age (in weeks): EDC: Hx Hx Para Hx Section SAB No 11/28/24 14:04 PFS Medical History (Updated 11/23/24 @ 00:02 by Background Daemon) Loss of hearing History of steroid therapy Uses wheelchair Walker as ambulation aid Bladder disease Heartburn History of edema History of stress test History of echocardiogram Cardiology follow-up encounter Essential hypertension Other acute postprocedural pain Wears glasses Arthritis Migraine headache Former smoker History of pain when walking Anticoagulant long-term use Paroxysmal atrial fibrillation Anxiety Obesity Paroxysmal supraventricular tachycardia Dizziness Palpitations Uterovaginal prolapse, incomplete Home Medications ?Medication ?Instructions ?Recorded ?Last Taken ?Type acetaminophen 500 mg tablet 1,000 mg PO Q8 PRN pain 07/23/22 10/13/24 01:00 History ascorbic acid (vitamin C) 500 mg 500 mg PO QAM osteoporosis 05/31/24 Unknown History tablet (Vitamin C) cholecalciferol (vitamin D3) 25 25 mcg PO QDAY SUPPLEMENT 05/31/24 10/12/24 History mcg (1,000 unit) tablet apixaban 5 mg tablet (Eliquis) 5 mg PO BID BLOOD THINNER #180 tabs 08/26/24 10/12/24 Rx magnesium oxide 400 mg (241.3 mg 400 mg PO QHS SUPPLEMENT 10/03/24 Unknown History magnesium) tablet hydroxyzine HCl 25 mg tablet 25 mg PO QHS PRN PRN anxiety 11/09/24 Unknown History quetiapine 25 mg tablet 25 mg PO DAILY SLEEP 11/09/24 Unknown History cefepime 2 gram solution for 2 g IV Q8 INFECTION 17 days #51 ea 11/15/24 Unknown Rx injection diltiazem HCl 240 mg 240 mg PO QHS HEART #30 caps 11/15/24 Unknown Rx capsule,extended release 24 hr (Cartia XT) Allergy/AdvReac Type Severity Reaction Status Date / Time metoprolol AdvReac Mild Nausea Verified 11/28/24 13:58 flecainide AdvReac nausea Verified 11/28/24 13:58 Family History Mother CAD (coronary artery disease) Myocardial infarction, Onset Age: 80 Father Asthma COPD (chronic obstructive pulmonary disease) Brother Colon cancer COPD (chronic obstructive pulmonary disease) Former smoker Grandmother Breast cancer Grandfather Colon cancer Surgical History (Updated 11/28/24 @ 14:03 by Phoebe Baumann) Hx of knee surgery History of knee replacement (02/18/24) History of total hip arthroplasty (05/08/21) Hx of total hip arthroplasty History of esophagogastroduodenoscopy (EGD) Hx of colonoscopy History of bladder suspension procedure (2017) H/O total hysterectomy (2018) Social History household members: spouse Smoking Status: Former smoker how long ago did patient quit smokin years ago alcohol intake: never substance use type: does not use caffeine: Yes Type: coffee Number of servings: 2 Audit: Pertinent Findings HISTORY of Pertinent Findings History of Pertinent Findings: hx of paroxysmal AFib, HTN on diltazem for rate control Pertinent Findings EKG Perinent findings: EKG 11/09/24: sinus tachycardia with ventricular rate of 149 (hx of PSVT) Stress test pertinent findings: 12/22/23: exercise stress test neg, METS 1 Conclusion: Normal pharmacologic myocardial perfusion stress test. Mildly reduced ejection fraction. Echo (EF%) pertinent findings: echo 02/01/24: Normal LV size. Left ventricular systolic function is normal. The left ventricular ejection fraction is 60 %. Structurally normal valves. Recommendation Anesthesia Recommendation Anesthesia recommendation: OPTIMIZED for anesthesia
[2024-11-30] VITALS (14 sets, daily range): BP systolic 106–132; BP diastolic 45–69; PULSE 88–120; RESP 16–20; TEMP 36.7–37.7; O2SAT 92–100; BMI 34.7
[2024-11-30] MEDS: 0.9% Normal Saline (1000mL) 1,000 ML 15 ML IV (06:44)
--- NOTE | 2024-11-30 07:11 | PCM.HP.STD ---
HPI - General General Date of Admission: 11/30/24 HPI Narrative KRISTA TALAVERA, is a 74 F who presents right knee wound. Patient has been followed by plastics in the wound center. In October she had acute septic periprosthetic joint infection after having an uneventful previous total knee replacement on the right side. Irrigation debridement was performed. Patient quickly had breakdown of the distal wound. She was quickly referred to the wound center as she wished to avoid immediate surgery. We attempted use a wound VAC. There has not been significant amount of joint fluid draining. However, superficial skin surround tissues of continue to breakdown. Based on this plastics is felt that the soft tissue coverage procedures are operative. We did discuss the patient doing a coinciding irrigation debridement of the joint in order to have a appropriate wound bed. Patient did wish to proceed with this. She is also been consented for medial gastroc flap by plastic surgery after the wound is irrigated debrided with a polyethylene exchange. Cultures will be taken at this time. She is currently on cefepime. [facility] Medical History Loss of hearing History of steroid therapy Uses wheelchair Walker as ambulation aid Bladder disease Heartburn History of edema History of stress test History of echocardiogram Cardiology follow-up encounter Essential hypertension Other acute postprocedural pain Wears glasses Arthritis Migraine headache Former smoker History of pain when walking Anticoagulant long-term use Paroxysmal atrial fibrillation Anxiety Obesity Paroxysmal supraventricular tachycardia Dizziness Palpitations Uterovaginal prolapse, incomplete Home Medications ?Medication ?Instructions ?Recorded ?Last Taken ?Type acetaminophen 500 mg tablet 1,000 mg PO Q8 PRN pain 07/23/22 10/13/24 01:00 History ascorbic acid (vitamin C) 500 mg 500 mg PO QAM osteoporosis 05/31/24 11/29/24 History tablet (Vitamin C) cholecalciferol (vitamin D3) 25 25 mcg PO QDAY SUPPLEMENT 05/31/24 11/29/24 History mcg (1,000 unit) tablet apixaban 5 mg tablet (Eliquis) 5 mg PO BID BLOOD THINNER #180 tabs 08/26/24 11/27/24 Rx magnesium oxide 400 mg (241.3 mg 400 mg PO QHS SUPPLEMENT 10/03/24 11/29/24 History magnesium) tablet hydroxyzine HCl 25 mg tablet 25 mg PO QHS PRN PRN anxiety 11/09/24 11/29/24 History quetiapine 25 mg tablet 25 mg PO DAILY SLEEP 11/09/24 11/29/24 22:30 History cefepime 2 gram solution for 2 g IV Q8 INFECTION 17 days #51 ea 11/15/24 11/30/24 05:00 Rx injection diltiazem HCl 240 mg 240 mg PO QHS HEART #30 caps 11/15/24 11/29/24 22:30 Rx capsule,extended release 24 hr (Cartia XT) Allergy/AdvReac Type Severity Reaction Status Date / Time metoprolol AdvReac Mild Nausea Verified 11/30/24 06:27 flecainide AdvReac nausea Verified 11/30/24 06:27 Family History Mother CAD (coronary artery disease) Myocardial infarction, Onset Age: 80 Father Asthma COPD (chronic obstructive pulmonary disease) Brother Colon cancer COPD (chronic obstructive pulmonary disease) Former smoker Grandmother Breast cancer Grandfather Colon cancer Surgical History Hx of knee surgery History of knee replacement (02/18/24) History of total hip arthroplasty (05/08/21) Hx of total hip arthroplasty History of esophagogastroduodenoscopy (EGD) Hx of colonoscopy History of bladder suspension procedure (2017) H/O total hysterectomy (2017) Social History household members: spouse Smoking Status: Former smoker how long ago did patient quit smokin years ago alcohol intake: never substance use type: does not use caffeine: Yes Type: coffee Number of servings: 2 ROS ROS Narrative Patient does have some diarrhea and nausea. There is some concerns associated with the antibiotics. Temperature is 99. 14 point review of systems otherwise negative Vital Signs Vital Signs Vital Signs: 11/30/24 06:33 11/30/24 06:33 Temperature 99.9 F H Temperature Source Temporal Pulse Rate 120 H Respiratory Rate 20 H Respiratory Pattern Normal Blood Pressure 132/65 H Blood Pressure Mean 87 Blood Pressure Source Monitor Blood Pressure Position Semi-Fowlers Blood Pressure Location Left Arm Pulse Ox 96 Oxygen Delivery Method Room Air Weight Weight: 196 lb 3.382 oz Body Mass Index (BMI) 34.7 Physical Exam Const alert, oriented x3 and no apparent distress HEENT normocephalic Eyes PERRL Neck No nuchal rigidity Resp normal respiratory effort Cardio Cardio Narrative: Regular pulse rate distally GI non-distended Extremity Extremity Narrative: Right lower extremity: Knee swelling is improved from previous examination. No erythema. Range of motion 0 to 100 degrees flexion. Patient does have wound VAC over distal incision. Pictures from the last wound exam were reviewed patient has growing area of superficial skin breakdown. Skin Skin Narrative: Distal wound is noted. Neuro oriented x3 Psych mental status grossly normal Results Medical Records Data Attestation: I reviewed the patient's medical records Assessment & Plan Assessment/Plan (1) Infected prosthetic knee joint: PLAN: Patient remains under treatment for her right periprosthetic knee joint infection. It does appear that the joint at this time not directly communicating with the superficial wound however, based on the plan for coverage we have elected to proceed with a irrigation debridement with polyethylene exchange today we will obtain new cultures. This will help with determining duration of further antibiotics necessary for treatment. Would also ensure appropriately clean wound bed for patient's muscle flap which is planned today as well. Patient understands there is risk of surgery including but limited to blood loss, DVTs, PEs, nervous damage complex, the risk of anesthesia including loss of life. Patient does wish to proceed with above-mentioned plan.
--- NOTE | 2024-11-30 07:19 | PCM.HP.STD ---
HPI - General General Date of Admission: 11/30/24 HPI Narrative Chief Complaint: Right knee wound after infected arthroplasty History of Wound: HPI from 01 Nov 2024: Joselin Diane is a delightful 74-year-old female with past medical history of a right total knee arthroplasty in February 2024 who presented back to her arthroplasty surgeon Dr. Velásquez with an acute pyogenic right total knee infection earlier this month in October 2024 and was taken back to the operating room on 13 October 2024 for irrigation/debridement with complete synovectomy and a polyethylene exchange of the right knee. Per operative report, the joint was closed with layered 1-0 Vicryl interrupted sutures and the subcuticular layer was closed with 2-0 interrupted Vicryl sutures followed by isabella for the final skin closure. The patient was placed on IV antibiotics by infectious disease, as her cultures grew Streptococcus group G (currently on ceftriaxone per infectious disease consultation). She followed up with Dr. Velásquez in clinic and had some drainage and wound healing issues from the distal portions of the incision and at some point nylon stitches were used to bridge the gap and keep the wound together (isabella are out on exam today). Today she denies any fevers chills or any significant drainage. Of note the patient has atrial fibrillation and is chronically anticoagulated on Eliquis and also takes diltiazem for rate control and blood pressure. She is not a smoker. No history of diabetes. No personal or family history of bleeding or clotting problems or problems with anesthesia. Interval events following initial consultation: Patient was admitted to the hospital on 10 November 2024 for fevers and chills (was determined to be possibly secondary to COVID as she was having shortness of breath as well). The wound was examined and looked about the same as it did in clinic earlier in the week (no signs of mala pus or drainage from the joint). The joint was aspirated as there was concern for infection around the arthroplasty. Aspiration was negative for growth x 5 days and the decision was made by the arthroplasty surgeon to continue current treatment plan with plastics using wound VAC for superficial wound. Patient was discharged on continued cefepime per infectious disease as well as 3 times per week VAC changes and follow-up in the wound care center. 21 NOV 2024: Patient here today for follow-up. Denies any fevers chills or worsening of pain. 28 Nov 2024: Tolerating VAC changes. Discussed upcoming surgery extensively today at our visit with the patient and her family. Patient holding her blood thinner today in anticipation for surgery (for her atrial fibrillation). Current Encounter (DATE OF SURGERY H&P UPDATE): I saw and examined the patient this morning in pre-operative holding. We discussed risks and benefits of today's surgery and they would like to proceed. NO CHANGE in health history since last seen and evaluated. Ready to proceed with surgery. Patient has been off of her anticoagulation (for atrial fibrillation) for 48 hours preop. [facility] Medical History Loss of hearing History of steroid therapy Uses wheelchair Walker as ambulation aid Bladder disease Heartburn History of edema History of stress test History of echocardiogram Cardiology follow-up encounter Essential hypertension Other acute postprocedural pain Wears glasses Arthritis Migraine headache Former smoker History of pain when walking Anticoagulant long-term use Paroxysmal atrial fibrillation Anxiety Obesity Paroxysmal supraventricular tachycardia Dizziness Palpitations Uterovaginal prolapse, incomplete Home Medications ?Medication ?Instructions ?Recorded ?Last Taken ?Type acetaminophen 500 mg tablet 1,000 mg PO Q8 PRN pain 07/23/22 10/13/24 01:00 History ascorbic acid (vitamin C) 500 mg 500 mg PO QAM osteoporosis 05/31/24 11/29/24 History tablet (Vitamin C) cholecalciferol (vitamin D3) 25 25 mcg PO QDAY SUPPLEMENT 05/31/24 11/29/24 History mcg (1,000 unit) tablet apixaban 5 mg tablet (Eliquis) 5 mg PO BID BLOOD THINNER #180 tabs 08/26/24 11/27/24 Rx magnesium oxide 400 mg (241.3 mg 400 mg PO QHS SUPPLEMENT 10/03/24 11/29/24 History magnesium) tablet hydroxyzine HCl 25 mg tablet 25 mg PO QHS PRN PRN anxiety 11/09/24 11/29/24 History quetiapine 25 mg tablet 25 mg PO DAILY SLEEP 11/09/24 11/29/24 22:30 History cefepime 2 gram solution for 2 g IV Q8 INFECTION 17 days #51 ea 11/15/24 11/30/24 05:00 Rx injection diltiazem HCl 240 mg 240 mg PO QHS HEART #30 caps 11/15/24 11/29/24 22:30 Rx capsule,extended release 24 hr (Cartia XT) Allergy/AdvReac Type Severity Reaction Status Date / Time metoprolol AdvReac Mild Nausea Verified 11/30/24 06:27 flecainide AdvReac nausea Verified 11/30/24 06:27 Family History Mother CAD (coronary artery disease) Myocardial infarction, Onset Age: 80 Father Asthma COPD (chronic obstructive pulmonary disease) Brother Colon cancer COPD (chronic obstructive pulmonary disease) Former smoker Grandmother Breast cancer Grandfather Colon cancer Surgical History Hx of knee surgery History of knee replacement (02/18/24) History of total hip arthroplasty (05/08/21) Hx of total hip arthroplasty History of esophagogastroduodenoscopy (EGD) Hx of colonoscopy History of bladder suspension procedure (2017) H/O total hysterectomy (2017) Social History household members: spouse Smoking Status: Former smoker how long ago did patient quit smokin years ago alcohol intake: never substance use type: does not use caffeine: Yes Type: coffee Number of servings: 2 Vital Signs Vital Signs Vital Signs: 11/30/24 06:33 11/30/24 06:33 Temperature 99.9 F H Temperature Source Temporal Pulse Rate 120 H Respiratory Rate 20 H Respiratory Pattern Normal Blood Pressure 132/65 H Blood Pressure Mean 87 Blood Pressure Source Monitor Blood Pressure Position Semi-Fowlers Blood Pressure Location Left Arm Pulse Ox 96 Oxygen Delivery Method Room Air Weight Weight: 196 lb 3.382 oz Body Mass Index (BMI) 34.7 Physical Exam Const alert, oriented x3 and no apparent distress HEENT normocephalic Eyes PERRL Neck No nuchal rigidity Resp normal respiratory effort Cardio Cardio Narrative: Regular pulse rate distally GI non-distended Extremity Extremity Narrative: Right lower extremity: Knee swelling is improved from previous examination. No erythema. Wound VAC over distal incision. No drainage in the VAC. Skin Skin Narrative: Distal wound is noted. Neuro oriented x3 Psych mental status grossly normal Assessment & Plan Assessment/Plan (1) Infected prosthetic knee joint: PLAN: Plan from 01 Nov 2024: I talked the patient extensively about concern for soft tissue coverage. I talked to Dr. Velásquez also about his concerns. Following debridement of the tissue today, I think it is appropriate to attempt wound VAC to improve granulation and attempt to bridge the area of dehiscence. Patient was informed of risks, benefits, and alternatives to this treatment. We also talked about potential need for flap coverage to improve soft tissue overlying the knee prosthesis, which could possibly be our next option if there is further demarcation of the tissue and need for further debridement in the operating room. I will reassess the wound on Thursday, 07 November 2024 (next week), after initiation of the wound VAC. Flap option would be a medial gastrocnemius. Patient happy with the plan at this time. Dr. Velásquez happy with the plan. The patient will continue twice daily wet-to-dry dressings until she gets the wound VAC. Plan from 07 November 2024: Continue wound VAC therapy 3 times per week changes. I discussed with the patient and her family my concern for soft tissue coverage over the knee, and that we may have and eventually need a debridement and gastrocnemius flap. I talked to them about the risks, benefits, and alternatives to continued wound VAC therapy versus OR debridement and eventual flap reconstruction at this time. They elected to continue wound VAC therapy for now and reevaluate the wound next week in clinic. I talked to Dr. Velásquez who is the orthopedist, and he was in agreement with this plan at this time. Plan for plastics to follow closely. Plan from 21 Nov 2024: Wound is evolving and appears significantly deeper. Given that we are in clinic setting today, unable to examine wound base. Immediately discussed with Dr. Velásquez the arthroplasty surgeon. Given our exam of the wound today with the wound VAC off, he would like to washout the knee and do a polyethylene exchange. At that time I will perform a medial gastrocnemius flap and skin graft for coverage. I talked to the patient extensively about the risks, benefits, and alternatives to reconstruction with a medial gastrocnemius flap. We talked about options of continued wound VAC therapy and conservative management, with the risk of further worsening of the periprosthetic infection. I talked her about the risks of flap failure and the need for repeat procedures including debridement or subsequent reconstructions. I talked to her about weakness of plantarflexion. I talked her about damage to surrounding structures including nerves, muscles, tendons and vasculature. I talked her about the risks of wound healing problems and needs for wound care. We talked about bleeding and infection. Furthermore I talked to her about the risks of general anesthesia including DVT/PE, as well as stroke from either ischemia or hypovolemia/hypotension. I also talked to her about the risks of being off her blood thinner (we discussed being off the blood thinner for 48 hours before surgery) as she has atrial fibrillation. After thorough discussion of the risks and benefits of surgery, she elected to proceed with reconstruction using a medial gastrocnemius flap. Dr. Velásquez and I will coordinate our schedules and plastics will be available for reconstruction after the debridement/synovectomy and polyethylene exchange. For now, wound VAC changes 3 times per week. Plan from 28 November 2024: We discussed again the risks as noted above. I reiterated the risks of wound healing problems and flap failure. We also discussed the alternatives including continued VAC therapy, but given that Dr. Velásquez is doing a polyethylene exchange, it seems reasonable to attempt to get definitive coverage at the time of the exchange, and the patient understands this and would like to proceed with a gastrocnemius flap. I also reiterated the risks of the dangers of general anesthesia and prolonged operative time as noted above. We also discussed the postoperative protocol for knee extension (at least 1 month). We discussed the procedure and donor site deficits/compensation, as well as numbness and nerve damage and damage to other surrounding structures that is possible. We discussed skin grafting. Continue VAC therapy for now. Plan for definitive coverage on 30 November 2024 at the time of the polyethylene exchange. INTERVAL H&P PLAN, DATE OF SURGERY: We will proceed with surgery today. I re-iterated all of the risks as noted above with regards to surgery and my procedure (medial gastrocnemius flap reconstruction with skin grafting). I talked to her again about the post-operative protocol. She understands the risks of flap failure/need for further surgeries/debridement operations/reconstructions.
[2024-11-30] MEDS: Acetaminophen 500 MG Tablet 1000 MG PO (07:29)
--- NOTE | 2024-11-30 07:29 | PCM.PRE.AN2 ---
ASA Classification* ASA Classification ASA Classification: 3 Assessment & Plan Anesthesia* Anesthesia Assessment Anesthesia Assessment: Discussed sedation and/or anesthesia options, risks, benefits, and alternatives with patient/parents/legal guardian/POA. Questions invited. The patient/parents/legal guardian/POA seems to understand and agrees to proceed with anesthesia plan. Reviewed the physical assessment, medical history, allergy history and patient home medications list prior to surgery/procedure/anesthetic and documented any changes. Performed airway and anesthesia risk assessments. Anesthesia Type Anesthesia Type: General History Source History Obtained from:: Patient and Chart Anesthesia Focused Assessment* Temperature: 99.9 F Pulse Rate: 120 Blood Pressure: 132/65 Respiratory Rate: 20 Pulse Ox: 96 Oxygen Delivery Method: Room Air Airway Assessment Mouth opens: 2 cm Mallampati Score: III Teeth Condition: Intact Neck Range of motion (ROM): Full ROM Focused Labs Anesthesia Preop lab: CBC WBC 6.0 K/mm3 (4.4-11.0) 11/23/24 12:15 11/23/24 RBC 3.68 M/mm3 (4.2-5.4) L 11/23/24 12:15 11/23/24 Hgb 10.8 g/dL (12.0-15.0) L 11/23/24 12:15 11/23/24 Hct 34.5 % (37-47) L 11/23/24 12:15 11/23/24 Plt Count 235 K/mm3 (150-450) 11/23/24 12:15 11/23/24 CHEMISTRY Potassium 3.4 mmol/L (3.5-5.1) L 11/23/24 12:15 11/23/24 Sodium 142 mmol/L (136-145) 11/23/24 12:11/23/24 Magnesium 2.1 mg/dL (1.6-2.6) 11/14/24 05:27 11/14/24 Phosphorus 3.9 mg/dL (2.5-4.9) 11/14/24 05:27 11/14/24 BUN 14 mg/dL (7-18) 11/23/24 12:15 11/23/24 Creatinine 0.42 mg/dL (0.55-1.02) L 11/23/24 12:15 11/23/24 Glucose 103 mg/dL (74-106) 11/23/24 12:15 11/23/24 POC Glucose 85 mg/dL (74-106) 10/13/24 12:25 10/13/24 TSH 1.72 uIU/mL (0.358-3.74) 04/08/24 12:45 04/08/24 COAG PT 17.0 SECONDS (11.7-14.9) H 11/09/24 23:35 11/09/24 Pre-Assessment Diagnosis/Proposed Procedure Planned Operative Procedure(s): (R) I&D with Poly Exchange, Knee, COMBO WITH SISKA (R) MEDIAL GASTRO FLAP W/SKIN GRAFT COMBO WITH KIRK Anesthesia History 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 When Was Last Pacemaker Check QUESTION #4 FULL TEXT: You/Your Family Experience fever (hyperthermia) with Anesthesia Last Oral Intake Last Oral intake: Last Oral Intake NPO since 22:30 11/30/24 06:33 Meds taken in AM with sips of water? Meds patient instructed to take am of surgery PONV PONV - food product inspector: PONV - food product inspector Female Yes 11/28/24 14:04 HX of Motion Sickness No 11/28/24 14:04 HX of N/V After Surgery No 11/28/24 14:04 Non-Smoker Yes 11/28/24 14:04 Duration of Surgery greater No 11/28/24 14:04 than 60 minutes Number of Risk Factors 2 11/28/24 14:04 PONV Score Moderate Risk 11/28/24 14:04 Height & Weight Height & Weight: Anesthesia: Height & Weight Height 5 ft 3 in 11/30/24 06:33 Weight: 89 kg 11/30/24 06:33 Body Mass Index (BMI) 34.7 11/30/24 06:33 Respiratory Assessment Respiratory Assessment - food product inspector: Respiratory Tract Infection Hx - food product inspector Hx Respiratory Tract Infection Yes: 11/13/24 COVID + NO 11/28/24 14:04 SYMPTOMS PRESENTLY STOP Sleep Apnea STOP Sleep Apnea - food product inspector: STOP Sleep Apnea - food product inspector Hx Hypertension No 11/28/24 14:04 Hx Sleep Apnea No 11/28/24 14:04 CPAP No 11/28/24 14:04 BIPAP Do you snore loudly (louder No 11/28/24 14:04 than talking or can be heard Do you often feel tired/ No 11/28/24 14:04 fatigued/ sleepy during daytime? Has anyone observed you stop No 11/28/24 14:04 breathing during sleep? STOP Results Negative 11/28/24 14:04 QUESTION #5 FULL TEXT : Do you snore loudly (louder than talking or can be heard through closed doors)? Tobacco Use History Tobacco Use History - food product inspector: Tobacco Use History - food product inspector Tobacco Use Non-smoker 02/26/21 09:17 Smoking Status Former smoker 11/28/24 14:04 Hx Tobacco Use No 11/28/24 14:04 Years Smoking Packs Smoked per Day Smoking Cessation Date was No - quit smoking greater 11/28/24 14:04 within the last 15 years than 15 years ago Hx Smoking Cessation Date 03/05/96 04/24/21 14:04 Hx Smoking Cessation No 11/28/24 14:04 Counseling Hematologic Medial History Hematologic Hx - food product inspector: Hematologic Medical Hx - education intern Hx of Blood Transfusion No 11/28/24 14:04 Hx of Transfusion in last 3 No 11/28/24 14:04 Months Date of Last Transfusion (if within last 3 months) Ever experience any problems No 11/28/24 14:04 with transfusion(s)? Specify any problems Hx of Preganancy in last 3 No 11/28/24 14:04 Months Nurse Filling Out Transfusion VCHRISTIN 11/28/24 14:04 & Questions: Date: 11/28/24 11/28/24 14:04 Time: 14:06 11/28/24 14:04 Patient unable to answer at this time (ie. confused, unrespo /Reproduction History /Reproductive History - food product inspector: /Reproductive Hx- food product inspector Hx Now No 11/28/24 14:04 Gestational Age (in weeks): EDC: Hx Hx Para Hx Section SAB No 11/28/24 14:04 Active Medications Active Medications: Current Medications Generic Name Dose Route Start Last Admin Trade Name Freq PRN Reason Stop Dose Admin Acetaminophen 1,000 mg 11/30/24 08:00 Acetaminophen 500 Mg Tablet PO 11/30/24 08:01 X1 ONE Gabapentin 600 mg 11/30/24 08:00 Gabapentin 600 Mg Tablet PO 11/30/24 08:01 X1 ONE Cefazolin Sodium 2 gm/ N/A 20 mls @ 400 mls/hr 11/30/24 07:30 IV 11/30/24 07:32 PREOP ONE Sodium Chloride 1,000 mls @ 15 mls/hr 11/30/24 06:10 11/30/24 06:44 IV 12/05/24 19:29 15 mls/hr .Q48H MAXIMUS Administration Protocol PFS Medical History Loss of hearing History of steroid therapy Uses wheelchair Walker as ambulation aid Bladder disease Heartburn History of edema History of stress test History of echocardiogram Cardiology follow-up encounter Essential hypertension Other acute postprocedural pain Wears glasses Arthritis Migraine headache Former smoker History of pain when walking Anticoagulant long-term use Paroxysmal atrial fibrillation Anxiety Obesity Paroxysmal supraventricular tachycardia Dizziness Palpitations Uterovaginal prolapse, incomplete Home Medications ?Medication ?Instructions ?Recorded ?Last Taken ?Type acetaminophen 500 mg tablet 1,000 mg PO Q8 PRN pain 07/23/22 10/13/24 01:00 History ascorbic acid (vitamin C) 500 mg 500 mg PO QAM osteoporosis 05/31/24 11/29/24 History tablet (Vitamin C) cholecalciferol (vitamin D3) 25 25 mcg PO QDAY SUPPLEMENT 05/31/24 11/29/24 History mcg (1,000 unit) tablet apixaban 5 mg tablet (Eliquis) 5 mg PO BID BLOOD THINNER #180 tabs 08/26/24 11/27/24 Rx magnesium oxide 400 mg (241.3 mg 400 mg PO QHS SUPPLEMENT 10/03/24 11/29/24 History magnesium) tablet hydroxyzine HCl 25 mg tablet 25 mg PO QHS PRN PRN anxiety 11/09/24 11/29/24 History quetiapine 25 mg tablet 25 mg PO DAILY SLEEP 11/09/24 11/29/24 22:30 History cefepime 2 gram solution for 2 g IV Q8 INFECTION 17 days #51 ea 11/15/24 11/30/24 05:00 Rx injection diltiazem HCl 240 mg 240 mg PO QHS HEART #30 caps 11/15/24 11/29/24 22:30 Rx capsule,extended release 24 hr (Cartia XT) Allergy/AdvReac Type Severity Reaction Status Date / Time metoprolol AdvReac Mild Nausea Verified 11/30/24 06:27 flecainide AdvReac nausea Verified 11/30/24 06:27 Family History Mother CAD (coronary artery disease) Myocardial infarction, Onset Age: 80 Father Asthma COPD (chronic obstructive pulmonary disease) Brother Colon cancer COPD (chronic obstructive pulmonary disease) Former smoker Grandmother Breast cancer Grandfather Colon cancer Surgical History Hx of knee surgery History of knee replacement (02/18/24) History of total hip arthroplasty (05/08/21) Hx of total hip arthroplasty History of esophagogastroduodenoscopy (EGD) Hx of colonoscopy History of bladder suspension procedure (2017) H/O total hysterectomy (2018) Social History household members: spouse Smoking Status: Former smoker how long ago did patient quit smokin years ago alcohol intake: never substance use type: does not use caffeine: Yes Type: coffee Number of servings: 2 Review of Systems (Anesthesia) ROS Narrative System reviewed and no additional complaints, except as documented. Physical Exam Const alert and oriented x3 HEENT dentition normal Neuro oriented x3 and moves all extremities
[2024-11-30] MEDS: Gabapentin 600 MG Tablet PO (07:30)
[2024-11-30] MEDS: Cefazolin 2 GM in Syringe IV (07:48)
--- NOTE | 2024-11-30 08:16 | PCM.OPRPT ---
Operative Report (Standard) Operative Information Date of Procedure: 11/30/24 Pre-Operative Diagnosis: Right knee wound over arthroplasty Post-Operative Diagnosis: Same Surgery/Procedure Performed: 1) Right medial gastrocnemius rotational muscle flap for coverage of the right knee wound (CPT: 16793) 2) Split-thickness skin graft, right thigh to the right medial gastrocnemius flap, 2 x 3 cm graft (CPT: 67118) 3) Use of fluorescence angiography for assessment of flap (following dissection and inset) intra-operatively (using SPY machine), (CPT: 60281) biomass plant technician: Yes Forming Tube Selector: Samir Rivera Tasks completed by special education teaching assistant: Closing and Retracting Type of Anesthesia: General/Supplemental (20 cc of liposomal bupivacaine to the gastrocnemius donor site and skin graft donor site. ) RN Documented Start/Stop Times: Operation Date: 11/30/24 07:30 Case Time Into Pre-Op 11/30/24 06:06 Anesthesia Start 11/30/24 07:46 Into Room 11/30/24 07:46 Procedure Start 11/30/24 08:23 Procedure End 11/30/24 11:50 Anesthesia End 11/30/24 11:53 Out of Room 11/30/24 11:53 Procedure Start Time: 09:36 Procedure Stop Time: 11:50 Select all DRAINS/GRAFTS/IMPLANTS that apply: Drains (19 Fr reyes) Drain details: 2 drains (over joint capsule knee, and at donor site from calf). Dr. Velásquez has a drain in the joint Estimated Blood Loss: 150 cc Specimen collected: No Description of surgery: Indications: Patient is a delightful 74 YO female with infection involving right knee arthroplasty. Presents today for wash out/polyethylene exchange with orthopedics followed by reconstruction with right medial gastrocnemius flap and skin graft with plastic surgery. She was counseled on the risks, benefits, and alternatives to the procedure, and she elected to proceed. Procedure Details: Patient was correctly identified in pre-operative holding and marked. She was taken back to the operating room where she was administered general anesthesia. She was prepped and draped in sterile fashion and a timeout was performed with the orthopedics and plastics team. The orthopedic portion the procedure was then performed including washout and polyethylene exchange. Please see their separate operative dictation for their portion of the procedure. Following closure of the joint capsule, there is a persistent wound over the inferior aspect of the incision with poor skin quality and too much tension for closure. There was also a small hole/sinus from the inferior of the joint capsule closure. We therefore continued with the plan for reconstruction using a medial gastrocnemius muscle flap for coverage. The tourniquet was deflated for our portion of the procedure. An incision approximately 2 cm behind the tibia was made and dissection was taken down to the fascia overlying the superficial posterior compartment with care taken to protect cutaneous nerves including the saphenous nerve. The fascia was opened and the gastrocnemius and soleus muscles were identified. The gastrocnemius was from the soleus and the loose areolar plane and the plantaris longus was identified between the two muscles confirming we are in the correct interval. Dissection was then carried out distally to the Achilles tendon where a 1 cm cuff of Achilles was taken with the medial gastrocnemius. Care was taken to identify and preserve the medial sural nerve and then split the raphae between the medial and lateral gastrocnemius muscles. Division between the muscles was done with the ligature. The muscle was then rotated and advanced medially. A subcutaneous tunnel was made with Bovie electrocautery again with care to protect cutaneous nerves. The muscle was then tunneled medially over the wound without any tension. The achilles tendon stump was used to anchor the muscle superiorly and laterally over the small opening of the joint inferiorly/over the bone and capsule. The tendon was secured/sutured with an 0 PDS suture. Loose 2-0 PDS sutures were then used to anchor the rest of the muscle within the wound on the edges. A 19 Fr reyes drain was placed at the donor site and over the joint capsule. The donor site was closed with 2-0 PDS deep sutures as well as 3-0 monocryl deep dermal sutures followed by isabella. The proximal incision over the knee was closed with 2-0 PDS deep sutures and 3-0 monocryl deep dermal sutures folloed by isabella. 3 cc of indocyanine green was injected followed by a 10 cc saline flush and the SPY machine was used to check perfusion of the flap. The flap was perfused. Attention was then turned to the right lateral thigh where a skin graft was taken at 12/1000th of an inch with a Desmond dermatome. It measured 2 x 3 cm. Hemostasis was obtained with epinephrine soaked telpha. The donor site was then dressed with xeroform (stapled into place in corners). The graft was sutured over the muscle with 3-0 chromic gut suture. Adpatic and a wound VAC was then placed over the flap and the incisions and was holding suction at the end of the case. A knee immobilizer was applied. Post-operative plan: Knee immobilizer at all times for 1 month. Continue VAC until 05 December 2024 (bedside take down). Plan to start PT (walking) on Thursday, 02 Dec 2024, with knee immobilizer at all times. We will plan to restart blood thinner tomorrow if no signs of bleeding/hematoma. Surgical Findings: Deep knee wound requiring reconstruction with a muscle flap Complications Complications: No Admit VTE Documentation VTE Present on Admission: No VTE Mechan Device Prophylaxis: SCD's
--- NOTE | 2024-11-30 09:24 | OP.PCM_ITS ---
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 Surgery/Procedure Performed: Irrigation debridement polyethylene exchange complete synovectomy right knee analog device designer: Yes E Business Consultant: Samir Rivera Tasks completed by food trades assistants: Opening, Closing, Removing tissue, Implanting device, Hemostasis: Electrocautery and Retracting Additional diagnostic assistant?: No Type of Anesthesia: General RN Documented Start/Stop Times: Operation Date: 11/30/24 07:30 Case Time Into Pre-Op 11/30/24 06:06 Anesthesia Start 11/30/24 07:46 Into Room 11/30/24 07:46 Procedure Start 11/30/24 08:23 Procedure Start Time: 08:23 Procedure Stop Time: 09:20 Select all DRAINS/GRAFTS/IMPLANTS that apply: Drains Drain details: Hemovac drain proximal lateral and Implanted device Implanted device details: Size 4 x 10 mm CS Hankamer X3 polyethylene Special Medications: Patient on IV cefepime regimen Estimated Blood Loss: 150 Fluids Replaced: 1000 mL crystalloid Specimen collected: Yes Description of specimen(s) removed: 3 separate specimens were sent to microbiology Description of surgery: This is a combined case with plastics. Patient had previous periprosthetic joint infection with acute washout. Her knee symptoms continue to be stable however she continued to have a distal wound breakdown. Wound VAC was attempted initially as there was not copious amounts of joint fluid was felt to be superficial problem continue to track deep eventually we elected to proceed with repeat washout of the joint as patient remained on IV antibiotics throughout the course of the treatment, followed by medial gastroc flap with plastics. The following is my procedure note from orthopedics. On the date of procedure patient'sR lower extremity was marked in the preoperative area. The patient was then taken back to the operating room where the patient was placed on the table in the supine position. All bony prominences were identified a well-padded. Anesthesia assumed control of the C-spine and airway and remained controlled throughout the remainder of the procedure. A t ourniquet was placed on the operative thigh and the leg was prepped in a sterile fashion. The surgeon then scrubbed at this time .Upon reentering the room left lower extremity was draped in a standard orthopedic fashion. A timeout was then called and everyone agreed upon the side, the site, the procedure to be performed, patient's identity and antibiotics given. A midline skin incision was made and sharp dissection was taken down through skin subcutaneous tissue and fat. Appropriate flaps were elevated medially and laterally. His arthrotomy was identified and the standard medial parapatellar incision was made and the patella was subluxed laterally. The standard deep MCL release was done. At this point an aggressive synovectomy commenced. Our attention was first turned towards the subpatellar pouch and all suspicious synovium and tissues were debrided. We then directed our attention towards medial lateral gutters were these tissues were aggressively debrided. Knee was then flexed up the polyethylene was removed. Once polyethylene was removed we did the remainder of the synovium in the medial and lateral gutters and along the lateral structures and MCL. We then debrided the posterior knee. Knee was flexed up and culture was taken from the femoral notch. And also there was a membrane beneath the tibial baseplate that was removed and sent for culture. He had completed our synovectomy and were happy with the joint. We then used a chlorahexadine scrub sponge and physically scrub the metal implants using a scrub sponge but nothing abrasive. We also scrubbed the remainder of the wound with chlorhexidine. 6 L of normal saline were then irrigated throughout the wound with low-pressure lavage and the wound was once again explored. All remaining tissue that was brooklynn picious was seen in the wound was once again irrigated with normal saline. 10 mm polyethylene was then opened and put back into place after appropriate trialing. Tourniquet was let down and hemostasis was obtained as well as possible. Lateral drain was placed. Once the final components were placed the wound was irrigated with a 3-minute dilute Betadine lavage followed by chlorhexidine lavage and finally, copiously irrigated with normal saline solution. The wound was closed in a layer fulton fashion using #1 vicryl interrupted sutures for the peripatellar portion of the arthrotomy, we then ran a strata fix for a watertight closure. We were unable to close the distal centimeters of the arthrotomy in the area where the wound had been this left a distal portion of the arthrotomy 8 cm x 5 cm that would be covered by the medial gastroc flap by plastics. The remainder of the wound was left open for plastics to complete closure after placement of the medial gastroc flap. Post op plan Patient's range of motion activity will be directed by wound healing in relation to the plastics medial gastroc flap. DVT prophylaxis was discussed with the primary team. Patient will resume her Eliquis tomorrow. Patient can be weightbearing as tolerated from orthopedic standpoint. Begin range of motion wound patient's wound is appropriate to begin range of motion. Patient has follow-up in the office in 2 weeks with orthopedics in order to establish continue following up care. Follow-up care will then be guided by patient's wound healing and appropriateness of beginning physical therapy. Surgical Findings: Upon exposure there was an area roughly 6 cm long at the proximal pole of the patella where the arthrotomy had not completely healed. This was debrided carefully. Additionally the distal margin of the wound had significant tissue breakdown and necrosis which required debridement as noted above. Complications Complications: No Admit VTE Documentation VTE Present on Admission: No VTE Mechan Device Prophylaxis: SCD's and Thigh High MARILYN Hose VTE Pharm Prophylaxis ordered?: Yes
[2024-11-30] MEDS: Mineral Oil, Light Sterile 10 ML Vial MC (11:24)
[2024-11-30] MEDS: 0.9% Normal Saline (Pres. free 10 ML Vial (11:25)
[2024-11-30] MEDS: BUPIVACAINE LIPOSOME/PF 20 ML VIAL OPERA.SITE (11:26)
[2024-11-30] MEDS: Epinephrine (1 mg/ml) 1 MG/ML VIAL (11:26)
--- NOTE | 2024-11-30 13:32 | PCM.POST.ANE ---
Anesthesia: Postop Eval I Current Vital Signs Temperature: 98.7 F Pulse Rate: 112 Blood Pressure: 117/64 Respiratory Rate: 16 Pulse Ox: 96 Oxygen Delivery Method: Venturi Mask Oxygen Flow Rate (L/min): 4 Assessment Airway patent: Yes Spontaneous unlabored respirations: Yes Mental status: Awake nausea: No Vomiting: No Anesthesia Complication: No Fluid Hydration Crystalloid volume administer (ml): 1,800 Total IV fluid infused: 1,800 Progress Note Anesthesia document: Postop Eval 1 completed: Yes
[2024-11-30] MEDS: oxyCODONE 5 MG Tablet PO ×3 (15:25→23:55)
--- NOTE | 2024-11-30 15:26 | PCM.POSTANE2 ---
Anesthesia Postop Eval I Sum Postop Eval Completion status Anesthesia document: Postop Eval 1 completed: Yes Anesthesia Postop Eval I Summary Anesthesia Postop Eval I Summary: Anesthesia Postop Eval I: Assessment Summary Airway patent Yes 11/30/24 13:34 Spontaneous unlabored Yes 11/30/24 13:34 respirations Mental status Awake 11/30/24 13:34 nausea No 11/30/24 13:34 Vomiting No 11/30/24 13:34 Anesthesia Postop Eval I: Fluid Summary Crystalloid volume administer 1,800 11/30/24 13:34 (ml) Colloids volume administered ( ml) Blood Product volume administered (ml) Total IV fluid infused 1,800 11/30/24 13:34 Anesthesia Postop Eval I: Summary Notes Anesthesia Complication No 11/30/24 13:34 Anesthesia Complication Comment: Post-operative progress note Anesthesia: Postop Eval II Evaluation Mental status: Awake and Calm Pain Level: 5 nausea: No Vomiting: No Complications Anesthesia Complication: No
[2024-11-30] MEDS: 0.9% Saline Lock 10 ML Syringe IV (18:01)
[2024-11-30] MEDS: Cefepime HCl 2 GM in 0.9% Normal Saline (100mL MB+) 100 ML IV ×2 (18:01→23:23)
[2024-11-30] MEDS: 0.9% Normal Saline (100mL Bag) 100 ML 15 ML IV (18:02)
[2024-11-30] MEDS: Acetaminophen 325 MG Tablet 650 MG PO (19:57)
[2024-11-30] MEDS: dilTIAZem CD 240 MG Capsule PO (21:00)
[2024-11-30] MEDS: QUEtiapine 25 MG Tablet PO (21:07)
[2024-12-01] VITALS (9 sets, daily range): BP systolic 97–134; BP diastolic 53–64; PULSE 60–98; RESP 16–18; TEMP 36.5–37.7; O2SAT 95–97
[2024-12-01] MEDS: Cefepime HCl 2 GM in 0.9% Normal Saline (100mL MB+) 100 ML IV ×3 (05:12→20:17)
[2024-12-01] MEDS: 0.9% Normal Saline (100mL Bag) 100 ML 15 ML IV ×2 (05:13→14:02)
[2024-12-01 07:05] LABS: Absolute Lymphocyte Count 0.46 X10^3/uL (0.83-4.51); Absolute Neutrophil Count 4.3 X10^3/uL (2.0-7.7); Basophil# 0.01 X10^3/uL; Basophil% 0.2 % (0-1); Eosinophil# 0.05 X10^3/uL; Eosinophils% 0.9 % (0-5); Hemoglobin 9.5 g/dL (12.0-15.0); Lymphocyte # 0.46 X10^3/ul (0.83-4.51); Lymphocyte % 8.3 % (19-41); Mean Corp Hgb Conc 30.6 g/dL (32-36); Mean Corpuscular Hgb 28.8 pg (27.0-32.0); Mean Corpuscular Volume 93.9 fL (81-99); Mean Platelet Vol. 10.4 fl (6.2-12.0); Monocyte# 0.67 X10^3/uL; NRBC Flagged by Analyzer 0 % (0-5); Neutrophil # 4.34 X10^3/uL (2.7-7.7); Neutrophil % 77.9 % (47-70); POSITIVE DIFFERENTIAL YES; Platelet Count 142 K/mm3 (150-450); RBC Distribution Width CV 14.4 % (11.6-14.6); RBC Distribution Width SD 49.7 fl (35.1-43.9); White Blood Count 5.6 K/mm3 (4.4-11.0)
--- NOTE | 2024-12-01 07:14 | PN.ORTHO_ITS ---
Subjective Subjective Patient appears to be comfortable in bed. Patient states that she did work with physical therapy yesterday and it went okay. Patient denies any nausea, vomiting, dizziness. Patient denies any shortness of breath, chest pain, calf pain. Patient denies any fever, chills, signs of infection. Patient denies any adverse events overnight. Objective Data Objective Data Vital Signs: Vital Signs Temp Pulse Resp BP Pulse Ox O2 Del Method O2 Flow Rate 98 F 94 18 114/61 97 Room Air 2 12/01/24 05:05 12/01/24 05:05 12/01/24 05:05 12/01/24 05:05 12/01/24 05:05 12/01/24 05:05 11/30/24 15:20 Oxygen Flow Rate (L/min) 2 Oxygen Delivery Method Room Air Weight: 89 kg Body Mass Index (BMI) 34.7 Intake & Output: Intake and Output for Last 24 Hours 11/29/24 11/30/24 12/01/24 23:59 23:59 23:59 Intake Total 2221.25 / 2221.25 199.00 / 199.00 Output Total 655 / 655 275 / 275 Balance 1566.25 / 1566.25 -76.00 / -76.00 Lab / Micro Data 12/01/24 06:47 12/01/24 06:47 Labs: Laboratory Results - last 24 hr 12/01/24 06:47: WBC 5.6, RBC 3.30 L, Hgb 9.5 L, Hct 31.0 L, MCV 93.9, MCH 28.8, MCHC 30.6 L, RDW Std Deviation 49.7 H, RDW Coeff of Marielos 14.4, Plt Count 142 L, MPV 10.4, Immature Gran % (Auto) 0.700, Neut % (Auto) 77.9 H, Lymph % (Auto) 8.3 L, [place] % (Auto) 12.0 H, Eos % (Auto) 0.9, Baso % (Auto) 0.2, Absolute Neuts (auto) 4.3, Absolute Lymphs (auto) 0.46 L, Nucleated RBC % 0 Physical Exam Narrative 1. SCD in place on nonoperative leg. 2. Knee immobilizer in place on right knee. 3. Dressings are clean and dry. 4. Wound VAC is with minimal drainage. 5. Dorsiflexion and plantarflexion are performed actively without pain or restriction 6. Sensation intact light touch. 7. Neurovascularly intact. 8. Negative Homans bilaterally. Const alert, oriented x3 and no apparent distress Assessment & Plan Assessment/Plan (1) Infected prosthetic knee joint: PLAN: Postoperative irrigation debridement polyethylene exchange complete synovectomy right knee. 1. DVT prophylaxis: Patient's Eliquis will be restarted today as long as no signs of bleeding or hematoma. 2. Pain medications: Will continue current pain regimen that will be managed by primary care team as patient's pain is currently well-controlled. 3. Physical therapy: Patient will be weightbearing as tolerated. Patient will be in a knee immobilizer at all times for 1 month. Patient is to begin walking physical therapy on 12/02/2024 with knee immobilizer at all times per primary care team. 4. Wound VAC: Patient will have wound VAC on until 12/05/2024 per primary care team. 5. Microbiology: All microbiology is still pending at this time. Will be reviewed by myself and primary care team. 6. Incentive spirometry: Patient was encouraged to use incentive spirometer every hour that she is awake for the first week to exercise lungs and decrease risk of postoperative lung infection. 7. Patient will follow-up in office per postoperative instructions in 2 weeks. Follow-up care will be guided by patient's wound healing and appropriateness of beginning physical therapy. 8. Patient is okay for discharge from an orthopedic standpoint as long as pain maintains adequately controlled, has worked with and is comfortable with physical therapy, and okay per medicine and primary care team.
--- NOTE | 2024-12-01 08:23 | WOUNDNOTE ---
In to assess the right knee. wound VAC dressing intact with good seal noted at 125mmHg low continuous suction. the donor site dressing is intact to the right thigh. pt with 2 DEANDRE drains and hemovac drain. Pt denies much discomfort. Pt denies needs. will monitor.
[2024-12-01] MEDS: oxyCODONE 5 MG Tablet PO (08:48)
[2024-12-01 09:00] LABS: Anion Gap -5 (5-15); BUN 16 mg/dL (4-19); BUN/Creat Ratio 28.5 RATIO (10-20); Calcium 8.2 mg/dL (7.6-11.0); Chloride 106 mmol/L (96-108); Creatinine, Serum 0.6 mg/dL (0.6-1.0); EST Glomerular Filtration Rate 96 (>60); Estimated Creatinine Clearance 67.27 ml/min; Glucose 123 mg/dL (70-99); Potassium 3.8 mmol/L (3.3-5.1); Sodium Level 137 mmol/L (133-145)
[2024-12-01] MEDS: Acetaminophen 500 MG Tablet 1000 MG PO ×3 (10:13→21:11)
--- NOTE | 2024-12-01 10:28 | CASEMGMT ---
TEENA SIMMS Readmission Note Previous Admission: 11/09/24-11/15/24 Diagnosis:sepsis, septic knee DC Disposition: Home with [facility] Current Admission: Current Diagnosis: I&D with poly exchange of knee and muscle flap and skin graft On index admission, pt was dc'd home with [facility] for wound vac changes and IV atb. TEENA SIMMS into pt room, pt lying in bed with and dtr Kusum at bedside. Pt states her dtr Kusum who lives next door did her IV atb for her at home. She states she is still active with [facility] SN and PT. Pt has followed up with her PCP and was taking her medications as ordered. Pt returned for planned surgery. Pt to be on BR until 12/02 and use a knee immobilizer. Pt also has a wound vac on that will be taken down at bedside on 12/05. Pt does still have her home wound vac and it is present in the hospital. Pt would like to go home with her [facility]. She denies need for a list of other options. Should pt still need IV atb at [place], she would like [facility] still and denies need for a list of other options. TEENA SIMMS to follow. DC Plan: [facility], pending therapy eval tomorrow and course of hospitalization.
--- NOTE | 2024-12-01 10:40 | PN.SURG_ITS ---
Subjective Subjective Pain reasonably well controlled this morning. Exparel block seems to be working. No N/V or diarrhea (had some loose stool day before surgery, but since resolved). Objective Data Objective Data Vital Signs: Vital Signs Temp Pulse Resp BP Pulse Ox O2 Del Method O2 Flow Rate 100 F H 90 17 107/63 95 Room Air 2 12/01/24 08:22 12/01/24 08:22 12/01/24 08:22 12/01/24 08:22 12/01/24 10:05 12/01/24 10:05 11/30/24 15:20 Oxygen Flow Rate (L/min) 2 Oxygen Delivery Method Room Air Weight: 196 lb 3.382 oz Body Mass Index (BMI) 34.7 Intake & Output: Intake and Output for Last 24 Hours 11/29/24 11/30/24 12/01/24 23:59 23:59 23:59 Intake Total 2221.25 / 2221.25 199.00 / 199.00 Output Total 655 / 655 275 / 275 Balance 1566.25 / 1566.25 -76.00 / -76.00 Lab / Micro Data 12/01/24 06:47 12/01/24 06:47 Labs: Laboratory Results - last 24 hr 12/01/24 06:47: WBC 5.6, RBC 3.30 L, Hgb 9.5 L, Hct 31.0 L, MCV 93.9, MCH 28.8, MCHC 30.6 L, RDW Std Deviation 49.7 H, RDW Coeff of Marielos 14.4, Plt Count 142 L, MPV 10.4, Immature Gran % (Auto) 0.700, Neut % (Auto) 77.9 H, Lymph % (Auto) 8.3 L, [place] % (Auto) 12.0 H, Eos % (Auto) 0.9, Baso % (Auto) 0.2, Absolute Neuts (auto) 4.3, Absolute Lymphs (auto) 0.46 L, Nucleated RBC % 0, Sodium 137, Potassium 3.8, Chloride Direct 106, Carbon Dioxide 36.0 H, Anion Gap -5 L, BUN 16, Creatinine 0.6, Estim Creat Clear Calc 67.27, Est GFR (MDRD) Non-Af 96, B UN/Creatinine Ratio 28.5 H, Glucose 123 H, Calcium 8.2 Micro: Microbiology 11/30/24 Unknown Tissue - Knee Wound Culture - Preliminary No growth-Final to follow 11/30/24 Unknown Tissue - Knee Wound Culture - Preliminary No growth-Final to follow 11/30/24 Unknown Tissue - Knee Wound Culture - Preliminary No growth-Final to follow Physical Exam Const alert and oriented x3 General Appearance: cooperative Resp normal respiratory effort Cardio regular rate Narrative: Ramirez in place, celar urine Extremity Extremity Narrative: RLE: Inspection: VAC in place over graft and incisions. No strike through bleeding on the thigh. No pressure points. Offloading heal. Drains are all SS and strip well. No fluid collections/hematoma at donor site or over knee. Motor: Plantarflexion and dorsiflexion intact. Sensation: Sensation to light touch intact in leg, ankle, and foot. LLE: SCD on the left leg. No swelling Peripheral Pulses: Yes pulses 2+ throughout Assessment & Plan Assessment/Plan (1) Infected prosthetic knee joint: PLAN: S/p right medial gastrocnemius flap reconstruction over the right knee following polyethylene exchange on 30 Nov 2024. Expected course thus far. Will arrange foot drop splint today for continued pressure offloading of heal, until then will keep heal elevated off of the bed. O.K. to restart Eliquis today (discussed with medicine team 6 pm dose). Continue SCD for DVT pxx on the LLE. IS for pulm toilet. Continue Diltiazem for rate control Cefepime per ID (appreciate recommendations). WBAT from orthopedics standpoint. OK to begin walking with PT Thursday, 02 Dec 2024, but will knee immobilizer/knee extension at all times. Charges/Coding Procedures Integumentary [id number]: [id number] Global Visit
[2024-12-01] MEDS: 0.9% Saline Lock 10 ML Syringe IV ×2 (11:43→14:02)
--- NOTE | 2024-12-01 11:52 | NURSING ---
DEANDRE drains striped as per order
--- NOTE | 2024-12-01 11:59 | PCM.PN.HOSP ---
Subjective Subjective Doing well, no issues overnight. Pain is controlled Objective Data Objective Data Vital Signs: Vital Signs Temp Pulse Resp BP Pulse Ox O2 Del Method O2 Flow Rate 97.8 F 62 18 97/57 L 95 Room Air 2 12/01/24 11:27 12/01/24 11:27 12/01/24 11:27 12/01/24 11:27 12/01/24 11:12/01/24 11:11/30/24 15:20 Oxygen Flow Rate (L/min) 2 Oxygen Delivery Method Room Air Weight: 196 lb 3.382 oz Body Mass Index (BMI) 34.7 Intake & Output: Intake and Output for Last 24 Hours 11/30/24 12/01/24 12/02/24 03:59 03:59 03:59 Intake Total 2320.00 / 2320.00 340.25 / 340.25 Output Total 655 / 655 615 / 615 Balance 1665.00 / 1665.00 -274.75 / -274.75 Lab / Micro Data 12/01/24 06:47 12/01/24 06:47 Labs: Laboratory Results - last 24 hr 12/01/24 06:47: WBC 5.6, RBC 3.30 L, Hgb 9.5 L, Hct 31.0 L, MCV 93.9, MCH 28.8, MCHC 30.6 L, RDW Std Deviation 49.7 H, RDW Coeff of Marielos 14.4, Plt Count 142 L, MPV 10.4, Immature Gran % (Auto) 0.700, Neut % (Auto) 77.9 H, Lymph % (Auto) 8.3 L, [place] % (Auto) 12.0 H, Eos % (Auto) 0.9, Baso % (Auto) 0.2, Absolute Neuts (auto) 4.3, Absolute Lymphs (auto) 0.46 L, Nucleated RBC % 0, Sodium 137, Potassium 3.8, Chloride Direct 106, Carbon Dioxide 36.0 H, Anion Gap -5 L, BUN 16, Creatinine 0.6, Estim Creat Clear Calc 67.27, Est GFR (MDRD) Non-Af 96, BUN/Creatinine Ratio 28.5 H, Glucose 123 H, Calcium 8.2 Micro: Microbiology 11/30/24 Unknown Tissue - Knee Wound Culture - Preliminary No growth-Final to follow 11/30/24 Unknown Tissue - Knee Wound Culture - Preliminary No growth-Final to follow 11/30/24 Unknown Tissue - Knee Wound Culture - Preliminary No growth-Final to follow Physical Exam Narrative General: Alert, Oriented x3, Cooperative, No apparent distress HEENT: Atraumatic, PERRLA, EOMI, Normocephalic Oral: Moist Mucosa Neck: Supple, No JVD Lungs: Diminished, Normal air movement, No rhonchi, No wheeze, No rales Cardiovascular: Regular rate, Regular Rhythm, Normal S1, Normal S2, No murmurs Abdomen: Soft, Non Tender, Non-Distended, No Hepato-splenomegaly Extremities: No edema, Capillary Refill Less than 3 Seconds Skin: Dressings intact Musculoskeletal: No Tenderness to Palpation of Joints or Extremities Neurological: No focal neurological deficits, Motor Exam 5/5 strength throughout, Sensory exam intact to light touch and pain Psych/Mental Status: Normal Affect, Appropriate Assessment & Plan Assessment/Plan (1) Infected prosthetic knee joint: PLAN: Plan 1. 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 Pain management per primary ? PT/OT ? Continue with cefepime 2. Essential HTN/HLD/paroxysmal A-fib ? Can restart Eliquis this evening ? Continue with Cardizem ? Will monitor and make adjustments as necessary DVT: Eliquis Charges/Coding Visit Charges Inpatient E&M: 30275 Subs Hosp L2
--- NOTE | 2024-12-01 14:26 | WOUNDNOTE ---
Heels offloaded with heel protectors and pillows. pt aware that there should be no pressure to the heels. pt states understanding.
--- NOTE | 2024-12-01 15:42 | CASEMGMT ---
TEENA SIMMS into pt room to discuss financial concerns. Pt states her concern is that her IV atb from last admission were too expensive and she got a bill for $1000. Asked pt if she was aware of the cost prior to receiving them, pt states she was. Encouraged pt to call [facility] to see about setting up a payment plan for them. Pt agreed to this. Pt requested TEENA SIMMS card, given. Pt denies further needs.
--- NOTE | 2024-12-01 18:01 | NURSING ---
tavon drains stripped per order
[2024-12-01] MEDS: Ensure Plus High Protein 120 ML LIQUID PO (18:03)
[2024-12-01] MEDS: APIXABAN 5 MG TABLET PO (21:10)
[2024-12-01] MEDS: QUEtiapine 25 MG Tablet PO (21:10)
[2024-12-01] MEDS: dilTIAZem CD 240 MG Capsule PO (21:11)
[2024-12-02] VITALS (9 sets, daily range): BP systolic 99–132; BP diastolic 47–74; PULSE 64–128; RESP 16–22; TEMP 36.7–37.9; O2SAT 94–98
[2024-12-02] MEDS: Cefepime HCl 2 GM in 0.9% Normal Saline (100mL MB+) 100 ML IV ×3 (05:50→21:00)
[2024-12-02] MEDS: Acetaminophen 500 MG Tablet 1000 MG PO ×3 (05:50→21:07)
--- NOTE | 2024-12-02 08:12 | PCM.PN.SRG ---
Subjective Subjective Patient doing well. No issues overnight and no concerns for bleeding from the drains with regards to restarting her home anticoagulation. Objective Data Objective Data Vital Signs: Vital Signs Temp Pulse Resp BP Pulse Ox O2 Del Method O2 Flow Rate 98.1 F 101 H 16 125/67 H 96 Room Air 2 12/02/24 06:06 12/02/24 06:06 12/02/24 06:06 12/02/24 06:06 12/02/24 07:15 12/02/24 07:15 11/30/24 15:20 Oxygen Flow Rate (L/min) 2 Oxygen Delivery Method Room Air Weight: 196 lb 3.382 oz Body Mass Index (BMI) 34.7 Intake & Output: Intake and Output for Last 24 Hours 11/30/24 12/01/24 12/02/24 23:59 23:59 23:59 Intake Total 2221.25 / 2221.25 879.75 / 879.75 500 / 500 Output Total 655 / 655 1620 / 1620 387 / 387 Balance 1566.25 / 1566.25 -740.25 / -740.25 113 / 113 Lab / Micro Data 12/01/24 06:47 12/01/24 06:47 Labs: Laboratory Results - last 24 hr 12/01/24 06:47: Sodium 137, Potassium 3.8, Chloride Direct 106, Carbon Dioxide 36.0 H, Anion Gap -5 L, BUN 16, Creatinine 0.6, Estim Creat Clear Calc 67.27, Est GFR (MDRD) Non-Af 96, BUN/Creatinine Ratio 28.5 H, Glucose 123 H, Calcium 8.2 Micro: Microbiology 11/30/24 Unknown Tissue - Knee Gram Stain - Final 11/30/24 Unknown Tissue - Knee Wound Culture - Preliminary No growth-Final to follow 11/30/24 Unknown Tissue - Knee Gram Stain - Final 11/30/24 Unknown Tissue - Knee Wound Culture - Preliminary No growth-Final to follow 11/30/24 Unknown Tissue - Knee Gram Stain - Final 11/30/24 Unknown Tissue - Knee Wound Culture - Preliminary No growth-Final to follow Physical Exam Const alert and oriented x3 General Appearance: cooperative Resp normal respiratory effort Cardio regular rate Narrative: Ramirez in place, celar urine Extremity Extremity Narrative: RLE: Inspection: VAC in place over graft and incisions. Xeroform open to air on thigh no bleeding. No pressure points. Offloading heal (foam cushion offloading heel and no pressure sores at this time on the heel). Drains are all SS and strip well. Appropriate output. no fluid collections/hematoma at donor site or over knee. Knee joint drain removed per orthopedics (minimal output) Motor: Plantarflexion and dorsiflexion intact. Sensation: Sensation to light touch intact in leg, ankle, and foot. LLE: SCD on the left leg. No swelling Peripheral Pulses: Yes pulses 2+ throughout Assessment & Plan Assessment/Plan (1) Infected prosthetic knee joint: PLAN: S/p right medial gastrocnemius flap reconstruction over the right knee following polyethylene exchange on 30 Nov 2024. Expected course thus far. Will arrange foot drop splint today for continued pressure offloading of the heal, until then will keep heal elevated off of the bed and use the current foam dressing for padding. Continuing home Eliquis Continue SCD for DVT pxx on the LLE. IS for pulm toilet (1250 in IS today) Continue Diltiazem for rate control Cefepime per ID (appreciate recommendations) until Thursday, 05 December 2024, then we will transition to Doxycycline 100 mg PO BID for long-term suppression unless recent cultures grow something else. WBAT from orthopedics standpoint. OK to begin walking with PT today, Thursday, 02 Dec 2024, but will knee immobilizer/knee extension at all times. Ashley james today Charges/Coding Procedures Integumentary [id number]: 67881 Global Visit
[2024-12-02 08:36] LABS: Absolute Lymphocyte Count 0.37 X10^3/uL (0.83-4.51); Absolute Neutrophil Count 3.1 X10^3/uL (2.0-7.7); Basophil# 0.01 X10^3/uL; Basophil% 0.2 % (0-1); Eosinophil# 0.23 X10^3/uL; Eosinophils% 5.4 % (0-5); Hemoglobin 9.1 g/dL (12.0-15.0); Lymphocyte # 0.37 X10^3/ul (0.83-4.51); Lymphocyte % 8.7 % (19-41); Mean Corp Hgb Conc 32.5 g/dL (32-36); Mean Corpuscular Hgb 29.4 pg (27.0-32.0); Mean Corpuscular Volume 90.3 fL (81-99); Mean Platelet Vol. 11.1 fl (6.2-12.0); Monocyte# 0.46 X10^3/uL; Monocyte% 10.8 % (0-10); NRBC Flagged by Analyzer 0 % (0-5); Neutrophil # 3.14 X10^3/uL (2.7-7.7); Neutrophil % 73.7 % (47-70); POSITIVE DIFFERENTIAL YES; Platelet Count 130 K/mm3 (150-450); RBC Distribution Width CV 14.3 % (11.6-14.6); RBC Distribution Width SD 47.3 fl (35.1-43.9); White Blood Count 4.3 K/mm3 (4.4-11.0)
[2024-12-02] MEDS: Ensure Plus High Protein 120 ML LIQUID PO ×3 (09:20→15:56)
[2024-12-02] MEDS: APIXABAN 5 MG TABLET PO ×2 (09:20→21:08)
[2024-12-02 09:24] LABS: Anion Gap 10 (5-15); BUN 16 mg/dL (4-19); BUN/Creat Ratio 39.7 RATIO (10-20); Calcium 8.4 mg/dL (7.6-11.0); Carbon Dioxide 21.7 mmol/L (22.0-29.0); Chloride 106 mmol/L (96-108); Creatinine, Serum 0.41 mg/dL (0.70-1.20); EST Glomerular Filtration Rate 104 (>60); Estimated Creatinine Clearance 67.27 ml/min; Glucose 118 mg/dL (70-99); Potassium 3.5 mmol/L (3.3-5.1); Sodium Level 137 mmol/L (133-145)
--- NOTE | 2024-12-02 12:45 | CASEMGMT ---
Addendum entered by Annia Piedra 12/02/24 14:26: Received confirmation from [facility] that they did have pt [facility] on file when pt last admission's IV atb were dispensed. Pt aware. Original Note: Received message from stating to plan for dc on Thursday. Questioned if wound vac will plan to stay off on Thursday and if there will be an ID consult. No answer received yet. Updated Marion at [facility] that pt will be here through the weekend with potential dc for Thursday.
--- NOTE | 2024-12-02 14:07 | NURSING ---
This RN is aware of Vitals that were taken this morning by Brianna Wiggins Pot Reliner.
[2024-12-02] MEDS: 0.9% Saline Lock 10 ML Syringe IV ×3 (15:57→23:59)
--- NOTE | 2024-12-02 17:55 | PN_ITS ---
Progress Note Patient seen and examined Heart rate slightly elevated this afternoon when she was out of bed, but is since normalized is less than 120 (goal per medicine team for her atrial fibrillation). Life Skills Teacher is also seen and examined her and is reassured by her exam. Patient is not having any lower extremity swelling and is breathing well. She is back on her blood thinner and has her SCD in place in the left lower extremity. No bleeding in the drains (serosanguineous). Patient is comfortable. Plastic surgery will continue to follow closely Assessment & Plan Assessment/Plan (1) Infected prosthetic knee joint:
[2024-12-02] MEDS: Ondansetron 4 MG/2 ML Vial IV ×2 (18:05→23:59)
--- NOTE | 2024-12-02 20:25 | PN.HOSP_ITS ---
Subjective Subjective Doing well, no issues overnight. Drains and dressing appear clean dry and intact. Hemoglobin today is 9.1 Objective Data Objective Data Vital Signs: Vital Signs Temp Pulse Resp BP Pulse Ox O2 Del Method O2 Flow Rate 98.5 F 69 20 H 99/47 L 95 Room Air 2 12/02/24 17:56 12/02/24 17:56 12/02/24 17:56 12/02/24 17:56 12/02/24 17:56 12/02/24 17:56 11/30/24 15:20 Oxygen Flow Rate (L/min) 2 Oxygen Delivery Method Room Air Weight: 196 lb 3.382 oz Body Mass Index (BMI) 34.7 Intake & Output: Intake and Output for Last 24 Hours 12/01/24 12/02/24 12/03/24 03:59 03:59 03:59 Intake Total 2320.00 / 2320.00 781.00 / 781.00 1600 / 1600 Output Total 655 / 655 1620 / 1620 737 / 737 Balance 1665.00 / 1665.00 -839.00 / -839.00 863 / 863 Lab / Micro Data 12/02/24 07:36 12/02/24 07:36 Labs: Laboratory Results - last 24 hr 12/02/24 07:36: WBC 4.3 L, RBC 3.10 L, Hgb 9.1 L, Hct 28.0 L, MCV 90.3, MCH 29.4, MCHC 32.5 D, RDW Std Deviation 47.3 H, RDW Coeff of Marielos 14.3, Plt Count 130 L, MPV 11.1, Immature Gran % (Auto) 1.200 H, Neut % (Auto) 73.7 H, Lymph % (Auto) 8.7 L, [place] % (Auto) 10.8 H, Eos % (Auto) 5.4 H, Baso % (Auto) 0.2, Absolute Neuts (auto) 3.1, Absolute Lymphs (auto) 0.37 L, Nucleated RBC % 0, Sodium 137, Potassium 3.5, Chloride Direct 106, Carbon Dioxide 21.7 L, Anion Gap 10, BUN 16, Creatinine 0.41 L, Estim Creat Clear Calc 67.27, Est GFR (MDRD) Non- Af 104, BUN/Creatinine Ratio 39.7 H, Glucose 118 H, Calcium 8.4 Micro: Microbiology 11/30/24 Unknown Tissue - Knee Gram Stain - Final 11/30/24 Unknown Tissue - Knee Wound Culture - Preliminary No growth-Final to follow 11/30/24 Unknown Tissue - Knee Anaerobic Culture - Preliminary No growth in 48 hours. 11/30/24 Unknown Tissue - Knee Gram Stain - Final 11/30/24 Unknown Tissue - Knee Wound Culture - Preliminary No growth-Final to follow 11/30/24 Unknown Tissue - Knee Anaerobic Culture - Preliminary No growth in 48 hours. 11/30/24 Unknown Tissue - Knee Gram Stain - Final 11/30/24 Unknown Tissue - Knee Wound Culture - Preliminary No growth-Final to follow 11/30/24 Unknown Tissue - Knee Anaerobic Culture - Preliminary No growth in 48 hours. Physical Exam Narrative General: Alert, Oriented x3, Cooperative, No apparent distress HEENT: Atraumatic, PERRLA, EOMI, Normocephalic Oral: Moist Mucosa Neck: Supple, No JVD Lungs: Diminished, Normal air movement, No rhonchi, No wheeze, No rales Cardiovascular: Irregular rate and rhythm, Normal S1, Normal S2, No murmurs Abdomen: Soft, Non Tender, Non-Distended, No Hepato-splenomegaly Extremities: No edema, Capillary Refill Less than 3 Seconds Skin: Dressings intact Musculoskeletal: No Tenderness to Palpation of Joints or Extremities Neurological: No focal neurological deficits, Motor Exam 5/5 strength throughout, Sensory exam intact to light touch and pain Psych/Mental Status: Normal Affect, Appropriate Assessment & Plan Assessment/Plan (1) Infected prosthetic knee joint: PLAN: Plan 1. 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 Pain management per primary ? PT/OT ? Continue with cefepime while inpatient 2. Essential HTN/HLD/paroxysmal A-fib ? Continue with Eliquis ? Continue with Cardizem, she did have an episode of tachycardia today with ambulation it appears that this has normalized. ? Will monitor and make adjustments as necessary DVT: Eliquis Charges/Coding Visit Charges Inpatient E&M: 83809 Subs Hosp L2
[2024-12-02] MEDS: dilTIAZem CD 240 MG Capsule PO (21:08)
[2024-12-02] MEDS: QUEtiapine 25 MG Tablet PO (21:09)
[2024-12-02] MEDS: hydrOXYzine PAM 25 MG Capsule PO (21:10)
[2024-12-03] MEDS: oxyCODONE 5 MG Tablet PO ×2 (02:08→22:53)
[2024-12-03] MEDS: Cefepime HCl 2 GM in 0.9% Normal Saline (100mL MB+) 100 ML IV ×3 (05:31→22:33)
[2024-12-03 05:37] LABS: Absolute Lymphocyte Count 0.45 X10^3/uL (0.83-4.51); Basophil# 0.02 X10^3/uL; Basophil% 0.3 % (0-1); Eosinophil# 0.21 X10^3/uL; Eosinophils% 3.3 % (0-5); Hemoglobin 9.1 g/dL (12.0-15.0); Lymphocyte # 0.45 X10^3/ul (0.83-4.51); Lymphocyte % 7.1 % (19-41); Mean Corp Hgb Conc 32.5 g/dL (32-36); Mean Corpuscular Hgb 28.8 pg (27.0-32.0); Mean Corpuscular Volume 88.6 fL (81-99); Mean Platelet Vol. 10.9 fl (6.2-12.0); Monocyte# 0.57 X10^3/uL; NRBC Flagged by Analyzer 0 % (0-5); Neutrophil # 4.97 X10^3/uL (2.7-7.7); Neutrophil % 78.6 % (47-70); POSITIVE DIFFERENTIAL YES; Platelet Count 180 K/mm3 (150-450); RBC Distribution Width CV 14.1 % (11.6-14.6); RBC Distribution Width SD 46.2 fl (35.1-43.9); Red Blood Count 3.16 M/mm3 (4.2-5.4); White Blood Count 6.3 K/mm3 (4.4-11.0)
[2024-12-03] MEDS: Acetaminophen 500 MG Tablet 1000 MG PO ×3 (05:40→22:32)
[2024-12-03 05:43] VITALS: BP 136/72; PULSE 98; RESP 16; TEMP 36.8; O2SAT 97
[2024-12-03] MEDS: Ensure Plus High Protein 120 ML LIQUID PO ×2 (08:13→14:03)
[2024-12-03] MEDS: APIXABAN 5 MG TABLET PO ×2 (08:13→22:33)
--- NOTE | 2024-12-03 08:39 | PN.SURG_ITS ---
Subjective Subjective Doing well. Normal BM overnight and voiding normal s/p Ramirez removal. Pain controlled. Sitting in a chair with knee extended this morning, no pressure on heal. Objective Data Objective Data Vital Signs: Vital Signs Temp Pulse Resp BP Pulse Ox O2 Del Method O2 Flow Rate 98.3 F 98 16 136/72 H 97 Room Air 2 12/03/24 05:43 12/03/24 05:43 12/03/24 05:43 12/03/24 05:43 12/03/24 05:43 12/03/24 07:52 11/30/24 15:20 Oxygen Flow Rate (L/min) 2 Oxygen Delivery Method Room Air Weight: 196 lb 3.382 oz Body Mass Index (BMI) 34.7 Intake & Output: Intake and Output for Last 24 Hours 12/01/24 12/02/24 12/03/24 23:59 23:59 23:59 Intake Total 879.75 / 879.75 1999 / 1999 400 / 400 Output Total 1620 / 1620 747 / 747 428 / 428 Balance -740.25 / -740.25 1253 / 1253 - Lab / Micro Data 12/03/24 05:07 12/02/24 07:36 Labs: Laboratory Results - last 24 hr 12/02/24 07:36: Sodium 137, Potassium 3.5, Chloride Direct 106, Carbon Dioxide 21.7 L, Anion Gap 10, BUN 16, Creatinine 0.41 L, Estim Creat Clear Calc 67.27, Est GFR (MDRD) Non-Af 104, BUN/Creatinine Ratio 39.7 H, Glucose 118 H, Calcium 8.4 12/03/24 05:07: WBC 6.3, RBC 3.16 L, Hgb 9.1 L, Hct 28.0 L, MCV 88.6, MCH 28.8, MCHC 32.5, RDW Std Deviation 46.2 H, RDW Coeff of Marielos 14.1, Plt Count 180, MPV 10.9, Immature Gran % (Auto) 1.700 H, Neut % (Auto) 78.6 H, Lymph % (Auto) 7.1 L , [place] % (Auto) 9.0, Eos % (Auto) 3.3, Baso % (Auto) 0.3, Absolute Neuts (auto) 5.0, Absolute Lymphs (auto) 0.45 L, Nucleated RBC % 0 Micro: Microbiology 11/30/24 Unknown Tissue - Knee Gram Stain - Final 11/30/24 Unknown Tissue - Knee Wound Culture - Preliminary No growth-Final to follow 11/30/24 Unknown Tissue - Knee Anaerobic Culture - Preliminary No growth in 48 hours. 11/30/24 Unknown Tissue - Knee Gram Stain - Final 11/30/24 Unknown Tissue - Knee Wound Culture - Preliminary No growth-Final to follow 11/30/24 Unknown Tissue - Knee Anaerobic Culture - Preliminary No growth in 48 hours. 11/30/24 Unknown Tissue - Knee Gram Stain - Final 11/30/24 Unknown Tissue - Knee Wound Culture - Preliminary No growth-Final to follow 11/30/24 Unknown Tissue - Knee Anaerobic Culture - Preliminary No growth in 48 hours. Physical Exam Const alert and oriented x3 General Appearance: cooperative Resp normal respiratory effort Resp Narrative: 1500 on IS Cardio regular rate Narrative: Ramirez in place, celar urine Extremity Extremity Narrative: RLE: Inspection: VAC in place over graft and incisions. Xeroform open to air on thigh no bleeding. No pressure points. Offloading heal (foam cushion offloading heel and no pressure sores at this time on the heel). Drains are all SS and strip well. Appropriate output. no fluid collections/hematoma at donor site or over knee. Motor: Plantarflexion and dorsiflexion intact. Sensation: Sensation to light touch intact in leg, ankle, and foot. LLE: SCD on the left leg. No swelling Peripheral Pulses: Yes pulses 2+ throughout Assessment & Plan Assessment/Plan (1) Infected prosthetic knee joint: PLAN: S/p right medial gastrocnemius flap reconstruction over the right knee following polyethylene exchange on 30 Nov 2024. Expected course thus far. Will arrange foot drop splint today for continued pressure offloading of the heal, until then will keep heal elevated off of the bed/chair and use the current foam dressing for padding. Continuing home Eliquis Continue SCD for DVT pxx on the LLE. IS for pulm toilet Continue Diltiazem for rate control Cefepime per ID (appreciate recommendations) until Thursday, 05 December 2024, then we will transition to Doxycycline 100 mg PO BID for long-term suppression unless recent cultures grow something else. WBAT from orthopedics standpoint. OK to begin walking with PT today, Thursday, 02 Dec 2024, but will knee immobilizer/knee extension at all times. Charges/Coding Procedures Integumentary 111xxx-113xx: 13761 Global Visit
[2024-12-03] MEDS: proCHLORPERazine 10 MG/2 ML Vial 5 MG IV (09:37)
--- NOTE | 2024-12-03 10:35 | PCM.PN.HOSP ---
Subjective Subjective Doing well, no issues overnight. Pain is very well-controlled. Hemoglobin is stable. Objective Data Objective Data Vital Signs: Vital Signs Temp Pulse Resp BP Pulse Ox O2 Del Method O2 Flow Rate 98.3 F 98 16 136/72 H 97 Room Air 2 12/03/24 05:43 12/03/24 05:43 12/03/24 05:43 12/03/24 05:43 12/03/24 05:43 12/03/24 07:52 11/30/24 15:20 Oxygen Flow Rate (L/min) 2 Oxygen Delivery Method Room Air Weight: 196 lb 3.382 oz Body Mass Index (BMI) 34.7 Intake & Output: Intake and Output for Last 24 Hours 12/02/24 12/03/24 12/04/24 03:59 03:59 03:59 Intake Total 781.00 / 781.00 1999 / 1999 400 / 400 Output Total 1620 / 1620 747 / 747 428 / 428 Balance -839.00 / -839.00 1253 / 1253 - / Lab / Micro Data 12/03/24 05:07 12/02/24 07:36 Labs: Laboratory Results - last 24 hr 12/03/24 05:07: WBC 6.3, RBC 3.16 L, Hgb 9.1 L, Hct 28.0 L, MCV 88.6, MCH 28.8, MCHC 32.5, RDW Std Deviation 46.2 H, RDW Coeff of Marielos 14.1, Plt Count 180, MPV 10.9, Immature Gran % (Auto) 1.700 H, Neut % (Auto) 78.6 H, Lymph % (Auto) 7.1 L, [place] % (Auto) 9.0, Eos % (Auto) 3.3, Baso % (Auto) 0.3, Absolute Neuts (auto) 5.0, Absolute Lymphs (auto) 0.45 L, Nucleated RBC % 0 Micro: Microbiology 11/30/24 Unknown Tissue - Knee Gram Stain - Final 11/30/24 Unknown Tissue - Knee Wound Culture - Preliminary No growth-Final to follow 11/30/24 Unknown Tissue - Knee Anaerobic Culture - Preliminary No growth in 48 hours. 11/30/24 Unknown Tissue - Knee Gram Stain - Final 11/30/24 Unknown Tissue - Knee Wound Culture - Preliminary No growth-Final to follow 11/30/24 Unknown Tissue - Knee Anaerobic Culture - Preliminary No growth in 48 hours. 11/30/24 Unknown Tissue - Knee Gram Stain - Final 11/30/24 Unknown Tissue - Knee Wound Culture - Preliminary No growth-Final to follow 11/30/24 Unknown Tissue - Knee Anaerobic Culture - Preliminary No growth in 48 hours. Physical Exam Narrative General: Alert, Oriented x3, Cooperative, No apparent distress HEENT: Atraumatic, PERRLA, EOMI, Normocephalic Oral: Moist Mucosa Neck: Supple, No JVD Lungs: Diminished, Normal air movement, No rhonchi, No wheeze, No rales Cardiovascular: Irregular rate and rhythm, Normal S1, Normal S2, No murmurs Abdomen: Soft, Non Tender, Non-Distended, No Hepato-splenomegaly Extremities: No edema, Capillary Refill Less than 3 Seconds Skin: Dressings intact Musculoskeletal: No Tenderness to Palpation of Joints or Extremities Neurological: No focal neurological deficits, Motor Exam 5/5 strength throughout, Sensory exam intact to light touch and pain Psych/Mental Status: Normal Affect, Appropriate Assessment & Plan Assessment/Plan (1) Infected prosthetic knee joint: PLAN: Plan 1. 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 Pain management per primary ? PT/OT ? Continue with cefepime while inpatient, will reach out to infectious disease on Thursday to verify discharge antibiotics ? So far repeat cultures are negative however she did have Pseudomonas and a coag negative staph growing from the knee culture on 11/10/2024 2. Essential HTN/HLD/paroxysmal A-fib ? Continue with Eliquis ? Continue with Cardizem, she did have an episode of tachycardia today with ambulation it appears that this has normalized. ? Will monitor and make adjustments as necessary DVT: Eliquis Charges/Coding Visit Charges Inpatient E&M: 27674 Subs Hosp L2
[2024-12-03 10:44] VITALS: BP 123/58; PULSE 102; RESP 16; TEMP 37.1; O2SAT 97
[2024-12-03 16:45] VITALS: BP 122/76; PULSE 96; RESP 16; TEMP 36.6; O2SAT 97
[2024-12-03 22:28] VITALS: BP 127/59; PULSE 122; RESP 18; TEMP 37.4; O2SAT 96
[2024-12-03] MEDS: 0.9% Saline Lock 10 ML Syringe IV (22:32)
[2024-12-03] MEDS: QUEtiapine 25 MG Tablet 50 MG PO (22:32)
[2024-12-03] MEDS: dilTIAZem CD 240 MG Capsule PO (22:33)
[2024-12-03] MEDS: 0.9% Normal Saline (100mL Bag) 100 ML 15 ML IV (22:54)
[2024-12-04 01:59] VITALS: BP 90/52; PULSE 105; RESP 18; TEMP 36.4; O2SAT 95
[2024-12-04 06:10] VITALS: BP 119/69; PULSE 114; RESP 20; TEMP 36.8; O2SAT 96
[2024-12-04] MEDS: Acetaminophen 500 MG Tablet 1000 MG PO ×2 (06:13→15:21)
[2024-12-04] MEDS: Cefepime HCl 2 GM in 0.9% Normal Saline (100mL MB+) 100 ML IV ×2 (06:14→15:11)
[2024-12-04] MEDS: 0.9% Normal Saline (100mL Bag) 100 ML 15 ML IV (06:19)
[2024-12-04] MEDS: APIXABAN 5 MG TABLET PO (09:14)
[2024-12-04] MEDS: Ensure Plus High Protein 120 ML LIQUID PO ×2 (09:18→17:48)
[2024-12-04 10:10] VITALS: BP 124/78; PULSE 106; RESP 16; TEMP 36.8; O2SAT 97
--- NOTE | 2024-12-04 10:50 | PCM.PN.HOSP ---
Subjective Subjective Medically stable, will continue to monitor repeat labs in the morning Objective Data Objective Data Vital Signs: Vital Signs Temp Pulse Resp BP Pulse Ox O2 Del Method O2 Flow Rate 98.2 F 114 H 20 H 119/69 96 Room Air 2 12/04/24 06:10 12/04/24 06:10 12/04/24 06:10 12/04/24 06:10 12/04/24 06:10 12/04/24 06:10 11/30/24 15:20 Oxygen Flow Rate (L/min) 2 Oxygen Delivery Method Room Air Weight: 196 lb 3.382 oz Body Mass Index (BMI) 34.7 Intake & Output: Intake and Output for Last 24 Hours 12/03/24 12/04/24 12/05/24 03:59 03:59 03:59 Intake Total 1999 / 1999 840 / 840 400 / 400 Output Total 747 / 747 480 / 480 Balance 1253 / 1253 360 / 360 400 / 400 Lab / Micro Data 12/03/24 05:07 12/02/24 07:36 Micro: Microbiology 11/30/24 Unknown Tissue - Knee Gram Stain - Final 11/30/24 Unknown Tissue - Knee Wound Culture - Final No growth aerobically. 11/30/24 Unknown Tissue - Knee Anaerobic Culture - Preliminary No growth in 48 hours. 11/30/24 Unknown Tissue - Knee Gram Stain - Final 11/30/24 Unknown Tissue - Knee Wound Culture - Final No growth aerobically. 11/30/24 Unknown Tissue - Knee Anaerobic Culture - Preliminary No growth in 48 hours. 11/30/24 Unknown Tissue - Knee Gram Stain - Final 11/30/24 Unknown Tissue - Knee Wound Culture - Final No growth aerobically. 11/30/24 Unknown Tissue - Knee Anaerobic Culture - Preliminary No growth in 48 hours. Physical Exam Narrative General: Alert, Oriented x3, Cooperative, No apparent distress HEENT: Atraumatic, PERRLA, EOMI, Normocephalic Oral: Moist Mucosa Neck: Supple, No JVD Lungs: Diminished, Normal air movement, No rhonchi, No wheeze, No rales Cardiovascular: Irregular rate and rhythm, Normal S1, Normal S2, No murmurs Abdomen: Soft, Non Tender, Non-Distended, No Hepato-splenomegaly Extremities: No edema, Capillary Refill Less than 3 Seconds Skin: Dressings intact Musculoskeletal: No Tenderness to Palpation of Joints or Extremities Neurological: No focal neurological deficits, Motor Exam 5/5 strength throughout, Sensory exam intact to light touch and pain Psych/Mental Status: Normal Affect, Appropriate Assessment & Plan Assessment/Plan (1) Infected prosthetic knee joint: PLAN: Plan 1. 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 Pain management per primary ? PT/OT ? Continue with cefepime while inpatient, will reach out to infectious disease on Thursday to verify discharge antibiotics ? So far repeat cultures are negative however she did have Pseudomonas and a coag negative staph growing from the knee culture on 11/10/2024 2. Essential HTN/HLD/paroxysmal A-fib ? Continue with Eliquis ? Continue with Cardizem, she did have an episode of tachycardia today with ambulation it appears that this has normalized. ? Will monitor and make adjustments as necessary DVT: Eliquis Charges/Coding Visit Charges Inpatient E&M: 98343 Subs Hosp L1
--- NOTE | 2024-12-04 12:37 | PCM.PN.SRG ---
Subjective Subjective Doing well. No chest pain/racing of the heart. Sitting in chair eating lunch. Some nausea, but no vomiting, and has taken some Zofran. NGTD on cultures from time of polyethylene exchange/recon Objective Data Objective Data Vital Signs: Vital Signs Temp Pulse Resp BP Pulse Ox O2 Del Method O2 Flow Rate 98.2 F 114 H 20 H 119/69 96 Room Air 2 12/04/24 06:10 12/04/24 06:10 12/04/24 06:10 12/04/24 06:10 12/04/24 06:10 12/04/24 06:10 11/30/24 15:20 Oxygen Flow Rate (L/min) 2 Oxygen Delivery Method Room Air Weight: 196 lb 3.382 oz Body Mass Index (BMI) 34.7 Intake & Output: Intake and Output for Last 24 Hours 12/02/24 12/03/24 12/04/24 23:59 23:59 23:59 Intake Total 1999 840 / 840 400 / 400 Output Total 747 / 747 468 / 468 Balance 1253 / 1253 372 / 372 388 / 388 Lab / Micro Data 12/03/24 05:07 12/02/24 07:36 Micro: Microbiology 11/30/24 Unknown Tissue - Knee Gram Stain - Final 11/30/24 Unknown Tissue - Knee Wound Culture - Final No growth aerobically. 11/30/24 Unknown Tissue - Knee Anaerobic Culture - Preliminary No growth in 48 hours. 11/30/24 Unknown Tissue - Knee Gram Stain - Final 11/30/24 Unknown Tissue - Knee Wound Culture - Final No growth aerobically. 11/30/24 Unknown Tissue - Knee Anaerobic Culture - Preliminary No growth in 48 hours. 11/30/24 Unknown Tissue - Knee Gram Stain - Final 11/30/24 Unknown Tissue - Knee Wound Culture - Final No growth aerobically. 11/30/24 Unknown Tissue - Knee Anaerobic Culture - Preliminary No growth in 48 hours. Physical Exam Const alert and oriented x3 General Appearance: cooperative Resp normal respiratory effort Resp Narrative: 1500 on IS Cardio regular rate Narrative: Ramirez in place, celar urine Extremity Extremity Narrative: RLE: Inspection: VAC in place over graft and incisions. Xeroform open to air on thigh no bleeding. No pressure points. Offloading heal (foam cushion offloading heel and no pressure sores at this time on the heel). Drains are all SS and strip well. Appropriate output. no fluid collections/hematoma at donor site or over knee. Motor: Plantarflexion and dorsiflexion intact. Sensation: Sensation to light touch intact in leg, ankle, and foot. LLE: SCD on the left leg. No swelling Peripheral Pulses: Yes pulses 2+ throughout Assessment & Plan Assessment/Plan (1) Infected prosthetic knee joint: PLAN: S/p right medial gastrocnemius flap reconstruction over the right knee following polyethylene exchange on 30 Nov 2024. Expected course thus far. Will arrange foot drop splint today for continued pressure offloading of the heal, until then will keep heal elevated off of the bed/chair and use the current foam dressing for padding. Continuing home Eliquis Continue SCD for DVT pxx on the LLE. IS for pulm toilet Continue Diltiazem for rate control Cefepime per ID (appreciate recommendations) until Thursday, 05 December 2024, then we will transition to Doxycycline 100 mg PO BID for long-term suppression unless recent cultures grow something else. WBAT from orthopedics standpoint. OK to begin walking with PT today, Thursday, 02 Dec 2024, but will knee immobilizer/knee extension at all times. Charges/Coding Procedures Integumentary 111xxx-[id number]: [id number] Global Visit
[2024-12-04] MEDS: proCHLORPERazine 10 MG/2 ML Vial 5 MG IV (15:12)
[2024-12-04 16:55] VITALS: BP 98/59; PULSE 115; RESP 14; TEMP 36.8; O2SAT 96
[2024-12-05 00:14] VITALS: BP 136/69; PULSE 124; RESP 18; TEMP 37.2; O2SAT 96
[2024-12-05] MEDS: Cefepime HCl 2 GM in 0.9% Normal Saline (100mL MB+) 100 ML IV ×3 (00:17→13:02)
[2024-12-05] MEDS: dilTIAZem CD 240 MG Capsule PO (00:22)
[2024-12-05] MEDS: QUEtiapine 25 MG Tablet 50 MG PO (00:22)
[2024-12-05] MEDS: oxyCODONE 5 MG Tablet PO (00:22)
[2024-12-05] MEDS: Acetaminophen 500 MG Tablet 1000 MG PO ×3 (00:23→13:05)
[2024-12-05] MEDS: APIXABAN 5 MG TABLET PO ×2 (00:23→08:34)
[2024-12-05] MEDS: Ensure Plus High Protein 120 ML LIQUID PO ×3 (00:28→14:00)
[2024-12-05 06:31] VITALS: BP 112/62; PULSE 88; RESP 18; TEMP 36.4; O2SAT 99
[2024-12-05] MEDS: 0.9% Normal Saline (100mL Bag) 100 ML 15 ML IV (06:39)
[2024-12-05 07:54] LABS: Absolute Lymphocyte Count 0.73 X10^3/uL (0.83-4.51); Absolute Neutrophil Count 5.3 X10^3/uL (2.0-7.7); Basophil# 0.02 X10^3/uL; Basophil% 0.3 % (0-1); Eosinophils% 5.4 % (0-5); Hematocrit 30.2 % (37-47); Hemoglobin 9.4 g/dL (12.0-15.0); Lymphocyte # 0.73 X10^3/ul (0.83-4.51); Lymphocyte % 9.8 % (19-41); Mean Corp Hgb Conc 31.1 g/dL (32-36); Mean Corpuscular Hgb 28.5 pg (27.0-32.0); Mean Corpuscular Volume 91.5 fL (81-99); Mean Platelet Vol. 10.2 fl (6.2-12.0); Monocyte# 0.58 X10^3/uL; Monocyte% 7.8 % (0-10); NRBC Flagged by Analyzer 0 % (0-5); Neutrophil # 5.34 X10^3/uL (2.7-7.7); Platelet Count 266 K/mm3 (150-450); RBC Distribution Width CV 14.6 % (11.6-14.6); RBC Distribution Width SD 49.3 fl (35.1-43.9); White Blood Count 7.4 K/mm3 (4.4-11.0)
--- NOTE | 2024-12-05 08:27 | PN.SURG_ITS ---
Subjective Subjective Doing well. Cleared for home from PT standpoint. Walking well with knee immobilizer. Feels comfortable taking care of knee and of drain at home. Objective Data Objective Data Vital Signs: Vital Signs Temp Pulse Resp BP Pulse Ox O2 Del Method O2 Flow Rate 97.5 F L 88 18 112/62 99 Room Air 2 12/05/24 06:31 12/05/24 06:31 12/05/24 06:31 12/05/24 06:31 12/05/24 06:31 12/05/24 06:31 11/30/24 15:20 Oxygen Flow Rate (L/min) 2 Oxygen Delivery Method Room Air Weight: 196 lb 3.382 oz Body Mass Index (BMI) 34.7 Intake & Output: Intake and Output for Last 24 Hours 12/03/24 12/04/24 12/05/24 23:59 23:59 23:59 Intake Total 840 / 840 1000 / 1000 100 / 100 Output Total 468 / 468 32 / 32 53 / 53 Balance 372 / 372 968 / 968 47 / 47 Lab / Micro Data 12/05/24 06:50 12/02/24 07:36 Labs: Laboratory Results - last 24 hr 12/05/24 06:50: WBC 7.4, RBC 3.30 L, Hgb 9.4 L, Hct 30.2 L, MCV 91.5, MCH 28.5, MCHC 31.1 L, RDW Std Deviation 49.3 H, RDW Coeff of Marielos 14.6, Plt Count 266, MPV 10.2, Immature Gran % (Auto) 4.700 H, Neut % (Auto) 72.0 H, Lymph % (Auto) 9.8 L , [place] % (Auto) 7.8, Eos % (Auto) 5.4 H, Baso % (Auto) 0.3, Absolute Neuts (auto) 5.3, Absolute Lymphs (auto) 0.73 L, Nucleated RBC % 0 Micro: Microbiology 11/30/24 Unknown Tissue - Knee Gram Stain - Final 11/30/24 Unknown Tissue - Knee Wound Culture - Final No growth aerobically. 11/30/24 Unknown Tissue - Knee Anaerobic Culture - Preliminary No growth in 48 hours. 11/30/24 Unknown Tissue - Knee Gram Stain - Final 11/30/24 Unknown Tissue - Knee Wound Culture - Final No growth aerobically. 11/30/24 Unknown Tissue - Knee Anaerobic Culture - Preliminary No growth in 48 hours. 11/30/24 Unknown Tissue - Knee Gram Stain - Final 11/30/24 Unknown Tissue - Knee Wound Culture - Final No growth aerobically. 11/30/24 Unknown Tissue - Knee Anaerobic Culture - Preliminary No growth in 48 hours. Physical Exam Const alert and oriented x3 General Appearance: cooperative Resp normal respiratory effort Resp Narrative: 1500 on IS Cardio regular rate Narrative: Ramirez in place, celar urine Extremity Extremity Narrative: RLE: Inspection: VAC in place over graft and incisions. Xeroform open to air on thigh no bleeding. No pressure points. Offloading heal (foam cushion offloading heel and no pressure sores at this time on the heel). Drains are all SS and strip well. Appropriate output. no fluid collections/hematoma at donor site or over knee. Motor: Plantarflexion and dorsiflexion intact. Sensation: Sensation to light touch intact in leg, ankle, and foot. LLE: SCD on the left leg. No swelling Peripheral Pulses: Yes pulses 2+ throughout Assessment & Plan Assessment/Plan (1) Infected prosthetic knee joint: PLAN: S/p right medial gastrocnemius flap reconstruction over the right knee following polyethylene exchange on 30 Nov 2024. Expected course thus far. Will arrange foot drop splint today for continued pressure offloading of the heal, until then will keep heal elevated off of the bed/chair and use the current foam dressing for padding. Continuing home Eliquis Continue SCD for DVT pxx on the LLE. IS for pulm toilet Continue Diltiazem for rate control Cefepime per ID (appreciate recommendations) until today, 05 December 2024, then we will transition to Doxycycline 100 mg PO BID for long-term suppression unless recent cultures grow something else (F/u final recommendations) WBAT from orthopedics standpoint. Will keep knee immobilizer/knee extension at all times. Cleared PT for home. Xeroform twice daily to skin graft on the flap. F/u in 1 week at the [facility]. DC today once ID final recommedations. Charges/Coding Procedures Integumentary [id number]: [id number] Global Visit
--- NOTE | 2024-12-05 09:22 | PCM.PN.HOSP ---
Subjective Subjective Doing well, no issues overnight. Ambulating in the hallway with a walker Objective Data Objective Data Vital Signs: Vital Signs Temp Pulse Resp BP Pulse Ox O2 Del Method O2 Flow Rate 97.5 F L 88 18 112/62 99 Room Air 2 12/05/24 06:31 12/05/24 06:31 12/05/24 06:31 12/05/24 06:31 12/05/24 06:31 12/05/24 06:31 11/30/24 15:20 Oxygen Flow Rate (L/min) 2 Oxygen Delivery Method Room Air Weight: 196 lb 3.382 oz Body Mass Index (BMI) 34.7 Intake & Output: Intake and Output for Last 24 Hours 12/04/24 12/05/24 12/06/24 03:59 03:59 03:59 Intake Total 840 / 840 1100 / 1100 100 / 100 Output Total 480 / 480 60 / 60 13 / 13 Balance 360 / 360 1040 / 1040 87 / 87 Lab / Micro Data 12/05/24 06:50 12/02/24 07:36 Labs: Laboratory Results - last 24 hr 12/05/24 06:50: WBC 7.4, RBC 3.30 L, Hgb 9.4 L, Hct 30.2 L, MCV 91.5, MCH 28.5, MCHC 31.1 L, RDW Std Deviation 49.3 H, RDW Coeff of Marielos 14.6, Plt Count 266, MPV 10.2, Immature Gran % (Auto) 4.700 H, Neut % (Auto) 72.0 H, Lymph % (Auto) 9.8 L, [place] % (Auto) 7.8, Eos % (Auto) 5.4 H, Baso % (Auto) 0.3, Absolute Neuts (auto) 5.3, Absolute Lymphs (auto) 0.73 L, Nucleated RBC % 0 Micro: Microbiology 11/30/24 Unknown Tissue - Knee Gram Stain - Final 11/30/24 Unknown Tissue - Knee Wound Culture - Final No growth aerobically. 11/30/24 Unknown Tissue - Knee Anaerobic Culture - Preliminary No growth in 48 hours. 11/30/24 Unknown Tissue - Knee Gram Stain - Final 11/30/24 Unknown Tissue - Knee Wound Culture - Final No growth aerobically. 11/30/24 Unknown Tissue - Knee Anaerobic Culture - Preliminary No growth in 48 hours. 11/30/24 Unknown Tissue - Knee Gram Stain - Final 11/30/24 Unknown Tissue - Knee Wound Culture - Final No growth aerobically. 11/30/24 Unknown Tissue - Knee Anaerobic Culture - Preliminary No growth in 48 hours. Physical Exam Narrative General: Alert, Oriented x3, Cooperative, No apparent distress HEENT: Atraumatic, PERRLA, EOMI, Normocephalic Oral: Moist Mucosa Neck: Supple, No JVD Lungs: Diminished, Normal air movement, No rhonchi, No wheeze, No rales Cardiovascular: Irregular rate and rhythm, Normal S1, Normal S2, No murmurs Abdomen: Soft, Non Tender, Non-Distended, No Hepato-splenomegaly Extremities: No edema, Capillary Refill Less than 3 Seconds Skin: Dressings intact Musculoskeletal: No Tenderness to Palpation of Joints or Extremities Neurological: No focal neurological deficits, Motor Exam 5/5 strength throughout, Sensory exam intact to light touch and pain Psych/Mental Status: Normal Affect, Appropriate Assessment & Plan Assessment/Plan (1) Infected prosthetic knee joint: PLAN: Plan 1. 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 Pain management per primary ? PT/OT ? Continue with cefepime while inpatient, consult infectious disease today to verify discharge antibiotics ? So far repeat cultures are negative however she did have Pseudomonas and a coag negative staph growing from the knee culture on 11/10/2024 ? Appears to be stable for discharge once we have finalized antibiotic recommendations 2. Essential HTN/HLD/paroxysmal A-fib ? Continue with Eliquis ? Continue with Cardizem, she did have an episode of tachycardia today with ambulation it appears that this has normalized. ? Will monitor and make adjustments as necessary DVT: Eliquis Charges/Coding Visit Charges Inpatient E&M: 54986 Subs Hosp L2
[2024-12-05 09:38] VITALS: BP 115/54; PULSE 102; RESP 16; TEMP 36.6; O2SAT 98
[2024-12-05 09:38] LABS: Anion Gap 11 (5-15); BUN 15 mg/dL (4-19); BUN/Creat Ratio 30.3 RATIO (10-20); Calcium 8.5 mg/dL (7.6-11.0); Carbon Dioxide 24.3 mmol/L (22.0-29.0); Chloride 105 mmol/L (96-108); Creatinine, Serum 0.49 mg/dL (0.70-1.20); EST Glomerular Filtration Rate 100 (>60); Estimated Creatinine Clearance 67.27 ml/min (50-250); Glucose 98 mg/dL (70-99); Potassium 3.4 mmol/L (3.3-5.1); Sodium Level 140 mmol/L (133-145)
[2024-12-05 11:31] VITALS: BP 115/63; PULSE 100; RESP 16; TEMP 36.9; O2SAT 96
--- NOTE | 2024-12-05 13:35 | PCM.CONS.GEN ---
Assessment & Plan Assessment/Plan (1) Infected prosthetic knee joint: PLAN: Strep R knee PJI, dx 10/2024. Had wound cx 11/10/24 with rare PsA and CoNS. Has been on iv cefepime, now s/p OR 11/30/[address] Chisholm and Dr. Velásquez for I&D and muscle flap. Surg cx neg so far. Ok for discharge home, picc removal, and long course suppressive po abx with ID followup in 2 weeks. Will write for doxy and keflex. Will follow, thank you HPI Consult Data Date of Consult: 12/05/24 HPI Narrative Reason for Consultation: PJI HPI Narrative: KRISTA TALAVERA, is a 74 F with R knee PJI 10/2024, cxs with strep, discharged 6 weeks iv ceftriaxone. Had fever, wound breakdown, and was admitted early Nov. Wound vac placed, cxs with rare PsA and CoNS. Sent out on cefepime, planned stop date 12/02. Did well since discharge, now admitted and taken to OR 11/30 for poly exchange and muscle flap. Feeling well today, no fever, no n/v/d. Full ROS performed and neg except as noted above. [facility] Medical History Loss of hearing History of steroid therapy Uses wheelchair Walker as ambulation aid Bladder disease Heartburn History of edema History of stress test History of echocardiogram Cardiology follow-up encounter Essential hypertension Other acute postprocedural pain Wears glasses Arthritis Migraine headache Former smoker History of pain when walking Anticoagulant long-term use Paroxysmal atrial fibrillation Anxiety Obesity Paroxysmal supraventricular tachycardia Dizziness Palpitations Uterovaginal prolapse, incomplete Home Medications ?Medication ?Instructions ?Recorded ?Last Taken ?Type acetaminophen 500 mg tablet 1,000 mg PO Q8 PRN pain 07/23/22 10/13/24 01:00 History ascorbic acid (vitamin C) 500 mg 500 mg PO QAM osteoporosis 05/31/24 11/29/24 History tablet (Vitamin C) cholecalciferol (vitamin D3) 25 25 mcg PO QDAY SUPPLEMENT 05/31/24 11/29/24 History mcg (1,000 unit) tablet apixaban 5 mg tablet (Eliquis) 5 mg PO BID BLOOD THINNER #180 tabs 08/26/24 11/27/24 Rx magnesium oxide 400 mg (241.3 mg 400 mg PO QHS SUPPLEMENT 10/03/24 11/29/24 History magnesium) tablet hydroxyzine HCl 25 mg tablet 25 mg PO QHS PRN PRN anxiety 11/09/24 11/29/24 History quetiapine 25 mg tablet 25 mg PO DAILY SLEEP 11/09/24 11/29/24 22:30 History diltiazem HCl 240 mg 240 mg PO QHS HEART #30 caps 11/15/24 11/29/24 22:30 Rx capsule,extended release 24 hr (Cartia XT) doxycycline hyclate 100 mg capsule 100 mg PO BID #60 caps 12/05/24 Unknown Rx Allergy/AdvReac Type Severity Reaction Status Date / Time metoprolol AdvReac Mild Nausea Verified 11/30/24 06:27 flecainide AdvReac nausea Verified 11/30/24 06:27 Family History Mother CAD (coronary artery disease) Myocardial infarction, Onset Age: 80 Father Asthma COPD (chronic obstructive pulmonary disease) Brother Colon cancer COPD (chronic obstructive pulmonary disease) Former smoker Grandmother Breast cancer Grandfather Colon cancer Surgical History Hx of knee surgery History of knee replacement (02/18/24) History of total hip arthroplasty (05/08/21) Hx of total hip arthroplasty History of esophagogastroduodenoscopy (EGD) Hx of colonoscopy History of bladder suspension procedure (2017) H/O total hysterectomy (2017) Social History household members: spouse Smoking Status: Former smoker how long ago did patient quit smokin years ago alcohol intake: never substance use type: does not use caffeine: Yes Type: coffee Number of servings: 2 Physical Exam Const alert, oriented x3 and no apparent distress General Appearance: cooperative HEENT normocephalic and head/scalp atraumatic Eyes PERRL and EOMs intact bilaterally Neck supple and No nodes Resp normal air movement and clear to auscultation bilaterally Cardio regular rate and regular rhythm GI soft to palpation, non-tender and non-distended Extremity General Extremity: Negative for edema Skin Skin Narrative: RLE wrapped Neuro CN's II-XII intact bilaterally Lab / Micro Data Attestation: I reviewed the patient's lab results. 12/05/24 06:50 12/05/24 06:50 Labs: Laboratory Results - last 24 hr 12/05/24 06:50: WBC 7.4, RBC 3.30 L, Hgb 9.4 L, Hct 30.2 L, MCV 91.5, MCH 28.5, MCHC 31.1 L, RDW Std Deviation 49.3 H, RDW Coeff of Marielos 14.6, Plt Count 266, MPV 10.2, Immature Gran % (Auto) 4.700 H, Neut % (Auto) 72.0 H, Lymph % (Auto) 9.8 L, [place] % (Auto) 7.8, Eos % (Auto) 5.4 H, Baso % (Auto) 0.3, Absolute Neuts (auto) 5.3, Absolute Lymphs (auto) 0.73 L, Nucleated RBC % 0, Sodium 140, Potassium 3.4, Chloride Direct 105, Carbon Dioxide 24.3, Anion Gap 11, BUN 15, Creatinine 0.49 L, Estim Creat Clear Calc 67.27, Est GFR (MDRD) Non-Af 100, BUN/Creatinine Ratio 30.3 H, Glucose 98, Calcium 8.5 Micro: Microbiology 11/30/24 Unknown Tissue - Knee Gram Stain - Final 11/30/24 Unknown Tissue - Knee Wound Culture - Final No growth aerobically. 11/30/24 Unknown Tissue - Knee Anaerobic Culture - Final No anaerobic bacteria isolated. 11/30/24 Unknown Tissue - Knee Gram Stain - Final 11/30/24 Unknown Tissue - Knee Wound Culture - Final No growth aerobically. 11/30/24 Unknown Tissue - Knee Anaerobic Culture - Final No anaerobic bacteria isolated. 11/30/24 Unknown Tissue - Knee Gram Stain - Final 11/30/24 Unknown Tissue - Knee Wound Culture - Final No growth aerobically. 11/30/24 Unknown Tissue - Knee Anaerobic Culture - Final No anaerobic bacteria isolated.
--- NOTE | 2024-12-05 14:06 | CASEMGMT ---
TEENA SIMMS into pt room, pt has several visitors in the room with her. TEENA SIMMS confirmed with pt she is still wanting [facility] services through [facility] for SN and PT. Pt denies any question or concerns or additional needs at this time. TEENA SIMMS put resumption of care order in.
--- NOTE | 2024-12-05 15:29 | PCM.DC.SUM ---
Providers Date of Admission: 11/30/24 Date of Discharge: 12/05/24 Primary Care Physician: Dr. Damian Craig MD Consultations 11/30/24 08:13 Consult: Hospitalist Routine Consulting Provider: Raymond Patricio Reason for Consult: Multiple comorbidities EMERGENT Consult: No Notified: Yes Date Notified: 11/30/24 Time Notified: 12:30 Method of Notification: Verbal 12/01/24 08:22 Consult: Onc/Wound/research hydrologist Routine Comment: Reason for Consult:: right knee 12/05/24 07:28 Consult: Infectious Disease Routine Consulting Provider: Ariel Traylor Reason for Consult: antibiotic recommendations after infected knee surgery EMERGENT Consult: No MD Notified: Yes Date Notified: 12/05/24 Time Notified: 07:28 Method of Notification: Text Reason For Visit: I&D with Poly Exchange, Knee COMBO WITH SISKA Diagnosis Discharge Diagnosis (1) Infected prosthetic knee joint: Status: Acute Code(s): T84.59XA - Infection and inflammatory reaction due to other internal joint prosthesis, initial encounter; Z96.659 - Presence of unspecified artificial knee joint Medications at Discharge Home Medications acetaminophen 500 mg tablet 1,000 mg PO Q8 PRN pain 07/23/22 ascorbic acid (vitamin C) 500 mg tablet (Vitamin C) 500 mg PO QAM osteoporosis 05/31/24 cholecalciferol (vitamin D3) 25 mcg (1,000 unit) tablet 25 mcg PO QDAY SUPPLEMENT 05/31/24 apixaban 5 mg tablet (Eliquis) 5 mg PO BID BLOOD THINNER #180 tabs 08/26/24 magnesium oxide 400 mg (241.3 mg magnesium) tablet 400 mg PO QHS SUPPLEMENT 10/03/24 hydroxyzine HCl 25 mg tablet 25 mg PO QHS PRN PRN anxiety 11/09/24 quetiapine 25 mg tablet 25 mg PO DAILY SLEEP 11/09/24 diltiazem HCl 240 mg capsule,extended release 24 hr (Cartia XT) 240 mg PO QHS HEART #30 caps 11/15/24 cephalexin 500 mg capsule 500 mg PO TID #90 caps 12/05/24 doxycycline hyclate 100 mg capsule 100 mg PO BID #60 caps 12/05/24 ondansetron 4 mg disintegrating tablet 4 mg PO Q8H PRN nausea and vomiting 7 days #20 tabs 12/05/24 Hospital Course Operations - ( Irrigation debridement polyethylene exchange complete synovectomy right knee and gastrocnemius muscle flap and skin graft) Summary of Care Provided Minutes Spent on Discharge: 25 Hospital Course: Surgery 11/30/[address] Velásquez for Irrigation debridement polyethylene exchange complete synovectomy right knee. and Dr. Chisholm 1) Right medial gastrocnemius rotational muscle flap for coverage of the right knee wound. 2) Split-thickness skin graft, right thigh to the right medial gastrocnemius flap, 2 x 3 cm graft. 3) Use of fluorescence angiography for assessment of flap (following dissection and inset) intra-operatively (using SPY machine). ID consulted and he stated : Strep R knee PJI, dx 10/2024. Had wound cx 11/10/24 with rare PsA and CoNS. Has been on iv cefepime, now s/p OR 11/30/[address] Chisholm and Dr. Velásquez for I&D and muscle flap. Surg cx neg so far. Ok for discharge home, picc removal, and long course suppressive po abx with ID followup in 2 weeks. Will write for doxy and keflex. She will continue Eliquis at home. Physical Exam Narrative Const alert and oriented x3 General Appearance: cooperative Resp normal respiratory effort Resp Narrative: 1500 on IS Cardio regular rate Narrative: Ramirez in place, celar urine Extremity Extremity Narrative: RLE: Inspection: VAC in place over graft and incisions. Xeroform open to air on thigh no bleeding. No pressure points. Offloading heal (foam cushion offloading heel and no pressure sores at this time on the heel). Drains are all SS and strip well. Appropriate output. no fluid collections/hematoma at donor site or over knee. Motor: Plantarflexion and dorsiflexion intact. Sensation: Sensation to light touch intact in leg, ankle, and foot. LLE: SCD on the left leg. No swelling Peripheral Pulses: Yes pulses 2+ throughout Weight / BMI Weight Weight: 196 lb 3.382 oz Body Mass Index (BMI) 34.7 ABG / Lab / Microbiology Data 12/05/24 06:50 12/05/24 06:50 Laboratory: Laboratory Results - last 24 hr 12/05/24 06:50: WBC 7.4, RBC 3.30 L, Hgb 9.4 L, Hct 30.2 L, MCV 91.5, MCH 28.5, MCHC 31.1 L, RDW Std Deviation 49.3 H, RDW Coeff of Marielos 14.6, Plt Count 266, MPV 10.2, Immature Gran % (Auto) 4.700 H, Neut % (Auto) 72.0 H, Lymph % (Auto) 9.8 L, [place] % (Auto) 7.8, Eos % (Auto) 5.4 H, Baso % (Auto) 0.3, Absolute Neuts (auto) 5.3, Absolute Lymphs (auto) 0.73 L, Nucleated RBC % 0, Sodium 140, Potassium 3.4, Chloride Direct 105, Carbon Dioxide 24.3, Anion Gap 11, BUN 15, Creatinine 0.49 L, Estim Creat Clear Calc 67.27, Est GFR (MDRD) Non-Af 100, BUN/Creatinine Ratio 30.3 H, Glucose 98, Calcium 8.5 Microbiology: Microbiology 11/30/24 Unknown Tissue - Knee Gram Stain - Final 11/30/24 Unknown Tissue - Knee Wound Culture - Final No growth aerobically. 11/30/24 Unknown Tissue - Knee Anaerobic Culture - Final No anaerobic bacteria isolated. 11/30/24 Unknown Tissue - Knee Gram Stain - Final 11/30/24 Unknown Tissue - Knee Wound Culture - Final No growth aerobically. 11/30/24 Unknown Tissue - Knee Anaerobic Culture - Final No anaerobic bacteria isolated. 11/30/24 Unknown Tissue - Knee Gram Stain - Final 11/30/24 Unknown Tissue - Knee Wound Culture - Final No growth aerobically. 11/30/24 Unknown Tissue - Knee Anaerobic Culture - Final No anaerobic bacteria isolated. D/C Instructions Discharge Diet: No restrictions (high protein intake to help with wound healing) Weight Bearing Status: Weight bearing as tolerated (with right knee immobilizer in place) Keep extremity elevated above heart level: Right Leg Additional Activity Instructions: Right knee immobilizer on for all activity and to sleep to prevent knee from bending. Call your doctor if your incision/area has: Continuous Slow Oozing, Sudden Increased Bleeding, Increased Pain/ Swelling, Increased Redness, Foul Smelling Discharge and Swelling at the incision site Call your doctor if you observe: Fever of 101 or Higher, Inability to have a bowel movement, Shortness of breath, Chest pain, Calf discomfort and Uncontrolled pain Drain: Suction (strip tubing 4-6 times per day. Record drainage output) Additional Dressing/Incision Instructions: Xeroform gauze dressing changes twice daily covered gauze or ABD. DC O2, CPAP, BIPAP Needs Home O2 Discharge instructions: No DC home with Oxygen: No Please Follow Up With: Ariel Chisholm MD When: Thursday December 12, 2024 at the [facility] [phone] Meaningful Use Info Meaningful Use Meaningful Use Diagnoses (Choose all that apply): None applicable Ischemic Stroke Statin Dosing Therapy Reference: STATIN DOSE THERAPY REFERENCE: * Patients > 75 years receive moderate or high dose statin therapy. * Patients 75 years or YOUNGER should receive HIGH intensity statin dose unless contraindicated. You will be required to document reason for non-treatment if statin daily dose does not meet guidelines. HIGH DOSE STATIN THERAPY DAILY Atorvastatin > than or = to 40 mg Rosuvastatin > than or = to 20 mg Amlodipine + Atorvastatin > than or = to 2.5/40 mg Ezetimibe + Simvastatin 10/80 mg Simvastatin 80mg Discharge Plan Admission Admit Date/Time: 11/30/24 13:27 Attending Provider: Elmo Velásquez Primary Care Provider: Damian Craig Consulting Providers: Ariel Chisholm; Raymond Patricio; Ariel Traylor Discharge Orders/Prescriptions Prescriptions: New doxycycline hyclate 100 mg capsule 100 mg PO BID Qty: 60 1RF cephalexin 500 mg capsule 500 mg PO TID Qty: 90 1RF ondansetron 4 mg tablet,disintegrating 4 mg PO Q8H PRN (Reason: nausea and vomiting) 7 Days Qty: 20 0RF Continued acetaminophen 500 mg tablet 1,000 mg PO Q8 PRN (Reason: pain) Rx Instructions: Do not take more than 3000 mg Tylenol in a 24-hour period. cholecalciferol (vitamin D3) 25 mcg (1,000 unit) tablet 25 mcg PO QDAY ascorbic acid (vitamin C) [Vitamin C] 500 mg tablet 500 mg PO QAM magnesium oxide 400 mg (241.3 mg magnesium) tablet 400 mg PO QHS quetiapine 25 mg tablet 25 mg PO DAILY Patient Comments: take one tablet at bedtime for 2 nights, then increase to 2 tablets. Took 1 tablet last night 11/08/24 hydroxyzine HCl 25 mg tablet 25 mg PO QHS PRN PRN (Reason: anxiety) diltiazem HCl [Cartia XT] 240 mg capsule,extended release 24hr 240 mg PO QHS Qty: 30 0RF Eliquis 5 mg tablet 5 mg PO BID Qty: 180 4RF Patient Comments: PER TO STOP PRE-OP Discontinued cefepime 2 gram Recon Soln 2 g IV Q8 17 Days Qty: 51 0RF Rx Instructions: stop date 12/02/24. Dx: PJI weekly bmp, cbc, and esr. Fax to [phone]. Routine picc care per protocol. Referrals / Follow Up: Damian Craig MD [Primary Care Provider] - Disposition Disposition (needs filled in before D/C Order can be placed): Home, Self Care Charges/Coding Procedures Integumentary [id number]: [id number] Global Visit
--- NOTE | 2024-12-05 15:54 | CASEMGMT ---
TEENA SIMMS noted DC orders, medications went to 2 different pharmacy's. TEENA SIMMS into pt room, pt states she would like medication that went to [facility] to be delivered to room. Pt states she will pick the two meds up at [facility]. Denies questions or concerns at this time. TEENA SIMMS called [facility] retail pharmacy and requested med be delivered to room. Notified Pt pharmacy will call for payment. Pt agreeable.
== END 2024-12-05 17:19 | disposition home or self-care (01) | DRG 464 ==
PROVIDERS: Family Medicine; Surgery Plastic and Reconstructive Surgery; Admitting Provider Specialist; PCP Family Medicine; Referring Provider Specialist; Visit Provider Specialist
PROC: 0SPC09Z Removal of Liner from Right Knee Joint, Open Approach (ICD-10-PCS; CPT 27301; principal; 2024-11-30 07:10)
PROC: 0HRKX74 Replacement of Right Lower Leg Skin with Autologous Tissue Substitute, Partial Thickness, External Approach (ICD-10-PCS; 2024-11-30 07:10)
DX: T84.53XA Infection and inflammatory reaction due to internal right knee prosthesis, initial encounter (principal); I47.10 Supraventricular tachycardia, unspecified; I10 Essential (primary) hypertension; I48.0 Paroxysmal atrial fibrillation; S81.001A Unspecified open wound, right knee, initial encounter; E78.5 Hyperlipidemia, unspecified; Z79.01 Long term (current) use of anticoagulants; Z96.651 Presence of right artificial knee joint; Z87.891 Personal history of nicotine dependence; Y79.2 Prosthetic and other implants, materials and accessory orthopedic devices associated with adverse incidents
CPT/HCPCS: 36415; 75801; 80048; 85025; 87015; 87070; 87075; 87102; 87116; 87176; 87205; 87206; 94668; 97116; 97162; 97166; 97530; 97535; 97802; A4648; C1776; A4216; J0666; J2405

== ENCOUNTER 2024-12-26 09:45 | Outpatient (RCR) | payer MEDICARE, OTHER, SELFPAY ==
[2024-12-03 01:23] VITALS: BP 107/53; PULSE 115; RESP 20; TEMP 36.1; BMI 35.4
[2024-12-12 09:31] VITALS: BP 148/74; PULSE 104; RESP 16; TEMP 36.2; BMI 35.4
--- NOTE | 2024-12-12 10:52 | PCM.WC.PN ---
History of Present Illness Date of Service: 12/12/24 Chief Complaint: Right knee wound after infected arthroplasty History of Wound: HPI from 01 Nov 2024: Joselin Diane is a delightful 74-year-old female with past medical history of a right total knee arthroplasty in February 2024 who presented back to her arthroplasty surgeon Dr. Velásquez with an acute pyogenic right total knee infection earlier this month in October 2024 and was taken back to the operating room on 13 October 2024 for irrigation/debridement with complete synovectomy and a polyethylene exchange of the right knee. Per operative report, the joint was closed with layered 1-0 Vicryl interrupted sutures and the subcuticular layer was closed with 2-0 interrupted Vicryl sutures followed by isabella for the final skin closure. The patient was placed on IV antibiotics by infectious disease, as her cultures grew Streptococcus group G (currently on ceftriaxone per infectious disease consultation). She followed up with Dr. Velásquez in clinic and had some drainage and wound healing issues from the distal portions of the incision and at some point nylon stitches were used to bridge the gap and keep the wound together (isabella are out on exam today). Today she denies any fevers chills or any significant drainage. Of note the patient has atrial fibrillation and is chronically anticoagulated on Eliquis and also takes diltiazem for rate control and blood pressure. She is not a smoker. No history of diabetes. No personal or family history of bleeding or clotting problems or problems with anesthesia. Interval events following initial consultation: Patient was admitted to the hospital on 10 November 2024 for fevers and chills (was determined to be possibly secondary to COVID as she was having shortness of breath as well). The wound was examined and looked about the same as it did in clinic earlier in the week (no signs of mala pus or drainage from the joint). The joint was aspirated as there was concern for infection around the arthroplasty. Aspiration was negative for growth x 5 days and the decision was made by the arthroplasty surgeon to continue current treatment plan with plastics using wound VAC for superficial wound. Patient was discharged on continued cefepime per infectious disease as well as 3 times per week VAC changes and follow-up in the wound care center. Underwent debridement/polyethylene exchange with Dr. Velásquez (orthopedics) followed by immediate reconstruction with a medial gastrocnemius flap and skin graft on 30 November 2024. Subjective Subjective Doing well. No drainage. Pain controlled. She's been doing the drain care (still too much to remove drain today, ~30 cc per day). Pain controlled. Compliant with keeping her knee straight. Objective Data Objective Data Vital Signs: Vital Signs Temp Pulse Resp BP O2 Del Method 97.1 F L 104 H 16 148/74 H Room Air 12/12/24 09:31 12/12/24 09:31 12/12/24 09:31 12/12/24 09:31 12/12/24 09:31 Oxygen Delivery Method Room Air Weight: 200 lb Body Mass Index (BMI) 35.4 Charges/Coding Procedures Integumentary 111xxx-113xx: [id number] Global Visit Physical Exam Narrative >95% skin graft take over the muscle Wound healing nicely. Flap warm and viable. No drainage or signs of infection. Drain is SS. Incisions c/d/i Debridement Note Debridement Note Post-Debridement Measurements and Additional Note: Post-Debridement Measurements/Treatment - Nurse 1 - General Ulcer Assessment Start: 12/12/24 09:30 Freq: Status: Active Protocol: ABILIO Activity Type Activity Date Activity User E-sign Co-sign Detail Recorded Client Recorded Date Recorded By Document 12/12/24 09:31 [facility] [id number] 12/12/24 09:36 [facility] 12/12/24 09:31 - Today's Visit Information Type of service Follow-up Visit (Physician/RESIDENTIAL TREATMENT STAFF ) Arrival Mode Ambulatory, Walker Transfer Assistance None Accompanied by Patient Identification Verified (Name & Yes ) Patient Requires Transmission-Based No Precautions Height and Weight Body Mass Index (BMI) 35.4 BMI Classification Obese Vital Signs Temperature (97.8 F-99.1 F) 97.1 F L Temperature Source Temporal Pulse Rate (60-100) 104 H Pulse Location Monitor Respiratory Rate (12-18) 16 Respiratory rate source Observation Oxygen Delivery Method Room Air Blood Pressure (90/60-120/80) 148/74 H Blood Pressure Mean (mm Hg) 98 Source Monitor Position Sitting Blood Pressure Location Left Arm History Since Last Visit- (Skip if this is Patient's initial visit) Have you changed medications since your No last visit? Any new allergies or adverse reactions No Had a fall/change in ADL's that may No increase risk of falls Signs or symptoms of abuse and/or No neglect since last visit Have you been in the hospital since your Yes last visit? Has dressing in place as prescribed Yes Has compression in place as prescribed Yes Has offloadiing in place as prescribed Yes Experienced any changes in pain level or No management Left Footwear Regular Shoe Right Footwear Regular Shoe Other Footwear r knee brace/ immobilizer Pain Scale: 0-10 Numeric Is Patient Pain Free? Yes BLACK - Nurse 1 - General Ulcer Measurement Start: 12/12/24 09:30 Freq: Status: Active Protocol: Activity Type Activity Date Activity User E-sign Co-sign Detail Recorded Client Recorded Date Recorded By Document 12/12/24 09:31 BM [id number] 12/12/24 09:36 BM 12/12/24 09:31 Wound Center Nurse 1 #3- R LAT THIGH DONOR SITE -Combined with other wound No -Current Size (cm) - Length 0.1 -Current Size (cm) - Width 0.1 -Current Size (cm) - Depth 0.1 -Total Square Cm 0.01 -Date of Last Picture (Recall this 12/12/24 field) -Photo Taken Yes -Wound Comment(s) XEROFORM SUTURED IN PLACE #2- R MED LEG POST OP INCISION SITE -Combined with other wound No -Current Size (cm) - Length 0.1 -Current Size (cm) - Width 0.1 -Current Size (cm) - Depth 0.1 -Total Square Cm 0.01 -Date of Last Picture (Recall this 12/12/24 field) -Photo Taken Yes -Wound Comment(s) ISABELLA #1- R KNEE INCISION POST OP -Combined with other wound No -Current Size (cm) - Length 0.1 -Current Size (cm) - Width 0.1 -Current Size (cm) - Depth 0.1 -Total Square Cm 0.01 -Date of Last Picture (Recall this 12/12/24 field) -Photo Taken Yes -Wound Comment(s) isabella BLACK - Nurse 2 - General Ulcer CM Notes Start: 12/12/24 09:30 Freq: Status: Active Protocol: Activity Type Activity Date Activity User E-sign Co-sign Detail Recorded Client Recorded Date Recorded By Document 12/12/24 10:07 DS [id number] 12/12/24 10:13 DS 12/12/24 10:07 Wound Center Nurse 2 #3- R LAT THIGH DONOR SITE -Time 10:12 -Correct Patient Yes -Procedure Performed No -Post Debridement (cm) - Length 3.2 -Post Debridement (cm) - Width 4.5 -Post Debridement (cm) - Depth 0.1 -Total Square (Post) (cm) 14.40 -Area of Debridement (cm) - Length 3.2 -Area of Debridement (cm) - Width 4.5 -Total Square (Area) (cm) 14.40 -Tunneling No -Undermining/Tunneling No -Circular Undermining No -Wound/Ulcer Outcome Not Healed #2- R MED LEG POST OP INCISION SITE -Time 10:13 -Correct Patient Yes -Procedure Performed No -Post Debridement (cm) - Length 4.3 -Post Debridement (cm) - Width 1.7 -Post Debridement (cm) - Depth 0.1 -Total Square (Post) (cm) 7.31 -Area of Debridement (cm) - Length 4.3 -Area of Debridement (cm) - Width 1.7 -Total Square (Area) (cm) 7.31 -Tunneling No -Undermining/Tunneling No -Circular Undermining No -Wound/Ulcer Outcome Not Healed #1- R KNEE INCISION POST OP -Time 10:13 -Correct Patient Yes -Procedure Performed No Pain Scale: 0-10 Numeric Is Patient Pain Free? Yes WC - Nurse 3 - General Ulcer D/C NN Start: 12/12/24 09:30 Freq: Status: Active Protocol: Activity Type Activity Date Activity User E-sign Co-sign Detail Recorded Client Recorded Date Recorded By Document 12/12/24 10:21 [facility] [id number] 12/12/24 10:23 [facility] 12/12/24 10:21 Wound Care Center Nurse 3 #3- R LAT THIGH DONOR SITE -Other Dressing AQUAPHOR AT HOME; DRSG PER KW MANAGER CORPORATE RESPONSIBILITY -Primary Dressing Covered/Secured with Dry Gauze, Secured with Tape -Wound Comment(s) DRSG PER KW MANAGER CORPORATE RESPONSIBILITY #2- R MED LEG POST OP INCISION SITE -Other Dressing ABD SECURED W/ BENI TO PAD/ PROTECT PER KW MANAGER CORPORATE RESPONSIBILITY #1- R KNEE INCISION POST OP -Ulcer Cleansing Rinsed/ Irrigated with Saline -Foul Odor after Cleansing No -Primary Dressing Applied NonAdherent Contact Layer -Other Dressing ABD; DRSG PER KW MANAGER CORPORATE RESPONSIBILITY -Other Covering BENI TO SECURE Pain Scale: 0-10 Numeric Is Patient Pain Free? Yes WC - Visit Discharge Discharge Condition Stable Ambulatory Status Ambulatory, Walker Transportation Private Auto Accompanied by Facility Type Home Health Assessment/Plan Assessment/Plan (1) Infected prosthetic knee joint: CODE(S): T84.59XA - Infection and inflammatory reaction due to other internal joint prosthesis, initial encounter; Z96.659 - Presence of unspecified artificial knee joint PLAN: Plan Expected course Continue XF changes to the skin graft daily. Continue knee straight at all times with knee immoblizer (4 weeks) Anticipate drain and staple removal next week F/u in 1 week
--- NOTE | 2024-12-12 15:36 | WC ---
PHOTO 12/12/24 RIGHT KNEE
--- NOTE | 2024-12-12 15:37 | WC ---
PHOTO 12/12/24 RIGHT MED LEG INCISION
--- NOTE | 2024-12-12 15:37 | WC ---
PHOTO 12/12/24 RIGHT THIGH LAT POST-OP
[2024-12-19 09:21] VITALS: BP 127/51; PULSE 90; RESP 20; TEMP 36.3; BMI 35.4
--- NOTE | 2024-12-19 10:06 | PCM.WC.PN ---
History of Present Illness Date of Service: 12/19/24 Chief Complaint: Right knee wound after infected arthroplasty History of Wound: HPI from 01 Nov 2024: Joselin Diane is a delightful 74-year-old female with past medical history of a right total knee arthroplasty in February 2024 who presented back to her arthroplasty surgeon Dr. Velásquez with an acute pyogenic right total knee infection earlier this month in October 2024 and was taken back to the operating room on 13 October 2024 for irrigation/debridement with complete synovectomy and a polyethylene exchange of the right knee. Per operative report, the joint was closed with layered 1-0 Vicryl interrupted sutures and the subcuticular layer was closed with 2-0 interrupted Vicryl sutures followed by isabella for the final skin closure. The patient was placed on IV antibiotics by infectious disease, as her cultures grew Streptococcus group G (currently on ceftriaxone per infectious disease consultation). She followed up with Dr. Velásquez in clinic and had some drainage and wound healing issues from the distal portions of the incision and at some point nylon stitches were used to bridge the gap and keep the wound together (isabella are out on exam today). Today she denies any fevers chills or any significant drainage. Of note the patient has atrial fibrillation and is chronically anticoagulated on Eliquis and also takes diltiazem for rate control and blood pressure. She is not a smoker. No history of diabetes. No personal or family history of bleeding or clotting problems or problems with anesthesia. Interval events following initial consultation: Patient was admitted to the hospital on 10 November 2024 for fevers and chills (was determined to be possibly secondary to COVID as she was having shortness of breath as well). The wound was examined and looked about the same as it did in clinic earlier in the week (no signs of mala pus or drainage from the joint). The joint was aspirated as there was concern for infection around the arthroplasty. Aspiration was negative for growth x 5 days and the decision was made by the arthroplasty surgeon to continue current treatment plan with plastics using wound VAC for superficial wound. Patient was discharged on continued cefepime per infectious disease as well as 3 times per week VAC changes and follow-up in the wound care center. Underwent debridement/polyethylene exchange with Dr. Velásquez (orthopedics) followed by immediate reconstruction with a medial gastrocnemius flap and skin graft on 30 November 2024. Subjective Subjective 12 December 2024: Doing well. No drainage. Pain controlled. She's been doing the drain care (still too much to remove drain today, ~30 cc per day). Pain controlled. Compliant with keeping her knee straight. CURRENT ENCOUNTER, 19 December 2024: Doing well. No fevers or chills. <20 cc per day out from drain. Compliant with knee extension/immobilizer. Objective Data Objective Data Vital Signs: Vital Signs Temp Pulse Resp BP O2 Del Method 97.4 F L 90 20 H 127/51 H Room Air 12/19/24 09:21 12/19/24 09:21 12/19/24 09:21 12/19/24 09:21 12/12/24 09:31 Oxygen Delivery Method Room Air Weight: 200 lb Body Mass Index (BMI) 35.4 Charges/Coding Procedures Integumentary 111xxx-113xx: [id number] Global Visit Physical Exam Narrative 90% skin graft take over the muscle Open area inferiorly (down to muscle flap) Flap warm and viable. No drainage or signs of infection. Drain is SS. Incisions c/d/i Debridement Note Debridement Note No debridement was completed: No debridement was completed today Post-Debridement Measurements and Additional Note: Post-Debridement Measurements/Treatment - Nurse 1 - General Ulcer Assessment Start: 12/12/24 09:30 Freq: Status: Active Protocol: ABILIO Activity Type Activity Date Activity User E-sign Co-sign Detail Recorded Client Recorded Date Recorded By Document 12/12/24 09:31 [facility] [id number] 12/12/24 09:36 BM Document 12/19/24 09:21 DL [id number] 12/19/24 09:30 DL 12/12/24 12/19/24 09:31 09:21 - Today's Visit Information Type of service Follow-up Visit Follow-up Visit (Physician/SHAKE OUT WORKER (Physician/SHAKE OUT WORKER ) ) Arrival Mode Ambulatory, Ambulatory, Walker Walker Transfer Assistance None Transfer Board Accompanied by Patient Identification Verified (Name & Yes Yes ) Patient Requires Transmission-Based No No Precautions Height and Weight Body Mass Index (BMI) 35.4 35.4 BMI Classification Obese Obese Vital Signs Temperature (97.8 F-99.1 F) 97.1 F L 97.4 F L Temperature Source Temporal Temporal Pulse Rate (60-100) 104 H 90 Pulse Location Monitor Monitor Respiratory Rate (12-18) 16 20 H Respiratory rate source Observation Observation Oxygen Delivery Method Room Air Blood Pressure (90/60-120/80) 148/74 H 127/51 H Blood Pressure Mean (mm Hg) 98 76 Source Monitor Monitor Position Sitting Blood Pressure Location Left Arm History Since Last Visit- (Skip if this is Patient's initial visit) Have you changed medications since your No No last visit? Any new allergies or adverse reactions No No Had a fall/change in ADL's that may No No increase risk of falls Signs or symptoms of abuse and/or No No neglect since last visit Have you been in the hospital since your Yes No last visit? Has dressing in place as prescribed Yes Yes Has compression in place as prescribed Yes Yes Has offloadiing in place as prescribed Yes Yes Experienced any changes in pain level or No No management Left Footwear Regular Shoe Right Footwear Regular Shoe Other Footwear r knee brace/ immobilizer Pain Scale: 0-10 Numeric Is Patient Pain Free? Yes Yes WC - Nurse 1 - General Ulcer Measurement Start: 12/12/24 09:30 Freq: Status: Active Protocol: Activity Type Activity Date Activity User E-sign Co-sign Detail Recorded Client Recorded Date Recorded By Document 12/12/24 09:31 [facility] [id number] 12/12/24 09:36 BM Document 12/19/24 09:21 DL [id number] 12/19/24 09:30 DL 12/12/24 12/19/24 09:31 09:21 Wound Center Nurse 1 #3- R LAT THIGH DONOR SITE -Combined with other wound No -Current Size (cm) - Length 0.1 0.1 -Current Size (cm) - Width 0.1 0.1 -Current Size (cm) - Depth 0.1 0.1 -Total Square Cm 0.01 0.01 -Date of Last Picture (Recall this 12/12/24 field) -Photo Taken Yes -Exudate Amt None Present -Wound Margin Distinct, Outline Attached -Granulation Amt Large (67-100%) -Granulation Quality [place] -Necrosis Amt None Present (0 %) -Structure Exposed N/A -Texture (Nancy-wound Skin Appearance) Scarring -Moisture (Nancy-wound Skin Appearance) No Abnormality -Color (Nancy-wound Skin Appearance) No Abnormality -Temperature (Nancy-wound Skin No Abnormality Appearance) (Pt Warm) -Tenderness on Palpation (Nancy-wound No Skin Appearance) -Ulcer Cleansing Soap and Water -Foul Odor after Cleansing No -Wound Comment(s) XEROFORM SUTURED IN PLACE #2- R MED LEG POST OP INCISION SITE -Combined with other wound No -Current Size (cm) - Length 0.1 0.1 -Current Size (cm) - Width 0.1 0.1 -Current Size (cm) - Depth 0.1 0.1 -Total Square Cm 0.01 0.01 -Date of Last Picture (Recall this 12/12/24 field) -Photo Taken Yes Yes -Exudate Amt None Present -Wound Margin Distinct, Outline Attached -Granulation Amt Large (67-100%) -Granulation Quality [place] -Necrosis Amt None Present (0 %) -Structure Exposed N/A -Texture (Nancy-wound Skin Appearance) Scarring -Moisture (Nancy-wound Skin Appearance) No Abnormality -Color (Nancy-wound Skin Appearance) No Abnormality -Temperature (Nancy-wound Skin No Abnormality Appearance) (Pt Warm) -Ulcer Cleansing Soap and Water -Foul Odor after Cleansing No -Wound Comment(s) ISABELLA incision well approximated, isabella intact. #1- R KNEE INCISION POST OP -Combined with other wound No -Current Size (cm) - Length 0.1 0.1 -Current Size (cm) - Width 0.1 0.1 -Current Size (cm) - Depth 0.1 0.1 -Total Square Cm 0.01 0.01 -Date of Last Picture (Recall this 12/12/24 field) -Photo Taken Yes Yes -Exudate Amt None Present -Wound Margin Distinct, Outline Attached -Granulation Amt Large (67-100%) -Granulation Quality Pale -Necrosis Amt None Present (0 %) -Structure Exposed N/A -Texture (Nancy-wound Skin Appearance) Scarring -Moisture (Nancy-wound Skin Appearance) No Abnormality, Not Assessed -Color (Nancy-wound Skin Appearance) No Abnormality -Temperature (Nancy-wound Skin No Abnormality Appearance) (Pt Warm) -Tenderness on Palpation (Nancy-wound No Skin Appearance) -Ulcer Cleansing Soap and Water -Foul Odor after Cleansing No -Wound Comment(s) isabella incision well approximated, isabella intact. WC - Nurse 2 - General Ulcer CM Notes Start: 12/12/24 09:30 Freq: Status: Active Protocol: Activity Type Activity Date Activity User E-sign Co-sign Detail Recorded Client Recorded Date Recorded By Document 12/12/24 10:07 DS [id number] 12/12/24 10:13 DS Document 12/19/24 09:55 JF [id number] 12/19/24 09:56 JF 12/12/24 12/19/24 10:07 09:55 Wound Center Nurse 2 #3- R LAT THIGH DONOR SITE -Time 10:12 -Correct Patient Yes No -Correct Side, Site, Position No -Correct Procedure No -Procedure Performed No No -Post Debridement (cm) - Length 3.2 0 -Post Debridement (cm) - Width 4.5 0 -Post Debridement (cm) - Depth 0.1 0 -Total Square (Post) (cm) 14.40 0 -Area of Debridement (cm) - Length 3.2 0 -Area of Debridement (cm) - Width 4.5 0 -Total Square (Area) (cm) 14.40 0 -Tunneling No -Undermining/Tunneling No -Circular Undermining No -Wound/Ulcer Outcome Not Healed Healed- Epithelialized #2- R MED LEG POST OP INCISION SITE -Time 10:13 -Correct Patient Yes No -Correct Side, Site, Position No -Correct Procedure No -Procedure Performed No No -Post Debridement (cm) - Length 4.3 0.1 -Post Debridement (cm) - Width 1.7 0.1 -Post Debridement (cm) - Depth 0.1 0.1 -Total Square (Post) (cm) 7.31 0.01 -Area of Debridement (cm) - Length 4.3 0.1 -Area of Debridement (cm) - Width 1.7 0.1 -Total Square (Area) (cm) 7.31 0.01 -Tunneling No -Undermining/Tunneling No -Circular Undermining No -Wound/Ulcer Outcome Not Healed Not Healed #1- R KNEE INCISION POST OP -Time 10:13 -Correct Patient Yes No -Correct Side, Site, Position No -Correct Procedure No -Procedure Performed No No -Post Debridement (cm) - Length 0.1 -Post Debridement (cm) - Width 0.1 -Post Debridement (cm) - Depth 0.1 -Total Square (Post) (cm) 0.01 -Area of Debridement (cm) - Length 0.1 -Area of Debridement (cm) - Width 0.1 -Total Square (Area) (cm) 0.01 -Wound/Ulcer Outcome Not Healed Pain Scale: 0-10 Numeric Is Patient Pain Free? Yes Yes - Nurse 3 - General Ulcer D/C NN Start: 12/12/24 09:30 Freq: Status: Active Protocol: Activity Type Activity Date Activity User E-sign Co-sign Detail Recorded Client Recorded Date Recorded By Document 12/12/24 10:21 [facility] [id number] 12/12/24 10:23 [facility] 12/12/24 10:21 Wound Care Center Nurse 3 #3- R LAT THIGH DONOR SITE -Other Dressing AQUAPHOR AT HOME; DRSG PER KW EXTRUSION FORMER -Primary Dressing Covered/Secured with Dry Gauze, Secured with Tape -Wound Comment(s) DRSG PER KW EXTRUSION FORMER #2- R MED LEG POST OP INCISION SITE -Other Dressing ABD SECURED W/ BENI TO PAD/ PROTECT PER KW EXTRUSION FORMER #1- R KNEE INCISION POST OP -Ulcer Cleansing Rinsed/ Irrigated with Saline -Foul Odor after Cleansing No -Primary Dressing Applied NonAdherent Contact Layer -Other Dressing ABD; DRSG PER KW EXTRUSION FORMER -Other Covering BENI TO SECURE Pain Scale: 0-10 Numeric Is Patient Pain Free? Yes WC - Visit Discharge Discharge Condition Stable Ambulatory Status Ambulatory, Walker Transportation Private Auto Accompanied by Facility Type Home Health Assessment/Plan Assessment/Plan (1) Infected prosthetic knee joint: CODE(S): T84.59XA - Infection and inflammatory reaction due to other internal joint prosthesis, initial encounter; Z96.659 - Presence of unspecified artificial knee joint PLAN: Plan Expected course Drain removed and every other staple removed. Continue XF changes to the skin graft and to wound daily. Continue knee straight at all times with knee immoblizer (4 weeks) Anticipate final staple removal next week F/u in 1 week
--- NOTE | 2024-12-20 09:36 | WC ---
12/19/24 RT THIGH GRAFT SITE
--- NOTE | 2024-12-20 09:38 | WC ---
12/19/24 RT MED LE
--- NOTE | 2024-12-20 09:39 | WC ---
12/19/24 RT THIGH DONOR SITE
[2024-12-26 09:36] VITALS: BP 117/54; PULSE 94; RESP 16; TEMP 35.7; BMI 35.4
--- NOTE | 2024-12-26 10:26 | PCM.WC.PN ---
History of Present Illness Date of Service: 12/26/24 Chief Complaint: Right knee wound after infected arthroplasty History of Wound: HPI from 01 Nov 2024: Joselin Diane is a delightful 74-year-old female with past medical history of a right total knee arthroplasty in February 2024 who presented back to her arthroplasty surgeon Dr. Velásquez with an acute pyogenic right total knee infection earlier this month in October 2024 and was taken back to the operating room on 13 October 2024 for irrigation/debridement with complete synovectomy and a polyethylene exchange of the right knee. Per operative report, the joint was closed with layered 1-0 Vicryl interrupted sutures and the subcuticular layer was closed with 2-0 interrupted Vicryl sutures followed by isabella for the final skin closure. The patient was placed on IV antibiotics by infectious disease, as her cultures grew Streptococcus group G (currently on ceftriaxone per infectious disease consultation). She followed up with Dr. Velásquez in clinic and had some drainage and wound healing issues from the distal portions of the incision and at some point nylon stitches were used to bridge the gap and keep the wound together (isabella are out on exam today). Today she denies any fevers chills or any significant drainage. Of note the patient has atrial fibrillation and is chronically anticoagulated on Eliquis and also takes diltiazem for rate control and blood pressure. She is not a smoker. No history of diabetes. No personal or family history of bleeding or clotting problems or problems with anesthesia. Interval events following initial consultation: Patient was admitted to the hospital on 10 November 2024 for fevers and chills (was determined to be possibly secondary to COVID as she was having shortness of breath as well). The wound was examined and looked about the same as it did in clinic earlier in the week (no signs of mala pus or drainage from the joint). The joint was aspirated as there was concern for infection around the arthroplasty. Aspiration was negative for growth x 5 days and the decision was made by the arthroplasty surgeon to continue current treatment plan with plastics using wound VAC for superficial wound. Patient was discharged on continued cefepime per infectious disease as well as 3 times per week VAC changes and follow-up in the wound care center. Underwent debridement/polyethylene exchange with Dr. Velásquez (orthopedics) followed by immediate reconstruction with a medial gastrocnemius flap and skin graft on 30 November 2024. Subjective Subjective 12 December 2024: Doing well. No drainage. Pain controlled. She's been doing the drain care (still too much to remove drain today, ~30 cc per day). Pain controlled. Compliant with keeping her knee straight. 19 December 2024: Doing well. No fevers or chills. <20 cc per day out from drain. Compliant with knee extension/immobilizer. CURRENT ENCOUNTER, 26 December 2024: Doing well. No fevers, chills, or drainage. Objective Data Objective Data Vital Signs: Vital Signs Temp Pulse Resp BP O2 Del Method 96.3 F L 94 16 117/54 L Room Air 12/26/24 09:36 12/26/24 09:36 12/26/24 09:36 12/26/24 09:36 12/26/24 09:36 Oxygen Delivery Method Room Air Weight: 200 lb Body Mass Index (BMI) 35.4 Charges/Coding Procedures Integumentary 111xxx-113xx: 01957 Global Visit Physical Exam Narrative Graft has healed over muscle flap. Muscle flap in place, C/D/I incision line (healed). Donor sites are healthy/healed. Flap warm and viable. Debridement Note Debridement Note No debridement was completed: No debridement was completed today Post-Debridement Measurements and Additional Note: Post-Debridement Measurements/Treatment - Nurse 1 - General Ulcer Assessment Start: 12/12/24 09:30 Freq: Status: Active Protocol: .LOWEXT Activity Type Activity Date Activity User E-sign Co-sign Detail Recorded Client Recorded Date Recorded By Document 12/12/24 09:31 [facility] [id number] 12/12/24 09:36 BMF Document 12/19/24 09:21 DL [id number] 12/19/24 09:30 DL Document 12/26/24 09:36 KW [id number] 12/26/24 09:44 KW 12/12/24 12/19/24 12/26/24 09:31 09:21 09:36 - Today's Visit Information Type of service Follow-up Visit Follow-up Visit Follow-up Visit (Physician/THREAD GRINDER (Physician/THREAD GRINDER (Physician/THREAD GRINDER ) ) ) Arrival Mode Ambulatory, Ambulatory, Ambulatory,Cane Walker Walker Transfer Assistance None Transfer Board Accompanied by Patient Identification Verified (Name & Yes Yes Yes ) Patient Requires Transmission-Based No No Precautions Height and Weight Body Mass Index (BMI) 35.4 35.4 35.4 BMI Classification Obese Obese Obese Vital Signs Temperature (97.8 F-99.1 F) 97.1 F L 97.4 F L 96.3 F L Temperature Source Temporal Temporal Temporal Pulse Rate (60-100) 104 H 90 94 Pulse Location Monitor Monitor Monitor Respiratory Rate (12-18) 16 20 H 16 Respiratory rate source Observation Observation Observation Oxygen Delivery Method Room Air Room Air Blood Pressure (90/60-120/80) 148/74 H 127/51 H 117/54 L Blood Pressure Mean (mm Hg) 98 76 75 Source Monitor Monitor Monitor Position Sitting Semi-Fowlers Blood Pressure Location Left Arm Right Arm History Since Last Visit- (Skip if this is Patient's initial visit) Have you changed medications since your No No No last visit? Any new allergies or adverse reactions No No No Had a fall/change in ADL's that may No No No increase risk of falls Signs or symptoms of abuse and/or No No No neglect since last visit Have you been in the hospital since your Yes No No last visit? Has dressing in place as prescribed Yes Yes Yes Has compression in place as prescribed Yes Yes Yes Has offloadiing in place as prescribed Yes Yes Yes Experienced any changes in pain level or No No No management Left Footwear Regular Shoe Regular Shoe Right Footwear Regular Shoe Regular Shoe Other Footwear r knee brace/ immobilizer Pain Scale: 0-10 Numeric Is Patient Pain Free? Yes Yes Yes WC - Nurse 1 - General Ulcer Measurement Start: 12/12/24 09:30 Freq: Status: Active Protocol: Activity Type Activity Date Activity User E-sign Co-sign Detail Recorded Client Recorded Date Recorded By Document 12/12/24 09:31 [facility] [id number] 12/12/24 09:36 BMF Document 12/19/24 09:21 DL [id number] 12/19/24 09:30 DL Document 12/26/24 09:36 KW [id number] 12/26/24 09:44 KW 12/12/24 12/19/24 12/26/24 09:31 09:21 09:36 Wound Center Nurse 1 #3- R LAT THIGH DONOR SITE -Combined with other wound No -Current Size (cm) - Length 0.1 0.1 -Current Size (cm) - Width 0.1 0.1 -Current Size (cm) - Depth 0.1 0.1 -Total Square Cm 0.01 0.01 -Date of Last Picture (Recall this 12/12/24 field) -Photo Taken Yes -Exudate Amt None Present -Wound Margin Distinct, Outline Attached -Granulation Amt Large (67-100%) -Granulation Quality Fitzgerald -Necrosis Amt None Present (0 %) -Structure Exposed N/A -Texture (Nancy-wound Skin Appearance) Scarring -Moisture (Nancy-wound Skin Appearance) No Abnormality -Color (Nancy-wound Skin Appearance) No Abnormality -Temperature (Nancy-wound Skin No Abnormality Appearance) (Pt Warm) -Tenderness on Palpation (Nancy-wound No Skin Appearance) -Ulcer Cleansing Soap and Water -Foul Odor after Cleansing No -Wound Comment(s) XEROFORM SUTURED IN PLACE #2- R MED LEG POST OP INCISION SITE -Combined with other wound No -Current Size (cm) - Length 0.1 0.1 0.1 -Current Size (cm) - Width 0.1 0.1 0.1 -Current Size (cm) - Depth 0.1 0.1 0 -Total Square Cm 0.01 0.01 0.01 -Date of Last Picture (Recall this 12/12/24 12/26/24 field) -Photo Taken Yes Yes -Exudate Amt None Present None Present -Wound Margin Distinct, Outline Attached -Granulation Amt Large (67-100%) -Granulation Quality Fitzgerald -Necrosis Amt None Present (0 %) -Structure Exposed N/A -Texture (Nancy-wound Skin Appearance) Scarring Assessed -Moisture (Nancy-wound Skin Appearance) No Abnormality Assessed -Color (Nancy-wound Skin Appearance) No Abnormality Assessed -Temperature (Nancy-wound Skin No Abnormality No Abnormality Appearance) (Pt Warm) (Pt Warm) -Tenderness on Palpation (Nancy-wound No Skin Appearance) -Ulcer Cleansing Soap and Water -Foul Odor after Cleansing No No -Wound Comment(s) ISABELLA incision well ISABELLA INTACT approximated, isabella intact. #1- R KNEE INCISION POST OP -Combined with other wound No -Current Size (cm) - Length 0.1 0.1 0.1 -Current Size (cm) - Width 0.1 0.1 0.1 -Current Size (cm) - Depth 0.1 0.1 0 -Total Square Cm 0.01 0.01 0.01 -Date of Last Picture (Recall this 12/12/24 12/26/24 field) -Photo Taken Yes Yes -Exudate Amt None Present None Present -Wound Margin Distinct, Outline Attached -Granulation Amt Large (67-100%) -Granulation Quality Pale -Necrosis Amt None Present (0 %) -Structure Exposed N/A -Texture (Nancy-wound Skin Appearance) Scarring Assessed -Moisture (Nancy-wound Skin Appearance) No Abnormality, Assessed Not Assessed -Color (Nancy-wound Skin Appearance) No Abnormality Assessed -Temperature (Nancy-wound Skin No Abnormality No Abnormality Appearance) (Pt Warm) (Pt Warm) -Tenderness on Palpation (Nancy-wound No No Skin Appearance) -Ulcer Cleansing Soap and Water -Foul Odor after Cleansing No No -Wound Comment(s) isabella incision well approximated, isabella intact. WC - Nurse 2 - General Ulcer CM Notes Start: 12/12/24 09:30 Freq: Status: Active Protocol: Activity Type Activity Date Activity User E-sign Co-sign Detail Recorded Client Recorded Date Recorded By Document 12/12/24 10:07 DS [id number] 12/12/24 10:13 DS Document 12/19/24 09:55 JF [id number] 12/19/24 09:56 JF Document 12/26/24 10:00 JF [id number] 12/26/24 10:01 12/12/24 12/19/24 12/26/24 10:07 09:55 10:00 Wound Center Nurse 2 #3- R LAT THIGH DONOR SITE -Time 10:12 -Correct Patient Yes No -Correct Side, Site, Position No -Correct Procedure No -Procedure Performed No No -Post Debridement (cm) - Length 3.2 0 -Post Debridement (cm) - Width 4.5 0 -Post Debridement (cm) - Depth 0.1 0 -Total Square (Post) (cm) 14.40 0 -Area of Debridement (cm) - Length 3.2 0 -Area of Debridement (cm) - Width 4.5 0 -Total Square (Area) (cm) 14.40 0 -Tunneling No -Undermining/Tunneling No -Circular Undermining No -Wound/Ulcer Outcome Not Healed Healed- Epithelialized #2- R MED LEG POST OP INCISION SITE -Time 10:13 -Correct Patient Yes No No -Correct Side, Site, Position No No -Correct Procedure No No -Procedure Performed No No No -Post Debridement (cm) - Length 4.3 0.1 0 -Post Debridement (cm) - Width 1.7 0.1 0 -Post Debridement (cm) - Depth 0.1 0.1 0 -Total Square (Post) (cm) 7.31 0.01 0 -Area of Debridement (cm) - Length 4.3 0.1 0 -Area of Debridement (cm) - Width 1.7 0.1 0 -Total Square (Area) (cm) 7.31 0.01 0 -Tunneling No -Undermining/Tunneling No -Circular Undermining No -Wound/Ulcer Outcome Not Healed Not Healed Healed- Surgical Closure #1- R KNEE INCISION POST OP -Time 10:13 -Correct Patient Yes No No -Correct Side, Site, Position No No -Correct Procedure No No -Procedure Performed No No No -Post Debridement (cm) - Length 0.1 0 -Post Debridement (cm) - Width 0.1 0 -Post Debridement (cm) - Depth 0.1 0 -Total Square (Post) (cm) 0.01 0 -Area of Debridement (cm) - Length 0.1 0 -Area of Debridement (cm) - Width 0.1 0 -Total Square (Area) (cm) 0.01 0 -Wound/Ulcer Outcome Not Healed Healed- Surgical Closure Pain Scale: 0-10 Numeric Is Patient Pain Free? Yes Yes Yes WC - Nurse 3 - General Ulcer D/C NN Start: 12/12/24 09:30 Freq: Status: Active Protocol: Activity Type Activity Date Activity User E-sign Co-sign Detail Recorded Client Recorded Date Recorded By Document 12/12/24 10:21 [facility] [id number] 12/12/24 10:23 [facility] Document 12/19/24 10:10 [id number] 12/19/24 10:11 Document 12/26/24 10:03 JF [id number] 12/26/24 10:04 JF 12/12/24 12/19/24 12/26/24 10:21 10:10 10:03 Wound Care Center Nurse 3 #3- R LAT THIGH DONOR SITE -Other Dressing AQUAPHOR AT HOME; DRSG PER KW RADIATOR CORE TESTER -Primary Dressing Covered/Secured with Dry Gauze, Secured with Tape -Wound Comment(s) DRSG PER KW RADIATOR CORE TESTER #2- R MED LEG POST OP INCISION SITE -Other Dressing ABD SECURED W/ VIVEK TO PAD/ PROTECT PER KW RADIATOR CORE TESTER #1- R KNEE INCISION POST OP -Ulcer Cleansing Rinsed/ Rinsed/ Irrigated with Irrigated with Saline Saline -Foul Odor after Cleansing No -Primary Dressing Applied NonAdherent NonAdherent Contact Layer Contact Layer -Other Dressing ABD; DRSG PER KW RADIATOR CORE TESTER -Primary Dressing Covered/Secured with Dry Gauze -Other Covering VIVEK TO SECURE RLE -Compression Wrap Vivek Wrap Pain Scale: 0-10 Numeric Is Patient Pain Free? Yes Yes Yes WC - Visit Discharge Discharge Condition Stable Stable Stable Ambulatory Status Ambulatory, Ambulatory, Ambulatory, Walker Walker Walker Transportation Private Auto Private Auto Private Auto Accompanied by and daughter Medication Reconcilliation completed & Yes Yes provided to patient/care provider Clinical Summary of Care Provided Yes Yes Facility Type Home Health Assessment/Plan Assessment/Plan (1) Infected prosthetic knee joint: CODE(S): T84.59XA - Infection and inflammatory reaction due to other internal joint prosthesis, initial encounter; Z96.659 - Presence of unspecified artificial knee joint PLAN: Plan Expected course. Final isabella removed in clinic today. Continue knee straight at all times with knee immobilizer (4 weeks) until 28 December 2024 (2 days from now), which will be 4 weeks of immobilization. OK to start physical therapy (bending) thereafter. F/u in 2 weeks.
--- NOTE | 2024-12-26 14:43 | WC ---
PHOTO 12/26/24 RIGHT KNEE
--- NOTE | 2024-12-26 14:44 | WC ---
PHOTO 12/26/24 RIGHT [facility]
== END 2025-01-02 23:59 | disposition home or self-care (01) ==
LOC: WC 09:45
PROVIDERS: PCP Family Medicine; Referring Provider Surgery Plastic and Reconstructive Surgery; Visit Provider Surgery Plastic and Reconstructive Surgery
DX: T84.59XA Infection and inflammatory reaction due to other internal joint prosthesis, initial encounter (principal); I48.91 Unspecified atrial fibrillation; Z79.01 Long term (current) use of anticoagulants; Z96.659 Presence of unspecified artificial knee joint; B95.4 Other streptococcus as the cause of diseases classified elsewhere
CPT/HCPCS: 99213; 99214; G0463

== ENCOUNTER → 2025-01-04 | Outpatient (CLI) | payer MEDICARE, OTHER, SELFPAY ==
[2025-01-04 10:59] LABS: Absolute Lymphocyte Count 1.08 X10^3/uL (0.83-4.51); Basophil# 0.02 X10^3/uL; Basophil% 0.3 % (0-1); Eosinophil# 0.31 X10^3/uL; Eosinophils% 4.3 % (0-5); Hematocrit 36.8 % (37-47); Hemoglobin 11.8 g/dL (12.0-15.0); Lymphocyte # 1.08 X10^3/ul (0.83-4.51); Lymphocyte % 15.1 % (19-41); Mean Corp Hgb Conc 32.1 g/dL (32-36); Mean Corpuscular Hgb 28.6 pg (27.0-32.0); Mean Corpuscular Volume 89.1 fL (81-99); Mean Platelet Vol. 9.2 fl (6.2-12.0); Monocyte# 0.73 X10^3/uL; Monocyte% 10.2 % (0-10); NRBC Flagged by Analyzer 0 % (0-5); Neutrophil # 5.01 X10^3/uL (2.7-7.7); Neutrophil % 69.8 % (47-70); Platelet Count 254 K/mm3 (150-450); RBC Distribution Width CV 13.6 % (11.6-14.6); RBC Distribution Width SD 44.4 fl (35.1-43.9); Red Blood Count 4.13 M/mm3 (4.2-5.4); White Blood Count 7.2 K/mm3 (4.4-11.0)
[2025-01-04 13:22] LABS: ALB/GLOB Ratio 1.1 RATIO (0.9-2.4); AST(SGOT) 20 U/L (<=31); Alanine Aminotransfer ALT/SGPT 16 U/L (<=34); Albumin, Serum 3.7 g/dL (3.4-4.8); Alkaline Phosphatase 148 U/L (35-104); Anion Gap 10 (5-15); BUN 13 mg/dL (4-19); BUN/Creat Ratio 22.5 RATIO (10-20); Calcium,Total 9.3 mg/dL (7.6-11.0); Carbon Dioxide 25.8 mmol/L (21.0-32.0); Chloride 104 mmol/L (98-108); Creatinine, Serum 0.57 mg/dL (0.70-1.20); EST Glomerular Filtration Rate 96 (>60); Globulin 3.4 g/dL (2.2-4.2); Glucose 111 mg/dL (70-99); Lipase 34 U/L (13-75); Potassium 4.5 mmol/L (3.3-5.1); Protein, Total 7.1 g/dL (5.9-8.4); Sodium Level 139 mmol/L (133-145); Total Bilirubin 0.23 mg/dL (0.00-1.30)
== END | disposition home or self-care (01) ==
LOC: LAB 10:33
PROVIDERS: PCP Family Medicine; Referring Provider Student in an Organized Health Care Education/Training Program; Visit Provider Student in an Organized Health Care Education/Training Program
DX: R11.2 Nausea with vomiting, unspecified (principal)
CPT/HCPCS: 36415; 80053; 83690; 85025

== ENCOUNTER → 2025-01-10 | Outpatient (CLI) | payer MEDICARE, OTHER, SELFPAY ==
--- NOTE | 2025-01-10 09:40 | US_ITS ---
PROCEDURE: ABDOMEN LIMITED 01/10/2025 REASON FOR EXAM: ELEVATED LIVER ENZYMES AND NASUEA COMPARISON: None. FINDINGS: Liver: Normal in size, diffusely echogenic suggesting fatty infiltration. There are scattered small, simple hepatic cysts. The bile ducts are nondilated. The main portal vein is patent with normal directional flow. Gallbladder: Large calcified stone within the nondilated gallbladder. No sludge, wall thickening or tenderness. Common bile duct: Normal measuring 0.5 cm. Pancreas: Visualized portions are sonographically unremarkable. Other: Visualized portions of the right kidney are unremarkable. No right upper quadrant ascites. US/Abdomen Limited IMPRESSION: 1. Cholelithiasis without evidence of acute cholecystitis. 2. Normal-size liver with findings of diffuse hepatic steatosis. Reading Location: [id number]
== END | disposition home or self-care (01) ==
LOC: US 09:36
PROVIDERS: PCP Family Medicine; Referring Provider Student in an Organized Health Care Education/Training Program; Visit Provider Student in an Organized Health Care Education/Training Program
DX: R74.8 Abnormal levels of other serum enzymes (principal); R11.0 Nausea
CPT/HCPCS: 76705

== ENCOUNTER 2025-03-13 05:08 | Day surgery (SDC) | payer MEDICARE, OTHER, SELFPAY ==
--- NOTE | 2025-03-09 00:08 | PAT.ANESEVAL ---
Pre-Assessment Diagnosis/Proposed Procedure Planned Operative Procedure(s): EGD Anesthesia History Anesthesia History - independent insurance adjuster: Anesthesia History - independent insurance adjuster Hx Hospitalization No 03/08/25 16:39 Any Problems With Anesthesia No 03/08/25 16:39 Cholinesterase deficiency No 03/08/25 16:39 You/Your Family Experience No 03/08/25 16:39 fever (hyperthermia) with Relationship Recent Exposure to Contagious No 11/30/24 06:33 Disease Does patient have nerve No 03/08/25 16:39 stimulator Patient instructed to have device shut off --Does patient have Pacemaker or ICD? When Was Last Pacemaker Check QUESTION #4 FULL TEXT: You/Your Family Experience fever (hyperthermia) with Anesthesia Last Oral Intake Last Oral intake: Last Oral Intake NPO since Meds taken in AM with sips of water? Meds patient instructed to take am of surgery PONV PONV - independent insurance adjuster: PONV - independent insurance adjuster Female Yes 03/08/25 16:39 HX of Motion Sickness Yes 03/08/25 16:39 HX of N/V After Surgery No 03/08/25 16:39 Non-Smoker Yes 03/08/25 16:39 Duration of Surgery greater No 03/08/25 16:39 than 60 minutes Number of Risk Factors 3 03/08/25 16:39 PONV Score Moderate Risk 03/08/25 16:39 Height & Weight Height & Weight: Anesthesia: Height & Weight Height 5 ft 3 in 12/01/24 14:27 Respiratory Assessment Respiratory Assessment - independent insurance adjuster: Respiratory Tract Infection Hx - independent insurance adjuster Hx Respiratory Tract Infection No 03/08/25 16:39 STOP Sleep Apnea STOP Sleep Apnea - independent insurance adjuster: STOP Sleep Apnea - independent insurance adjuster Hx Hypertension Yes: CONTROLLED WITH MED 03/08/25 16:39 Hx Sleep Apnea No 03/08/25 16:39 CPAP No 03/08/25 16:39 BIPAP Do you snore loudly (louder No 03/08/25 16:39 than talking or can be heard Do you often feel tired/ No 03/08/25 16:39 fatigued/ sleepy during daytime? Has anyone observed you stop No 03/08/25 16:39 breathing during sleep? STOP Results Negative 03/08/25 16:39 QUESTION #5 FULL TEXT : Do you snore loudly (louder than talking or can be heard through closed doors)? Tobacco Use History Tobacco Use History - independent insurance adjuster: Tobacco Use History - independent insurance adjuster Tobacco Use Non-smoker 02/26/21 09:17 Smoking Status Former smoker 03/08/25 16:39 Hx Tobacco Use No 03/08/25 16:39 Years Smoking Packs Smoked per Day Smoking Cessation Date was No - quit smoking greater 03/08/25 16:39 within the last 15 years than 15 years ago Hx Smoking Cessation Date Hx Smoking Cessation No 03/08/25 16:39 Counseling Hematologic Medial History Hematologic Hx - independent insurance adjuster: Hematologic Medical Hx - back tufter Hx of Blood Transfusion No 03/08/25 16:39 Hx of Transfusion in last 3 No 03/08/25 16:39 Months Date of Last Transfusion (if within last 3 months) Ever experience any problems No 03/08/25 16:39 with transfusion(s)? Specify any problems Hx of Preganancy in last 3 No 03/08/25 16:39 Months Nurse Filling Out Transfusion DSCHRIBER 03/08/25 16:39 & Questions: Date: 03/08/25 03/08/25 16:39 Time: 16:41 03/08/25 16:39 Patient unable to answer at this time (ie. confused, unrespo /Reproduction History /Reproductive History - independent insurance adjuster: /Reproductive Hx- independent insurance adjuster Hx Now No 03/08/25 16:39 Gestational Age (in weeks): EDC: Hx Hx Para Hx Section SAB No 03/08/25 16:39 PFSH Medical History (Updated 03/08/25 @ 16:46 by Monica Mercer) Depression Chronic upset stomach Loss of hearing Bladder disease Heartburn History of edema History of stress test History of echocardiogram Cardiology follow-up encounter Essential hypertension Other acute postprocedural pain Wears glasses Arthritis Migraine headache Former smoker History of pain when walking Anticoagulant long-term use Paroxysmal atrial fibrillation Anxiety Obesity Paroxysmal supraventricular tachycardia Dizziness Palpitations Uterovaginal prolapse, incomplete Home Medications ?Medication ?Instructions ?Recorded ?Last Taken ?Type acetaminophen 500 mg tablet 1,000 mg PO Q8 PRN pain 07/23/22 10/13/24 01:00 History ascorbic acid (vitamin C) 500 mg 500 mg PO QAM osteoporosis 05/31/24 11/29/24 History tablet (Vitamin C) cholecalciferol (vitamin D3) 25 25 mcg PO QDAY SUPPLEMENT 05/31/24 11/29/24 History mcg (1,000 unit) tablet magnesium oxide 400 mg (241.3 mg 400 mg PO QHS SUPPLEMENT 10/03/24 11/29/24 History magnesium) tablet diltiazem HCl 240 mg 240 mg PO QHS HEART #30 caps 11/15/24 11/29/24 22:30 Rx capsule,extended release 24 hr (Cartia XT) apixaban 5 mg tablet (Eliquis) 5 mg PO BID BLOOD THINNER #180 tabs 01/06/25 Unknown Rx amoxicillin 500 mg capsule 500 mg PO BID 03/08/25 Unknown History aripiprazole 2 mg tablet (Abilify) 2 mg PO QHS 03/08/25 Unknown History paroxetine HCl 25 mg 25 mg PO QHS 03/08/25 Unknown History tablet,extended release 24 hr Allergy/AdvReac Type Severity Reaction Status Date / Time metoprolol AdvReac Mild Nausea Verified 03/08/25 16:32 flecainide AdvReac nausea Verified 03/08/25 16:32 Family History Mother CAD (coronary artery disease) Myocardial infarction, Onset Age: 80 Father Asthma COPD (chronic obstructive pulmonary disease) Brother Colon cancer COPD (chronic obstructive pulmonary disease) Former smoker Grandmother Breast cancer Grandfather Colon cancer Surgical History (Updated 01/28/25 @ 08:[address] Ariel Chisholm MD) Hx of knee surgery History of knee replacement (02/18/24) History of total hip arthroplasty (05/08/21) Hx of total hip arthroplasty History of esophagogastroduodenoscopy (EGD) Hx of colonoscopy History of bladder suspension procedure (2017) H/O total hysterectomy (2018) Social History household members: spouse Smoking Status: Former smoker how long ago did patient quit smokin years ago alcohol intake: never substance use type: does not use caffeine: Yes Type: coffee Number of servings: 2 Audit: Pertinent Findings HISTORY of Pertinent Findings History of Pertinent Findings: 05/2024: This is a 74-year-old female with a history of paroxysmal atrial fibrillation and hypertension who returns for a follow-up visit. She has not had any recurrence of the atrial fibrillation and you remember her stress test demonstrated no evidence of ischemia at a moderate workload and her echocardiogram demonstrated preserved ejection fraction. She tells me that she may be needing knee surgery. She also tells me that she cannot afford the interruptions in her life on warfarin and wants to try back on Eliquis. Pertinent Findings EKG Perinent findings: EKG 11/2024: Sinus tachy (HR 149) - patient had active infection at this time. EKG 09/2024: Sinus tachy with 1st degree AV block Stress test pertinent findings: tress test from 12/22/2023: Conclusion: Normal pharmacologic myocardial perfusion stress test. Mildly reduced ejection fraction. Echo (EF%) pertinent findings: Echocardiogram from 02/01/2024: Interpretation Summary Normal LV size. Left ventricular systolic function is normal. The left ventricular ejection fraction is 60 %. Structurally normal valves. Recommendation Anesthesia Recommendation Anesthesia recommendation: OPTIMIZED for anesthesia
[2025-03-13] VITALS (7 sets, daily range): BP systolic 118–145; BP diastolic 53–60; PULSE 61–69; RESP 12–18; TEMP 36.3–36.7; O2SAT 92–96; BMI 32.0
--- OUTSIDE RECORDS SUMMARY | 2025-03-13 05:11 | XMS RPT_ITS | CCD ---
Author Organization [facility] Care Team Providers Care Commission Clerk Name Role Phone Dr. Damian Craig Primary Care Provider Dr. Damian Craig Referring Provider [phone] Dr. Xander Fitzgerald Attending Provider Dr. Xander Fitzgerald Referring Provider Dr. Xander Fitzgerald Other Provider Rafa WAGNER, Dr. Salgado Primary Care Provider Dr. Robbie Harrell DO Emergency Provider Goyo WAGNER, Dr. Shadia Winkler Admit Provider Goyo WAGNER, Dr. Shadia Winkler Other Provider [phone] Didier WAGNER, Dr. Borrego Other Provider Dr. Ariel Chisholm MD Other Provider Layton WAGNER, Dr. George Other Provider Sintia WAGNER, Dr. Raymond Ball Attending Provider Dr. Aaron Tony MD Other Provider Unavailable Rafa WAGNER, Dr. Salgado Referring Provider Nir WAGNER, Dr. Bennett Other Provider Glory WAGNER, Dr. Felder Other Provider Dr. Shahzad Watts MD Other Provider Dr. Jessee Arreaga DO Other Provider Ivelisse WAGNER, Dr. Aaron Blanco Other Provider Elena WAGNER, Dr. Hilton Other Provider Cherrie WAGNER, Dr. Sher Other Provider [phone] Selena WAGNER, Dr. Ndiaye Other Provider [phone] Kendy WAGNER, Dr. Roth Other Provider Bladimir WAGNER, Dr. Banks Other Provider Jean Pierre WAGNER, Dr. Piedra Other Provider Khoa WAGNER, Dr. Flood Other Provider Briseida WAGNER, Dr. Peralta Other Provider Unavailabl pierre Zaidi MD, Dr. Gomez Other Provider [phone] Zarina WAGNER, Dr. Tony Other Provider Tj WAGNER, Dr. Connolly Other Provider Juliette WAGNER, Dr. Jay Other Provider Nikolai BLAKELY, Dr. Escobar Other Provider Anita WAGNER, Dr. Adkins Other Provider Ottoniel WAGNER, Dr. Galindo Other Provider Eron BLAKELY, Dr. Murillo Other Provider Bautista WAGNER, Dr. Cruz Other Provider Natanael WAGNER, Dr. Crum Other Provider [phone] Ariel Chisholm MD Attending Provider Dr. Aaron Tony MD Attending Provider Unavaila yadi Khoury MD, Dr. Salgado Attending Provider Dr. Shadia Nance MD Referring Provider Sintia WAGNER, Dr. Raymond Ball Other Provider Kathrine WAGNER, Dr. George Referring Provider Dr. Ariel Traylor MD Attending Provider Dr. Ariel Traylor MD Referring Provider Didier WAGNER, Dr. Elmo Admit Provider Didier WAGNER, Dr. Borrego Referring Provider [phone] Elmo Velásquez MD Attending Provider [phone] Maria Luz Portillo Attending Provider [phone] Maria Luz Portillo Referring Provider [phone] McMorrow ASSEMBLER BICYCLE, Michi Referring Unavailable [facility] Primary Care Unavailable Damian Khoury Attending Unavailable Shadia Nance Admitting Unavailable Elmo Velásquez Consulting Unavailable SisAriel son Attending Unavailable [facility] Primary Care Unavailable Sisadelaida, Ariel Consulting Unavailable Ariel Traylor Consulting Unavailable Shadia Nance Consulting Unavailable Aaron Tony Consulting Unavailable Didier, Elmo Referring Unavailable Didier, Elmo Admitting Unavailable Siska, Ariel Consulting Unavailable Kathrine, Ariel Attending Unavailable [facility] Primary Care Unavailable Raymond Patricio Consulting Unavailable Didier Elmo Consulting Unavailable Ariel Traylor Attending Unavailable [facility] Primary Care Unavailable Didier, Elmo Admitting Unavailable Didier, Elmo Referring Unavailable Laurie Zuniga Consulting Unavailable Laurie Zuniga Attending Unavailable [facility] Primary Care Unavailable Layton, Ariel Consulting Unavailable Didier, Elmo Consulting Unavailable Siska, Ariel Referring Unavailable Siska, Ariel Consulting Unavailable Sisadelaida, Ariel Attending Unavailable [facility] Primary Care Unavailable Didier, Elmo Referring Unavailable Didier, Elmo Admitting Unavailable Siska, Ariel Consulting Unavailable Sisadelaida, Ariel Attending Unavailable [facility] Primary Care Unavailable Didier, Elmo Consulting Unavailable Siska, Ariel Referring Unavailable Siska, Ariel Attending Unavailable Siska, Ariel Consulting Unavailable [facility] Primary Care Unavailable Shadia Nance Attending Unavailable Donald Loyola Consulting Unavailable Bradford Holder Consulting Unavailable Shahzad Watts Consulting Unavailable Jessee Arreaga Consulting Unavailable Aaron Oviedo Consulting Unavailable Yobani Parker Consulting Unavailable Christos Grier Consulting Unavailable Zelda Walters Consulting UnavailGonzalez Gray Consulting Unavailable Darren Garrison Consulting Unavailable Tadeo Greenfield Consulting Unavailable Aleena Couch Consulting Unavailable Fabian Goins Consulting Unavailable Patricia Zaidi Consulting Unavailable Chavo Srinivasan Consulting Unavailable Mohsen Spencer Consulting Unavailable Pierre Segovia Consulting Unavailable Dhesi, Shawn Consulting Unavailable Lucille Howard Consulting Unavailable Ottoniel, Mateo Consulting Unavailable Chidi Littlejohn Consulting Unavailable Anthony Baum Consulting Unavailable Radames Santoyo Consulting Unavailable Aaron Tony Attending Unavailable Raymond Patricio Consulting Unavailable Raymond Patricio Attending Unavailable Shadia Nance Referring Unavailable Damian Khoury Attending Unavailable Craig, Damian Primary Care Unavailable Siska, Ariel Referring Unavailable Siska, Ariel Consulting Unavailable Siska, Ariel Attending Unavailable Craig, Damina Primary Care Unavailable Layton, Ariel Referring Unavailable Layton, Ariel Attending Unavailable Craig, Damian Primary Care Unavailable Siska, Ariel Consulting Unavailable Siska, Ariel Referring Unavailable Siska, Ariel Attending Unavailable Craig, Damian Primary Care Unavailable Siska, Ariel Referring Unavailable Siska, Ariel Attending Unavailable Craig, Damian Primary Care Unavailable Layton, Ariel Consulting Unavailable Elmo Velásquez Attending Unavailable Elmo Velásquez Referring Unavailable Elmo Velásquez Admitting Unavailable Laurie Zuniga Consulting Unavailable Craig, Damian Primary Care Unavailable Layton, Ariel Consulting Unavailable Siska, Ariel Referring Unavailable Siska, Ariel Attending Unavailable Craig, Damian Primary Care Unavailable Craig, Damian Primary Care Unavailable Layton, Ariel Referring Unavailable Layton, Ariel Attending Unavailable Siska, Ariel Attending Unavailable Siska, Ariel Referring Unavailable Craig, Damian Primary Care Unavailable Craig, Damian Primary Care Unavailable [place] Attending Unavailable Craig, Damian Referring Unavailable Elmo Velásquez Referring Unavailable Elmo Velásquez Admitting Unavailable Hari Palomares Attending Unavailable Craig, Damian Primary Care Unavailable Hari Palomares Consulting Unavailable Paintsil, [place] Consulting Unavailable Raymond Patricio Consulting Unavailable DidierElmo pierre Consulting Unavailable Craig, Damian Primary Care Unavailable Craig, Damian Referring Unavailable Craig, Damian Attending Unavailable Craig, Damian Referring Unavailable Craig, Damian Primary Care Unavailable Craig, Damian Attending Unavailable Maria Luz Mack Referring Unavailable Craig, Damian Primary Care Unavailable Maria Luz Mack Attending Unavailable Maria Luz Mack Referring Unavailable Maria Luz Mack Attending Unavailable Craig, Damian Primary Care Unavailable Siska, Ariel Attending Unavailable Siska, Ariel Referring Unavailable Craig, Damian Primary Care Unavailable Craig, Damian Primary Care Unavailable Thierry Sy Attending Unavailable Craig, Damian Primary Care Unavailable Nasir Jean Baptiste Attending Unavailable Elmo Velásquez Attending Unavailable Didier, Elmo Referring Unavailable Craig, Damian Primary Care Unavailable McMorrow ASSEMBLER BIC[employer]CLE, Michi Attending Unavailable Craig, Damian Referring Unavailable Craig, Damian Primary Care Unavailable McMorrow ASSEMBLER BICYCLE, Michi Referring Unavailable Craig, Damian Primary Care Unavailable McMorrow ASSEMBLER BICYCLE, Michi Attending Unavailable Craig, Damian Primary Care Unavailable Layton, Ariel Referring Unavailable Ariel Traylor Attending Unavailable Elmo Velásquez Referring Unavailable Elmo Velásquez Attending Unavailable Elmo Velásquez Admitting Unavailable Siska, Ariel Consulting Unavailable Craig, Damian Primary Care Unavailable Raymond Patricio Consulting Unavailable Layton, Ariel Consulting Unavailable Shadia Nance Admitting Unavailable Elmo Velásquez Consulting Unavailable Raymond Patricio Attending Unavailable Craig, Damian Primary Care Unavailable Siska, Ariel Consulting Unavailable Layton, Ariel Consulting Unavailable Shadia Nance Consulting Unavailable Aaron Tony Consulting Unavailable Craig, Damian Primary Care Unavailable Craig, Damian Attending Unavailable Siska, Ariel Attending Unavailable Siska, Ariel Referring Unavailable Siska, Ariel Consulting Unavailable Craig, Damian Primary Care Unavailable Raymond Patricio Attending Unavailable Siska, Ariel Referring Unavailable Siska, Ariel Attending Unavailable Siska, Ariel Consulting Unavailable Craig, Damian Primary Care Unavailable Siska, Ariel Consulting Unavailable Siska, Ariel Attending Unavailable Siska, Ariel Referring Unavailable Craig, Damian Primary Care Unavailable Siska, Ariel Attending Unavailable Craig, Damian Referring Unavailable Craig, Damian Primary Care Unavailable Siska, Ariel Attending Unavailable Craig, Damian Referring Unavailable Craig, Damian Primary Care Unavailable Craig, Damian Primary Care Unavailable Craig, Damian Referring Unavailable Yoandy Carson NP Attending Unavailable Maria Luz Mack Attending Unavailable Craig, Damian Primary Care Unavailable Craig, Damian Referring Unavailable Craig, Damian Referring Unavailable Allergies Allergy Classification Reported Allergen(s) Allergy Type Date of Onset Reaction(s) Facility (10 sources) Flecainide Drug Allergy 07-23-2022 [facility] (10 sources) Metoprolol Drug Allergy 07-24-2022 [facility] (1 source) Flecainide Drug Allergy 03-10-2025 [facility] Repository (1 source) Metoprolol Drug Allergy 03-10-2025 [facility] Repository Medications Current Medications Medication Drug Class(es) Dates Sig (Normalized) Sig (Original) amoxicillin 500 mg oral capsule (1 source) Penicillin-class Antibacterial Start: 03-08-2025 apixaban 5 mg oral tablet (20 sources) Factor Xa Inhibitor Start: 12-01-2023 End: 01-06-2025 Start: 11-21-2020 End: 01-03-2021 ARIPiprazole 2 mg oral table t (1 source) Atypical Antipsychotic Start: 03-08-2025 ascorbic acid 500 mg oral ta blet (1 source) Vitamin C Start: 05-31-2024 cholecalciferol 0.025 mg ora l tablet (20 sources) Vitamin D Start: 05-31-2024 Start: 04-24-2021 End: 07-23-2021 Start: 11-19-2020 End: 12-11-2020 24 hr dilTIAZem hydrochlorid e 240 mg extended release oral capsule (13 sources) Calcium Channel Ophelia Start: 11-15-2024 Start: 11-09-2024 End: 11-15-2024 Start: 07-24-2022 End: 11-09-2024 magnesium oxide 400 mg oral tablet (20 sources) Start: 10-03-2024 Start: 11-19-2020 End: 07-23-2021 Start: 11-19-2020 End: 01-03-2021 take 400 mg by mouth twice daily Magnesium Oxide Discontinued 400 MG PO TWICE A DAY November 19, 2020 1:00am January 03, 2021 10:37am 24 hr PARoxetine hydrochlori de 25 mg extended release oral tablet (20 sources) Serotonin Reuptake Inhibitor Start: 03-08-2025 Start: 07-23-2021 End: 05-31-2024 Start: 12-11-2020 End: 07-23-2021 Start: 01-22-2018 End: 12-11-2020 Completed/Discontinued Medications Medication Drug Class(es) Dates Sig (Normalized) Sig (Original) acetaminophen 500 mg oral tablet (20 sources) Start: 03-14-2021 End: 07-23-2022 Start: 03-14-2021 End: 05-09-2021 take 1000 mg by mouth every eight hours Acetaminophen Discontinued 1000 MG PO EVERY 8 HOURS 0 March 14, 2021 12:00am May 09, 2021 10:34am busPIRone hydrochloride 5 mg oral tablet (1 source) Start: 10-03-2024 End: 11-13-2024 calcium carbonate 500 mg concepción wable tablet (10 sources) Start: 11-19-2020 End: 11-19-2020 calcium carbonate 1500 mg / cholecalciferol 200 unt oral capsule (20 sources) Vitamin D Start: 02-26-2021 End: 07-23-2021 Start: 12-11-2020 End: 01-03-2021 calcium citrate 950 mg oral tablet (10 sources) Start: 10-03-2024 End: 11-09-2024 Start: 11-19-2020 End: 12-11-2020 take 333 mg by mouth once daily calcium citrate ` Discontinued 333 MG PO DAILY November 19, 2020 1:00am December 11, 2020 9:33am cefepime 2000 mg injection (1 source) Cephalosporin Antibacterial Start: 11-15-2024 End: 12-05-2024 cefTRIAXone 2000 mg injectio n (1 source) Cephalosporin Antibacterial Start: 10-14-2024 End: 11-15-2024 cephalexin 500 mg oral capsu le (1 source) Cephalosporin Antibacterial Start: 12-05-2024 End: 03-08-2025 docusate sodium 50 mg / zane osides, half-way 8.6 mg oral tablet (20 sources) Start: 10-17-2024 End: 10-31-2024 Start: 03-14-2021 End: 07-23-2021 Start: 03-14-2021 End: 07-23-2021 Sennosides-Docusate Sodium ( Stool Softener-Stimulant Laxat) 8.6-50 mg Tablet Discontinued 2 TABLET PO TWICE A DAY May 09, 2021 12:00am July 23, 2021 1:18pm Take until first bowel movement, then as needed doxycycline hyclate 100 mg o ral capsule (1 source) Tetracycline-class Drug Start: 12-05-2024 End: 03-08-2025 famotidine 20 mg oral tablet (11 sources) Histamine-2 Receptor Antagonist Start: 10-12-2024 End: 11-09-2024 Start: 03-14-2021 End: 05-09-2021 flecainide acetate 100 mg or al tablet (10 sources) Antiarrhythmic Start: 11-21-2020 End: 01-03-2021 hydrOXYzine hydrochloride 25 mg oral tablet (1 source) Antihistamine Start: 11-09-2024 End: 03-08-2025 krill oil 500 mg oral capsul e (20 sources) Start: 11-19-2020 End: 01-03-2021 Start: 11-19-2020 End: 12-11-2020 Krill Oil Discontinued MG PO November 19, 2020 1:00am December 11, 2020 9:35am metoprolol tartrate 25 mg or al tablet (20 sources) beta-Adrenergic Ophelia Start: 11-19-2020 End: 07-23-2022 Start: 11-19-2020 End: 07-23-2021 take 25 mg by mouth twice daily Metoprolol Tartrate Discontinued 25 MG PO TWICE A DAY November 19, 2020 1:00am July 23, 2021 1:19pm Multivitamin preparation (9 sources) Start: 12-11-2020 End: 01-03-2021 take 1 tablet by mouth once daily in the morning Multivitamin Discontinued 1 TABLET PO EVERY MORNING December 11, 2020 1:00am January 03, 2021 10:36am [place]-3 Fatty Acids (9 sources) Start: 02-26-2021 End: 07-23-2021 take 1250 mg by mouth once daily [place]-3 Fatty Acids Discontinued 1250 MG PO DAILY February 26, 2021 12:00am July 23, 2021 1:17pm ondansetron 4 mg disintegrating oral tablet (3 sources) Serotonin-3 Receptor Antagonist Start: 12-05-2024 End: 03-08-2025 Start: 11-09-2024 End: 11-09-2024 Start: 10-03-2024 End: 10-12-2024 oxyCODONE hydrochloride 5 mg oral tablet (20 sources) Opioid Agonist Start: 10-17-2024 End: 11-09-2024 Start: 03-14-2021 End: 07-23-2021 Start: 03-14-2021 End: 07-23-2021 take 5-10 mg by mouth every four hours as needed Oxycodone Discontinued 5 - 10 MG PO EVERY 4 HOURS NEEDED 42 4 May 09, 2021 July 23, 2021 1:18pm pantoprazole 40 mg delayed release oral tablet (1 source) Proton Pump Inhibitor Start: 01-04-2025 End: 03-08-2025 QUEtiapine 25 mg oral tablet (1 source) Atypical Antipsychotic Start: 11-09-2024 End: 03-08-2025 traMADol hydrochloride 50 mg oral tablet (1 source) Opioid Agonist Start: 10-12-2024 End: 10-31-2024 24 hr venlafaxine 75 mg extended release oral capsule (1 source) Serotonin and Norepinephrine Reuptake Inhibitor Start: 05-31-2024 End: 10-03-2024 Vitamin B Complex (18 sources) Start: 02-26-2021 End: 07-23-2021 take 1 tablet by mouth once daily Vitamin B Complex Discontinued 1 TABLET PO DAILY February 26, 2021 12:00am July 23, 2021 1:18pm Start: 11-19-2020 End: 01-03-2021 take 1 tablet by mouth once daily Vitamin B Complex Discontinued 1 TABLET PO DAILY November 19, 2020 1:00am January 03, 2021 10:37am warfarin sodium 3 mg oral ta blet (20 sources) Vitamin K Antagonist Start: 12-12-2020 End: 12-01-2023 Start: 12-12-2020 End: 04-24-2021 Warfarin Discontinued 3 MG P O .COMPLEX 90 January 10, 2021 3:05pm January 24, 2021 12:08pm 3 mg PO Take 9 mg , 6 mg all other days, or as directed for dose changes.; (5 sources) Start: 02-26-2021 End: 07-23-2021 Start: 02-26-2021 End: 07-23-2021 Start: 12-11-2020 End: 01-03-2021 Start: 11-19-2020 End: 01-03-2021 Start: 11-19-2020 End: 12-11-2020 Problems Active Problems Problem Classification Problem Date Documented Date Episodic/Chronic Cardiac dysrhythmias (18 sources) Paroxysmal atrial fibrillation; Translations: [Paroxysmal atrial fibrillation] Onset: 05-31-2024 12-11-2020 Chronic Cardiac dysrhythmias (10 sources) Palpitations; Translations: [Palpitations] 07-19-2021 Episodic Coagulation and hemorrhagic disorders (1 source) Thrombocytopenic disorder; Translations: [Thrombocytopenia, unspecified] 10-13-2024 Chronic Coagulation and hemorrhagic disorders (1 source) Petechiae of skin; Translations: [Spontaneous ecchymoses] 10-13-2024 Episodic Complication of device; implant or graft (12 sources) Prosthetic joint infection; Translations: [Infection and inflammatory reaction due to other internal joint prosthesis, initial encounter] Onset: 12-03-2024 11-10-2024 Episodic Conditions associated with dizziness or vertigo (10 sources) Dizziness; Translations: [Dizziness and giddiness] 07-19-2021 Episodic Essential hypertension (18 sources) Essential hypertension; Translations: [Essential (primary) hypertension] Onset: 10-21-2024 07-19-2021 Chronic Gastritis and duodenitis (1 source) Acute gastritis; Translations: [Acute gastritis without bleeding] 10-11-2024 Episodic Infective arthritis and osteomyelitis (except that caused by tuberculosis or sexually transmitted disease) (3 sources) Infective arthritis; Translations: [Pyogenic arthritis, unspecified] Onset: 12-13-2024 11-10-2024 Episodic Nausea and vomiting (4 sources) Nausea and vomiting; Translations: [Nausea with vomiting, unspecified] Onset: 01-05-2025 01-04-2025 Episodic Open wounds of extremities (1 source) Unspecified open wound, right knee, initial encounter; Translations: [Unspecified open wound, right knee, initial encounter] Onset: 12-29-2024 Episodic Other aftercare (10 sources) Long-term current use of anticoagulant; Translations: [senior living (current) use of anticoagulants] 01-03-2021 Episodic Other connective tissue disease (20 sources) History of total hip arthroplasty; Translations: [Presence of left artificial hip joint] 07-19-2021 Chronic Other connective tissue disease (1 source) Presence of unspecified artificial knee joint; Translations: [Presence of unspecified artificial knee joint] Onset: 02-25-2025 Chronic Other liver diseases (2 sources) Elevated liver enzymes level; Translations: [Abnormal levels of other serum enzymes] 01-04-2025 Episodic Other liver diseases (1 source) Abnormal levels of other serum enzymes; Translations: [Abnormal levels of other serum enzymes] Onset: 01-12-2025 Episodic Other nervous system disorders (10 sources) Acute postoperative pain; Translations: [Other acute postprocedural pain] 07-19-2021 Episodic Other nervous system disorders (1 source) Postoperative pain ; Translations: [Other acute postprocedural pain] 10-17-2024 Episodic Septicemia (except in labor) (1 source) Sepsis due to Pseudomonas; Translations: [Sepsis due to Pseudomonas] Onset: 12-13-2024 Episodic Viral infection (1 source) Disease caused by 2019-nCoV; Translations: [COVID-19] 10-05-2024 Episodic Viral infection (1 source) COVID-19; Translations: [COVID-19] Onset: 10-17-2024 Past or Other Problems Problem Classification Problem Date Documented Date Episodic/Chronic Abdominal pain (1 source) Unspecified abdominal pain; Translations: [Unspecified abdominal pain] Onset: 10-31-2024 Episodic Malaise and fatigue (1 source) Other fatigue; Translations: [Other fatigue] Onset: 04-19-2024 Episodic Other connective tissue disease (1 source) Pain in right leg; Translations: [Pain in right leg] Onset: 11-03-2024 Episodic Other nervous system disorders (1 source) Other acute postprocedural pain; Translations: [Other acute postprocedural pain] Onset: 10-17-2024 Episodic Other non-traumatic joint disorders (1 source) Pain in right knee; Translations: [Pain in right knee] Onset: 10-21-2024 Episodic Other screening for suspected conditions (not mental disorders or infectious disease) (1 source) Encounter for screening mammogram for malignant neoplasm of breast; Translations: [Encounter for screening mammogram for malignant neoplasm of breast] Onset: 08-12-2024 Episodic Results Test Name Value Interpretation Reference Range Facility Plastic Surgery Visit Report on 03-10-2025 Plastic Surgery Visit Report Normal [facility] MR/PAT.ANEon 03-09-2025 MR/PAT.ANE Normal [facility] Plastic Surgery Visit Report on 01-27-2025 Plastic Surgery Visit Report Normal [facility] Acid Fast Bacillus Cultureon 01-14-2025 tAF Normal [facility] Comment on above: Performed By: #### M 300.3000, M300.2000 ####[facility] [address] [place], [place], [id number] [facility] Comment on above: Performed By: #### M 300.3000, M300.2000 ####[facility] [address] [place], [address] [facility] Comment on above: Performed By: #### M 300.2000, M300.3000 ####[facility] [address] [place], [address] Acid Fast Bacillus Smear/Flu oron 01-14-2025 tafb [facility] Comment on above: Performed By: #### M 300.3000, M300.2000 ####[facility] [address] [place], [address] [facility] Comment on above: Performed By: #### M 300.3000, M300.2000 ####[facility] [address] [place], [address] [facility] Comment on above: Performed By: #### M 300.2000, M300.3000 ####[facility] [address] [place], [address] Culture, Fungus 8482on 01-14 [facility] Comment on above: Performed By: #### M 600.2000, M100.2000, M100.4001, M600.2200, M100.3000 ####[facility] [address] [place], [address] [facility] Comment on above: Performed By: #### M 100.4001, M100.2000, M600.2000, M600.2200, M100.3000 ####[facility] [address] [place], [address] [facility] Comment on above: Performed By: #### M 600.2200, M100.3000, M100.2000, M100.4001, M600.2000 ####[facility] [address] [place], [address] Fungus Stain 8136on 01-15-20 [facility] Comment on above: Performed By: #### M 600.2000, M100.2000, M100.4001, M600.2200, M100.3000 ####[facility] [address] [place], [address] [facility] Comment on above: Performed By: #### M 100.4001, M100.2000, M600.2000, M600.2200, M100.3000 ####[facility] [address] [place], [address] [facility] Comment on above: Performed By: #### M 600.2200, M100.3000, M100.2000, M100.4001, M600.2000 ####[facility] [address] [place], [address] Abdomen Limitedon 01-10-2025 Abdomen Limited Normal [facility] Absolute lymphocyte countOrd ered By: Maria Luz Mack on 01-04-2025 Lymphocytes Auto (Unsp spec) [#/Vol] 1.08 10*3/uL 0.83-4.51 [facility] Anion gap in Serum or Plasma Ordered By: Maria Luz Mack on 01-04-2025 Anion gap [Moles/Vol] 10 mmol/L 5-15 [facility] Automated lymphocyte count a s percentage of total leukocytesOrdered By: Maria Luz Mack on 01-04-2025 Lymphocytes/100 WBC Auto (Unsp spec) 15.1 % Low 19-41 [facility] BUN/creatinine ratioOrdered By: Maria Luz Mack on 01-04-2025 Urea nitrogen/Creatinine [Mass ratio] 22.5 mg/mg High 10-20 [facility] Basophil percentageOrdered B y: Maria Luz Mack on 01-04-2025 Basophils/100 WBC (Bld) 0.3 % 0-1 [facility] Bilirubin, totalOrdered By: Maria Luz Mack on 01-04-2025 Bilirubin [Mass/Vol] 0.23 mg/dL 0.00-1.30 [facility] CBC W/Diff, Automatedon Absolute Lymph 1.08 X10 3/uL Normal 0.83-4.51 [facility] Comment on above: Performed By: #### L 500.4050, L501.2450, L100.0100 ####[facility] [address] [place], [address] Absolute Neut 5.0 X10 3/uL Normal 2.0-7.7 [facility] Comment on above: Performed By: #### L 500.4050, L501.2450, L100.0100 ####[facility] [address] [place], [address] Basophils/100 WBC (Bld) 0.3 % Normal 0-1 [facility] Comment on above: Performed By: #### L 500.4050, L501.2450, L100.0100 ####[facility] [address] [place], [address] Eosinophils/100 WBC (Bld) 4.3 % Normal 0-5 [facility] Comment on above: Performed By: #### L 500.4050, L501.2450, L100.0100 ####[facility] [address] [place], [address] Erythrocyte distribution width (RBC) [Ratio] 13.6 % Normal 11.6-14.6 [facility] Comment on above: Performed By: #### L 500.4050, L501.2450, L100.0100 ####[facility] [address] [place], [address] Hematocrit (Bld) [Volume fraction] 36.8 % Low 37-47 [facility] Comment on above: Performed By: #### L 500.4050, L501.2450, L100.0100 ####[facility] [address] [place], [address] Hemoglobin (Bld) [Mass/Vol] 11.8 g/dL Low 12.0-15.0 [facility] Comment on above: Performed By: #### L 500.4050, L501.2450, L100.0100 ####[facility] [address] [place], [address] IG% 0.300 Normal 0.0-0.9 [facility] Comment on above: Result Comment: IG% - Immature Granulocytes (promyelocytes, myelocytes andmetamyelocytes) > 1% indicates that a LEFT SHIFT is Present. Performed By: #### L 500.4050, L501.2450, L100.0100 ####[facility] [address] [place], [address] Lymphocytes/100 WBC (Bld) 15.1 % Low 19-41 [facility] Comment on above: Performed By: #### L 500.4050, L501.2450, L100.0100 ####[facility] [address] [place], [address] MCH (RBC) [Entitic mass] 28.6 pg Normal 27.0-32.0 [facility] Comment on above: Performed By: #### L 500.4050, L501.2450, L100.0100 ####[facility] [address] [place], [address] MCHC (RBC) [Mass/Vol] 32.1 g/dL Normal 32-36 [facility] Comment on above: Performed By: #### L 500.4050, L501.2450, L100.0100 ####[facility] [address] [place], [address] MCV (RBC) [Entitic vol] 89.1 fL Normal 81-99 [facility] Comment on above: Performed By: #### L 500.4050, L501.2450, L100.0100 ####[facility] [address] [place], [address] Monocytes/100 WBC (Bld) 10.2 % High 0-10 [facility] Comment on above: Performed By: #### L 500.4050, L501.2450, L100.0100 ####[facility] [address] [place], [address] Neutrophils/100 WBC (Bld) 69.8 % Normal 47-70 [facility] Comment on above: Performed By: #### L 500.4050, L501.2450, L100.0100 ####[facility] [address] [place], [address] Nucleated RBC (Bld) [#/Vol] 0 10*3/uL Normal 0-5 [facility] Comment on above: Performed By: #### L 500.4050, L501.2450, L100.0100 ####[facility] [address] [place], [address] Platelet mean volume (Bld) [Entitic vol] 9.2 fL Normal 6.2-12.0 [facility] Comment on above: Performed By: #### L 500.4050, L501.2450, L100.0100 ####[facility] [address] [place], [address] Platelets (Bld) [#/Vol] 254 10*3/uL Normal 150-450 [facility] Comment on above: Performed By: #### L 500.4050, L501.2450, L100.0100 ####[facility] [address] [place], [address] RBC (Bld) [#/Vol] 4.13 10*6/uL Low 4.2-5.4 [facility] Comment on above: Performed By: #### L 500.4050, L501.2450, L100.0100 ####[facility] [address] [place], [address] RDW SD 44.4 fl High 35.1-43.9 [facility] Comment on above: Performed By: #### L 500.4050, L501.2450, L100.0100 ####[facility] [address] [place], [address] WBC (Bld) [#/Vol] 7.2 10*3/uL Normal 4.4-11.0 [facility] Comment on above: Performed By: #### L 500.4050, L501.2450, L100.0100 ####[facility] [address] [place], [address] Carbon dioxide, total [Moles /volume] in Central venous bloodOrdered By: Maria Luz Mack on 01-04-2025 CO2 [Moles/Vol] 25.8 mmol/L 21.0-32.0 [facility] Chloride assayOrdered By: Tessie Mack on 01-04-2025 Chloride [Moles/Vol] 104 mmol/L 98-108 [facility] Comprehensive Metabolic Prof ilon 01-04-2025 Albumin [Mass/Vol] 3.7 g/dL Normal 3.4-4.8 [facility] Comment on above: Performed By: #### L 500.4050, L501.2450, L100.0100 ####[facility] [address] [place], [address] Albumin/Globulin [Mass ratio] 1.1 {ratio} Normal 0.9-2.4 [facility] Comment on above: Performed By: #### L 500.4050, L501.2450, L100.0100 ####[facility] [address] [place], [address] ALK PHOS 148 U/L High 35-104 [facility] Comment on above: Performed By: #### L 500.4050, L501.2450, L100.0100 ####[facility] [address] [place], [address] ALT [Catalytic activity/Vol] 16 U/L Normal <=34 [facility] Comment on above: Performed By: #### L 500.4050, L501.2450, L100.0100 ####[facility] [address] [place], [address] AST [Catalytic activity/Vol] 20 U/L Normal <=31 [facility] Comment on above: Performed By: #### L 500.4050, L501.2450, L100.0100 ####[facility] [address] [place], [address] Bilirubin [Mass/Vol] 0.23 mg/dL Normal 0.00-1.30 [facility] Comment on above: Performed By: #### L 500.4050, L501.2450, L100.0100 ####[facility] [address] [place], [address] BUN/CRE 22.5 RATIO High 10-20 [facility] Comment on above: Performed By: #### L 500.4050, L501.2450, L100.0100 ####[facility] [address] [place], [address] Calcium [Mass/Vol] 9.3 mg/dL Normal 7.6-11.0 [facility] Comment on above: Performed By: #### L 500.4050, L501.2450, L100.0100 ####[facility] [address] [place], [address] Chloride [Moles/Vol] 104 mmol/L Normal 98-108 [facility] Comment on above: Performed By: #### L 500.4050, L501.2450, L100.0100 ####[facility] [address] [place], [address] CO2 [Moles/Vol] 25.8 mmol/L Normal 21.0-32.0 [facility] Comment on above: Performed By: #### L 500.4050, L501.2450, L100.0100 ####[facility] [address] [place], [address] Creatinine [Mass/Vol] 0.57 mg/dL Low 0.70-1.20 [facility] Comment on above: Performed By: #### L 500.4050, L501.2450, L100.0100 ####[facility] [address] [place], [address] GAP 10 Normal 5-15 [facility] Comment on above: Performed By: #### L 500.4050, L501.2450, L100.0100 ####[facility] [address] [place], [address] GFR/1.73 sq M.predicted among non-blacks MDRD (S/P/Bld) [Vol rate/Area] 96 mL/min/{1.73_m2} Normal >60 [facility] Comment on above: Result Comment: mL/m in/1.73m2 CKD-EPI Creatinine Equation (2020) Performed By: #### L 500.4050, L501.2450, L100.0100 ####[facility] [address] [place], [address] Globulin (S) [Mass/Vol] 3.4 g/dL Normal 2.2-4.2 [facility] Comment on above: Performed By: #### L 500.4050, L501.2450, L100.0100 ####[facility] [address] [place], [address] Glucose [Mass/Vol] 111 mg/dL High 70-99 [facility] Comment on above: Performed By: #### L 500.4050, L501.2450, L100.0100 ####[facility] [address] [place], [address] Potassium [Moles/Vol] 4.5 mmol/L Normal 3.3-5.1 [facility] Comment on above: Performed By: #### L 500.4050, L501.2450, L100.0100 ####[facility] [address] [place], [address] Sodium [Moles/Vol] 139 mmol/L Normal 133-145 [facility] Comment on above: Performed By: #### L 500.4050, L501.2450, L100.0100 ####[facility] [address] [place], [address] T PROT 7.1 g/dL Normal 5.9-8.4 [facility] Comment on above: Performed By: #### L 500.4050, L501.2450, L100.0100 ####[facility] [address] [place], [address] Urea nitrogen [Mass/Vol] 13 mg/dL Normal 4-19 [facility] Comment on above: Performed By: #### L 500.4050, L501.2450, L100.0100 ####[facility] [address] [place], [address] Eosinophil percentageOrdered By: Maria Luz Mack on 01-04-2025 Eosinophils/100 WBC (Bld) 4.3 % 0-5 [facility] Erythrocyte distribution wid th ratioOrdered By: Maria Luz Mack on 01-04-2025 Erythrocyte distribution width (RBC) [Ratio] 13.6 % 11.6-14.6 [facility] Erythrocyte distribution wid th standard deviationOrdered By: Maria Luz Mack on 01-04-2025 Erythrocyte distribution width (RBC) [Ratio] 44.4 fl High 35.1-43.9 [facility] Gastroenterology Visit Repor ton 01-04-2025 Gastroenterology Visit Report Normal [facility] Glomerular filtration rate ( GFR) estimation/1.73 sq m using serum, plasma, or whole bOrdered By: Maria Luz Mack on 01-04-2025 GFR/1.73 sq M.predicted among non-blacks MDRD (S/P/Bld) [Vol rate/Area] 96 mL/min/{1.73_m2} >60 [facility] Hematocrit Auto (Bld) [Volum e fraction]Ordered By: Maria Luz Mack on 01-04-2025 Hematocrit (Bld) [Volume fraction] 36.8 % Low 37-47 [facility] Hemoglobin measurementOrdere d By: Maria Luz Mack on 01-04-2025 Hemoglobin (Bld) [Mass/Vol] 11.8 g/dL Low 12.0-15.0 [facility] Immature granulocytes/100 WB C Auto (Bld)Ordered By: Maria Luz Mack on 01-04-2025 Immature granulocytes/100 WBC (Bld) 0.300 % 0.0-0.9 [facility] Lipaseon 01-04-2025 Lipase [Catalytic activity/Vol] 34 U/L Normal 13-75 [facility] Comment on above: Result Comment: Lianna dawkins note:LIPASE revised reference range effective 23.New Lipase methodology. Expected to produce lower valuesthan the previous assay method.NEW Reference Range: 13 - 75 U/L Performed By: #### L 500.4050, L501.2450, L100.0100 ####[facility] [address] [place], [address] MCV (mean corpuscular volume ) determinationOrdered By: Maria Luz Mack on 01-04-2025 MCV (RBC) [Entitic vol] 89.1 fL 81-99 [facility] Mean corpuscular hemoglobin (MCH) determinationOrdered By: Maria Luz Mack on 01-04-2025 MCH (RBC) [Entitic mass] 28.6 pg 27.0-32.0 [facility] Monocyte percentageOrdered B y: Maria Luz Mack on 01-04-2025 Monocytes/100 WBC (Bld) 10.2 % High 0-10 [facility] Neutrophil percentageOrdered By: Maria Luz Mack on 01-04-2025 Neutrophils/100 WBC (Bld) 69.8 % 47-70 [facility] No Panel InformationOrdered By: Maria Luz Mack on 01-04-2025 20 U/L <32 [facility] Platelet countOrdered By: Tessie Mack on 01-04-2025 Platelets (Bld) [#/Vol] 254 10*3/uL 150-450 [facility] Potassium measurement (mass/ volume)Ordered By: Maria Luz Mack on 01-04-2025 Potassium (Unsp spec) [Mass/Vol] 4.5 mmol/L 3.3-5.1 [facility] RBC Auto (Bld) [#/Vol]Ordere d By: Maria Luz Mack on 01-04-2025 RBC (Bld) [#/Vol] 4.13 10*6/uL Low 4.2-5.4 [facility] Serum creatinine measurement (mass/volume)Ordered By: Maria Luz Mack on 01-04-2025 Creatinine [Mass/Vol] 0.57 mg/dL Low 0.70-1.20 [facility] Serum globulin measurementOr dered By: Maria Luz Mack on 01-04-2025 Globulin (S) [Mass/Vol] 3.4 g/dL 2.2-4.2 [facility] Serum glucose measurement (m ass/volume)Ordered By: Maria Luz Mack on 01-04-2025 Glucose [Mass/Vol] 111 mg/dL High 70-99 [facility] Serum or plasma alanine fenton otransferase (ALT) measurementOrdered By: Maria Luz Mack on 01-04-2025 ALT [Catalytic activity/Vol] 16 U/L <35 [facility] Serum or plasma albumin rosemary urement (mass/volume)Ordered By: Maria Luz Mack on 01-04-2025 Albumin [Mass/Vol] 3.7 g/dL 3.4-4.8 [facility] Serum or plasma albumin/glob ulin mass ratioOrdered By: Maria Luz Mack on 01-04-2025 Albumin/Globulin [Mass ratio] 1.1 {ratio} 0.9-2.4 [facility] Serum or plasma alkaline aureliano sphatase measurementOrdered By: Maria Luz Mack on 01-04-2025 ALP [Catalytic activity/Vol] 148 U/L High 35-104 [facility] Serum or plasma calcium rosemary urement (mass/volume)Ordered By: Maria Luz Mack on 01-04-2025 Calcium [Mass/Vol] 9.3 mg/dL 7.6-11.0 [facility] Serum or plasma urea nitroge n measurement (mass/volume)Ordered By: Maria Luz Mack on 01-04-2025 Urea nitrogen [Mass/Vol] 13 mg/dL 4-19 [facility] Sodium levelOrdered By: Lacey Mack on 01-04-2025 Sodium [Moles/Vol] 139 mmol/L 133-145 [facility] Total proteinOrdered By: Hanh Mack on 01-04-2025 Protein [Mass/Vol] 7.1 g/dL 5.9-8.4 [facility] White blood cell (WBC) count Ordered By: Maria Luz Mack on 01-04-2025 WBC (Bld) [#/Vol] 7.2 10*3/uL 4.4-11.0 [facility] Absolute lymphocyte countOrd ered By: Raymond Patricio on 12-05-2024 Lymphocytes Auto (Unsp spec) [#/Vol] 0.73 10*3/uL Low 0.83-4.51 [facility] Automated lymphocyte count a s percentage of total leukocytesOrdered By: Raymond Patricio on 12-05-2024 Lymphocytes/100 WBC Auto (Unsp spec) 9.8 % Low 19-41 [facility] BUN/creatinine ratioOrdered By: Raymond Patricio on 12-05-2024 Urea nitrogen/Creatinine [Mass ratio] 30.3 mg/mg High 10-20 [facility] Basic Metabolic Profile (BMP )on 12-05-2024 Anion gap [Moles/Vol] 11 mmol/L Normal 5-15 [facility] Comment on above: Performed By: #### L 100.0100, L500.2500 ####[facility] [address] [place], [address] BUN/CRE 30.3 RATIO High 10-20 [facility] Comment on above: Performed By: #### L 100.0100, L500.2500 ####[facility] [address] [place], [address] Calcium [Mass/Vol] 8.5 mg/dL Normal 7.6-11.0 [facility] Comment on above: Performed By: #### L 100.0100, L500.2500 ####[facility] [address] [place], [address] Chloride [Moles/Vol] 105 mmol/L Normal 96-108 [facility] Comment on above: Performed By: #### L 100.0100, L500.2500 ####[facility] [address] [place], [address] CO2 [Moles/Vol] 24.3 mmol/L Normal 22.0-29.0 [facility] Comment on above: Performed By: #### L 100.0100, L500.2500 ####[facility] [address] [place], [address] Creatinine [Mass/Vol] 0.49 mg/dL Low 0.70-1.20 [facility] Comment on above: Performed By: #### L 100.0100, L500.2500 ####[facility] [address] [place], [address] ECRCL 67.27 ml/min Normal 50-250 [facility] Comment on above: Performed By: #### L 100.0100, L500.2500 ####[facility] [address] [place], [address] GFR/1.73 sq M.predicted among non-blacks MDRD (S/P/Bld) [Vol rate/Area] 100 mL/min/{1.73_m2} Normal >60 [facility] Comment on above: Result Comment: mL/m in/1.73m2 CKD-EPI Creatinine Equation (2020) Performed By: #### L 100.0100, L500.2500 ####[facility] [address] [place], [address] Glucose [Mass/Vol] 98 mg/dL Normal 70-99 [facility] Comment on above: Performed By: #### L 100.0100, L500.2500 ####[facility] [address] [place], [address] Potassium [Moles/Vol] 3.4 mmol/L Normal 3.3-5.1 [facility] Comment on above: Performed By: #### L 100.0100, L500.2500 ####[facility] [address] [place], [address] Sodium [Moles/Vol] 140 mmol/L Normal 133-145 [facility] Comment on above: Performed By: #### L 100.0100, L500.2500 ####[facility] [address] [place], [address] Urea nitrogen [Mass/Vol] 15 mg/dL Normal 4-19 [facility] Comment on above: Performed By: #### L 100.0100, L500.2500 ####[facility] [address] [place], [address] Basophil percentageOrdered B y: Raymond Patricio on 12-05-2024 Basophils/100 WBC (Bld) 0.3 % 0-1 [facility] CBC W/Diff, Automatedon Absolute Lymph 0.73 X10 3/uL Low 0.83-4.51 [facility] Comment on above: Performed By: #### L 100.0100, L500.2500 ####[facility] [address] [place], [address] Absolute Neut 5.3 X10 3/uL Normal 2.0-7.7 [facility] Comment on above: Performed By: #### L 100.0100, L500.2500 ####[facility] [address] [place], [address] Basophils/100 WBC (Bld) 0.3 % Normal 0-1 [facility] Comment on above: Performed By: #### L 100.0100, L500.2500 ####[facility] [address] [place], [address] Eosinophils/100 WBC (Bld) 5.4 % High 0-5 [facility] Comment on above: Performed By: #### L 100.0100, L500.2500 ####[facility] [address] [place], [address] Erythrocyte distribution width (RBC) [Ratio] 14.6 % Normal 11.6-14.6 [facility] Comment on above: Performed By: #### L 100.0100, L500.2500 ####[facility] [address] [place], [address] Hematocrit (Bld) [Volume fraction] 30.2 % Low 37-47 [facility] Comment on above: Performed By: #### L 100.0100, L500.2500 ####[facility] [address] [place], [address] Hemoglobin (Bld) [Mass/Vol] 9.4 g/dL Low 12.0-15.0 [facility] Comment on above: Performed By: #### L 100.0100, L500.2500 ####[facility] [address] [place], [address] IG% 4.700 High 0.0-0.9 [facility] Comment on above: Result Comment: IG% - Immature Granulocytes (promyelocytes, myelocytes andmetamyelocytes) > 1% indicates that a LEFT SHIFT is Present. Performed By: #### L 100.0100, L500.2500 ####[facility] [address] [place], [address] Lymphocytes/100 WBC (Bld) 9.8 % Low 19-41 [facility] Comment on above: Performed By: #### L 100.0100, L500.2500 ####[facility] [address] [place], [address] MCH (RBC) [Entitic mass] 28.5 pg Normal 27.0-32.0 [facility] Comment on above: Performed By: #### L 100.0100, L500.2500 ####[facility] [address] [place], [address] MCHC (RBC) [Mass/Vol] 31.1 g/dL Low 32-36 [facility] Comment on above: Performed By: #### L 100.0100, L500.2500 ####[facility] [address] [place], [address] MCV (RBC) [Entitic vol] 91.5 fL Normal 81-99 [facility] Comment on above: Performed By: #### L 100.0100, L500.2500 ####[facility] [address] [place], [address] Monocytes/100 WBC (Bld) 7.8 % Normal 0-10 [facility] Comment on above: Performed By: #### L 100.0100, L500.2500 ####[facility] [address] [place], [address] Neutrophils/100 WBC (Bld) 72.0 % High 47-70 [facility] Comment on above: Performed By: #### L 100.0100, L500.2500 ####[facility] [address] [place], [address] Nucleated RBC (Bld) [#/Vol] 0 10*3/uL Normal 0-5 [facility] Comment on above: Performed By: #### L 100.0100, L500.2500 ####[facility] [address] [place], [address] Platelet mean volume (Bld) [Entitic vol] 10.2 fL Normal 6.2-12.0 [facility] Comment on above: Performed By: #### L 100.0100, L500.2500 ####[facility] [address] [place], [address] Platelets (Bld) [#/Vol] 266 10*3/uL Normal 150-450 [facility] Comment on above: Performed By: #### L 100.0100, L500.2500 ####[facility] [address] [place], [address] RBC (Bld) [#/Vol] 3.30 10*6/uL Low 4.2-5.4 [facility] Comment on above: Performed By: #### L 100.0100, L500.2500 ####[facility] [address] [place], [address] RDW SD 49.3 fl High 35.1-43.9 [facility] Comment on above: Performed By: #### L 100.0100, L500.2500 ####[facility] [address] [place], [address] WBC (Bld) [#/Vol] 7.4 10*3/uL Normal 4.4-11.0 [facility] Comment on above: Performed By: #### L 100.0100, L500.2500 ####[facility] [address] [place], [address] Carbon dioxide measurementOr dered By: Raymond Patricio on 12-05-2024 CO2 [Moles/Vol] 24.3 mmol/L 22.0-29.0 [facility] Chloride measurementOrdered By: Raymond Patricio on 12-05-2024 Chloride [Moles/Vol] 105 mmol/L 96-108 [facility] Consultation - Infectious Dx on 12-05-2024 Consultation - Infectious Dx Normal [facility] Eosinophil percentageOrdered By: Raymond Patricio on 12-05-2024 Eosinophils/100 WBC (Bld) 5.4 % High 0-5 [facility] Erythrocyte distribution wid th ratioOrdered By: Raymond Patricio on 12-05-2024 Erythrocyte distribution width (RBC) [Ratio] 14.6 % 11.6-14.6 [facility] Erythrocyte distribution wid th standard deviationOrdered By: Raymond Patricio on 12-05-2024 Erythrocyte distribution width (RBC) [Ratio] 49.3 fl High 35.1-43.9 [facility] Glomerular filtration rate ( GFR) estimation/1.73 sq m using serum, plasma, or whole bOrdered By: Raymond Patricio on 12-05-2024 GFR/1.73 sq M.predicted among non-blacks MDRD (S/P/Bld) [Vol rate/Area] 100 mL/min/{1.73_m2} >60 [facility] Hematocrit Auto (Bld) [Volum e fraction]Ordered By: Raymond Patricio on 12-05-2024 Hematocrit (Bld) [Volume fraction] 30.2 % Low 37-47 [facility] Hemoglobin measurementOrdere d By: Raymond Patricio on 12-05-2024 Hemoglobin (Bld) [Mass/Vol] 9.4 g/dL Low 12.0-15.0 [facility] Immature granulocytes/100 WB C Auto (Bld)Ordered By: Raymond Patricio on 12-05-2024 Immature granulocytes/100 WBC (Bld) 4.700 % High 0.0-0.9 [facility] MCV (mean corpuscular volume ) determinationOrdered By: Raymond Patricio on 12-05-2024 MCV (RBC) [Entitic vol] 91.5 fL 81-99 [facility] Mean corpuscular hemoglobin (MCH) determinationOrdered By: Raymond Patricio on 12-05-2024 MCH (RBC) [Entitic mass] 28.5 pg 27.0-32.0 [facility] Monocyte percentageOrdered B y: Raymond Patricio on 12-05-2024 Monocytes/100 WBC (Bld) 7.8 % 0-10 [facility] Neutrophil percentageOrdered By: Raymond Patricio on 12-05-2024 Neutrophils/100 WBC (Bld) 72.0 % High 47-70 [facility] Platelet countOrdered By: Senait Patricio on 12-05-2024 Platelets (Bld) [#/Vol] 266 10*3/uL 150-450 [facility] RBC Auto (Bld) [#/Vol]Ordere d By: Raymond Patricio on 12-05-2024 RBC (Bld) [#/Vol] 3.30 10*6/uL Low 4.2-5.4 [facility] Serum creatinine measurement (mass/volume)Ordered By: Raymond Patricio on 12-05-2024 Creatinine [Mass/Vol] 0.49 mg/dL Low 0.70-1.20 [facility] Serum glucose measurement (m ass/volume)Ordered By: Raymond Patricio on 12-05-2024 Glucose [Mass/Vol] 98 mg/dL 70-99 [facility] Serum or plasma anion gap de termination (moles/volume)Ordered By: Raymond Patricio on 12-05-2024 Anion gap [Moles/Vol] 11 mmol/L 5-15 [facility] Serum or plasma calcium rosemary urement (mass/volume)Ordered By: Raymond Patricio on 12-05-2024 Calcium [Mass/Vol] 8.5 mg/dL 7.6-11.0 [facility] Serum or plasma potassium me asurementOrdered By: Raymond Patricio on 12-05-2024 Potassium [Moles/Vol] 3.4 mmol/L 3.3-5.1 [facility] Serum or plasma sodium measu rement (moles/volume)Ordered By: Raymond Patricio on 12-05-2024 Sodium [Moles/Vol] 140 mmol/L 133-145 [facility] Serum or plasma urea nitroge n measurement (mass/volume)Ordered By: Raymond Patricio on 12-05-2024 Urea nitrogen [Mass/Vol] 15 mg/dL 4-19 [facility] White blood cell (WBC) count Ordered By: Raymond Patricio on 12-05-2024 WBC (Bld) [#/Vol] 7.4 10*3/uL 4.4-11.0 [facility] Wound Cultureon 12-04-2024 WC UNK UNK tibial membrane right knee No growth aerobically. Normal [facility] Comment on above: Performed By: #### M 100.4001, M100.2000, M600.2000, M600.2200, M100.3000 ####[facility] [address] [place], [address] WC UNK UNK femoral membrane right knee No growth aerobically. Normal [facility] Comment on above: Performed By: #### M 600.2200, M100.3000, M100.2000, M100.4001, M600.2000 ####[facility] [address] [place], [address] WC UNK UNK suprapatella pouch right knee No growth aerobically. Normal [facility] Comment on above: Performed By: #### M 600.2000, M100.2000, M100.4001, M600.2200, M100.3000 ####[facility] [address] [place], [address] CBC W/Diff, Automatedon Absolute Lymph 0.45 X10 3/uL Low 0.83-4.51 [facility] Comment on above: Performed By: #### L 100.0100 ####[facility] [address] [place], [address] Absolute Neut 5.0 X10 3/uL Normal 2.0-7.7 [facility] Comment on above: Performed By: #### L 100.0100 ####[facility] [address] [place], [address] Basophils/100 WBC (Bld) 0.3 % Normal 0-1 [facility] Comment on above: Performed By: #### L 100.0100 ####[facility] [address] [place], [address] Eosinophils/100 WBC (Bld) 3.3 % Normal 0-5 [facility] Comment on above: Performed By: #### L 100.0100 ####[facility] [address] [place], [address] Erythrocyte distribution width (RBC) [Ratio] 14.1 % Normal 11.6-14.6 [facility] Comment on above: Performed By: #### L 100.0100 ####[facility] [address] [place], [address] Hematocrit (Bld) [Volume fraction] 28.0 % Low 37-47 [facility] Comment on above: Performed By: #### L 100.0100 ####[facility] [address] [place], [address] Hemoglobin (Bld) [Mass/Vol] 9.1 g/dL Low 12.0-15.0 [facility] Comment on above: Performed By: #### L 100.0100 ####[facility] [address] [place], [address] IG% 1.700 High 0.0-0.9 [facility] Comment on above: Result Comment: IG% - Immature Granulocytes (promyelocytes, myelocytes andmetamyelocytes) > 1% indicates that a LEFT SHIFT is Present. Performed By: #### L 100.0100 ####[facility] [address] [place], [address] Lymphocytes/100 WBC (Bld) 7.1 % Low 19-41 [facility] Comment on above: Performed By: #### L 100.0100 ####[facility] [address] [place], [address] MCH (RBC) [Entitic mass] 28.8 pg Normal 27.0-32.0 [facility] Comment on above: Performed By: #### L 100.0100 ####[facility] [address] [place], [address] MCHC (RBC) [Mass/Vol] 32.5 g/dL Normal 32-36 [facility] Comment on above: Performed By: #### L 100.0100 ####[facility] [address] [place], [address] MCV (RBC) [Entitic vol] 88.6 fL Normal 81-99 [facility] Comment on above: Performed By: #### L 100.0100 ####[facility] [address] [place], [address] Monocytes/100 WBC (Bld) 9.0 % Normal 0-10 [facility] Comment on above: Performed By: #### L 100.0100 ####[facility] [address] [place], [address] Neutrophils/100 WBC (Bld) 78.6 % High 47-70 [facility] Comment on above: Performed By: #### L 100.0100 ####[facility] [address] [place], [address] Nucleated RBC (Bld) [#/Vol] 0 10*3/uL Normal 0-5 [facility] Comment on above: Performed By: #### L 100.0100 ####[facility] [address] [place], [address] Platelet mean volume (Bld) [Entitic vol] 10.9 fL Normal 6.2-12.0 [facility] Comment on above: Performed By: #### L 100.0100 ####[facility] [address] [place], [address] Platelets (Bld) [#/Vol] 180 10*3/uL Normal 150-450 [facility] Comment on above: Performed By: #### L 100.0100 ####[facility] [address] [place], [address] RBC (Bld) [#/Vol] 3.16 10*6/uL Low 4.2-5.4 [facility] Comment on above: Performed By: #### L 100.0100 ####[facility] [address] [place], [address] RDW SD 46.2 fl High 35.1-43.9 [facility] Comment on above: Performed By: #### L 100.0100 ####[facility] [address] [place], [address] WBC (Bld) [#/Vol] 6.3 10*3/uL Normal 4.4-11.0 [facility] Comment on above: Performed By: #### L 100.0100 ####[facility] [address] [place], [address] Basic Metabolic Profile (BMP )on 12-02-2024 Anion gap [Moles/Vol] 10 mmol/L Normal 5-15 [facility] Comment on above: Performed By: #### L 500.2500 ####[facility] [address] [place], [address] BUN/CRE 39.7 RATIO High 10-20 [facility] Comment on above: Performed By: #### L 500.2500 ####[facility] [address] [place], [address] Calcium [Mass/Vol] 8.4 mg/dL Normal 7.6-11.0 [facility] Comment on above: Performed By: #### L 500.2500 ####[facility] [address] [place], [address] Chloride [Moles/Vol] 106 mmol/L Normal 96-108 [facility] Comment on above: Performed By: #### L 500.2500 ####[facility] [address] [place], [address] CO2 [Moles/Vol] 21.7 mmol/L Low 22.0-29.0 [facility] Comment on above: Performed By: #### L 500.2500 ####[facility] [address] [place], [address] Creatinine [Mass/Vol] 0.41 mg/dL Low 0.70-1.20 [facility] Comment on above: Performed By: #### L 500.2500 ####[facility] [address] [place], [address] ECRCL 67.27 ml/min Normal [facility] Comment on above: Performed By: #### L 500.2500 ####[facility] [address] [place], [address] GFR/1.73 sq M.predicted among non-blacks MDRD (S/P/Bld) [Vol rate/Area] 104 mL/min/{1.73_m2} Normal >60 [facility] Comment on above: Result Comment: mL/m in/1.73m2 CKD-EPI Creatinine Equation (2020) Performed By: #### L 500.2500 ####[facility] [address] [place], [address] Glucose [Mass/Vol] 118 mg/dL High 70-99 [facility] Comment on above: Performed By: #### L 500.2500 ####[facility] [address] [place], [address] Potassium [Moles/Vol] 3.5 mmol/L Normal 3.3-5.1 [facility] Comment on above: Performed By: #### L 500.2500 ####[facility] [address] [place], [address] Sodium [Moles/Vol] 137 mmol/L Normal 133-145 [facility] Comment on above: Performed By: #### L 500.2500 ####[facility] [address] [place], [address] Urea nitrogen [Mass/Vol] 16 mg/dL Normal 4-19 [facility] Comment on above: Performed By: #### L 500.2500 ####[facility] [address] [place], [address] CBC W/Diff, Automatedon 02-2 -2024 Absolute Lymph 0.37 X10 3/uL Low 0.83-4.51 [facility] Comment on above: Performed By: #### L 100.0100 ####[facility] [address] [place], [address] Absolute Neut 3.1 X10 3/uL Normal 2.0-7.7 [facility] Comment on above: Performed By: #### L 100.0100 ####[facility] [address] [place], [address] Basophils/100 WBC (Bld) 0.2 % Normal 0-1 [facility] Comment on above: Performed By: #### L 100.0100 ####[facility] [address] [place], [address] Eosinophils/100 WBC (Bld) 5.4 % High 0-5 [facility] Comment on above: Performed By: #### L 100.0100 ####[facility] [address] [place], [address] Erythrocyte distribution width (RBC) [Ratio] 14.3 % Normal 11.6-14.6 [facility] Comment on above: Performed By: #### L 100.0100 ####[facility] [address] [place], [address] Hematocrit (Bld) [Volume fraction] 28.0 % Low 37-47 [facility] Comment on above: Performed By: #### L 100.0100 ####[facility] [address] [place], [address] Hemoglobin (Bld) [Mass/Vol] 9.1 g/dL Low 12.0-15.0 [facility] Comment on above: Performed By: #### L 100.0100 ####[facility] [address] [place], [address] IG% 1.200 High 0.0-0.9 [facility] Comment on above: Result Comment: IG% - Immature Granulocytes (promyelocytes, myelocytes andmetamyelocytes) > 1% indicates that a LEFT SHIFT is Present. Performed By: #### L 100.0100 ####[facility] [address] [place], [address] Lymphocytes/100 WBC (Bld) 8.7 % Low 19-41 [facility] Comment on above: Performed By: #### L 100.0100 ####[facility] [address] [place], [address] MCH (RBC) [Entitic mass] 29.4 pg Normal 27.0-32.0 [facility] Comment on above: Performed By: #### L 100.0100 ####[facility] [address] [place], [address] MCHC (RBC) [Mass/Vol] 32.5 g/dL Normal 32-36 [facility] Comment on above: Performed By: #### L 100.0100 ####[facility] [address] [place], [address] MCV (RBC) [Entitic vol] 90.3 fL Normal 81-99 [facility] Comment on above: Performed By: #### L 100.0100 ####[facility] [address] [place], [address] Monocytes/100 WBC (Bld) 10.8 % High 0-10 [facility] Comment on above: Performed By: #### L 100.0100 ####[facility] [address] [place], [address] Neutrophils/100 WBC (Bld) 73.7 % High 47-70 [facility] Comment on above: Performed By: #### L 100.0100 ####[facility] [address] [place], [address] Nucleated RBC (Bld) [#/Vol] 0 10*3/uL Normal 0-5 [facility] Comment on above: Performed By: #### L 100.0100 ####[facility] [address] [place], [address] Platelet mean volume (Bld) [Entitic vol] 11.1 fL Normal 6.2-12.0 [facility] Comment on above: Performed By: #### L 100.0100 ####[facility] [address] [place], [address] Platelets (Bld) [#/Vol] 130 10*3/uL Low 150-450 [facility] Comment on above: Performed By: #### L 100.0100 ####[facility] [address] [place], [address] RBC (Bld) [#/Vol] 3.10 10*6/uL Low 4.2-5.4 [facility] Comment on above: Performed By: #### L 100.0100 ####[facility] [address] [place], [address] RDW SD 47.3 fl High 35.1-43.9 [facility] Comment on above: Performed By: #### L 100.0100 ####[facility] [address] [place], [address] WBC (Bld) [#/Vol] 4.3 10*3/uL Low 4.4-11.0 [facility] Comment on above: Performed By: #### L 100.0100 ####[facility] [address] [place], [address] Culture, Anaerobic Any [facility] grupo 12-02-2024 CUAN UNK UNK tibial membrane right knee No anaerobic bacteria isolated. Normal [facility] Comment on above: Performed By: #### M 100.4001, M100.2000, M600.2000, M600.2200, M100.3000 ####[facility] [address] [place], [address] CUAN UNK UNK femoral membrane right knee No anaerobic bacteria isolated. Normal [facility] Comment on above: Performed By: #### M 600.2200, M100.3000, M100.2000, M100.4001, M600.2000 ####[facility] [address] [place], [address] CUAN UNK UNK suprapatella pouch right knee No anaerobic bacteria isolated. Normal [facility] Comment on above: Performed By: #### M 600.2000, M100.2000, M100.4001, M600.2200, M100.3000 ####[facility] [address] [place], [address] Basic Metabolic Profile (BMP )on 12-01-2024 Anion gap [Moles/Vol] 5 mmol/L Low 5-15 [facility] Comment on above: Performed By: #### L 100.0100, L500.2500 ####[facility] [address] [place], [address] BUN/CRE 28.5 RATIO High 10-20 [facility] Comment on above: Performed By: #### L 100.0100, L500.2500 ####[facility] [address] [place], [address] Calcium [Mass/Vol] 8.2 mg/dL Normal 7.6-11.0 [facility] Comment on above: Performed By: #### L 100.0100, L500.2500 ####[facility] [address] [place], [address] Chloride [Moles/Vol] 106 mmol/L Normal 96-108 [facility] Comment on above: Performed By: #### L 100.0100, L500.2500 ####[facility] [address] [place], [address] CO2 [Moles/Vol] 36.0 mmol/L High 22.0-29.0 [facility] Comment on above: Performed By: #### L 100.0100, L500.2500 ####[facility] [address] [place], [address] Creatinine [Mass/Vol] 0.6 mg/dL Normal 0.6-1.0 [facility] Comment on above: Performed By: #### L 100.0100, L500.2500 ####[facility] [address] [place], [address] ECRCL 67.27 ml/min Normal [facility] Comment on above: Performed By: #### L 100.0100, L500.2500 ####[facility] [address] [place], [address] GFR/1.73 sq M.predicted among non-blacks MDRD (S/P/Bld) [Vol rate/Area] 96 mL/min/{1.73_m2} Normal >60 [facility] Comment on above: Result Comment: mL/m in/1.73m2 CKD-EPI Creatinine Equation (2020) Performed By: #### L 100.0100, L500.2500 ####[facility] [address] [place], [address] Glucose [Mass/Vol] 123 mg/dL High 70-99 [facility] Comment on above: Performed By: #### L 100.0100, L500.2500 ####[facility] [address] [place], [address] Potassium [Moles/Vol] 3.8 mmol/L Normal 3.3-5.1 [facility] Comment on above: Performed By: #### L 100.0100, L500.2500 ####[facility] [address] [place], [address] Sodium [Moles/Vol] 137 mmol/L Normal 133-145 [facility] Comment on above: Performed By: #### L 100.0100, L500.2500 ####[facility] [address] [place], [address] Urea nitrogen [Mass/Vol] 16 mg/dL Normal 4-19 [facility] Comment on above: Performed By: #### L 100.0100, L500.2500 ####[facility] [address] [place], [address] CBC W/Diff, Automatedon 11-06 Absolute Lymph 0.46 X10 3/uL Low 0.83-4.51 [facility] Comment on above: Performed By: #### L 100.0100, L500.2500 ####[facility] [address] [place], [address] Absolute Neut 4.3 X10 3/uL Normal 2.0-7.7 [facility] Comment on above: Performed By: #### L 100.0100, L500.2500 ####[facility] [address] [place], [address] Basophils/100 WBC (Bld) 0.2 % Normal 0-1 [facility] Comment on above: Performed By: #### L 100.0100, L500.2500 ####[facility] [address] [place], [address] Eosinophils/100 WBC (Bld) 0.9 % Normal 0-5 [facility] Comment on above: Performed By: #### L 100.0100, L500.2500 ####[facility] [address] [place], [address] Erythrocyte distribution width (RBC) [Ratio] 14.4 % Normal 11.6-14.6 [facility] Comment on above: Performed By: #### L 100.0100, L500.2500 ####[facility] [address] [place], [address] Hematocrit (Bld) [Volume fraction] 31.0 % Low 37-47 [facility] Comment on above: Performed By: #### L 100.0100, L500.2500 ####[facility] [address] [place], [address] Hemoglobin (Bld) [Mass/Vol] 9.5 g/dL Low 12.0-15.0 [facility] Comment on above: Performed By: #### L 100.0100, L500.2500 ####[facility] [address] [place], [address] IG% 0.700 Normal 0.0-0.9 [facility] Comment on above: Result Comment: IG% - Immature Granulocytes (promyelocytes, myelocytes andmetamyelocytes) > 1% indicates that a LEFT SHIFT is Present. Performed By: #### L 100.0100, L500.2500 ####[facility] [address] [place], [address] Lymphocytes/100 WBC (Bld) 8.3 % Low 19-41 [facility] Comment on above: Performed By: #### L 100.0100, L500.2500 ####[facility] [address] [place], [address] MCH (RBC) [Entitic mass] 28.8 pg Normal 27.0-32.0 [facility] Comment on above: Performed By: #### L 100.0100, L500.2500 ####[facility] [address] [place], [address] MCHC (RBC) [Mass/Vol] 30.6 g/dL Low 32-36 [facility] Comment on above: Performed By: #### L 100.0100, L500.2500 ####[facility] [address] [place], [address] MCV (RBC) [Entitic vol] 93.9 fL Normal 81-99 [facility] Comment on above: Performed By: #### L 100.0100, L500.2500 ####[facility] [address] [place], [address] Monocytes/100 WBC (Bld) 12.0 % High 0-10 [facility] Comment on above: Performed By: #### L 100.0100, L500.2500 ####[facility] [address] [place], [address] Neutrophils/100 WBC (Bld) 77.9 % High 47-70 [facility] Comment on above: Performed By: #### L 100.0100, L500.2500 ####[facility] [address] [place], [address] Nucleated RBC (Bld) [#/Vol] 0 10*3/uL Normal 0-5 [facility] Comment on above: Performed By: #### L 100.0100, L500.2500 ####[facility] [address] [place], [address] Platelet mean volume (Bld) [Entitic vol] 10.4 fL Normal 6.2-12.0 [facility] Comment on above: Performed By: #### L 100.0100, L500.2500 ####[facility] [address] [place], [address] Platelets (Bld) [#/Vol] 142 10*3/uL Low 150-450 [facility] Comment on above: Performed By: #### L 100.0100, L500.2500 ####[facility] [address] [place], [address] RBC (Bld) [#/Vol] 3.30 10*6/uL Low 4.2-5.4 [facility] Comment on above: Performed By: #### L 100.0100, L500.2500 ####[facility] [address] [place], [address] RDW SD 49.7 fl High 35.1-43.9 [facility] Comment on above: Performed By: #### L 100.0100, L500.2500 ####[facility] [address] [place], [address] WBC (Bld) [#/Vol] 5.6 10*3/uL Normal 4.4-11.0 [facility] Comment on above: Performed By: #### L 100.0100, L500.2500 ####[facility] [address] [place], [address] Gram Stainon 12-01-2024 GS UNK UNK tibial membrane right knee Gram Stain No organisms seen 1+ White Blood Cells Normal [facility] Comment on above: Performed By: #### M 100.4001, M100.2000, M600.2000, M600.2200, M100.3000 ####[facility] [address] [place], [address] GS UNK UNK femoral membrane right knee Gram Stain 3+ White Blood Cells No organisms seen Normal [facility] Comment on above: Performed By: #### M 600.2200, M100.3000, M100.2000, M100.4001, M600.2000 ####[facility] [address] [place], [address] GS UNK UNK suprapatella pouch right knee Gram Stain Rare White Blood Cells No organisms seen Normal [facility] Comment on above: Performed By: #### M 600.2000, M100.2000, M100.4001, M600.2200, M100.3000 ####[facility] [address] [place], [address] Acid fast bacillus (AFB) cul tureOrdered By: Elmo Velásquez on 11-30-2024 Mycobacterium sp identified Org specific cx Nom (Unsp spec) [facility] Anaerobic cultureOrdered By: Elmo Velásquez on 11-30-2024 Bacteria identified Anaer cx Nom (Unsp spec) No anaerobic bacteria isolated. [facility] Fungus cultureOrdered By: St ros Velásquez on 11-30-2024 Fungus identified Cx Nom (Unsp spec) [facility] Fungus stainOrdered By: Tristin Velásquez on 11-30-2024 Fungus identified Fungus stain Nom (Unsp spec) [facility] Gram stainOrdered By: Elmo Velásquez on 11-30-2024 Microscopic observation Gram stain Nom (Unsp spec) [facility] H AND P Exam - Surgicalon H&P Exam - Surgical Normal [facility] MR/POSTOP.ANEon 11-30-2024 MR/POSTOP.ANE Normal [facility] [id number] 11-30-2024 MR/POSTOPAN2 Normal [facility] Operative Reporton 5 Operative Report Normal [facility] Operative Report Normal [facility] [facility] Acid Fast Bacillus Cultureon 11-28-2024 tAFBC Normal [facility] Comment on above: Performed By: #### M 100.2900, M600.2000, L200.0400, M100.4001, M300.2000, M300.3000, M100.2000 ####[facility] [address] [place], [place], [address] Acid Fast Bacillus Smear/Flu oron 11-28-2024 tafb Normal [facility] Comment on above: Performed By: #### M 100.2900, M600.2000, L200.0400, M100.4001, M300.2000, M300.3000, M100.2000 ####[facility] [address] [place], [place], [address] Culture, Fungus 8482on 11-28 CUF Normal [facility] Comment on above: Performed By: #### M 100.2900, M600.2000, L200.0400, M100.4001, M300.2000, M300.3000, M100.1999 ####[facility] [address] [place], [place], [address] MR/PAT.ANEon 11-28-2024 MR/PAT.ANE Normal [facility] Prealbumin [id number] 5 Prealbumin [Mass/Vol] 17 mg/dL Normal [facility] Comment on above: Result Comment: Perf ormed at: - [facility] [id number] Director: Darryl Mahmood PhD, Phone: [phone] Performed By: #### L 3300.6400, L100.0100, L501.9985, L500.4050 ####[facility] [address] [place], [place], [id number] Absolute lymphocyte countOrd ered By: Ariel Traylor on 11-23-2024 Lymphocytes Auto (Unsp spec) [#/Vol] 0.60 10*3/uL Low 0.83-4.51 [facility] Automated lymphocyte count a s percentage of total leukocytesOrdered By: Ariel Traylor on 11-23-2024 Lymphocytes/100 WBC Auto (Unsp spec) 10.0 % Low 19-41 [facility] Basophil percentageOrdered B y: Ariel Traylor on 11-23-2024 Basophils/100 WBC (Bld) 0.5 % 0-1 [facility] Bilirubin, totalOrdered By: Ariel Traylor on 11-23-2024 Bilirubin [Mass/Vol] 0.30 mg/dL 0.20-1.00 [facility] CBC W/Diff, Automatedon 11-05 Neutrophils/100 WBC (Bld) 75.9 % High 47-70 [facility] Comment on above: Performed By: #### L 3300.6400, L100.0100, L501.9985, L500.4050 ####[facility] [address] [place], [place], [id number] Carbon dioxide measurementOr dered By: Ariel Traylor on 11-23-2024 CO2 [Moles/Vol] 27.0 mmol/L 21.0-32.0 [facility] Chloride measurementOrdered By: Ariel Traylor on 11-23-2024 Chloride [Moles/Vol] 108 mmol/L High 98-107 [facility] Comprehensive Metabolic Prof ilon 11-23-2024 Albumin [Mass/Vol] 2.6 g/dL Low 3.2-5.0 [facility] Comment on above: Performed By: #### L 3300.6400, L100.0100, L501.9985, L500.4050 ####[facility] [address] [place], [place], [id number] Albumin/Globulin [Mass ratio] 0.6 {ratio} Low 0.9-2.4 [facility] Comment on above: Performed By: #### L 3300.6400, L100.0100, L501.9985, L500.4050 ####[facility] [address] [place], [address] ALK P 141 U/L High 45-117 [facility] Comment on above: Performed By: #### L 3300.6400, L100.0100, L501.9985, L500.4050 ####[facility] [address] [place], [address] ALT [Catalytic activity/Vol] 15 U/L Normal 13-56 [facility] Comment on above: Performed By: #### L 3300.6400, L100.0100, L501.9985, L500.4050 ####[facility] [address] [place], [address] AST [Catalytic activity/Vol] 18 U/L Normal 15-37 [facility] Comment on above: Performed By: #### L 3300.6400, L100.0100, L501.9985, L500.4050 ####[facility] [address] [place], [address] Bilirubin [Mass/Vol] 0.30 mg/dL Normal 0.20-1.00 [facility] Comment on above: Result Comment: For patients on eltrombopag therapy, use of Dimension Connelly TBIL is not recommended. Performed By: #### L 3300.6400, L100.0100, L501.9985, L500.4050 ####[facility] [address] [place], [address] BUN/CRE 33.4 RATIO High 10-20 [facility] Comment on above: Performed By: #### L 3300.6400, L100.0100, L501.9985, L500.4050 ####[facility] [address] [place], [address] CA,Total 8.9 mg/dL Normal 8.5-10.1 [facility] Comment on above: Performed By: #### L 3300.6400, L100.0100, L501.9985, L500.4050 ####[facility] [address] [place], [address] Chloride [Moles/Vol] 108 mmol/L High 98-107 [facility] Comment on above: Performed By: #### L 3300.6400, L100.0100, L501.9985, L500.4050 ####[facility] [address] [place], [address] CO2 [Moles/Vol] 27.0 mmol/L Normal 21.0-32.0 [facility] Comment on above: Performed By: #### L 3300.6400, L100.0100, L501.9985, L500.4050 ####[facility] [address] [place], [address] Creatinine [Mass/Vol] 0.42 mg/dL Low 0.55-1.02 [facility] Comment on above: Result Comment: The validity of the calculated GFR GFRAA in patients over70 years has not been determined. Clinical correlation isessential. Performed By: #### L 3300.6400, L100.0100, L501.9985, L500.4050 ####[facility] [address] [place], [address] EST GFR - AA 191 mL/min Normal >60 [facility] Comment on above: Result Comment: Afri can British GFR Calc Performed By: #### L 3300.6400, L100.0100, L501.9985, L500.4050 ####[facility] [address] [place], [address] GAP 7 Normal 5-15 [facility] Comment on above: Performed By: #### L 3300.6400, L100.0100, L501.9985, L500.4050 ####[facility] [address] [place], [address] GFR/1.73 sq M.predicted among non-blacks MDRD (S/P/Bld) [Vol rate/Area] 158 mL/min/{1.73_m2} Normal >60 [facility] Comment on above: Result Comment: Non- GFR Calc Performed By: #### L 3300.6400, L100.0100, L501.9985, L500.4050 ####[facility] [address] [place], [address] Globulin (S) [Mass/Vol] 4.0 g/dL Normal 2.2-4.2 [facility] Comment on above: Performed By: #### L 3300.6400, L100.0100, L501.9985, L500.4050 ####[facility] [address] [place], [address] Glucose [Mass/Vol] 103 mg/dL Normal 74-106 [facility] Comment on above: Result Comment: Fast ing Glucose result from 100 to 125 mg/dLsuggests IMPAIRED HOMEOSTASIS per A.D.A. criteria. Performed By: #### L 3300.6400, L100.0100, L501.9985, L500.4050 ####[facility] [address] [place], [address] Potassium [Moles/Vol] 3.4 mmol/L Low 3.5-5.1 [facility] Comment on above: Performed By: #### L 3300.6400, L100.0100, L501.9985, L500.4050 ####[facility] [address] [place], [address] Sodium [Moles/Vol] 142 mmol/L Normal 136-145 [facility] Comment on above: Performed By: #### L 3300.6400, L100.0100, L501.9985, L500.4050 ####[facility] [address] [place], [address] T PROT 6.6 g/dL Normal 6.4-8.2 [facility] Comment on above: Performed By: #### L 3300.6400, L100.0100, L501.9985, L500.4050 ####[facility] [address] [place], [address] Urea nitrogen [Mass/Vol] 14 mg/dL Normal 7-18 [facility] Comment on above: Performed By: #### L 3300.6400, L100.0100, L501.9985, L500.4050 ####[facility] [address] [place], [address] Eosinophil percentageOrdered By: Ariel Traylor on 11-23-2024 Eosinophils/100 WBC (Bld) 3.5 % 0-5 [facility] Erythrocyte distribution wid th ratioOrdered By: Ariel Tarylor on 11-23-2024 Erythrocyte distribution width (RBC) [Ratio] 14.8 % High 11.6-14.6 [facility] Erythrocyte distribution wid th standard deviationOrdered By: Ariel Traylor on 11-23-2024 Erythrocyte distribution width (RBC) [Ratio] 50.8 fl High 35.1-43.9 [facility] Glomerular filtration rate ( GFR) estimationOrdered By: Ariel Traylor on 11-23-2024 GFR/1.73 sq M.predicted among non-blacks MDRD (S/P/Bld) [Vol rate/Area] 158 mL/min/{1.73_m2} >60 [facility] Glucose measurementOrdered B y: Ariel Traylor on 11-23-2024 Glucose [Mass/Vol] 103 mg/dL 74-106 [facility] Hematocrit Auto (Bld) [Volum e fraction]Ordered By: Ariel Traylor on 11-23-2024 Hematocrit (Bld) [Volume fraction] 34.5 % Low 37-47 [facility] Hemoglobin A1con 11-23-2024 HbA1c (Bld) [Mass fraction] 5.3 % Normal 3.8-5.6 [facility] Comment on above: Result Comment: Norm al < 5.7 % Prediabetic 5.7 - 6.4 % Diabetic >or= 6.5 % Please note range changes. Performed By: #### L 3300.6400, L100.0100, L501.9985, L500.4050 ####[facility] [address] [place], [address] Hemoglobin A1c percentageOrd ered By: Ariel Traylor on 11-23-2024 HbA1c (Bld) [Mass fraction] 5.3 % 3.8-5.6 [facility] Hemoglobin measurementOrdere d By: Ariel Traylor on 11-23-2024 Hemoglobin (Bld) [Mass/Vol] 10.8 g/dL Low 12.0-15.0 [facility] Immature granulocytes/100 WB C Auto (Bld)Ordered By: Ariel Traylor on 11-23-2024 Immature granulocytes/100 WBC (Bld) 0.300 % 0.0-0.9 [facility] MCV (mean corpuscular volume ) determinationOrdered By: Ariel Traylor on 11-23-2024 MCV (RBC) [Entitic vol] 93.8 fL 81-99 [facility] Mean corpuscular hemoglobin (MCH) determinationOrdered By: Ariel Traylor on 11-23-2024 MCH (RBC) [Entitic mass] 29.3 pg 27.0-32.0 [facility] Monocyte percentageOrdered B y: Ariel Traylor on 11-23-2024 Monocytes/100 WBC (Bld) 9.8 % 0-10 [facility] Neutrophil percentageOrdered By: Ariel Traylor on 11-23-2024 Neutrophils/100 WBC (Bld) 75.9 % High 47-70 [facility] No Panel InformationOrdered By: Ariel Traylor on 11-23-2024 18 U/L 15-37 [facility] Platelet countOrdered By: Gail Traylor on 11-23-2024 Platelets (Bld) [#/Vol] 235 10*3/uL 150-450 [facility] Potassium measurementOrdered By: Ariel Traylor on 11-23-2024 Potassium [Moles/Vol] 3.4 mmol/L Low 3.5-5.1 [facility] RBC Auto (Bld) [#/Vol]Ordere d By: Ariel Traylor on 11-23-2024 RBC (Bld) [#/Vol] 3.68 10*6/uL Low 4.2-5.4 [facility] Serum globulin measurementOr dered By: Ariel Traylor on 11-23-2024 Globulin (S) [Mass/Vol] 4.0 g/dL 2.2-4.2 [facility] Serum or plasma alanine fenton otransferase (ALT) measurementOrdered By: Ariel Traylor on 11-23-2024 ALT [Catalytic activity/Vol] 15 U/L 13-56 [facility] Serum or plasma albumin rosemary urement (mass/volume)Ordered By: Ariel Traylor on 11-23-2024 Albumin [Mass/Vol] 2.6 g/dL Low 3.2-5.0 [facility] Serum or plasma alkaline aureliano sphatase measurementOrdered By: Ariel Traylor on 11-23-2024 ALP [Catalytic activity/Vol] 141 U/L High 45-117 [facility] Serum or plasma calcium rosemary urement (mass/volume)Ordered By: Ariel Traylor on 11-23-2024 Calcium [Mass/Vol] 8.9 mg/dL 8.5-10.1 [facility] Serum or plasma creatinine m easurement (mass/volume)Ordered By: Ariel Traylor on 11-23-2024 Creatinine [Mass/Vol] 0.42 mg/dL Low 0.55-1.02 [facility] Serum or plasma urea nitroge n measurement (mass/volume)Ordered By: Ariel Traylor on 11-23-2024 Urea nitrogen [Mass/Vol] 14 mg/dL 7-18 [facility] Serum prealbumin measurement by immunoassayOrdered By: Ariel Traylor on 11-23-2024 Serum prealbumin measurement by immunoassay 17 mg/dL 9-32 [facility] Sodium levelOrdered By: Lamin Traylor on 11-23-2024 Sodium [Moles/Vol] 142 mmol/L 136-145 [facility] Total proteinOrdered By: Naif Traylor on 11-23-2024 Protein [Mass/Vol] 6.6 g/dL 6.4-8.2 [facility] White blood cell (WBC) count Ordered By: Ariel Traylor on 11-23-2024 WBC (Bld) [#/Vol] 6.0 10*3/uL 4.4-11.0 [facility] CBC-Complete Blood Cnt No Di ffon 11-17-2024 HCT Normal 37-47 [facility] Comment on above: Result Comment: Canc elled via OM: MD Ordered Performed By: #### L 100.0500, L500.4050 ####[facility] [address] [place], [address] HGB Normal 12.0-15.0 [facility] Comment on above: Result Comment: Canc elled via OM: MD Ordered Performed By: #### L 100.0500, L500.4050 ####[facility] [address] [place], [address] MCH Normal 27.0-32.0 [facility] Comment on above: Result Comment: Canc elled via OM: MD Ordered Performed By: #### L 100.0500, L500.4050 ####[facility] [address] [place], [address] MCHC Normal 32-36 [facility] Comment on above: Result Comment: Canc elled via OM: MD Ordered Performed By: #### L 100.0500, L500.4050 ####[facility] [address] [place], [address] MCV Normal 81-99 [facility] Comment on above: Result Comment: Canc elled via OM: MD Ordered Performed By: #### L 100.0500, L500.4050 ####[facility] [address] [place], [address] PLT Normal 150-450 [facility] Comment on above: Result Comment: Canc elled via OM: MD Ordered Performed By: #### L 100.0500, L500.4050 ####[facility] [address] [place], [address] RBC Normal 4.2-5.4 [facility] Comment on above: Result Comment: Canc elled via OM: MD Ordered Performed By: #### L 100.0500, L500.4050 ####[facility] [address] [place], [address] RDW CV Normal 11.6-14.6 [facility] Comment on above: Result Comment: Canc elled via OM: MD Ordered Performed By: #### L 100.0500, L500.4050 ####[facility] [address] [place], [address] RDW SD Normal 35.1-43.9 [facility] Comment on above: Result Comment: Canc elled via OM: MD Ordered Performed By: #### L 100.0500, L500.4050 ####[facility] [address] [place], [address] WBC Normal 4.4-11.0 [facility] Comment on above: Result Comment: Canc elled via OM: MD Ordered Performed By: #### L 100.0500, L500.4050 ####[facility] [address] [place], [address] Comprehensive Metabolic Prof ilon 11-17-2024 ALB Normal 3.2-5.0 [facility] Comment on above: Result Comment: Canc elled via OM: MD Ordered Performed By: #### L 100.0500, L500.4050 ####[facility] [address] [place], [address] ALK P Normal 45-117 [facility] Comment on above: Result Comment: Canc elled via OM: MD Ordered Performed By: #### L 100.0500, L500.4050 ####[facility] [address] [place], [address] ALT Normal 13-56 [facility] Comment on above: Result Comment: Canc elled via OM: MD Ordered Performed By: #### L 100.0500, L500.4050 ####[facility] [address] [place], [address] AST Normal 15-37 [facility] Comment on above: Result Comment: Canc elled via OM: MD Ordered Performed By: #### L 100.0500, L500.4050 ####[facility] [address] [place], [address] BUN Normal 7-18 [facility] Comment on above: Result Comment: Canc elled via OM: MD Ordered Performed By: #### L 100.0500, L500.4050 ####[facility] [address] [place], [address] BUN/CRE Normal 10-20 [facility] Comment on above: Result Comment: Canc elled via OM: MD Ordered Performed By: #### L 100.0500, L500.4050 ####[facility] [address] [place], [address] CA,Total Normal 8.5-10.1 [facility] Comment on above: Result Comment: Canc elled via OM: MD Ordered Performed By: #### L 100.0500, L500.4050 ####[facility] [address] [place], [address] CL Normal 98-107 [facility] Comment on above: Result Comment: Canc elled via OM: MD Ordered Performed By: #### L 100.0500, L500.4050 ####[facility] [address] [place], [address] CO2 Normal 21.0-32.0 [facility] Comment on above: Result Comment: Canc elled via OM: MD Ordered Performed By: #### L 100.0500, L500.4050 ####[facility] [address] [place], [address] CREAT,SERUM Normal 0.55-1.02 [facility] Comment on above: Result Comment: Canc elled via OM: MD Ordered Performed By: #### L 100.0500, L500.4050 ####[facility] [address] [place], [address] EST GFR Normal >60 [facility] Comment on above: Result Comment: Canc elled via OM: MD Ordered Performed By: #### L 100.0500, L500.4050 ####[facility] [address] [place], [address] EST GFR - AA Normal >60 [facility] Comment on above: Result Comment: Canc elled via OM: MD Ordered Performed By: #### L 100.0500, L500.4050 ####[facility] [address] [place], [address] GAP Normal 5-15 [facility] Comment on above: Result Comment: Canc elled via OM: MD Ordered Performed By: #### L 100.0500, L500.4050 ####[facility] [address] [place], [address] GLU Normal 74-106 [facility] Comment on above: Result Comment: Canc elled via OM: MD Ordered Performed By: #### L 100.0500, L500.4050 ####[facility] [address] [place], [address] Potassium Normal 3.5-5.1 [facility] Comment on above: Result Comment: Canc elled via OM: MD Ordered Performed By: #### L 100.0500, L500.4050 ####[facility] [address] [place], [address] T BILI Normal 0.20-1.00 [facility] Comment on above: Result Comment: Canc elled via OM: MD Ordered Performed By: #### L 100.0500, L500.4050 ####[facility] [address] [place], [address] T PROT Normal 6.4-8.2 [facility] Comment on above: Result Comment: Canc elled via OM: MD Ordered Performed By: #### L 100.0500, L500.4050 ####[facility] [address] [place], [address] Comprehensive Metabolic Profil Normal 136-145 [facility] Comment on above: Result Comment: Canc elled via OM: MD Ordered Performed By: #### L 100.0500, L500.4050 ####[facility] [address] [place], [address] Basic Metabolic Profile (BMP )on 11-16-2024 BUN Normal 7-18 [facility] Comment on above: Result Comment: Canc elled via OM: MD Ordered Performed By: #### L 500.2500, L100.0100 ####[facility] [address] [place], [address] BUN/CRE Normal 10-20 [facility] Comment on above: Result Comment: Canc elled via OM: MD Ordered Performed By: #### L 500.2500, L100.0100 ####[facility] [address] [place], [address] CA,Total Normal 8.5-10.1 [facility] Comment on above: Result Comment: Canc elled via OM: MD Ordered Performed By: #### L 500.2500, L100.0100 ####[facility] [address] [place], [address] CL Normal 98-107 [facility] Comment on above: Result Comment: Canc elled via OM: MD Ordered Performed By: #### L 500.2500, L100.0100 ####[facility] [address] [place], [address] CO2 Normal 21.0-32.0 [facility] Comment on above: Result Comment: Canc elled via OM: MD Ordered Performed By: #### L 500.2500, L100.0100 ####[facility] [address] [place], [address] CREAT,SERUM Normal 0.55-1.02 [facility] Comment on above: Result Comment: Canc elled via OM: MD Ordered Performed By: #### L 500.2500, L100.0100 ####[facility] [address] [place], [address] EST GFR Normal >60 [facility] Comment on above: Result Comment: Canc elled via OM: MD Ordered Performed By: #### L 500.2500, L100.0100 ####[facility] [address] [place], [address] EST GFR - AA Normal >60 [facility] Comment on above: Result Comment: Canc elled via OM: MD Ordered Performed By: #### L 500.2500, L100.0100 ####[facility] [address] [place], [address] GAP Normal 5-15 [facility] Comment on above: Result Comment: Canc elled via OM: MD Ordered Performed By: #### L 500.2500, L100.0100 ####[facility] [address] [place], [address] GLU Normal 74-106 [facility] Comment on above: Result Comment: Canc elled via OM: MD Ordered Performed By: #### L 500.2500, L100.0100 ####[facility] [address] [place], [address] Potassium Normal 3.5-5.1 [facility] Comment on above: Result Comment: Canc elled via OM: MD Ordered Performed By: #### L 500.2500, L100.0100 ####[facility] [address] [place], [address] Basic Metabolic Profile (BMP) Normal 136-145 [facility] Comment on above: Result Comment: Canc elled via OM: MD Ordered Performed By: #### L 500.2500, L100.0100 ####[facility] [address] [place], [address] CBC W/Diff, Automatedon - Absolute Neut Normal 2.0-7.7 [facility] Comment on above: Result Comment: Canc elled via OM: MD Ordered Performed By: #### L 500.2500, L100.0100 ####[facility] [address] [place], [address] HCT Normal 37-47 [facility] Comment on above: Result Comment: Canc elled via OM: MD Ordered Performed By: #### L 500.2500, L100.0100 ####[facility] [address] [place], [address] HGB Normal 12.0-15.0 [facility] Comment on above: Result Comment: Canc elled via OM: MD Ordered Performed By: #### L 500.2500, L100.0100 ####[facility] [address] [place], [address] MCH Normal 27.0-32.0 [facility] Comment on above: Result Comment: Canc elled via OM: MD Ordered Performed By: #### L 500.2500, L100.0100 ####[facility] [address] [place], [address] MCHC Normal 32-36 [facility] Comment on above: Result Comment: Canc elled via OM: MD Ordered Performed By: #### L 500.2500, L100.0100 ####[facility] [address] [place], [address] MCV Normal 81-99 [facility] Comment on above: Result Comment: Canc elled via OM: MD Ordered Performed By: #### L 500.2500, L100.0100 ####[facility] [address] [place], [address] NEUT% Normal 47-70 [facility] Comment on above: Result Comment: Canc elled via OM: MD Ordered Performed By: #### L 500.2500, L100.0100 ####[facility] [address] [place], [address] PLT Normal 150-450 [facility] Comment on above: Result Comment: Canc elled via OM: MD Ordered Performed By: #### L 500.2500, L100.0100 ####[facility] [address] [place], [address] RBC Normal 4.2-5.4 [facility] Comment on above: Result Comment: Canc elled via OM: MD Ordered Performed By: #### L 500.2500, L100.0100 ####[facility] [address] [place], [address] RDW CV Normal 11.6-14.6 [facility] Comment on above: Result Comment: Canc elled via OM: MD Ordered Performed By: #### L 500.2500, L100.0100 ####[facility] [address] [place], [address] RDW SD Normal 35.1-43.9 [facility] Comment on above: Result Comment: Canc elled via OM: MD Ordered Performed By: #### L 500.2500, L100.0100 ####[facility] [address] [place], [address] WBC Normal 4.4-11.0 [facility] Comment on above: Result Comment: Can elled via OM: MD Ordered Performed By: #### L 500.2500, L100.0100 ####[facility] [address] [place], [address] Absolute lymphocyte countOrd ered By: Aaron Tony on 11-15-2024 Lymphocytes Auto (Unsp spec) [#/Vol] 0.96 10*3/uL 0.83-4.51 [facility] Automated lymphocyte count a s percentage of total leukocytesOrdered By: Aaron Tony on 11-15-2024 Lymphocytes/100 WBC Auto (Unsp spec) 14.5 % Low 19-41 [facility] Basic Metabolic Profile (BMP )on 11-15-2024 BUN/CRE 20.6 RATIO High 10-20 [facility] Comment on above: Performed By: #### L 500.2500, L100.0100 ####[facility] [address] [place], [address] CA,Total 8.4 mg/dL Low 8.5-10.1 [facility] Comment on above: Performed By: #### L 500.2500, L100.0100 ####[facility] [address] [place], [address] Chloride [Moles/Vol] 116 mmol/L High 98-107 [facility] Comment on above: Performed By: #### L 500.2500, L100.0100 ####[facility] [address] [place], [address] CO2 [Moles/Vol] 23.0 mmol/L Normal 21.0-32.0 [facility] Comment on above: Performed By: #### L 500.2500, L100.0100 ####[facility] [address] [place], [address] Creatinine [Mass/Vol] 0.44 mg/dL Low 0.55-1.02 [facility] Comment on above: Result Comment: The validity of the calculated GFR GFRAA in patients over70 years has not been determined. Clinical correlation isessential. Performed By: #### L 500.2500, L100.0100 ####[facility] [address] [place], [address] ECRCL 69.12 ml/min Normal [facility] Comment on above: Performed By: #### L 500.2500, L100.0100 ####[facility] [address] [place], [address] EST GFR - AA 182 mL/min Normal >60 [facility] Comment on above: Result Comment: Afri can British GFR Calc Performed By: #### L 500.2500, L100.0100 ####[facility] [address] [place], [address] GAP 6 Normal 5-15 [facility] Comment on above: Performed By: #### L 500.2500, L100.0100 ####[facility] [address] [place], [address] GFR/1.73 sq M.predicted among non-blacks MDRD (S/P/Bld) [Vol rate/Area] 150 mL/min/{1.73_m2} Normal >60 [facility] Comment on above: Result Comment: Non- GFR Calc Performed By: #### L 500.2500, L100.0100 ####[facility] [address] [place], [address] Glucose [Mass/Vol] 106 mg/dL Normal 74-106 [facility] Comment on above: Result Comment: Fast ing Glucose result from 100 to 125 mg/dLsuggests IMPAIRED HOMEOSTASIS per A.D.A. criteria. Performed By: #### L 500.2500, L100.0100 ####[facility] [address] [place], [address] Potassium [Moles/Vol] 3.6 mmol/L Normal 3.5-5.1 [facility] Comment on above: Performed By: #### L 500.2500, L100.0100 ####[facility] [address] [place], [address] Sodium [Moles/Vol] 144 mmol/L Normal 136-145 [facility] Comment on above: Performed By: #### L 500.2500, L100.0100 ####[facility] [address] [place], [address] Urea nitrogen [Mass/Vol] 9 mg/dL Normal 7-18 [facility] Comment on above: Performed By: #### L 500.2500, L100.0100 ####[facility] [address] [place], [address] Basophil percentageOrdered B y: Aaron Chavo on 11-15-2024 Basophils/100 WBC (Bld) 0.9 % 0-1 [facility] Body Fluid Culton 11-15-2024 BFC yes rocephin, vanc, maxipime No growth in 5 days. Normal [facility] Comment on above: Performed By: #### M 100.2000, M100.4001, M100.2900, L200.0200 ####[facility] [address] [place], [address] CBC W/Diff, Automatedon - Absolute Lymph 0.96 X10 3/uL Normal 0.83-4.51 [facility] Comment on above: Performed By: #### L 500.2500, L100.0100 ####[facility] [address] [place], [address] Absolute Neut 4.4 X10 3/uL Normal 2.0-7.7 [facility] Comment on above: Performed By: #### L 500.2500, L100.0100 ####[facility] [address] [place], [address] Basophils/100 WBC (Bld) 0.9 % Normal 0-1 [facility] Comment on above: Performed By: #### L 500.2500, L100.0100 ####[facility] [address] [place], [address] Eosinophils/100 WBC (Bld) 5.6 % High 0-5 [facility] Comment on above: Performed By: #### L 500.2500, L100.0100 ####[facility] [address] [place], [address] Erythrocyte distribution width (RBC) [Ratio] 14.5 % Normal 11.6-14.6 [facility] Comment on above: Performed By: #### L 500.2500, L100.0100 ####[facility] [address] [place], [address] Hematocrit (Bld) [Volume fraction] 32.1 % Low 37-47 [facility] Comment on above: Performed By: #### L 500.2500, L100.0100 ####[facility] [address] [place], [address] Hemoglobin (Bld) [Mass/Vol] 10.3 g/dL Low 12.0-15.0 [facility] Comment on above: Performed By: #### L 500.2500, L100.0100 ####[facility] [address] [place], [address] IG% 1.700 High 0.0-0.9 [facility] Comment on above: Result Comment: IG% - Immature Granulocytes (promyelocytes, myelocytes andmetamyelocytes) > 1% indicates that a LEFT SHIFT is Present. Performed By: #### L 500.2500, L100.0100 ####[facility] [address] [place], [address] Lymphocytes/100 WBC (Bld) 14.5 % Low 19-41 [facility] Comment on above: Performed By: #### L 500.2500, L100.0100 ####[facility] [address] [place], [address] MCH (RBC) [Entitic mass] 29.5 pg Normal 27.0-32.0 [facility] Comment on above: Performed By: #### L 500.2500, L100.0100 ####[facility] [address] [place], [address] MCHC (RBC) [Mass/Vol] 32.1 g/dL Normal 32-36 [facility] Comment on above: Performed By: #### L 500.2500, L100.0100 ####[facility] [address] [place], [address] MCV (RBC) [Entitic vol] 92.0 fL Normal 81-99 [facility] Comment on above: Performed By: #### L 500.2500, L100.0100 ####[facility] [address] [place], [address] Monocytes/100 WBC (Bld) 11.3 % High 0-10 [facility] Comment on above: Performed By: #### L 500.2500, L100.0100 ####[facility] [address] [place], [address] Neutrophils/100 WBC (Bld) 66.0 % Normal 47-70 [facility] Comment on above: Performed By: #### L 500.2500, L100.0100 ####[facility] [address] [place], [address] Nucleated RBC (Bld) [#/Vol] 0 10*3/uL Normal 0-5 [facility] Comment on above: Performed By: #### L 500.2500, L100.0100 ####[facility] [address] [place], [address] Platelet mean volume (Bld) [Entitic vol] 9.6 fL Normal 6.2-12.0 [facility] Comment on above: Performed By: #### L 500.2500, L100.0100 ####[facility] [address] [place], [address] Platelets (Bld) [#/Vol] 211 10*3/uL Normal 150-450 [facility] Comment on above: Performed By: #### L 500.2500, L100.0100 ####[facility] [address] [place], [address] RBC (Bld) [#/Vol] 3.49 10*6/uL Low 4.2-5.4 [facility] Comment on above: Performed By: #### L 500.2500, L100.0100 ####[facility] [address] [place], [address] RDW SD 47.9 fl High 35.1-43.9 [facility] Comment on above: Performed By: #### L 500.2500, L100.0100 ####[facility] [address] [place], [address] WBC (Bld) [#/Vol] 6.6 10*3/uL Normal 4.4-11.0 [facility] Comment on above: Performed By: #### L 500.2500, L100.0100 ####[facility] [address] [place], [address] Carbon dioxide measurementOr dered By: Aaron Tony on 11-15-2024 CO2 [Moles/Vol] 23.0 mmol/L 21.0-32.0 [facility] [facility] Chloride measurementOrdered By: Aaron Tony on 11-15-2024 Chloride [Moles/Vol] 116 mmol/L High 98-107 [facility] Culture, Anaerobic Any Sourc grupo 11-15-2024 CUAN yes rocephin, vanc, maxipime No growth in 5 days. [facility] Comment on above: Performed By: #### M 100.2000, M100.4001, M100.2900, L200.0200 ####[facility] [address] [place], [address] Culture, Blood (WB)on 2024 CUB Blood cultures x2, f rom two different sites No growth in 5 days. [facility] Comment on above: Performed By: #### L 300.3900, L100.0100, L503.6005, M200.1000, L300.4310 ####[facility] [address] [place], [address] Culture, Fungus 8482on 11-15 CUF Normal [facility] Comment on above: Performed By: #### M 600.2200, M100.4001, M600.2000, M100.2000, M100.3000 ####[facility] [address] [place], [address] CUF [facility] Comment on above: Performed By: #### M 600.2000, M100.2000, M100.3000, M600.2200, M100.4001 ####[facility] [address] [place], [address] CUF [facility] Comment on above: Performed By: #### M 100.3000, M100.2000, M600.2200, M100.4001, M600.2000 ####[facility] [address] [place], [address] Discharge Instructionon 11-05 Discharge Instruction Normal [facility] Eosinophil percentageOrdered By: Aaron Tony on 11-15-2024 Eosinophils/100 WBC (Bld) 5.6 % High 0-5 [facility] Erythrocyte distribution wid th ratioOrdered By: Aaron Tony on 11-15-2024 Erythrocyte distribution width (RBC) [Ratio] 14.5 % 11.6-14.6 [facility] Erythrocyte distribution wid th standard deviationOrdered By: Aaron Tony on 11-15-2024 Erythrocyte distribution width (RBC) [Ratio] 47.9 fl High 35.1-43.9 [facility] Fungus Stain 8136on 11-15-19 25 FUNST Normal [facility] Comment on above: Performed By: #### M 600.2200, M100.4001, M600.2000, M100.2000, M100.3000 ####[facility] [address] [place], [place], [id number] [facility] Comment on above: Performed By: #### M 600.2000, M100.2000, M100.3000, M600.2200, M100.4001 ####[facility] [address] [place], [place], [id number] [facility] Comment on above: Performed By: #### M 100.3000, M100.2000, M600.2200, M100.4001, M600.2000 ####[facility] [address] [place], [place], [id number] Glomerular filtration rate ( GFR) estimationOrdered By: Aaron Tony on 11-15-2024 GFR/1.73 sq M.predicted among non-blacks MDRD (S/P/Bld) [Vol rate/Area] 150 mL/min/{1.73_m2} >60 [facility] Glucose measurementOrdered B y: Aaron Tony on 11-15-2024 Glucose [Mass/Vol] 106 mg/dL 74-106 [facility] Hematocrit Auto (Bld) [Volum e fraction]Ordered By: Aaron Tony on 11-15-2024 Hematocrit (Bld) [Volume fraction] 32.1 % Low 37-47 [facility] Hemoglobin measurementOrdere d By: Aaron Tony on 11-15-2024 Hemoglobin (Bld) [Mass/Vol] 10.3 g/dL Low 12.0-15.0 [facility] Immature granulocytes/100 WB C Auto (Bld)Ordered By: Aaron Tony on 11-15-2024 Immature granulocytes/100 WBC (Bld) 1.700 % High 0.0-0.9 [facility] MCV (mean corpuscular volume ) determinationOrdered By: Aaron Tony on 11-15-2024 MCV (RBC) [Entitic vol] 92.0 fL 81-99 [facility] Mean corpuscular hemoglobin (MCH) determinationOrdered By: Aaron Tony on 11-15-2024 MCH (RBC) [Entitic mass] 29.5 pg 27.0-32.0 [facility] Monocyte percentageOrdered B y: Aaron Tony on 11-15-2024 Monocytes/100 WBC (Bld) 11.3 % High 0-10 [facility] Neutrophil percentageOrdered By: Aaron Tony on 11-15-2024 Neutrophils/100 WBC (Bld) 66.0 % 47-70 [facility] Platelet countOrdered By: Terry Tony on 11-15-2024 Platelets (Bld) [#/Vol] 211 10*3/uL 150-450 [facility] Potassium measurementOrdered By: Aaron Tony on 11-15-2024 Potassium [Moles/Vol] 3.6 mmol/L 3.5-5.1 [facility] RBC Auto (Bld) [#/Vol]Ordere d By: Aaron Tony on 11-15-2024 RBC (Bld) [#/Vol] 3.49 10*6/uL Low 4.2-5.4 [email or web address] Serum or plasma calcium rosemary urement (mass/volume)Ordered By: Aaron Tony on 11-15-2024 Calcium [Mass/Vol] 8.4 mg/dL Low 8.5-10.1 [facility] Serum or plasma creatinine m easurement (mass/volume)Ordered By: Aaron Tony on 11-15-2024 Creatinine [Mass/Vol] 0.44 mg/dL Low 0.55-1.02 [facility] Serum or plasma urea nitroge n measurement (mass/volume)Ordered By: Aaron Tony on 11-15-2024 Urea nitrogen [Mass/Vol] 9 mg/dL 7-18 [facility] Sodium levelOrdered By: Td Tony on 11-15-2024 Sodium [Moles/Vol] 144 mmol/L 136-145 [facility] White blood cell (WBC) count Ordered By: Aaron Tony on 11-15-2024 WBC (Bld) [#/Vol] 6.6 10*3/uL 4.4-11.0 [facility] Basic Metabolic Profile (BMP )on 11-14-2024 BUN/CRE 20.8 RATIO High 10-20 [facility] Comment on above: Performed By: #### L 501.5200, L100.0100, L500.2500, L501.2300 ####[facility] [address] [place], [address] CA,Total 8.6 mg/dL Normal 8.5-10.1 [facility] Comment on above: Performed By: #### L 501.5200, L100.0100, L500.2500, L501.2300 ####[facility] [address] [place], [address] Chloride [Moles/Vol] 115 mmol/L High 98-107 [facility] Comment on above: Performed By: #### L 501.5200, L100.0100, L500.2500, L501.2300 ####[facility] [address] [place], [address] CO2 [Moles/Vol] 22.0 mmol/L Normal 21.0-32.0 [facility] Comment on above: Performed By: #### L 501.5200, L100.0100, L500.2500, L501.2300 ####[facility] [address] [place], [address] Creatinine [Mass/Vol] 0.43 mg/dL Low 0.55-1.02 [facility] Comment on above: Result Comment: The validity of the calculated GFR GFRAA in patients over70 years has not been determined. Clinical correlation isessential. Performed By: #### L 501.5200, L100.0100, L500.2500, L501.2300 ####[facility] [address] [place], [address] ECRCL 68.96 ml/min Normal [facility] Comment on above: Performed By: #### L 501.5200, L100.0100, L500.2500, L501.2300 ####[facility] [address] [place], [address] EST GFR - AA 184 mL/min Normal >60 [facility] Comment on above: Result Comment: Afri can [place] GFR Calc Performed By: #### L 501.5200, L100.0100, L500.2500, L501.2300 ####[facility] [address] [place], [address] GAP 6 Normal 5-15 [facility] Comment on above: Performed By: #### L 501.5200, L100.0100, L500.2500, L501.2300 ####[facility] [address] [place], [address] GFR/1.73 sq M.predicted among non-blacks MDRD (S/P/Bld) [Vol rate/Area] 152 mL/min/{1.73_m2} Normal >60 [facility] Comment on above: Result Comment: Non- GFR Calc Performed By: #### L 501.5200, L100.0100, L500.2500, L501.2300 ####[facility] [address] [place], [address] Glucose [Mass/Vol] 105 mg/dL Normal 74-106 [facility] Comment on above: Result Comment: Fast ing Glucose result from 100 to 125 mg/dLsuggests IMPAIRED HOMEOSTASIS per A.D.A. criteria. Performed By: #### L 501.5200, L100.0100, L500.2500, L501.2300 ####[facility] [address] [place], [address] Potassium [Moles/Vol] 3.4 mmol/L Low 3.5-5.1 [facility] Comment on above: Performed By: #### L 501.5200, L100.0100, L500.2500, L501.2300 ####[facility] [address] [place], [address] Sodium [Moles/Vol] 143 mmol/L Normal 136-145 [facility] Comment on above: Performed By: #### L 501.5200, L100.0100, L500.2500, L501.2300 ####[facility] [address] [place], [address] Urea nitrogen [Mass/Vol] 9 mg/dL Normal 7-18 [facility] Comment on above: Performed By: #### L 501.5200, L100.0100, L500.2500, L501.2300 ####[facility] [address] [place], [address] CBC W/Diff, Automatedon 11-05 0-2024 Absolute Lymph 0.84 X10 3/uL Normal 0.83-4.51 [facility] Comment on above: Performed By: #### L 501.5200, L100.0100, L500.2500, L501.2300 ####[facility] [address] [place], [address] Absolute Neut 4.1 X10 3/uL Normal 2.0-7.7 [facility] Comment on above: Performed By: #### L 501.5200, L100.0100, L500.2500, L501.2300 ####[facility] [address] [place], [address] Basophils/100 WBC (Bld) 0.7 % Normal 0-1 [facility] Comment on above: Performed By: #### L 501.5200, L100.0100, L500.2500, L501.2300 ####[facility] [address] [place], [address] Eosinophils/100 WBC (Bld) 4.7 % Normal 0-5 [facility] Comment on above: Performed By: #### L 501.5200, L100.0100, L500.2500, L501.2300 ####[facility] [address] [place], [address] Erythrocyte distribution width (RBC) [Ratio] 14.4 % Normal 11.6-14.6 [facility] Comment on above: Performed By: #### L 501.5200, L100.0100, L500.2500, L501.2300 ####[facility] [address] [place], [address] Hematocrit (Bld) [Volume fraction] 34.0 % Low 37-47 [facility] Comment on above: Performed By: #### L 501.5200, L100.0100, L500.2500, L501.2300 ####[facility] [address] [place], [address] Hemoglobin (Bld) [Mass/Vol] 10.8 g/dL Low 12.0-15.0 [facility] Comment on above: Performed By: #### L 501.5200, L100.0100, L500.2500, L501.2300 ####[facility] [address] [place], [address] IG% 1.300 High 0.0-0.9 [facility] Comment on above: Result Comment: IG% - Immature Granulocytes (promyelocytes, myelocytes andmetamyelocytes) > 1% indicates that a LEFT SHIFT is Present. Performed By: #### L 501.5200, L100.0100, L500.2500, L501.2300 ####[facility] [address] [place], [address] Lymphocytes/100 WBC (Bld) 14.1 % Low 19-41 [facility] Comment on above: Performed By: #### L 501.5200, L100.0100, L500.2500, L501.2300 ####[facility] [address] [place], [address] MCH (RBC) [Entitic mass] 29.7 pg Normal 27.0-32.0 [facility] Comment on above: Performed By: #### L 501.5200, L100.0100, L500.2500, L501.2300 ####[facility] [address] [place], [address] MCHC (RBC) [Mass/Vol] 31.8 g/dL Low 32-36 [facility] Comment on above: Performed By: #### L 501.5200, L100.0100, L500.2500, L501.2300 ####[facility] [address] [place], [address] MCV (RBC) [Entitic vol] 93.4 fL Normal 81-99 [facility] Comment on above: Performed By: #### L 501.5200, L100.0100, L500.2500, L501.2300 ####[facility] [address] [place], [address] Monocytes/100 WBC (Bld) 10.8 % High 0-10 [facility] Comment on above: Performed By: #### L 501.5200, L100.0100, L500.2500, L501.2300 ####[facility] [address] [place], [address] Neutrophils/100 WBC (Bld) 68.4 % Normal 47-70 [facility] Comment on above: Performed By: #### L 501.5200, L100.0100, L500.2500, L501.2300 ####[facility] [address] [place], [address] Nucleated RBC (Bld) [#/Vol] 0 10*3/uL Normal 0-5 [facility] Comment on above: Performed By: #### L 501.5200, L100.0100, L500.2500, L501.2300 ####[facility] [address] [place], [address] Platelet mean volume (Bld) [Entitic vol] 10.1 fL Normal 6.2-12.0 [facility] Comment on above: Performed By: #### L 501.5200, L100.0100, L500.2500, L501.2300 ####[facility] [address] [place], [address] Platelets (Bld) [#/Vol] 199 10*3/uL Normal 150-450 [facility] Comment on above: Performed By: #### L 501.5200, L100.0100, L500.2500, L501.2300 ####[facility] [address] [place], [address] RBC (Bld) [#/Vol] 3.64 10*6/uL Low 4.2-5.4 [facility] Comment on above: Performed By: #### L 501.5200, L100.0100, L500.2500, L501.2300 ####[facility] [address] [place], [address] RDW SD 48.6 fl High 35.1-43.9 [facility] Comment on above: Performed By: #### L 501.5200, L100.0100, L500.2500, L501.2300 ####[facility] [address] [place], [address] WBC (Bld) [#/Vol] 6.0 10*3/uL Normal 4.4-11.0 [facility] Comment on above: Performed By: #### L 501.5200, L100.0100, L500.2500, L501.2300 ####[facility] [address] [place], [address] Magnesiumon 11-14-2024 Magnesium [Mass/Vol] 2.1 mg/dL Normal 1.6-2.6 [facility] Comment on above: Performed By: #### L 501.5200, L100.0100, L500.2500, L501.2300 ####[facility] [address] [place], [address] Magnesium measurementOrdered By: Aaron Tony on 11-14-2024 Magnesium [Mass/Vol] 2.1 mg/dL 1.6-2.6 [facility] Phosphoruson 11-14-2024 Phosphate [Mass/Vol] 3.9 mg/dL Normal 2.5-4.9 [facility] Comment on above: Performed By: #### L 501.5200, L100.0100, L500.2500, L501.2300 ####[facility] [address] [place], [address] Serum or plasma trough vanco mycin levelOrdered By: Shadia Nance on 11-14-2024 Vancomycin trough [Mass/Vol] 19.5 ug/mL High 5.0-15.0 [facility] Vancomycin, Trough Levelon 0 11-14-2024 VANCO, TROUGH 19.5 ug/mL High 5.0-15.0 [facility] Comment on above: Order Comment: Comme nts: Trough to be drawn 30 mins prior to scheduled [id number] Result Comment: VANC OMYCIN STANDARED DRUG THERAPY TROUGH LEVEL: 5.0 - 15.0 mg/LVANCOMYCIN HIGH INTENSITY THERAPY TROUGH LEVEL: 15.0 - 20.0 mg/LHigh Intensity therapy recommended for serious lifethreatening infections include:- Rqpycexfty-Xpgznbqcrgmc-Enfrtcrps (Ventilator/Healtcare Associated)-SepsisPLEASE CONTACT PHARMACY SERVICES (#0057) FOR INTERPRETATIONOF RESULTS. Performed By: #### L 501.8820 ####[facility] [address] [place], [address] Basic Metabolic Profile (BMP )on 11-13-2024 BUN/CRE 20.5 RATIO High 10-20 [facility] Comment on above: Performed By: #### L 500.2500, L100.0100 ####[facility] [address] [place], [address] CA,Total 8.2 mg/dL Low 8.5-10.1 [facility] Comment on above: Performed By: #### L 500.2500, L100.0100 ####[facility] [address] [place], [address] Chloride [Moles/Vol] 118 mmol/L High 98-107 [facility] Comment on above: Performed By: #### L 500.2500, L100.0100 ####[facility] [address] [place], [address] CO2 [Moles/Vol] 20.0 mmol/L Low 21.0-32.0 [facility] Comment on above: Performed By: #### L 500.2500, L100.0100 ####[facility] [address] [place], [address] Creatinine [Mass/Vol] 0.44 mg/dL Low 0.55-1.02 [facility] Comment on above: Result Comment: The validity of the calculated GFR GFRAA in patients over70 years has not been determined. Clinical correlation isessential. Performed By: #### L 500.2500, L100.0100 ####[facility] [address] [place], [address] ECRCL 68.40 ml/min Normal [facility] Comment on above: Performed By: #### L 500.2500, L100.0100 ####[facility] [address] [place], [address] EST GFR - AA 180 mL/min Normal >60 [facility] Comment on above: Result Comment: Afri can British GFR Calc Performed By: #### L 500.2500, L100.0100 ####[facility] [address] [place], [address] GAP 8 Normal 5-15 [facility] Comment on above: Performed By: #### L 500.2500, L100.0100 ####[facility] [address] [place], [address] GFR/1.73 sq M.predicted among non-blacks MDRD (S/P/Bld) [Vol rate/Area] 149 mL/min/{1.73_m2} Normal >60 [facility] Comment on above: Result Comment: Non- GFR Calc Performed By: #### L 500.2500, L100.0100 ####[facility] [address] [place], [address] Glucose [Mass/Vol] 104 mg/dL Normal 74-106 [facility] Comment on above: Result Comment: Fast ing Glucose result from 100 to 125 mg/dLsuggests IMPAIRED HOMEOSTASIS per A.D.A. criteria. Performed By: #### L 500.2500, L100.0100 ####[facility] [address] [place], [address] Potassium [Moles/Vol] 3.8 mmol/L Normal 3.5-5.1 [facility] Comment on above: Performed By: #### L 500.2500, L100.0100 ####[facility] [address] [place], [address] Sodium [Moles/Vol] 146 mmol/L High 136-145 [facility] Comment on above: Performed By: #### L 500.2500, L100.0100 ####[facility] [address] [place], [address] Urea nitrogen [Mass/Vol] 9 mg/dL Normal 7-18 [facility] Comment on above: Performed By: #### L 500.2500, L100.0100 ####[facility] [address] [place], [address] CBC W/Diff, Automatedon 02-0 9-2024 Absolute Lymph 0.63 X10 3/uL Low 0.83-4.51 [facility] Comment on above: Performed By: #### L 500.2500, L100.0100 ####[facility] [address] [place], [address] Absolute Neut 3.8 X10 3/uL Normal 2.0-7.7 [facility] Comment on above: Performed By: #### L 500.2500, L100.0100 ####[facility] [address] [place], [address] Basophils/100 WBC (Bld) 0.4 % Normal 0-1 [facility] Comment on above: Performed By: #### L 500.2500, L100.0100 ####[facility] [address] [place], [address] Eosinophils/100 WBC (Bld) 5.2 % High 0-5 [facility] Comment on above: Performed By: #### L 500.2500, L100.0100 ####[facility] [address] [place], [address] Erythrocyte distribution width (RBC) [Ratio] 14.1 % Normal 11.6-14.6 [facility] Comment on above: Performed By: #### L 500.2500, L100.0100 ####[facility] [address] [place], [address] Hematocrit (Bld) [Volume fraction] 33.0 % Low 37-47 [facility] Comment on above: Performed By: #### L 500.2500, L100.0100 ####[facility] [address] [place], [address] Hemoglobin (Bld) [Mass/Vol] 9.9 g/dL Low 12.0-15.0 [facility] Comment on above: Performed By: #### L 500.2500, L100.0100 ####[facility] [address] [place], [address] IG% 0.800 Normal 0.0-0.9 [facility] Comment on above: Result Comment: IG% - Immature Granulocytes (promyelocytes, myelocytes andmetamyelocytes) > 1% indicates that a LEFT SHIFT is Present. Performed By: #### L 500.2500, L100.0100 ####[facility] [address] [place], [address] Lymphocytes/100 WBC (Bld) 12.1 % Low 19-41 [facility] Comment on above: Performed By: #### L 500.2500, L100.0100 ####[facility] [address] [place], [address] MCH (RBC) [Entitic mass] 28.9 pg Normal 27.0-32.0 [facility] Comment on above: Performed By: #### L 500.2500, L100.0100 ####[facility] [address] [place], [address] MCHC (RBC) [Mass/Vol] 30.0 g/dL Low 32-36 [facility] Comment on above: Performed By: #### L 500.2500, L100.0100 ####[facility] [address] [place], [address] MCV (RBC) [Entitic vol] 96.2 fL Normal 81-99 [facility] Comment on above: Performed By: #### L 500.2500, L100.0100 ####[facility] [address] [place], [address] Monocytes/100 WBC (Bld) 8.7 % Normal 0-10 [facility] Comment on above: Performed By: #### L 500.2500, L100.0100 ####[facility] [address] [place], [address] Neutrophils/100 WBC (Bld) 72.8 % High 47-70 [facility] Comment on above: Performed By: #### L 500.2500, L100.0100 ####[facility] [address] [place], [address] Nucleated RBC (Bld) [#/Vol] 0 10*3/uL Normal 0-5 [facility] Comment on above: Performed By: #### L 500.2500, L100.0100 ####[facility] [address] [place], [address] Platelet mean volume (Bld) [Entitic vol] 10.0 fL Normal 6.2-12.0 [facility] Comment on above: Performed By: #### L 500.2500, L100.0100 ####[facility] [address] [place], [address] Platelets (Bld) [#/Vol] 144 10*3/uL Low 150-450 [facility] Comment on above: Performed By: #### L 500.2500, L100.0100 ####[facility] [address] [place], [address] RBC (Bld) [#/Vol] 3.43 10*6/uL Low 4.2-5.4 [facility] Comment on above: Performed By: #### L 500.2500, L100.0100 ####[facility] [address] [place], [address] RDW SD 49.5 fl High 35.1-43.9 [facility] Comment on above: Performed By: #### L 500.2500, L100.0100 ####[facility] [address] [place], [address] WBC (Bld) [#/Vol] 5.2 10*3/uL Normal 4.4-11.0 [facility] Comment on above: Performed By: #### L 500.2500, L100.0100 ####[facility] [address] [place], [address] Chest 1 View (Portable)on Chest 1 View (Portable) Normal [facility] M100.019on 11-13-2024 M100.019 Normal [facility] Comment on above: Performed By: #### M 100.638, M100.019 ####[facility] [address] [place], [address] RESPIRATORY PANEL MOLECULARo n 11-13-2024 RP PANEL Normal [facility] Comment on above: Performed By: #### M 100.638, M100.019 ####[facility] [address] [place], [address] Respiratory pathogens detect ion panel by molecular detection methodOrdered By: Aaron Tony on 11-13-2024 Respiratory pathogens DNA and RNA panel LIDIA+probe (Resp) [facility] [id number] By: Aaron Tony on 11-13-2024 SARS-CoV-2 (COVID-19) RNA LIDIA+probe Ql (Unsp spec) SARS-CoV-2 (COVID 19 PCR) Abnormal [facility] Basic Metabolic Profile (BMP )on 11-12-2024 BUN/CRE 26.4 RATIO High 10-20 [facility] Comment on above: Performed By: #### L 100.0100, L500.2500 ####[facility] [address] [place], [address] CA,Total 8.2 mg/dL Low 8.5-10.1 [facility] Comment on above: Performed By: #### L 100.0100, L500.2500 ####[facility] [address] [place], [address] Chloride [Moles/Vol] 114 mmol/L High 98-107 [facility] Comment on above: Performed By: #### L 100.0100, L500.2500 ####[facility] [address] [place], [address] CO2 [Moles/Vol] 24.0 mmol/L Normal 21.0-32.0 [facility] Comment on above: Performed By: #### L 100.0100, L500.2500 ####[facility] [address] [place], [address] Creatinine [Mass/Vol] 0.46 mg/dL Low 0.55-1.02 [facility] Comment on above: Result Comment: The validity of the calculated GFR GFRAA in patients over70 years has not been determined. Clinical correlation isessential. Performed By: #### L 100.0100, L500.2500 ####[facility] [address] [place], [address] ECRCL 68.40 ml/min Normal [facility] Comment on above: Performed By: #### L 100.0100, L500.2500 ####[facility] [address] [place], [address] EST GFR - AA 174 mL/min Normal >60 [facility] Comment on above: Result Comment: Afri can British GFR Calc Performed By: #### L 100.0100, L500.2500 ####[facility] [address] [place], [address] GAP 6 Normal 5-15 [facility] Comment on above: Performed By: #### L 100.0100, L500.2500 ####[facility] [address] [place], [address] GFR/1.73 sq M.predicted among non-blacks MDRD (S/P/Bld) [Vol rate/Area] 143 mL/min/{1.73_m2} Normal >60 [facility] Comment on above: Result Comment: Non- GFR Calc Performed By: #### L 100.0100, L500.2500 ####[facility] [address] [place], [address] Glucose [Mass/Vol] 96 mg/dL Normal 74-106 [facility] Comment on above: Performed By: #### L 100.0100, L500.2500 ####[facility] [address] [place], [address] Potassium [Moles/Vol] 3.7 mmol/L Normal 3.5-5.1 [facility] Comment on above: Performed By: #### L 100.0100, L500.2500 ####[facility] [address] [place], [address] Sodium [Moles/Vol] 144 mmol/L Normal 136-145 [facility] Comment on above: Performed By: #### L 100.0100, L500.2500 ####[facility] [address] [place], [address] Urea nitrogen [Mass/Vol] 12 mg/dL Normal 7-18 [facility] Comment on above: Performed By: #### L 100.0100, L500.2500 ####[facility] [address] [place], [address] CBC W/Diff, Automatedon 02-0 8-2025 Absolute Lymph 0.73 X10 3/uL Low 0.83-4.51 [facility] Comment on above: Performed By: #### L 100.0100, L500.2500 ####[facility] [address] [place], [address] Absolute Neut 3.2 X10 3/uL Normal 2.0-7.7 [facility] Comment on above: Performed By: #### L 100.0100, L500.2500 ####[facility] [address] [place], [address] Basophils/100 WBC (Bld) 0.2 % Normal 0-1 [facility] Comment on above: Performed By: #### L 100.0100, L500.2500 ####[facility] [address] [place], [address] Eosinophils/100 WBC (Bld) 6.0 % High 0-5 [facility] Comment on above: Performed By: #### L 100.0100, L500.2500 ####[facility] [address] [place], [address] Erythrocyte distribution width (RBC) [Ratio] 13.9 % Normal 11.6-14.6 [facility] Comment on above: Performed By: #### L 100.0100, L500.2500 ####[facility] [address] [place], [address] Hematocrit (Bld) [Volume fraction] 31.8 % Low 37-47 [facility] Comment on above: Performed By: #### L 100.0100, L500.2500 ####[facility] [address] [place], [address] Hemoglobin (Bld) [Mass/Vol] 9.8 g/dL Low 12.0-15.0 [facility] Comment on above: Performed By: #### L 100.0100, L500.2500 ####[facility] [address] [place], [address] IG% 0.400 Normal 0.0-0.9 [facility] Comment on above: Result Comment: IG% - Immature Granulocytes (promyelocytes, myelocytes andmetamyelocytes) > 1% indicates that a LEFT SHIFT is Present. Performed By: #### L 100.0100, L500.2500 ####[facility] [address] [place], [address] Lymphocytes/100 WBC (Bld) 15.6 % Low 19-41 [facility] Comment on above: Performed By: #### L 100.0100, L500.2500 ####[facility] [address] [place], [address] MCH (RBC) [Entitic mass] 28.7 pg Normal 27.0-32.0 [facility] Comment on above: Performed By: #### L 100.0100, L500.2500 ####[facility] [address] [place], [address] MCHC (RBC) [Mass/Vol] 30.8 g/dL Low 32-36 [facility] Comment on above: Performed By: #### L 100.0100, L500.2500 ####[facility] [address] [place], [address] MCV (RBC) [Entitic vol] 93.0 fL Normal 81-99 [facility] Comment on above: Performed By: #### L 100.0100, L500.2500 ####[facility] [address] [place], [address] Monocytes/100 WBC (Bld) 9.4 % Normal 0-10 [facility] Comment on above: Performed By: #### L 100.0100, L500.2500 ####[facility] [address] [place], [address] Neutrophils/100 WBC (Bld) 68.4 % Normal 47-70 [facility] Comment on above: Performed By: #### L 100.0100, L500.2500 ####[facility] [address] [place], [address] Nucleated RBC (Bld) [#/Vol] 0 10*3/uL Normal 0-5 [facility] Comment on above: Performed By: #### L 100.0100, L500.2500 ####[facility] [address] [place], [address] Platelet mean volume (Bld) [Entitic vol] 10.0 fL Normal 6.2-12.0 [facility] Comment on above: Performed By: #### L 100.0100, L500.2500 ####[facility] [address] [place], [address] Platelets (Bld) [#/Vol] 155 10*3/uL Normal 150-450 [facility] Comment on above: Performed By: #### L 100.0100, L500.2500 ####[facility] [address] [place], [address] RBC (Bld) [#/Vol] 3.42 10*6/uL Low 4.2-5.4 [facility] Comment on above: Performed By: #### L 100.0100, L500.2500 ####[facility] [address] [place], [address] RDW SD 48.0 fl High 35.1-43.9 [facility] Comment on above: Performed By: #### L 100.0100, L500.2500 ####[facility] [address] [place], [address] WBC (Bld) [#/Vol] 4.7 10*3/uL Normal 4.4-11.0 [facility] Comment on above: Performed By: #### L 100.0100, L500.2500 ####[facility] [address] [place], [address] Vancomycin, Trough Levelon 0 11-12-2024 VANCO, TROUGH 17.9 ug/mL High 5.0-15.0 [facility] Comment on above: Order Comment: 2200 Result Comment: VANC OMYCIN STANDARED DRUG THERAPY TROUGH LEVEL: 5.0 - 15.0 mg/LVANCOMYCIN HIGH INTENSITY THERAPY TROUGH LEVEL: 15.0 - 20.0 mg/LHigh Intensity therapy recommended for serious lifethreatening infections include:- Njghivppmv-Vcsuctpxxayw-Yrdbnozwr (Ventilator/Healtcare Associated)-SepsisPLEASE CONTACT PHARMACY SERVICES (#5097) FOR INTERPRETATIONOF RESULTS. Performed By: #### L 501.8820 ####[facility] [address] [place], [address] Wound Cultureon 11-12-2024 WC Normal [facility] Comment on above: Performed By: #### M 100.2000, M8200.1075, M100.3000 ####[facility] [address] [place], [address] Activated partial thrombopla stin time (aPTT) in platelet poor plasma by coagulation aOrdered By: Shadia Nance on 11-11-2024 aPTT Coag (PPP) [Time] 75.2 s High 24.1-36.2 [facility] Basic Metabolic Profile (BMP )on 11-11-2024 BUN/CRE 31.6 RATIO High 10-20 [facility] Comment on above: Performed By: #### L 501.5200, L501.2300, L500.2500, L100.0100 ####[facility] [address] [place], [address] CA,Total 8.4 mg/dL Low 8.5-10.1 [facility] Comment on above: Performed By: #### L 501.5200, L501.2300, L500.2500, L100.0100 ####[facility] [address] [place], [address] Chloride [Moles/Vol] 109 mmol/L High 98-107 [facility] Comment on above: Performed By: #### L 501.5200, L501.2300, L500.2500, L100.0100 ####[facility] [address] [place], [address] CO2 [Moles/Vol] 22.0 mmol/L Normal 21.0-32.0 [facility] Comment on above: Performed By: #### L 501.5200, L501.2300, L500.2500, L100.0100 ####[facility] [address] [place], [address] Creatinine [Mass/Vol] 0.48 mg/dL Low 0.55-1.02 [facility] Comment on above: Result Comment: The validity of the calculated GFR GFRAA in patients over70 years has not been determined. Clinical correlation isessential. Performed By: #### L 501.5200, L501.2300, L500.2500, L100.0100 ####[facility] [address] [place], [address] ECRCL 67.83 ml/min Normal [facility] Comment on above: Performed By: #### L 501.5200, L501.2300, L500.2500, L100.0100 ####[facility] [address] [place], [address] EST GFR - AA 165 mL/min Normal >60 [facility] Comment on above: Result Comment: Afri can [place] GFR Calc Performed By: #### L 501.5200, L501.2300, L500.2500, L100.0100 ####[facility] [address] [place], [address] GAP 6 Normal 5-15 [facility] Comment on above: Performed By: #### L 501.5200, L501.2300, L500.2500, L100.0100 ####[facility] [address] [place], [address] GFR/1.73 sq M.predicted among non-blacks MDRD (S/P/Bld) [Vol rate/Area] 137 mL/min/{1.73_m2} Normal >60 [facility] Comment on above: Result Comment: Non- GFR Calc Performed By: #### L 501.5200, L501.2300, L500.2500, L100.0100 ####[facility] [address] [place], [address] Glucose [Mass/Vol] 126 mg/dL High 74-106 [facility] Comment on above: Result Comment: Fast ing Glucose result greater than or equal to 126 mg/dLsuggests DIABETES MELLITUS per A.D.A. criteria. Performed By: #### L 501.5200, L501.2300, L500.2500, L100.0100 ####[facility] [address] [place], [address] Potassium [Moles/Vol] 3.6 mmol/L Normal 3.5-5.1 [facility] Comment on above: Performed By: #### L 501.5200, L501.2300, L500.2500, L100.0100 ####[facility] [address] [place], [address] Sodium [Moles/Vol] 137 mmol/L Normal 136-145 [facility] Comment on above: Performed By: #### L 501.5200, L501.2300, L500.2500, L100.0100 ####[facility] [address] [place], [address] Urea nitrogen [Mass/Vol] 15 mg/dL Normal 7-18 [facility] Comment on above: Performed By: #### L 501.5200, L501.2300, L500.2500, L100.0100 ####[facility] [address] [place], [address] CBC W/Diff, Automatedon 02-0 7-2024 Absolute Lymph 0.63 X10 3/uL Low 0.83-4.51 [facility] Comment on above: Performed By: #### L 501.5200, L501.2300, L500.2500, L100.0100 ####[facility] [address] [place], [address] Absolute Neut 5.3 X10 3/uL Normal 2.0-7.7 [facility] Comment on above: Performed By: #### L 501.5200, L501.2300, L500.2500, L100.0100 ####[facility] [address] [place], [address] Basophils/100 WBC (Bld) 0.3 % Normal 0-1 [facility] Comment on above: Performed By: #### L 501.5200, L501.2300, L500.2500, L100.0100 ####[facility] [address] [place], [address] Eosinophils/100 WBC (Bld) 5.5 % High 0-5 [facility] Comment on above: Performed By: #### L 501.5200, L501.2300, L500.2500, L100.0100 ####[facility] [address] [place], [address] Erythrocyte distribution width (RBC) [Ratio] 13.8 % Normal 11.6-14.6 [facility] Comment on above: Performed By: #### L 501.5200, L501.2300, L500.2500, L100.0100 ####[facility] [address] [place], [address] Hematocrit (Bld) [Volume fraction] 34.1 % Low 37-47 [facility] Comment on above: Performed By: #### L 501.5200, L501.2300, L500.2500, L100.0100 ####[facility] [address] [place], [address] Hemoglobin (Bld) [Mass/Vol] 10.8 g/dL Low 12.0-15.0 [facility] Comment on above: Performed By: #### L 501.5200, L501.2300, L500.2500, L100.0100 ####[facility] [address] [place], [address] IG% 0.400 Normal 0.0-0.9 [facility] Comment on above: Result Comment: IG% - Immature Granulocytes (promyelocytes, myelocytes andmetamyelocytes) > 1% indicates that a LEFT SHIFT is Present. Performed By: #### L 501.5200, L501.2300, L500.2500, L100.0100 ####[facility] [address] [place], [address] Lymphocytes/100 WBC (Bld) 9.2 % Low 19-41 [facility] Comment on above: Performed By: #### L 501.5200, L501.2300, L500.2500, L100.0100 ####[facility] [address] [place], [address] MCH (RBC) [Entitic mass] 29.1 pg Normal 27.0-32.0 [facility] Comment on above: Performed By: #### L 501.5200, L501.2300, L500.2500, L100.0100 ####[facility] [address] [place], [address] MCHC (RBC) [Mass/Vol] 31.7 g/dL Low 32-36 [facility] Comment on above: Performed By: #### L 501.5200, L501.2300, L500.2500, L100.0100 ####[facility] [address] [place], [address] MCV (RBC) [Entitic vol] 91.9 fL Normal 81-99 [facility] Comment on above: Performed By: #### L 501.5200, L501.2300, L500.2500, L100.0100 ####[facility] [address] [place], [address] Monocytes/100 WBC (Bld) 7.1 % Normal 0-10 [facility] Comment on above: Performed By: #### L 501.5200, L501.2300, L500.2500, L100.0100 ####[facility] [address] [place], [address] Neutrophils/100 WBC (Bld) 77.5 % High 47-70 [facility] Comment on above: Performed By: #### L 501.5200, L501.2300, L500.2500, L100.0100 ####[facility] [address] [place], [address] Nucleated RBC (Bld) [#/Vol] 0 10*3/uL Normal 0-5 [facility] Comment on above: Performed By: #### L 501.5200, L501.2300, L500.2500, L100.0100 ####[facility] [address] [place], [address] Platelet mean volume (Bld) [Entitic vol] 10.0 fL Normal 6.2-12.0 [facility] Comment on above: Performed By: #### L 501.5200, L501.2300, L500.2500, L100.0100 ####[facility] [address] [place], [address] Platelets (Bld) [#/Vol] 162 10*3/uL Normal 150-450 [facility] Comment on above: Performed By: #### L 501.5200, L501.2300, L500.2500, L100.0100 ####[facility] [address] [place], [address] RBC (Bld) [#/Vol] 3.71 10*6/uL Low 4.2-5.4 [facility] Comment on above: Performed By: #### L 501.5200, L501.2300, L500.2500, L100.0100 ####[facility] [address] [place], [address] RDW SD 47.0 fl High 35.1-43.9 [facility] Comment on above: Performed By: #### L 501.5200, L501.2300, L500.2500, L100.0100 ####[facility] [address] [place], [address] WBC (Bld) [#/Vol] 6.9 10*3/uL Normal 4.4-11.0 [facility] Comment on above: Performed By: #### L 501.5200, L501.2300, L500.2500, L100.0100 ####[facility] [address] [place], [address] Gram Stainon 11-11-2024 GS yes rocephin, vanc, maxipime Gram Stain 2+ Red Blood Cells 1+ White Blood Cells No organisms seen Normal [facility] Comment on above: Performed By: #### M 100.2000, M100.4001, M100.2900, L200.0200 ####[facility] [address] [place], [address] Magnesiumon 11-11-2024 Magnesium [Mass/Vol] 2.0 mg/dL Normal 1.6-2.6 [facility] Comment on above: Performed By: #### L 501.5200, L501.2300, L500.2500, L100.0100 ####[facility] [address] [place], [address] Partial Thromboplast Timeon 11-11-2024 aPTT Coag (Bld) [Time] 75.2 s High 24.1-36.2 [facility] Comment on above: Performed By: #### L 300.4310 ####[facility] [address] [place], [address] Phosphoruson 11-11-2024 Phosphate [Mass/Vol] 2.8 mg/dL Normal 2.5-4.9 [facility] Comment on above: Performed By: #### L 501.5200, L501.2300, L500.2500, L100.0100 ####[facility] [address] [place], [address] Synovial Fluid RBC, WBC AND Diffon 11-11-2024 PATH COM/SYFL Reviewed Normal [facility] Comment on above: Result Comment: Nega tive for malignant cells.ACUTE INFLAMMATIONKg Caruso M.D. 11/11/24 AMENDED REPORT 11/11/24 1342 PATH COM/SYFL previously reported as: May follow Performed By: #### L 200.0400 ####[facility] [address] [place], [address] Vancomycin, Trough Levelon 0 11-11-2024 VANCO, TROUGH 10.3 ug/mL Normal 5.0-15.0 [facility] Comment on above: Order Comment: Comme nts: Trough to be drawn 30 mins prior to scheduled [id number] Result Comment: VANC OMYCIN STANDARED DRUG THERAPY TROUGH LEVEL: 5.0 - 15.0 mg/LVANCOMYCIN HIGH INTENSITY THERAPY TROUGH LEVEL: 15.0 - 20.0 mg/LHigh Intensity therapy recommended for serious lifethreatening infections include:- Flfrqspbik-Otuldjugyzce-Itphkyiwx (Ventilator/Healtcare Associated)-SepsisPLEASE CONTACT PHARMACY SERVICES (#3964) FOR INTERPRETATIONOF RESULTS. Performed By: #### L 501.8820 ####[facility] [address] [place], [address] Anaerobic cultureOrdered By: Elmo Velásquez on 11-10-2024 Bacteria identified Anaer cx Nom (Unsp spec) No growth in 5 days. [facility] Automated synovial fluid fatmata kocytes count (number/volume)Ordered By: Aaron Tony on 11-10-2024 WBC Auto (Syn fld) [#/Vol] 58.8000 10^3/uL High 0.000-0.002 [facility] Automated synovial fluid mon onuclear cell count (number/volume)Ordered By: Aaron Tony on 11-10-2024 Mononuclear cells Auto (Syn fld) [#/Vol] 0.457 10^3/ul [facility] Automated synovial fluid anu ymorphonuclear cell count (number/volume)Ordered By: Aaron Tony on 11-10-2024 Polymorphonuclear cells Auto (Syn fld) [#/Vol] 5.423 10^3/uL [facility] Automated synovial fluid anu ymorphonuclear cells as percentage of leukocytesOrdered By: Aaron Tony on 11-10-2024 Polymorphonuclear cells/100 WBC Auto (Syn fld) 92.2 % [facility] Bilirubin, totalOrdered By: Shadia Nance on 11-10-2024 Bilirubin [Mass/Vol] 1.00 mg/dL 0.20-1.00 [facility] Blood lymphocytes/100 leukoc ytesOrdered By: Aaron Tony on 11-10-2024 Lymphocytes/100 WBC (Bld) 2 % [facility] Body Fluid Cell Count+Diffon 11-10-2024 BF MN WBC# 0.457 10 3/uL Normal [facility] Comment on above: Result Comment: CLIVE RED INCORRECTLY, ORDERING A SYNOVIAL FLUID Performed By: #### M 100.2000, M100.4001, M100.2900, L200.0200 ####[facility] [address] [place], [address] BF MN WBC% 7.8 Normal [facility] Comment on above: Result Comment: CLIVE RED INCORRECTLY, ORDERING A SYNOVIAL FLUID Performed By: #### M 100.2000, M100.4001, M100.2900, L200.0200 ####[facility] [address] [place], [address] BF PMN WBC# 5.423 10 3/uL Normal [facility] Comment on above: Result Comment: CLIVE RED INCORRECTLY, ORDERING A SYNOVIAL FLUID Performed By: #### M 100.1999, M100.4001, M100.2900, L200.0200 ####[facility] [address] [place], [address] BF PMN WBC% 92.2 Normal [facility] Comment on above: Result Comment: CLIVE RED INCORRECTLY, ORDERING A SYNOVIAL FLUID Performed By: #### M , M100.4001, M100.2900, L200.0200 ####[facility] [address] [place], [address] BFTC# 5.933 10 3/ul High [facility] Comment on above: Result Comment: CLIVE RED INCORRECTLY, ORDERING A SYNOVIAL FLUIDThis is the Total Number of Nucleated Cell Types in the BodyFluid. Performed By: #### M , M100.400, M100.2900, L200.0200 ####[facility] [address] [place], [address] RBC/BF 0.012 10 6/ul Normal [facility] Comment on above: Result Comment: CLIVE RED INCORRECTLY, ORDERING A SYNOVIAL FLUID Performed By: #### M , M100.4001, M100.2900, L200.0200 ####[facility] [address] [place], [address] WBC/BF 5.880 10 3/uL Normal [facility] Comment on above: Result Comment: CLIVE RED INCORRECTLY, ORDERING A SYNOVIAL FLUID Performed By: #### M , M100.4001, M100.2900, L200.0200 ####[facility] [address] [place], [address] PATH COMM/BF May follow [facility] Comment on above: Result Comment: ORDE RED INCORRECTLY, ORDERING A SYNOVIAL FLUID Performed By: #### M 100.1999, M100.4001, M100.2900, L200.0200 ####[facility] [address] [place], [address] APPEAR/BF Normal [facility] Comment on above: Result Comment: ORDE RED INCORRECTLY, ORDERING A SYNOVIAL FLUID Performed By: #### M 100.1999, M100.4001, M100.2900, L200.0200 ####[facility] [address] [place], [address] BFM 2ND SPEC [facility] Comment on above: Result Comment: ORDE RED INCORRECTLY, ORDERING A SYNOVIAL FLUID Performed By: #### M 100.1999, M100.4001, M100.2900, L200.0200 ####[facility] [address] [place], [address] BODY FLUID QC [facility] Comment on above: Result Comment: JOHNNYE RED INCORRECTLY, ORDERING A SYNOVIAL FLUID Performed By: #### M 100.1999, M100.4001, M100.2900, L200.0200 ####[facility] [address] [place], [address] COLOR/BF [facility] Comment on above: Result Comment: ORDE RED INCORRECTLY, ORDERING A SYNOVIAL FLUID Performed By: #### M 100.1999, M100.4001, M100.2900, L200.0200 ####[facility] [address] [place], [address] qBKG ANALYZ OK? Normal W/IN LIMITS [facility] Comment on above: Result Comment: ORDE RED INCORRECTLY, ORDERING A SYNOVIAL FLUID Performed By: #### M 100.1999, M100.4001, M100.2900, L200.0200 ####[facility] [address] [place], [address] SOURCE/BF Normal [facility] Comment on above: Result Comment: CLIVE RED INCORRECTLY, ORDERING A SYNOVIAL FLUID Performed By: #### M 100.2000, M100.4001, M100.2900, L200.0200 ####[facility] [address] [place], [address] CBC W/Diff, Automatedon 02-0 -2024 Absolute Lymph 0.63 X10 3/uL Low 0.83-4.51 [facility] Comment on above: Performed By: #### L 100.0100, L500.4050 ####[facility] [address] [place], [address] Absolute Neut 4.6 X10 3/uL Normal 2.0-7.7 [facility] Comment on above: Performed By: #### L 100.0100, L500.4050 ####[facility] [address] [place], [address] Basophils/100 WBC (Bld) 0.2 % Normal 0-1 [facility] Comment on above: Performed By: #### L 100.0100, L500.4050 ####[facility] [address] [place], [address] Eosinophils/100 WBC (Bld) 1.0 % Normal 0-5 [facility] Comment on above: Performed By: #### L 100.0100, L500.4050 ####[facility] [address] [place], [address] Erythrocyte distribution width (RBC) [Ratio] 13.5 % Normal 11.6-14.6 [facility] Comment on above: Performed By: #### L 100.0100, L500.4050 ####[facility] [address] [place], [address] Hematocrit (Bld) [Volume fraction] 30.1 % Low 37-47 [facility] Comment on above: Performed By: #### L 100.0100, L500.4050 ####[facility] [address] [place], [address] Hemoglobin (Bld) [Mass/Vol] 9.7 g/dL Low 12.0-15.0 [facility] Comment on above: Performed By: #### L 100.0100, L500.4050 ####[facility] [address] [place], [address] IG% 0.300 Normal 0.0-0.9 [facility] Comment on above: Result Comment: IG% - Immature Granulocytes (promyelocytes, myelocytes andmetamyelocytes) > 1% indicates that a LEFT SHIFT is Present. Performed By: #### L 100.0100, L500.4050 ####[facility] [address] [place], [address] Lymphocytes/100 WBC (Bld) 10.8 % Low 19-41 [facility] Comment on above: Performed By: #### L 100.0100, L500.4050 ####[facility] [address] [place], [address] MCH (RBC) [Entitic mass] 29.6 pg Normal 27.0-32.0 [facility] Comment on above: Performed By: #### L 100.0100, L500.4050 ####[facility] [address] [place], [address] MCHC (RBC) [Mass/Vol] 32.2 g/dL Normal 32-36 [facility] Comment on above: Performed By: #### L 100.0100, L500.4050 ####[facility] [address] [place], [address] MCV (RBC) [Entitic vol] 91.8 fL Normal 81-99 [facility] Comment on above: Performed By: #### L 100.0100, L500.4050 ####[facility] [address] [place], [address] Monocytes/100 WBC (Bld) 9.2 % Normal 0-10 [facility] Comment on above: Performed By: #### L 100.0100, L500.4050 ####[facility] [address] [place], [address] Neutrophils/100 WBC (Bld) 78.5 % High 47-70 [facility] Comment on above: Performed By: #### L 100.0100, L500.4050 ####[facility] [address] [place], [address] Nucleated RBC (Bld) [#/Vol] 0 10*3/uL Normal 0-5 [facility] Comment on above: Performed By: #### L 100.0100, L500.4050 ####[facility] [address] [place], [address] Platelet mean volume (Bld) [Entitic vol] 9.7 fL Normal 6.2-12.0 [facility] Comment on above: Performed By: #### L 100.0100, L500.4050 ####[facility] [address] [place], [address] Platelets (Bld) [#/Vol] 123 10*3/uL Low 150-450 [facility] Comment on above: Performed By: #### L 100.0100, L500.4050 ####[facility] [address] [place], [address] RBC (Bld) [#/Vol] 3.28 10*6/uL Low 4.2-5.4 [facility] Comment on above: Performed By: #### L 100.0100, L500.4050 ####[facility] [address] [place], [address] RDW SD 45.6 fl High 35.1-43.9 [facility] Comment on above: Performed By: #### L 100.0100, L500.4050 ####[facility] [address] [place], [address] WBC (Bld) [#/Vol] 5.9 10*3/uL Normal 4.4-11.0 [facility] Comment on above: Performed By: #### L 100.0100, L500.4050 ####[facility] [address] [place], [address] Comprehensive Metabolic Prof ilon 11-10-2024 Albumin [Mass/Vol] 2.0 g/dL Low 3.2-5.0 [facility] Comment on above: Performed By: #### L 100.0100, L500.4050 ####[facility] [address] [place], [address] Albumin/Globulin [Mass ratio] 0.5 {ratio} Low 0.9-2.4 [facility] Comment on above: Performed By: #### L 100.0100, L500.4050 ####[facility] [address] [place], [address] ALK P 426 U/L High 45-117 [facility] Comment on above: Performed By: #### L 100.0100, L500.4050 ####[facility] [address] [place], [address] ALT [Catalytic activity/Vol] 162 U/L High 13-56 [facility] Comment on above: Performed By: #### L 100.0100, L500.4050 ####[facility] [address] [place], [address] AST [Catalytic activity/Vol] 156 U/L High 15-37 [facility] Comment on above: Performed By: #### L 100.0100, L500.4050 ####[facility] [address] [place], [address] Bilirubin [Mass/Vol] 1.00 mg/dL Normal 0.20-1.00 [facility] Comment on above: Result Comment: For patients on eltrombopag therapy, use of Dimension Connelly TBIL is not recommended. Performed By: #### L 100.0100, L500.4050 ####[facility] [address] [place], [address] BUN/CRE 45.0 RATIO High 10-20 [facility] Comment on above: Performed By: #### L 100.0100, L500.4050 ####[facility] [address] [place], [address] CA,Total 7.9 mg/dL Low 8.5-10.1 [facility] Comment on above: Performed By: #### L 100.0100, L500.4050 ####[facility] [address] [place], [address] Chloride [Moles/Vol] 113 mmol/L High 98-107 [facility] Comment on above: Performed By: #### L 100.0100, L500.4050 ####[facility] [address] [place], [address] CO2 [Moles/Vol] 22.0 mmol/L Normal 21.0-32.0 [facility] Comment on above: Performed By: #### L 100.0100, L500.4050 ####[facility] [address] [place], [address] Creatinine [Mass/Vol] 0.42 mg/dL Low 0.55-1.02 [facility] Comment on above: Result Comment: The validity of the calculated GFR GFRAA in patients over70 years has not been determined. Clinical correlation isessential. Performed By: #### L 100.0100, L500.4050 ####[facility] [address] [place], [address] ECRCL 67.83 ml/min Normal [facility] Comment on above: Performed By: #### L 100.0100, L500.4050 ####[facility] [address] [place], [address] EST GFR - AA 189 mL/min Normal >60 [facility] Comment on above: Result Comment: Afri can [place] GFR Calc Performed By: #### L 100.0100, L500.4050 ####[facility] [address] [place], [address] GAP 7 Normal 5-15 [facility] Comment on above: Performed By: #### L 100.0100, L500.4050 ####[facility] [address] [place], [address] GFR/1.73 sq M.predicted among non-blacks MDRD (S/P/Bld) [Vol rate/Area] 157 mL/min/{1.73_m2} Normal >60 [facility] Comment on above: Result Comment: Non- GFR Calc Performed By: #### L 100.0100, L500.4050 ####[facility] [address] [place], [address] Globulin (S) [Mass/Vol] 3.8 g/dL Normal 2.2-4.2 [facility] Comment on above: Performed By: #### L 100.0100, L500.4050 ####[facility] [address] [place], [address] Glucose [Mass/Vol] 109 mg/dL High 74-106 [facility] Comment on above: Result Comment: Fast ing Glucose result from 100 to 125 mg/dLsuggests IMPAIRED HOMEOSTASIS per A.D.A. criteria. Performed By: #### L 100.0100, L500.4050 ####[facility] [address] [place], [address] Potassium [Moles/Vol] 3.8 mmol/L Normal 3.5-5.1 [facility] Comment on above: Performed By: #### L 100.0100, L500.4050 ####[facility] [address] [place], [address] Sodium [Moles/Vol] 142 mmol/L Normal 136-145 [facility] Comment on above: Performed By: #### L 100.0100, L500.4050 ####[facility] [address] [place], [address] T PROT 5.8 g/dL Low 6.4-8.2 [facility] Comment on above: Performed By: #### L 100.0100, L500.4050 ####[facility] [address] [place], [address] Urea nitrogen [Mass/Vol] 19 mg/dL High 7-18 [facility] Comment on above: Performed By: #### L 100.0100, L500.4050 ####[facility] [address] [place], [address] Consultation - Infectious Dx on 11-10-2024 Consultation - Infectious Dx Normal [facility] Consultation - Intensiviston 11-10-2024 Consultation - Supervisor Final Normal [facility] Consultation - Surgicalon Consultation - Surgical Normal [facility] Determination of appearance of synovial fluid (nominal result)Ordered By: Aaron Tony on 11-10-2024 Appearance (Syn fld) VISCOUS CLEAR [facility] Gram Stainon 11-10-2024 GS Positive Normal [facility] Comment on above: Performed By: #### M 100.2000, M8200.1075, M100.3000 ####[facility] [address] [place], [address] Gram stainOrdered By: Elmo Velásquez on 11-10-2024 Microscopic observation Gram stain Nom (Unsp spec) [facility] M8200.1075on 11-10-2024 M8200.1075 Pending MRSA PCR MRSA NEGATIVE STAPH. AUREUS PCR STAPH. AUREUS NEGATIVE Normal [facility] Comment on above: Performed By: #### M 100.2000, M8200.1075, M100.3000 ####[facility] [address] [place], [address] No Panel InformationOrdered By: Shadia Nance on 11-10-2024 156 U/L High 15-37 [facility] Partial Thromboplast Timeon 11-10-2024 aPTT Coag (Bld) [Time] 68.5 s High 24.1-36.2 [facility] Comment on above: Performed By: #### L 300.4310 ####[facility] [address] [place], [address] aPTT Coag (Bld) [Time] 64.9 s High 24.1-36.2 [facility] Comment on above: Performed By: #### L 300.4310 ####[facility] [address] [place], [address] aPTT Coag (Bld) [Time] 95.3 s Invalid Interpretation Code 24.1-36.2 [facility] Comment on above: Result Comment: CRIT ICAL VALUE CALLED TO [id number]/06/25 0646 Henry Brady.RESULTS READ BACK BY SAME. Performed By: #### L 300.4310 ####[facility] [address] [place], [address] Pathologist review of result s (narrative result)Ordered By: Aaron Tony on 11-10-2024 Pathologist review Johnny (Unsp spec) [Interp] Reviewed [facility] Serum globulin measurementOr dered By: Shadia Nance on 11-10-2024 Globulin (S) [Mass/Vol] 3.8 g/dL 2.2-4.2 [facility] Serum or plasma alanine fenton otransferase (ALT) measurementOrdered By: Shadia Goyo on 11-10-2024 ALT [Catalytic activity/Vol] 162 U/L High 13-56 [facility] Serum or plasma albumin rosemary urement (mass/volume)Ordered By: on 11-10-2024 Albumin [Mass/Vol] 2.0 g/dL Low 3.2-5.0 [facility] Serum or plasma alkaline aureliano sphatase measurementOrdered By: Shadia Goyo on 11-10-2024 ALP [Catalytic activity/Vol] 426 U/L High 45-117 [facility] Specimen source identificati on of body fluidOrdered By: Aaron Tony on 11-10-2024 Specimen source Nom (Body fld) RIGHT KNEE [facility] Synovial fluid color determi nation (nominal result)Ordered By: Aaron Tony on 11-10-2024 Color (Syn fld) RED Pale Yellow [facility] Synovial fluid erythrocytes count (number/volume)Ordered By: Aaron Tony on 11-10-2024 RBC (Syn fld) [#/Vol] 0.120 10^6/uL High 0-0 [facility] Synovial fluid monocyte perc entageOrdered By: Aaron Tony on 11-10-2024 Monocytes/100 WBC (Syn fld) 7 % [facility] Synovial fluid mononuclear c ells/100 leukocytesOrdered By: Aaron Tony on 11-10-2024 Mononuclear cells/100 WBC (Syn fld) 7.8 % [facility] Synovial fluid neutrophil pe rcentageOrdered By: Aaron Tony on 11-10-2024 Neutrophils/100 WBC (Syn fld) 91 % High 0-25 [facility] Synovial fluid total cell co untOrdered By: Aaron Tony on 11-10-2024 Cells Counted Total (Syn fld) [#] 59.3300 10^3/uL High 0.000-0.000 [facility] Total proteinOrdered By: Aut efren Nance on 11-10-2024 Protein [Mass/Vol] 5.8 g/dL Low 6.4-8.2 [facility] Urine Cultureon 11-10-2024 URC Culture exhibits no growth. Normal [facility] Comment on above: Performed By: #### M 100.2200, M100.678, L400.0001 ####[facility] [address] [place], [address] 12 Lead EKGon 11-09-2024 12 Lead EKG Normal [facility] 12 Lead EKG Normal [facility] [facility] Basic Metabolic Profile (BMP )on 11-09-2024 BUN/CRE 32.9 RATIO High 10-20 [facility] Comment on above: Performed By: #### L 101.9900, L100.0500, L500.2500 ####[facility] [address] [place], [address] CA,Total 8.9 mg/dL Normal 8.5-10.1 [facility] Comment on above: Performed By: #### L 101.9900, L100.0500, L500.2500 ####[facility] [address] [place], [address] Chloride [Moles/Vol] 104 mmol/L Normal 98-107 [facility] Comment on above: Performed By: #### L 101.9900, L100.0500, L500.2500 ####[facility] [address] [place], [address] CO2 [Moles/Vol] 27.0 mmol/L Normal 21.0-32.0 [facility] Comment on above: Performed By: #### L 101.9900, L100.0500, L500.2500 ####[facility] [address] [place], [address] Creatinine [Mass/Vol] 0.73 mg/dL Normal 0.55-1.02 [facility] Comment on above: Result Comment: The validity of the calculated GFR GFRAA in patients over70 years has not been determined. Clinical correlation isessential. Performed By: #### L 101.9900, L100.0500, L500.2500 ####[facility] [address] [place], [address] EST GFR - AA 101 mL/min Normal >60 [facility] Comment on above: Result Comment: Afri can British GFR Calc Performed By: #### L 101.9900, L100.0500, L500.2500 ####[facility] [address] [place], [address] GAP 7 Normal 5-15 [facility] Comment on above: Performed By: #### L 101.9900, L100.0500, L500.2500 ####[facility] [address] [place], [address] GFR/1.73 sq M.predicted among non-blacks MDRD (S/P/Bld) [Vol rate/Area] 83 mL/min/{1.73_m2} Normal >60 [facility] Comment on above: Result Comment: Non- GFR Calc Performed By: #### L 101.9900, L100.0500, L500.2500 ####[facility] [address] [place], [address] Glucose [Mass/Vol] 113 mg/dL High 74-106 [facility] Comment on above: Result Comment: Fast ing Glucose result from 100 to 125 mg/dLsuggests IMPAIRED HOMEOSTASIS per A.D.A. criteria. Performed By: #### L 101.9900, L100.0500, L500.2500 ####[facility] [address] [place], [address] Potassium [Moles/Vol] 3.6 mmol/L Normal 3.5-5.1 [facility] Comment on above: Performed By: #### L 101.9900, L100.0500, L500.2500 ####[facility] [address] [place], [address] Sodium [Moles/Vol] 138 mmol/L Normal 136-145 [facility] Comment on above: Performed By: #### L 101.9900, L100.0500, L500.2500 ####[facility] [address] [place], [address] Urea nitrogen [Mass/Vol] 24 mg/dL High 7-18 [facility] Comment on above: Performed By: #### L 101.9900, L100.0500, L500.2500 ####[facility] [address] [place], [address] Bilirubin Test strip Ql (U)O rdered By: Robbie Harrell on 11-09-2024 Bilirubin Ql (U) 1 mg/dL High Negative [facility] Blood cultureOrdered By: Erwin Harrell on 11-09-2024 Bacteria identified Cx Nom (Bld) No growth in 5 days. [facility] Bacteria identified Cx Nom (Bld) No growth in 5 days. [facility] CBC W/Diff, Automatedon 02-0 Absolute Lymph 0.30 X10 3/uL Low 0.83-4.51 [facility] Comment on above: Performed By: #### L 300.3900, L100.0100, L503.6005, M200.1000, L300.4310 ####[facility] [address] [place], [address] Absolute Neut 5.4 X10 3/uL Normal 2.0-7.7 [facility] Comment on above: Performed By: #### L 300.3900, L100.0100, L503.6005, M200.1000, L300.4310 ####[facility] [address] [place], [address] Basophils/100 WBC (Bld) 0.3 % Normal 0-1 [facility] Comment on above: Performed By: #### L 300.3900, L100.0100, L503.6005, M200.1000, L300.4310 ####[facility] [address] [place], [address] Eosinophils/100 WBC (Bld) 1.8 % Normal 0-5 [facility] Comment on above: Performed By: #### L 300.3900, L100.0100, L503.6005, M200.1000, L300.4310 ####[facility] [address] [place], [address] Erythrocyte distribution width (RBC) [Ratio] 13.3 % Normal 11.6-14.6 [facility] Comment on above: Performed By: #### L 300.3900, L100.0100, L503.6005, M200.1000, L300.4310 ####[facility] [address] [place], [address] Hematocrit (Bld) [Volume fraction] 34.8 % Low 37-47 [facility] Comment on above: Performed By: #### L 300.3900, L100.0100, L503.6005, M200.1000, L300.4310 ####[facility] [address] [place], [address] Hemoglobin (Bld) [Mass/Vol] 11.2 g/dL Low 12.0-15.0 [facility] Comment on above: Performed By: #### L 300.3900, L100.0100, L503.6005, M200.1000, L300.4310 ####[facility] [address] [place], [address] IG% 1.200 High 0.0-0.9 [facility] Comment on above: Result Comment: IG% - Immature Granulocytes (promyelocytes, myelocytes andmetamyelocytes) > 1% indicates that a LEFT SHIFT is Present. Performed By: #### L 300.3900, L100.0100, L503.6005, M200.1000, L300.4310 ####[facility] [address] [place], [address] Lymphocytes/100 WBC (Bld) 5.0 % Low 19-41 [facility] Comment on above: Performed By: #### L 300.3900, L100.0100, L503.6005, M200.1000, L300.4310 ####[facility] [address] [place], [address] MCH (RBC) [Entitic mass] 29.5 pg Normal 27.0-32.0 [facility] Comment on above: Performed By: #### L 300.3900, L100.0100, L503.6005, M200.1000, L300.4310 ####[facility] [address] [place], [address] MCHC (RBC) [Mass/Vol] 32.2 g/dL Normal 32-36 [facility] Comment on above: Performed By: #### L 300.3900, L100.0100, L503.6005, M200.1000, L300.4310 ####[facility] [address] [place], [address] MCV (RBC) [Entitic vol] 91.6 fL Normal 81-99 [facility] Comment on above: Performed By: #### L 300.3900, L100.0100, L503.6005, M200.1000, L300.4310 ####[facility] [address] [place], [address] Monocytes/100 WBC (Bld) 2.1 % Normal 0-10 [facility] Comment on above: Performed By: #### L 300.3900, L100.0100, L503.6005, M200.1000, L300.4310 ####[facility] [address] [place], [address] Neutrophils/100 WBC (Bld) 89.6 % High 47-70 [facility] Comment on above: Performed By: #### L 300.3900, L100.0100, L503.6005, M200.1000, L300.4310 ####[facility] [address] [place], [address] Nucleated RBC (Bld) [#/Vol] 0 10*3/uL Normal 0-5 [facility] Comment on above: Performed By: #### L 300.3900, L100.0100, L503.6005, M200.1000, L300.4310 ####[facility] [address] [place], [address] Platelet mean volume (Bld) [Entitic vol] 9.4 fL Normal 6.2-12.0 [facility] Comment on above: Performed By: #### L 300.3900, L100.0100, L503.6005, M200.1000, L300.4310 ####[facility] [address] [place], [address] Platelets (Bld) [#/Vol] 132 10*3/uL Low 150-450 [facility] Comment on above: Performed By: #### L 300.3900, L100.0100, L503.6005, M200.1000, L300.4310 ####[facility] [address] [place], [address] RBC (Bld) [#/Vol] 3.80 10*6/uL Low 4.2-5.4 [facility] Comment on above: Performed By: #### L 300.3900, L100.0100, L503.6005, M200.1000, L300.4310 ####[facility] [address] [place], [address] RDW SD 45.1 fl High 35.1-43.9 [facility] Comment on above: Performed By: #### L 300.3900, L100.0100, L503.6005, M200.1000, L300.4310 ####[facility] [address] [place], [address] WBC (Bld) [#/Vol] 6.1 10*3/uL Normal 4.4-11.0 [facility] Comment on above: Performed By: #### L 300.3900, L100.0100, L503.6005, M200.1000, L300.4310 ####[facility] [address] [place], [address] CBC-Complete Blood Cnt No Di ffon 11-09-2024 Erythrocyte distribution width (RBC) [Ratio] 13.5 % Normal 11.6-14.6 [facility] Comment on above: Performed By: #### L 101.9900, L100.0500, L500.2500 ####[facility] [address] [place], [address] Hematocrit (Bld) [Volume fraction] 35.7 % Low 37-47 [facility] Comment on above: Performed By: #### L 101.9900, L100.0500, L500.2500 ####[facility] [address] [place], [address] Hemoglobin (Bld) [Mass/Vol] 11.4 g/dL Low 12.0-15.0 [facility] Comment on above: Performed By: #### L 101.9900, L100.0500, L500.2500 ####[facility] [address] [place], [address] MCH (RBC) [Entitic mass] 29.6 pg Normal 27.0-32.0 [facility] Comment on above: Performed By: #### L 101.9900, L100.0500, L500.2500 ####[facility] [address] [place], [address] MCHC (RBC) [Mass/Vol] 31.9 g/dL Low 32-36 [facility] Comment on above: Performed By: #### L 101.9900, L100.0500, L500.2500 ####[facility] [address] [place], [address] MCV (RBC) [Entitic vol] 92.7 fL Normal 81-99 [facility] Comment on above: Performed By: #### L 101.9900, L100.0500, L500.2500 ####[facility] [address] [place], [address] Platelet mean volume (Bld) [Entitic vol] 10.1 fL Normal 6.2-12.0 [facility] Comment on above: Performed By: #### L 101.9900, L100.0500, L500.2500 ####[facility] [address] [place], [address] Platelets (Bld) [#/Vol] 161 10*3/uL Normal 150-450 [facility] Comment on above: Performed By: #### L 101.9900, L100.0500, L500.2500 ####[facility] [address] [place], [address] RBC (Bld) [#/Vol] 3.85 10*6/uL Low 4.2-5.4 [facility] Comment on above: Performed By: #### L 101.9900, L100.0500, L500.2500 ####[facility] [address] [place], [address] RDW SD 45.5 fl High 35.1-43.9 [facility] Comment on above: Performed By: #### L 101.9900, L100.0500, L500.2500 ####[facility] [address] [place], [address] WBC (Bld) [#/Vol] 4.4 10*3/uL Normal 4.4-11.0 [facility] Comment on above: Performed By: #### L 101.9900, L100.0500, L500.2500 ####[facility] [address] [place], [address] Chest 1 View (Portable)on Chest 1 View (Portable) Normal [facility] Emergency Department Summary on 11-09-2024 Emergency Department Summary Normal [facility] Erythrocyte Sed Rateon 11-09 SED RATE 42 mm/hr High 0-30 [facility] Comment on above: Performed By: #### L 101.9900, L100.0500, L500.2500 ####[facility] [address] [place], [place], [address] Gram stainOrdered By: Shadia Nance on 11-09-2024 Microscopic observation Gram stain Nom (Unsp spec) [facility] H AND P Exam - Hospitaliston 11-09-2024 H&P Exam - Hospitalist Normal [facility] Influenza virus A and B and SARS-CoV-2 (COVID-19) and Respiratory syncytial virus RNAOrdered By: Robbie Harrell on 11-09-2024 SARS-CoV-2 (COVID-19) RNA LIDIA+probe Ql (Unsp spec) [facility] Ketones Test strip Ql (U)Ord ered By: Robbie Harrell on 11-09-2024 Ketones Ql (U) 5 mg/dl High Negative [facility] Knee 3 Viewson 11-09-2024 Knee 3 Views Normal [facility] Lactic Acidon 11-09-2024 Lactate [Moles/Vol] 0.7 mmol/L Normal 0.4-1.9 [facility] Comment on above: Performed By: #### L 503.6005 ####[facility] [address] [place], [place], [address] Lactate [Moles/Vol] 2.3 mmol/L Invalid Interpretation Code 0.4-1.9 [facility] Comment on above: Order Comment: Y Result Comment: Crit ical Result(s) Called at: 19:49:17 11/09/2024 by: KAREN PENA. Results read back by same. Performed By: #### L 300.3900, L100.0100, L503.6005, M200.1000, L300.4310 ####[facility] [address] [place], [address] M100.678on 11-09-2024 M100.678 Pending SARS-CoV-2 (COVID 19) Negative INFLUENZA A Negative INFLUENZA B Negative RSV PCR Negative Normal [facility] Comment on above: Performed By: #### M 100.2200, M100.678, L400.0001 ####[facility] [address] [place], [address] Magnesiumon 11-09-2024 Magnesium [Mass/Vol] 1.9 mg/dL Normal 1.6-2.6 [facility] Comment on above: Order Comment: Comme nts: may add to ED labs Performed By: #### L 300.4310, L501.5200, L300.3900 ####[facility] [address] [place], [address] Mucus LM Ql (Urine sed)Order ed By: Robbie Harrell on 11-09-2024 Mucus Ql (Urine sed) 0 SEEN /hpf [facility] Nitrite Test strip Ql (U)Ord ered By: Robbie Harrell on 11-09-2024 Nitrite Ql (U) Negative Negative [facility] Partial Thromboplast Timeon 11-09-2024 aPTT Coag (Bld) [Time] 29.9 s Normal 24.1-36.2 [facility] Comment on above: Performed By: #### L 300.4310, L501.5200, L300.3900 ####[facility] [address] [place], [address] aPTT Coag (Bld) [Time] 29.6 s Normal 24.1-36.2 [facility] Comment on above: Performed By: #### L 300.3900, L100.0100, L503.6005, M200.1000, L300.4310 ####[facility] [address] [place], [address] Protein Test strip Ql (U)Ord ered By: Robbie Harrell on 11-09-2024 Protein Ql (U) 30 mg/dl High Negative [facility] Prothrombin Time w/INRon INR Coag (PPP) [Relative time] 1.4 {INR} Normal [facility] Comment on above: Performed By: #### L 300.4310, L501.5200, L300.3900 ####[facility] [address] [place], [address] PT Coag (PPP) [Time] 17.0 s High 11.7-14.9 [facility] Comment on above: Performed By: #### L 300.4310, L501.5200, L300.3900 ####[facility] [address] [place], [address] INR Coag (PPP) [Relative time] 1.3 {INR} Normal [facility] Comment on above: Performed By: #### L 300.3900, L100.0100, L503.6005, M200.1000, L300.4310 ####[facility] [address] [place], [address] PT Coag (PPP) [Time] 16.8 s High 11.7-14.9 [facility] Comment on above: Performed By: #### L 300.3900, L100.0100, L503.6005, M200.1000, L300.4310 ####[facility] [address] [place], [address] Prothrombin timeOrdered By: Shadia Nance on 11-09-2024 PT Coag (PPP) [Time] 17.0 s High 11.7-14.9 [facility] Squamous epithelial cells de tection in urine sediment by light microscopyOrdered By: Robbie Harrell on 11-09-2024 Epithelial cells.squamous LM Ql (Urine sed) 0-5 SEEN /hpf 5-10 [facility] Urinalysis, Completeon 11-09 EPI,SQUAMOUS 0-5 SEEN Normal 5-10 [facility] Comment on above: Order Comment: CLEAN CATCH Performed By: #### M 100.2200, M100.678, L400.0001 ####[facility] [address] [place], [address] WBC 0-5 SEEN Normal 0-5 [facility] Comment on above: Order Comment: CLEAN CATCH Performed By: #### M 100.2200, M100.678, L400.0001 ####[facility] [address] [place], [address] BACTERIA 0 SEEN Normal None Seen [facility] Comment on above: Order Comment: CLEAN CATCH Performed By: #### M 100.2200, M100.678, L400.0001 ####[facility] [address] [place], [address] Mucus Ql (Urine sed) 0 SEEN Normal [facility] Comment on above: Order Comment: CLEAN CATCH Performed By: #### M 100.2200, M100.678, L400.0001 ####[facility] [address] [place], [address] RBC 0 SEEN Normal 0-5 [facility] Comment on above: Order Comment: CLEAN CATCH Performed By: #### M 100.2200, M100.678, L400.0001 ####[facility] [address] [place], [address] Urine clarityOrdered By: Erwin Harrell on 11-09-2024 Clarity (U) Clear Clear [facility] Urine color determinationOrd ered By: Robbie Harrell on 11-09-2024 Color (U) Yellow Yellow [facility] Urine cultureOrdered By: Erwin Harrell on 11-09-2024 Bacteria identified Cx Nom (U) Culture exhibits no growth. [facility] Urine glucose detectionOrder ed By: Robbie Harrell on 11-09-2024 Glucose Ql (U) Normal mg/dl Normal [facility] Urine leukocyte esterase det ection by dipstickOrdered By: Robbie Harrell on 11-09-2024 Leukocyte esterase Test strip Ql (U) 25 /ul High Negative [facility] Urine pHOrdered By: Robbie Aguilera on 11-09-2024 pH (U) 5.0 [pH] 5.0 - 8.0 [facility] Urine sediment bacteria coun t by microscopy (number/high power field)Ordered By: Robbie Harrell on 11-09-2024 Bacteria LM.HPF (Urine sed) [#/Area] 0 /[HPF] None Seen [facility] Urine specific gravity measu rementOrdered By: Robbie Harrell on 11-09-2024 Specific gravity (U) [Rel density] 1.015 1.002-1.030 [facility] Urine urobilinogen measureme ntOrdered By: Robbie Harrell on 11-09-2024 Urobilinogen Ql (U) 1 mg/dl High Normal [facility] Venous Duplex US, Unilateral on 11-09-2024 Venous Duplex US, Unilateral Normal [facility] White blood cell countOrdere d By: Robbie Harrell on 11-09-2024 White blood cell count 0-5 SEEN /hpf 0-5 [facility] Basic Metabolic Profile (BMP )on 11-01-2024 BUN/CRE 37.9 RATIO High 10-20 [facility] Comment on above: Performed By: #### L 500.2500, L100.0500, L101.9900 ####[facility] [address] [place], [address] CA,Total 9.5 mg/dL Normal 8.5-10.1 [facility] Comment on above: Performed By: #### L 500.2500, L100.0500, L101.9900 ####[facility] [address] [place], [address] Chloride [Moles/Vol] 102 mmol/L Normal 98-107 [facility] Comment on above: Performed By: #### L 500.2500, L100.0500, L101.9900 ####[facility] [address] [place], [address] CO2 [Moles/Vol] 25.0 mmol/L Normal 21.0-32.0 [facility] Comment on above: Performed By: #### L 500.2500, L100.0500, L101.9900 ####[facility] [address] [place], [address] Creatinine [Mass/Vol] 0.55 mg/dL Normal 0.55-1.02 [facility] Comment on above: Result Comment: The validity of the calculated GFR GFRAA in patients over70 years has not been determined. Clinical correlation isessential. Performed By: #### L 500.2500, L100.0500, L101.9900 ####[facility] [address] [place], [address] EST GFR - AA 138 mL/min Normal >60 [facility] Comment on above: Result Comment: Afri can British GFR Calc Performed By: #### L 500.2500, L100.0500, L101.9900 ####[facility] [address] [place], [address] GAP 9 Normal 5-15 [facility] Comment on above: Performed By: #### L 500.2500, L100.0500, L101.9900 ####[facility] [address] [place], [address] GFR/1.73 sq M.predicted among non-blacks MDRD (S/P/Bld) [Vol rate/Area] 114 mL/min/{1.73_m2} Normal >60 [facility] Comment on above: Result Comment: Non- GFR Calc Performed By: #### L 500.2500, L100.0500, L101.9900 ####[facility] [address] [place], [address] Glucose [Mass/Vol] 113 mg/dL High 74-106 [facility] Comment on above: Result Comment: Fast ing Glucose result from 100 to 125 mg/dLsuggests IMPAIRED HOMEOSTASIS per A.D.A. criteria. Performed By: #### L 500.2500, L100.0500, L101.9900 ####[facility] [address] [place], [address] Potassium [Moles/Vol] 3.6 mmol/L Normal 3.5-5.1 [facility] Comment on above: Performed By: #### L 500.2500, L100.0500, L101.9900 ####[facility] [address] [place], [address] Sodium [Moles/Vol] 137 mmol/L Normal 136-145 [facility] Comment on above: Performed By: #### L 500.2500, L100.0500, L101.9900 ####[facility] [address] [place], [address] Urea nitrogen [Mass/Vol] 21 mg/dL High 7-18 [facility] Comment on above: Performed By: #### L 500.2500, L100.0500, L101.9900 ####[facility] [address] [place], [address] CBC-Complete Blood Cnt No Areli gatica 11-01-2024 Erythrocyte distribution width (RBC) [Ratio] 13.3 % Normal 11.6-14.6 [facility] Comment on above: Performed By: #### L 500.2500, L100.0500, L101.9900 ####[facility] [address] [place], [address] Hematocrit (Bld) [Volume fraction] 34.7 % Low 37-47 [facility] Comment on above: Performed By: #### L 500.2500, L100.0500, L101.9900 ####[facility] [address] [place], [address] Hemoglobin (Bld) [Mass/Vol] 11.1 g/dL Low 12.0-15.0 [facility] Comment on above: Performed By: #### L 500.2500, L100.0500, L101.9900 ####[facility] [address] [place], [address] MCH (RBC) [Entitic mass] 29.6 pg Normal 27.0-32.0 [facility] Comment on above: Performed By: #### L 500.2500, L100.0500, L101.9900 ####[facility] [address] [place], [address] MCHC (RBC) [Mass/Vol] 32.0 g/dL Normal 32-36 [facility] Comment on above: Performed By: #### L 500.2500, L100.0500, L101.9900 ####[facility] [address] [place], [address] MCV (RBC) [Entitic vol] 92.5 fL Normal 81-99 [facility] Comment on above: Performed By: #### L 500.2500, L100.0500, L101.9900 ####[facility] [address] [place], [address] Platelet mean volume (Bld) [Entitic vol] 8.9 fL Normal 6.2-12.0 [facility] Comment on above: Performed By: #### L 500.2500, L100.0500, L101.9900 ####[facility] [address] [place], [address] Platelets (Bld) [#/Vol] 316 10*3/uL Normal 150-450 [facility] Comment on above: Performed By: #### L 500.2500, L100.0500, L101.9900 ####[facility] [address] [place], [address] RBC (Bld) [#/Vol] 3.75 10*6/uL Low 4.2-5.4 [facility] Comment on above: Performed By: #### L 500.2500, L100.0500, L101.9900 ####[facility] [address] [place], [address] RDW SD 44.6 fl High 35.1-43.9 [facility] Comment on above: Performed By: #### L 500.2500, L100.0500, L101.9900 ####[facility] [address] [place], [address] WBC (Bld) [#/Vol] 5.9 10*3/uL Normal 4.4-11.0 [facility] Comment on above: Performed By: #### L 500.2500, L100.0500, L101.9900 ####[facility] [address] [place], [address] Erythrocyte Sed Rateon 11-01 SED RATE 50 mm/hr High 0-30 [facility] Comment on above: Performed By: #### L 500.2500, L100.0500, L101.9900 ####[facility] [address] [place], [address] Wound Ctr History AND Physic dada 11-01-2024 Wound Ctr History & Physical Normal [facility] Basic Metabolic Profile (BMP )on 10-24-2024 BUN/CRE 28.6 RATIO High 07-24 [facility] Comment on above: Order Comment: FAX R ESULTS TO [phone] Performed By: #### L 101.9900, L500.2500, L100.0500 ####[facility] [address] [place], [address] CA,Total 9.0 mg/dL Normal 8.5-10.1 [facility] Comment on above: Order Comment: FAX R ESULTS TO [phone] Performed By: #### L 101.9900, L500.2500, L100.0500 ####[facility] [address] [place], [address] Chloride [Moles/Vol] 106 mmol/L Normal 98-107 [facility] Comment on above: Order Comment: FAX R ESULTS TO [phone] Performed By: #### L 101.9900, L500.2500, L100.0500 ####[facility] [address] [place], [address] CO2 [Moles/Vol] 27.0 mmol/L Normal 21.0-32.0 [facility] Comment on above: Order Comment: FAX R ESULTS TO [phone] Performed By: #### L 101.9900, L500.2500, L100.0500 ####[facility] [address] [place], [address] Creatinine [Mass/Vol] 0.49 mg/dL Low 0.55-1.02 [facility] Comment on above: Order Comment: FAX R ESULTS TO [phone] Result Comment: The validity of the calculated GFR GFRAA in patients over70 years has not been determined. Clinical correlation isessential. Performed By: #### L 101.9900, L500.2500, L100.0500 ####[facility] [address] [place], [address] EST GFR - AA 160 mL/min Normal >60 [facility] Comment on above: Order Comment: FAX R ESULTS TO [phone] Result Comment: Afri can British GFR Calc Performed By: #### L 101.9900, L500.2500, L100.0500 ####[facility] [address] [place], [address] GAP 4 Low 5-15 [facility] Comment on above: Order Comment: FAX R ESULTS TO [phone] Performed By: #### L 101.9900, L500.2500, L100.0500 ####[facility] [address] [place], [address] GFR/1.73 sq M.predicted among non-blacks MDRD (S/P/Bld) [Vol rate/Area] 132 mL/min/{1.73_m2} Normal >60 [facility] Comment on above: Order Comment: FAX R ESULTS TO [phone] Result Comment: Non- GFR Calc Performed By: #### L 101.9900, L500.2500, L100.0500 ####[facility] [address] [place], [address] Glucose [Mass/Vol] 124 mg/dL High 74-106 [facility] Comment on above: Order Comment: FAX R ESULTS TO [phone] Result Comment: Fast ing Glucose result from 100 to 125 mg/dLsuggests IMPAIRED HOMEOSTASIS per A.D.A. criteria. Performed By: #### L 101.9900, L500.2500, L100.0500 ####[facility] [address] [place], [address] Potassium [Moles/Vol] 3.9 mmol/L Normal 3.5-5.1 [facility] Comment on above: Order Comment: FAX R ESULTS TO [phone] Performed By: #### L 101.9900, L500.2500, L100.0500 ####[facility] [address] [place], [address] Sodium [Moles/Vol] 137 mmol/L Normal 136-145 [facility] Comment on above: Order Comment: FAX R ESULTS TO [phone] Performed By: #### L 101.9900, L500.2500, L100.0500 ####[facility] [address] [place], [address] Urea nitrogen [Mass/Vol] 14 mg/dL Normal 7-18 [facility] Comment on above: Order Comment: FAX R ESULTS TO [phone] Performed By: #### L 101.9900, L500.2500, L100.0500 ####[facility] [address] [place], [address] CBC-Complete Blood Cnt No Di ffon 10-24-2024 Erythrocyte distribution width (RBC) [Ratio] 12.4 % Normal 11.6-14.6 [facility] Comment on above: Performed By: #### L 101.9900, L500.2500, L100.0500 ####[facility] [address] [place], [address] Hematocrit (Bld) [Volume fraction] 31.8 % Low 37-47 [facility] Comment on above: Performed By: #### L 101.9900, L500.2500, L100.0500 ####[facility] [address] [place], [address] Hemoglobin (Bld) [Mass/Vol] 10.2 g/dL Low 12.0-15.0 [facility] Comment on above: Performed By: #### L 101.9900, L500.2500, L100.0500 ####[facility] [address] [place], [address] MCH (RBC) [Entitic mass] 29.7 pg Normal 27.0-32.0 [facility] Comment on above: Performed By: #### L 101.9900, L500.2500, L100.0500 ####[facility] [address] [place], [address] MCHC (RBC) [Mass/Vol] 32.1 g/dL Normal 32-36 [facility] Comment on above: Performed By: #### L 101.9900, L500.2500, L100.0500 ####[facility] [address] [place], [address] MCV (RBC) [Entitic vol] 92.4 fL Normal 81-99 [facility] Comment on above: Performed By: #### L 101.9900, L500.2500, L100.0500 ####[facility] [address] [place], [address] Platelet mean volume (Bld) [Entitic vol] 8.9 fL Normal 6.2-12.0 [facility] Comment on above: Performed By: #### L 101.9900, L500.2500, L100.0500 ####[facility] [address] [place], [address] Platelets (Bld) [#/Vol] 246 10*3/uL Normal 150-450 [facility] Comment on above: Performed By: #### L 101.9900, L500.2500, L100.0500 ####[facility] [address] [place], [address] RBC (Bld) [#/Vol] 3.44 10*6/uL Low 4.2-5.4 [facility] Comment on above: Performed By: #### L 101.9900, L500.2500, L100.0500 ####[facility] [address] [place], [address] RDW SD 41.3 fl Normal 35.1-43.9 [facility] Comment on above: Performed By: #### L 101.9900, L500.2500, L100.0500 ####[facility] [address] [place], [address] WBC (Bld) [#/Vol] 4.8 10*3/uL Normal 4.4-11.0 [facility] Comment on above: Performed By: #### L 101.9900, L500.2500, L100.0500 ####[facility] [address] [place], [address] Erythrocyte Sed Rateon 10-24 SED RATE 52 mm/hr High 0-30 [facility] Comment on above: Performed By: #### L 101.9900, L500.2500, L100.0500 ####[facility] [address] [place], [address] Culture, Anaerobic Any Sourc grupo 10-19-2024 CUAN UNK UNK Suprapatellar Membrane - Collected in [place] No growth in 5 days. [facility] Comment on above: Performed By: #### M 100.3000, M100.2000, M600.2200, M100.4001, M600.2000 ####[facility] [address] [place], [address] Culture, Anaerobic Any Sourc grupo 10-17-2024 CUAN Results called on 10/12/248 by TAHIR to ([place])[phone]. UNK UNK No anaerobic bacteria isolated. [facility] Comment on above: Performed By: #### M 100.2900, M600.2000, L200.0400, M100.4001, M300.2000, M300.3000, M100.2000 ####[facility] [address] [place], [address] CUAN UNK UNK Tibial Membrane - collected in [place] No anaerobic bacteria isolated. [facility] Comment on above: Performed By: #### M 600.2200, M100.4001, M600.2000, M100.2000, M100.3000 ####[facility] [address] [place], [address] CUAN UNK UNK PCL Membrane - Collected in [place] No anaerobic bacteria isolated. Normal [facility] Comment on above: Performed By: #### M 600.2000, M100.2000, M100.3000, M600.2200, M100.4001 ####[facility] [address] [place], [address] Discharge Instructionon 10-05 Discharge Instruction Normal [facility] Basic Metabolic Profile (BMP )on 10-16-2024 BUN/CRE 25.3 RATIO High 10-20 [facility] Comment on above: Performed By: #### L 500.2500 ####[facility] [address] [place], [address] CA,Total 8.3 mg/dL Low 8.5-10.1 [facility] Comment on above: Performed By: #### L 500.2500 ####[facility] [address] [place], [address] Chloride [Moles/Vol] 108 mmol/L High 98-107 [facility] Comment on above: Performed By: #### L 500.2500 ####[facility] [address] [place], [address] CO2 [Moles/Vol] 29.0 mmol/L Normal 21.0-32.0 [facility] Comment on above: Performed By: #### L 500.2500 ####[facility] [address] [place], [address] Creatinine [Mass/Vol] 0.43 mg/dL Low 0.55-1.02 [facility] Comment on above: Result Comment: The validity of the calculated GFR GFRAA in patients over70 years has not been determined. Clinical correlation isessential. Performed By: #### L 500.2500 ####[facility] [address] [place], [address] ECRCL 70.08 ml/min Normal [facility] Comment on above: Performed By: #### L 500.2500 ####[facility] [address] [place], [address] EST GFR - AA 183 mL/min Normal >60 [facility] Comment on above: Result Comment: Afri can British GFR Calc Performed By: #### L 500.2500 ####[facility] [address] [place], [address] GAP 1 Low 5-15 [facility] Comment on above: Performed By: #### L 500.2500 ####[facility] [address] [place], [address] GFR/1.73 sq M.predicted among non-blacks MDRD (S/P/Bld) [Vol rate/Area] 152 mL/min/{1.73_m2} Normal >60 [facility] Comment on above: Result Comment: Non- GFR Calc Performed By: #### L 500.2500 ####[facility] [address] [place], [address] Glucose [Mass/Vol] 104 mg/dL Normal 74-106 [facility] Comment on above: Result Comment: Fast ing Glucose result from 100 to 125 mg/dLsuggests IMPAIRED HOMEOSTASIS per A.D.A. criteria. Performed By: #### L 500.2500 ####[facility] [address] [place], [address] Potassium [Moles/Vol] 4.0 mmol/L Normal 3.5-5.1 [facility] Comment on above: Performed By: #### L 500.2500 ####[facility] [address] [place], [address] Sodium [Moles/Vol] 138 mmol/L Normal 136-145 [facility] Comment on above: Performed By: #### L 500.2500 ####[facility] [address] [place], [address] Urea nitrogen [Mass/Vol] 11 mg/dL Normal 7-18 [facility] Comment on above: Performed By: #### L 500.2500 ####[facility] [address] [place], [address] CBC-Complete Blood Cnt No Di ffon 10-16-2024 Erythrocyte distribution width (RBC) [Ratio] 12.8 % Normal 11.6-14.6 [facility] Comment on above: Performed By: #### L 100.0500 ####[facility] [address] [place], [address] Hematocrit (Bld) [Volume fraction] 31.2 % Low 37-47 [facility] Comment on above: Performed By: #### L 100.0500 ####[facility] [address] [place], [address] Hemoglobin (Bld) [Mass/Vol] 10.0 g/dL Low 12.0-15.0 [facility] Comment on above: Performed By: #### L 100.0500 ####[facility] [address] [place], [address] MCH (RBC) [Entitic mass] 29.7 pg Normal 27.0-32.0 [facility] Comment on above: Performed By: #### L 100.0500 ####[facility] [address] [place], [address] MCHC (RBC) [Mass/Vol] 32.1 g/dL Normal 32-36 [facility] Comment on above: Performed By: #### L 100.0500 ####[facility] [address] [place], [address] MCV (RBC) [Entitic vol] 92.6 fL Normal 81-99 [facility] Comment on above: Performed By: #### L 100.0500 ####[facility] [address] [place], [address] Platelet mean volume (Bld) [Entitic vol] 8.4 fL Normal 6.2-12.0 [facility] Comment on above: Performed By: #### L 100.0500 ####[facility] [address] [place], [address] Platelets (Bld) [#/Vol] 249 10*3/uL Normal 150-450 [facility] Comment on above: Performed By: #### L 100.0500 ####[facility] [address] [place], [address] RBC (Bld) [#/Vol] 3.37 10*6/uL Low 4.2-5.4 [facility] Comment on above: Performed By: #### L 100.0500 ####[facility] [address] [place], [address] RDW SD 43.1 fl Normal 35.1-43.9 [facility] Comment on above: Performed By: #### L 100.0500 ####[facility] [address] [place], [address] WBC (Bld) [#/Vol] 7.4 10*3/uL Normal 4.4-11.0 [facility] Comment on above: Performed By: #### L 100.0500 ####[facility] [address] [place], [address] Wound Cultureon 10-16-2024 [facility] Comment on above: Performed By: #### M 600.2000, M100.2000, M100.3000, M600.2200, M100.4001 ####[facility] [address] [place], [address] [facility] Comment on above: Performed By: #### M 600.2200, M100.4001, M600.2000, M100.2000, M100.3000 ####[facility] [address] [place], [address] Basic Metabolic Profile (BMP )on 10-15-2024 BUN/CRE 34.1 RATIO High 10-20 [facility] Comment on above: Performed By: #### L 500.2500, L100.0500 ####[facility] [address] [place], [address] CA,Total 7.9 mg/dL Low 8.5-10.1 [facility] Comment on above: Performed By: #### L 500.2500, L100.0500 ####[facility] [address] [place], [address] Chloride [Moles/Vol] 110 mmol/L High 98-107 [facility] Comment on above: Performed By: #### L 500.2500, L100.0500 ####[facility] [address] [place], [address] CO2 [Moles/Vol] 28.0 mmol/L Normal 21.0-32.0 [facility] Comment on above: Performed By: #### L 500.2500, L100.0500 ####[facility] [address] [place], [address] Creatinine [Mass/Vol] 0.50 mg/dL Low 0.55-1.02 [facility] Comment on above: Result Comment: The validity of the calculated GFR GFRAA in patients over70 years has not been determined. Clinical correlation isessential. Performed By: #### L 500.2500, L100.0500 ####[facility] [address] [place], [address] ECRCL 70.08 ml/min Normal [facility] Comment on above: Performed By: #### L 500.2500, L100.0500 ####[facility] [address] [place], [address] EST GFR - AA 156 mL/min Normal >60 [facility] Comment on above: Result Comment: Afri can British GFR Calc Performed By: #### L 500.2500, L100.0500 ####[facility] [address] [place], [address] GAP 2 Low 5-15 [facility] Comment on above: Performed By: #### L 500.2500, L100.0500 ####[facility] [address] [place], [address] GFR/1.73 sq M.predicted among non-blacks MDRD (S/P/Bld) [Vol rate/Area] 129 mL/min/{1.73_m2} Normal >60 [facility] Comment on above: Result Comment: Non- GFR Calc Performed By: #### L 500.2500, L100.0500 ####[facility] [address] [place], [address] Glucose [Mass/Vol] 94 mg/dL Normal 74-106 [facility] Comment on above: Performed By: #### L 500.2500, L100.0500 ####[facility] [address] [place], [address] Potassium [Moles/Vol] 3.8 mmol/L Normal 3.5-5.1 [facility] Comment on above: Performed By: #### L 500.2500, L100.0500 ####[facility] [address] [place], [address] Sodium [Moles/Vol] 140 mmol/L Normal 136-145 [facility] Comment on above: Performed By: #### L 500.2500, L100.0500 ####[facility] [address] [place], [address] Urea nitrogen [Mass/Vol] 17 mg/dL Normal 7-18 [facility] Comment on above: Performed By: #### L 500.2500, L100.0500 ####[facility] [address] [place], [address] Body Fluid Culton 10-15-2024 BFC Normal [facility] Comment on above: Performed By: #### M 100.2900, M600.2000, L200.0400, M100.4001, M300.2000, M300.3000, M100.2000 ####[facility] [address] [place], [address] CBC-Complete Blood Cnt No Di ffon 10-15-2024 Erythrocyte distribution width (RBC) [Ratio] 12.7 % Normal 11.6-14.6 [facility] Comment on above: Performed By: #### L 500.2500, L100.0500 ####[facility] [address] [place], [address] Hematocrit (Bld) [Volume fraction] 35.0 % Low 37-47 [facility] Comment on above: Performed By: #### L 500.2500, L100.0500 ####[facility] [address] [place], [address] Hemoglobin (Bld) [Mass/Vol] 10.9 g/dL Low 12.0-15.0 [facility] Comment on above: Performed By: #### L 500.2500, L100.0500 ####[facility] [address] [place], [address] MCH (RBC) [Entitic mass] 28.8 pg Normal 27.0-32.0 [facility] Comment on above: Performed By: #### L 500.2500, L100.0500 ####[facility] [address] [place], [address] MCHC (RBC) [Mass/Vol] 31.1 g/dL Low 32-36 [facility] Comment on above: Performed By: #### L 500.2500, L100.0500 ####[facility] [address] [place], [address] MCV (RBC) [Entitic vol] 92.6 fL Normal 81-99 [facility] Comment on above: Performed By: #### L 500.2500, L100.0500 ####[facility] [address] [place], [address] Platelet mean volume (Bld) [Entitic vol] 8.4 fL Normal 6.2-12.0 [facility] Comment on above: Performed By: #### L 500.2500, L100.0500 ####[facility] [address] [place], [address] Platelets (Bld) [#/Vol] 288 10*3/uL Normal 150-450 [facility] Comment on above: Performed By: #### L 500.2500, L100.0500 ####[facility] [address] [place], [address] RBC (Bld) [#/Vol] 3.78 10*6/uL Low 4.2-5.4 [facility] Comment on above: Performed By: #### L 500.2500, L100.0500 ####[facility] [address] [place], [address] RDW SD 43.1 fl Normal 35.1-43.9 [facility] Comment on above: Performed By: #### L 500.2500, L100.0500 ####[facility] [address] [place], [address] WBC (Bld) [#/Vol] 9.0 10*3/uL Normal 4.4-11.0 [facility] Comment on above: Performed By: #### L 500.2500, L100.0500 ####[facility] [address] [place], [address] Gram Stainon 10-15-2024 GS UNK UNK PCL Membrane - Collected in [place] Gram Stain 4+ White Blood Cells 1+ Gram positive cocci in chains 4+ Red Blood Cells Normal [facility] Comment on above: Performed By: #### M 600.2000, M100.2000, M100.3000, M600.2200, M100.4001 ####[facility] [address] [place], [address] GS UNK UNK Tibial Membrane - collected in [place] Gram Stain 1+ Gram positive cocci in chains 4+ White Blood Cells 4+ Red Blood Cells Normal [facility] Comment on above: Performed By: #### M 600.2200, M100.4001, M600.2000, M100.2000, M100.3000 ####[facility] [address] [place], [address] GS UNK UNK Suprapatellar Membrane - Collected in [place] Gram Stain No organisms seen 4+ Red Blood Cells 4+ White Blood Cells Normal [facility] Comment on above: Performed By: #### M 100.3000, M100.2000, M600.2200, M100.4001, M600.2000 ####[facility] [address] [place], [address] Wound Cultureon 10-15-2024 WC UNK UNK Suprapatellar Membrane - Collected in [place] No growth aerobically. Normal [facility] Comment on above: Performed By: #### M 100.3000, M100.2000, M600.2200, M100.4001, M600.2000 ####[facility] [address] [place], [address] Basic Metabolic Profile (BMP )on 10-14-2024 BUN/CRE 35.0 RATIO High 10-20 [facility] Comment on above: Performed By: #### L 500.2500, L100.0500 ####[facility] [address] [place], [address] CA,Total 8.2 mg/dL Low 8.5-10.1 [facility] Comment on above: Performed By: #### L 500.2500, L100.0500 ####[facility] [address] [place], [address] Chloride [Moles/Vol] 107 mmol/L Normal 98-107 [facility] Comment on above: Performed By: #### L 500.2500, L100.0500 ####[facility] [address] [place], [address] CO2 [Moles/Vol] 28.0 mmol/L Normal 21.0-32.0 [facility] Comment on above: Performed By: #### L 500.2500, L100.0500 ####[facility] [address] [place], [address] Creatinine [Mass/Vol] 0.43 mg/dL Low 0.55-1.02 [facility] Comment on above: Result Comment: The validity of the calculated GFR GFRAA in patients over70 years has not been determined. Clinical correlation isessential. Performed By: #### L 500.2500, L100.0500 ####[facility] [address] [place], [address] ECRCL 70.08 ml/min Normal [facility] Comment on above: Performed By: #### L 500.2500, L100.0500 ####[facility] [address] [place], [address] EST GFR - AA 186 mL/min Normal >60 [facility] Comment on above: Result Comment: Afri can [place] GFR Calc Performed By: #### L 500.2500, L100.0500 ####[facility] [address] [place], [address] GAP 3 Low 5-15 [facility] Comment on above: Performed By: #### L 500.2500, L100.0500 ####[facility] [address] [place], [address] GFR/1.73 sq M.predicted among non-blacks MDRD (S/P/Bld) [Vol rate/Area] 154 mL/min/{1.73_m2} Normal >60 [facility] Comment on above: Result Comment: Non- GFR Calc Performed By: #### L 500.2500, L100.0500 ####[facility] [address] [place], [address] Glucose [Mass/Vol] 109 mg/dL High 74-106 [facility] Comment on above: Result Comment: Fast ing Glucose result from 100 to 125 mg/dLsuggests IMPAIRED HOMEOSTASIS per A.D.A. criteria. Performed By: #### L 500.2500, L100.0500 ####[facility] [address] [place], [address] Potassium [Moles/Vol] 4.1 mmol/L Normal 3.5-5.1 [facility] Comment on above: Performed By: #### L 500.2500, L100.0500 ####[facility] [address] [place], [address] Sodium [Moles/Vol] 138 mmol/L Normal 136-145 [facility] Comment on above: Performed By: #### L 500.2500, L100.0500 ####[facility] [address] [place], [address] Urea nitrogen [Mass/Vol] 15 mg/dL Normal 7-18 [facility] Comment on above: Performed By: #### L 500.2500, L100.0500 ####[facility] [address] [place], [address] CBC-Complete Blood Cnt No Di ffon 10-14-2024 Erythrocyte distribution width (RBC) [Ratio] 12.5 % Normal 11.6-14.6 [facility] Comment on above: Performed By: #### L 500.2500, L100.0500 ####[facility] [address] [place], [address] Hematocrit (Bld) [Volume fraction] 33.8 % Low 37-47 [facility] Comment on above: Performed By: #### L 500.2500, L100.0500 ####[facility] [address] [place], [address] Hemoglobin (Bld) [Mass/Vol] 11.0 g/dL Low 12.0-15.0 [facility] Comment on above: Performed By: #### L 500.2500, L100.0500 ####[facility] [address] [place], [address] MCH (RBC) [Entitic mass] 29.8 pg Normal 27.0-32.0 [facility] Comment on above: Performed By: #### L 500.2500, L100.0500 ####[facility] [address] [place], [address] MCHC (RBC) [Mass/Vol] 32.5 g/dL Normal 32-36 [facility] Comment on above: Performed By: #### L 500.2500, L100.0500 ####[facility] [address] [place], [address] MCV (RBC) [Entitic vol] 91.6 fL Normal 81-99 [facility] Comment on above: Performed By: #### L 500.2500, L100.0500 ####[facility] [address] [place], [address] Platelet mean volume (Bld) [Entitic vol] 8.6 fL Normal 6.2-12.0 [facility] Comment on above: Performed By: #### L 500.2500, L100.0500 ####[facility] [address] [place], [address] Platelets (Bld) [#/Vol] 279 10*3/uL Normal 150-450 [facility] Comment on above: Performed By: #### L 500.2500, L100.0500 ####[facility] [address] [place], [address] RBC (Bld) [#/Vol] 3.69 10*6/uL Low 4.2-5.4 [facility] Comment on above: Performed By: #### L 500.2500, L100.0500 ####[facility] [address] [place], [address] RDW SD 41.9 fl Normal 35.1-43.9 [facility] Comment on above: Performed By: #### L 500.2500, L100.0500 ####[facility] [address] [place], [address] WBC (Bld) [#/Vol] 12.7 10*3/uL High 4.4-11.0 [facility] Comment on above: Performed By: #### L 500.2500, L100.0500 ####[facility] [address] [place], [address] Consultation - Infectious Dx on 10-14-2024 Consultation - Infectious Dx Normal [facility] Bedside Glucoseon 10-13-2024 FINGERSTICK GLU 85 mg/dL Normal 74-106 [facility] Comment on above: Result Comment: ROXANA HART OF PATIENT CARE PER NURSING PROTOCOL Performed By: #### L 501.080 ####[facility] [address] [place], [address] Consultation - Hospitaliston 10-13-2024 Consultation - Hospitalist Normal [facility] Knee 1 or 2 Viewson 10-13-19 25 Knee 1 or 2 Views Normal [facility] MR/ZKVYYICY1kx 10-13-2024 MR/POSTOPAN2 Normal [facility] Operative Reporton Operative Report Normal [facility] Synovial Fluid RBC, WBC AND Diffon 10-13-2024 PATH COM/SYFL Reviewed Normal [facility] Comment on above: Result Comment: Nega tive for malignant cells.ACUTE INFLAMMAITONClinical correlation necessary.Kg Caruso M.D. 10/13/24 AMENDED REPORT 10/13/24958 PATH COM/SYFL previously reported as: May follow Performed By: #### M 100.2900, M600.2000, L200.0400, M100.4001, M300.2000, M300.3000, M100.2000 ####[facility] [address] [place], [address] Basic Metabolic Profile (BMP )on 10-12-2024 BUN/CRE 41.2 RATIO High 10-20 [facility] Comment on above: Order Comment: ADD O N BMPOrder Date: 10/11/24Order Info: [id number] - CRP Performed By: #### L 500.2500 ####[facility] [address] [place], [address] CA,Total 9.3 mg/dL Normal 8.5-10.1 [facility] Comment on above: Order Comment: ADD O N BMPOrder Date: 10/11/24Order Info: [id number] - CRP Performed By: #### L 500.2500 ####[facility] [address] [place], [address] Chloride [Moles/Vol] 105 mmol/L Normal 98-107 [facility] Comment on above: Order Comment: ADD O N BMPOrder Date: 10/11/24Order Info: [id number] - CRP Performed By: #### L 500.2500 ####[facility] [address] [place], [address] CO2 [Moles/Vol] 28.0 mmol/L Normal 21.0-32.0 [facility] Comment on above: Order Comment: ADD O N BMPOrder Date: 10/11/24Order Info: [id number] - CRP Performed By: #### L 500.2500 ####[facility] [address] [place], [address] Creatinine [Mass/Vol] 0.58 mg/dL Normal 0.55-1.02 [facility] Comment on above: Order Comment: ADD O N BMPOrder Date: 10/11/24Order Info: [id number] - CRP Result Comment: The validity of the calculated GFR GFRAA in patients over70 years has not been determined. Clinical correlation isessential. Performed By: #### L 500.2500 ####[facility] [address] [place], [address] EST GFR - AA 131 mL/min Normal >60 [facility] Comment on above: Order Comment: ADD O N BMPOrder Date: 10/11/24Order Info: [id number] - CRP Result Comment: Afri can British GFR Calc Performed By: #### L 500.2500 ####[facility] [address] [place], [address] GAP 8 Normal 5-15 [facility] Comment on above: Order Comment: ADD O N BMPOrder Date: 10/11/24Order Info: [id number] - CRP Performed By: #### L 500.2500 ####[facility] [address] [place], [address] GFR/1.73 sq M.predicted among non-blacks MDRD (S/P/Bld) [Vol rate/Area] 108 mL/min/{1.73_m2} Normal >60 [facility] Comment on above: Order Comment: ADD O N BMPOrder Date: 10/11/24Order Info: [id number] - CRP Result Comment: Non- GFR Calc Performed By: #### L 500.2500 ####[facility] [address] [place], [address] Glucose [Mass/Vol] 77 mg/dL Normal 74-106 [facility] Comment on above: Order Comment: ADD O N BMPOrder Date: 10/11/24Order Info: [id number] - CRP Performed By: #### L 500.2500 ####[facility] [address] [place], [address] Potassium [Moles/Vol] 3.7 mmol/L Normal 3.5-5.1 [facility] Comment on above: Order Comment: ADD O N BMPOrder Date: 10/11/24Order Info: [id number] - CRP Performed By: #### L 500.2500 ####[facility] [address] [place], [address] Sodium [Moles/Vol] 140 mmol/L Normal 136-145 [facility] Comment on above: Order Comment: ADD O N BMPOrder Date: 10/11/24Order Info: [id number] - CRP Performed By: #### L 500.2500 ####[facility] [address] [place], [address] Urea nitrogen [Mass/Vol] 24 mg/dL High 7-18 [facility] Comment on above: Order Comment: ADD O N BMPOrder Date: 10/11/24Order Info: [id number] - CRP Performed By: #### L 500.2500 ####[facility] [address] [place], [address] CBC W/Diff, Automatedon -0 PATH REV Reviewed Normal [facility] Comment on above: Order Comment: Order Date: 10/11/24Order Info: [id number] - CBCDOrder Info: [id number] - SED Result Comment: Neut rophilic leukocytosis with left shift.Clinical correlation necessary.Kg Caruso M.D. 10/12/24 AMENDED REPORT 10/12/24 1409 PATH REV previously reported as: February Performed By: #### L 100.0100 ####[facility] [address] [place], [address] Gram Stainon 10-12-2024 GS Results called on 10/12/24-1528 by TAHIR to ([place])[phone]. UNK UNK Centrifuged Specimen? Culture performed on centrifuged specimen Gram Stain Rare Gram positive cocci 4+ White Blood Cells Normal [facility] Comment on above: Performed By: #### M 100.2900, M600.2000, L200.0400, M100.4001, M300.2000, M300.3000, M100.2000 ####[facility] [address] [place], [address] MR/PAT.ANEon 10-12-2024 MR/PAT.ANE Normal [facility] Magnesiumon 10-12-2024 Magnesium [Mass/Vol] 2.4 mg/dL Normal 1.6-2.6 [facility] Comment on above: Performed By: #### L 501.5200 ####[facility] [address] [place], [address] CRPon 10-11-2024 C-REACTIVE PROT 144.00 mg/L High 0.0-3.0 [facility] Comment on above: Order Comment: Order Date: 10/11/24Order Info: [id number] - CRP Result Comment: C-Re active Protein (CRP) provides useful information for thediagnosis, therapy and monitoring of inflammatory processesand associated diseases. For the evaluation of Relative Riskfor Cardiovascular Disease, a High Sensitivity CRP (HSCRP)should be ordered. Performed By: #### L 501.6710 ####[facility] [address] [place], [address] Erythrocyte Sed Rateon 10-11 SED RATE 57 mm/hr High 0-30 [facility] Comment on above: Order Comment: Order Date: 10/11/24Order Info: [id number] - CBCDOrder Info: [id number] - SED Performed By: #### L 101.9900 ####[facility] [address] [place], [address] Venous Duplex US, Unilateral on 10-11-2024 Venous Duplex US, Unilateral Normal [facility] Basic Metabolic Profile (BMP )on 10-05-2024 BUN/CRE 22.5 RATIO High 10-20 [facility] Comment on above: Performed By: #### L 500.3400, L500.2500, L100.0100, L300.4310, L501.2450, L300.3900 ####[facility] [address] [place], [address] CA,Total 8.5 mg/dL Normal 8.5-10.1 [facility] Comment on above: Performed By: #### L 500.3400, L500.2500, L100.0100, L300.4310, L501.2450, L300.3900 ####[facility] [address] [place], [address] Chloride [Moles/Vol] 101 mmol/L Normal 98-107 [facility] Comment on above: Performed By: #### L 500.3400, L500.2500, L100.0100, L300.4310, L501.2450, L300.3900 ####[facility] [address] [place], [address] CO2 [Moles/Vol] 27.0 mmol/L Normal 21.0-32.0 [facility] Comment on above: Performed By: #### L 500.3400, L500.2500, L100.0100, L300.4310, L501.2450, L300.3900 ####[facility] [address] [place], [address] Creatinine [Mass/Vol] 0.67 mg/dL Normal 0.55-1.02 [facility] Comment on above: Result Comment: The validity of the calculated GFR GFRAA in patients over70 years has not been determined. Clinical correlation isessential. Performed By: #### L 500.3400, L500.2500, L100.0100, L300.4310, L501.2450, L300.3900 ####[facility] [address] [place], [address] EST GFR - AA 112 mL/min Normal >60 [facility] Comment on above: Result Comment: Afri can British GFR Calc Performed By: #### L 500.3400, L500.2500, L100.0100, L300.4310, L501.2450, L300.3900 ####[facility] [address] [place], [address] GAP 8 Normal 5-15 [facility] Comment on above: Performed By: #### L 500.3400, L500.2500, L100.0100, L300.4310, L501.2450, L300.3900 ####[facility] [address] [place], [address] GFR/1.73 sq M.predicted among non-blacks MDRD (S/P/Bld) [Vol rate/Area] 92 mL/min/{1.73_m2} Normal >60 [facility] Comment on above: Result Comment: Non- GFR Calc Performed By: #### L 500.3400, L500.2500, L100.0100, L300.4310, L501.2450, L300.3900 ####[facility] [address] [place], [address] Glucose [Mass/Vol] 151 mg/dL High 74-106 [facility] Comment on above: Result Comment: Fast ing Glucose result greater than or equal to 126 mg/dLsuggests DIABETES MELLITUS per A.D.A. criteria. Performed By: #### L 500.3400, L500.2500, L100.0100, L300.4310, L501.2450, L300.3900 ####[facility] [address] [place], [address] Potassium [Moles/Vol] 3.3 mmol/L Low 3.5-5.1 [facility] Comment on above: Performed By: #### L 500.3400, L500.2500, L100.0100, L300.4310, L501.2450, L300.3900 ####[facility] [address] [place], [address] Sodium [Moles/Vol] 136 mmol/L Normal 136-145 [facility] Comment on above: Performed By: #### L 500.3400, L500.2500, L100.0100, L300.4310, L501.2450, L300.3900 ####[facility] [address] [place], [address] Urea nitrogen [Mass/Vol] 15 mg/dL Normal 7-18 [facility] Comment on above: Performed By: #### L 500.3400, L500.2500, L100.0100, L300.4310, L501.2450, L300.3900 ####[facility] [address] [place], [address] CBC W/Diff, Automatedon 01-0 -2024 Absolute Lymph 0.37 X10 3/uL Low 0.83-4.51 [facility] Comment on above: Performed By: #### L 500.3400, L500.2500, L100.0100, L300.4310, L501.2450, L300.3900 ####[facility] [address] [place], [address] Absolute Neut 5.9 X10 3/uL Normal 2.0-7.7 [facility] Comment on above: Performed By: #### L 500.3400, L500.2500, L100.0100, L300.4310, L501.2450, L300.3900 ####[facility] [address] [place], [address] Basophils/100 WBC (Bld) 0.1 % Normal 0-1 [facility] Comment on above: Performed By: #### L 500.3400, L500.2500, L100.0100, L300.4310, L501.2450, L300.3900 ####[facility] [address] [place], [address] Eosinophils/100 WBC (Bld) 0.0 % Normal 0-5 [facility] Comment on above: Performed By: #### L 500.3400, L500.2500, L100.0100, L300.4310, L501.2450, L300.3900 ####[facility] [address] [place], [address] Erythrocyte distribution width (RBC) [Ratio] 12.1 % Normal 11.6-14.6 [facility] Comment on above: Performed By: #### L 500.3400, L500.2500, L100.0100, L300.4310, L501.2450, L300.3900 ####[facility] [address] [place], [address] Hematocrit (Bld) [Volume fraction] 39.5 % Normal 37-47 [facility] Comment on above: Performed By: #### L 500.3400, L500.2500, L100.0100, L300.4310, L501.2450, L300.3900 ####[facility] [address] [place], [address] Hemoglobin (Bld) [Mass/Vol] 13.1 g/dL Normal 12.0-15.0 [facility] Comment on above: Performed By: #### L 500.3400, L500.2500, L100.0100, L300.4310, L501.2450, L300.3900 ####[facility] [address] [place], [address] IG% 0.300 Normal 0.0-0.9 [facility] Comment on above: Result Comment: IG% - Immature Granulocytes (promyelocytes, myelocytes andmetamyelocytes) > 1% indicates that a LEFT SHIFT is Present. Performed By: #### L 500.3400, L500.2500, L100.0100, L300.4310, L501.2450, L300.3900 ####[facility] [address] [place], [address] Lymphocytes/100 WBC (Bld) 5.4 % Low 19-41 [facility] Comment on above: Performed By: #### L 500.3400, L500.2500, L100.0100, L300.4310, L501.2450, L300.3900 ####[facility] [address] [place], [address] MCH (RBC) [Entitic mass] 29.8 pg Normal 27.0-32.0 [facility] Comment on above: Performed By: #### L 500.3400, L500.2500, L100.0100, L300.4310, L501.2450, L300.3900 ####[facility] [address] [place], [address] MCHC (RBC) [Mass/Vol] 33.2 g/dL Normal 32-36 [facility] Comment on above: Performed By: #### L 500.3400, L500.2500, L100.0100, L300.4310, L501.2450, L300.3900 ####[facility] [address] [place], [address] MCV (RBC) [Entitic vol] 90.0 fL Normal 81-99 [facility] Comment on above: Performed By: #### L 500.3400, L500.2500, L100.0100, L300.4310, L501.2450, L300.3900 ####[facility] [address] [place], [address] Monocytes/100 WBC (Bld) 8.5 % Normal 0-10 [facility] Comment on above: Performed By: #### L 500.3400, L500.2500, L100.0100, L300.4310, L501.2450, L300.3900 ####[facility] [address] [place], [address] Neutrophils/100 WBC (Bld) 85.7 % High 47-70 [facility] Comment on above: Performed By: #### L 500.3400, L500.2500, L100.0100, L300.4310, L501.2450, L300.3900 ####[facility] [address] [place], [address] Nucleated RBC (Bld) [#/Vol] 0 10*3/uL Normal 0-5 [facility] Comment on above: Performed By: #### L 500.3400, L500.2500, L100.0100, L300.4310, L501.2450, L300.3900 ####[facility] [address] [place], [address] Platelet mean volume (Bld) [Entitic vol] 9.4 fL Normal 6.2-12.0 [facility] Comment on above: Performed By: #### L 500.3400, L500.2500, L100.0100, L300.4310, L501.2450, L300.3900 ####[facility] [address] [place], [address] Platelets (Bld) [#/Vol] 113 10*3/uL Low 150-450 [facility] Comment on above: Performed By: #### L 500.3400, L500.2500, L100.0100, L300.4310, L501.2450, L300.3900 ####[facility] [address] [place], [address] RBC (Bld) [#/Vol] 4.39 10*6/uL Normal 4.2-5.4 [facility] Comment on above: Performed By: #### L 500.3400, L500.2500, L100.0100, L300.4310, L501.2450, L300.3900 ####[facility] [address] [place], [address] RDW SD 40.5 fl Normal 35.1-43.9 [facility] Comment on above: Performed By: #### L 500.3400, L500.2500, L100.0100, L300.4310, L501.2450, L300.3900 ####[facility] [address] [place], [address] WBC (Bld) [#/Vol] 6.9 10*3/uL Normal 4.4-11.0 [facility] Comment on above: Performed By: #### L 500.3400, L500.2500, L100.0100, L300.4310, L501.2450, L300.3900 ####[facility] [address] [place], [address] Emergency Department Summary on 10-05-2024 Emergency Department Summary Normal [facility] Lipaseon 10-05-2024 Lipase [Catalytic activity/Vol] 21 U/L Normal 13-75 [facility] Comment on above: Result Comment: Lianna dawkins note:LIPASE revised reference range effective 23.New Lipase methodology. Expected to produce lower valuesthan the previous assay method.NEW Reference Range: 13 - 75 U/L Performed By: #### L 500.3400, L500.2500, L100.0100, L300.4310, L501.2450, L300.3900 ####[facility] [address] [place], [address] Liver Profileon 10-05-2024 Albumin [Mass/Vol] 2.7 g/dL Low 3.2-5.0 [facility] Comment on above: Performed By: #### L 500.3400, L500.2500, L100.0100, L300.4310, L501.2450, L300.3900 ####[facility] [address] [place], [address] ALK P 127 U/L High 45-117 [facility] Comment on above: Performed By: #### L 500.3400, L500.2500, L100.0100, L300.4310, L501.2450, L300.3900 ####[facility] [address] [place], [address] ALT [Catalytic activity/Vol] 146 U/L High 13-56 [facility] Comment on above: Performed By: #### L 500.3400, L500.2500, L100.0100, L300.4310, L501.2450, L300.3900 ####[facility] [address] [place], [address] AST [Catalytic activity/Vol] 160 U/L High 15-37 [facility] Comment on above: Performed By: #### L 500.3400, L500.2500, L100.0100, L300.4310, L501.2450, L300.3900 ####[facility] [address] [place], [address] Bilirubin [Mass/Vol] 0.70 mg/dL Normal 0.20-1.00 [facility] Comment on above: Result Comment: For patients on eltrombopag therapy, use of Dimension Connelly TBIL is not recommended. Performed By: #### L 500.3400, L500.2500, L100.0100, L300.4310, L501.2450, L300.3900 ####[facility] [address] [place], [address] Bilirubin.direct [Mass/Vol] 0.32 mg/dL High 0.00-0.30 [facility] Comment on above: Performed By: #### L 500.3400, L500.2500, L100.0100, L300.4310, L501.2450, L300.3900 ####[facility] [address] [place], [address] Globulin (S) [Mass/Vol] 3.8 g/dL Normal 2.2-4.2 [facility] Comment on above: Performed By: #### L 500.3400, L500.2500, L100.0100, L300.4310, L501.2450, L300.3900 ####[facility] [address] [place], [address] T PROT 6.5 g/dL Normal 6.4-8.2 [facility] Comment on above: Performed By: #### L 500.3400, L500.2500, L100.0100, L300.4310, L501.2450, L300.3900 ####[facility] [address] [place], [address] M100.678on 10-05-2024 M100.678 Normal [facility] Comment on above: Performed By: #### L 400.0001, M100.678 ####[facility] [address] [place], [address] Partial Thromboplast Timeon 10-05-2024 aPTT Coag (Bld) [Time] 34.6 s Normal 24.1-36.2 [facility] Comment on above: Performed By: #### L 500.3400, L500.2500, L100.0100, L300.4310, L501.2450, L300.3900 ####[facility] [address] [place], [address] Prothrombin Time w/INRon INR Coag (PPP) [Relative time] 1.3 {INR} Normal [facility] Comment on above: Performed By: #### L 500.3400, L500.2500, L100.0100, L300.4310, L501.2450, L300.3900 ####[facility] [address] [place], [address] PT Coag (PPP) [Time] 16.7 s High 11.7-14.9 [facility] Comment on above: Performed By: #### L 500.3400, L500.2500, L100.0100, L300.4310, L501.2450, L300.3900 ####[facility] [address] [place], [address] Urinalysis, Completeon 10-05 CA OX CRYSTAL 3+ /hpf Normal [facility] Comment on above: Order Comment: COLLE CTED IN HATCLEAN CATCH Performed By: #### L 400.0001, M100.678 ####[facility] [address] [place], [address] RBC 0-5 SEEN Normal 0-5 [facility] Comment on above: Order Comment: COLLE CTED IN HATCLEAN CATCH Performed By: #### L 400.0001, M100.678 ####[facility] [address] [place], [address] WBC 0-5 SEEN Normal 0-5 [facility] Comment on above: Order Comment: COLLE CTED IN HATCLEAN CATCH Performed By: #### L 400.0001, M100.678 ####[facility] [address] [place], [address] BACTERIA 0 SEEN Normal None Seen [facility] Comment on above: Order Comment: COLLE CTED IN HATCLEAN CATCH Performed By: #### L 400.0001, M100.678 ####[facility] [address] [place], [address] EPI,SQUAMOUS 0 SEEN Normal 5-10 [facility] Comment on above: Order Comment: COLLE CTED IN HATCLEAN CATCH Performed By: #### L 400.0001, M100.678 ####[facility] [address] [place], [address] Mucus Ql (Urine sed) 0 SEEN Normal [facility] Comment on above: Order Comment: COLLE CTED IN HATCLEAN CATCH Performed By: #### L 400.0001, M1.678 ####[facility] [address] [place], [address] 12 Lead EKGon 10-03-2024 12 Lead EKG Normal [facility] 12 Lead EKG Normal [facility] Basic Metabolic Profile (BMP )on 10-03-2024 BUN/CRE 16.8 RATIO Normal 10-20 [facility] Comment on above: Order Comment: 1Y Performed By: #### L 501.5425, L500.2500, L100.0100 ####[facility] [address] [place], [address] CA,Total 9.1 mg/dL Normal 8.5-10.1 [facility] Comment on above: Order Comment: 1Y Performed By: #### L 501.5425, L500.2500, L100.0100 ####[facility] [address] [place], [address] Chloride [Moles/Vol] 108 mmol/L High 98-107 [facility] Comment on above: Order Comment: 1Y Performed By: #### L 501.5425, L500.2500, L100.0100 ####[facility] [address] [place], [address] CO2 [Moles/Vol] 27.0 mmol/L Normal 21.0-32.0 [facility] Comment on above: Order Comment: 1Y Performed By: #### L 501.5425, L500.2500, L100.0100 ####[facility] [address] [place], [address] Creatinine [Mass/Vol] 0.65 mg/dL Normal 0.55-1.02 [facility] Comment on above: Order Comment: 1Y Result Comment: The validity of the calculated GFR GFRAA in patients over70 years has not been determined. Clinical correlation isessential. Performed By: #### L 501.5425, L500.2500, L100.0100 ####[facility] [address] [place], [address] ECRCL 68.84 ml/min Normal [facility] Comment on above: Order Comment: 1Y Performed By: #### L 501.5425, L500.2500, L100.0100 ####[facility] [address] [place], [address] EST GFR - AA 114 mL/min Normal >60 [facility] Comment on above: Order Comment: 1Y Result Comment: Afri can British GFR Calc Performed By: #### L 501.5425, L500.2500, L100.0100 ####[facility] [address] [place], [address] GAP 3 Low 5-15 [facility] Comment on above: Order Comment: 1Y Performed By: #### L 501.5425, L500.2500, L100.0100 ####[facility] [address] [place], [address] GFR/1.73 sq M.predicted among non-blacks MDRD (S/P/Bld) [Vol rate/Area] 94 mL/min/{1.73_m2} Normal >60 [facility] Comment on above: Order Comment: 1Y Result Comment: Non- GFR Calc Performed By: #### L 501.5425, L500.2500, L100.0100 ####[facility] [address] [place], [address] Glucose [Mass/Vol] 123 mg/dL High 74-106 [facility] Comment on above: Order Comment: 1Y Result Comment: Fast ing Glucose result from 100 to 125 mg/dLsuggests IMPAIRED HOMEOSTASIS per A.D.A. criteria. Performed By: #### L 501.5425, L500.2500, L100.0100 ####[facility] [address] [place], [address] Potassium [Moles/Vol] 3.9 mmol/L Normal 3.5-5.1 [facility] Comment on above: Order Comment: 1Y Result Comment: Slig ht Hemolysis, Result may be falsely increased. Performed By: #### L 501.5425, L500.2500, L100.0100 ####[facility] [address] [place], [address] Sodium [Moles/Vol] 138 mmol/L Normal 136-145 [facility] Comment on above: Order Comment: 1Y Performed By: #### L 501.5425, L500.2500, L100.0100 ####[facility] [address] [place], [address] Urea nitrogen [Mass/Vol] 11 mg/dL Normal 7-18 [facility] Comment on above: Order Comment: 1Y Performed By: #### L 501.5425, L500.2500, L100.0100 ####[facility] [address] [place], [address] CBC W/Diff, Automatedon 12-3 0-2024 Absolute Lymph 0.41 X10 3/uL Low 0.83-4.51 [facility] Comment on above: Performed By: #### L 501.5425, L500.2500, L100.0100 ####[facility] [address] [place], [address] Absolute Neut 5.1 X10 3/uL Normal 2.0-7.7 [facility] Comment on above: Performed By: #### L 501.5425, L500.2500, L100.0100 ####[facility] [address] [place], [address] Basophils/100 WBC (Bld) 0.3 % Normal 0-1 [facility] Comment on above: Performed By: #### L 501.5425, L500.2500, L100.0100 ####[facility] [address] [place], [address] Eosinophils/100 WBC (Bld) 0.8 % Normal 0-5 [facility] Comment on above: Performed By: #### L 501.5425, L500.2500, L100.0100 ####[facility] [address] [place], [address] Erythrocyte distribution width (RBC) [Ratio] 12.2 % Normal 11.6-14.6 [facility] Comment on above: Performed By: #### L 501.5425, L500.2500, L100.0100 ####[facility] [address] [place], [address] Hematocrit (Bld) [Volume fraction] 41.5 % Normal 37-47 [facility] Comment on above: Performed By: #### L 501.5425, L500.2500, L100.0100 ####[facility] [address] [place], [address] Hemoglobin (Bld) [Mass/Vol] 13.9 g/dL Normal 12.0-15.0 [facility] Comment on above: Performed By: #### L 501.5425, L500.2500, L100.0100 ####[facility] [address] [place], [address] IG% 0.300 Normal 0.0-0.9 [facility] Comment on above: Result Comment: IG% - Immature Granulocytes (promyelocytes, myelocytes andmetamyelocytes) > 1% indicates that a LEFT SHIFT is Present. Performed By: #### L 501.5425, L500.2500, L100.0100 ####[facility] [address] [place], [address] Lymphocytes/100 WBC (Bld) 6.8 % Low 19-41 [facility] Comment on above: Performed By: #### L 501.5425, L500.2500, L100.0100 ####[facility] [address] [place], [address] MCH (RBC) [Entitic mass] 30.2 pg Normal 27.0-32.0 [facility] Comment on above: Performed By: #### L 501.5425, L500.2500, L100.0100 ####[facility] [address] [place], [address] MCHC (RBC) [Mass/Vol] 33.5 g/dL Normal 32-36 [facility] Comment on above: Performed By: #### L 501.5425, L500.2500, L100.0100 ####[facility] [address] [place], [address] MCV (RBC) [Entitic vol] 90.2 fL Normal 81-99 [facility] Comment on above: Performed By: #### L 501.5425, L500.2500, L100.0100 ####[facility] [address] [place], [address] Monocytes/100 WBC (Bld) 8.2 % Normal 0-10 [facility] Comment on above: Performed By: #### L 501.5425, L500.2500, L100.0100 ####[facility] [address] [place], [address] Neutrophils/100 WBC (Bld) 83.6 % High 47-70 [facility] Comment on above: Performed By: #### L 501.5425, L500.2500, L100.0100 ####[facility] [address] [place], [address] Nucleated RBC (Bld) [#/Vol] 0 10*3/uL Normal 0-5 [facility] Comment on above: Performed By: #### L 501.5425, L500.2500, L100.0100 ####[facility] [address] [place], [address] Platelet mean volume (Bld) [Entitic vol] 9.1 fL Normal 6.2-12.0 [facility] Comment on above: Performed By: #### L 501.5425, L500.2500, L100.0100 ####[facility] [address] [place], [address] Platelets (Bld) [#/Vol] 113 10*3/uL Low 150-450 [facility] Comment on above: Performed By: #### L 501.5425, L500.2500, L100.0100 ####[facility] [address] [place], [address] RBC (Bld) [#/Vol] 4.60 10*6/uL Normal 4.2-5.4 [facility] Comment on above: Performed By: #### L 501.5425, L500.2500, L100.0100 ####[facility] [address] [place], [address] RDW SD 40.1 fl Normal 35.1-43.9 [facility] Comment on above: Performed By: #### L 501.5425, L500.2500, L100.0100 ####[facility] [address] [place], [address] WBC (Bld) [#/Vol] 6.1 10*3/uL Normal 4.4-11.0 [facility] Comment on above: Performed By: #### L 501.5425, L500.2500, L100.0100 ####[facility] [address] [place], [address] Chest 1 View (Portable)on Chest 1 View (Portable) Normal [facility] Emergency Department Summary on 10-03-2024 Emergency Department Summary Normal [facility] L501.4020on 10-03-2024 TROPONIN-I HS 13 pg/mL Normal 3.0-54.0 [facility] Comment on above: Result Comment: Plea se Note: New Test Units and Gender Specific Reference Ranges. For more information see Policy Stat Procedure Connelly High Sensitivity Troponin (TNIH) and attachments. Performed By: #### L 501.4020 ####[facility] [address] [place], [address] L501.5425on 10-03-2024 TROPONIN-I HS 7 pg/mL Normal 3.0-54.0 [facility] Comment on above: Order Comment: 1Y Result Comment: Plea se Note: New Test Units and Gender Specific Reference Ranges. For more information see Policy Stat Procedure Connelly High Sensitivity Troponin (TNIH) and attachments. Performed By: #### L 501.5425, L500.2500, L100.0100 ####[facility] [address] [place], [address] SCRN MAMM (CAD)W/MAGUE BILATo n 07-19-2024 SCRN MAMM (CAD)W/MAGUE BILAT Normal [facility] 12 Lead EKG performed by BMS on 05-31-2024 12 Lead EKG performed by BMS Normal [facility] Cardiology Visit Reporton Cardiology Visit Report Normal [facility] ANTINUCLEAR ANTIBODIES DIREC Ton 04-11-2024 MAURO,DIRECT Negative Normal Negative [facility] Comment on above: Order Comment: Order Date: 04/08/24Order Info: [id number] - MAURO Result Comment: Perf ormed at: [facility] [address] [id number] Director: Darryl Mahmood PhD, Phone: [phone] Performed By: #### L 506.0250, L501.6710, L503.0105, L3100.5475, L501.9520 ####[facility] [address] [place], [address] CRPon 04-08-2024 C-REACTIVE PROT 7.43 mg/L High 0.0-3.0 [facility] Comment on above: Order Comment: Order Date: 04/08/24Order Info: [id number] - CMPOrder Info: [id number] - CRPOrder Info: 3016-3 - TSHOrder Info: 228-8 - FOLSN Result Comment: C-Re active Protein (CRP) provides useful information for thediagnosis, therapy and monitoring of inflammatory processesand associated diseases. For the evaluation of Relative Riskfor Cardiovascular Disease, a High Sensitivity CRP (HSCRP)should be ordered. Performed By: #### L 506.0250, L501.6710, L503.0105, L3100.5475, L501.9520 ####[facility] [address] [place], [place], [address] Comprehensive Metabolic Prof ilon 04-08-2024 Albumin [Mass/Vol] 3.6 g/dL Normal 3.2-5.0 [facility] Comment on above: Order Comment: Order Date: 04/08/24Order Info: 0786-1 - CMPOrder Info: [id number] - CRPOrder Info: 3016-3 - TSHOrder Info: 2284-8 - FOLSN Performed By: #### L 500.4050 ####[facility] [address] [place], [address] Albumin/Globulin [Mass ratio] 0.9 {ratio} Normal 0.9-2.4 [facility] Comment on above: Order Comment: Order Date: 04/08/24Order Info: [id number] - CMPOrder Info: [id number] - CRPOrder Info: 3016-3 - TSHOrder Info: 2284-8 - FOLSN Performed By: #### L 500.4050 ####[facility] [address] [place], [address] ALK P 124 U/L High 45-117 [facility] Comment on above: Order Comment: Order Date: 04/08/24Order Info: 0786-1 - CMPOrder Info: [id number] - CRPOrder Info: 3016-3 - TSHOrder Info: 2284-8 - FOLSN Performed By: #### L 500.4050 ####[facility] [address] [place], [address] ALT [Catalytic activity/Vol] 17 U/L Normal 13-56 [facility] Comment on above: Order Comment: Order Date: 04/08/24Order Info: 0786-1 - CMPOrder Info: [id number] - CRPOrder Info: 3016-3 - TSHOrder Info: 2284-8 - FOLSN Performed By: #### L 500.4050 ####[facility] [address] [place], [address] AST [Catalytic activity/Vol] 13 U/L Low 15-37 [facility] Comment on above: Order Comment: Order Date: 04/08/24Order Info: 0786-1 - CMPOrder Info: [id number] - CRPOrder Info: 3016-3 - TSHOrder Info: 2284-8 - FOLSN Performed By: #### L 500.4050 ####[facility] [address] [place], [address] Bilirubin [Mass/Vol] 0.40 mg/dL Normal 0.20-1.00 [facility] Comment on above: Order Comment: Order Date: 04/08/24Order Info: 0786-1 - CMPOrder Info: [id number] - CRPOrder Info: 3016-3 - TSHOrder Info: 2284-8 - FOLSN Result Comment: For patients on eltrombopag therapy, use of Dimension Connelly TBIL is not recommended. Performed By: #### L 500.4050 ####[facility] [address] [place], [place], [phone]) BUN/CRE 18.0 RATIO Normal 10-20 [facility] Comment on above: Order Comment: Order Date: 04/08/24Order Info: 0786-1 - CMPOrder Info: [id number] - CRPOrder Info: 3016-3 - TSHOrder Info: 2284-8 - FOLSN Performed By: #### L 500.4050 ####[facility] [address] [place], [place], [phone]) CA,Total 9.5 mg/dL Normal 8.5-10.1 [facility] Comment on above: Order Comment: Order Date: 04/08/24Order Info: 0786-1 - CMPOrder Info: [id number] - CRPOrder Info: 3016-3 - TSHOrder Info: 2284-8 - FOLSN Performed By: #### L 500.4050 ####[facility] [address] [place], [place], [address](340) Chloride [Moles/Vol] 104 mmol/L Normal 98-107 [facility] Comment on above: Order Comment: Order Date: 04/08/24Order Info: 0786-1 - CMPOrder Info: [id number] - CRPOrder Info: 3016-3 - TSHOrder Info: 2284-8 - FOLSN Performed By: #### L 500.4050 ####[facility] [address] [place], [place], [address] CO2 [Moles/Vol] 25.0 mmol/L Normal 21.0-32.0 [facility] Comment on above: Order Comment: Order Date: 04/08/24Order Info: 86-1 - CMPOrder Info: [id number] - CRPOrder Info: 63 - TSHOrder Info: 2288 - FOLSN Performed By: #### L 500.4050 ####[facility] [address] [place], [place], [address](851) Creatinine [Mass/Vol] 0.56 mg/dL Normal 0.55-1.02 [facility] Comment on above: Order Comment: Order Date: 04/08/24Order Info: 86-1 - CMPOrder Info: [id number] - CRPOrder Info: 3 - TSHOrder Info: 8 - FOLSN Result Comment: The validity of the calculated GFR GFRAA in patients over70 years has not been determined. Clinical correlation isessential. Performed By: #### L 500.4050 ####[facility] [address] [place], [address] EST GFR - AA 138 mL/min Normal >60 [facility] Comment on above: Order Comment: Order Date: 04/08/24Order Info: 86-1 - CMPOrder Info: [id number] - CRPOrder Info: 63 - TSHOrder Info: 8 - FOLSN Result Comment: Afri can [place] GFR Calc Performed By: #### L 500.4050 ####[facility] [address] [place], [address] GAP 9 Normal 5-15 [facility] Comment on above: Order Comment: Order Date: 04/08/24Order Info: 0786-1 - CMPOrder Info: [id number] - CRPOrder Info: 3 - TSHOrder Info: [id number] - FOLSN Performed By: #### L 500.4050 ####[facility] [address] [place], [place], [address] GFR/1.73 sq M.predicted among non-blacks MDRD (S/P/Bld) [Vol rate/Area] 114 mL/min/{1.73_m2} Normal >60 [facility] Comment on above: Order Comment: Order Date: 04/08/24Order Info: 785-1 - CMPOrder Info: [id number] - CRPOrder Info: 3015-3 - TSHOrder Info: 228-8 - FOLSN Result Comment: Non- GFR Calc Performed By: #### L 500.4050 ####[facility] [address] [place], [place], [id number] Globulin (S) [Mass/Vol] 3.9 g/dL Normal 2.2-4.2 [facility] Comment on above: Order Comment: Order Date: 04/08/24Order Info: 785- - CMPOrder Info: [id number] - CRPOrder Info: 3 - TSHOrder Info: 8 - FOLSN Performed By: #### L 500.4050 ####[facility] [address] [place], [place], [address] Glucose [Mass/Vol] 117 mg/dL High 74-106 [facility] Comment on above: Order Comment: Order Date: 04/08/24Order Info: 785- - CMPOrder Info: [id number] - CRPOrder Info: 3 - TSHOrder Info: [id number] - FOLSN Result Comment: Fast ing Glucose result from 100 to 125 mg/dLsuggests IMPAIRED HOMEOSTASIS per A.D.A. criteria. Performed By: #### L 500.4050 ####[facility] [address] [place], [place], [phone] Potassium [Moles/Vol] 3.8 mmol/L Normal 3.5-5.1 [facility] Comment on above: Order Comment: Order Date: 04/08/24Order Info: 07- - CMPOrder Info: [id number] - CRPOrder Info: [id number] - TSHOrder Info: 8 - FOLSN Performed By: #### L 500.4050 ####[facility] [address] [place], [place], [address] Sodium [Moles/Vol] 138 mmol/L Normal 136-145 [facility] Comment on above: Order Comment: Order Date: 04/08/24Order Info: 86-1 - CMPOrder Info: [id number] - CRPOrder Info: 3016-3 - TSHOrder Info: 2284-8 - FOLSN Performed By: #### L 500.4050 ####[facility] [address] [place], [place], [address] T PROT 7.5 g/dL Normal 6.4-8.2 [facility] Comment on above: Order Comment: Order Date: 04/08/24Order Info: 785-1 - CMPOrder Info: [id number] - CRPOrder Info: 3016-3 - TSHOrder Info: 2284-8 - FOLSN Performed By: #### L 500.4050 ####[facility] [address] [place], [place], [address] Urea nitrogen [Mass/Vol] 10 mg/dL Normal 7-18 [facility] Comment on above: Order Comment: Order Date: 04/08/24Order Info: 785-1 - CMPOrder Info: [id number] - CRPOrder Info: 3016-3 - TSHOrder Info: 2284-8 - FOLSN Performed By: #### L 500.4050 ####[facility] [address] [place], [address] Folates, (Folic Acid)on FOLATES 11.90 ng/mL Normal 3.1-55.4 [facility] Comment on above: Order Comment: Order Date: 04/08/24Order Info: 785-1 - CMPOrder Info: [id number] - CRPOrder Info: 3016-3 - TSHOrder Info: [id number] - FOLSN Performed By: #### L 506.0250, L501.6710, L503.0105, L3100.5475, L501.9520 ####[facility] [address] [place], [address] Thyroid Stim Hormone (TSH)on 04-08-2024 TSH 1.72 uIU/mL Normal 0.358-3.74 [facility] Comment on above: Order Comment: Order Date: 04/08/24Order Info: 0786-1 - CMPOrder Info: [id number] - CRPOrder Info: 3016-3 - TSHOrder Info: 2284-8 - FOLSN Performed By: #### L 506.0250, L501.6710, L503.0105, L3100.5475, L501.9520 ####[facility] [address] [place], [address] Vitamin B12on 04-08-2024 Cobalamin (Vitamin B12) [Mass/Vol] 400 pg/mL Normal 211-911 [facility] Comment on above: Order Comment: Order Date: 04/08/24Order Info: 2132-9 - B12 Performed By: #### L 506.0250, L501.6710, L503.0105, L3100.5475, L501.9520 ####[facility] [address] [place], [place], [address] Absolute lymphocyte countOrd ered By: Elmo Velásquez on 02-05-2024 Lymphocytes Auto (Unsp spec) [#/Vol] 1.90 10*3/uL 0.83-4.51 [facility] Automated lymphocyte count a s percentage of total leukocytesOrdered By: Elmo Velásquez on 02-05-2024 Lymphocytes/100 WBC Auto (Unsp spec) 26.7 % 19-41 [facility] Basophil percentageOrdered B y: Elmo Velásquez on 02-05-2024 Basophils/100 WBC (Bld) 0.4 % 0-1 [facility] Chloride [Moles/Vol] 104 mmol/L 98-107 [facility] Eosinophils/100 WBC (Bld) 1.7 % 0-5 [facility] Glucose [Mass/Vol] 95 mg/dL 74-106 [facility] Hemoglobin (Bld) [Mass/Vol] 13.8 g/dL 12.0-15.0 [facility] Monocytes/100 WBC (Bld) 9.0 % 0-10 [facility] Neutrophils (Bld) [#/Vol] 4.4 10*3/uL 2.0-7.7 [facility] Neutrophils/100 WBC (Bld) 61.9 % 47-70 [facility] Potassium [Moles/Vol] 5.0 mmol/L 3.5-5.1 [facility] Sodium [Moles/Vol] 137 mmol/L 136-145 [facility] WBC (Bld) [#/Vol] 7.1 10*3/uL 4.4-11.0 [facility] Determination of erythrocyte mean corpuscular volume (MCV)Ordered By: Elmo Velásquez on 02-05-2024 MCV (RBC) [Entitic vol] 91.6 fL 81-99 [facility] Erythrocyte distribution wid th ratioOrdered By: Elmo Velásquez on 02-05-2024 Erythrocyte distribution width (RBC) [Ratio] 12.6 % 11.6-14.6 [facility] Erythrocyte distribution wid th standard deviationOrdered By: Elmo Velásquez on 02-05-2024 Erythrocyte distribution width (RBC) [Entitic vol] 42.2 fL 35.1-43.9 [facility] Hematocrit Auto (Bld) [Volum e fraction]Ordered By: Elmo Velásquez on 02-05-2024 Hematocrit (Bld) [Volume fraction] 41.7 % 37-47 [facility] Immature granulocytes/100 WB C Auto (Bld)Ordered By: Elmo Velásquez on 02-05-2024 Immature granulocytes/100 WBC (Bld) 0.300 % 0.0-0.9 [facility] Comment on above: IG% - Immature Granu locytes (promyelocytes, myelocytes and metamyelocytes) > 1% indicates that a LEFT SHIFT is Present. Laboratory - Chemistry and C hemistry - challengeOrdered By: Elmo Velásquez on 02-05-2024 CO2 [Moles/Vol] 27.0 mmol/L 21.0-32.0 [facility] Urea nitrogen/Creatinine [Mass ratio] 50.7 mg/mg 10-20 [facility] Laboratory - Hematology and Cell countsOrdered By: Elmo Velásquez on 02-05-2024 MCH (RBC) [Entitic mass] 30.3 pg 27.0-32.0 [facility] MCHC (RBC) [Mass/Vol] 33.1 g/dL 32-36 [facility] Nucleated RBC/100 WBC (Bld) [Ratio] 0 % 0-5 [facility] Platelet mean volume (Bld) [Entitic vol] 9.6 fL 6.2-12.0 [facility] Platelets (Bld) [#/Vol] 189 10*3/uL 150-450 [facility] No Panel InformationOrdered By: Elmo Velásquez on 02-05-2024 Estimated GFR (MDRD) Amer 128 mL/min >60 [facility] Comment on above: GFR Calc Estimated GFR (MDRD) Non-Af Amer 106 mL/min >60 [facility] Comment on above: Non- GFR Calc RBC Auto (Bld) [#/Vol]Ordere d By: Elmo Velásquez on 02-05-2024 RBC (Bld) [#/Vol] 4.55 10*6/uL 4.2-5.4 [facility] Serum or plasma calcium rosemary urement (mass/volume)Ordered By: Elmo Velásquez on 02-05-2024 Calcium [Mass/Vol] 10.0 mg/dL 8.5-10.1 [facility] Serum or plasma creatinine m easurement (mass/volume)Ordered By: Elmo Velásquez on 02-05-2024 Creatinine [Mass/Vol] 0.59 mg/dL 0.55-1.02 [facility] Comment on above: The validity of the calculated GFR & GFRAA in patients over 70 years has not been determined. Clinical correlation is essential. Serum or plasma urea nitroge n measurement (mass/volume)Ordered By: Elmo Velásquez on 02-05-2024 Urea nitrogen [Mass/Vol] 30 mg/dL 7-18 [facility] Thin prep Papanicolaou smear with manual screeningOrdered By: Elmo Velásquez on 02-05-2024 Thin prep Papanicolaou smear with manual screening 3.3 g/dL 3.2-5.0 [facility] Thin prep Papanicolaou smear with manual screening 6 5-15 [facility] Absolute lymphocyte countOrd ered By: Damiankimberly Craig on 01-25-2024 Lymphocytes Auto (Unsp spec) [#/Vol] 1.41 10*3/uL 0.83-4.51 [facility] Activated partial thrombopla stin time (aPTT) in platelet poor plasma by coagulation aOrdered By: Damian Craig on 01-25-2024 aPTT Coag (PPP) [Time] 32.3 s 24.1-36.2 [facility] Automated lymphocyte count a s percentage of total leukocytesOrdered By: Damian Craig on 01-25-2024 Lymphocytes/100 WBC Auto (Unsp spec) 22.7 % 19-41 [facility] Basophil percentageOrdered B y: Damian Craig on 01-25-2024 Basophils/100 WBC (Bld) 0.5 % 0-1 [facility] Bilirubin [Mass/Vol] 0.40 mg/dL 0.20-1.00 [facility] Comment on above: For patients on eltr ombopag therapy, use of Dimension Connelly TBIL is not recommended. Chloride [Moles/Vol] 104 mmol/L 98-107 [facility] Eosinophils/100 WBC (Bld) 2.9 % 0-5 [facility] Glucose [Mass/Vol] 95 mg/dL 74-106 [facility] Hemoglobin (Bld) [Mass/Vol] 14.4 g/dL 12.0-15.0 [facility] Monocytes/100 WBC (Bld) 8.4 % 0-10 [facility] Neutrophils (Bld) [#/Vol] 4.1 10*3/uL 2.0-7.7 [facility] Neutrophils/100 WBC (Bld) 65.2 % 47-70 [facility] Potassium [Moles/Vol] 3.7 mmol/L 3.5-5.1 [facility] Protein [Mass/Vol] 7.5 g/dL 6.4-8.2 [facility] Sodium [Moles/Vol] 139 mmol/L 136-145 [facility] WBC (Bld) [#/Vol] 6.2 10*3/uL 4.4-11.0 [facility] Determination of erythrocyte mean corpuscular volume (MCV)Ordered By: Damian Craig on 01-25-2024 MCV (RBC) [Entitic vol] 93.1 fL 81-99 [facility] Erythrocyte distribution wid th ratioOrdered By: Damian Craig on 01-25-2024 Erythrocyte distribution width (RBC) [Ratio] 12.8 % 11.6-14.6 [facility] Erythrocyte distribution wid th standard deviationOrdered By: Damian Craig on 01-25-2024 Erythrocyte distribution width (RBC) [Entitic vol] 43.8 fL 35.1-43.9 [facility] Hematocrit Auto (Bld) [Volum e fraction]Ordered By: Damian Craig on 01-25-2024 Hematocrit (Bld) [Volume fraction] 44.3 % 37-47 [facility] Immature granulocytes/100 WB C Auto (Bld)Ordered By: Damian Craig on 01-25-2024 Immature granulocytes/100 WBC (Bld) 0.300 % 0.0-0.9 [facility] Comment on above: IG% - Immature Granu locytes (promyelocytes, myelocytes and metamyelocytes) > 1% indicates that a LEFT SHIFT is Present. Laboratory - Chemistry and C hemistry - challengeOrdered By: Damian Craig on 01-25-2024 Albumin/Globulin [Mass ratio] 0.8 {ratio} 0.9-2.4 [facility] ALP [Catalytic activity/Vol] 102 U/L 45-117 [facility] ALT [Catalytic activity/Vol] 18 U/L 13-56 [facility] CO2 [Moles/Vol] 28.0 mmol/L 21.0-32.0 [facility] Globulin (S) [Mass/Vol] 4.2 g/dL 2.2-4.2 [facility] Magnesium [Mass/Vol] 2.2 mg/dL 1.6-2.6 [facility] Urea nitrogen/Creatinine [Mass ratio] 22.8 mg/mg 10-20 [facility] Laboratory - CoagulationOrde red By: Damian Craig on 01-25-2024 INR Coag (Bld) [Relative time] 1.5 {INR} [facility] PT Coag (PPP) [Time] 17.8 s 11.7-14.9 [facility] Laboratory - Hematology and Cell countsOrdered By: Damian Craig on 01-25-2024 MCH (RBC) [Entitic mass] 30.3 pg 27.0-32.0 [facility] MCHC (RBC) [Mass/Vol] 32.5 g/dL 32-36 [facility] Nucleated RBC/100 WBC (Bld) [Ratio] 0 % 0-5 [facility] Platelet mean volume (Bld) [Entitic vol] 9.4 fL 6.2-12.0 [facility] Platelets (Bld) [#/Vol] 207 10*3/uL 150-450 [facility] No Panel InformationOrdered By: Damian Craig on 01-25-2024 Estimated GFR (MDRD) Amer 114 mL/min >60 [facility] Comment on above: GFR Calc Estimated GFR (MDRD) Non-Af Amer 94 mL/min >60 [facility] Comment on above: Non- GFR Calc Urine Microalbumin/Creatinine Ratio TNP [facility] Comment on above: Test not performed Vitamin D 25-Hydroxy 46.9 ng/mL [facility] Comment on above: Vitamin D 25(OH) Sta tus Range Deficiency <20 ng/mL (50nmol/L) Insufficiency 20 - 30 ng/mL (50 - 75 nmol/L) Sufficiency 30 - 100 ng/mL (75 - 250 nmol/L) Toxicity >100 ng/mL (>250 nmol/L) RBC Auto (Bld) [#/Vol]Ordere d By: Damian Craig on 01-25-2024 RBC (Bld) [#/Vol] 4.76 10*6/uL 4.2-5.4 [facility] Serum or plasma calcium rosemary urement (mass/volume)Ordered By: Damian Craig on 01-25-2024 Calcium [Mass/Vol] 9.3 mg/dL 8.5-10.1 [facility] Serum or plasma creatinine m easurement (mass/volume)Ordered By: Damian Craig on 01-25-2024 Creatinine [Mass/Vol] 0.66 mg/dL 0.55-1.02 [facility] Comment on above: The validity of the calculated GFR & GFRAA in patients over 70 years has not been determined. Clinical correlation is essential. Serum or plasma thyroid stim ulating hormone (TSH) measurement (units/volume)Ordered By: Damian Craig on 01-25-2024 TSH Qn 1.50 uIU/mL 0.358-3.74 [facility] Serum or plasma urea nitroge n measurement (mass/volume)Ordered By: Damian Craig on 01-25-2024 Urea nitrogen [Mass/Vol] 15 mg/dL 7-18 [facility] Thin prep Papanicolaou smear with manual screeningOrdered By: Damian Craig on 01-25-2024 Thin prep Papanicolaou smear with manual screening 3.3 g/dL 3.2-5.0 [facility] Thin prep Papanicolaou smear with manual screening 18 U/L 15-37 [facility] Thin prep Papanicolaou smear with manual screening 7 5-15 [facility] Thin prep Papanicolaou smear with manual screening < 5.0 mg/L NO RANGE EST. [facility] Urine creatinine measurement (mass/volume)Ordered By: Damian Craig on 01-25-2024 Creatinine (U) [Mass/Vol] 29.80 mg/dL NO RANGE EST. [facility] Absolute lymphocyte countOrd ered By: Damian Craig on 07-14-2023 Lymphocytes Auto (Unsp spec) [#/Vol] 1.58 10*3/uL 0.83-4.51 [facility] Basophil percentageOrdered B y: Damian Craig on 07-14-2023 Basophils/100 WBC (Bld) 0.5 % 0-1 [facility] Bilirubin [Mass/Vol] 0.40 mg/dL 0.20-1.00 [facility] Comment on above: For patients on eltr ombopag therapy, use of Dimension Connelly TBIL is not recommended. Chloride [Moles/Vol] 108 mmol/L 98-107 [facility] Eosinophils/100 WBC (Bld) 1.7 % 0-5 [facility] Glucose [Mass/Vol] 97 mg/dL 74-106 [facility] Neutrophils (Bld) [#/Vol] 3.7 10*3/uL 2.0-7.7 [facility] Neutrophils/100 WBC (Bld) 63.2 % 47-70 [facility] Potassium [Moles/Vol] 3.9 mmol/L 3.5-5.1 [facility] Protein [Mass/Vol] 6.6 g/dL 6.4-8.2 [facility] Sodium [Moles/Vol] 140 mmol/L 136-145 [facility] WBC (Bld) [#/Vol] 5.9 10*3/uL 4.4-11.0 [facility] Blood erythrocytes count (nu mber/volume)Ordered By: Damian Craig on 07-14-2023 RBC (Bld) [#/Vol] 4.59 10*6/uL 4.2-5.4 [facility] Blood hemoglobin measurement (mass/volume)Ordered By: Damian Craig on 07-14-2023 Hemoglobin (Bld) [Mass/Vol] 13.7 g/dL 12.0-15.0 [facility] Blood lymphocytes/100 leukoc ytesOrdered By: Damian Craig on 07-14-2023 Lymphocytes/100 WBC (Bld) 26.9 % 19-41 [facility] Blood monocytes/100 leukocyt esOrdered By: Damian Craig on 07-14-2023 Monocytes/100 WBC (Bld) 7.5 % 0-10 [facility] Blood platelet mean volumeOr dered By: Damian Craig on 07-14-2023 Platelet mean volume (Bld) [Entitic vol] 9.6 fL 6.2-12.0 [facility] Determination of erythrocyte mean corpuscular volume (MCV)Ordered By: Damian Craig on 07-14-2023 MCV (RBC) [Entitic vol] 93.9 fL 81-99 [facility] Hematocrit Auto (Bld) [Volum e fraction]Ordered By: Damian Craig on 07-14-2023 Hematocrit (Bld) [Volume fraction] 43.1 % 37-47 [facility] INR in Blood by Coagulation assayOrdered By: Damian Craig on 07-14-2023 INR Coag (Bld) [Relative time] 2.9 {INR} [facility] Laboratory - Chemistry and C hemistry - challengeOrdered By: Damian Craig on 07-14-2023 ALP [Catalytic activity/Vol] 97 U/L 45-117 [facility] ALT [Catalytic activity/Vol] 26 U/L 13-56 [facility] CO2 [Moles/Vol] 27.0 mmol/L 21.0-32.0 [facility] Cobalamin (Vitamin B12) [Mass/Vol] 388 pg/mL 211-911 [facility] Globulin (S) [Mass/Vol] 3.5 g/dL 2.2-4.2 [facility] Urea nitrogen/Creatinine [Mass ratio] 27.0 mg/mg 10-20 [facility] Laboratory - CoagulationOrde red By: Damian Craig on 07-14-2023 PT Coag (PPP) [Time] 30.6 s 11.7-14.9 [facility] Laboratory - Hematology and Cell countsOrdered By: Damian Craig on 07-14-2023 Erythrocyte distribution width (RBC) [Entitic vol] 45.7 fL 35.1-43.9 [facility] Erythrocyte distribution width (RBC) [Ratio] 13.3 % 11.6-14.6 [facility] Immature granulocytes/100 WBC (Bld) 0.200 % 0.0-0.9 [facility] Comment on above: IG% - Immature Granu locytes (promyelocytes, myelocytes and metamyelocytes) > 1% indicates that a LEFT SHIFT is Present. MCH (RBC) [Entitic mass] 29.8 pg 27.0-32.0 [facility] Nucleated RBC/100 WBC (Bld) [Ratio] 0 % 0-5 [facility] MCHC Auto (RBC) [Mass/Vol]Or dered By: Damian Craig on 07-14-2023 MCHC (RBC) [Mass/Vol] 31.8 g/dL 32-36 [facility] No Panel InformationOrdered By: Damian Craig on 07-14-2023 Estimated GFR (MDRD) Amer 105 mL/min >60 [facility] Comment on above: GFR Calc Estimated GFR (MDRD) Non-Af Amer 87 mL/min >60 [facility] Comment on above: Non- GFR Calc Thyroid Stimulating Hormone (TSH) 2.06 uIU/mL 0.358-3.74 [facility] Platelets bldOrdered By: Jazzy Craig on 07-14-2023 Platelets (Bld) [#/Vol] 186 10*3/uL 150-450 [facility] Serum or plasma albumin rosemary urement (mass/volume)Ordered By: Damian Craig on 07-14-2023 Albumin [Mass/Vol] 3.1 g/dL 3.2-5.0 [facility] Serum or plasma albumin/glob ulin mass ratioOrdered By: Damian Craig on 07-14-2023 Albumin/Globulin [Mass ratio] 0.9 {ratio} 0.9-2.4 [facility] Serum or plasma calcium rosemary urement (mass/volume)Ordered By: Damian Craig on 07-14-2023 Calcium [Mass/Vol] 8.7 mg/dL 8.5-10.1 [facility] Serum or plasma creatinine m easurement (mass/volume)Ordered By: Damian Craig on 07-14-2023 Creatinine [Mass/Vol] 0.70 mg/dL 0.55-1.02 [facility] Comment on above: The validity of the calculated GFR & GFRAA in patients over 70 years has not been determined. Clinical correlation is essential. Serum or plasma ferritin chapito surement (mass/volume)Ordered By: Damian Craig on 07-14-2023 Ferritin [Mass/Vol] 65 ng/mL 8-252 [facility] Serum or plasma urea nitroge n measurement (mass/volume)Ordered By: Damian Craig on 07-14-2023 Urea nitrogen [Mass/Vol] 19 mg/dL 7-18 [facility] Thin prep Papanicolaou smear with manual screeningOrdered By: Damian Craig on 07-14-2023 Thin prep Papanicolaou smear with manual screening 17 U/L 15-37 [facility] Thin prep Papanicolaou smear with manual screening 5 5-15 [facility] Vital Signs Date Time Vital Sign Value Performing Clinician Buffyi jose manuel 03-10-2025 09:39-0400 Diastolic blood pressure 77 mm[Hg] Dr. Damian Craig MD Work Phone: [facility] 03-10-2025 09:39-0400 Heart rate 78 /min Dr. Damian Craig MD Work Phone: [facility] 03-10-2025 09:39-0400 Respiratory rate 18 /min Dr. Damian Craig MD Work Phone: [facility] 03-10-2025 09:39-0400 SaO2% (BldA) [Mass fraction] 97 % Dr. Damian Craig MD Work Phone: [facility] 03-10-2025 09:39-0400 Systolic blood pressure 130 mm[Hg] Dr. Damina Craig MD Work Phone: 8(845)834-083724 [place] [address] 12-26-2024 09:36-0400 Body mass index (BMI) [Ratio] 35.4 kg/m2 Dr. Damian Craig MD Work Phone: 4(770)092-836824 [place] [address] 12-26-2024 09:36-0400 Body temperature 96.3 [degF] Dr. Damian Craig MD Work Phone: 6(805)381-546524 [place] [address] 12-26-2024 09:36-0400 Diastolic blood pressure 54 mm[Hg] Dr. Damian Craig MD Work Phone: 3(839)844-152424 [place] [address] 12-26-2024 09:36-0400 Heart rate 94 /min Dr. Damian Craig MD Work Phone: 1(761)346-843424 [place] [address] 12-26-2024 09:36-0400 Respiratory rate 16 /min Dr. Damian Craig MD Work Phone: 4(890)078-071565 [address] 12-26-2024 09:36-0400 Systolic blood pressure 117 mm[Hg] Dr. Damian Craig MD Work Phone: 1(984)466-528565 [address] 12-05-2024 11:31-0500 Body temperature 98.4 [degF] Dr. Damian Craig MD Work Phone: 5(258)411-574065 [address] 12-05-2024 11:31-0500 Diastolic blood pressure 63 mm[Hg] Dr. Damian Craig MD Work Phone: 3(034)327-188724 [place] [address] 12-05-2024 11:31-0500 Heart rate 100 /min Dr. Damian Craig MD Work Phone: 0(504)344-893265 [address] 12-05-2024 11:31-0500 Respiratory rate 16 /min Dr. Damian Craig MD Work Phone: 7(707)086-245424 [place] [address] 12-05-2024 11:31-0500 SaO2% (BldA) [Mass fraction] 96 % Dr. Damian Craig MD Work Phone: 6(075)582-638124 [place] [address] 12-05-2024 11:31-0500 Systolic blood pressure 115 mm[Hg] Dr. Damian Craig MD Work Phone: 1(467)962-905624 [place] [address] 12-03-2024 01:23-0500 Body weight 90.[address] Damian Craig MD Work Phone: 8(020)795-151524 [place] [address] 12-01-2024 14:27-0500 Body height 160.[address] Damian Craig MD Work Phone: 9(637)330-167124 [place] [address] 12-01-2024 14:27-0500 Body weight [address] Damian Craig MD Work Phone: 2(754)448-747424 [place] [address] 11-30-2024 17:10-0500 Body mass index (BMI) [Ratio] 34.7 kg/m2 Dr. Damian Craig MD Work Phone: 8(944)987-280824 [place] [address] 11-30-2024 15:20-0500 Inhaled oxygen flow rate 2 L/min Dr. Damian Craig MD Work Phone: 7(234)096-391924 [place] [address] 11-28-2024 14:43-0500 Body mass index (BMI) [Ratio] 35.4 kg/m2 Dr. Damian Craig MD Work Phone: 2(627)250-523824 [place] [address] 11-28-2024 14:43-0500 Body temperature 96.9 [degF] Dr. Damian Craig MD Work Phone: 9(697)422-814324 [place] [address] 11-28-2024 14:43-0500 Diastolic blood pressure 53 mm[Hg] Dr. Damian Craig MD Work Phone: 8(859)338-393124 [place] [address] 11-28-2024 14:43-0500 Heart rate 115 /min Dr. Damian Craig MD Work Phone: 2(025)129-638924 [place] [address] 11-28-2024 14:43-0500 Respiratory rate 20 /min Dr. Damian Craig MD Work Phone: [facility] 11-28-2024 14:43-0500 Systolic blood pressure 107 mm[Hg] Dr. Damian Craig MD Work Phone: [facility] 11-15-2024 16:34-0500 Body temperature 97 [degF] Dr. Damian Craig MD Work Phone: 8(865)533-188406 [place] [address] 11-15-2024 16:34-0500 Diastolic blood pressure 77 mm[Hg] Dr. Damian Craig MD Work Phone: 3(104)864-762406 [place] [address] 11-15-2024 16:34-0500 Heart rate 119 /min Dr. Damian Craig MD Work Phone: 1(718)448-694824 [place] [address] 11-15-2024 16:34-0500 Respiratory rate 17 /min Dr. Damian Craig MD Work Phone: 6(112)436-503924 [place] [address] 11-15-2024 16:34-0500 SaO2% (BldA) [Mass fraction] 95 % Dr. Damian Craig MD Work Phone: 1(331)025-900265 [address] 11-15-2024 16:34-0500 Systolic blood pressure 131 mm[Hg] Dr. Damian Craig MD Work Phone: 7(342)181-843665 [address] 11-15-2024 03:59-0500 Body mass index (BMI) [Ratio] 36.5 kg/m2 Dr. Damian Craig MD Work Phone: 2(899)745-031406 [place] [address] 11-15-2024 03:59-0500 Body weight 93.[address] Damian Craig MD Work Phone: [facility] 11-14-2024 07:44-0500 Inhaled oxygen flow rate 2 L/min Dr. Damian Craig MD Work Phone: [facility] 11-05-2024 02:44-0500 Body weight 90.[address] Damian Craig MD Work Phone: [facility] 12-01-2023 13:01-0500 Body height 160.[address] Damian Craig Work Phone: [facility] 12-01-2023 13:01-0500 Body mass index (BMI) [Ratio] 38.4 kg/m2 Dr. Damian Craig Work Phone: [facility] 12-01-2023 13:01-0500 Body weight 98.[address] Damian Craig Work Phone: [facility] 12-01-2023 13:01-0500 Diastolic blood pressure 81 mm[Hg] Dr. Damian Craig Work Phone: [facility] 12-01-2023 13:01-0500 Heart rate 99 /min Dr. Damian Craig Work Phone: [facility] 12-01-2023 13:01-0500 Respiratory rate 16 /min Dr. Damian Craig Work Phone: [facility] 12-01-2023 13:01-0500 Systolic blood pressure 148 mm[Hg] Dr. Damian Craig Work Phone: [facility] Encounters Encounter Date Encounter Type Care Provider Facility Start: 03-13-2025 ambulatory Damian Craig Facility:[facility] Start: 03-10-2025 End: 03-10-2025 Dr. Ariel Chisholm MD -[facility] Work Phone: Start: 03-10-2025 End: 03-10-[address] Damian Craig MD Work Phone: [facility] Work Phone: Start: 01-27-2025 End: 01-27-2025 Dr. Ariel Chisholm MD -[facility] Work Phone: Start: 01-27-2025 End: 01-27-2025 ambulatory Ariel Chisholm Facility:[facility] Start: 01-13-2025 ambulatory [place] Kathrine Facility:[facility] Start: 01-10-2025 End: 01-10-2025 Maria Luz Mack PA -Ultrasound [facility] Work Phone: Start: 01-10-2025 End: 01-10-2025 ambulatory Maria Luz Mack Facility:[facility] Start: 01-04-2025 End: 01-04-2025 Marai Luz Mack PA -Laboratory Work Phone: Start: 01-04-2025 End: 01-04-2025 Maria Luz WORKMAN -[facility] Work Phone: Start: 01-04-2025 End: 01-04-2025 ambulatory [place] Ira Facility:[facility] Start: 01-04-2025 End: 01-04-2025 ambulatory Maria Luz Martina Facility:[facility] Start: 12-26-2024 End: 01-02-2025 ambulatory Ariel Karishmaadelaida Facility:[facility] Start: 12-26-2024 End: 01-02-2025 Dr. [facility] Work Phone: Start: 12-19-2024 ambulatory Ariel Chisholm Facility:[facility] Start: 12-19-2024 Dr. Ariel Chisholm MD - [facility] Start: 12-13-2024 ambulatory Damian Craig Facility:[facility] Start: 12-12-2024 ambulatory Ariel Chisholm Facility:[facility] Start: 12-12-2024 Dr. Ariel Fuentse [facility] Start: 12-05-2024 Dr. Raymond Patricio MD -[facility] Work Phone: Start: 12-04-2024 Dr. Ariel Fuentes [facility] Start: 12-04-2024 Dr. Raymond Patricio MD -[facility] Work Phone: Start: 12-03-2024 Dr. Raymond Patricio MD -[facility] Work Phone: Start: 12-03-2024 Dr. Ariel Fuentes [facility] Start: 12-03-2024 Encounter for genera l adult medical examination without abnormal findings [facility] Start: 12-02-2024 Dr. Raymond Patricio MD -[facility] Work Phone: Start: 12-02-2024 Dr. Ariel Chisholm MD - [facility] Start: 12-01-2024 Dr. Raymond Patricio MD -[facility] Work Phone: Start: 12-01-2024 Dr. Ariel Chisholm MD - [facility] Start: 11-30-2024 ambulatory [facility] Facility: [facility] Start: 11-30-2024 End: 12-05-2024 Evaluation and management of inpatient [facility] Facility:[facility] Start: 11-30-2024 End: 12-05-2024 Dr. Elmo Velásquez MD -Medical Surgical 3 Work Phone: Start: 11-30-2024 Dr. Ariel Chisholm MD - [facility] Start: 11-30-2024 ambulatory [facility] Facility: [facility] Start: 11-28-2024 End: 12-02-2024 ambulatory Ariel Chisholm Facility:[facility] Start: 11-28-2024 End: 12-02-2024 Dr. Ariel Ch[facility]ol[facility] Work Phone: Start: 11-23-2024 End: 12-02-2024 Dr. Ariel Traylor MD -Laboratory Specimen Work Phone: Start: 11-23-2024 End: 12-02-2024 ambulatory Ariel Traylor Facility:[facility] Start: 11-21-2024 ambulatory Ariel Chisholm Facility:[facility] Start: 11-21-2024 Dr. Ariel Chisholm MD - [facility] Start: 11-15-2024 Dr. Raymond Patricio MD -[facility] Work Phone: Start: 11-14-2024 Dr. Raymond Patricio MD -[facility] Work Phone: Start: 11-14-2024 Dr. Ariel Chisholm MD - [facility] Start: 11-13-2024 Dr. Ariel Chisholm MD - [facility] Start: 11-13-2024 Dr. Aaron Tony MD -[facility] Work Phone: Start: 11-12-2024 Dr. Aaron Tony MD - [facility] Work Phone: Start: 11-12-2024 Dr. Ariel Chisholm MD -[facility] Start: 11-11-2024 Dr. Ariel Chisholm MD - [facility] Start: 11-11-2024 Dr. Aaron Tony MD - [facility] Work Phone: Start: 11-10-2024 ambulatory Shadia L White Facility :[facility] Start: 11-10-2024 Dr. Damian Khoury MD -[facility] Start: 11-10-2024 Dr. Aaron Tony MD - [facility] Work Phone: Start: 11-10-2024 Dr. Ariel Chisholm MD - [facility] Start: 11-09-2024 ambulatory Shadia Winkler White Facility :[facility] Start: 11-09-2024 End: 11-15-2024 Evaluation and management of inpatient Shadia L White Facility:[facility] Start: 11-09-2024 End: 11-15-2024 Dr. Raymond Patricio MD -Progressive Care Unit Work Phone: Start: 11-08-2024 End: 11-09-2024 ambulatory Damian Craig Facility:[facility] Start: 10-31-2024 End: 11-04-2024 ambulatory Ariel Chisholm Facility:[facility] Start: 10-24-2024 End: 11-04-2024 ambulatory Damian Craig Facility:[facility] Start: 10-17-2024 Encounter for other preprocedural examination Laurie Zuniga [facility] Start: 10-14-2024 ambulatory Elmo Velásquez Facility: [facility] Start: 10-14-2024 End: 10-17-2024 Evaluation and management of inpatient Elmo Velásquez Facility:[facility] Start: 10-13-2024 ambulatory Elmo Velásquez Facility: [facility] Start: 10-11-2024 End: 10-12-2024 ambulatory Elmo Velásquez Facility:[facility] Start: 10-11-2024 End: 10-11-2024 ambulatory Michi Ritter NP Facility:[facility] Start: 10-05-2024 End: 10-05-2024 Emergency department patient visit Damian Craig Facility:[facility] Start: 10-03-2024 End: 10-03-2024 Emergency department patient visit Damian Craig Facility:[facility] Start: 07-19-2024 End: 07-19-2024 ambulatory Damian Craig Facility:[facility] Start: 05-31-2024 End: 05-31-2024 ambulatory Damian Craig Facility:[facility] Start: 04-08-2024 End: 04-08-2024 ambulatory Damian Craig Facility:[facility] Start: 02-07-2024 End: 02-07-[address] Damian Craig [facility] [facility] Work Phone: Start: 02-07-2024 End: 02-07-[address] Damian Craig Work Phone: [facility]-Laboratory,Futur e Work Phone: Start: 02-05-2024 End: 02-05-[address] Damian Craig Work Phone: [facility] Work Phone: Start: 02-05-2024 End: 02-05-[address] Damian Craig Work Phone: [facility] Work Phone: Start: 02-04-2024 End: 02-04-[address] Damian Craig Work Phone: [facility] Work Phone: Start: 02-04-2024 End: 02-04-[address] Damian Craig Work Phone: [facility]-Physical Therapy Work Phone: Start: 02-01-2024 Non-patient / Non-visit Dr. Rick Craig Work Phone: [facility] Start: 02-01-2024 End: 02-01-[address] Damian Craig Work Phone: [facility] Work Phone: Start: 02-01-2024 End: 02-01-[address] Damian Craig Work Phone: [facility]-Cardiovascular Services Work Phone: Start: 01-28-[address] Damian Craig Work Phone: [facility]-Physical Therapy Work Phone: Start: 01-25-2024 End: 01-25-[address] Damian Craig Work Phone: [facility] Work Phone: Start: 01-25-2024 End: 01-25-[address] Damian Craig Work Phone: [facility] Start: 01-22-2024 End: 01-22-[address] Damian Craig Work Phone: [facility] Work Phone: Start: 01-22-2024 End: 01-22-[address] Damian Craig Work Phone: [facility]-Pulmonary Services/Neurology Work Phone: Start: 12-28-[address] Damian Craig Work Phone: [facility]-Physical Therapy Work Phone: Start: 12-22-2023 Non-patient / Non-visit Dr. Rick Craig Work Phone: [facility] Start: 12-22-2023 End: 12-22-[address] Damian Craig Work Phone: [facility] Work Phone: Start: 12-22-2023 End: 12-22-[address] Damian Craig Work Phone: [facility]-Cardiovascular Services Work Phone: Start: 12-01-[address] Damian Craig Work Phone: [facility] Start: 12-01-2023 End: 12-01-2023 Admission to same day surgery center Dr. Damian Craig Work Phone: [facility] Start: 12-01-2023 End: 12-01-[address] Damian Craig Work Phone: [facility] Work Phone: Start: 07-14-2023 End: 07-14-2023 ambulatory [facility] Work Phone: Start: 07-14-2023 End: 07-14-2023 Patient encounter procedure [facility] Start: 02-23-2023 End: 02-23-2023 ambulatory [facility] Work Phone: Start: 02-23-2023 End: 02-23-2023 Patient encounter procedure [facility]-Outpatient Breast Imaging Procedures Date Procedure Procedure Detail Performing Clinician Start: 01-10-[address] Damian Craig MD Work Phone: Start: 01-04-2025 Blood count smear mc rscp w/mnl difrntl wbc count Dr. Damian Craig MD Work Phone: Start: 01-04-2025 Mean corpuscular hem oglobin concentration determination Dr. Damian Craig MD Work Phone: Start: 01-04-2025 Nucleated red blood cell count procedure Dr. Damian Craig MD Work Phone: Start: 01-04-2025 Platelet mean volume determination Dr. Damian Craig MD Work Phone: Start: 01-04-2025 Tri[address] se measurement Dr. Damian Craig MD Work Phone: Start: 12-05-2024 Blood count smear mc rscp w/mnl difrntl wbc count Dr. Damian Craig MD Work Phone: Start: 12-05-[address] Damian Craig MD Work Phone: Start: 12-05-2024 Mean corpuscular hem oglobin concentration determination Dr. Damian Craig MD Work Phone: Start: 12-05-2024 Nucleated red blood cell count procedure Dr. Damian Craig MD Work Phone: Start: 12-05-2024 Platelet mean volume determination Dr. Damian Craig MD Work Phone: Start: 11-30-2024 End: 11-30-2024 Acid fast bacilli culture Dr. Damian Craig MD Work Phone: Start: 11-30-[address] Damian Craig MD Work Phone: Start: 11-30-[address] Damian Craig MD Work Phone: Start: 11-30-2024 Gram stain microscopy Vignesh Craig MD Work Phone: Start: 11-30-2024 End: 11-30-2024 Microbial culture, routine Dr. Damian cummins MD Work Phone: Start: 11-30-[address] Rick Craig MD Work Phone: Start: 11-30-2024 Arthrotomy of knee w ith drainage Dr. Damian Craig MD Work Phone: Start: 11-30-[address] Damian rahman MD Work Phone: Start: 11-23-2024 Albumin/Globulin ratio Dr. Damian Craig MD Work Phone: Start: 11-23-2024 Anion gap measurement Vignesh Craig MD Work Phone: Start: 11-23-2024 Blood count smear mc rscp w/mnl difrntl wbc count Dr. Damian Craig MD Work Phone: Start: 11-23-2024 BUN/Creatinine ratio Dr Holden Craig MD Work Phone: Start: 11-23-2024 Mean corpuscular hem oglobin concentration determination Dr. Damian Craig MD Work Phone: Start: 11-23-2024 Measurement of renal function Dr. Damian Craig MD Work Phone: Start: 11-23-2024 Nucleated red blood cell count procedure Dr. Damian Craig MD Work Phone: Start: 11-23-2024 Platelet mean volume determination Dr. Damian Craig MD Work Phone: Start: 11-15-2024 Anion gap measurement D lorena Craig MD Work Phone: Start: 11-15-2024 Blood count smear mc rscp w/mnl difrntl wbc count Dr. Damian Craig MD Work Phone: Start: 11-15-2024 BUN/Creatinine ratio Dr Holden Craig MD Work Phone: Start: 11-15-[address] Damian Craig MD Work Phone: Start: 11-15-2024 Mean corpuscular hem oglobin concentration determination Dr. Damian Craig MD Work Phone: Start: 11-15-2024 Measurement of renal function Dr. Damian Craig MD Work Phone: Start: 11-15-2024 Nucleated red blood cell count procedure Dr. Damian Craig MD Work Phone: Start: 11-15-2024 Platelet mean volume determination Dr. Damian Craig MD Work Phone: Start: 11-14-2024 Assay of phosphorus inorganic Dr. Damian Craig MD Work Phone: Start: 11-13-[address] Damian Craig MD Work Phone: Start: 11-13-2024 Sars-cov-2 Dr. Damian rahman MD Work Phone: Start: 11-13-2024 Plain chest X-ray Dr. Pierre Craig MD Work Phone: Start: 11-10-[address] Damian Craig MD Work Phone: Start: 11-10-[address] nucleic acid assay Dr[address] Damian Craig MD Work Phone: Start: 11-10-2024 Gram stain microscopy D lorena Craig MD Work Phone: Start: 11-10-2024 End: 11-10-2024 Microbial culture, body fluid Dr. Damian Craig MD Work Phone: Start: 11-10-2024 Microbial culture, routine Dr. Damian Craig MD Work Phone: Start: 11-10-2024 Albumin/Globulin ratio Dr. Damian Craig MD Work Phone: Start: 11-09-2024 Calculation of inter national normalized ratio Dr. Damian Craig MD Work Phone: Start: 11-09-2024 Bacterial nucleic acid assay Dr. Damian Craig MD Work Phone: Start: 11-09-2024 Microbial culture, routine Dr. Damian Craig MD Work Phone: Start: 11-09-[address] Rick Craig MD Work Phone: Start: 11-09-2024 Urine microscopy: red cells Dr. Damian Craig MD Work Phone: Start: 11-09-2024 Urnls dip stick/tabl et reagent auto microscopy Dr. Damian Craig MD Work Phone: Start: 11-09-2024 Plain chest X-ray Dr. Pierre Craig MD Work Phone: Start: 11-09-2024 XR knee, [address] Rick Craig MD Work Phone: Start: 11-09-[address] Damian Craig MD Work Phone: Start: 11-09-[address] Damian Craig MD Work Phone: Start: 11-09-2024 Dr. Damian rahman MD Work Phone: Start: 01-22-2024 MRI of lower extremity Dr. Damian Craig Work Phone: Start: 12-22-2023 Cardiovascular stres s test using pharmacologic stress agent Dr. Damian Craig Work Phone: Start: 02-23-2023 Screening mammography H/O: surgery Dr. Damian Craig MD Work Phone: H/O: surgery Dr. Ariel campbell MD Plan of Treatment Date Care Activity Detail Author Start: 12-05-2024 Referral to service [facility] Start: 12-05-2024 Consultation [facility] Start: 12-05-2024 Patient discharge [facility] Start: 12-02-2024 Referral to occupati onal therapist [facility] Start: 12-02-2024 [facility] Start: 12-02-2024 Removal of urinary catheter [facility] Start: 12-01-2024 Consultation for treatment [facility] Start: 12-01-2024 Application, wound VAC [facility] Start: 11-30-2024 End: 11-30-2024 Following clinical pathway protocol [facility] Start: 11-30-2024 [facility] Start: 11-30-2024 Admission procedure [facility] Start: 11-30-2024 Consultation [facility] Start: 11-30-2024 Notification of physician [facility] Start: 11-30-2024 Patient referral to dietitian [facility] Start: 11-30-2024 Assessment of risk o f venous thromboembolism [facility] Start: 11-30-2024 Catheterization of vein [facility] Start: 11-30-2024 Maintenance of drainage tube [facility] Start: 11-30-2024 End: 11-30-2024 Referral to service [facility] Start: 11-30-2024 [facility] Start: 11-30-2024 Bedrest [facility] Start: 11-30-2024 Patient referral to dietitian [facility] Start: 11-15-2024 Patient discharge [facility] Start: 11-13-2024 Oxygen therapy [facility] Start: 11-11-2024 Application, wound VAC [facility] Start: 11-10-2024 Referral to service [facility] Start: 11-10-2024 Consultation for treatment [facility] Start: 11-10-2024 Care planning and pr oblem solving actions [facility] Start: 11-09-2024 Following clinical p athway protocol [facility] Start: 11-09-2024 Assessment of risk o f venous thromboembolism [facility] Start: 11-09-2024 Consultation [facility] Start: 11-09-2024 Elevation of affected extremity [facility] Start: 11-09-2024 Fall prevention [facility] Start: 11-09-2024 Insertion of cathete r into peripheral vein [facility] Start: 11-09-2024 Introduction of urinary catheter [facility] Start: 11-09-2024 Measuring intake and output [facility] Start: 11-09-2024 Patient referral to dietitian [facility] Start: 11-09-2024 Providing care accor ding to standard [facility] Start: 11-09-2024 Provision of activity privileges [facility] Start: 11-09-2024 Referral to occupati onal therapist [facility] Start: 11-09-2024 Referral to service [facility] Start: 11-09-2024 Vital signs measurements [facility] Start: 11-09-2024 Wound care [facility] Start: 11-09-2024 [facility] Start: 11-09-2024 Admission procedure [facility] Patient referral [facility] Work Phone: Payers Date Payer Category Payer Self-pay [id number] 2020 Medicare [id number] 2020 Unknown [id number] 2005 Private Health Insurance [id number] Private Health Insurance [facility] [id number] Unknown [facility] [id number] Unknown [id number] 2.16.840.1.657224.3.579.2.462 Unknown [id number] 2.16.840.1.551977.3.579.2.462 Unknown [id number] 2.16.840.1.432065.3.579.2.462 Unknown [id number] 2.16.840.1.652566.3.579.2.462 Unknown [id number] 2.16.840.1.622126.3.579.2.462 Unknown [id number] 2.16.840.1.264525.3.579.2.462 Unknown [id number] 2.16.840.1.982625.3.579.2.462 Unknown [id number] 2.16.840.1.901149.3.579.2.462 Unknown [id number] 2.16.840.1.522588.3.579.2.462 Unknown [id number] 2.16.840.1.212799.3.579.2.462 Unknown [id number] 2.16.840.1.727369.3.579.2.462 Unknown [id number] 2.16.840.1.308468.3.579.2.462 Unknown [id number] 2.16.840.1.594451.3.579.2.462 Unknown [id number] 2.16.840.1.360404.3.579.2.462 Unknown [id number] 2.16.840.1.252986.3.579.2.462 Unknown [id number] 2.16.840.1.648011.3.579.2.462 Unknown [id number] 2.16.840.1.622419.3.579.2.462 Unknown [id number] 2.16.840.1.319764.3.579.2.462 Unknown [id number] 2.16.840.1.486316.3.579.2.462 Unknown [id number] 2.16.840.1.403828.3.579.2.462 Unknown [id number] 2.16.840.1.916906.3.579.2.462 Unknown [id number] 2.16.840.1.820281.3.579.2.462 Unknown [id number] 2.16.840.1.167374.3.579.2.462 Unknown [id number] 2.16.840.1.027400.3.579.2.462 Unknown [id number] 2.16.840.1.057304.3.579.2.462 Unknown [id number] 2.16.840.1.753464.3.579.2.462 Unknown [id number] 2.16.840.1.394318.3.579.2.462 Unknown [id number] 2.16.840.1.423943.3.579.2.462 Unknown [id number] 2.16.840.1.517517.3.579.2.462 Unknown [id number] 2.16.840.1.335290.3.579.2.462 Unknown [id number] 2.16.840.1.929589.3.579.2.462 Unknown [id number] 2.16.840.1.392962.3.579.2.462 Unknown [id number] 2.16.840.1.723337.3.579.2.462 Unknown [id number] 2.16.840.1.672092.3.579.2.462 Unknown [id number] 2.16.840.1.226993.3.579.2.462 Unknown [id number] 2.16.840.1.408090.3.579.2.462 Unknown [id number] 2.16.840.1.978093.3.579.2.462 Unknown [id number] 2.16.840.1.436775.3.579.2.462 Unknown [id number] 2.16.840.1.840713.3.579.2.462 Unknown [id number] 2.16.840.1.214985.3.579.2.462 Unknown [id number] 2.16.840.1.038359.3.579.2.462 Unknown [id number] 2.16.840.1.958322.3.579.2.462 Unknown [id number] 2.16840.1.833214.3.579.2.462 Unknown [id number] 2.16.840.1.526133.3.579.2.462 Unknown [id number] 2.16.840.1.859429.3.579.2.462 Unknown [id number] 2.16.840.1.113353.3.579.2.462 Unknown [id number] 2.16.840.1.829513.3.579.2.462 Unknown [id number] 2.16.840.1.840910.3.579.2.462 Unknown [id number] 2.16.840.1.923487.3.579.2.462 Unknown [id number] 2.16.840.1.040348.3.579.2.462 Unknown [id number] 2.16.840.1.847839.3.579.2.462 Unknown [id number] 2.16.840.1.513675.3.579.2.462 Unknown [id number] 2.16.840.1.153245.3.579.2.462 Unknown [id number] 2.16.840.1.494851.3.579.2.462 Unknown [id number] 2.16.840.1.110975.3.579.2.462 Unknown [id number] 2.16.840.1.364850.3.579.2.462 Unknown [id number] 2.16.840.1.697525.3.579.2.462 Unknown [id number] 2.16.840.1.037649.3.579.2.462 Unknown [id number] 2.16.840.1.219855.3.579.2.462 Unknown [id number] 2.16.840.1.044420.3.579.2.462 Unknown [id number] 2.16.840.1.263104.3.579.2.462 Unknown [id number] 2.16.840.1.358377.3.579.2.462 Unknown [id number] 2.16.840.1.982283.3.579.2.462 Social History Date Type Detail Facility Start: 07-23-2022 End: 12-01-2023 Tobacco smoking status 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 Start: 03-13-2021 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 by anterior approach femoral head FDA Start: 03-13-2021 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 by anterior approach hip stem FDA Start: 03-13-2021 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 by anterior approach poly insert FDA Start: 03-13-2021 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 by anterior approach [id number]) [id number] FDA Start: 05-08-2021 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 by anterior approach ([id number]) [id number] FDA Start: 05-08-2021 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 by anterior approach ([id number]) [id number] FDA Start: 05-08-2021 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 by anterior approach ([id number]) [id number] FDA Start: 05-08-2021 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 by anterior approach acetabular shell FDA Start: 03-13-2021 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 by anterior approach femoral head FDA Start: 03-13-2021 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 by anterior approach hip stem FDA Start: 03-13-2021 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 by anterior approach poly insert FDA Start: 03-13-2021 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 by anterior approach acetabular shell FDA Start: 03-13-2021 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 by anterior approach femoral head FDA Start: 03-13-2021 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 by anterior approach hip stem FDA Start: 03-13-2021 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 by anterior approach poly insert FDA Start: 03-13-2021 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 by anterior approach acetabular shell FDA Start: 03-13-2021 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 by anterior approach femoral head FDA Start: 03-13-2021 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 by anterior approach hip stem FDA Start: 03-13-2021 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 by anterior approach poly insert FDA Start: 03-13-2021 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 by anterior approach acetabular shell FDA Start: 03-13-2021 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 by anterior approach femoral head FDA Start: 03-13-2021 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 by anterior approach hip stem FDA Start: 03-13-2021 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 by anterior approach poly insert FDA Start: 03-13-2021 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 by anterior approach acetabular shell FDA Start: 03-13-2021 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 by anterior approach femoral head FDA Start: 03-13-2021 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 by anterior approach hip stem FDA Start: 03-13-2021 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 by anterior approach poly insert FDA Start: 03-13-2021 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 by anterior approach acetabular shell FDA Start: 03-13-2021 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 by anterior approach femoral head FDA Start: 03-13-2021 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 by anterior approach hip stem FDA Start: 03-13-2021 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 by anterior approach poly insert FDA Start: 03-13-2021 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 by anterior approach acetabular shell FDA Start: 03-13-2021 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 by anterior approach femoral head FDA Start: 03-13-2021 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 by anterior approach hip stem FDA Start: 03-13-2021 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 by anterior approach poly insert FDA Start: 03-13-2021 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 by anterior approach acetabular shell FDA Start: 03-13-2021 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 by anterior approach femoral head FDA Start: 03-13-2021 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 by anterior approach hip stem FDA Start: 03-13-2021 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 by anterior approach poly insert FDA Start: 03-13-2021 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 by anterior approach FDA Start: 03-13-2021 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 by anterior approach FDA Start: 03-13-2021 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 by anterior approach FDA Start: 03-13-2021 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 by anterior approach FDA Start: 03-13-2021 Incision and drainage, knee, with polyethylene liner replacement FDA Start: 10-13-2024 Incision and drainage, knee, with polyethylene liner replacement FDA Start: 11-30-2024 Incision and drainage, knee, with polyethylene liner replacement FDA Start: 11-30-2024 Incision and drainage, knee, with polyethylene liner replacement FDA Start: 11-30-2024 Incision and drainage, knee, with polyethylene liner replacement [id number]) [id number] FDA Start: 11-30-2024 SLING,VAG,JUNI A DESARA FDA Start: 01-29-2018 SLING,VAG,JUNI A DESARA FDA Start: 01-29-2018 SLING,VAG,JUNI A DESARA FDA Start: 01-29-2018 SLING,VAG,JUNI A DESARA FDA Start: 01-29-2018 SLING,VAG,JUNI A DESARA FDA Start: 01-29-2018 SLING,VAG,JUNI A DESARA FDA Start: 01-29-2018 SLING,VAG,JUNI A DESARA FDA Start: 01-29-2018 SLING,VAG,JUNI A DESARA FDA Start: 01-29-2018 SLING,VAG,JUNI A DESARA FDA Start: 01-29-2018 FDA Start: 01-29-2018 FDA Start: 11-30-2024 FDA Start: 11-30-2024 FDA Start: 11-30-2024 FDA Start: 11-30-2024 FDA Start: 11-30-2024 FDA Start: 11-30-2024 FDA Start: 11-30-2024 FDA Start: 11-30-2024 FDA Start: 11-30-2024 Goals Date Patient Goal Desired Activity /State Functional Status Date Assessment Result Facility 12-05-2024 Functional status Chair;Bathroom Privileg [facility] Work Phone: 11-15-2024 Functional status Ambulates;Bath room Privilege [facility] Work Phone: Mental Status Date Assessment Result Facility 12-05-2024 Cognitive function Voice/Name [facility] Work Phone: 11-15-2024 Cognitive function Voice/Name [facility] Work Phone: Discharge summary note 12-05-2024 Note Date & Type Note Facility 12-05-2024 Note [facility] Clinical [facility] 11-30-2024 Note Date & Type Note Facility 11-30-2024 Note [facility] Discharge summary note 11-15-2024 Note Date & Type Note Facility 11-15-2024 Note [facility] Consultation note 11-10-2024 Note Date & Type Note Facility 11-10-2024 Note [facility] Evaluation note 11-10-2024 Note Date & Type Note Facility 11-10-2024 Evaluation note Diagnosis Onset Date Resolution Infected prosthetic knee joint acute November 09 10:01pm Septic joint acute November 10:01pm Infection of prosthetic right knee joint resolved November 28, 025 3:00pm Infected prosthetic knee joint acute November 30 025 1:27pm Infected prosthetic knee joint acute December 26, 2024 9:45am Elevated liver enzymes acute Ap ril 2024 9:19am Nausea & vomiting acute January 042024 9:19am S/P flap graft acute January 10:04am [facility] Work Phone: Discharge summary note 10-17-2024 Note Date & Type Note Facility 10-17-2024 Note [facility] Discharge summary 02-04-2024 Note Date & Type Note Facility 02-04-2024 Discharge summary Note Date/Time February 04, 2024 9:33am [facility] [address] [place] [address] [address] [place] [address] / REHABILITATION SERVICES DISCHARGE SUMMARY MR#: [id number] Acct: [id number] Name: KRISTA TALAVERA Rep #: [id number] 01 : 1950 73 From: Cert. STEPHANIE West, OCS Referring Dr.: Dr. Elmo Velásquez MD Status: REG RCR Insurance: MEDICARE PART A B [facility] Discharge Summary D/C summary: It has been my pleasure to treat KRISTA TALAVERA referred by Dr. Elmo Velásquez MD, with the diagnosis of PAIN IN RIGHT KNEE ,UNILATERAL PRIMARY OASTEOARTHRITIS ,RIGHT KNEE for a total of 17 visit(s). Discharge Date: 02/04/24 Please see the following information for a summary of their discharge status. Subjective Subjective: Doing well ,, Ready for knee TKR Pain Right Knee: Pain Intensity (Out of 10): 4 Overall Improvement % Improvement: 50 Objective Objective/Function: POSTURE: mild forward posture hips/knees flexed NEURO: denies paresthesia/tingling PALAPTION: medial /lateral joint line GAIT: reciprocal pattern antalgic AROM: right knee 5-120 degrees supine flexion ,left 5-125 degrees MMT: ( peak force) quads 31.8 ,hamstrings 31,2 ,hip flexion 32.7 STAIRS: one step at time with rail Goals Goal 1:: I with Aquatic therapy program Goal Progress: Goal Met Goal 2:: Patient to demonstrate 40% improvement with less pain and increase function Goal Progress: Goal Met Goal 3:: Patient to improve LFES score by 5 points to improve QOL and function Goal Progress: Goal Met Goal 4:: Patient to improve AROM knee by 5-10 degrees to improve gait and stairs( NEW GOAL) Goal Progress: Goal Met Goal 5:: Patient to improve peak force quads/hams/hip by 5-10 # strength ( NEW GOAL) Goal Progress: Goal Met Plan Plan: D/C SCHEDULED SURGERY D/C Information d/c sentence: If there are questions or concerns regarding this patient's physical therapy, please feel free to call me at [phone]. Thank you for the referral of thispatient. Sincerely, Sanket Goodwin, PT, Cert MDT, OCS Balance/Gait/Functional tests Balance/Special Test Scores Lower Extremity Functional Score: 55 Improvement % Improvement: 50 <Electronically signed by Sanket Goodwin PT Cert. STEPHANIE, OCS> 02/04/24 0934 CC: Dr. Damian Craig MD; Dr. Elmo Velásquez MD ~ JLA Signed [facility] Work Phone: Evaluation note Note Date & Type Note Facility Evaluation note No assessment information availa ble [facility] Work Phone: Evaluation note Note Date & Type Note Facility Evaluation note Diagnosis Onset Date Preop cardiovascular exam ac [place] Essential hypertension chron ic Paroxysmal atrial fibrillation chronic [facility] Work Phone: Reason for referral (narrative) Note Date & Type Note Facility Reason for referral (narrative) No reason for referral information available [facility] Work Phone: Chief Complaint and Reason for Visit Chief Complaint SCREENING, GRANDMOTH ER HX BREAST CA Chief Complaint 1 Y FU PRE OP CAD PRE OP CAD R KNEE PAIN RX HERE Reason for Visit Preop cardiovascular exam Essential hypertension Paroxysmal atrial fibrillation Chief Complaint 1 Y FU PRE OP CAD PRE OP CAD RIGHT KNEE OSTEOARTHRITIS *DANK PROTOCOL* R KNEE PAIN RX HERE Reason for Visit Preop cardiovascular exam Essential hypertension Paroxysmal atrial fibrillation Chief Complaint 1 Y FU PRE OP CAD PRE OP CAD RIGHT KNEE OSTEOARTHRITIS *DANK PROTOCOL* PAROXYSMAL ATRIAL FIBRILLATION R KNEE PAIN RX HERE Reason for Visit Preop cardiovascular exam Essential hypertension Paroxysmal atrial fibrillation Chief Complaint 1 Y FU PRE OP CAD PRE OP CAD RIGHT KNEE OSTEOARTHRITIS *DANK PROTOCOL* PAROXYSMAL ATRIAL FIBRILLATION R KNEE PAIN RX HERE NEED LAB ORDER Reason for Visit Preop cardiovascular exam Essential hypertension Paroxysmal atrial fibrillation Chief Complaint Admit Date SEPSIS, SEPTIC KNEE November 09, 2024 1 0:01pm SEPSIS, SEPTIC KNEE November 10, 2024 7 :20am SEPSIS, SEPTIC KNEE November 10, 2024 9 :17am SEPSIS, SEPTIC KNEE November 11, 2024 7 :10am SEPSIS, SEPTIC KNEE November 11, 2024 9 :54am SEPSIS, SEPTIC KNEE November 12, 2024 7 :12am SEPSIS, SEPTIC KNEE November 12, 2024 1 0:01am SEPSIS, SEPTIC KNEE November 13, 2024 7 :37am SEPSIS, SEPTIC KNEE November 13, 2024 1 0:42am SEPSIS, SEPTIC KNEE November 14, 2024 9:14am SEPSIS, SEPTIC KNEE November 14, 2024 5:35pm SEPSIS, SEPTIC KNEE November 15, 2024 12:04pm WOUND November 21, 2024 4:54pm WEEKLY BMP, CBC, ESR November 23, 2024 3:16pm WOUND November 28, 2024 12:00pm WOUND November 28, 2024 3:00pm I&D with [employer], Knee COMBO WITH SISKA November 30, 2024 7:19am I&D with [employer], Knee COMBO WITH SISKA November 30, 2024 1:27pm I&D with [employer], Knee COMBO WITH SISKA December 01, 2024 10:40am I&D with [employer], Knee COMBO WITH SISKA December 01, 2024 11:59am I&D with [employer], Knee COMBO WITH SISKA December 02, 2024 8:12am I&D with [employer], Knee COMBO WITH SISKA December 02, 2024 8:25pm I&D with [employer], Knee COMBO WITH SISKA December 03, 2024 8:39am I&D with [employer], Knee COMBO WITH SISKA December 03, 2024 10:35am I&D with [employer], Knee COMBO WITH SISKA December 04, 2024 10:50am I&D with [employer], Knee COMBO WITH SISKA December 04, 2024 12:37pm I&D with [employer], Knee COMBO WITH SISKA December 05, 2024 8:27am I&D with [employer], Knee COMBO WITH SISKA December 05, 2024 9:22am WOUND December 12, 2024 10: 52am WOUND December 19, 2024 10: 06am WOUND December 26, 2024 9:4 5am WOUND December 26, 2024 10: 26am Nausea/vomiting January 04, 2025 9:19 am E-ORDER January 04, 2025 10:3 2am ELEVATED LIVER ENZYMES AND NAUSEA January 10, 2025 9:35am FOLLOW UP January 27, 2025 10: 04am 6 W FU March 10, 2025 9:10a m Reason for Visit Admit Date Infected prosthetic knee joint November 09, 2024 10:01pm Septic joint November 09, 2024 1 0:01pm Infection of prosthetic right knee joint November 28, 2024 3:00pm Infected prosthetic knee joint November 30, 2024 1:27pm Infected prosthetic knee joint December 9:45am Elevated liver enzymes January 04, 2025 9 :19am Nausea & vomiting January 04, 2025 9:19 am S/P flap graft January 27, 2025 10: 04am Family History No Family History Records Found Relationship Condition Age at Onset Recorded Date/T jayro mother Coronary artery disease Unknown Myocardial infarction 80 father Asthma Unknown Chronic obstructive pulmonary disease Unk nown brother Malignant neoplasm of colon Unknown Former smoker Unknown grandmother Malignant neoplasm of breast Unknown grandfather Malignant neoplasm of colon Unknown Advance Directives No Advanced Directives Records Found Advance Directive Response Recorded Date/ Time Living Will Yes May 08, 2021 3:19pm Power of Stretch Press Operator Yes May 08 3:19pm Advance Directive Response Recorded Date/ Time Living Will Yes November 10 12:30am Do you have a Healthcare Power of Stretch Press Operator? Yes November 10, 2024 12:30am Name of Medical Power of Stretch Press Operator Luke - hilda November 10, 2024 12:30am Living Will Yes November 30 6:10pm Do you have a Healthcare Power of Stretch Press Operator? Yes November 30, 2024 6:10pm Name of Medical Power of Stretch Press Operator LUKE TALAVERA November 30, 2024 6:10pm Summary Purpose Additional Source Comments Care Teams (unrecognized sec tion and content) Team Status: Active Member Role Status Dates Dr. Damian Craig MD Family Provider Active Dr. Damian Craig MD Primary Care Provider Active Team Status: Inactive Member Role Status Dates Dr. Damian Craig MD Primary Care Provider Active Araseli Roberts NP-C Attending Provider, Referring Pr ovider Active Team Status: Inactive Member Role Status Dates Dr. Damian Craig MD Primary Care Provider, Attending P rovider Active Team Status: Inactive Member Role Status Dates Dr. Damian Craig MD Primary Care Provider, Referring P rovider Active Dr. Xander Fitzgerald MD Attending Provider Active Team Status: Active Member Role Status Dates Dr. Damian Craig MD Primary Care Provider Active Dr. Xander Fitzgerald MD Attending Provider, Referring Provider, Other Provider Active Team Status: Inactive Member Role Status Dates Dr. Damian Craig MD Primary Care Provider Active Dr. Xander Fitzgerald MD Attending Provider, Referring Pro vider Active Team Status: Active Member Role Status Dates Dr. Damian Craig MD Primary Care Provider Active Dr. Elmo Velásquez MD Attending Provider, Referring P rovider Active Team Status: Inactive Member Role Status Dates Dr. Damian Craig MD Primary Care Provider Active Dr. Elmo Velásquez MD Attending Provider, Referring P rovider Active Team Status: Active Member Role Status Dates Dr. Damian Craig MD Primary Care Provider, Attending P rovider Active Team Status: Active Member Role Status Dates Dr. Damian Craig MD Primary Care Provider Active Dr. Xander Fitzgerald MD Attending Provider Active Team Status: Active Member Role Status Dates Dr. Damian Craig MD Primary Care Provider Active Yoandy Carson ASSEMBLER BICYCLE, ASSEMBLER BICYCLE-C Attending Provider, Referring Pro vider Active Team Status: Inactive Member Role Status Dates Dr. Damian Craig MD Primary Care Provider Active Yoandy Carson ASSEMBLER BICYCLE, ASSEMBLER BICYCLE-C Attending Provider, Referring Pro vider Active Team Status: Active Member Role Status Dates Dr. Damian Craig MD Primary Care Provider Active Dr. Elmo Velásquez MD Attending Provider Active Team Status: Active Member Role Status Dates Dr. Damian Craig MD Primary Care Provider Active Dr. Xander Fitzgerald MD Attending Provider, Referring Pro vider Active Team Status: Inactive Member Role Status Dates Dr. Damian Craig MD Primary Care Provider Active Dr. Elmo Velásquez MD Attending Provider Active Team Status: Active Member Role Status Dates Dr. Damian Craig MD Primary Care Provider Active Team Status: Inactive Member Role Status Dates Dr. Damian Craig MD Primary Care Provider Active Start: November 09, 2024 End: November 15, 2024 Dr. Robbie Harrell DO Emergency Provider Activ e Start: November 09, 2024 End: November 15, 2024 Dr. Shadia Nance MD Admit Provider Active St art: November 09, 2024 End: November 15, 2024 Dr. Shadia Nance MD Other Provider Active St art: November 09, 2024 End: November 15, 2024 Dr. Elmo Velásquez MD Other Provider Active Sta rt: November 09, 2024 End: November 15, 2024 Dr. Ariel Chisholm MD Other Provider Active Star t: November 09, 2024 End: November 15, 2024 Dr. Ariel Traylor MD Other Provider Active Start: November 09, 2024 End: November 15, 2024 Dr. Raymond Patricio MD Attending Provider Active Start: November 09, 2024 End: November 15, 2024 Dr. Aaron Tony MD Other Provider Active Star t: November 09, 2024 End: November 15, 2024 Team Status: Active Member Role Status Dates Dr. Damian Craig MD Primary Care Provider Active Start: November 10, 2024 Dr. Damian Craig MD Referring Provider Active St art: November 10, 2024 Dr. Robbie Harrell DO Emergency Provider Activ e Start: November 10, 2024 Dr. Shadia Nance MD Admit Provider Active St art: November 10, 2024 Dr. Shadia Nance MD Other Provider Active St art: November 10, 2024 Dr. Donald Loyola MD Other Provider Active Start: November 10, 2024 Dr. Bradford Holder MD Other Provider Active Start: November 10, 2024 Dr. Shahzad Watts MD Other Provider Active Star t: November 10, 2024 Dr. Jessee Arreaga , Other Provider Active Start : November 10, 2024 Dr. Aaron Oviedo MD Other Provider Active Sta rt: November 10, 2024 Dr. Yobani Parker MD Other Provider Active St art: November 10, 2024 Dr. Christos Grier MD Other Provider Active S tart: November 10, 2024 Dr. Zelda Walters MD Other Provider Active Start: November 10, 2024 Dr. Gonzalez Larry MD Other Provider Active Start : November 10, 2024 Dr. Darren Garrison MD Other Provider Active Start: November 10, 2024 Dr. Tadeo Greenfield MD Other Provider Active Start : November 10, 2024 Dr. Aleena Couch MD Other Provider Active Star t: November 10, 2024 Dr. Fabian Goins MD Other Provider Active Sta rt: November 10, 2024 Dr. Patricia Zaidi MD Other Provider Active Sta rt: November 10, 2024 Dr. Chavo Srinivasan MD Other Provider Active Star t: November 10, 2024 Dr. Mohsen Spencer MD Other Provider Active St art: November 10, 2024 Dr. Pierre Segovia MD Other Provider Active Star t: November 10, 2024 Dr. Shawn Menchaca , Other Provider Active St art: November 10, 2024 Dr. Lucille Howard MD Other Provider Active Start: November 10, 2024 Dr. Mateo Alcazar MD Other Provider Active St art: November 10, 2024 Dr. Chidi Littlejohn DO Other Provider Active Start: November 10, 2024 Dr. Anthony Baum MD Other Provider Active Star t: November 10, 2024 Dr. Radames Santoyo MD Other Provider Active Sta rt: November 10, 2024 Dr. Elmo Velásquez MD Other Provider Active Sta rt: November 10, 2024 Dr. Ariel Chisholm MD Attending Provider Active Start: November 10, 2024 Dr. Ariel Chisholm MD Other Provider Active Star t: November 10, 2024 Dr. Ariel Traylor MD Other Provider Active Start: November 10, 2024 Dr. Aaron Tony MD Other Provider Active Star t: November 10, 2024 Team Status: Active Member Role Status Dates Dr. Damian Craig MD Primary Care Provider Active Start: November 10, 2024 Dr. Robbie Harrell DO Emergency Provider Activ e Start: November 10, 2024 Dr. Shadia Nance MD Admit Provider Active St art: November 10, 2024 Dr. Shadia Nance MD Other Provider Active St art: November 10, 2024 Dr. Donald Loyola MD Other Provider Active Start: November 10, 2024 Dr. Bradford Holder MD Other Provider Active Start: November 10, 2024 Dr. Shahzad Watts MD Other Provider Active Star t: November 10, 2024 Dr. Jessee Arreaga DO Other Provider Active Start : November 10, 2024 Dr. Aaron Oviedo MD Other Provider Active Sta rt: November 10, 2024 Dr. Yobani Parker MD Other Provider Active St art: November 10, 2024 Dr. Christos Grier MD Other Provider Active S tart: November 10, 2024 Dr. Zelda Walters MD Other Provider Active Start: November 10, 2024 Dr. Gonzalez Larry MD Other Provider Active Start : November 10, 2024 Dr. Darren Garrison MD Other Provider Active Start: November 10, 2024 Dr. Tadeo Greenfield MD Other Provider Active Start : November 10, 2024 Dr. Aleena Couch MD Other Provider Active Star t: November 10, 2024 Dr. Fabian Goins MD Other Provider Active Sta rt: November 10, 2024 Dr. Patricia Zaidi MD Other Provider Active Sta rt: November 10, 2024 Dr. Chavo Srinivasan MD Other Provider Active Star t: November 10, 2024 Dr. Mohsen Spencer MD Other Provider Active St art: November 10, 2024 Dr. Pierre Segovia MD Other Provider Active Star t: November 10, 2024 Dr. Shawn Menchaca DO Other Provider Active St art: November 10, 2024 Dr. Lucille Howard MD Other Provider Active Start: November 10, 2024 Dr. Mateo Alcazar MD Other Provider Active St art: November 10, 2024 Dr. Chidi Littlejohn DO Other Provider Active Start: November 10, 2024 Dr. Anthony Baum MD Other Provider Active Star t: November 10, 2024 Dr. Radames Santoyo MD Other Provider Active Sta rt: November 10, 2024 Dr. Elmo Velásquez MD Other Provider Active Sta rt: November 10, 2024 Dr. Ariel Chisholm MD Other Provider Active Star t: November 10, 2024 Dr. Ariel Traylor MD Other Provider Active Start: November 10, 2024 Dr. Aaron Tony MD Attending Provider Active Start: November 10, 2024 Dr. Aaron Tony MD Other Provider Active Star t: November 10, 2024 Team Status: Active Member Role Status Dates Dr. Damian Craig MD Primary Care Provider Active Start: November 10, 2024 Dr. Damian Khoury MD Attending Provider Active S tart: November 10, 2024 Dr. Shadia Nance MD Referring Provider Active Start: November 10, 2024 Team Status: Active Member Role Status Dates Dr. Damian Craig MD Primary Care Provider Active Start: November 11, 2024 Dr. Robbie Harrell DO Emergency Provider Activ e Start: November 11, 2024 Dr. Shadia Nance MD Admit Provider Active St art: November 11, 2024 Dr. Shadia Nance MD Other Provider Active St art: November 11, 2024 Dr. Elmo Velásquez MD Other Provider Active Sta rt: November 11, 2024 Dr. Ariel Chisholm MD Other Provider Active Star t: November 11, 2024 Dr. Ariel Traylor MD Other Provider Active Start: November 11, 2024 Dr. Aaron Tony MD Attending Provider Active Start: November 11, 2024 Dr. Aaron Tony MD Other Provider Active Star t: November 11, 2024 Team Status: Active Member Role Status Dates Dr. Damian Craig MD Primary Care Provider Active Start: November 11, 2024 Dr. Robbie Harrell DO Emergency Provider Activ e Start: November 11, 2024 Dr. Shadia Nance MD Admit Provider Active St art: November 11, 2024 Dr. Shadia Nance MD Other Provider Active St art: November 11, 2024 Dr. Elmo Velásquez MD Other Provider Active Sta rt: November 11, 2024 Dr. Ariel Chisholm MD Attending Provider Active Start: November 11, 2024 Dr. Ariel Chisholm MD Other Provider Active Star t: November 11, 2024 Dr. Ariel Traylor MD Other Provider Active Start: November 11, 2024 Dr. Aaron Tony MD Other Provider Active Star t: November 11, 2024 Team Status: Active Member Role Status Dates Dr. Damian Craig MD Primary Care Provider Active Start: November 12, 2024 Dr. Robbie Harrell DO Emergency Provider Activ e Start: November 12, 2024 Dr. Shadia Nance MD Admit Provider Active St art: November 12, 2024 Dr. Shadia Nance MD Other Provider Active St art: November 12, 2024 Dr. Elmo Velásquez MD Other Provider Active Sta rt: November 12, 2024 Dr. Ariel Chisholm MD Attending Provider Active Start: November 12, 2024 Dr. Ariel Chisholm MD Other Provider Active Star t: November 12, 2024 Dr. Ariel Traylor MD Other Provider Active Start: November 12, 2024 Dr. Aaron Tony MD Other Provider Active Star t: November 12, 2024 Team Status: Active Member Role Status Dates Dr. Damian Craig MD Primary Care Provider Active Start: November 12, 2024 Dr. Robbie Harrell DO Emergency Provider Activ e Start: November 12, 2024 Dr. Shadia Nance MD Admit Provider Active St art: November 12, 2024 Dr. Shadia Nance MD Other Provider Active St art: November 12, 2024 Dr. Elmo Velásquez MD Other Provider Active Sta rt: November 12, 2024 Dr. Ariel Chisholm MD Other Provider Active Star t: November 12, 2024 Dr. Ariel Traylor MD Other Provider Active Start: November 12, 2024 Dr. Aaron Tony MD Attending Provider Active Start: November 12, 2024 Dr. Araon Tony MD Other Provider Active Star t: November 12, 2024 Team Status: Active Member Role Status Dates Dr. Damian Craig MD Primary Care Provider Active Start: November 13, 2024 Dr. Robbie Harrell DO Emergency Provider Activ e Start: November 13, 2024 Dr. Shadia Nance MD Admit Provider Active St art: November 13, 2024 Dr. Shadia Nance MD Other Provider Active St art: November 13, 2024 Dr. Elmo Velásquez MD Other Provider Active Sta rt: November 13, 2024 Dr. Ariel Chisholm MD Other Provider Active Star t: November 13, 2024 Dr. Ariel Traylor MD Other Provider Active Start: November 13, 2024 Dr. Aaron Tony MD Attending Provider Active Start: November 13, 2024 Dr. Aaron Tony MD Other Provider Active Star t: November 13, 2024 Team Status: Active Member Role Status Dates Dr. Damian Craig MD Primary Care Provider Active Start: November 13, 2024 Dr. Robbie Harrell , DO Emergency Provider Activ e Start: November 13, 2024 Dr. Shadia Nance MD Admit Provider Active St art: November 13, 2024 Dr. Shadia Nance MD Other Provider Active St art: November 13, 2024 Dr. Elmo Velásquez MD Other Provider Active Sta rt: November 13, 2024 Dr. Ariel Chisholm MD Attending Provider Active Start: November 13, 2024 Dr. Ariel Chisholm MD Other Provider Active Star t: November 13, 2024 Dr. Ariel Traylor MD Other Provider Active Start: November 13, 2024 Dr. Aaron Tony MD Other Provider Active Star t: November 13, 2024 Team Status: Active Member Role Status Dates Dr. Damian Craig MD Primary Care Provider Active Start: November 14, 2024 Dr. Robbie Harrell DO Emergency Provider Activ e Start: November 14, 2024 Dr. Sahdia Nance MD Admit Provider Active St art: November 14, 2024 Dr. Shadia Nance MD Other Provider Active St art: November 14, 2024 Dr. Elmo Velásquez MD Other Provider Active Sta rt: November 14, 2024 Dr. Ariel Chisholm MD Attending Provider Active Start: November 14, 2024 Dr. Ariel Chisholm MD Other Provider Active Star t: November 14, 2024 Dr. Ariel Traylor MD Other Provider Active Start: November 14, 2024 Dr. Raymond Patricio MD Other Provider Active Start: November 14, 2024 Dr. Aaron Tony MD Other Provider Active Star t: November 14, 2024 Team Status: Active Member Role Status Dates Dr. Damian Craig MD Primary Care Provider Active Start: November 14, 2024 Dr. Robbie Harrell DO Emergency Provider Activ e Start: November 14, 2024 Dr. Shadia Nance MD Admit Provider Active St art: November 14, 2024 Dr. Shadia Nance MD Other Provider Active St art: November 14, 2024 Dr. Elmo Velásquez MD Other Provider Active Sta rt: November 14, 2024 Dr. Ariel Chisholm MD Other Provider Active Star t: November 14, 2024 Dr. Ariel Traylor MD Other Provider Active Start: November 14, 2024 Dr. Raymond Patricio MD Attending Provider Active Start: November 14, 2024 Dr. Raymond Patricio MD Other Provider Active Start: November 14, 2024 Dr. Aaron Tony MD Other Provider Active Star t: November 14, 2024 Team Status: Active Member Role Status Dates Dr. Damian Craig MD Primary Care Provider Active Start: November 15, 2024 Dr. Robbie Harrell DO Emergency Provider Activ e Start: November 15, 2024 Dr. Shadia Nance MD Admit Provider Active St art: November 15, 2024 Dr. Shadia Nance MD Other Provider Active St art: November 15, 2024 Dr. Elmo Velásquez MD Other Provider Active Sta rt: November 15, 2024 Dr. Ariel Chisholm MD Other Provider Active Star t: November 15, 2024 Dr. Ariel Traylor MD Other Provider Active Start: November 15, 2024 Dr. Raymond Patricio MD Attending Provider Active Start: November 15, 2024 Dr. Raymond Patricio MD Other Provider Active Start: November 15, 2024 Dr. Aaron Tony MD Other Provider Active Star t: November 15, 2024 Team Status: Active Member Role Status Dates Dr. Damian Craig MD Primary Care Provider Active Start: November 21, 2024 Dr. Ariel Chisholm MD Attending Provider Active Start: November 21, 2024 Dr. Ariel Chisholm MD Referring Provider Active Start: November 21, 2024 Dr. Ariel Chisholm MD Other Provider Active Star t: November 21, 2024 Team Status: Inactive Member Role Status Dates Dr. Damian Craig MD Primary Care Provider Active Start: November 23, 2024 End: December 02, 2024 Dr. Ariel Traylor MD Attending Provider Active Start: November 23, 2024 End: December 02, 2024 Dr. Ariel Traylor MD Referring Provider Active Start: November 23, 2024 End: December 02, 2024 Team Status: Active Member Role Status Dates Dr. Damian Craig MD Primary Care Provider Active Start: November 28, 2024 Dr. Ariel Chisholm MD Attending Provider Active Start: November 28, 2024 Dr. Ariel Chisholm MD Referring Provider Active Start: November 28, 2024 Dr. Ariel Chisholm MD Other Provider Active Star t: November 28, 2024 Team Status: Inactive Member Role Status Dates Dr. Damian Craig MD Primary Care Provider Active Start: November 28, 2024 End: December 02, 2024 Dr. Ariel Cihsholm MD Attending Provider Active Start: November 28, 2024 End: December 02, 2024 Dr. Ariel Chisholm MD Referring Provider Active Start: November 28, 2024 End: December 02, 2024 Team Status: Active Member Role Status Dates Dr. Damian Craig MD Primary Care Provider Active Start: November 30, 2024 Dr. Elmo Velásquez MD Admit Provider Active Sta rt: November 30, 2024 Dr. Elmo Velásquez MD Referring Provider Active Start: November 30, 2024 Dr. Elmo Velásquez MD Other Provider Active Sta rt: November 30, 2024 Dr. Ariel Chisholm MD Attending Provider Active Start: November 30, 2024 Dr. Ariel Chisholm MD Other Provider Active Star t: November 30, 2024 Team Status: Inactive Member Role Status Dates Dr. Damian Craig MD Primary Care Provider Active Start: November 30, 2024 End: December 05, 2024 Dr. Elmo Velásquez MD Admit Provider Active Sta rt: November 30, 2024 End: December 05, 2024 Dr. Elmo Velásquez MD Attending Provider Active Start: November 30, 2024 End: December 05, 2024 Dr. Elmo Velásquez MD Referring Provider Active Start: November 30, 2024 End: December 05, 2024 Dr. Ariel Chisholm MD Other Provider Active Star t: November 30, 2024 End: December 05, 2024 Dr. Raymond Patricio MD Other Provider Active Start: November 30, 2024 End: December 05, 2024 Dr. Ariel Traylor MD Other Provider Active Start: November 30, 2024 End: December 05, 2024 Team Status: Active Member Role Status Dates Dr. Damian Craig MD Primary Care Provider Active Start: December 01, 2024 Dr. Elmo Velásquez MD Admit Provider Active Sta rt: December 01, 2024 Dr. Elmo Velásquez MD Referring Provider Active Start: December 01, 2024 Dr. Elmo Velásquez MD Other Provider Active Sta rt: December 01, 2024 Dr. Ariel Chisholm MD Attending Provider Active Start: December 01, 2024 Dr. Ariel Chisholm MD Other Provider Active Star t: December 01, 2024 Dr. Raymond Patricio MD Other Provider Active Start: December 01, 2024 Team Status: Active Member Role Status Dates Dr. Damian Craig MD Primary Care Provider Active Start: December 01, 2024 Dr. Elom Velásquez MD Admit Provider Active Sta rt: December 01, 2024 Dr. Elmo Velásquez MD Referring Provider Active Start: December 01, 2024 Dr. Elmo Velásquez MD Other Provider Active Sta rt: December 01, 2024 Dr. Ariel Chisholm MD Other Provider Active Star t: December 01, 2024 Dr. Raymond Patricio MD Attending Provider Active Start: December 01, 2024 Dr. Raymond Patricio MD Other Provider Active Start: December 01, 2024 Team Status: Active Member Role Status Dates Dr. Damian Craig MD Primary Care Provider Active Start: December 02, 2024 Dr. Elmo Velásquez MD Admit Provider Active Sta rt: December 02, 2024 Dr. Elmo Velásquez MD Referring Provider Active Start: December 02, 2024 Dr. Elmo Velásquez MD Other Provider Active Sta rt: December 02, 2024 Dr. Ariel Chisholm MD Attending Provider Active Start: December 02, 2024 Dr. Ariel Chisholm MD Other Provider Active Star t: December 02, 2024 Dr. Raymond Patricio MD Other Provider Active Start: December 02, 2024 Team Status: Active Member Role Status Dates Dr. Damian Craig MD Primary Care Provider Active Start: December 02, 2024 Dr. Elmo Velásquez MD Admit Provider Active Sta rt: December 02, 2024 Dr. Elmo Velásquez MD Other Provider Active Sta rt: December 02, 2024 Dr. Ariel Chisholm MD Other Provider Active Star t: December 02, 2024 Dr. Raymond Patricio MD Attending Provider Active Start: December 02, 2024 Dr. Raymond Patricio MD Other Provider Active Start: December 02, 2024 Team Status: Active Member Role Status Dates Dr. Damian Craig MD Primary Care Provider Active Start: December 03, 2024 Dr. Elmo Velásquez MD Admit Provider Active Sta rt: December 03, 2024 Dr. Elmo Velásquez MD Referring Provider Active Start: December 03, 2024 Dr. Elmo Velásquez MD Other Provider Active Sta rt: December 03, 2024 Dr. Ariel Chisholm MD Attending Provider Active Start: December 03, 2024 Dr. Ariel Chisholm MD Other Provider Active Star t: December 03, 2024 Dr. Raymond Patricio MD Other Provider Active Start: December 03, 2024 Team Status: Active Member Role Status Dates Dr. Damian Craig MD Primary Care Provider Active Start: December 03, 2024 Dr. Elmo Velásquez MD Admit Provider Active Sta rt: December 03, 2024 Dr. Elmo Velásquez MD Other Provider Active Sta rt: December 03, 2024 Dr. Ariel Chisholm MD Other Provider Active Star t: December 03, 2024 Dr. Raymond Patricio MD Attending Provider Active Start: December 03, 2024 Dr. Raymond Patricio MD Other Provider Active Start: December 03, 2024 Team Status: Active Member Role Status Dates Dr. Damian Craig MD Primary Care Provider Active Start: December 04, 2024 Dr. Elmo Velásquez MD Admit Provider Active Sta rt: December 04, 2024 Dr. Elmo Velásquez MD Other Provider Active Sta rt: December 04, 2024 Dr. Ariel Chisholm MD Other Provider Active Star t: December 04, 2024 Dr. Raymond Patricio MD Attending Provider Active Start: December 04, 2024 Dr. Raymond Patricio MD Other Provider Active Start: December 04, 2024 Team Status: Active Member Role Status Dates Dr. Damian Craig MD Primary Care Provider Active Start: December 04, 2024 Dr. Elmo Velásquez MD Admit Provider Active Sta rt: December 04, 2024 Dr. Elmo Velásquez MD Referring Provider Active Start: December 04, 2024 Dr. Elmo Velásquze MD Other Provider Active Sta rt: December 04, 2024 Dr. Ariel Chisholm MD Attending Provider Active Start: December 04, 2024 Dr. Ariel Chisholm MD Other Provider Active Star t: December 04, 2024 Dr. Raymond Patricio MD Other Provider Active Start: December 04, 2024 Team Status: Active Member Role Status Dates Dr. Damian Craig MD Primary Care Provider Active Start: December 05, 2024 Dr. Elmo Velásquez MD Admit Provider Active Sta rt: December 05, 2024 Dr. Elmo Velásquez MD Referring Provider Active Start: December 05, 2024 Dr. Elmo Velásquez MD Other Provider Active Sta rt: December 05, 2024 Dr. Ariel Chisholm MD Attending Provider Active Start: December 05, 2024 Dr. Ariel Chisholm MD Other Provider Active Star t: December 05, 2024 Dr. Raymond Patricio MD Other Provider Active Start: December 05, 2024 Dr. Ariel Traylor MD Other Provider Active Start: December 05, 2024 Team Status: Active Member Role Status Dates Dr. Damian Craig MD Primary Care Provider Active Start: December 05, 2024 Dr. Elmo Velásquez MD Admit Provider Active Sta rt: December 05, 2024 Dr. Elmo Velásquez MD Other Provider Active Sta rt: December 05, 2024 Dr. Ariel Chisholm MD Other Provider Active Star t: December 05, 2024 Dr. Raymond Patricio MD Attending Provider Active Start: December 05, 2024 Dr. Raymond Patricio MD Other Provider Active Start: December 05, 2024 Dr. Ariel Traylor MD Other Provider Active Start: December 05, 2024 Team Status: Active Member Role Status Dates Dr. Damian Craig MD Primary Care Provider Active Start: December 12, 2024 Dr. Ariel Chisholm MD Attending Provider Active Start: December 12, 2024 Dr. Ariel Chisholm MD Referring Provider Active Start: December 12, 2024 Dr. Ariel Chisholm MD Other Provider Active Star t: December 12, 2024 Team Status: Active Member Role Status Dates Dr. Damian Craig MD Primary Care Provider Active Start: December 19, 2024 Dr. Ariel Chisholm MD Attending Provider Active Start: December 19, 2024 Dr. Ariel Chisholm MD Referring Provider Active Start: December 19, 2024 Dr. Ariel Chisholm MD Other Provider Active Star t: December 19, 2024 Team Status: Inactive Member Role Status Dates Dr. Damian Craig MD Primary Care Provider Active Start: December 26, 2024 End: January 02, 2025 Dr. Ariel Chisholm MD Attending Provider Active Start: December 26, 2024 End: January 02, 2025 Dr. Ariel Chisholm MD Referring Provider Active Start: December 26, 2024 End: January 02, 2025 Team Status: Active Member Role Status Dates Dr. Damian Craig MD Primary Care Provider Active Start: December 26, 2024 Dr. Ariel Chisholm MD Attending Provider Active Start: December 26, 2024 Dr. Ariel Chisholm MD Referring Provider Active Start: December 26, 2024 Dr. Ariel Chisholm MD Other Provider Active Star t: December 26, 2024 Team Status: Inactive Member Role Status Dates Dr. Damian Craig MD Primary Care Provider Active Start: January 04, 2025 End: January 04, 2025 Dr. Damian Craig MD Referring Provider Active St art: January 04, 2025 End: January 04, 2025 JACINTA Diaz Attending Provider Active Start: January 04, 2025 End: January 04, 2025 Team Status: Inactive Member Role Status Dates Dr. Damian Craig MD Primary Care Provider Active Start: January 04, 2025 End: January 04, 2025 JACINTA Diaz Attending Provider Active Start: January 04, 2025 End: January 04, 2025 JACINTA Diaz Referring Provider Active Start: January 04, 2025 End: January 04, 2025 Team Status: Inactive Member Role Status Dates Dr. Damian Craig MD Primary Care Provider Active Start: January 10, 2025 End: January 10, 2025 JACINTA Diaz Attending Provider Active Start: January 10, 2025 End: January 10, 2025 JACINTA Diaz Referring Provider Active Start: January 10, 2025 End: January 10, 2025 Team Status: Inactive Member Role Status Dates Dr. Damian Craig MD Primary Care Provider Active Start: January 27, 2025 End: January 27, 2025 Dr. Damian Craig MD Referring Provider Active St art: January 27, 2025 End: January 27, 2025 Dr. Ariel Chisholm MD Attending Provider Active Start: January 27, 2025 End: January 27, 2025 Team Status: Inactive Member Role Status Dates Dr. Damian Craig MD Primary Care Provider Active Start: March 10, 2025 End: March 10, 2025 Dr. Damian Craig MD Referring Provider Active St art: March 10, 2025 End: March 10, 2025 Dr. Ariel Chisholm MD Attending Provider Active Start: March 10, 2025 End: March 10, 2025 Goals (unrecognized section and content) Goals may be documented in a n alternate sectionGoals may be documented in an alternate sectionGoals may be documented in an alternate sectionGoals may be documented in an alternate sectionGoals may be documented in an alternate sectionGoals may be documented in an alternate sectionGoals may be documented in an alternate sectionGoals may be documented in an alternate sectionGoals may be documented in an alternate section INFORMATION SOURCE (unrecogn ized section and content) DATE CREATED AUTHOR 03/12/2025 [facility] FOR RECORDS PERTAINING TO PATIENTS WHO ARE OR HAVE BEEN ENROLLED IN A CHEMICAL DEPENDENCY/SUBSTANCEABUSE PROGRAM, SOME INFORMATION MAY BE OMITTED. This clinical summary was aggregated from multiple sources. Caution should be exercised in using it in the provision of clinical care. This summary normalizes information from multiple sources, and as a consequence, information in this document may materially change the coding, format and clinical context of patient data. In addition, data may be omitted in some cases. CLINICAL DECISIONS SHOULD BE BASED ON THE PRIMARY CLINICAL RECORDS. [facility] [employer] [address] [facility]. provides no warranty or guarantee of the accuracy or completeness of information in this document.
[2025-03-13] MEDS: Lactated Ringers 1,000 ML 15 ML IV (06:07)
--- NOTE | 2025-03-13 06:30 | EGD_PTH ---
PATIENT: KRISTA TALAVERA LOC: EN U#:[id number] AGE/SX: 75/F ROOM: RE03/13/[address]: Dr. French Coe DO : 1950 BED: DIS: 03/13/2025 SPEC #: [id number] RECD: 03/13/25 11:22 STATUS: ALEXEI RERoshni #: [id number] ZHEN: 03/13/25 06:[address]: French Coe DEPT: SURGICAL PATHOLOGY RECD BY: Chu Pugh ENTERED: 03/13/25 12:10 SP TYPE: EGD BIOPSY TONY DR: Dr. Damian Craig MD Tissues: A - Duodenum, NOS B - Gastric mucous membrane C - Esophagus, NOS Procedures: Immunohistochemical Stains Surgery Specimen Level IV HEADER OPERATION: EGD with biopsy PRE-OP DIAGNOSIS: Elevated liver enzymes, nausea/vomiting TISSUE SUBMITTED: A- Duodenum biopsy, B- Gastric body biopsy, C- Distal esophagus biopsy MICROSCOPIC DIAGNOSIS A. Small intestine, duodenum, biopsies: * Benign duodenal mucosa without active inflammation or architectural distortion B. Stomach, gastric body: * Oxyntic mucosa with slight chronic inflammation * An immunohistochemical stain for Helicobacter pylori is negative C. 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 All matched controls reacted appropriately. These tests were developed and their performance characteristics determined by [facility]. They may not have been cleared or approved by the [place]. Food and Drug Administration. The FDA has determined that such clearance or approval is not necessary. The above immunohistochemical/dualISH markers are ordered and reviewed by the Pathologist. GROSS DESCRIPTION A. Received in fixative is one container labeled with the patient's name and designated Duodenum biopsy. The specimen consists of two irregular fragments of light steward soft tissue that in aggregate measure 0.7 x 0.5 x 0.2 cm. The specimen is totally submitted in one cassette. B. Received in fixative is one container labeled with the patient's name and designated Gastric body biopsy. The specimen consists of two irregular fragments of light steward soft tissue that in aggregate measure 0.9 x 0.7 x 0.2 cm. The specimen is totally submitted in one cassette. C. Received in fixative is one container labeled with the patient's name and designated Distal esophagus biopsy. The specimen consists of multiple irregular fragments of light steward soft tissue that in aggregate measure 1 x 0.5 x 0.2 cm. The specimen is totally submitted in one cassette. MS/mr 03/13/2025 CPT:[id number]
--- NOTE | 2025-03-13 06:37 | PCM.PRE.AN2 ---
ASA Classification* ASA Classification ASA Classification: 3 Assessment & Plan Anesthesia* Anesthesia Assessment Anesthesia Assessment: Discussed sedation and/or anesthesia options, risks, benefits, and alternatives with patient/parents/legal guardian/POA. Questions invited. The patient/parents/legal guardian/POA seems to understand and agrees to proceed with anesthesia plan. Reviewed the physical assessment, medical history, allergy history and patient home medications list prior to surgery/procedure/anesthetic and documented any changes. Performed airway and anesthesia risk assessments. Anesthesia Type Anesthesia Type: MAC Anesthesia Focused Assessment* Temperature: 97.6 F Pulse Rate: 69 Blood Pressure: 145/53 Respiratory Rate: 18 Pulse Ox: 96 Airway Assessment Mouth opens: >3 cm Mallampati Score: II Labs Anesthesia Preop lab: CBC WBC 7.2 K/mm3 (4.4-11.0) 01/04/25 10:48 01/04/25 RBC 4.13 M/mm3 (4.2-5.4) L 01/04/25 10:48 01/04/25 Hgb 11.8 g/dL (12.0-15.0) L 01/04/25 10:48 01/04/25 Hct 36.8 % (37-47) L 01/04/25 10:48 01/04/25 Plt Count 254 K/mm3 (150-450) 01/04/25 10:48 01/04/25 CHEMISTRY Potassium 4.5 mmol/L (3.3-5.1) 01/04/25 10:48 01/04/25 Sodium 139 mmol/L (133-145) 01/04/25 10:48 01/04/25 Magnesium 2.1 mg/dL (1.6-2.6) 11/14/24 05:27 11/14/24 Phosphorus 3.9 mg/dL (2.5-4.9) 11/14/24 05:27 11/14/24 BUN 13 mg/dL (4-19) 01/04/25 10:48 01/04/25 Creatinine 0.57 mg/dL (0.70-1.20) L 01/04/25 10:48 01/04/25 Glucose 111 mg/dL (70-99) H 01/04/25 10:48 01/04/25 POC Glucose 85 mg/dL (74-106) 10/13/24 12:25 10/13/24 TSH 1.72 uIU/mL (0.358-3.74) 04/08/24 12:45 04/08/24 COAG PT 17.0 SECONDS (11.7-14.9) H 11/09/24 23:35 11/09/24 Pre-Assessment Diagnosis/Proposed Procedure Planned Operative Procedure(s): EGD Anesthesia History 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 When Was Last Pacemaker Check QUESTION #4 FULL TEXT: You/Your Family Experience fever (hyperthermia) with Anesthesia Last Oral Intake Last Oral intake: Last Oral Intake NPO since 23:00 03/13/25 05:56 Meds taken in AM with sips of No 03/13/25 05:56 water? Meds patient instructed to take am of surgery PONV PONV - oracle software engineer: PONV - oracle software engineer Female Yes 03/08/25 16:39 HX of Motion Sickness Yes 03/08/25 16:39 HX of N/V After Surgery No 03/08/25 16:39 Non-Smoker Yes 03/08/25 16:39 Duration of Surgery greater No 03/08/25 16:39 than 60 minutes Number of Risk Factors 3 03/08/25 16:39 PONV Score Moderate Risk 03/08/25 16:39 Height & Weight Height & Weight: Anesthesia: Height & Weight Height 5 ft 3 in 03/13/25 05:56 Weight: 82.01 kg 03/13/25 05:56 Body Mass Index (BMI) 32.0 03/13/25 05:56 Respiratory Assessment Respiratory Assessment - oracle software engineer: Respiratory Tract Infection Hx - oracle software engineer Hx Respiratory Tract Infection No 03/08/25 16:39 STOP Sleep Apnea STOP Sleep Apnea - oracle software engineer: STOP Sleep Apnea - oracle software engineer Hx Hypertension Yes: CONTROLLED WITH MED 03/08/25 16:39 Hx Sleep Apnea No 03/08/25 16:39 CPAP No 03/08/25 16:39 BIPAP Do you snore loudly (louder No 03/08/25 16:39 than talking or can be heard Do you often feel tired/ No 03/08/25 16:39 fatigued/ sleepy during daytime? Has anyone observed you stop No 03/08/25 16:39 breathing during sleep? STOP Results Negative 03/08/25 16:39 QUESTION #5 FULL TEXT : Do you snore loudly (louder than talking or can be heard through closed doors)? 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 Specify any problems Hx of Preganancy in last 3 No 03/08/25 16:39 Months Nurse Filling Out Transfusion DSCHRIBER 03/08/25 16:39 & Questions: Date: 03/08/25 03/08/25 16:39 Time: 16:41 03/08/25 16:39 Patient unable to answer at this time (ie. confused, unrespo /Reproduction History /Reproductive History - oracle software engineer: /Reproductive Hx- oracle software engineer Hx Now No 03/08/25 16:39 Gestational Age (in weeks): EDC: Hx Hx Para Hx Section SAB No 03/08/25 16:39 Active Medications Active Medications: Current Medications Generic Name Dose Route Start Last Admin Trade Name Freq PRN Reason Stop Dose Admin Lactated Ringer's 1,000 mls @ 15 mls/hr 03/13/25 05:45 03/13/25 06:07 IV 15 mls/hr .Q48H MAXIMUS Administration PFSH Medical History Depression Chronic upset stomach Loss of hearing Bladder disease Heartburn History of edema History of stress test History of echocardiogram Cardiology follow-up encounter Essential hypertension Other acute postprocedural pain Wears glasses Arthritis Migraine headache Former smoker History of pain when walking Anticoagulant long-term use Paroxysmal atrial fibrillation Anxiety Obesity Paroxysmal supraventricular tachycardia Dizziness Palpitations Uterovaginal prolapse, incomplete Home Medications ?Medication ?Instructions ?Recorded ?Last Taken ?Type acetaminophen 500 mg tablet 1,000 mg PO Q8 PRN pain 07/23/22 10/13/24 01:00 History ascorbic acid (vitamin C) 500 mg 500 mg PO QAM osteoporosis 05/31/24 03/12/25 History tablet (Vitamin C) cholecalciferol (vitamin D3) 25 25 mcg PO QDAY SUPPLEMENT 05/31/24 03/12/25 History mcg (1,000 unit) tablet magnesium oxide 400 mg (241.3 mg 400 mg PO QHS SUPPLEMENT 10/03/24 03/11/25 History magnesium) tablet diltiazem HCl 240 mg 240 mg PO QHS HEART #30 caps 11/15/24 03/12/25 Rx capsule,extended release 24 hr (Cartia XT) apixaban 5 mg tablet (Eliquis) 5 mg PO BID BLOOD THINNER #180 tabs 01/06/25 03/11/25 Rx amoxicillin 500 mg capsule 500 mg PO BID 03/08/25 03/12/25 History aripiprazole 2 mg tablet (Abilify) 2 mg PO QHS 03/08/25 03/12/25 History paroxetine HCl 25 mg 25 mg PO QHS 03/08/25 03/12/25 History tablet,extended release 24 hr Allergy/AdvReac Type Severity Reaction Status Date / Time metoprolol AdvReac Mild Nausea Verified 03/13/25 05:52 flecainide AdvReac nausea Verified 03/13/25 05:52 Family History Mother CAD (coronary artery disease) Myocardial infarction, Onset Age: 80 Father Asthma COPD (chronic obstructive pulmonary disease) Brother Colon cancer COPD (chronic obstructive pulmonary disease) Former smoker Grandmother Breast cancer Grandfather Colon cancer Surgical History Hx of knee surgery History of knee replacement (02/18/24) History of total hip arthroplasty (05/08/21) Hx of total hip arthroplasty History of esophagogastroduodenoscopy (EGD) Hx of colonoscopy History of bladder suspension procedure (2018) H/O total hysterectomy (2018) Social History household members: spouse Smoking Status: Former smoker how long ago did patient quit smokin years ago alcohol intake: never substance use type: does not use caffeine: Yes Type: coffee Number of servings: 2 Review of Systems (Anesthesia) ROS Narrative System reviewed and no additional complaints, except as documented.
--- NOTE | 2025-03-13 06:52 | PCM.HP.STD ---
HPI - General General Date of Admission: 03/13/25 Date of Service: 03/13/25 Chief Complaint: nausea and vomiting HPI Narrative KRISTA TALAVERA, is a 75 F who presents for the evaluation of nausea Pt has been having daily nausea for about one year now. She has been working with her PCP to try and resolve this issue but despite medications nothing has helped. Her PCP thought her nausea was related to anxiety as her partner was undergoing treatment for tongue cancer when it started. SHe has been treated with numerous anti anxiety medications with no relief. She has tried zofran which helps sometimes but not always. Pt does not vomit. She has lack of appetite due to her nausea and has lost about 10 lbs in the last 6 weeks. She has a hx of constipation. She denies vomiting, heartburn, abd pain, or diarrhea. [facility] Medical History Depression Chronic upset stomach Loss of hearing Bladder disease Heartburn History of edema History of stress test History of echocardiogram Cardiology follow-up encounter Essential hypertension Other acute postprocedural pain Wears glasses Arthritis Migraine headache Former smoker History of pain when walking Anticoagulant long-term use Paroxysmal atrial fibrillation Anxiety Obesity Paroxysmal supraventricular tachycardia Dizziness Palpitations Uterovaginal prolapse, incomplete Home Medications ?Medication ?Instructions ?Recorded ?Last Taken ?Type acetaminophen 500 mg tablet 1,000 mg PO Q8 PRN pain 07/23/22 10/13/24 01:00 History ascorbic acid (vitamin C) 500 mg 500 mg PO QAM osteoporosis 05/31/24 03/12/25 History tablet (Vitamin C) cholecalciferol (vitamin D3) 25 25 mcg PO QDAY SUPPLEMENT 05/31/24 03/12/25 History mcg (1,000 unit) tablet magnesium oxide 400 mg (241.3 mg 400 mg PO QHS SUPPLEMENT 10/03/24 03/11/25 History magnesium) tablet diltiazem HCl 240 mg 240 mg PO QHS HEART #30 caps 11/15/24 03/12/25 Rx capsule,extended release 24 hr (Cartia XT) apixaban 5 mg tablet (Eliquis) 5 mg PO BID BLOOD THINNER #180 tabs 01/06/25 03/11/25 Rx amoxicillin 500 mg capsule 500 mg PO BID 03/08/25 03/12/25 History aripiprazole 2 mg tablet (Abilify) 2 mg PO QHS 03/08/25 03/12/25 History paroxetine HCl 25 mg 25 mg PO QHS 03/08/25 03/12/25 History tablet,extended release 24 hr Allergy/AdvReac Type Severity Reaction Status Date / Time metoprolol AdvReac Mild Nausea Verified 03/13/25 05:52 flecainide AdvReac nausea Verified 03/13/25 05:52 Family History Mother CAD (coronary artery disease) Myocardial infarction, Onset Age: 80 Father Asthma COPD (chronic obstructive pulmonary disease) Brother Colon cancer COPD (chronic obstructive pulmonary disease) Former smoker Grandmother Breast cancer Grandfather Colon cancer Surgical History Hx of knee surgery History of knee replacement (02/18/24) History of total hip arthroplasty (05/08/21) Hx of total hip arthroplasty History of esophagogastroduodenoscopy (EGD) Hx of colonoscopy History of bladder suspension procedure (2017) H/O total hysterectomy (2018) Social History household members: spouse Smoking Status: Former smoker how long ago did patient quit smokin years ago alcohol intake: never substance use type: does not use caffeine: Yes Type: coffee Number of servings: 2 ROS Constitutional Constitutional: Denies fatigue, fever(s), poor appetite, weight gain or weight loss Gastrointestinal Gastrointestinal: Denies belching, bloating, change in bowel habits, change in stool character, chewing difficulty, coffee ground emesis, constipation, cramping, diarrhea, dyspepsia, dysphagia, early satiety, excessive flatus, fecal incontinence, heartburn, hematemesis, hematochezia, hemorrhoids, loose stools, melena, nausea, odynophagia, rectal bleeding, tenesmus, vomiting or weight changes Vital Signs Vital Signs Vital Signs: 03/13/25 05:54 03/13/25 05:56 03/13/25 06:37 Temperature 97.6 F L 97.6 F L Temperature Source Temporal Pulse Rate 69 69 Respiratory Rate 18 18 Respiratory Pattern Normal Blood Pressure 145/53 H 145/53 H Blood Pressure Mean 83 Blood Pressure Source Monitor Blood Pressure Position Supine Blood Pressure Location Left Arm Pulse Ox 96 96 Oxygen Delivery Method Room Air Weight Weight: 180 lb 12.8 oz Body Mass Index (BMI) 32.0 Physical Exam Const alert, oriented x3, no apparent distress and healthy appearing General Appearance: cooperative GI normal to inspection, nondistended, normoactive bowel sounds, soft to palpation, non-tender and non-distended Percussion: normal to percussion Rectal Exam: deferred Assessment & Plan Assessment/Plan (1) Elevated liver enzymes: (2) Nausea & vomiting: PLAN: Assessment and Plan Assessment and Plan (1) Nausea and vomiting: Status: Acute Plan: This is a 74 yo female pt here today for evaluation of nausea x1 year. This started after her knee replacement and has continued since. Her PCP thought it may of been related to stress and she was put on anti anxiety medications which has not helped. She will be scheduled for an EGD to evaluate her upper GI tract. I will start her on pantoprazole 40 mg daily. In reviewing her chart, I see she has had elevated liver enzymes in the past. I will repeat these and order a gallbladder US. -EGD -Start PPI -CMP, lipase and CBC -Gallbladder US -f/u after testing (2) Elevated liver enzymes: Status: Acute Orders: Orders Comprehensive Metabolic Profil Today R11.2 - Nausea with vomiting, unspecified Lipase Today R11.2 - Nausea with vomiting, unspecified CBC W/Diff, Automated Today R11.2 - Nausea with vomiting, unspecified Gallbladder Today R11.2 - Nausea with vomiting, unspecified, R74.8 - Abnormal levels of other serum enzymes Medications: New pantoprazole 40 mg PO QDAY 30 tabs 1RF
--- NOTE | 2025-03-13 07:13 | OP.EGD_ITS ---
Patient Name: Joselin Singer Procedure Date: 03/13/2025 6:20 AM Date of : 1950 Age: 75 Procedure: Upper GI endoscopy Indications: Epigastric abdominal pain, Functional Dyspepsia, Indigestion Providers: French Coe DO Referring MD: Damian Craig Medicines: Monitored Anesthesia Care Patient Profile: This is a 75 year old female. Refer to note in patient chart for documentation of history and physical. Patient has symptoms of chronic nausea and chronic vomiting. Complications: No immediate complications. Procedure: Pre-Anesthesia Assessment: - Prior to the procedure, a History and Physical was performed, and patient medications and allergies were reviewed. The patient is competent. The risks and benefits of the procedure and the sedation options and risks were discussed with the patient. All questions were answered and informed consent was obtained. Patient identification and proposed procedure were verified by the physician in the pre-procedure area. Mental Status Examination: alert and oriented. Airway Examination: normal oropharyngeal airway and neck mobility. Respiratory Examination: clear to auscultation. CV Examination: normal. Prophylactic Antibiotics: The patient does not require prophylactic antibiotics. Prior Anticoagulants: The patient has taken no anticoagulant or antiplatelet agents except for NSAID medication. ASA Grade Assessment: II - A patient with mild systemic disease. After reviewing the risks and benefits, the patient was deemed in satisfactory condition to undergo the procedure. The anesthesia plan was to use monitored anesthesia care (MAC). Immediately prior to administration of medications, the patient was re-assessed for adequacy to receive sedatives. The heart rate, respiratory rate, oxygen saturations, blood pressure, adequacy of pulmonary ventilation, and response to care were monitored throughout the procedure. The physical status of the patient was re-assessed after the procedure. After obtaining informed consent, the endoscope was passed under direct vision. Throughout the procedure, the patient's blood pressure, pulse, and oxygen saturations were monitored continuously. The Endoscope was introduced through the mouth, and advanced to the fourth part of the duodenum. Small bowel enteroscopy was deemed necessary. The upper GI endoscopy was accomplished without difficulty. The patient tolerated the procedure well. Scope In: 7:02:12 AM Scope Out: 7:06:23 AM Total Procedure Duration Time 0 hours 4 minutes 11 seconds Findings: LA Grade A (one or more mucosal breaks less than 5 mm, not extending between tops of 2 mucosal folds) esophagitis with no bleeding was found 34 to 38 cm from the incisors. Biopsies were taken with a cold forceps for histology. Verification of patient identification for the specimen was done. Estimated blood loss was minimal. Suspect gastroparesis due to patient symptoms and retained gastric contents. Patchy moderate inflammation characterized by erosions, erythema and linear erosions was found in the gastric body. Biopsies were taken with a cold forceps for histology. Verification of patient identification for the specimen was done. Estimated blood loss was minimal. Biopsies were taken with a cold forceps for Helicobacter pylori testing. Verification of patient identification for the specimen was done. Estimated blood loss was minimal. Patchy mildly erythematous mucosa without active bleeding and with no stigmata of bleeding was found in the duodenal bulb, in the first portion of the duodenum, in the second portion of the duodenum and in the third portion of the duodenum. Biopsies were taken with a cold forceps for histology. Verification of patient identification for the specimen was done. Estimated blood loss was minimal. Impression: - LA Grade A reflux esophagitis with no bleeding. Biopsied. - Gastroparesis, idiopathic etiology. - Chronic gastritis. Biopsied. - Erythematous duodenopathy. Biopsied. Recommendation: - Discharge patient to home. - Resume previous diet. - Continue present medications. - Await pathology results. Procedure Code(s): --- Professional --- 60449, Small intestinal endoscopy, enteroscopy beyond second portion of duodenum, not including ileum; with biopsy, single or multiple CPT copyright 2021 [employer]. All rights reserved. The codes documented in this report are preliminary and upon geriatrics physician review may be revised to meet current compliance requirements. French Coe DO 03/13/2025 7:11:55 AM This report has been signed electronically. Number of Addenda: 0 Note Initiated On: 03/13/2025 6:20 AM
--- NOTE | 2025-03-13 07:13 | OP.CCLET_ITS ---
03/13/2025 Damian Craig [address] [place] [address] Re : Upper GI endoscopy procedure for Joselincamilo Singer Dear Dr. Craig This procedure was performed on Thursday, March 13, 2025. My impressions and recommendations are as follows: Impressions : - LA Grade A reflux esophagitis with no bleeding. Biopsied. - Gastroparesis, idiopathic etiology. - Chronic gastritis. Biopsied. - Erythematous duodenopathy. Biopsied. Recommendations : - Discharge patient to home. - Resume previous diet. - Continue present medications. - Await pathology results. My findings are described in the full procedure note, which is enclosed. If I can be of further assistance, please feel free to contact me at . Sincerely, French Coe, 03/13/2025 7:11:55 AM This report has been signed electronically.
--- NOTE | 2025-03-13 07:15 | PCM.POST.ANE ---
Anesthesia: Postop Eval I Current Vital Signs Temperature: 98.1 F Pulse Rate: 67 Blood Pressure: 121/57 Respiratory Rate: 16 Pulse Ox: 95 Oxygen Delivery Method: Room Air Assessment Airway patent: Yes Spontaneous unlabored respirations: Yes Mental status: Asleep nausea: No Vomiting: No Anesthesia Complication: No Fluid Hydration Crystalloid volume administer (ml): 200 Total IV fluid infused: 200 Progress Note Anesthesia document: Postop Eval 1 completed: Yes
--- NOTE | 2025-03-13 08:01 | PCM.POSTANE2 ---
Anesthesia Postop Eval I Sum Postop Eval Completion status Anesthesia document: Postop Eval 1 completed: Yes Anesthesia Postop Eval I Summary Anesthesia Postop Eval I Summary: Anesthesia Postop Eval I: Assessment Summary Airway patent Yes 03/13/25 07:15 [email or web address] Spontaneous unlabored Yes 03/13/25 07:15 [email or web address] respirations Mental status Asleep 03/13/25 07:15 [email or web address] nausea No 03/13/25 07:15 [email or web address] Vomiting No 03/13/25 07:15 [email or web address] Anesthesia Postop Eval I: Fluid Summary Crystalloid volume administer 200 03/13/25 07:15 [email or web address] (ml) Colloids volume administered ( ml) Blood Product volume administered (ml) Total IV fluid infused 200 03/13/25 07:15 [email or web address] Anesthesia Postop Eval I: Summary Notes Anesthesia Complication No 03/13/25 07:15 [email or web address] Anesthesia Complication Comment: Post-operative progress note Anesthesia: Postop Eval II Evaluation Mental status: Awake Pain Level: 0 nausea: No Vomiting: No
== END 2025-03-13 08:07 | disposition home or self-care (01) ==
LOC: EN 05:08 → AC 05:11
PROVIDERS: PCP Family Medicine; Referring Provider Family Medicine; Visit Provider Internal Medicine Gastroenterology
PROC: 0DJ08ZZ Inspection of Upper Intestinal Tract, Via Natural or Artificial Opening Endoscopic (ICD-10-PCS; CPT 43235; principal; 2025-03-13 06:25)
DX: K22.70 Barrett's esophagus without dysplasia (principal); K21.00 Gastro-esophageal reflux disease with esophagitis, without bleeding; R74.8 Abnormal levels of other serum enzymes; K31.84 Gastroparesis; K29.50 Unspecified chronic gastritis without bleeding; I10 Essential (primary) hypertension; F41.9 Anxiety disorder, unspecified; Z79.01 Long term (current) use of anticoagulants; Z87.891 Personal history of nicotine dependence; Z63.6 Dependent relative needing care at home; Z79.899 Other long term (current) drug therapy
CPT/HCPCS: 43239; 88305; 88342; J2405